=== PATIENT | male | born 1950 | race African-American/Black ===

== ENCOUNTER 2016-12-17 19:44 | Inpatient (IN) | payer OTHER ==
[2016-12-17 20:09] VITALS: BMI 47.0
--- NOTE | 2016-12-17 22:58 | PDOC ---
History of Present Illness - General History Source: Patient <Gordo Emerson - Last Filed: 12/18/16 01:12> - General History Source: Patient Exam Limitations: No Limitations - History of Present Illness Initial Comments: 12/17/16 23:10 The patient is a 65 year old male with significant past medical history of hypertension, hyperlipidemia, CKD, bladder CA with a urostomy s/p cystectomy () and cystostomy, CVA x2, and diabetes who presents to the ED for 4 days of chills. Patient reports he normally wears at sweatshirt at home because it gets cold. However, even with the sweatshirt on, he still has the chills. Denies any sick contacts. No urinary complaints as patient has a urostomy bag. Patient also has a complaints of generalized malaise. The patient denies fever, diaphoresis cough, SOB, chest pain, and palpitations. The patient denies abdominal pain, nausea, vomiting, and diarrhea. Allergies: NKDA Social History: No alcohol, tobacco, or drug use reported. Past Surgical History: s/p cystectomy (05/2014) and cystostomy PCP: Dr. Umang Howard Nephrology: Dr. Mariangel Kirkland <Olivia Yeh - Last Filed: 12/18/16 01:16> - General Chief Complaint: Weakness Stated Complaint: RESPIRATORY Time Seen by Provider: 12/17/16 22:56 Past History - Past Medical History Anemia: No Asthma: No Cancer: Yes (BLADDER CA W/REMOVAL AND UROSTOMY) Cardiac Disorders: ([facility]. DASH AT [facility]) CVA: Yes (2013) COPD: No CHF: No Dementia: No Diabetes: Yes Dialysis: No GI Disorders: No Disorders: Yes (UROSTOMY) HTN: Yes Hypercholesterolemia: Yes Liver Disease: No Seizures: No Thyroid Disease: No - Surgical History Abdominal Surgery: Yes (BLADDER REMOVED 05/2014 -UROSTOMY) Appendectomy: No Cardiac Surgery: No Cholecystectomy: No Lung Surgery: No Neurologic Surgery: No Orthopedic Surgery: Yes (left knee sx) - Immunization History Immunization Up to Date: Yes (FLU AND PNA UP TO DATE) - Psycho/Social/Smoking Cessation Hx Anxiety: No Suicidal Ideation: No Smoking Status: No Smoking History: Never smoked Have you smoked in the past 12 months: No If you are a former smoker, when did you quit?: 40 YRS AGO Information on smoking cessation initiated: No Hx Alcohol Use: No Drug/Substance Use Hx: No Substance Use Type: None Hx Substance Use Treatment: No <Gordo Emerson - Last Filed: 12/18/16 01:12> <ChapinLloyd sofiata - Last Filed: 12/18/16 01:16> - Past Medical History Allergies/Adverse Reactions: Allergies Allergy/AdvReac Type Severity Reaction Status Date / Time shrimp Allergy Intermediate Vomiting Verified 12/18/16 00:07 Home Medications: Ambulatory Orders Aspirin [Dianne Chewable Aspirin] 81 mg PO DAILY 07/30/15 Atorvastatin Ca [Lipitor] 10 mg PO HS 07/30/15 Doxazosin Mesylate 4 mg PO DAILY 07/30/15 Albuterol Sulfate [Proair Respiclick] 1 puff IH QID PRN 10/13/15 Ascorbate Calcium [Vitamin C] 500 mg PO DAILY 10/13/15 Beta-Carotene [Beta Carotene] 10,000 unit PO DAILY 10/13/15 Cholecalciferol (Vitamin D3) [Vitamin D3] 1,000 unit PO DAILY 10/13/15 Fluticasone/Salmeterol [Advair Hfa 115-21 Mcg Inhaler] 1 inh PO BID 10/13/15 Insulin Glargine,Hum.rec.anlog [Lantus (10mL VIAL) -] 0 units SQ ASDIR 10/13/15 Cyanocobalamin [Vitamin B12 -] 1,000 mcg PO DAILY 12/18/16 Furosemide [Lasix -] 40 mg PO BID 12/18/16 Gabapentin [Neurontin] 100 mg PO DAILY 12/18/16 Hydralazine HCl [Apresoline -] 50 mg PO DAILY 12/18/16 Multivitamins [Tab-A-Vit -] 1 tab PO DAILY 12/18/16 Sodium Bicarbonate - 650 mg PO BID 12/18/16 Review of Systems - Review of Systems Able to Perform ROS?: Yes Comments:: 12/17/16 23:11 CONSTITUTIONAL: +chills, generalized malaise Absent: fever, no fatigue EYES: Absent: visual changes ENT: Absent: ear pain, no sore throat CARDIOVASCULAR: Absent: chest pain, no palpitations RESPIRATORY: Absent: cough, no SOB GI: Absent: abdominal pain, no nausea, no vomiting, no constipation, no diarrhea GENITOURINARY: Absent: dysuria, no frequency, no hematuria MUSCULOSKELETAL: Absent: back pain, no arthralgia, no myalgia SKIN: Absent: rash NEURO: Absent: headache <Olivia Yeh - Last Filed: 12/18/16 01:16> *Physical Exam - Vital Signs Last Vital Signs Temp Pulse Resp BP Pulse Ox 100.5 F H 109 H 16 158/72 97 12/17/16 20:03 12/17/16 20:03 12/17/16 20:03 12/17/16 20:03 12/17/16 20:03 <Gordo Emerson - Last Filed: 12/18/16 01:12> - Vital Signs Last Vital Signs Temp Pulse Resp BP Pulse Ox 100.5 F H 109 H 16 158/72 97 12/17/16 20:03 12/17/16 20:03 12/17/16 20:03 12/17/16 20:03 12/17/16 20:03 - Physical Exam Comments: 12/17/16 23:11 GENERAL: Well-appearing, well-nourished. No apparent distress. HEENT: Normocephalic, atraumatic. PERRL, EOM intact. CARDIOVASCULAR: Normal S1, S2. Regular rate and rhythm. PULMONARY: Clear to auscultation bilaterally. ABDOMEN: Soft, non-distended, non-tender. : Urostomy bag site intact. Urine is yellow and clear. EXTREMITIES: Normal ROM in all four extremities. No gross deformities. SKIN: Warm, dry. No rash NEUROLOGICAL: No focal neurological deficits. <Olivia Yeh - Last Filed: 12/18/16 01:16> Heart Score/ECG Review - ECG Impressions Comment:: 12/17/16 23:16 Sinus tachycardia @106bpm Possible L atrial enlargement L anterior fascicular block L ventricular hypertrophy Abnormal ECG <Olivia Yeh - Last Filed: 12/18/16 01:16> ED Treatment Course - LABORATORY CBC & Chemistry Diagram: 12/17/16 23:30 12/17/16 23:30 <Gordo Emerson - Last Filed: 12/18/16 01:12> - LABORATORY CBC & Chemistry Diagram: 12/17/16 23:30 12/17/16 23:30 <Olivia Yeh - Last Filed: 12/18/16 01:16> Medical Decision Making - Medical Decision Making 12/18/16 01:12 Dr. Emerson: The scribe's documentation has been prepared under my direction and personally reviewed by me in its entirery. I confirm that the note above accurately reflects all work, treatment, procedures, and medical decision making performed by me. Pt to be admitted for IV Abx for UTI. Spoke to Dr. Anguiano. Will give ordrers to Med surg, <Gordo Emerson - Last Filed: 12/18/16 01:12> - Medical Decision Making 12/18/16 01:[address] Solomon Anguiano who is covering for Dr. Umang Howard (via answering service ) at 1:08 and patient's case was discussed. <Olivia Yeh - Last Filed: 12/18/16 01:16> *DC/Admit/Observation/Transfer - Discharge Dispostion Admit: Yes <Gordo Emerson - Last Filed: 12/18/16 01:12> - Attestations Scribe Attestion: 12/17/16 23:11 Documentation prepared by Olivia Yeh, acting as auditor medical claims for Gordo Emerson MD/DO. <Olivia Yeh - Last Filed: 12/18/16 01:16> Diagnosis at time of Disposition: Urinary tract infection, Fever - Referrals Referrals: Umang Howard MD [Primary Care Provider] -
[2016-12-17] MEDS ORDERED: SODIUM CHLORIDE 1,000 ML IV STA (22:59)
[2016-12-17] MEDS ORDERED: ACETAMINOPHEN 1000 MG/100 ML VIAL (NON FORMULARY) IVPB ONE (22:59)
[2016-12-17] MEDS ORDERED: ACETAMINOPHEN INJECTION 100 ML IVPB ONE (23:35)
[2016-12-17 23:42] LABS: MCH 27.5 pg (25.7-33.7); MCHC 32.6 g/dl (32.0-35.9); MEAN CELL VOLUME 84.2 fl (80-96); MEAN PLT VOLUME 8.4 fl (7.5-11.1); PLATELET COUNT 254 K/MM3 (134-434); RDW 15.2 % (11.9-15.9); WHITE BLOOD COUNT 23.2 K/mm3 (4.0-10.0)
[2016-12-17 23:51] LABS: INR 1.24 (0.82-1.09); PROTHROMBIN TIME (PATIENT) 13.7 SEC (9.98-11.88)
[2016-12-18 00:19] LABS: ALBUMIN 3.6 g/dl (3.4-5.0); ANION GAP 16 (8-16); CALCIUM 9.2 mg/dL (8.5-10.1); CO2 12 mmol/L (21-32); COCKROFT - GAULT 38.32; CREATININE 3.6 mg/dL (0.7-1.3); MAGNESIUM 2.4 mg/dL (1.8-2.4); SGOT/AST 10 U/L (15-37); SGPT/ALT 24 U/L (12-78)
[2016-12-18 00:23] LABS: ALK PHOS 79 U/L (45-117); BILIRUBIN,TOTAL 0.6 mg/dL (0.2-1.0); TOT PROT 8.4 g/dl (6.4-8.2); TROPONIN I < 0.02 ng/ml (0.00-0.05)
[2016-12-18 00:29] LABS: GLUCOSE,RANDOM 311 mg/dL (74-106)
[2016-12-18 01:13] LABS: URINE APPEARANCE CLOUDY; URINE BILIRUBIN NEGATIVE (NEGATIVE); URINE COLOR YELLOW; URINE GLUCOSE (UA) NEGATIVE (NEGATIVE); URINE KETONE NEGATIVE (NEGATIVE); URINE NITRITE NEGATIVE (NEGATIVE); URINE UROBILINOGEN NEGATIVE E.U./dl (0.2-1.0)
[2016-12-18 01:17] LABS: URINE BLOOD 1+ (NEGATIVE); URINE LEUK ESTERASE 2+ (NEGATIVE); URINE PROTEIN 2+ (NEGATIVE)
[2016-12-18] MEDS ORDERED: SODIUM CHLORIDE 1,000 ML IV SCH (01:30)
[2016-12-18] MEDS ORDERED: CEFTRIAXONE 50 ML ONE (01:30)
[2016-12-18 01:35] LABS: URINE BACTERIA RARE /hpf (NONE SEEN); URINE MUCUS RARE; URINE RBC 19 /hpf (0-3); URINE WBC 442 /hpf (3-5)
[2016-12-18] MEDS: INSULIN SLIDING SCALE (NOVOLOG) 1 VIAL SQ SCH ×4 (06:29→21:39)
[2016-12-18] MEDS ORDERED: PATIENT'S OWN MEDICATION (NON-FORMULARY) (Fluticasone/Salmeterol [Advair Hfa 115-21 Mcg In PO SCH (10:00)
[2016-12-18] MEDS: CHOLECALCIFEROL (VITAMIN D3) 1,000 UNIT TABLET (FP) PO SCH (11:22)
[2016-12-18] MEDS: ASPIRIN 81 MG CHEWABLE TABLETS PO SCH (11:22)
[2016-12-18] MEDS: hydrALAZINE HCL 50 MG TABLET (FP) PO SCH (11:22)
[2016-12-18] MEDS: GABAPENTIN 100 MG CAPSULE (FP) PO SCH (11:22)
[2016-12-18] MEDS: PANTOPRAZOLE 40 MG TABLET (FP) PO SCH (11:22)
[2016-12-18] MEDS: CYANOCOBALAMIN 1,000 MCG TABLET (FP) PO SCH (11:22)
[2016-12-18] MEDS: MULTIVITAMINS (DAILY MVI) TABLET (FP) PO SCH (11:23)
[2016-12-18] MEDS: SODIUM BICARBONATE 650 MG TABLET PO SCH ×2 (11:23→21:35)
[2016-12-18] MEDS ORDERED: INSULIN (NOVOLOG) ASPART 100 UNITS/ML 10ML VIAL ONE ×2 (11:29→20:52)
[2016-12-18] MEDS: ERTAPENEM SODIUM 1 GM in SODIUM CHLORIDE 50 ML IVPB SCH (11:33)
[2016-12-18 12:44] LABS: ARTERIAL BLD GAS O2 SATURATION 97.7 % (90-98.9); ARTERIAL BLOOD GAS BASE EXCESS -15.6 meq/l (-2-2); ARTERIAL BLOOD GAS HCO3 9.7 meq/L (22-26)
[2016-12-18 12:47] LABS: ALLENS TEST POSITIVE; ART PUNCT SITE RIGHT RADIAL; PT. ON O2? NO
[2016-12-18] MEDS: ACETAMINOPHEN 325 MG TABLET (FP) PO PRN ×2 (12:47→21:36)
[2016-12-18 12:48] LABS: ARTERIAL BLOOD GAS pH 7.26 (7.35-7.45)
--- NOTE | 2016-12-18 12:52 | CONSULT ---
Consult - text type - Consultation Consultation Note: Renal Consult for MEKA on CKD This is a 65 year old gentleman with PMhx of CKD stage 4 (baseline Cr ~2.3-2.8) , Bladder Ca s/p cystectomy with cystostomy, CVA, Hypertension, HLD, DM who presented with Chills and found to have UTI and MEKA on CKD. Pt reports feeling unwell for about 4-5 days. Denies seeing any blood in his urine or cloudy urine. No flank pain. No chest pain, sob, N/V/D. No NSAID use. No recent contrast exposure. PMhx: as above Allergies: NKDA Family Hx: NC Social Hx: No T/A/D ROS: as per HPI, all other pertinent ros negative Home Meds: Home Medications Medication Instructions Recorded Aspirin [Dianne Chewable Aspirin] 81 mg PO DAILY 07/30/15 Atorvastatin Ca [Lipitor] 10 mg PO HS 07/30/15 Doxazosin Mesylate 4 mg PO DAILY 07/30/15 Albuterol Sulfate [Proair 1 puff IH QID PRN 10/13/15 Respiclick] Ascorbate Calcium [Vitamin C] 500 mg PO DAILY 10/13/15 Beta-Carotene [Beta Carotene] 10,000 unit PO DAILY 10/13/15 Cholecalciferol (Vitamin D3) 1,000 unit PO DAILY 10/13/15 [Vitamin D3] Fluticasone/Salmeterol [Advair Hfa 1 inh PO BID 10/13/15 115-21 Mcg Inhaler] Insulin Glargine,Hum.rec.anlog 0 units SQ ASDIR 10/13/15 [Lantus (10mL VIAL) -] Cyanocobalamin [Vitamin B12 -] 1,000 mcg PO DAILY 12/18/16 Furosemide [Lasix -] 40 mg PO BID 12/18/16 Gabapentin [Neurontin] 100 mg PO DAILY 12/18/16 Hydralazine HCl [Apresoline -] 50 mg PO DAILY 12/18/16 Multivitamins [Tab-A-Vit -] 1 tab PO DAILY 12/18/16 Sodium Bicarbonate - 650 mg PO BID 12/18/16 Vital Signs Temperature 98.7 F 12/18/16 05:45 Pulse Rate 107 H 12/18/16 05:45 Respiratory Rate 20 12/18/16 05:45 Blood Pressure 114/72 12/18/16 05:45 O2 Sat by Pulse Oximetry (%) 99 12/18/16 05:45 Intake & Output 12/15/16 12/16/16 12/17/16 12/18/16 23:59 23:59 23:59 23:59 Intake Total 50 Balance 50 Weight 300 lb 291 lb 11.2 oz Gen: NAD, awake and alert CVS: RRR, No M/R Lungs: CTA, no rales Abd: soft NT/ND Ext: No edema, clubbing or cyanosis : Cystostomy on left LLQ Neuro: Awake and alert CBC, BMP 12/17/16 23:30 12/17/16 23:30 Laboratory Tests 12/17/16 12/17/16 12/17/16 23:30 23:30 23:30 MCV 84.2 Lactic Acid 1.7 Calcium 9.2 Albumin 3.6 Urine Protein Urine Blood Ur Leukocyte Esterase Urine RBC Urine WBC 12/18/16 00:57 MCV Lactic Acid Calcium Albumin Urine Protein 2+ H Urine Blood 1+ H Ur Leukocyte Esterase 2+ H Urine RBC 19 Urine WBC 442 Laboratory Tests 12/18/16 12:30 ABG pH 7.26 L D ABG pCO2 at Pt Temp 22.9 L ABG pO2 at Pt Temp 109.0 H ABG HCO3 9.7 L* Current Medications Acetaminophen (Tylenol -) 650 mg PO Q6H PRN PRN Reason: FEVER OR PAIN Last Admin: 12/18/16 12:47 Dose: 650 mg Aspirin (Asa -) 81 mg PO DAILY [facility] Last Admin: 12/18/16 11:22 Dose: 81 mg Atorvastatin Calcium (Lipitor -) 10 mg PO [facility] Cholecalciferol (Vitamin D3 -) 1,000 unit PO DAILY [facility] Last Admin: 12/18/16 11:22 Dose: 1,000 unit Cyanocobalamin (Vitamin B12 -) 1,000 mcg PO DAILY [facility] Last Admin: 12/18/16 11:22 Dose: 1,000 mcg Doxazosin Mesylate (Cardura -) 4 mg PO DAILY [facility] Gabapentin (Neurontin -) 100 mg PO DAILY [facility] Last Admin: 12/18/16 11:22 Dose: 100 mg Hydralazine HCl (Apresoline -) 50 mg PO DAILY [facility] Last Admin: 12/18/16 11:22 Dose: 50 mg Ertapenem 1 gm/ Sodium (Chloride) 50 mls @ 50 mls/hr IVPB DAILY [facility] PRN Reason: Protocol Last Admin: 12/18/16 11:33 Dose: 50 mls/hr Sodium Chloride (Normal Saline -) 1,000 mls @ 50 mls/hr IV ASDIR [facility] Stop: 12/19/16 01:30 Last Admin: 12/18/16 06:24 Dose: 50 mls/hr Insulin Aspart (Novolog Vial Sliding Scale -) 1 vial SQ ACHS [facility] PRN Reason: Protocol Last Admin: 12/18/16 11:40 Dose: 6 units Multivitamins/Minerals/Vitamin C (Tab-A-Vit -) 1 tab PO DAILY [facility] Last Admin: 12/18/16 11:23 Dose: 1 tab Non-Formulary Medication (Fluticasone/Salmeterol [Advair Hfa 115-21 Mcg Inhaler] ) 1 inh PO BID [facility] Ondansetron HCl (Zofran Injection) 4 mg IVPB Q6H PRN PRN Reason: NAUSEA Pantoprazole Sodium (Protonix -) 40 mg PO DAILY [facility] Last Admin: 12/18/16 11:22 Dose: 40 mg Sodium Bicarbonate (Sodium Bicarbonate -) 650 mg PO BID [facility] Last Admin: 12/18/16 11:23 Dose: 650 mg A/P 65 year old gentleman with PMhx of CKD stage 4 (baseline Cr ~2.3-2.8), Bladder Ca s/p cystectomy with cystostomy, CVA, Hypertension, HLD, DM who presented with Chills and found to have UTI and MEKA on CKD. #Acute Renal Failure likely etiology is volume depletion in setting of suspected UTI Check FeNa, UPCR continue isotonic IVF for now Trend BUN/Cr no indication for RECEPTIONIST Dose all meds for Cr Cl less then 15 #Non-anion gap metabolic acidosis with respiratory compensation secondary to Urinary Diversion causing chronic hypercloremic metabolic acidosis with worsening acidosis in setting of renal failure Start Bicarb gtt for now Pts outpatient bicab is usually 15-17. continue oral bicarb once Ph> 7.3 can d/c bicarb gtt and titrate oral bicab #UTI/Leukocytosis continue Abx as per primary/ID #Hx of Hypertension hold Cardura for now given marginal BP Thank you Will follow Freddie Forbes DO
[2016-12-18] MEDS ORDERED: ONDANSETRON 4 MG/2 ML VIAL IVPB PRN (12:53)
--- NOTE | 2016-12-18 12:56 | HP ---
Admitting History and Physical - Primary Care Physician PCP: Umang Howard - Admission Chief Complaint: I had chills History of Present Illness: Mr Isaacs is a pleasant 65 year old male who comes in with 4 days of chills. He says that he was very cold at home, particularly at night. He was wearing sweaters and was still feeling chills. He said he was shaking with this. He also had decreased appetite. He had pain on the right side of his back as well and he was concerned he had a kidney infection and for that came in. Aside from that he is without complaint. He denies fevers, lightheadedness, dizziness, passing out, chest pain, shortness of breath, nausea, vomiting, diarrhea, constipation, diarrhea, or swelling. He is still having chills and back pain. 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 History of Recent Travel: No Home Medications - Allergies Allergies/Adverse Reactions: Allergies Allergy/AdvReac Type Severity Reaction Status Date / Time shrimp Allergy Intermediate Vomiting Verified 12/18/16 00:07 - Home Medications Home Medications: Ambulatory Orders Aspirin [Dianne Chewable Aspirin] 81 mg PO DAILY 07/30/15 Atorvastatin Ca [Lipitor] 10 mg PO HS 07/30/15 Doxazosin Mesylate 4 mg PO DAILY 07/30/15 Albuterol Sulfate [Proair Respiclick] 1 puff IH QID PRN 10/13/15 Ascorbate Calcium [Vitamin C] 500 mg PO DAILY 10/13/15 Beta-Carotene [Beta Carotene] 10,000 unit PO DAILY 10/13/15 Cholecalciferol (Vitamin D3) [Vitamin D3] 1,000 unit PO DAILY 10/13/15 Fluticasone/Salmeterol [Advair Hfa 115-21 Mcg Inhaler] 1 inh PO BID 10/13/15 Insulin Glargine,Hum.rec.anlog [Lantus (10mL VIAL) -] 0 units SQ ASDIR 10/13/15 Cyanocobalamin [Vitamin B12 -] 1,000 mcg PO DAILY 12/18/16 Furosemide [Lasix -] 40 mg PO BID 12/18/16 Gabapentin [Neurontin] 100 mg PO DAILY 12/18/16 Hydralazine HCl [Apresoline -] 50 mg PO DAILY 12/18/16 Multivitamins [Tab-A-Vit -] 1 tab PO DAILY 12/18/16 Sodium Bicarbonate - 650 mg PO BID 12/18/16 Family Disease History - Family Disease History Family Disease History: Diabetes: Mother, CA: Father Review of Systems Findings/Remarks: Full review of systems obtained, as per HPI and otherwise negative Physical Examination Vital Signs: Vital Signs Temperature 98.7 F 12/18/16 05:45 Pulse Rate 107 H 12/18/16 05:45 Respiratory Rate 20 12/18/16 05:45 Blood Pressure 114/72 12/18/16 05:45 O2 Sat by Pulse Oximetry (%) 99 12/18/16 05:45 Constitutional: Yes: No Distress, Calm, Obese Eyes: Yes: Conjunctiva Clear, EOM Intact HENT: Yes: Atraumatic, Normocephalic Cardiovascular: Yes: Regular Rate and Rhythm. No: Gallop, Murmur, Rub Respiratory: Yes: Regular, CTA Bilaterally. No: Rales, Rhonchi, Wheezes Gastrointestinal: Yes: Normal Bowel Sounds, Soft. No: Distention, Tenderness Renal/: Yes: CVA Tenderness - Right Extremities: Yes: WNL Edema: No Labs: Laboratory Results - last 24 hr 12/17/16 12/17/16 12/17/16 23:30 23:30 23:30 WBC 23.2 H D RBC 4.47 Hgb 12.3 Hct 37.7 MCV 84.2 MCHC 32.6 RDW 15.2 Plt Count 254 MPV 8.4 Neutrophils % 93.0 H D Lymphocytes % 3.0 L D Monocytes % 3.0 L Eosinophils % 1.0 INR 1.24 H Puncture Site ABG pH ABG pCO2 at Pt Temp ABG pO2 at Pt Temp ABG HCO3 ABG O2 Sat (Measured) ABG O2 Content ABG Base Excess Ron Test Oxygen Flow Rate PEEP Sodium 136 Potassium 4.3 Chloride 108 H Carbon Dioxide 12 L Anion Gap 16 BUN 63 H Creatinine 3.6 H D Creat Clearance w eGFR 17.00 POC Glucometer Random Glucose 311 H* Lactic Acid Calcium 9.2 Magnesium Total Bilirubin 0.6 D AST 10 L D ALT 24 Alkaline Phosphatase 79 Creatine Kinase 127 Troponin I < 0.02 B-Natriuretic Peptide Total Protein 8.4 H Albumin 3.6 Lipase Urine Color Urine Appearance Urine pH Ur Specific [place] Urine Protein Urine Glucose (UA) Urine Ketones Urine Blood Urine Nitrite Urine Bilirubin Urine Urobilinogen Ur Leukocyte Esterase Urine RBC Urine WBC Ur Epithelial Cells Urine Bacteria Urine Mucus 12/17/16 12/17/16 12/18/16 23:30 23:30 00:57 WBC RBC Hgb Hct MCV MCHC RDW Plt Count MPV Neutrophils % Lymphocytes % Monocytes % Eosinophils % INR Puncture Site ABG pH ABG pCO2 at Pt Temp ABG pO2 at Pt Temp ABG HCO3 ABG O2 Sat (Measured) ABG O2 Content ABG Base Excess Ron Test Oxygen Flow Rate PEEP Sodium Potassium Chloride Carbon Dioxide Anion Gap BUN Creatinine Creat Clearance w eGFR POC Glucometer Random Glucose Lactic Acid 1.7 Calcium Magnesium 2.4 Total Bilirubin AST ALT Alkaline Phosphatase Creatine Kinase Troponin I B-Natriuretic Peptide 118.80 Total Protein Albumin Lipase 162 Urine Color Yellow Urine Appearance Cloudy Urine pH 8.0 D Ur Specific [place] 1.010 Urine Protein 2+ H Urine Glucose (UA) Negative Urine Ketones Negative Urine Blood 1+ H Urine Nitrite Negative Urine Bilirubin Negative Urine Urobilinogen Negative Ur Leukocyte Esterase 2+ H Urine RBC 19 Urine WBC 442 Ur Epithelial Cells Rare Urine Bacteria Rare Urine Mucus Rare 12/18/16 12/18/16 12/18/16 06:25 11:38 12:30 WBC RBC Hgb Hct MCV MCHC RDW Plt Count MPV Neutrophils % Lymphocytes % Monocytes % Eosinophils % INR Puncture Site Right radial ABG pH 7.26 L D ABG pCO2 at Pt Temp 22.9 L ABG pO2 at Pt Temp 109.0 H ABG HCO3 9.7 L* ABG O2 Sat (Measured) 97.7 ABG O2 Content 18.0 ABG Base Excess -15.6 L* Ron Test Positive Oxygen Flow Rate No PEEP 0.0 Sodium Potassium Chloride Carbon Dioxide Anion Gap BUN Creatinine Creat Clearance w eGFR POC Glucometer 307 288 Random Glucose Lactic Acid Calcium Magnesium Total Bilirubin AST ALT Alkaline Phosphatase Creatine Kinase Troponin I B-Natriuretic Peptide Total Protein Albumin Lipase Urine Color Urine Appearance Urine pH Ur Specific [place] Urine Protein Urine Glucose (UA) Urine Ketones Urine Blood Urine Nitrite Urine Bilirubin Urine Urobilinogen Ur Leukocyte Esterase Urine RBC Urine WBC Ur Epithelial Cells Urine Bacteria Urine Mucus Problem List - Problems (1) Sepsis Assessment/Plan: -as evidenced by leukocytosis with left shift, acidosis, and positive blood cultures -most likely source is UTI -admit to the hospital -antibiotics -hydration with IVF Code(s): A41.9 - SEPSIS, UNSPECIFIED ORGANISM Qualifiers: Qualified Code(s): A41.51 - Sepsis due to Escherichia coli [E. coli] (2) Metabolic acidosis Assessment/Plan: -secondary to infection -nephrology following -on bicarb gtt -treat underlying sepsis Code(s): E87.2 - ACIDOSIS (3) Urinary tract infection Assessment/Plan: -has history of ESBL e. coli -ID consulted -started on ertapenem -await culture results Code(s): N39.0 - URINARY TRACT INFECTION, SITE NOT SPECIFIED Qualifiers: Indwelling urinary catheter type: cystostomy catheter Encounter type: initial encounter (4) ARF (acute renal failure) Assessment/Plan: -with CKD -nephrology following -hydration with bicarb gtt Code(s): N17.9 - ACUTE KIDNEY FAILURE, UNSPECIFIED Qualifiers: Acute renal failure type: unspecified Qualified Code(s): N17.9 - Acute kidney failure, unspecified (5) Diabetes Assessment/Plan: -with hyperglycemia secondary to IVF -continue SSI Code(s): E11.9 - TYPE 2 DIABETES MELLITUS WITHOUT COMPLICATIONS Qualifiers: Diabetes mellitus type: type 2 Diabetes mellitus complication status: with kidney complications Diabetes mellitus complication detail: with chronic kidney disease Chronic kidney disease stage: stage 3 (moderate) Qualified Code(s): E11.22 - Type 2 diabetes mellitus with diabetic chronic kidney disease; N18.1 - Chronic kidney disease, stage 1; 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
--- NOTE | 2016-12-18 15:23 | CONSULT ---
Consult Consult Specialty:: ifectious diseases Referred by:: Reason for Consultation:: fever,uti - History of Present Illness Chief Complaint: fever,shaking and chills History of Present Illness: 65 year old male with significant past medical history of hypertension, hyperlipidemia, CKD, bladder CA with a urostomy s/p cystectomy (05/2014) and cystostomy, CVA x2, and diabetes who is admitted because 4 days of chills. Patient reports that he was wearing sweat shirt with hoods because he was feeling cold However, even with the sweatshirt on, he still has the chills. Denies any sick contacts. No urinary complaints as patient has a urostomy bag. Patient also has a complaints of generalized malaise. 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 Cardio/Vascular: Yes: HTN, Hyperlipdemia Renal/: Yes: Other (lucy durand) Endocrine: Yes: Diabetes Mellitus - Past Surgical History Past Surgical History: Yes: Cystectomy (05/2014) - Alcohol/Substance Use Hx Alcohol Use: No History of Substance Use: reports: None - Smoking History Smoking history: Never smoked Have you smoked in the past 12 months: No If you are a former smoker, when did you quit?: 40 YRS AGO - Social History Usual Living Arrangement: Alone ADL: Independent 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 History of Recent Travel: No Home Medications - Allergies Allergies/Adverse Reactions: Allergies Allergy/AdvReac Type Severity Reaction Status Date / Time shrimp Allergy Intermediate Vomiting Verified 12/18/16 00:07 - Home Medications Home Medications: Ambulatory Orders Aspirin [Dianne Chewable Aspirin] 81 mg PO DAILY 07/30/15 Atorvastatin Ca [Lipitor] 10 mg PO HS 07/30/15 Doxazosin Mesylate 4 mg PO DAILY 07/30/15 Albuterol Sulfate [Proair Respiclick] 1 puff IH QID PRN 10/13/15 Ascorbate Calcium [Vitamin C] 500 mg PO DAILY 10/13/15 Beta-Carotene [Beta Carotene] 10,000 unit PO DAILY 10/13/15 Cholecalciferol (Vitamin D3) [Vitamin D3] 1,000 unit PO DAILY 10/13/15 Fluticasone/Salmeterol [Advair Hfa 115-21 Mcg Inhaler] 1 inh PO BID 10/13/15 Insulin Glargine,Hum.rec.anlog [Lantus (10mL VIAL) -] 0 units SQ ASDIR 10/13/15 Cyanocobalamin [Vitamin B12 -] 1,000 mcg PO DAILY 12/18/16 Furosemide [Lasix -] 40 mg PO BID 12/18/16 Gabapentin [Neurontin] 100 mg PO DAILY 12/18/16 Hydralazine HCl [Apresoline -] 50 mg PO DAILY 12/18/16 Multivitamins [Tab-A-Vit -] 1 tab PO DAILY 12/18/16 Sodium Bicarbonate - 650 mg PO BID 12/18/16 Family Disease History - Family Disease History Family Disease History: Diabetes: Mother, CA: Father Review of Systems - Review of Systems Constitutional: reports: Chills, Fever, Other (sweats) Eyes: reports: No Symptoms Neck: reports: No Symptoms Cardiovascular: reports: No Symptoms Respiratory: reports: No Symptoms Gastrointestinal: reports: No Symptoms Genitourinary: reports: No Symptoms Musculoskeletal: reports: No Symptoms Integumentary: reports: No Symptoms Neurological: reports: No Symptoms Endocrine: reports: No Symptoms Hematology/Lymphatic: reports: No Symptoms Psychiatric: reports: No Symptoms Physical Exam Vital Signs: Vital Signs Temperature 98.7 F 12/18/16 05:45 Pulse Rate 107 H 12/18/16 05:45 Respiratory Rate 20 12/18/16 05:45 Blood Pressure 114/72 12/18/16 05:45 O2 Sat by Pulse Oximetry (%) 99 12/18/16 05:45 Constitutional: Yes: Calm, Mild Distress, Obese Eyes: Yes: Conjunctiva Clear Neck: Yes: Supple Cardiovascular: Yes: Regular Rate and Rhythm Respiratory: Yes: Regular, CTA Bilaterally Gastrointestinal: Yes: Normal Bowel Sounds, Soft, Other (urostomy bag in place) Renal/: Yes: Other (urostomy). No: CVA Tenderness - Left, CVA Tenderness - Right Musculoskeletal: Yes: WNL Extremities: Yes: WNL Neurological: Yes: Alert, Oriented Psychiatric: Yes: Alert, Oriented Imaging - Results Chest X-ray: Report Reviewed, Image Reviewed Assessment/Plan Problems (1) Sepsis Code(s): A41.9 - SEPSIS, UNSPECIFIED ORGANISM (2) Metabolic acidosis Code(s): E87.2 - ACIDOSIS (3) Urinary tract infection Code(s): N39.0 - URINARY TRACT INFECTION, SITE NOT SPECIFIED Qualifiers: Indwelling urinary catheter type: cystostomy catheter Encounter type: initial encounter (4) ARF (acute renal failure) Code(s): N17.9 - ACUTE KIDNEY FAILURE, UNSPECIFIED Qualifiers: Acute renal failure type: unspecified Qualified Code(s): N17.9 - Acute kidney failure, unspecified (5) Diabetes Code(s): E11.9 - TYPE 2 DIABETES MELLITUS WITHOUT COMPLICATIONS Qualifiers: Diabetes mellitus type: type 2 Diabetes mellitus complication status: with kidney complications Diabetes mellitus complication detail: with chronic kidney disease Chronic kidney disease stage: stage 3 (moderate) (6) Hypertension Code(s): I10 - ESSENTIAL (PRIMARY) HYPERTENSION Qualifiers: Hypertension type: essential hypertension Qualified Code(s): I10 - Essential (primary) hypertension gm negative bacteremia plan started on iv abx we will continue close watch on the patient if patient becomes septic monitor rest as per primary we will recx on thursday
--- NOTE | 2016-12-18 16:27 | EKG ---
Test Reason : Blood Pressure : / mmHG Vent. Rate : 106 BPM Atrial Rate : 106 BPM P-R Int : 190 ms QRS Dur : 104 ms QT Int : 352 ms P-R-T Axes : 033 -53 084 degrees QTc Int : 467 ms POOR DATA QUALITY, INTERPRETATION MAY BE ADVERSELY AFFECTED SINUS TACHYCARDIA POSSIBLE LEFT ATRIAL ENLARGEMENT LEFT ANTERIOR FASCICULAR BLOCK LEFT VENTRICULAR HYPERTROPHY ABNORMAL ECG WHEN COMPARED WITH ECG OF 13-OCT-2015 12:42, NO SIGNIFICANT CHANGE WAS FOUND Confirmed by GRACE CAMPBELL MD ([id number]) on 12/18/2016 4:27:00 PM Referred By: Confirmed By:GRACE CAMPBELL MD
[2016-12-18] MEDS: SODIUM BICARBONATE 8.4% - 150 MEQ in DEXTROSE 5%-WATER - 1,000 ML IV SCH (17:53)
[2016-12-18] MEDS: DOXAZOSIN MESYLATE 4 MG TABLET PO SCH (17:54)
[2016-12-18] MEDS: ATORVASTATIN CA 10 MG TABLET (FP) PO SCH (21:35)
[2016-12-19] MEDS: ACETAMINOPHEN 325 MG TABLET (FP) PO PRN (05:46)
[2016-12-19] MEDS: SODIUM BICARBONATE 8.4% - 150 MEQ in DEXTROSE 5%-WATER - 1,000 ML IV SCH ×3 (05:47→22:17)
[2016-12-19] MEDS: INSULIN SLIDING SCALE (NOVOLOG) 1 VIAL SQ SCH ×5 (06:23→22:16)
[2016-12-19 07:20] LABS: BASOPHIL 0.3 % (0-2.0); EOSINOPHIL 0.2 % (0-4.5); MCH 28.3 pg (25.7-33.7); MCHC 34.1 g/dl (32.0-35.9); MEAN CELL VOLUME 83.1 fl (80-96); NEUTROPHILS 89.7 % (42.8-82.8); PLATELET COUNT 213 K/MM3 (134-434); RDW 15.2 % (11.9-15.9); WHITE BLOOD COUNT 16.7 K/mm3 (4.0-10.0)
[2016-12-19 09:16] LABS: ALBUMIN 3.2 g/dl (3.4-5.0); BILIRUBIN,TOTAL 0.4 mg/dL (0.2-1.0); CALCIUM 8.4 mg/dL (8.5-10.1); COCKROFT - GAULT 40.65; CREATININE 3.3 mg/dL (0.7-1.3); TOT PROT 7.4 g/dl (6.4-8.2)
[2016-12-19] MEDS ORDERED: PT OWN MED DRAWER 7, Y5N ONE ×2 (09:21→09:23)
[2016-12-19] MEDS: PANTOPRAZOLE 40 MG TABLET (FP) PO SCH (09:34)
[2016-12-19] MEDS: GABAPENTIN 100 MG CAPSULE (FP) PO SCH (09:34)
[2016-12-19] MEDS: MULTIVITAMINS (DAILY MVI) TABLET (FP) PO SCH (09:34)
[2016-12-19] MEDS: CYANOCOBALAMIN 1,000 MCG TABLET (FP) PO SCH (09:34)
[2016-12-19] MEDS: ASPIRIN 81 MG CHEWABLE TABLETS PO SCH (09:34)
[2016-12-19] MEDS: hydrALAZINE HCL 50 MG TABLET (FP) PO SCH (09:34)
[2016-12-19] MEDS: CHOLECALCIFEROL (VITAMIN D3) 1,000 UNIT TABLET (FP) PO SCH (09:34)
[2016-12-19] MEDS: SODIUM BICARBONATE 650 MG TABLET PO SCH ×2 (09:34→22:16)
[2016-12-19] MEDS: DOXAZOSIN MESYLATE 4 MG TABLET PO SCH (09:35)
[2016-12-19] MEDS: ERTAPENEM SODIUM 1 GM in SODIUM CHLORIDE 50 ML IVPB SCH (09:42)
--- NOTE | 2016-12-19 10:40 | PN ---
Progress Note, Physician Chief Complaint: Mr Isaacs says he is feeling better today. Still with some chills but much improved. No cp, sob, n/v. - Current Medication List Current Medications: Active Medications Acetaminophen (Tylenol -) 650 mg PO Q6H PRN PRN Reason: FEVER OR PAIN Last Admin: 12/19/16 05:46 Dose: 650 mg Aspirin (Asa -) 81 mg PO DAILY [facility] Last Admin: 12/19/16 09:34 Dose: 81 mg Atorvastatin Calcium (Lipitor -) 10 mg PO HS [facility] Last Admin: 12/18/16 21:35 Dose: 10 mg Cholecalciferol (Vitamin D3 -) 1,000 unit PO DAILY [facility] Last Admin: 12/19/16 09:34 Dose: 1,000 unit Cyanocobalamin (Vitamin B12 -) 1,000 mcg PO DAILY [facility] Last Admin: 12/19/16 09:34 Dose: 1,000 mcg Doxazosin Mesylate (Cardura -) 4 mg PO DAILY [facility] Last Admin: 12/19/16 09:35 Dose: 4 mg Gabapentin (Neurontin -) 100 mg PO DAILY [facility] Last Admin: 12/19/16 09:34 Dose: 100 mg Hydralazine HCl (Apresoline -) 50 mg PO DAILY [facility] Last Admin: 12/19/16 09:34 Dose: 50 mg Ertapenem 1 gm/ Sodium (Chloride) 50 mls @ 50 mls/hr IVPB DAILY [facility] PRN Reason: Protocol Last Admin: 12/19/16 09:42 Dose: 50 mls/hr Sodium Bicarbonate 150 meq/ (Dextrose) 1,150 mls @ 100 mls/hr IV Q11H [facility] Insulin Aspart (Novolog Vial Sliding Scale -) 1 vial SQ ACHS [facility] PRN Reason: Protocol Last Admin: 12/19/16 06:24 Dose: 4 units Multivitamins/Minerals/Vitamin C (Tab-A-Vit -) 1 tab PO DAILY [facility] Last Admin: 12/19/16 09:34 Dose: 1 tab Non-Formulary Medication (Fluticasone/Salmeterol [Advair Hfa 115-21 Mcg Inhaler] ) 1 inh PO BID [facility] Ondansetron HCl (Zofran Injection) 4 mg IVPB Q6H PRN PRN Reason: NAUSEA Pantoprazole Sodium (Protonix -) 40 mg PO DAILY [facility] Last Admin: 12/19/16 09:34 Dose: 40 mg Sodium Bicarbonate (Sodium Bicarbonate -) 650 mg PO BID [facility] Last Admin: 12/19/16 09:34 Dose: 650 mg - Objective Vital Signs: Vital Signs Temperature 100.9 F H 12/19/16 06:00 Pulse Rate 106 H 12/19/16 06:00 Respiratory Rate 22 12/19/16 06:00 Blood Pressure 161/77 12/19/16 06:00 O2 Sat by Pulse Oximetry (%) 95 12/18/16 21:00 Constitutional: Yes: No Distress, Calm, Obese Cardiovascular: Yes: Regular Rate and Rhythm. No: Gallop, Murmur, Rub Respiratory: Yes: Regular, CTA Bilaterally. No: Rales, Rhonchi, Wheezes Gastrointestinal: Yes: Normal Bowel Sounds, Soft. No: Distention, Tenderness Extremities: Yes: WNL Edema: No Labs: CBC, BMP 12/19/16 06:00 12/19/16 06:00 INR, PTT INR 1.24 (0.82-1.09) H 12/17/16 23:30 Problem List - Problems (1) Sepsis Code(s): A41.9 - SEPSIS, UNSPECIFIED ORGANISM (2) Metabolic acidosis Code(s): E87.2 - ACIDOSIS (3) Urinary tract infection Code(s): N39.0 - URINARY TRACT INFECTION, SITE NOT SPECIFIED Qualifiers: Indwelling urinary catheter type: cystostomy catheter Encounter type: initial encounter (4) ARF (acute renal failure) Code(s): N17.9 - ACUTE KIDNEY FAILURE, UNSPECIFIED Qualifiers: Acute renal failure type: unspecified Qualified Code(s): N17.9 - Acute kidney failure, unspecified (5) Diabetes Code(s): E11.9 - TYPE 2 DIABETES MELLITUS WITHOUT COMPLICATIONS Qualifiers: Diabetes mellitus type: type 2 Diabetes mellitus complication status: with kidney complications Diabetes mellitus complication detail: with chronic kidney disease Chronic kidney disease stage: stage 3 (moderate) (6) Hypertension Code(s): I10 - ESSENTIAL (PRIMARY) HYPERTENSION Qualifiers: Hypertension type: essential hypertension Qualified Code(s): I10 - Essential (primary) hypertension Assessment/Plan (1) Sepsis Assessment/Plan -improving -both blood and urine culture are positive -continue IVF per nephrology -continue antibiotics per ID Code(s): A41.9 - SEPSIS, UNSPECIFIED ORGANISM Qualifiers: Qualified Code(s): A41.51 - Sepsis due to Escherichia coli [E. coli] (2) Metabolic acidosis Assessment/Plan: -has baseline non-anion gap metabolic acidosis -however worsened by sepsis -case d/w nephrology -increase rate of bicarb gtt Code(s): E87.2 - ACIDOSIS (3) Urinary tract infection Assessment/Plan: -urine culture with three different bacteria -continue ertapenem per ID -defer to Dr Baires if escalation is needed Code(s): N39.0 - URINARY TRACT INFECTION, SITE NOT SPECIFIED Qualifiers: Indwelling urinary catheter type: cystostomy catheter Encounter type: initial encounter (4) ARF (acute renal failure) Assessment/Plan: -with CKD -case d/w nephrology -increase rate of fluid -improving Code(s): N17.9 - ACUTE KIDNEY FAILURE, UNSPECIFIED Qualifiers: Acute renal failure type: unspecified Qualified Code(s): N17.9 - Acute kidney failure, unspecified (5) Diabetes Assessment/Plan: -with hyperglycemia secondary to IVF -continue SSI Code(s): E11.9 - TYPE 2 DIABETES MELLITUS WITHOUT COMPLICATIONS Qualifiers: Diabetes mellitus type: type 2 Diabetes mellitus complication status: with kidney complications Diabetes mellitus complication detail: with chronic kidney disease Chronic kidney disease stage: stage 3 (moderate) Qualified Code(s): E11.22 - Type 2 diabetes mellitus with diabetic chronic kidney disease; N18.1 - Chronic kidney disease, stage 1; Z79.4 - correction ( 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 of insulin (6) Hypertension Assessment/Plan: -continue cardura and hydralazine Code(s): I10 - ESSENTIAL (PRIMARY) HYPERTENSION Qualifiers: Hypertension type: essential hypertension Qualified Code(s): I10 - Essential (primary) hypertension
--- NOTE | 2016-12-19 11:04 | PN ---
Progress Note (short form) - Note Progress Note: Renal follow up for MEKA on CKD and Metabolic acidosis Pt seen and examined at the bedside no acute complaints reports that he feels much better good urine output from cystostomy Vital Signs Temperature 100.9 F H 12/19/16 06:00 Pulse Rate 106 H 12/19/16 06:00 Respiratory Rate 22 12/19/16 06:00 Blood Pressure 161/77 12/19/16 06:00 O2 Sat by Pulse Oximetry (%) 95 12/18/16 21:00 Intake & Output 12/16/16 12/17/16 12/18/16 12/19/16 23:59 23:59 23:59 23:59 Intake Total 860 913 Output Total 800 800 Balance 60 113 Weight 300 lb 291 lb 11.2 oz Gen: NAD, awake and alert CVS: RRR, No M/R Lungs: CTA, no rales Abd: soft NT/ND Ext: No edema, clubbing or cyanosis : Cystostomy on left LLQ Neuro: Awake and alert CBC, BMP 12/19/16 06:00 12/19/16 06:00 Laboratory Tests 12/19/16 06:00 Calcium 8.4 L Albumin 3.2 L Current Medications Acetaminophen (Tylenol -) 650 mg PO Q6H PRN PRN Reason: FEVER OR PAIN Last Admin: 12/19/16 05:46 Dose: 650 mg Aspirin (Asa -) 81 mg PO DAILY [facility] Last Admin: 12/19/16 09:34 Dose: 81 mg Atorvastatin Calcium (Lipitor -) 10 mg PO [facility] Last Admin: 12/18/16 21:35 Dose: 10 mg Cholecalciferol (Vitamin D3 -) 1,000 unit PO DAILY [facility] Last Admin: 12/19/16 09:34 Dose: 1,000 unit Cyanocobalamin (Vitamin B12 -) 1,000 mcg PO DAILY [facility] Last Admin: 12/19/16 09:34 Dose: 1,000 mcg Doxazosin Mesylate (Cardura -) 4 mg PO DAILY [facility] Last Admin: 12/19/16 09:35 Dose: 4 mg Gabapentin (Neurontin -) 100 mg PO DAILY [facility] Last Admin: 12/19/16 09:34 Dose: 100 mg Hydralazine HCl (Apresoline -) 50 mg PO DAILY [facility] Last Admin: 12/19/16 09:34 Dose: 50 mg Ertapenem 1 gm/ Sodium (Chloride) 50 mls @ 50 mls/hr IVPB DAILY [facility] PRN Reason: Protocol Last Admin: 12/19/16 09:42 Dose: 50 mls/hr Sodium Bicarbonate 150 meq/ (Dextrose) 1,150 mls @ 100 mls/hr IV Q11H [facility] Insulin Aspart (Novolog Vial Sliding Scale -) 1 vial SQ ACHS [facility] PRN Reason: Protocol Last Admin: 12/19/16 06:24 Dose: 4 units Multivitamins/Minerals/Vitamin C (Tab-A-Vit -) 1 tab PO DAILY [facility] Last Admin: 12/19/16 09:34 Dose: 1 tab Non-Formulary Medication (Fluticasone/Salmeterol [Advair Hfa 115-21 Mcg Inhaler] ) 1 inh PO BID [facility] Ondansetron HCl (Zofran Injection) 4 mg IVPB Q6H PRN PRN Reason: NAUSEA Pantoprazole Sodium (Protonix -) 40 mg PO DAILY [facility] Last Admin: 12/19/16 09:34 Dose: 40 mg Sodium Bicarbonate (Sodium Bicarbonate -) 650 mg PO BID [facility] Last Admin: 12/19/16 09:34 Dose: 650 mg A/P 65 year old gentleman with PMhx of CKD stage 4 (baseline Cr ~2.3-2.8), Bladder Ca s/p cystectomy with cystostomy, CVA, Hypertension, HLD, DM who presented with Chills and found to have UTI and MEKA on CKD. 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
[2016-12-19] MEDS ORDERED: INSULIN (NOVOLOG) ASPART 100 UNITS/ML 10ML VIAL ONE ×2 (11:53→22:08)
--- NOTE | 2016-12-19 13:21 | PN ---
Progress Note, Physician History of Present Illness: stable looks much better clinically feels much better - Current Medication List Current Medications: Active Medications Acetaminophen (Tylenol -) 650 mg PO Q6H PRN PRN Reason: FEVER OR PAIN Last Admin: 12/19/16 05:46 Dose: 650 mg Aspirin (Asa -) 81 mg PO DAILY [facility] Last Admin: 12/19/16 09:34 Dose: 81 mg Atorvastatin Calcium (Lipitor -) 10 mg PO HS [facility] Last Admin: 12/18/16 21:35 Dose: 10 mg Cholecalciferol (Vitamin D3 -) 1,000 unit PO DAILY [facility] Last Admin: 12/19/16 09:34 Dose: 1,000 unit Cyanocobalamin (Vitamin B12 -) 1,000 mcg PO DAILY [facility] Last Admin: 12/19/16 09:34 Dose: 1,000 mcg Doxazosin Mesylate (Cardura -) 4 mg PO DAILY [facility] Last Admin: 12/19/16 09:35 Dose: 4 mg Gabapentin (Neurontin -) 100 mg PO DAILY [facility] Last Admin: 12/19/16 09:34 Dose: 100 mg Hydralazine HCl (Apresoline -) 50 mg PO DAILY [facility] Last Admin: 12/19/16 09:34 Dose: 50 mg Ertapenem 1 gm/ Sodium (Chloride) 50 mls @ 50 mls/hr IVPB DAILY [facility] PRN Reason: Protocol Last Admin: 12/19/16 09:42 Dose: 50 mls/hr Sodium Bicarbonate 150 meq/ (Dextrose) 1,150 mls @ 100 mls/hr IV Q11H [facility] Last Admin: 12/19/16 12:24 Dose: 100 mls/hr Insulin Aspart (Novolog Vial Sliding Scale -) 1 vial SQ ACHS [facility] PRN Reason: Protocol Last Admin: 12/19/16 12:00 Dose: 6 units Multivitamins/Minerals/Vitamin C (Tab-A-Vit -) 1 tab PO DAILY [facility] Last Admin: 12/19/16 09:34 Dose: 1 tab Non-Formulary Medication (Fluticasone/Salmeterol [Advair Hfa 115-21 Mcg Inhaler] ) 1 inh PO BID [facility] Ondansetron HCl (Zofran Injection) 4 mg IVPB Q6H PRN PRN Reason: NAUSEA Pantoprazole Sodium (Protonix -) 40 mg PO DAILY [facility] Last Admin: 12/19/16 09:34 Dose: 40 mg Sodium Bicarbonate (Sodium Bicarbonate -) 650 mg PO BID [facility] Last Admin: 12/19/16 09:34 Dose: 650 mg - Objective Vital Signs: Vital Signs Temperature 100.9 F H 12/19/16 06:00 Pulse Rate 106 H 12/19/16 06:00 Respiratory Rate 22 12/19/16 06:00 Blood Pressure 161/77 12/19/16 06:00 O2 Sat by Pulse Oximetry (%) 95 12/18/16 21:00 Constitutional: Yes: No Distress, Calm, Obese Cardiovascular: Yes: Regular Rate and Rhythm Respiratory: Yes: Regular, CTA Bilaterally Gastrointestinal: Yes: Normal Bowel Sounds, Soft, Other (urostomy bag in place) Musculoskeletal: Yes: WNL Extremities: Yes: WNL Neurological: Yes: Alert, Oriented Psychiatric: Yes: Alert Labs: CBC, BMP 12/19/16 06:00 12/19/16 06:00 INR, PTT INR 1.24 (0.82-1.09) H 12/17/16 23:30 Assessment/Plan Problems (1) Sepsis Code(s): A41.9 - SEPSIS, UNSPECIFIED ORGANISM (2) Metabolic acidosis Code(s): E87.2 - ACIDOSIS (3) Urinary tract infection Code(s): N39.0 - URINARY TRACT INFECTION, SITE NOT SPECIFIED Qualifiers: Indwelling urinary catheter type: cystostomy catheter Encounter type: initial encounter (4) ARF (acute renal failure) Code(s): N17.9 - ACUTE KIDNEY FAILURE, UNSPECIFIED Qualifiers: Acute renal failure type: unspecified Qualified Code(s): N17.9 - Acute kidney failure, unspecified (5) Diabetes Code(s): E11.9 - TYPE 2 DIABETES MELLITUS WITHOUT COMPLICATIONS Qualifiers: Diabetes mellitus type: type 2 Diabetes mellitus complication status: with kidney complications Diabetes mellitus complication detail: with chronic kidney disease Chronic kidney disease stage: stage 3 (moderate) (6) Hypertension Code(s): I10 - ESSENTIAL (PRIMARY) HYPERTENSION Qualifiers: Hypertension type: essential hypertension Qualified Code(s): I10 - Essential (primary) hypertension gm negative bacteremia plan continue iv abx perkins end blood cx tomorrow await for identification of the bacteria and sensitivities rest as per primary team
[2016-12-19 15:23] LABS: SODIUM,RANDOM URINE 32 MMOL/L
[2016-12-19 15:24] LABS: CHLORIDE,RANDOM URINE < 10 MMOL/L
[2016-12-19] MEDS: ATORVASTATIN CA 10 MG TABLET (FP) PO SCH (22:16)
[2016-12-20] MEDS: INSULIN SLIDING SCALE (NOVOLOG) 1 VIAL SQ SCH ×4 (06:15→22:19)
[2016-12-20] MEDS: SODIUM BICARBONATE 8.4% - 150 MEQ in DEXTROSE 5%-WATER - 1,000 ML IV SCH ×3 (06:16→22:18)
[2016-12-20 07:21] LABS: BASOPHIL 0.3 % (0-2.0); EOSINOPHIL 0.8 % (0-4.5); MCH 28.9 pg (25.7-33.7); MCHC 35.6 g/dl (32.0-35.9); MEAN CELL VOLUME 81.1 fl (80-96); MEAN PLT VOLUME 7.9 fl (7.5-11.1); PLATELET COUNT 221 K/MM3 (134-434); RDW 15.2 % (11.9-15.9); WHITE BLOOD COUNT 10.5 K/mm3 (4.0-10.0)
--- NOTE | 2016-12-20 07:28 | PN ---
Progress Note (short form) - Note Progress Note: Renal follow up for MEKA on CKD and Metabolic acidosis Pt seen and examined at the bedside no complaints denies sob, chest pain, abd pain, fever Vital Signs Temperature 100.2 F H 12/19/16 22:00 Pulse Rate 92 H 12/19/16 22:00 Respiratory Rate 20 12/19/16 22:00 Blood Pressure 153/74 12/19/16 22:00 O2 Sat by Pulse Oximetry (%) 96 12/19/16 21:00 Intake & Output 12/17/16 12/18/16 12/19/16 12/20/16 23:59 23:59 23:59 23:59 Intake Total 860 1363 Output Total 800 1775 Balance 60 -412 Weight 300 lb 291 lb 11.2 oz Gen: NAD, awake and alert CVS: RRR, No M/R Lungs: CTA, no rales Abd: soft NT/ND Ext: No edema, clubbing or cyanosis : Cystostomy on left LLQ Todays labs pending Current Medications Acetaminophen (Tylenol -) 650 mg PO Q6H PRN PRN Reason: FEVER OR PAIN Last Admin: 12/19/16 05:46 Dose: 650 mg Aspirin (Asa -) 81 mg PO DAILY [facility] Last Admin: 12/19/16 09:34 Dose: 81 mg Atorvastatin Calcium (Lipitor -) 10 mg PO HS [facility] Last Admin: 12/19/16 22:16 Dose: 10 mg Cholecalciferol (Vitamin D3 -) 1,000 unit PO DAILY [facility] Last Admin: 12/19/16 09:34 Dose: 1,000 unit Cyanocobalamin (Vitamin B12 -) 1,000 mcg PO DAILY [facility] Last Admin: 12/19/16 09:34 Dose: 1,000 mcg Doxazosin Mesylate (Cardura -) 4 mg PO DAILY [facility] Last Admin: 12/19/16 09:35 Dose: 4 mg Gabapentin (Neurontin -) 100 mg PO DAILY [facility] Last Admin: 12/19/16 09:34 Dose: 100 mg Hydralazine HCl (Apresoline -) 50 mg PO DAILY [facility] Last Admin: 12/19/16 09:34 Dose: 50 mg Ertapenem 1 gm/ Sodium (Chloride) 50 mls @ 50 mls/hr IVPB DAILY [facility] PRN Reason: Protocol Last Admin: 06/02/17 09:42 Dose: 50 mls/hr Sodium Bicarbonate 150 meq/ (Dextrose) 1,150 mls @ 100 mls/hr IV Q11H [facility] Last Admin: 12/20/16 06:16 Dose: 100 mls/hr Insulin Aspart (Novolog Vial Sliding Scale -) 1 vial SQ ACHS [facility] PRN Reason: Protocol Last Admin: 12/20/16 06:15 Dose: 4 units Multivitamins/Minerals/Vitamin C (Tab-A-Vit -) 1 tab PO DAILY [facility] Last Admin: 12/19/16 09:34 Dose: 1 tab Non-Formulary Medication (Fluticasone/Salmeterol [Advair Hfa 115-21 Mcg Inhaler] ) 1 inh PO BID [facility] Ondansetron HCl (Zofran Injection) 4 mg IVPB Q6H PRN PRN Reason: NAUSEA Pantoprazole Sodium (Protonix -) 40 mg PO DAILY [facility] Last Admin: 12/19/16 09:34 Dose: 40 mg Sodium Bicarbonate (Sodium Bicarbonate -) 650 mg PO BID [facility] Last Admin: 12/19/16 22:16 Dose: 650 mg A/P 65 year old gentleman with PMhx of CKD stage 4 (baseline Cr ~2.3-2.8), Bladder Ca s/p cystectomy with cystostomy, CVA, Hypertension, HLD, DM who presented with Chills and found to have UTI and MEKA on CKD. #Acute Renal Failure likely etiology is volume depletion in setting of suspected UTI todays labs pending pt with good urine production #Non-anion gap metabolic acidosis with respiratory compensation secondary to Urinary Diversion causing chronic hypercloremic metabolic acidosis with worsening acidosis in setting of renal failure continue bicarb gtt and titrate based on todays labs urine anion gap is positive #UTI/Leukocytosis continue Abx as per primary/ID #Hx of Hypertension on Eb Forbes DO
[2016-12-20 08:21] LABS: CALCIUM 8.5 mg/dL (8.5-10.1); COCKROFT - GAULT 43.27; CREATININE 3.1 mg/dL (0.7-1.3); MAGNESIUM 2.5 mg/dL (1.8-2.4); PHOSPHOROUS 2.5 mg/dL (2.5-4.9)
[2016-12-20] MEDS ORDERED: PT OWN MED DRAWER 7, Y5N ONE (09:53)
--- NOTE | 2016-12-20 10:52 | PN ---
Progress Note, Physician History of Present Illness: stable improving wbc trending down still with some chills port removed - Current Medication List Current Medications: Active Medications Acetaminophen (Tylenol -) 650 mg PO Q6H PRN PRN Reason: FEVER OR PAIN Last Admin: 12/19/16 05:46 Dose: 650 mg Aspirin (Asa -) 81 mg PO DAILY [facility] Last Admin: 12/19/16 09:34 Dose: 81 mg Atorvastatin Calcium (Lipitor -) 10 mg PO HS [facility] Last Admin: 12/19/16 22:16 Dose: 10 mg Cholecalciferol (Vitamin D3 -) 1,000 unit PO DAILY [facility] Last Admin: 12/19/16 09:34 Dose: 1,000 unit Cyanocobalamin (Vitamin B12 -) 1,000 mcg PO DAILY [facility] Last Admin: 12/19/16 09:34 Dose: 1,000 mcg Doxazosin Mesylate (Cardura -) 4 mg PO DAILY [facility] Last Admin: 12/19/16 09:35 Dose: 4 mg Gabapentin (Neurontin -) 100 mg PO DAILY [facility] Last Admin: 12/19/16 09:34 Dose: 100 mg Hydralazine HCl (Apresoline -) 50 mg PO DAILY [facility] Last Admin: 12/19/16 09:34 Dose: 50 mg Ertapenem 1 gm/ Sodium (Chloride) 50 mls @ 50 mls/hr IVPB DAILY [facility] PRN Reason: Protocol Last Admin: 12/19/16 09:42 Dose: 50 mls/hr Sodium Bicarbonate 150 meq/ (Dextrose) 1,150 mls @ 100 mls/hr IV Q11H [facility] Last Admin: 12/20/16 06:16 Dose: 100 mls/hr Insulin Aspart (Novolog Vial Sliding Scale -) 1 vial SQ ACHS [facility] PRN Reason: Protocol Last Admin: 12/20/16 06:15 Dose: 4 units Multivitamins/Minerals/Vitamin C (Tab-A-Vit -) 1 tab PO DAILY [facility] Last Admin: 12/19/16 09:34 Dose: 1 tab Non-Formulary Medication (Fluticasone/Salmeterol [Advair Hfa 115-21 Mcg Inhaler] ) 1 inh PO BID [facility] Ondansetron HCl (Zofran Injection) 4 mg IVPB Q6H PRN PRN Reason: NAUSEA Pantoprazole Sodium (Protonix -) 40 mg PO DAILY [facility] Last Admin: 12/19/16 09:34 Dose: 40 mg Sodium Bicarbonate (Sodium Bicarbonate -) 650 mg PO BID [facility] Last Admin: 12/19/16 22:16 Dose: 650 mg - Objective Vital Signs: Vital Signs Temperature 100.8 F H 12/20/16 06:00 Pulse Rate 90 12/20/16 06:00 Respiratory Rate 20 12/20/16 06:00 Blood Pressure 150/77 12/20/16 06:00 O2 Sat by Pulse Oximetry (%) 96 12/19/16 21:00 Constitutional: Yes: No Distress, Calm, Obese Cardiovascular: Yes: Regular Rate and Rhythm Respiratory: Yes: Regular, CTA Bilaterally Gastrointestinal: Yes: Normal Bowel Sounds, Soft Musculoskeletal: Yes: WNL Extremities: Yes: WNL Neurological: Yes: Alert, Oriented Psychiatric: Yes: Alert Labs: CBC, BMP 12/20/16 06:30 12/20/16 06:30 INR, PTT INR 1.24 (0.82-1.09) H 12/17/16 23:30 Assessment/Plan Problems (1) Sepsis Code(s): A41.9 - SEPSIS, UNSPECIFIED ORGANISM (2) Metabolic acidosis Code(s): E87.2 - ACIDOSIS (3) Urinary tract infection Code(s): N39.0 - URINARY TRACT INFECTION, SITE NOT SPECIFIED Qualifiers: Indwelling urinary catheter type: cystostomy catheter Encounter type: initial encounter (4) ARF (acute renal failure) Code(s): N17.9 - ACUTE KIDNEY FAILURE, UNSPECIFIED Qualifiers: Acute renal failure type: unspecified Qualified Code(s): N17.9 - Acute kidney failure, unspecified (5) Diabetes Code(s): E11.9 - TYPE 2 DIABETES MELLITUS WITHOUT COMPLICATIONS Qualifiers: Diabetes mellitus type: type 2 Diabetes mellitus complication status: with kidney complications Diabetes mellitus complication detail: with chronic kidney disease Chronic kidney disease stage: stage 3 (moderate) (6) Hypertension Code(s): I10 - ESSENTIAL (PRIMARY) HYPERTENSION Qualifiers: Hypertension type: essential hypertension Qualified Code(s): I10 - Essential (primary) hypertension gm negative bacteremia plan continue iv abx blood cx ordered rest ct current mgmt await for identification of the bacteria and sensitivities
[2016-12-20] MEDS: MULTIVITAMINS (DAILY MVI) TABLET (FP) PO SCH (10:59)
[2016-12-20] MEDS: PANTOPRAZOLE 40 MG TABLET (FP) PO SCH (10:59)
[2016-12-20] MEDS: ASPIRIN 81 MG CHEWABLE TABLETS PO SCH (10:59)
[2016-12-20] MEDS: SODIUM BICARBONATE 650 MG TABLET PO SCH (10:59)
[2016-12-20] MEDS: DOXAZOSIN MESYLATE 4 MG TABLET PO SCH (10:59)
[2016-12-20] MEDS: CYANOCOBALAMIN 1,000 MCG TABLET (FP) PO SCH (10:59)
[2016-12-20] MEDS: CHOLECALCIFEROL (VITAMIN D3) 1,000 UNIT TABLET (FP) PO SCH (10:59)
[2016-12-20] MEDS: hydrALAZINE HCL 50 MG TABLET (FP) PO SCH (10:59)
[2016-12-20] MEDS: GABAPENTIN 100 MG CAPSULE (FP) PO SCH (10:59)
--- NOTE | 2016-12-20 11:09 | PN ---
Progress Note, Physician Chief Complaint: Mr Isaacs says he is doing much better. No cp, sob, n/v. States chills have resolved. - Current Medication List Current Medications: Active Medications Acetaminophen (Tylenol -) 650 mg PO Q6H PRN PRN Reason: FEVER OR PAIN Last Admin: 12/19/16 05:46 Dose: 650 mg Aspirin (Asa -) 81 mg PO DAILY [facility] Last Admin: 12/20/16 10:59 Dose: 81 mg Atorvastatin Calcium (Lipitor -) 10 mg PO HS [facility] Last Admin: 12/19/16 22:16 Dose: 10 mg Cholecalciferol (Vitamin D3 -) 1,000 unit PO DAILY [facility] Last Admin: 12/20/16 10:59 Dose: 1,000 unit Cyanocobalamin (Vitamin B12 -) 1,000 mcg PO DAILY [facility] Last Admin: 12/20/16 10:59 Dose: 1,000 mcg Doxazosin Mesylate (Cardura -) 4 mg PO DAILY [facility] Last Admin: 12/20/16 10:59 Dose: 4 mg Gabapentin (Neurontin -) 100 mg PO DAILY [facility] Last Admin: 12/20/16 10:59 Dose: 100 mg Hydralazine HCl (Apresoline -) 50 mg PO DAILY [facility] Last Admin: 12/20/16 10:59 Dose: 50 mg Ertapenem 1 gm/ Sodium (Chloride) 50 mls @ 50 mls/hr IVPB DAILY [facility] PRN Reason: Protocol Last Admin: 12/19/16 09:42 Dose: 50 mls/hr Sodium Bicarbonate 150 meq/ (Dextrose) 1,150 mls @ 100 mls/hr IV Q11H [facility] Last Admin: 12/20/16 06:16 Dose: 100 mls/hr Insulin Aspart (Novolog Vial Sliding Scale -) 1 vial SQ ACHS [facility] PRN Reason: Protocol Last Admin: 12/20/16 06:15 Dose: 4 units Multivitamins/Minerals/Vitamin C (Tab-A-Vit -) 1 tab PO DAILY [facility] Last Admin: 12/20/16 10:59 Dose: 1 tab Non-Formulary Medication (Fluticasone/Salmeterol [Advair Hfa 115-21 Mcg Inhaler] ) 1 inh PO BID [facility] Ondansetron HCl (Zofran Injection) 4 mg IVPB Q6H PRN PRN Reason: NAUSEA Pantoprazole Sodium (Protonix -) 40 mg PO DAILY [facility] Last Admin: 12/20/16 10:59 Dose: 40 mg Sodium Bicarbonate (Sodium Bicarbonate -) 650 mg PO BID [facility] Last Admin: 12/20/16 10:59 Dose: 650 mg - Objective Vital Signs: Vital Signs Temperature 100.8 F H 12/20/16 06:00 Pulse Rate 90 12/20/16 06:00 Respiratory Rate 20 12/20/16 06:00 Blood Pressure 150/77 12/20/16 06:00 O2 Sat by Pulse Oximetry (%) 96 12/19/16 21:00 Constitutional: Yes: No Distress, Calm, Obese Cardiovascular: Yes: Regular Rate and Rhythm. No: Gallop, Murmur, Rub Respiratory: Yes: Regular, CTA Bilaterally. No: Rales, Rhonchi, Wheezes Gastrointestinal: Yes: Normal Bowel Sounds, Soft. No: Distention, Tenderness Extremities: Yes: WNL Edema: No Labs: CBC, BMP 12/20/16 06:30 12/20/16 06:30 INR, PTT INR 1.24 (0.82-1.09) H 12/17/16 23:30 Problem List - Problems (1) Sepsis Code(s): A41.9 - SEPSIS, UNSPECIFIED ORGANISM (2) Metabolic acidosis Code(s): E87.2 - ACIDOSIS (3) Urinary tract infection Code(s): N39.0 - URINARY TRACT INFECTION, SITE NOT SPECIFIED Qualifiers: Indwelling urinary catheter type: cystostomy catheter Encounter type: initial encounter (4) ARF (acute renal failure) Code(s): N17.9 - ACUTE KIDNEY FAILURE, UNSPECIFIED Qualifiers: Acute renal failure type: unspecified Qualified Code(s): N17.9 - Acute kidney failure, unspecified (5) Diabetes Code(s): E11.9 - TYPE 2 DIABETES MELLITUS WITHOUT COMPLICATIONS Qualifiers: Diabetes mellitus type: type 2 Diabetes mellitus complication status: with kidney complications Diabetes mellitus complication detail: with chronic kidney disease Chronic kidney disease stage: stage 3 (moderate) (6) Hypertension Code(s): I10 - ESSENTIAL (PRIMARY) HYPERTENSION Qualifiers: Hypertension type: essential hypertension Qualified Code(s): I10 - Essential (primary) hypertension Assessment/Plan (1) Sepsis Assessment/Plan -continues to improve -await culture results -continue IVF and antibiotics Code(s): A41.9 - SEPSIS, UNSPECIFIED ORGANISM Qualifiers: Qualified Code(s): A41.51 - Sepsis due to Escherichia coli [E. coli] (2) Metabolic acidosis Assessment/Plan: -nephrology following -on bicarb gtt -improving Code(s): E87.2 - ACIDOSIS (3) Urinary tract infection Assessment/Plan: -follow up urine culture -continue ertapenem per ID -defer to Dr Baires if escalation is needed Code(s): N39.0 - URINARY TRACT INFECTION, SITE NOT SPECIFIED Qualifiers: Indwelling urinary catheter type: cystostomy catheter Encounter type: initial encounter (4) ARF (acute renal failure) Assessment/Plan: -with CKD -IVF per nephrology -slow improvement Code(s): N17.9 - ACUTE KIDNEY FAILURE, UNSPECIFIED Qualifiers: Acute renal failure type: unspecified Qualified Code(s): N17.9 - Acute kidney failure, unspecified (5) Diabetes Assessment/Plan: -with hyperglycemia secondary to IVF -continue SSI Code(s): E11.9 - TYPE 2 DIABETES MELLITUS WITHOUT COMPLICATIONS Qualifiers: Diabetes mellitus type: type 2 Diabetes mellitus complication status: with kidney complications Diabetes mellitus complication detail: with chronic kidney disease Chronic kidney disease stage: stage 3 (moderate) Qualified Code(s): E11.22 - Type 2 diabetes mellitus with diabetic chronic kidney disease; N18.1 - Chronic kidney disease, stage 1; Z79.4 - intermediate ( 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 of insulin (6) Hypertension Assessment/Plan: -continue cardura and hydralazine Code(s): I10 - ESSENTIAL (PRIMARY) HYPERTENSION Qualifiers: Hypertension type: essential hypertension Qualified Code(s): I10 - Essential (primary) hypertension
[2016-12-20] MEDS ORDERED: INSULIN (NOVOLOG) ASPART 100 UNITS/ML 10ML VIAL ONE (12:09)
[2016-12-20] MEDS: ERTAPENEM SODIUM 1 GM in SODIUM CHLORIDE 50 ML IVPB SCH (12:16)
[2016-12-20] MEDS: ATORVASTATIN CA 10 MG TABLET (FP) PO SCH (22:19)
[2016-12-21] MEDS: SODIUM BICARBONATE 650 MG TABLET PO SCH ×4 (01:36→21:48)
[2016-12-21] MEDS: SODIUM BICARBONATE 8.4% - 150 MEQ in DEXTROSE 5%-WATER - 1,000 ML IV SCH ×2 (06:10→10:51)
[2016-12-21] MEDS: INSULIN SLIDING SCALE (NOVOLOG) 1 VIAL SQ SCH ×4 (06:28→21:50)
--- NOTE | 2016-12-21 07:41 | PN ---
Progress Note (short form) - Note Progress Note: Renal follow up for MEKA on CKD and Metabolic acidosis Pt seen and examined at the bedside complains of mucus in his throat no sob, chest pain on bicarb gtt good urine output Vital Signs Temperature 99 F 12/21/16 06:00 Pulse Rate 81 12/21/16 06:00 Respiratory Rate 20 12/21/16 06:00 Blood Pressure 141/85 12/21/16 06:00 O2 Sat by Pulse Oximetry (%) 97 12/20/16 21:15 Intake & Output 12/18/16 12/19/16 12/20/16 12/21/16 23:59 23:59 23:59 23:59 Intake Total 860 1363 2450 1200 Output Total 800 1775 3050 450 Balance 60 -412 -600 750 Weight 291 lb 11.2 oz Gen: NAD, awake and alert CVS: RRR, No M/R Lungs: CTA, no rales Abd: soft NT/ND Ext: No edema, clubbing or cyanosis : Cystostomy on left LLQ CBC, BMP 12/20/16 06:30 12/20/16 06:30 Current M Laboratory Tests 12/20/16 06:30 Calcium 8.5 Phosphorus 2.5 D Magnesium 2.5 H edications Acetaminophen (Tylenol -) 650 mg PO Q6H PRN PRN Reason: FEVER OR PAIN Last Admin: 12/19/16 05:46 Dose: 650 mg Aspirin (Asa -) 81 mg PO DAILY [facility] Last Admin: 12/20/16 10:59 Dose: 81 mg Atorvastatin Calcium (Lipitor -) 10 mg PO HS [facility] Last Admin: 12/20/16 22:19 Dose: 10 mg Cholecalciferol (Vitamin D3 -) 1,000 unit PO DAILY [facility] Last Admin: 12/20/16 10:59 Dose: 1,000 unit Cyanocobalamin (Vitamin B12 -) 1,000 mcg PO DAILY [facility] Last Admin: 12/20/16 10:59 Dose: 1,000 mcg Doxazosin Mesylate (Cardura -) 4 mg PO DAILY [facility] Last Admin: 12/20/16 10:59 Dose: 4 mg Gabapentin (Neurontin -) 100 mg PO DAILY [facility] Last Admin: 12/20/16 10:59 Dose: 100 mg Hydralazine HCl (Apresoline -) 50 mg PO DAILY [facility] Last Admin: 12/20/16 10:59 Dose: 50 mg Ertapenem 1 gm/ Sodium (Chloride) 50 mls @ 50 mls/hr IVPB DAILY [facility] PRN Reason: Protocol Last Admin: 12/20/16 12:16 Dose: 50 mls/hr Sodium Bicarbonate 150 meq/ (Dextrose) 1,150 mls @ 100 mls/hr IV Q11H [facility] Last Admin: 12/21/16 06:10 Dose: Not Given Insulin Aspart (Novolog Vial Sliding Scale -) 1 vial SQ ACHS [facility] PRN Reason: Protocol Last Admin: 12/21/16 06:28 Dose: 8 units Multivitamins/Minerals/Vitamin C (Tab-A-Vit -) 1 tab PO DAILY [facility] Last Admin: 12/20/16 10:59 Dose: 1 tab Non-Formulary Medication (Fluticasone/Salmeterol [Advair Hfa 115-21 Mcg Inhaler] ) 1 inh PO BID [facility] Ondansetron HCl (Zofran Injection) 4 mg IVPB Q6H PRN PRN Reason: NAUSEA Pantoprazole Sodium (Protonix -) 40 mg PO DAILY [facility] Last Admin: 12/20/16 10:59 Dose: 40 mg Sodium Bicarbonate (Sodium Bicarbonate -) 650 mg PO BID [facility] Last Admin: 12/21/16 01:36 Dose: 650 mg A/P 65 year old gentleman with PMhx of CKD stage 4 (baseline Cr ~2.3-2.8), Bladder Ca s/p cystectomy with cystostomy, CVA, Hypertension, HLD, DM who presented with Chills and found to have UTI and MEKA on CKD. #Acute Renal Failure Renal function with gradual improvement can continue istonic IVF #Non-anion gap metabolic acidosis with respiratory compensation secondary to Urinary Diversion causing chronic hypercloremic metabolic acidosis with worsening acidosis in setting of renal failure continue bicarb gtt, if Bicarb > 15 on todays labs can if planed for D/C change bicarb gtt to oral bicarb at 650mg TID #UTI/Leukocytosis continue Abx as per primary/ID #Hx of Hypertension on Carura #Mucus/Throast Congestion start Mucomyst Jose Forbes DO
[2016-12-21 08:47] LABS: BASOPHIL 0.2 % (0-2.0); EOSINOPHIL 2.1 % (0-4.5); MCH 28.4 pg (25.7-33.7); MCHC 35.2 g/dl (32.0-35.9); MEAN CELL VOLUME 80.8 fl (80-96); NEUTROPHILS 77.9 % (42.8-82.8); PLATELET COUNT 205 K/MM3 (134-434); RDW 15.1 % (11.9-15.9)
[2016-12-21 08:55] LABS: CALCIUM 8.3 mg/dL (8.5-10.1); COCKROFT - GAULT 49.68; CREATININE 2.7 mg/dL (0.7-1.3); MAGNESIUM 2.5 mg/dL (1.8-2.4); PHOSPHOROUS 2.2 mg/dL (2.5-4.9)
[2016-12-21] MEDS ORDERED: PT OWN MED DRAWER 7, Y5N ONE (10:47)
[2016-12-21] MEDS: GABAPENTIN 100 MG CAPSULE (FP) PO SCH (11:09)
[2016-12-21] MEDS: PANTOPRAZOLE 40 MG TABLET (FP) PO SCH (11:09)
[2016-12-21] MEDS: ASPIRIN 81 MG CHEWABLE TABLETS PO SCH (11:10)
[2016-12-21] MEDS: CHOLECALCIFEROL (VITAMIN D3) 1,000 UNIT TABLET (FP) PO SCH (11:10)
[2016-12-21] MEDS: CYANOCOBALAMIN 1,000 MCG TABLET (FP) PO SCH (11:10)
[2016-12-21] MEDS: DOXAZOSIN MESYLATE 4 MG TABLET PO SCH (11:10)
[2016-12-21] MEDS: MULTIVITAMINS (DAILY MVI) TABLET (FP) PO SCH (11:10)
[2016-12-21] MEDS: hydrALAZINE HCL 50 MG TABLET (FP) PO SCH (11:10)
[2016-12-21] MEDS: ERTAPENEM SODIUM 1 GM in SODIUM CHLORIDE 50 ML IVPB SCH (11:13)
--- NOTE | 2016-12-21 12:06 | PN ---
Progress Note, Physician Chief Complaint: Mr Isaacs is without complaint and says he feels good. No cp, sob, n/v. - Current Medication List Current Medications: Active Medications Acetaminophen (Tylenol -) 650 mg PO Q6H PRN PRN Reason: FEVER OR PAIN Last Admin: 12/19/16 05:46 Dose: 650 mg Acetylcysteine (Mucomyst 20 Oral / Inh Use Only*) 5 mg NEB Q6H PRN PRN Reason: Congetion Aspirin (Asa -) 81 mg PO DAILY [facility] Last Admin: 12/21/16 11:10 Dose: 81 mg Atorvastatin Calcium (Lipitor -) 10 mg PO HS [facility] Last Admin: 12/20/16 22:19 Dose: 10 mg Cholecalciferol (Vitamin D3 -) 1,000 unit PO DAILY [facility] Last Admin: 12/21/16 11:10 Dose: 1,000 unit Cyanocobalamin (Vitamin B12 -) 1,000 mcg PO DAILY [facility] Last Admin: 12/21/16 11:10 Dose: 1,000 mcg Doxazosin Mesylate (Cardura -) 4 mg PO DAILY [facility] Last Admin: 12/21/16 11:10 Dose: 4 mg Gabapentin (Neurontin -) 100 mg PO DAILY [facility] Last Admin: 12/21/16 11:09 Dose: 100 mg Hydralazine HCl (Apresoline -) 50 mg PO DAILY [facility] Last Admin: 12/21/16 11:10 Dose: 50 mg Ertapenem 1 gm/ Sodium (Chloride) 50 mls @ 50 mls/hr IVPB DAILY [facility] PRN Reason: Protocol Last Admin: 12/21/16 11:13 Dose: 50 mls/hr Insulin Aspart (Novolog Vial Sliding Scale -) 1 vial SQ ACHS [facility] PRN Reason: Protocol Last Admin: 12/21/16 11:52 Dose: 8 units Insulin Detemir (Levemir Vial) 10 units SQ BID [facility] Multivitamins/Minerals/Vitamin C (Tab-A-Vit -) 1 tab PO DAILY [facility] Last Admin: 12/21/16 11:10 Dose: 1 tab Non-Formulary Medication (Fluticasone/Salmeterol [Advair Hfa 115-21 Mcg Inhaler] ) 1 inh PO BID [facility] Ondansetron HCl (Zofran Injection) 4 mg IVPB Q6H PRN PRN Reason: NAUSEA Pantoprazole Sodium (Protonix -) 40 mg PO DAILY [facility] Last Admin: 12/21/16 11:09 Dose: 40 mg Sodium Bicarbonate (Sodium Bicarbonate -) 650 mg PO TID [facility] - Objective Vital Signs: Vital Signs Temperature 99 F 12/21/16 06:00 Pulse Rate 80 12/21/16 10:00 Respiratory Rate 18 12/21/16 10:00 Blood Pressure 144/80 12/21/16 10:00 O2 Sat by Pulse Oximetry (%) 97 12/21/16 09:00 Constitutional: Yes: No Distress, Calm, Obese Cardiovascular: Yes: Regular Rate and Rhythm. No: Gallop, Murmur, Rub Respiratory: Yes: Regular, CTA Bilaterally. No: Rales, Rhonchi, Wheezes Gastrointestinal: Yes: Normal Bowel Sounds, Soft. No: Tenderness Extremities: Yes: WNL Edema: No Labs: CBC, BMP 12/21/16 06:30 12/21/16 06:30 INR, PTT INR 1.24 (0.82-1.09) H 12/17/16 23:30 Problem List - Problems (1) Sepsis Code(s): A41.9 - SEPSIS, UNSPECIFIED ORGANISM (2) Metabolic acidosis Code(s): E87.2 - ACIDOSIS (3) Urinary tract infection Code(s): N39.0 - URINARY TRACT INFECTION, SITE NOT SPECIFIED Qualifiers: Indwelling urinary catheter type: cystostomy catheter Encounter type: initial encounter (4) ARF (acute renal failure) Code(s): N17.9 - ACUTE KIDNEY FAILURE, UNSPECIFIED Qualifiers: Acute renal failure type: unspecified Qualified Code(s): N17.9 - Acute kidney failure, unspecified (5) Diabetes Code(s): E11.9 - TYPE 2 DIABETES MELLITUS WITHOUT COMPLICATIONS Qualifiers: Diabetes mellitus type: type 2 Diabetes mellitus complication status: with kidney complications Diabetes mellitus complication detail: with chronic kidney disease Chronic kidney disease stage: stage 3 (moderate) (6) Hypertension Code(s): I10 - ESSENTIAL (PRIMARY) HYPERTENSION Qualifiers: Hypertension type: essential hypertension Qualified Code(s): I10 - Essential (primary) hypertension Assessment/Plan (1) Sepsis Assessment/Plan -blood culture growing ESBL e. coli -continue ertapanem Code(s): A41.9 - SEPSIS, UNSPECIFIED ORGANISM Qualifiers: Qualified Code(s): A41.51 - Sepsis due to Escherichia coli [E. coli] (2) Metabolic acidosis Assessment/Plan: -at baseline -bicarb gtt discontinued -restarted oral bicarb Code(s): E87.2 - ACIDOSIS (3) Urinary tract infection Assessment/Plan: -urine culture growing esbl e.coli and providencii -continue ertapenem per ID Code(s): N39.0 - URINARY TRACT INFECTION, SITE NOT SPECIFIED Qualifiers: Indwelling urinary catheter type: cystostomy catheter Encounter type: initial encounter (4) ARF (acute renal failure) Assessment/Plan: -with CKD -IVF per nephrology -slow improvement Code(s): N17.9 - ACUTE KIDNEY FAILURE, UNSPECIFIED Qualifiers: Acute renal failure type: unspecified Qualified Code(s): N17.9 - Acute kidney failure, unspecified (5) Diabetes Assessment/Plan: -patient says runs high at home -on SSI at home per patient -start levemir 10 units bid Code(s): E11.9 - TYPE 2 DIABETES MELLITUS WITHOUT COMPLICATIONS Qualifiers: Diabetes mellitus type: type 2 Diabetes mellitus complication status: with kidney complications Diabetes mellitus complication detail: with chronic kidney disease Chronic kidney disease stage: stage 3 (moderate) Qualified Code(s): E11.22 - Type 2 diabetes mellitus with diabetic chronic kidney disease; N18.1 - Chronic kidney disease, stage 1; Z79.4 - director long term care ( 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 of insulin (6) Hypertension Assessment/Plan: -continue cardura and hydralazine Code(s): I10 - ESSENTIAL (PRIMARY) HYPERTENSION Qualifiers: Hypertension type: essential hypertension Qualified Code(s): I10 - Essential (primary) hypertension
[2016-12-21] MEDS ORDERED: ACETYLCYSTEINE 20% 200MG/ML 30 ML VIAL *FOR ORAL / INH USE ONLY NEB PRN (12:21)
--- NOTE | 2016-12-21 12:35 | PN ---
Progress Note, Physician History of Present Illness: stable still with some chills wbc normalized - Current Medication List Current Medications: Active Medications Acetaminophen (Tylenol -) 650 mg PO Q6H PRN PRN Reason: FEVER OR PAIN Last Admin: 12/19/16 05:46 Dose: 650 mg Acetylcysteine (Mucomyst 20 Oral / Inh Use Only*) 1,000 mg NEB Q6H PRN PRN Reason: Congestion Aspirin (Asa -) 81 mg PO DAILY [facility] Last Admin: 12/21/16 11:10 Dose: 81 mg Atorvastatin Calcium (Lipitor -) 10 mg PO HS [facility] Last Admin: 12/20/16 22:19 Dose: 10 mg Cholecalciferol (Vitamin D3 -) 1,000 unit PO DAILY [facility] Last Admin: 12/21/16 11:10 Dose: 1,000 unit Cyanocobalamin (Vitamin B12 -) 1,000 mcg PO DAILY [facility] Last Admin: 12/21/16 11:10 Dose: 1,000 mcg Doxazosin Mesylate (Cardura -) 4 mg PO DAILY [facility] Last Admin: 12/21/16 11:10 Dose: 4 mg Gabapentin (Neurontin -) 100 mg PO DAILY [facility] Last Admin: 12/21/16 11:09 Dose: 100 mg Hydralazine HCl (Apresoline -) 50 mg PO DAILY [facility] Last Admin: 12/21/16 11:10 Dose: 50 mg Ertapenem 1 gm/ Sodium (Chloride) 50 mls @ 50 mls/hr IVPB DAILY [facility] PRN Reason: Protocol Last Admin: 12/21/16 11:13 Dose: 50 mls/hr Insulin Aspart (Novolog Vial Sliding Scale -) 1 vial SQ ACHS [facility] PRN Reason: Protocol Last Admin: 12/21/16 11:52 Dose: 8 units Insulin Detemir (Levemir Vial) 10 units SQ BID [facility] Multivitamins/Minerals/Vitamin C (Tab-A-Vit -) 1 tab PO DAILY [facility] Last Admin: 12/21/16 11:10 Dose: 1 tab Non-Formulary Medication (Fluticasone/Salmeterol [Advair Hfa 115-21 Mcg Inhaler] ) 1 inh PO BID [facility] Ondansetron HCl (Zofran Injection) 4 mg IVPB Q6H PRN PRN Reason: NAUSEA Pantoprazole Sodium (Protonix -) 40 mg PO DAILY [facility] Last Admin: 12/21/16 11:09 Dose: 40 mg Sodium Bicarbonate (Sodium Bicarbonate -) 650 mg PO TID [facility] - Objective Vital Signs: Vital Signs Temperature 99 F 12/21/16 06:00 Pulse Rate 80 12/21/16 10:00 Respiratory Rate 18 12/21/16 10:00 Blood Pressure 144/80 12/21/16 10:00 O2 Sat by Pulse Oximetry (%) 97 12/21/16 09:00 Constitutional: Yes: No Distress, Calm, Obese, Other Cardiovascular: Yes: Regular Rate and Rhythm Respiratory: Yes: Regular, CTA Bilaterally Gastrointestinal: Yes: Normal Bowel Sounds, Soft, Other (urosotomy site is good) Musculoskeletal: Yes: WNL Extremities: Yes: WNL Neurological: Yes: Alert, Oriented Psychiatric: Yes: Alert, Oriented Labs: CBC, BMP 12/21/16 06:30 12/21/16 06:30 INR, PTT INR 1.24 (0.82-1.09) H 12/17/16 23:30 Assessment/Plan Problems (1) Sepsis Code(s): A41.9 - SEPSIS, UNSPECIFIED ORGANISM (2) Metabolic acidosis Code(s): E87.2 - ACIDOSIS (3) Urinary tract infection Code(s): N39.0 - URINARY TRACT INFECTION, SITE NOT SPECIFIED Qualifiers: Indwelling urinary catheter type: cystostomy catheter Encounter type: initial encounter (4) ARF (acute renal failure) Code(s): N17.9 - ACUTE KIDNEY FAILURE, UNSPECIFIED Qualifiers: Acute renal failure type: unspecified Qualified Code(s): N17.9 - Acute kidney failure, unspecified (5) Diabetes Code(s): E11.9 - TYPE 2 DIABETES MELLITUS WITHOUT COMPLICATIONS Qualifiers: Diabetes mellitus type: type 2 Diabetes mellitus complication status: with kidney complications Diabetes mellitus complication detail: with chronic kidney disease Chronic kidney disease stage: stage 3 (moderate) (6) Hypertension Code(s): I10 - ESSENTIAL (PRIMARY) HYPERTENSION Qualifiers: Hypertension type: essential hypertension Qualified Code(s): I10 - Essential (primary) hypertension gm negative bacteremia plan continue iv abx await repeat blood cx report rest ct current mgmt await for sensitivities
[2016-12-21] MEDS ORDERED: INSULIN (NOVOLOG) ASPART 100 UNITS/ML 10ML VIAL ONE (21:03)
[2016-12-21] MEDS: ATORVASTATIN CA 10 MG TABLET (FP) PO SCH (21:48)
[2016-12-21] MEDS: INSULIN DETEMIR 100 UNITS/ML MDV SQ SCH (21:48)
[2016-12-22] MEDS: INSULIN SLIDING SCALE (NOVOLOG) 1 VIAL SQ SCH ×4 (06:22→21:33)
[2016-12-22] MEDS: SODIUM BICARBONATE 650 MG TABLET PO SCH ×3 (06:22→21:32)
[2016-12-22 08:05] LABS: BASOPHIL 0.4 % (0-2.0); EOSINOPHIL 3.2 % (0-4.5); MCH 28.3 pg (25.7-33.7); MCHC 34.9 g/dl (32.0-35.9); MEAN CELL VOLUME 81.2 fl (80-96); MEAN PLT VOLUME 7.6 fl (7.5-11.1); NEUTROPHILS 71.5 % (42.8-82.8); PLATELET COUNT 219 K/MM3 (134-434); RDW 15.2 % (11.9-15.9); WHITE BLOOD COUNT 8.4 K/mm3 (4.0-10.0)
[2016-12-22 08:33] LABS: ALBUMIN 2.6 g/dl (3.4-5.0); BILIRUBIN,TOTAL 0.4 mg/dL (0.2-1.0); CALCIUM 8.4 mg/dL (8.5-10.1); COCKROFT - GAULT 50.88; CREATININE 2.6 mg/dL (0.7-1.3); MAGNESIUM 2.3 mg/dL (1.8-2.4); PHOSPHOROUS 2.8 mg/dL (2.5-4.9); TOT PROT 6.4 g/dl (6.4-8.2)
[2016-12-22] MEDS: PANTOPRAZOLE 40 MG TABLET (FP) PO SCH (09:36)
[2016-12-22] MEDS: CHOLECALCIFEROL (VITAMIN D3) 1,000 UNIT TABLET (FP) PO SCH (09:36)
[2016-12-22] MEDS: CYANOCOBALAMIN 1,000 MCG TABLET (FP) PO SCH (09:36)
[2016-12-22] MEDS: hydrALAZINE HCL 50 MG TABLET (FP) PO SCH (09:36)
[2016-12-22] MEDS: GABAPENTIN 100 MG CAPSULE (FP) PO SCH (09:36)
[2016-12-22] MEDS: MULTIVITAMINS (DAILY MVI) TABLET (FP) PO SCH (09:36)
[2016-12-22] MEDS: ASPIRIN 81 MG CHEWABLE TABLETS PO SCH (09:37)
[2016-12-22] MEDS: INSULIN DETEMIR 100 UNITS/ML MDV SQ SCH ×2 (09:42→21:31)
--- NOTE | 2016-12-22 10:51 | PN ---
Progress Note (short form) - Note Progress Note: Renal follow up for MEKA on CKD and Metabolic acidosis Pt seen and examined at the bedside has pain over his right shoulder where the old tunneled catheter was no fevers, + chills no sob, cough, N/V/D Vital Signs Temperature 98 F 12/22/16 09:45 Pulse Rate 78 12/22/16 09:45 Respiratory Rate 18 12/22/16 09:45 Blood Pressure 164/78 12/22/16 09:45 O2 Sat by Pulse Oximetry (%) 97 12/21/16 22:00 Intake & Output 12/19/16 12/20/16 12/21/16 12/22/16 23:59 23:59 23:59 23:59 Intake Total 1363 2450 2800 200 Output Total 1775 3050 1450 700 Balance -412 -600 1350 -500 Gen: NAD, awake and alert CVS: RRR, No M/R Lungs: CTA, no rales Abd: soft NT/ND Ext: No edema, clubbing or cyanosis : Cystostomy on left LLQ CBC, BMP 12/22/16 07:08 12/22/16 07:08 Laboratory Tests 12/22/16 07:08 Calcium 8.4 L Phosphorus 2.8 D Magnesium 2.3 Albumin 2.6 L Current Medications Acetaminophen (Tylenol -) 650 mg PO Q6H PRN PRN Reason: FEVER OR PAIN Last Admin: 12/19/16 05:46 Dose: 650 mg Acetylcysteine (Mucomyst 20 Oral / Inh Use Only*) 1,000 mg NEB Q6H PRN PRN Reason: Congestion Aspirin (Asa -) 81 mg PO DAILY [facility] Last Admin: 12/22/16 09:37 Dose: 81 mg Atorvastatin Calcium (Lipitor -) 10 mg PO HS [facility] Last Admin: 12/21/16 21:48 Dose: 10 mg Cholecalciferol (Vitamin D3 -) 1,000 unit PO DAILY [facility] Last Admin: 12/22/16 09:36 Dose: 1,000 unit Cyanocobalamin (Vitamin B12 -) 1,000 mcg PO DAILY [facility] Last Admin: 12/22/16 09:36 Dose: 1,000 mcg Doxazosin Mesylate (Cardura -) 4 mg PO DAILY [facility] Last Admin: 12/21/16 11:10 Dose: 4 mg Gabapentin (Neurontin -) 100 mg PO DAILY [facility] Last Admin: 12/22/16 09:36 Dose: 100 mg Hydralazine HCl (Apresoline -) 50 mg PO DAILY [facility] Last Admin: 12/22/16 09:36 Dose: 50 mg Ertapenem 1 gm/ Sodium (Chloride) 50 mls @ 50 mls/hr IVPB DAILY [facility] PRN Reason: Protocol Last Admin: 12/21/16 11:13 Dose: 50 mls/hr Insulin Aspart (Novolog Vial Sliding Scale -) 1 vial SQ ACHS [facility] PRN Reason: Protocol Last Admin: 12/22/16 06:22 Dose: 6 units Insulin Detemir (Levemir Vial) 10 units SQ BID [facility] Last Admin: 12/22/16 09:42 Dose: 10 units Multivitamins/Minerals/Vitamin C (Tab-A-Vit -) 1 tab PO DAILY [facility] Last Admin: 12/22/16 09:36 Dose: 1 tab Non-Formulary Medication (Fluticasone/Salmeterol [Advair Hfa 115-21 Mcg Inhaler] ) 1 inh PO BID [facility] Ondansetron HCl (Zofran Injection) 4 mg IVPB Q6H PRN PRN Reason: NAUSEA Pantoprazole Sodium (Protonix -) 40 mg PO DAILY [facility] Last Admin: 12/22/16 09:36 Dose: 40 mg Sodium Bicarbonate (Sodium Bicarbonate -) 650 mg PO TID [facility] Last Admin: 12/22/16 06:22 Dose: 650 mg A/P 65 year old gentleman with PMhx of CKD stage 4 (baseline Cr ~2.3-2.8), Bladder Ca s/p cystectomy with cystostomy, CVA, Hypertension, HLD, DM who presented with Chills and found to have UTI and MEKA on CKD. #Acute Renal Failure Renal function has now improved back to baseline #Non-anion gap metabolic acidosis serum bicarb levels improved continue oral sodium bicarb #UTI/Leukocytosis continue Abx as per primary/ID #Hx of Hypertension on Carura #Mucus/Throast Congestion start Mucomyst Neb #Right sided chest wall tenderness consider US imaging of chest if there is suspicion for hematoma/collection Freddie Forbes DO
[2016-12-22] MEDS ORDERED: INSULIN (NOVOLOG) ASPART 100 UNITS/ML 10ML VIAL ONE ×2 (11:18→16:50)
[2016-12-22] MEDS: ERTAPENEM SODIUM 1 GM in SODIUM CHLORIDE 50 ML IVPB SCH (11:47)
[2016-12-22] MEDS: DOXAZOSIN MESYLATE 4 MG TABLET PO SCH (12:36)
--- NOTE | 2016-12-22 15:24 | PN ---
Progress Note, Physician Chief Complaint: Mr Isaacs says he is doing well and is without complaint. No fevers, chills, cp , sob, n/v. - Current Medication List Current Medications: Active Medications Acetaminophen (Tylenol -) 650 mg PO Q6H PRN PRN Reason: FEVER OR PAIN Last Admin: 12/19/16 05:46 Dose: 650 mg Acetylcysteine (Mucomyst 20 Oral / Inh Use Only*) 1,000 mg NEB Q6H PRN PRN Reason: Congestion Aspirin (Asa -) 81 mg PO DAILY [facility] Last Admin: 12/22/16 09:37 Dose: 81 mg Atorvastatin Calcium (Lipitor -) 10 mg PO HS [facility] Last Admin: 12/21/16 21:48 Dose: 10 mg Cholecalciferol (Vitamin D3 -) 1,000 unit PO DAILY [facility] Last Admin: 12/22/16 09:36 Dose: 1,000 unit Cyanocobalamin (Vitamin B12 -) 1,000 mcg PO DAILY [facility] Last Admin: 12/22/16 09:36 Dose: 1,000 mcg Doxazosin Mesylate (Cardura -) 4 mg PO DAILY [facility] Last Admin: 12/22/16 12:36 Dose: 4 mg Gabapentin (Neurontin -) 100 mg PO DAILY [facility] Last Admin: 12/22/16 09:36 Dose: 100 mg Hydralazine HCl (Apresoline -) 50 mg PO DAILY [facility] Last Admin: 12/22/16 09:36 Dose: 50 mg Ertapenem 1 gm/ Sodium (Chloride) 50 mls @ 50 mls/hr IVPB DAILY [facility] PRN Reason: Protocol Last Admin: 12/22/16 11:47 Dose: 50 mls/hr Insulin Aspart (Novolog Vial Sliding Scale -) 1 vial SQ ACHS [facility] PRN Reason: Protocol Last Admin: 12/22/16 11:48 Dose: 8 units Multivitamins/Minerals/Vitamin C (Tab-A-Vit -) 1 tab PO DAILY [facility] Last Admin: 12/22/16 09:36 Dose: 1 tab Non-Formulary Medication (Fluticasone/Salmeterol [Advair Hfa 115-21 Mcg Inhaler] ) 1 inh PO BID [facility] Ondansetron HCl (Zofran Injection) 4 mg IVPB Q6H PRN PRN Reason: NAUSEA Pantoprazole Sodium (Protonix -) 40 mg PO DAILY [facility] Last Admin: 12/22/16 09:36 Dose: 40 mg Sodium Bicarbonate (Sodium Bicarbonate -) 650 mg PO TID [facility] Last Admin: 12/22/16 06:22 Dose: 650 mg - Objective Vital Signs: Vital Signs Temperature 98 F 12/22/16 09:45 Pulse Rate 78 12/22/16 09:45 Respiratory Rate 18 12/22/16 09:45 Blood Pressure 164/78 12/22/16 09:45 O2 Sat by Pulse Oximetry (%) 97 12/22/16 09:00 Constitutional: Yes: No Distress, Calm, Obese Cardiovascular: Yes: Regular Rate and Rhythm. No: Gallop, Murmur, Rub Respiratory: Yes: Regular, CTA Bilaterally. No: Rales, Rhonchi, Wheezes Gastrointestinal: Yes: Normal Bowel Sounds, Soft. No: Distention, Tenderness Extremities: Yes: WNL Edema: No Labs: CBC, BMP 12/22/16 07:08 12/22/16 07:08 INR, PTT INR 1.24 (0.82-1.09) H 12/17/16 23:30 Problem List - Problems (1) Sepsis Code(s): A41.9 - SEPSIS, UNSPECIFIED ORGANISM (2) Metabolic acidosis Code(s): E87.2 - ACIDOSIS (3) Urinary tract infection Code(s): N39.0 - URINARY TRACT INFECTION, SITE NOT SPECIFIED Qualifiers: Indwelling urinary catheter type: cystostomy catheter Encounter type: initial encounter (4) ARF (acute renal failure) Code(s): N17.9 - ACUTE KIDNEY FAILURE, UNSPECIFIED Qualifiers: Acute renal failure type: unspecified Qualified Code(s): N17.9 - Acute kidney failure, unspecified (5) Diabetes Code(s): E11.9 - TYPE 2 DIABETES MELLITUS WITHOUT COMPLICATIONS Qualifiers: Diabetes mellitus type: type 2 Diabetes mellitus complication status: with kidney complications Diabetes mellitus complication detail: with chronic kidney disease Chronic kidney disease stage: stage 3 (moderate) (6) Hypertension Code(s): I10 - ESSENTIAL (PRIMARY) HYPERTENSION Qualifiers: Hypertension type: essential hypertension Qualified Code(s): I10 - Essential (primary) hypertension Assessment/Plan (1) Sepsis Assessment/Plan -blood culture growing ESBL e. coli -continue ertapanem per ID Code(s): A41.9 - SEPSIS, UNSPECIFIED ORGANISM Qualifiers: Qualified Code(s): A41.51 - Sepsis due to Escherichia coli [E. coli] (2) Metabolic acidosis Assessment/Plan: -nephrology following -continue oral bicarb Code(s): E87.2 - ACIDOSIS (3) Urinary tract infection Assessment/Plan: -urine culture growing esbl e.coli and providencii -continue ertapenem per ID Code(s): N39.0 - URINARY TRACT INFECTION, SITE NOT SPECIFIED Qualifiers: Indwelling urinary catheter type: cystostomy catheter Encounter type: initial encounter (4) ARF (acute renal failure) Assessment/Plan: -with CKD -improved from admission -approaching baseline Code(s): N17.9 - ACUTE KIDNEY FAILURE, UNSPECIFIED Qualifiers: Acute renal failure type: unspecified Qualified Code(s): N17.9 - Acute kidney failure, unspecified (5) Diabetes Assessment/Plan: -patient says runs high at home -on SSI at home per patient -increase levemir to 15 units bid Code(s): E11.9 - TYPE 2 DIABETES MELLITUS WITHOUT COMPLICATIONS Qualifiers: Diabetes mellitus type: type 2 Diabetes mellitus complication status: with kidney complications Diabetes mellitus complication detail: with chronic kidney disease Chronic kidney disease stage: stage 3 (moderate) Qualified Code(s): E11.22 - Type 2 diabetes mellitus with diabetic chronic kidney disease; N18.1 - Chronic kidney disease, stage 1; Z79.4 - salvage determiner ( 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 of insulin (6) Hypertension Assessment/Plan: -continue cardura and hydralazine Code(s): I10 - ESSENTIAL (PRIMARY) HYPERTENSION Qualifiers: Hypertension type: essential hypertension Qualified Code(s): I10 - Essential (primary) hypertension
[2016-12-22] MEDS: ATORVASTATIN CA 10 MG TABLET (FP) PO SCH (21:32)
[2016-12-22] MEDS ORDERED: hydrALAZINE HCL 25 MG TABLET (FP) PO ONE (22:00)
[2016-12-23] MEDS: INSULIN DETEMIR 100 UNITS/ML MDV SQ SCH ×2 (06:24→22:16)
[2016-12-23] MEDS: SODIUM BICARBONATE 650 MG TABLET PO SCH ×3 (06:24→22:11)
[2016-12-23] MEDS: INSULIN SLIDING SCALE (NOVOLOG) 1 VIAL SQ SCH ×4 (06:25→22:13)
[2016-12-23 06:50] LABS: BASOPHIL 0.6 % (0-2.0); EOSINOPHIL 4.5 % (0-4.5); MCH 28.1 pg (25.7-33.7); MCHC 34.9 g/dl (32.0-35.9); MEAN CELL VOLUME 80.7 fl (80-96); MEAN PLT VOLUME 7.6 fl (7.5-11.1); PLATELET COUNT 233 K/MM3 (134-434); WHITE BLOOD COUNT 8.3 K/mm3 (4.0-10.0)
[2016-12-23 07:17] LABS: CALCIUM 8.7 mg/dL (8.5-10.1); COCKROFT - GAULT 57.52; CREATININE 2.3 mg/dL (0.7-1.3); MAGNESIUM 2.3 mg/dL (1.8-2.4); PHOSPHOROUS 3.3 mg/dL (2.5-4.9)
[2016-12-23] MEDS ORDERED: PT OWN MED DRAWER 7, Y5N ONE ×2 (10:06→13:35)
[2016-12-23] MEDS: ERTAPENEM SODIUM 1 GM in SODIUM CHLORIDE 50 ML IVPB SCH (10:20)
[2016-12-23] MEDS: CYANOCOBALAMIN 1,000 MCG TABLET (FP) PO SCH (10:21)
[2016-12-23] MEDS: MULTIVITAMINS (DAILY MVI) TABLET (FP) PO SCH (10:21)
[2016-12-23] MEDS: GABAPENTIN 100 MG CAPSULE (FP) PO SCH (10:21)
[2016-12-23] MEDS: DOXAZOSIN MESYLATE 4 MG TABLET PO SCH (10:21)
[2016-12-23] MEDS: CHOLECALCIFEROL (VITAMIN D3) 1,000 UNIT TABLET (FP) PO SCH (10:21)
[2016-12-23] MEDS: ASPIRIN 81 MG CHEWABLE TABLETS PO SCH (10:21)
[2016-12-23] MEDS: hydrALAZINE HCL 50 MG TABLET (FP) PO SCH (10:21)
[2016-12-23] MEDS: PANTOPRAZOLE 40 MG TABLET (FP) PO SCH (10:21)
--- NOTE | 2016-12-23 11:40 | PN ---
Progress Note, Physician History of Present Illness: doing well still has minor chills otherwise no new issues - Current Medication List Current Medications: Active Medications Acetaminophen (Tylenol -) 650 mg PO Q6H PRN PRN Reason: FEVER OR PAIN Last Admin: 12/19/16 05:46 Dose: 650 mg Acetylcysteine (Mucomyst 20 Oral / Inh Use Only*) 1,000 mg NEB Q6H PRN PRN Reason: Congestion Aspirin (Asa -) 81 mg PO DAILY [facility] Last Admin: 12/23/16 10:21 Dose: 81 mg Atorvastatin Calcium (Lipitor -) 10 mg PO HS [facility] Last Admin: 12/22/16 21:32 Dose: 10 mg Cholecalciferol (Vitamin D3 -) 1,000 unit PO DAILY [facility] Last Admin: 12/23/16 10:21 Dose: 1,000 unit Cyanocobalamin (Vitamin B12 -) 1,000 mcg PO DAILY [facility] Last Admin: 12/23/16 10:21 Dose: 1,000 mcg Doxazosin Mesylate (Cardura -) 4 mg PO DAILY [facility] Last Admin: 12/23/16 10:21 Dose: 4 mg Gabapentin (Neurontin -) 100 mg PO DAILY [facility] Last Admin: 12/23/16 10:21 Dose: 100 mg Hydralazine HCl (Apresoline -) 50 mg PO DAILY [facility] Last Admin: 12/23/16 10:21 Dose: 50 mg Ertapenem 1 gm/ Sodium (Chloride) 50 mls @ 50 mls/hr IVPB DAILY [facility] PRN Reason: Protocol Last Admin: 12/23/16 10:20 Dose: 50 mls/hr Insulin Aspart (Novolog Vial Sliding Scale -) 1 vial SQ ACHS [facility] PRN Reason: Protocol Last Admin: 12/23/16 06:25 Dose: 2 units Insulin Detemir (Levemir Vial) 15 units SQ BID@0700,2200 [facility] Last Admin: 12/23/16 06:24 Dose: 15 units Multivitamins/Minerals/Vitamin C (Tab-A-Vit -) 1 tab PO DAILY [facility] Last Admin: 12/23/16 10:21 Dose: 1 tab Non-Formulary Medication (Fluticasone/Salmeterol [Advair Hfa 115-21 Mcg Inhaler] ) 1 inh PO BID [facility] Ondansetron HCl (Zofran Injection) 4 mg IVPB Q6H PRN PRN Reason: NAUSEA Pantoprazole Sodium (Protonix -) 40 mg PO DAILY [facility] Last Admin: 12/23/16 10:21 Dose: 40 mg Sodium Bicarbonate (Sodium Bicarbonate -) 650 mg PO TID [facility] Last Admin: 12/23/16 06:24 Dose: 650 mg - Objective Vital Signs: Vital Signs Temperature 97.5 F L 12/23/16 11:12 Pulse Rate 80 12/23/16 10:19 Respiratory Rate 24 12/23/16 10:19 Blood Pressure 180/100 12/23/16 10:19 O2 Sat by Pulse Oximetry (%) 96 12/22/16 21:00 Constitutional: Yes: No Distress, Calm, Obese Cardiovascular: Yes: Regular Rate and Rhythm Respiratory: Yes: Regular, CTA Bilaterally Gastrointestinal: Yes: Normal Bowel Sounds, Soft, Other (urostomy) Musculoskeletal: Yes: WNL Extremities: Yes: WNL Neurological: Yes: Alert, Oriented Psychiatric: Yes: Alert, Oriented Labs: CBC, BMP 12/23/16 06:20 12/23/16 06:20 INR, PTT INR 1.24 (0.82-1.09) H 12/17/16 23:30 Assessment/Plan Problems (1) Sepsis Code(s): A41.9 - SEPSIS, UNSPECIFIED ORGANISM (2) Metabolic acidosis Code(s): E87.2 - ACIDOSIS (3) Urinary tract infection Code(s): N39.0 - URINARY TRACT INFECTION, SITE NOT SPECIFIED Qualifiers: Indwelling urinary catheter type: cystostomy catheter Encounter type: initial encounter (4) ARF (acute renal failure) Code(s): N17.9 - ACUTE KIDNEY FAILURE, UNSPECIFIED Qualifiers: Acute renal failure type: unspecified Qualified Code(s): N17.9 - Acute kidney failure, unspecified (5) Diabetes Code(s): E11.9 - TYPE 2 DIABETES MELLITUS WITHOUT COMPLICATIONS Qualifiers: Diabetes mellitus type: type 2 Diabetes mellitus complication status: with kidney complications Diabetes mellitus complication detail: with chronic kidney disease Chronic kidney disease stage: stage 3 (moderate) (6) Hypertension Code(s): I10 - ESSENTIAL (PRIMARY) HYPERTENSION Qualifiers: Hypertension type: essential hypertension Qualified Code(s): I10 - Essential (primary) hypertension gm negative bacteremia plan continue iv abx repeat blood cx negative abx will be needed for [address] current mgmt
--- NOTE | 2016-12-23 11:51 | PN ---
Progress Note (short form) - Note Progress Note: Renal follow up for MEKA on CKD and Metabolic acidosis Pt seen and examined at the bedside no acute complaints today continues to have some tenderness on his right shoulder under the dressing Vital Signs Temperature 97.5 F L 12/23/16 11:12 Pulse Rate 80 12/23/16 10:19 Respiratory Rate 24 12/23/16 10:19 Blood Pressure 180/100 12/23/16 10:19 O2 Sat by Pulse Oximetry (%) 96 12/22/16 21:00 Intake & Output 12/20/16 12/21/16 12/22/16 12/23/16 23:59 23:59 23:59 23:59 Intake Total 2450 2800 850 50 Output Total 3050 1450 2600 1000 Balance -600 1350 -1750 -950 Gen: NAD, awake and alert CVS: RRR, No M/R Lungs: CTA, no rales Abd: soft NT/ND Ext: No edema, clubbing or cyanosis : Cystostomy on left LLQ CBC, BMP 12/23/16 06:20 12/23/16 06:20 Current Medications Acetaminophen (Tylenol -) 650 mg PO Q6H PRN PRN Reason: FEVER OR PAIN Last Admin: 12/19/16 05:46 Dose: 650 mg Acetylcysteine (Mucomyst 20 Oral / Inh Use Only*) 1,000 mg NEB Q6H PRN PRN Reason: Congestion Aspirin (Asa -) 81 mg PO DAILY [facility] Last Admin: 12/23/16 10:21 Dose: 81 mg Atorvastatin Calcium (Lipitor -) 10 mg PO HS [facility] Last Admin: 12/22/16 21:32 Dose: 10 mg Cholecalciferol (Vitamin D3 -) 1,000 unit PO DAILY [facility] Last Admin: 12/23/16 10:21 Dose: 1,000 unit Cyanocobalamin (Vitamin B12 -) 1,000 mcg PO DAILY [facility] Last Admin: 12/23/16 10:21 Dose: 1,000 mcg Doxazosin Mesylate (Cardura -) 4 mg PO DAILY [facility] Last Admin: 12/23/16 10:21 Dose: 4 mg Gabapentin (Neurontin -) 100 mg PO DAILY [facility] Last Admin: 12/23/16 10:21 Dose: 100 mg Hydralazine HCl (Apresoline -) 50 mg PO DAILY [facility] Last Admin: 12/23/16 10:21 Dose: 50 mg Ertapenem 1 gm/ Sodium (Chloride) 50 mls @ 50 mls/hr IVPB DAILY [facility] PRN Reason: Protocol Last Admin: 12/23/16 10:20 Dose: 50 mls/hr Insulin Aspart (Novolog Vial Sliding Scale -) 1 vial SQ ACHS [facility] PRN Reason: Protocol Last Admin: 12/23/16 06:25 Dose: 2 units Insulin Detemir (Levemir Vial) 15 units SQ BID@0700,2200 [facility] Last Admin: 12/23/16 06:24 Dose: 15 units Multivitamins/Minerals/Vitamin C (Tab-A-Vit -) 1 tab PO DAILY [facility] Last Admin: 12/23/16 10:21 Dose: 1 tab Non-Formulary Medication (Fluticasone/Salmeterol [Advair Hfa 115-21 Mcg Inhaler] ) 1 inh PO BID [facility] Ondansetron HCl (Zofran Injection) 4 mg IVPB Q6H PRN PRN Reason: NAUSEA Pantoprazole Sodium (Protonix -) 40 mg PO DAILY [facility] Last Admin: 12/23/16 10:21 Dose: 40 mg Sodium Bicarbonate (Sodium Bicarbonate -) 650 mg PO TID [facility] Last Admin: 12/23/16 06:24 Dose: 650 mg A/P 65 year old gentleman with PMhx of CKD stage 4 (baseline Cr ~2.3-2.8), Bladder Ca s/p cystectomy with cystostomy, CVA, Hypertension, HLD, DM who presented with Chills and found to have UTI and MEKA on CKD. #Acute Renal Failure with Hx of CKD Renal function has now improved back to baseline #Non-anion gap metabolic acidosis serum bicarb levels at goal and stable on oral supplementation #UTI/Leukocytosis continue Abx as per primary/ID #Hx of Hypertension on Cardura #Right sided chest wall tenderness consider US imaging of chest if there is suspicion for hematoma/collection Freddie Forbes DO
--- NOTE | 2016-12-23 14:15 | PN ---
Progress Note, Physician Chief Complaint: Mr Isaacs says he is doing well and is without complaint. No fevers, chills, cp , sob, n/v. - Current Medication List Current Medications: Active Medications Acetaminophen (Tylenol -) 650 mg PO Q6H PRN PRN Reason: FEVER OR PAIN Last Admin: 12/19/16 05:46 Dose: 650 mg Acetylcysteine (Mucomyst 20 Oral / Inh Use Only*) 1,000 mg NEB Q6H PRN PRN Reason: Congestion Aspirin (Asa -) 81 mg PO DAILY [facility] Last Admin: 12/23/16 10:21 Dose: 81 mg Atorvastatin Calcium (Lipitor -) 10 mg PO HS [facility] Last Admin: 12/22/16 21:32 Dose: 10 mg Cholecalciferol (Vitamin D3 -) 1,000 unit PO DAILY [facility] Last Admin: 12/23/16 10:21 Dose: 1,000 unit Cyanocobalamin (Vitamin B12 -) 1,000 mcg PO DAILY [facility] Last Admin: 12/23/16 10:21 Dose: 1,000 mcg Doxazosin Mesylate (Cardura -) 4 mg PO DAILY [facility] Last Admin: 12/23/16 10:21 Dose: 4 mg Gabapentin (Neurontin -) 100 mg PO DAILY [facility] Last Admin: 12/23/16 10:21 Dose: 100 mg Hydralazine HCl (Apresoline -) 50 mg PO DAILY [facility] Last Admin: 12/23/16 10:21 Dose: 50 mg Ertapenem 1 gm/ Sodium (Chloride) 50 mls @ 50 mls/hr IVPB DAILY [facility] PRN Reason: Protocol Last Admin: 12/23/16 10:20 Dose: 50 mls/hr Insulin Aspart (Novolog Vial Sliding Scale -) 1 vial SQ ACHS [facility] PRN Reason: Protocol Last Admin: 12/23/16 12:20 Dose: 6 units Insulin Detemir (Levemir Vial) 15 units SQ BID@0700,2200 [facility] Last Admin: 12/23/16 06:24 Dose: 15 units Multivitamins/Minerals/Vitamin C (Tab-A-Vit -) 1 tab PO DAILY [facility] Last Admin: 12/23/16 10:21 Dose: 1 tab Non-Formulary Medication (Fluticasone/Salmeterol [Advair Hfa 115-21 Mcg Inhaler] ) 1 inh PO BID [facility] Ondansetron HCl (Zofran Injection) 4 mg IVPB Q6H PRN PRN Reason: NAUSEA Pantoprazole Sodium (Protonix -) 40 mg PO DAILY [facility] Last Admin: 12/23/16 10:21 Dose: 40 mg Sodium Bicarbonate (Sodium Bicarbonate -) 650 mg PO TID [facility] Last Admin: 12/23/16 06:24 Dose: 650 mg - Objective Vital Signs: Vital Signs Temperature 97.5 F L 12/23/16 11:12 Pulse Rate 79 12/23/16 12:50 Respiratory Rate 20 12/23/16 12:50 Blood Pressure 149/78 12/23/16 12:50 O2 Sat by Pulse Oximetry (%) 97 12/23/16 11:00 Constitutional: Yes: No Distress, Calm, Obese Cardiovascular: Yes: Regular Rate and Rhythm. No: Gallop, Murmur, Rub Respiratory: Yes: Regular, CTA Bilaterally. No: Rales, Rhonchi, Wheezes Gastrointestinal: Yes: Normal Bowel Sounds, Soft. No: Distention, Tenderness Extremities: Yes: WNL Edema: No Labs: CBC, BMP 12/23/16 06:20 12/23/16 06:20 INR, PTT INR 1.24 (0.82-1.09) H 12/17/16 23:30 Problem List - Problems (1) Sepsis Code(s): A41.9 - SEPSIS, UNSPECIFIED ORGANISM (2) Metabolic acidosis Code(s): E87.2 - ACIDOSIS (3) Urinary tract infection Code(s): N39.0 - URINARY TRACT INFECTION, SITE NOT SPECIFIED Qualifiers: Indwelling urinary catheter type: cystostomy catheter Encounter type: initial encounter (4) ARF (acute renal failure) Code(s): N17.9 - ACUTE KIDNEY FAILURE, UNSPECIFIED Qualifiers: Acute renal failure type: unspecified Qualified Code(s): N17.9 - Acute kidney failure, unspecified (5) Diabetes Code(s): E11.9 - TYPE 2 DIABETES MELLITUS WITHOUT COMPLICATIONS Qualifiers: Diabetes mellitus type: type 2 Diabetes mellitus complication status: with kidney complications Diabetes mellitus complication detail: with chronic kidney disease Chronic kidney disease stage: stage 3 (moderate) (6) Hypertension Code(s): I10 - ESSENTIAL (PRIMARY) HYPERTENSION Qualifiers: Hypertension type: essential hypertension Qualified Code(s): I10 - Essential (primary) hypertension Assessment/Plan (1) Sepsis Assessment/Plan -blood culture growing ESBL e. coli -continue ertapanem per ID Code(s): A41.9 - SEPSIS, UNSPECIFIED ORGANISM Qualifiers: Qualified Code(s): A41.51 - Sepsis due to Escherichia coli [E. coli] (2) Metabolic acidosis Assessment/Plan: -nephrology following -continue oral bicarb Code(s): E87.2 - ACIDOSIS (3) Urinary tract infection Assessment/Plan: -urine culture growing esbl e.coli and providencii -continue ertapenem per ID Code(s): N39.0 - URINARY TRACT INFECTION, SITE NOT SPECIFIED Qualifiers: Indwelling urinary catheter type: cystostomy catheter Encounter type: initial encounter (4) ARF (acute renal failure) Assessment/Plan: -with CKD -baseline Code(s): N17.9 - ACUTE KIDNEY FAILURE, UNSPECIFIED Qualifiers: Acute renal failure type: unspecified Qualified Code(s): N17.9 - Acute kidney failure, unspecified (5) Diabetes Assessment/Plan: -patient says runs high at home -on SSI at home per patient -increase levemir to 20 units bid Code(s): E11.9 - TYPE 2 DIABETES MELLITUS WITHOUT COMPLICATIONS Qualifiers: Diabetes mellitus type: type 2 Diabetes mellitus complication status: with kidney complications Diabetes mellitus complication detail: with chronic kidney disease Chronic kidney disease stage: stage 3 (moderate) Qualified Code(s): E11.22 - Type 2 diabetes mellitus with diabetic chronic kidney disease; N18.1 - Chronic kidney disease, stage 1; Z79.4 - USP ( 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 of insulin (6) Hypertension Assessment/Plan: -continue cardura and hydralazine Code(s): I10 - ESSENTIAL (PRIMARY) HYPERTENSION Qualifiers: Hypertension type: essential hypertension Qualified Code(s): I10 - Essential (primary) hypertension
--- NOTE | 2016-12-23 16:11 | PN ---
Progress Note, Physician History of Present Illness: doing well no new issues feeling well - Current Medication List Current Medications: Active Medications Acetaminophen (Tylenol -) 650 mg PO Q6H PRN PRN Reason: FEVER OR PAIN Last Admin: 12/19/16 05:46 Dose: 650 mg Acetylcysteine (Mucomyst 20 Oral / Inh Use Only*) 1,000 mg NEB Q6H PRN PRN Reason: Congestion Aspirin (Asa -) 81 mg PO DAILY [facility] Last Admin: 12/23/16 10:21 Dose: 81 mg Atorvastatin Calcium (Lipitor -) 10 mg PO HS [facility] Last Admin: 12/22/16 21:32 Dose: 10 mg Cholecalciferol (Vitamin D3 -) 1,000 unit PO DAILY [facility] Last Admin: 12/23/16 10:21 Dose: 1,000 unit Cyanocobalamin (Vitamin B12 -) 1,000 mcg PO DAILY [facility] Last Admin: 12/23/16 10:21 Dose: 1,000 mcg Doxazosin Mesylate (Cardura -) 4 mg PO DAILY [facility] Last Admin: 12/23/16 10:21 Dose: 4 mg Gabapentin (Neurontin -) 100 mg PO DAILY [facility] Last Admin: 12/23/16 10:21 Dose: 100 mg Hydralazine HCl (Apresoline -) 50 mg PO DAILY [facility] Last Admin: 12/23/16 10:21 Dose: 50 mg Ertapenem 1 gm/ Sodium (Chloride) 50 mls @ 50 mls/hr IVPB DAILY [facility] PRN Reason: Protocol Last Admin: 12/23/16 10:20 Dose: 50 mls/hr Insulin Aspart (Novolog Vial Sliding Scale -) 1 vial SQ ACHS [facility] PRN Reason: Protocol Last Admin: 12/23/16 12:20 Dose: 6 units Insulin Detemir (Levemir Vial) 20 units SQ BID@0700,2200 [facility] Multivitamins/Minerals/Vitamin C (Tab-A-Vit -) 1 tab PO DAILY [facility] Last Admin: 12/23/16 10:21 Dose: 1 tab Non-Formulary Medication (Fluticasone/Salmeterol [Advair Hfa 115-21 Mcg Inhaler] ) 1 inh PO BID [facility] Ondansetron HCl (Zofran Injection) 4 mg IVPB Q6H PRN PRN Reason: NAUSEA Pantoprazole Sodium (Protonix -) 40 mg PO DAILY [facility] Last Admin: 12/23/16 10:21 Dose: 40 mg Sodium Bicarbonate (Sodium Bicarbonate -) 650 mg PO TID [facility] Last Admin: 12/23/16 14:26 Dose: 650 mg - Objective Vital Signs: Vital Signs Temperature 97.5 F L 12/23/16 11:12 Pulse Rate 79 12/23/16 12:50 Respiratory Rate 20 12/23/16 12:50 Blood Pressure 149/78 12/23/16 12:50 O2 Sat by Pulse Oximetry (%) 97 12/23/16 11:00 Constitutional: Yes: No Distress, Calm Cardiovascular: Yes: Regular Rate and Rhythm Respiratory: Yes: Regular, CTA Bilaterally Gastrointestinal: Yes: Normal Bowel Sounds, Soft Genitourinary: Yes: Other Musculoskeletal: Yes: WNL Extremities: Yes: WNL Labs: CBC, BMP 12/23/16 06:20 12/23/16 06:20 INR, PTT INR 1.24 (0.82-1.09) H 12/17/16 23:30 Assessment/Plan Problems (1) Sepsis Code(s): A41.9 - SEPSIS, UNSPECIFIED ORGANISM (2) Metabolic acidosis Code(s): E87.2 - ACIDOSIS (3) Urinary tract infection Code(s): N39.0 - URINARY TRACT INFECTION, SITE NOT SPECIFIED Qualifiers: Indwelling urinary catheter type: cystostomy catheter Encounter type: initial encounter (4) ARF (acute renal failure) Code(s): N17.9 - ACUTE KIDNEY FAILURE, UNSPECIFIED Qualifiers: Acute renal failure type: unspecified Qualified Code(s): N17.9 - Acute kidney failure, unspecified (5) Diabetes Code(s): E11.9 - TYPE 2 DIABETES MELLITUS WITHOUT COMPLICATIONS Qualifiers: Diabetes mellitus type: type 2 Diabetes mellitus complication status: with kidney complications Diabetes mellitus complication detail: with chronic kidney disease Chronic kidney disease stage: stage 3 (moderate) (6) Hypertension Code(s): I10 - ESSENTIAL (PRIMARY) HYPERTENSION Qualifiers: Hypertension type: essential hypertension Qualified Code(s): I10 - Essential (primary) hypertension gm negative bacteremia plan continue iv abx continue current mgmt rest as per primary patient doing well
[2016-12-23] MEDS: ATORVASTATIN CA 10 MG TABLET (FP) PO SCH (22:11)
[2016-12-24] MEDS: INSULIN DETEMIR 100 UNITS/ML MDV SQ SCH ×2 (06:20→22:19)
[2016-12-24] MEDS: INSULIN SLIDING SCALE (NOVOLOG) 1 VIAL SQ SCH ×4 (06:20→22:19)
[2016-12-24] MEDS: SODIUM BICARBONATE 650 MG TABLET PO SCH ×3 (06:21→22:18)
[2016-12-24 08:10] LABS: BASOPHIL 0.5 % (0-2.0); MCH 28.1 pg (25.7-33.7); MCHC 34.4 g/dl (32.0-35.9); MEAN CELL VOLUME 81.9 fl (80-96); MEAN PLT VOLUME 7.9 fl (7.5-11.1); NEUTROPHILS 70.7 % (42.8-82.8); PLATELET COUNT 301 K/MM3 (134-434); RDW 15.3 % (11.9-15.9); WHITE BLOOD COUNT 8.1 K/mm3 (4.0-10.0)
[2016-12-24 08:48] LABS: COCKROFT - GAULT 57.52; CREATININE 2.3 mg/dL (0.7-1.3); MAGNESIUM 2.4 mg/dL (1.8-2.4); PHOSPHOROUS 3.3 mg/dL (2.5-4.9)
[2016-12-24] MEDS ORDERED: PT OWN MED DRAWER 7, Y5N ONE ×2 (09:55→11:32)
[2016-12-24] MEDS: MULTIVITAMINS (DAILY MVI) TABLET (FP) PO SCH (10:22)
[2016-12-24] MEDS: hydrALAZINE HCL 50 MG TABLET (FP) PO SCH (10:22)
[2016-12-24] MEDS: GABAPENTIN 100 MG CAPSULE (FP) PO SCH (10:22)
[2016-12-24] MEDS: ASPIRIN 81 MG CHEWABLE TABLETS PO SCH (10:22)
[2016-12-24] MEDS: PANTOPRAZOLE 40 MG TABLET (FP) PO SCH (10:23)
[2016-12-24] MEDS: ERTAPENEM SODIUM 1 GM in SODIUM CHLORIDE 50 ML IVPB SCH (10:23)
[2016-12-24] MEDS: CYANOCOBALAMIN 1,000 MCG TABLET (FP) PO SCH (10:23)
[2016-12-24] MEDS: CHOLECALCIFEROL (VITAMIN D3) 1,000 UNIT TABLET (FP) PO SCH (10:23)
[2016-12-24] MEDS ORDERED: ALBUTEROL SO4 0.083% IH SOL 2.5 MG/3 ML VIAL.NEB. NEB PRN (11:25)
--- NOTE | 2016-12-24 11:47 | PN ---
Progress Note, Physician Chief Complaint: Mr Isaacs is without complaint. Denies cp, sob, n/v. - Current Medication List Current Medications: Active Medications Acetaminophen (Tylenol -) 650 mg PO Q6H PRN PRN Reason: FEVER OR PAIN Last Admin: 12/19/16 05:46 Dose: 650 mg Acetylcysteine (Mucomyst 20 Oral / Inh Use Only*) 1,000 mg NEB Q6H PRN PRN Reason: Congestion Albuterol Sulfate (Ventolin 0.083% Nebulizer Soln -) 1 amp NEB Q6H PRN PRN Reason: SHORT OF BREATH/WHEEZING Aspirin (Asa -) 81 mg PO DAILY [facility] Last Admin: 12/24/16 10:22 Dose: 81 mg Atorvastatin Calcium (Lipitor -) 10 mg PO HS [facility] Last Admin: 12/23/16 22:11 Dose: 10 mg Cholecalciferol (Vitamin D3 -) 1,000 unit PO DAILY [facility] Last Admin: 12/24/16 10:23 Dose: 1,000 unit Cyanocobalamin (Vitamin B12 -) 1,000 mcg PO DAILY [facility] Last Admin: 12/24/16 10:23 Dose: 1,000 mcg Doxazosin Mesylate (Cardura -) 4 mg PO DAILY [facility] Last Admin: 12/23/16 10:21 Dose: 4 mg Gabapentin (Neurontin -) 100 mg PO DAILY [facility] Last Admin: 12/24/16 10:22 Dose: 100 mg Hydralazine HCl (Apresoline -) 50 mg PO DAILY [facility] Last Admin: 12/24/16 10:22 Dose: 50 mg Ertapenem 1 gm/ Sodium (Chloride) 50 mls @ 50 mls/hr IVPB DAILY [facility] PRN Reason: Protocol Last Admin: 12/24/16 10:23 Dose: 50 mls/hr Insulin Aspart (Novolog Vial Sliding Scale -) 1 vial SQ ACHS [facility] PRN Reason: Protocol Last Admin: 12/24/16 06:20 Dose: 6 units Insulin Detemir (Levemir Vial) 20 units SQ BID@0700,2200 [facility] Last Admin: 12/24/16 06:20 Dose: 20 units Multivitamins/Minerals/Vitamin C (Tab-A-Vit -) 1 tab PO DAILY [facility] Last Admin: 12/24/16 10:22 Dose: 1 tab Non-Formulary Medication (Fluticasone/Salmeterol [Advair Hfa 115-21 Mcg Inhaler] ) 1 inh PO BID [facility] Ondansetron HCl (Zofran Injection) 4 mg IVPB Q6H PRN PRN Reason: NAUSEA Pantoprazole Sodium (Protonix -) 40 mg PO DAILY [facility] Last Admin: 12/24/16 10:23 Dose: 40 mg Sodium Bicarbonate (Sodium Bicarbonate -) 650 mg PO TID [facility] Last Admin: 12/24/16 06:21 Dose: 650 mg - Objective Vital Signs: Vital Signs Temperature 99.0 F 12/24/16 06:00 Pulse Rate 77 12/24/16 06:00 Respiratory Rate 20 12/24/16 06:00 Blood Pressure 164/82 12/24/16 06:00 O2 Sat by Pulse Oximetry (%) 97 12/23/16 21:00 Constitutional: Yes: No Distress, Calm, Obese Cardiovascular: Yes: Regular Rate and Rhythm. No: Gallop, Murmur, Rub Respiratory: Yes: Regular, CTA Bilaterally. No: Rales, Rhonchi, Wheezes Gastrointestinal: Yes: Normal Bowel Sounds, Soft. No: Distention, Tenderness Extremities: Yes: WNL Edema: No Labs: CBC, BMP 12/24/16 07:00 12/24/16 07:00 INR, PTT INR 1.24 (0.82-1.09) H 12/17/16 23:30 Problem List - Problems (1) Sepsis Code(s): A41.9 - SEPSIS, UNSPECIFIED ORGANISM (2) Metabolic acidosis Code(s): E87.2 - ACIDOSIS (3) Urinary tract infection Code(s): N39.0 - URINARY TRACT INFECTION, SITE NOT SPECIFIED Qualifiers: Indwelling urinary catheter type: cystostomy catheter Encounter type: initial encounter (4) ARF (acute renal failure) Code(s): N17.9 - ACUTE KIDNEY FAILURE, UNSPECIFIED Qualifiers: Acute renal failure type: unspecified Qualified Code(s): N17.9 - Acute kidney failure, unspecified (5) Diabetes Code(s): E11.9 - TYPE 2 DIABETES MELLITUS WITHOUT COMPLICATIONS Qualifiers: Diabetes mellitus type: type 2 Diabetes mellitus complication status: with kidney complications Diabetes mellitus complication detail: with chronic kidney disease Chronic kidney disease stage: stage 3 (moderate) (6) Hypertension Code(s): I10 - ESSENTIAL (PRIMARY) HYPERTENSION Qualifiers: Hypertension type: essential hypertension Qualified Code(s): I10 - Essential (primary) hypertension Assessment/Plan (1) Sepsis Assessment/Plan -blood culture growing ESBL e. coli -continue ertapanem per ID Code(s): A41.9 - SEPSIS, UNSPECIFIED ORGANISM Qualifiers: Qualified Code(s): A41.51 - Sepsis due to Escherichia coli [E. coli] (2) Metabolic acidosis Assessment/Plan: -nephrology following -continue oral bicarb Code(s): E87.2 - ACIDOSIS (3) Urinary tract infection Assessment/Plan: -urine culture growing esbl e.coli and providencii -continue ertapenem per ID Code(s): N39.0 - URINARY TRACT INFECTION, SITE NOT SPECIFIED Qualifiers: Indwelling urinary catheter type: cystostomy catheter Encounter type: initial encounter (4) ARF (acute renal failure) Assessment/Plan: -with CKD -baseline Code(s): N17.9 - ACUTE KIDNEY FAILURE, UNSPECIFIED Qualifiers: Acute renal failure type: unspecified Qualified Code(s): N17.9 - Acute kidney failure, unspecified (5) Diabetes Assessment/Plan: -patient says runs high at home -on SSI at home per patient -continue levemir 20 units bid -if continues to be elevated, increase Code(s): E11.9 - TYPE 2 DIABETES MELLITUS WITHOUT COMPLICATIONS Qualifiers: Diabetes mellitus type: type 2 Diabetes mellitus complication status: with kidney complications Diabetes mellitus complication detail: with chronic kidney disease Chronic kidney disease stage: stage 3 (moderate) Qualified Code(s): E11.22 - Type 2 diabetes mellitus with diabetic chronic kidney disease; N18.1 - Chronic kidney disease, stage 1; Z79.4 - nursing home ( 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 of insulin (6) Hypertension Assessment/Plan: -continue cardura and hydralazine Code(s): I10 - ESSENTIAL (PRIMARY) HYPERTENSION Qualifiers: Hypertension type: essential hypertension Qualified Code(s): I10 - Essential (primary) hypertension Dispo -plan for discharge when safe to transition to oral antibiotics per ID
[2016-12-24] MEDS ORDERED: INSULIN (NOVOLOG) ASPART 100 UNITS/ML 10ML VIAL ONE ×2 (11:59→21:28)
--- NOTE | 2016-12-24 12:04 | PN ---
Progress Note (short form) - Note Progress Note: Renal follow up for MEKA on CKD and Metabolic acidosis Pt seen and examined at the bedside no acute complaints no fever, chills, CP, SOB, Abd pain Vital Signs Temperature 99.0 F 12/24/16 06:00 Pulse Rate 77 12/24/16 06:00 Respiratory Rate 20 12/24/16 06:00 Blood Pressure 164/82 12/24/16 06:00 O2 Sat by Pulse Oximetry (%) 97 12/23/16 21:00 Intake & Output 12/21/16 12/22/16 12/23/16 12/24/16 23:59 23:59 23:59 23:59 Intake Total 2800 850 50 400 Output Total 1450 2600 2800 1300 Balance 1350 -1750 -2750 -900 Gen: NAD, awake and alert CVS: RRR, No M/R Lungs: CTA, no rales Abd: soft NT/ND Ext: Trace to 1+ edema : Cystostomy on left LLQ CBC, BMP 12/24/16 07:00 12/24/16 07:00 Laboratory Tests 12/24/16 07:00 Calcium 9.0 Phosphorus 3.3 Magnesium 2.4 Current Medications Acetaminophen (Tylenol -) 650 mg PO Q6H PRN PRN Reason: FEVER OR PAIN Last Admin: 12/19/16 05:46 Dose: 650 mg Acetylcysteine (Mucomyst 20 Oral / Inh Use Only*) 1,000 mg NEB Q6H PRN PRN Reason: Congestion Albuterol Sulfate (Ventolin 0.083% Nebulizer Soln -) 1 amp NEB Q6H PRN PRN Reason: SHORT OF BREATH/WHEEZING Aspirin (Asa -) 81 mg PO DAILY [facility] Last Admin: 12/24/16 10:22 Dose: 81 mg Atorvastatin Calcium (Lipitor -) 10 mg PO HS [facility] Last Admin: 12/23/16 22:11 Dose: 10 mg Cholecalciferol (Vitamin D3 -) 1,000 unit PO DAILY [facility] Last Admin: 12/24/16 10:23 Dose: 1,000 unit Cyanocobalamin (Vitamin B12 -) 1,000 mcg PO DAILY [facility] Last Admin: 12/24/16 10:23 Dose: 1,000 mcg Doxazosin Mesylate (Cardura -) 4 mg PO DAILY [facility] Last Admin: 12/23/16 10:21 Dose: 4 mg Gabapentin (Neurontin -) 100 mg PO DAILY [facility] Last Admin: 12/24/16 10:22 Dose: 100 mg Hydralazine HCl (Apresoline -) 50 mg PO DAILY [facility] Last Admin: 12/24/16 10:22 Dose: 50 mg Ertapenem 1 gm/ Sodium (Chloride) 50 mls @ 50 mls/hr IVPB DAILY [facility] PRN Reason: Protocol Last Admin: 12/24/16 10:23 Dose: 50 mls/hr Insulin Aspart (Novolog Vial Sliding Scale -) 1 vial SQ ACHS [facility] PRN Reason: Protocol Last Admin: 12/24/16 06:20 Dose: 6 units Insulin Detemir (Levemir Vial) 20 units SQ BID@0700,2200 [facility] Last Admin: 12/24/16 06:20 Dose: 20 units Multivitamins/Minerals/Vitamin C (Tab-A-Vit -) 1 tab PO DAILY [facility] Last Admin: 12/24/16 10:22 Dose: 1 tab Non-Formulary Medication (Fluticasone/Salmeterol [Advair Hfa 115-21 Mcg Inhaler] ) 1 inh PO BID [facility] Ondansetron HCl (Zofran Injection) 4 mg IVPB Q6H PRN PRN Reason: NAUSEA Pantoprazole Sodium (Protonix -) 40 mg PO DAILY [facility] Last Admin: 12/24/16 10:23 Dose: 40 mg Sodium Bicarbonate (Sodium Bicarbonate -) 650 mg PO TID [facility] Last Admin: 12/24/16 06:21 Dose: 650 mg A/P 65 year old gentleman with PMhx of CKD stage 4 (baseline Cr ~2.3-2.8), Bladder Ca s/p cystectomy with cystostomy, CVA, Hypertension, HLD, DM who presented with Chills and found to have UTI and MEKA on CKD. #Acute Renal Failure with Hx of CKD Renal function stable pt now with development of LE edema, start Lasix 40mg BID (home dose) Trend BUN/Cr #Non-anion gap metabolic acidosis serum bicarb levels at goal and stable on oral supplementation #UTI/Leukocytosis continue Abx as per primary/ID #Hx of Hypertension on Christina Forbes DO
[2016-12-24] MEDS: DOXAZOSIN MESYLATE 4 MG TABLET PO SCH (12:18)
--- NOTE | 2016-12-24 15:30 | PN ---
Progress Note, Physician History of Present Illness: doing well no complaints no chills now - Current Medication List Current Medications: Active Medications Acetaminophen (Tylenol -) 650 mg PO Q6H PRN PRN Reason: FEVER OR PAIN Last Admin: 12/19/16 05:46 Dose: 650 mg Acetylcysteine (Mucomyst 20 Oral / Inh Use Only*) 1,000 mg NEB Q6H PRN PRN Reason: Congestion Albuterol Sulfate (Ventolin 0.083% Nebulizer Soln -) 1 amp NEB Q6H PRN PRN Reason: SHORT OF BREATH/WHEEZING Aspirin (Asa -) 81 mg PO DAILY [facility] Last Admin: 12/24/16 10:22 Dose: 81 mg Atorvastatin Calcium (Lipitor -) 10 mg PO HS [facility] Last Admin: 12/23/16 22:11 Dose: 10 mg Cholecalciferol (Vitamin D3 -) 1,000 unit PO DAILY [facility] Last Admin: 12/24/16 10:23 Dose: 1,000 unit Cyanocobalamin (Vitamin B12 -) 1,000 mcg PO DAILY [facility] Last Admin: 12/24/16 10:23 Dose: 1,000 mcg Doxazosin Mesylate (Cardura -) 4 mg PO DAILY [facility] Last Admin: 12/24/16 12:18 Dose: 4 mg Gabapentin (Neurontin -) 100 mg PO DAILY [facility] Last Admin: 12/24/16 10:22 Dose: 100 mg Hydralazine HCl (Apresoline -) 50 mg PO DAILY [facility] Last Admin: 12/24/16 10:22 Dose: 50 mg Ertapenem 1 gm/ Sodium (Chloride) 50 mls @ 50 mls/hr IVPB DAILY [facility] PRN Reason: Protocol Last Admin: 12/24/16 10:23 Dose: 50 mls/hr Insulin Aspart (Novolog Vial Sliding Scale -) 1 vial SQ ACHS [facility] PRN Reason: Protocol Last Admin: 12/24/16 12:13 Dose: 6 units Insulin Detemir (Levemir Vial) 20 units SQ BID@0700,2200 [facility] Last Admin: 12/24/16 06:20 Dose: 20 units Multivitamins/Minerals/Vitamin C (Tab-A-Vit -) 1 tab PO DAILY [facility] Last Admin: 12/24/16 10:22 Dose: 1 tab Non-Formulary Medication (Fluticasone/Salmeterol [Advair Hfa 115-21 Mcg Inhaler] ) 1 inh PO BID [facility] Ondansetron HCl (Zofran Injection) 4 mg IVPB Q6H PRN PRN Reason: NAUSEA Pantoprazole Sodium (Protonix -) 40 mg PO DAILY [facility] Last Admin: 12/24/16 10:23 Dose: 40 mg Sodium Bicarbonate (Sodium Bicarbonate -) 650 mg PO TID [facility] Last Admin: 12/24/16 14:36 Dose: 650 mg - Objective Vital Signs: Vital Signs Temperature 98.5 F 12/24/16 15:09 Pulse Rate 68 12/24/16 15:09 Respiratory Rate 18 12/24/16 15:09 Blood Pressure 153/91 12/24/16 15:09 O2 Sat by Pulse Oximetry (%) 98 12/24/16 09:00 Constitutional: Yes: No Distress, Calm, Obese Cardiovascular: Yes: Regular Rate and Rhythm Respiratory: Yes: Regular, CTA Bilaterally Gastrointestinal: Yes: Normal Bowel Sounds, Soft, Other (urostomy) Musculoskeletal: Yes: WNL Extremities: Yes: WNL Wound/Incision: Yes: Clean/Dry Neurological: Yes: Alert, Oriented Psychiatric: Yes: Alert, Oriented Labs: CBC, BMP 12/24/16 07:00 12/24/16 07:00 INR, PTT INR 1.24 (0.82-1.09) H 12/17/16 23:30 Assessment/Plan Problems (1) Sepsis Code(s): A41.9 - SEPSIS, UNSPECIFIED ORGANISM (2) Metabolic acidosis Code(s): E87.2 - ACIDOSIS (3) Urinary tract infection Code(s): N39.0 - URINARY TRACT INFECTION, SITE NOT SPECIFIED Qualifiers: Indwelling urinary catheter type: cystostomy catheter Encounter type: initial encounter (4) ARF (acute renal failure) Code(s): N17.9 - ACUTE KIDNEY FAILURE, UNSPECIFIED Qualifiers: Acute renal failure type: unspecified Qualified Code(s): N17.9 - Acute kidney failure, unspecified (5) Diabetes Code(s): E11.9 - TYPE 2 DIABETES MELLITUS WITHOUT COMPLICATIONS Qualifiers: Diabetes mellitus type: type 2 Diabetes mellitus complication status: with kidney complications Diabetes mellitus complication detail: with chronic kidney disease Chronic kidney disease stage: stage 3 (moderate) (6) Hypertension Code(s): I10 - ESSENTIAL (PRIMARY) HYPERTENSION Qualifiers: Hypertension type: essential hypertension Qualified Code(s): I10 - Essential (primary) hypertension gm negative bacteremia plan continue iv abx continue current mgmt rest as per primary patient doing well
[2016-12-24] MEDS: ATORVASTATIN CA 10 MG TABLET (FP) PO SCH (22:19)
[2016-12-25] MEDS ORDERED: INSULIN (NOVOLOG) ASPART 100 UNITS/ML 10ML VIAL ONE (05:37)
[2016-12-25] MEDS: SODIUM BICARBONATE 650 MG TABLET PO SCH ×3 (05:54→22:16)
[2016-12-25] MEDS: INSULIN DETEMIR 100 UNITS/ML MDV SQ SCH ×2 (06:15→22:16)
[2016-12-25] MEDS: INSULIN SLIDING SCALE (NOVOLOG) 1 VIAL SQ SCH ×4 (06:16→22:15)
[2016-12-25 07:30] LABS: MCHC 33.8 g/dl (32.0-35.9); MEAN CELL VOLUME 82.9 fl (80-96); MEAN PLT VOLUME 7.8 fl (7.5-11.1); PLATELET COUNT 327 K/MM3 (134-434); RDW 15.4 % (11.9-15.9); WHITE BLOOD COUNT 8.7 K/mm3 (4.0-10.0)
[2016-12-25 07:55] LABS: CALCIUM 9.2 mg/dL (8.5-10.1); COCKROFT - GAULT 55.13; CREATININE 2.4 mg/dL (0.7-1.3); MAGNESIUM 2.3 mg/dL (1.8-2.4); PHOSPHOROUS 3.7 mg/dL (2.5-4.9)
[2016-12-25 09:41] LABS: PLATELET ESTIMATE ADEQUATE (NORMAL)
[2016-12-25] MEDS: ERTAPENEM SODIUM 1 GM in SODIUM CHLORIDE 50 ML IVPB SCH (10:18)
[2016-12-25] MEDS: GABAPENTIN 100 MG CAPSULE (FP) PO SCH (10:19)
[2016-12-25] MEDS: MULTIVITAMINS (DAILY MVI) TABLET (FP) PO SCH (10:19)
[2016-12-25] MEDS: PANTOPRAZOLE 40 MG TABLET (FP) PO SCH (10:19)
[2016-12-25] MEDS: CYANOCOBALAMIN 1,000 MCG TABLET (FP) PO SCH (10:19)
[2016-12-25] MEDS: CHOLECALCIFEROL (VITAMIN D3) 1,000 UNIT TABLET (FP) PO SCH (10:19)
[2016-12-25] MEDS: ASPIRIN 81 MG CHEWABLE TABLETS PO SCH (10:20)
[2016-12-25] MEDS: hydrALAZINE HCL 50 MG TABLET (FP) PO SCH (10:20)
[2016-12-25] MEDS: DOXAZOSIN MESYLATE 4 MG TABLET PO SCH (10:21)
--- NOTE | 2016-12-25 10:26 | PN ---
Progress Note, Physician Chief Complaint: Mr Isaacs is without complaint. Denies cp, sob, n/v. - Current Medication List Current Medications: Active Medications Acetaminophen (Tylenol -) 650 mg PO Q6H PRN PRN Reason: FEVER OR PAIN Last Admin: 12/19/16 05:46 Dose: 650 mg Acetylcysteine (Mucomyst 20 Oral / Inh Use Only*) 1,000 mg NEB Q6H PRN PRN Reason: Congestion Albuterol Sulfate (Ventolin 0.083% Nebulizer Soln -) 1 amp NEB Q6H PRN PRN Reason: SHORT OF BREATH/WHEEZING Aspirin (Asa -) 81 mg PO DAILY [facility] Last Admin: 12/24/16 10:22 Dose: 81 mg Atorvastatin Calcium (Lipitor -) 10 mg PO HS [facility] Last Admin: 12/24/16 22:19 Dose: 10 mg Cholecalciferol (Vitamin D3 -) 1,000 unit PO DAILY [facility] Last Admin: 12/24/16 10:23 Dose: 1,000 unit Cyanocobalamin (Vitamin B12 -) 1,000 mcg PO DAILY [facility] Last Admin: 12/24/16 10:23 Dose: 1,000 mcg Doxazosin Mesylate (Cardura -) 4 mg PO DAILY [facility] Last Admin: 12/24/16 12:18 Dose: 4 mg Gabapentin (Neurontin -) 100 mg PO DAILY [facility] Last Admin: 12/24/16 10:22 Dose: 100 mg Hydralazine HCl (Apresoline -) 50 mg PO DAILY [facility] Last Admin: 12/24/16 10:22 Dose: 50 mg Insulin Aspart (Novolog Vial Sliding Scale -) 1 vial SQ ACHS [facility] PRN Reason: Protocol Last Admin: 12/25/16 06:16 Dose: Not Given Insulin Detemir (Levemir Vial) 20 units SQ BID@0700,2200 [facility] Last Admin: 12/25/16 06:15 Dose: 20 units Multivitamins/Minerals/Vitamin C (Tab-A-Vit -) 1 tab PO DAILY [facility] Last Admin: 12/24/16 10:22 Dose: 1 tab Non-Formulary Medication (Fluticasone/Salmeterol [Advair Hfa 115-21 Mcg Inhaler] ) 1 inh PO BID [facility] Ondansetron HCl (Zofran Injection) 4 mg IVPB Q6H PRN PRN Reason: NAUSEA Pantoprazole Sodium (Protonix -) 40 mg PO DAILY [facility] Last Admin: 12/24/16 10:23 Dose: 40 mg Sodium Bicarbonate (Sodium Bicarbonate -) 650 mg PO TID [facility] Last Admin: 12/25/16 05:54 Dose: 650 mg - Objective Vital Signs: Vital Signs Temperature 98.3 F 12/25/16 06:48 Pulse Rate 77 12/25/16 06:48 Respiratory Rate 20 12/25/16 06:48 Blood Pressure 132/62 12/25/16 06:48 O2 Sat by Pulse Oximetry (%) 100 12/24/16 21:00 Constitutional: Yes: No Distress, Calm, Obese Cardiovascular: Yes: Regular Rate and Rhythm. No: Gallop, Murmur, Rub Respiratory: Yes: Regular, CTA Bilaterally. No: Rales, Rhonchi, Wheezes Gastrointestinal: Yes: Normal Bowel Sounds, Soft. No: Distention, Tenderness Extremities: Yes: WNL Edema: No Labs: CBC, BMP 12/25/16 06:45 12/25/16 06:45 INR, PTT INR 1.24 (0.82-1.09) H 12/17/16 23:30 Problem List - Problems (1) Sepsis Code(s): A41.9 - SEPSIS, UNSPECIFIED ORGANISM (2) Metabolic acidosis Code(s): E87.2 - ACIDOSIS (3) Urinary tract infection Code(s): N39.0 - URINARY TRACT INFECTION, SITE NOT SPECIFIED Qualifiers: Indwelling urinary catheter type: cystostomy catheter Encounter type: initial encounter (4) ARF (acute renal failure) Code(s): N17.9 - ACUTE KIDNEY FAILURE, UNSPECIFIED Qualifiers: Acute renal failure type: unspecified Qualified Code(s): N17.9 - Acute kidney failure, unspecified (5) Diabetes Code(s): E11.9 - TYPE 2 DIABETES MELLITUS WITHOUT COMPLICATIONS Qualifiers: Diabetes mellitus type: type 2 Diabetes mellitus complication status: with kidney complications Diabetes mellitus complication detail: with chronic kidney disease Chronic kidney disease stage: stage 3 (moderate) (6) Hypertension Code(s): I10 - ESSENTIAL (PRIMARY) HYPERTENSION Qualifiers: Hypertension type: essential hypertension Qualified Code(s): I10 - Essential (primary) hypertension Assessment/Plan (1) Sepsis Assessment/Plan -repeat blood cultures negative -resolved Code(s): A41.9 - SEPSIS, UNSPECIFIED ORGANISM Qualifiers: Qualified Code(s): A41.51 - Sepsis due to Escherichia coli [E. coli] (2) Metabolic acidosis Assessment/Plan: -nephrology following -continue oral bicarb -at baseline Code(s): E87.2 - ACIDOSIS (3) Urinary tract infection Assessment/Plan: -urine culture growing esbl e.coli and providencii -continue ertapenem per ID -discharge when ID feels safe to transition to oral medications Code(s): N39.0 - URINARY TRACT INFECTION, SITE NOT SPECIFIED Qualifiers: Indwelling urinary catheter type: cystostomy catheter Encounter type: initial encounter (4) ARF (acute renal failure) Assessment/Plan: -with CKD -baseline Code(s): N17.9 - ACUTE KIDNEY FAILURE, UNSPECIFIED Qualifiers: Acute renal failure type: unspecified Qualified Code(s): N17.9 - Acute kidney failure, unspecified (5) Diabetes Assessment/Plan: -improved control on levemir 20 units bid -monitor Code(s): E11.9 - TYPE 2 DIABETES MELLITUS WITHOUT COMPLICATIONS Qualifiers: Diabetes mellitus type: type 2 Diabetes mellitus complication status: with kidney complications Diabetes mellitus complication detail: with chronic kidney disease Chronic kidney disease stage: stage 3 (moderate) Qualified Code(s): E11.22 - Type 2 diabetes mellitus with diabetic chronic kidney disease; N18.1 - Chronic kidney disease, stage 1; Z79.4 - [facility] ( 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 of insulin (6) Hypertension Assessment/Plan: -continue cardura and hydralazine Code(s): I10 - ESSENTIAL (PRIMARY) HYPERTENSION Qualifiers: Hypertension type: essential hypertension Qualified Code(s): I10 - Essential (primary) hypertension Dispo -plan for discharge when safe to transition to oral antibiotics per ID
--- NOTE | 2016-12-25 14:14 | PN ---
Progress Note (short form) - Note Progress Note: Renal follow up for MEKA on CKD and Metabolic acidosis Pt seen and examined at the bedside no acute complaints Vital Signs Temperature 98.4 F 12/25/16 10:00 Pulse Rate 77 12/25/16 10:00 Respiratory Rate 18 12/25/16 10:00 Blood Pressure 159/103 12/25/16 10:00 O2 Sat by Pulse Oximetry (%) 100 12/24/16 21:00 Intake & Output 12/22/16 12/23/16 12/24/16 12/25/16 23:59 23:59 23:59 23:59 Intake Total 294 56 3273 400 Output Total 2600 2800 3500 450 Balance -1750 -2750 -2300 -50 Gen: NAD, awake and alert CVS: RRR, No M/R Lungs: CTA, no rales Abd: soft NT/ND Ext: Trace to 1+ edema : Cystostomy on left LLQ CBC, BMP 12/25/16 06:45 12/25/16 06:45 Laboratory Tests 12/25/16 06:45 Calcium 9.2 Phosphorus 3.7 Magnesium 2.3 Current Medications Acetaminophen (Tylenol -) 650 mg PO Q6H PRN PRN Reason: FEVER OR PAIN Last Admin: 12/19/16 05:46 Dose: 650 mg Acetylcysteine (Mucomyst 20 Oral / Inh Use Only*) 1,000 mg NEB Q6H PRN PRN Reason: Congestion Albuterol Sulfate (Ventolin 0.083% Nebulizer Soln -) 1 amp NEB Q6H PRN PRN Reason: SHORT OF BREATH/WHEEZING Aspirin (Asa -) 81 mg PO DAILY [facility] Last Admin: 12/25/16 10:20 Dose: 81 mg Atorvastatin Calcium (Lipitor -) 10 mg PO HS [facility] Last Admin: 12/24/16 22:19 Dose: 10 mg Cholecalciferol (Vitamin D3 -) 1,000 unit PO DAILY [facility] Last Admin: 12/25/16 10:19 Dose: 1,000 unit Cyanocobalamin (Vitamin B12 -) 1,000 mcg PO DAILY [facility] Last Admin: 12/25/16 10:19 Dose: 1,000 mcg Doxazosin Mesylate (Cardura -) 4 mg PO DAILY [facility] Last Admin: 12/25/16 10:21 Dose: 4 mg Gabapentin (Neurontin -) 100 mg PO DAILY [facility] Last Admin: 12/25/16 10:19 Dose: 100 mg Hydralazine HCl (Apresoline -) 50 mg PO DAILY [facility] Last Admin: 12/25/16 10:20 Dose: 50 mg Ertapenem 1 gm/ Sodium (Chloride) 50 mls @ 50 mls/hr IVPB DAILY [facility] PRN Reason: Protocol Insulin Aspart (Novolog Vial Sliding Scale -) 1 vial SQ ACHS [facility] PRN Reason: Protocol Last Admin: 12/25/16 12:20 Dose: 4 units Insulin Detemir (Levemir Vial) 20 units SQ BID@0700,2200 [facility] Last Admin: 12/25/16 06:15 Dose: 20 units Multivitamins/Minerals/Vitamin C (Tab-A-Vit -) 1 tab PO DAILY [facility] Last Admin: 12/25/16 10:19 Dose: 1 tab Non-Formulary Medication (Fluticasone/Salmeterol [Advair Hfa 115-21 Mcg Inhaler] ) 1 inh PO BID [facility] Ondansetron HCl (Zofran Injection) 4 mg IVPB Q6H PRN PRN Reason: NAUSEA Pantoprazole Sodium (Protonix -) 40 mg PO DAILY [facility] Last Admin: 12/25/16 10:19 Dose: 40 mg Sodium Bicarbonate (Sodium Bicarbonate -) 650 mg PO TID [facility] Last Admin: 12/25/16 14:03 Dose: 650 mg A/P 65 year old gentleman with PMhx of CKD stage 4 (baseline Cr ~2.3-2.8), Bladder Ca s/p cystectomy with cystostomy, CVA, Hypertension, HLD, DM who presented with Chills and found to have UTI and MEKA on CKD. #Acute Renal Failure with Hx of CKD Renal function stable continue lasix PO 40mg BID trend BUN/Cr #Non-anion gap metabolic acidosis continue oral bicab trend serum bicarb daily #UTI/Leukocytosis continue Abx as per primary/ID #Hx of Hypertension on Christina Forbes DO
--- NOTE | 2016-12-25 14:30 | PN ---
Progress Note, Physician History of Present Illness: doing well no complaints - Current Medication List Current Medications: Active Medications Acetaminophen (Tylenol -) 650 mg PO Q6H PRN PRN Reason: FEVER OR PAIN Last Admin: 12/19/16 05:46 Dose: 650 mg Acetylcysteine (Mucomyst 20 Oral / Inh Use Only*) 1,000 mg NEB Q6H PRN PRN Reason: Congestion Albuterol Sulfate (Ventolin 0.083% Nebulizer Soln -) 1 amp NEB Q6H PRN PRN Reason: SHORT OF BREATH/WHEEZING Aspirin (Asa -) 81 mg PO DAILY [facility] Last Admin: 12/25/16 10:20 Dose: 81 mg Atorvastatin Calcium (Lipitor -) 10 mg PO HS [facility] Last Admin: 12/24/16 22:19 Dose: 10 mg Cholecalciferol (Vitamin D3 -) 1,000 unit PO DAILY [facility] Last Admin: 12/25/16 10:19 Dose: 1,000 unit Cyanocobalamin (Vitamin B12 -) 1,000 mcg PO DAILY [facility] Last Admin: 12/25/16 10:19 Dose: 1,000 mcg Doxazosin Mesylate (Cardura -) 4 mg PO DAILY [facility] Last Admin: 12/25/16 10:21 Dose: 4 mg Furosemide (Lasix -) 40 mg PO BID@0600,1400 [facility] Gabapentin (Neurontin -) 100 mg PO DAILY [facility] Last Admin: 12/25/16 10:19 Dose: 100 mg Hydralazine HCl (Apresoline -) 50 mg PO DAILY [facility] Last Admin: 12/25/16 10:20 Dose: 50 mg Ertapenem 1 gm/ Sodium (Chloride) 50 mls @ 50 mls/hr IVPB DAILY [facility] PRN Reason: Protocol Insulin Aspart (Novolog Vial Sliding Scale -) 1 vial SQ ACHS [facility] PRN Reason: Protocol Last Admin: 12/25/16 12:20 Dose: 4 units Insulin Detemir (Levemir Vial) 20 units SQ BID@0700,2200 [facility] Last Admin: 12/25/16 06:15 Dose: 20 units Multivitamins/Minerals/Vitamin C (Tab-A-Vit -) 1 tab PO DAILY [facility] Last Admin: 12/25/16 10:19 Dose: 1 tab Non-Formulary Medication (Fluticasone/Salmeterol [Advair Hfa 115-21 Mcg Inhaler] ) 1 inh PO BID [facility] Ondansetron HCl (Zofran Injection) 4 mg IVPB Q6H PRN PRN Reason: NAUSEA Pantoprazole Sodium (Protonix -) 40 mg PO DAILY [facility] Last Admin: 12/25/16 10:19 Dose: 40 mg Sodium Bicarbonate (Sodium Bicarbonate -) 650 mg PO TID [facility] Last Admin: 12/25/16 14:03 Dose: 650 mg - Objective Vital Signs: Vital Signs Temperature 98.4 F 12/25/16 10:00 Pulse Rate 77 12/25/16 10:00 Respiratory Rate 18 12/25/16 14:20 Blood Pressure 159/103 12/25/16 10:00 O2 Sat by Pulse Oximetry (%) 100 12/25/16 14:20 Constitutional: Yes: No Distress, Calm, Obese Cardiovascular: Yes: Regular Rate and Rhythm Respiratory: Yes: Regular, CTA Bilaterally Gastrointestinal: Yes: Normal Bowel Sounds, Soft Musculoskeletal: Yes: WNL Extremities: Yes: WNL Neurological: Yes: Alert, Oriented Psychiatric: Yes: Alert, Oriented Labs: CBC, BMP 12/25/16 06:45 12/25/16 06:45 INR, PTT INR 1.24 (0.82-1.09) H 12/17/16 23:30 Assessment/Plan Problems (1) Sepsis Code(s): A41.9 - SEPSIS, UNSPECIFIED ORGANISM (2) Metabolic acidosis Code(s): E87.2 - ACIDOSIS (3) Urinary tract infection Code(s): N39.0 - URINARY TRACT INFECTION, SITE NOT SPECIFIED Qualifiers: Indwelling urinary catheter type: cystostomy catheter Encounter type: initial encounter (4) ARF (acute renal failure) Code(s): N17.9 - ACUTE KIDNEY FAILURE, UNSPECIFIED Qualifiers: Acute renal failure type: unspecified Qualified Code(s): N17.9 - Acute kidney failure, unspecified (5) Diabetes Code(s): E11.9 - TYPE 2 DIABETES MELLITUS WITHOUT COMPLICATIONS Qualifiers: Diabetes mellitus type: type 2 Diabetes mellitus complication status: with kidney complications Diabetes mellitus complication detail: with chronic kidney disease Chronic kidney disease stage: stage 3 (moderate) (6) Hypertension Code(s): I10 - ESSENTIAL (PRIMARY) HYPERTENSION Qualifiers: Hypertension type: essential hypertension Qualified Code(s): I10 - Essential (primary) hypertension gm negative bacteremia plan continue iv abx continue current mgmt rest as per primary patient doing well finish the course
[2016-12-25] MEDS: ATORVASTATIN CA 10 MG TABLET (FP) PO SCH (22:16)
[2016-12-26] MEDS: INSULIN SLIDING SCALE (NOVOLOG) 1 VIAL SQ SCH ×4 (07:01→21:41)
[2016-12-26] MEDS: SODIUM BICARBONATE 650 MG TABLET PO SCH ×3 (07:01→21:42)
[2016-12-26] MEDS: FUROSEMIDE 40 MG TABLET (FP) PO SCH ×2 (07:01→13:54)
[2016-12-26] MEDS: INSULIN DETEMIR 100 UNITS/ML MDV SQ SCH ×2 (07:01→21:42)
[2016-12-26 07:46] LABS: MCH 28.1 pg (25.7-33.7); MCHC 34.1 g/dl (32.0-35.9); MEAN CELL VOLUME 82.4 fl (80-96); MEAN PLT VOLUME 7.7 fl (7.5-11.1); PLATELET COUNT 364 K/MM3 (134-434); RDW 15.6 % (11.9-15.9); WHITE BLOOD COUNT 9.3 K/mm3 (4.0-10.0)
[2016-12-26 08:06] LABS: CALCIUM 9.6 mg/dL (8.5-10.1); COCKROFT - GAULT 55.13; CREATININE 2.4 mg/dL (0.7-1.3)
[2016-12-26 09:16] LABS: PLATELET ESTIMATE INCREASED (NORMAL)
[2016-12-26] MEDS ORDERED: PT OWN MED DRAWER 7, Y5N ONE (10:00)
[2016-12-26] MEDS: CHOLECALCIFEROL (VITAMIN D3) 1,000 UNIT TABLET (FP) PO SCH (10:03)
[2016-12-26] MEDS: CYANOCOBALAMIN 1,000 MCG TABLET (FP) PO SCH (10:03)
[2016-12-26] MEDS: MULTIVITAMINS (DAILY MVI) TABLET (FP) PO SCH (10:03)
[2016-12-26] MEDS: PANTOPRAZOLE 40 MG TABLET (FP) PO SCH (10:03)
[2016-12-26] MEDS: DOXAZOSIN MESYLATE 4 MG TABLET PO SCH (10:03)
[2016-12-26] MEDS: GABAPENTIN 100 MG CAPSULE (FP) PO SCH (10:03)
[2016-12-26] MEDS: ASPIRIN 81 MG CHEWABLE TABLETS PO SCH (10:03)
[2016-12-26] MEDS: hydrALAZINE HCL 50 MG TABLET (FP) PO SCH (10:03)
[2016-12-26] MEDS: ERTAPENEM SODIUM 1 GM in SODIUM CHLORIDE 50 ML IVPB SCH (10:04)
--- NOTE | 2016-12-26 13:44 | PN ---
Progress Note (short form) - Note Progress Note: Renal follow up for MEKA on CKD and Metabolic acidosis Pt seen and examined at the bedside feels well no fever, abd pain, N/V/D on IV Abx good urine output Vital Signs Temperature 98.8 F 12/26/16 10:18 Pulse Rate 70 12/26/16 10:18 Respiratory Rate 22 12/26/16 10:18 Blood Pressure 148/92 12/26/16 10:18 O2 Sat by Pulse Oximetry (%) 96 12/26/16 09:00 Intake & Output 12/23/16 12/24/16 12/25/16 12/26/16 23:59 23:59 23:59 23:59 Intake Total 50 1200 700 400 Output Total 2800 3500 1950 2000 Balance -2750 -2300 -1250 -1600 Gen: NAD, awake and alert CVS: RRR, No M/R Lungs: CTA, no rales Abd: soft NT/ND Ext: Trace to 1+ edema : Cystostomy on left LLQ CBC, BMP 12/26/16 06:30 12/26/16 06:30 Current Medications Acetaminophen (Tylenol -) 650 mg PO Q6H PRN PRN Reason: FEVER OR PAIN Last Admin: 12/19/16 05:46 Dose: 650 mg Acetylcysteine (Mucomyst 20 Oral / Inh Use Only*) 1,000 mg NEB Q6H PRN PRN Reason: Congestion Albuterol Sulfate (Ventolin 0.083% Nebulizer Soln -) 1 amp NEB Q6H PRN PRN Reason: SHORT OF BREATH/WHEEZING Aspirin (Asa -) 81 mg PO DAILY [facility] Last Admin: 12/26/16 10:03 Dose: 81 mg Atorvastatin Calcium (Lipitor -) 10 mg PO HS [facility] Last Admin: 12/25/16 22:16 Dose: 10 mg Cholecalciferol (Vitamin D3 -) 1,000 unit PO DAILY [facility] Last Admin: 12/26/16 10:03 Dose: 1,000 unit Cyanocobalamin (Vitamin B12 -) 1,000 mcg PO DAILY [facility] Last Admin: 12/26/16 10:03 Dose: 1,000 mcg Doxazosin Mesylate (Cardura -) 4 mg PO DAILY [facility] Last Admin: 12/26/16 10:03 Dose: 4 mg Furosemide (Lasix -) 40 mg PO BID@0600,1400 [facility] Last Admin: 12/26/16 07:01 Dose: 40 mg Gabapentin (Neurontin -) 100 mg PO DAILY [facility] Last Admin: 12/26/16 10:03 Dose: 100 mg Hydralazine HCl (Apresoline -) 50 mg PO DAILY [facility] Last Admin: 12/26/16 10:03 Dose: 50 mg Ertapenem 1 gm/ Sodium (Chloride) 50 mls @ 100 mls/hr IVPB DAILY [facility] PRN Reason: Protocol Last Admin: 12/26/16 10:04 Dose: 100 mls/hr Insulin Aspart (Novolog Vial Sliding Scale -) 1 vial SQ ACHS [facility] PRN Reason: Protocol Last Admin: 12/26/16 11:40 Dose: 2 units Insulin Detemir (Levemir Vial) 20 units SQ BID@0700,2200 [facility] Last Admin: 12/26/16 07:01 Dose: 20 units Multivitamins/Minerals/Vitamin C (Tab-A-Vit -) 1 tab PO DAILY [facility] Last Admin: 12/26/16 10:03 Dose: 1 tab Non-Formulary Medication (Fluticasone/Salmeterol [Advair Hfa 115-21 Mcg Inhaler] ) 1 inh PO BID [facility] Ondansetron HCl (Zofran Injection) 4 mg IVPB Q6H PRN PRN Reason: NAUSEA Pantoprazole Sodium (Protonix -) 40 mg PO DAILY [facility] Last Admin: 12/26/16 10:03 Dose: 40 mg Sodium Bicarbonate (Sodium Bicarbonate -) 650 mg PO TID [facility] Last Admin: 12/26/16 07:01 Dose: 650 mg A/P 65 year old gentleman with PMhx of CKD stage 4 (baseline Cr ~2.3-2.8), Bladder Ca s/p cystectomy with cystostomy, CVA, Hypertension, HLD, DM who presented with Chills and found to have UTI and MEKA on CKD. #Acute Renal Failure with Hx of CKD renal function stable on Lasix BID continue to trend BUN/Cr and electrolytes #Non-anion gap metabolic acidosis continue oral bicab trend serum bicarb daily #UTI/Leukocytosis continue Abx as per primary/ID #Hx of Hypertension on Christina Forbes DO
--- NOTE | 2016-12-26 15:32 | PN ---
Progress Note, Physician Chief Complaint: Mr Isaacs is without complaint. Denies cp, sob, n/v. - Current Medication List Current Medications: Active Medications Acetaminophen (Tylenol -) 650 mg PO Q6H PRN PRN Reason: FEVER OR PAIN Last Admin: 12/19/16 05:46 Dose: 650 mg Acetylcysteine (Mucomyst 20 Oral / Inh Use Only*) 1,000 mg NEB Q6H PRN PRN Reason: Congestion Albuterol Sulfate (Ventolin 0.083% Nebulizer Soln -) 1 amp NEB Q6H PRN PRN Reason: SHORT OF BREATH/WHEEZING Aspirin (Asa -) 81 mg PO DAILY [facility] Last Admin: 12/26/16 10:03 Dose: 81 mg Atorvastatin Calcium (Lipitor -) 10 mg PO HS [facility] Last Admin: 12/25/16 22:16 Dose: 10 mg Cholecalciferol (Vitamin D3 -) 1,000 unit PO DAILY [facility] Last Admin: 12/26/16 10:03 Dose: 1,000 unit Cyanocobalamin (Vitamin B12 -) 1,000 mcg PO DAILY [facility] Last Admin: 12/26/16 10:03 Dose: 1,000 mcg Doxazosin Mesylate (Cardura -) 4 mg PO DAILY [facility] Last Admin: 12/26/16 10:03 Dose: 4 mg Furosemide (Lasix -) 40 mg PO BID@0600,1400 [facility] Last Admin: 12/26/16 13:54 Dose: 40 mg Gabapentin (Neurontin -) 100 mg PO DAILY [facility] Last Admin: 12/26/16 10:03 Dose: 100 mg Hydralazine HCl (Apresoline -) 50 mg PO DAILY [facility] Last Admin: 12/26/16 10:03 Dose: 50 mg Ertapenem 1 gm/ Sodium (Chloride) 50 mls @ 100 mls/hr IVPB DAILY [facility] PRN Reason: Protocol Last Admin: 12/26/16 10:04 Dose: 100 mls/hr Insulin Aspart (Novolog Vial Sliding Scale -) 1 vial SQ ACHS [facility] PRN Reason: Protocol Last Admin: 12/26/16 11:40 Dose: 2 units Insulin Detemir (Levemir Vial) 20 units SQ BID@0700,2200 [facility] Last Admin: 12/26/16 07:01 Dose: 20 units Multivitamins/Minerals/Vitamin C (Tab-A-Vit -) 1 tab PO DAILY [facility] Last Admin: 12/26/16 10:03 Dose: 1 tab Non-Formulary Medication (Fluticasone/Salmeterol [Advair Hfa 115-21 Mcg Inhaler] ) 1 inh PO BID [facility] Ondansetron HCl (Zofran Injection) 4 mg IVPB Q6H PRN PRN Reason: NAUSEA Pantoprazole Sodium (Protonix -) 40 mg PO DAILY [facility] Last Admin: 12/26/16 10:03 Dose: 40 mg Sodium Bicarbonate (Sodium Bicarbonate -) 650 mg PO TID [facility] Last Admin: 12/26/16 13:54 Dose: 650 mg - Objective Vital Signs: Vital Signs Temperature 98.8 F 12/26/16 10:18 Pulse Rate 70 12/26/16 10:18 Respiratory Rate 22 12/26/16 10:18 Blood Pressure 148/92 12/26/16 10:18 O2 Sat by Pulse Oximetry (%) 96 12/26/16 09:00 Constitutional: Yes: No Distress, Calm, Obese Cardiovascular: Yes: Regular Rate and Rhythm. No: Gallop, Murmur, Rub Respiratory: Yes: Regular, CTA Bilaterally. No: Rales, Rhonchi, Wheezes Gastrointestinal: Yes: Normal Bowel Sounds, Soft. No: Distention, Tenderness Extremities: Yes: WNL Edema: No Labs: CBC, BMP 12/26/16 06:30 12/26/16 06:30 INR, PTT INR 1.24 (0.82-1.09) H 12/17/16 23:30 Problem List - Problems (1) Sepsis Code(s): A41.9 - SEPSIS, UNSPECIFIED ORGANISM (2) Metabolic acidosis Code(s): E87.2 - ACIDOSIS (3) Urinary tract infection Code(s): N39.0 - URINARY TRACT INFECTION, SITE NOT SPECIFIED Qualifiers: Indwelling urinary catheter type: cystostomy catheter Encounter type: initial encounter (4) ARF (acute renal failure) Code(s): N17.9 - ACUTE KIDNEY FAILURE, UNSPECIFIED Qualifiers: Acute renal failure type: unspecified Qualified Code(s): N17.9 - Acute kidney failure, unspecified (5) Diabetes Code(s): E11.9 - TYPE 2 DIABETES MELLITUS WITHOUT COMPLICATIONS Qualifiers: Diabetes mellitus type: type 2 Diabetes mellitus complication status: with kidney complications Diabetes mellitus complication detail: with chronic kidney disease Chronic kidney disease stage: stage 3 (moderate) (6) Hypertension Code(s): I10 - ESSENTIAL (PRIMARY) HYPERTENSION Qualifiers: Hypertension type: essential hypertension Qualified Code(s): I10 - Essential (primary) hypertension Assessment/Plan (1) Sepsis Assessment/Plan -repeat blood cultures negative -resolved Code(s): A41.9 - SEPSIS, UNSPECIFIED ORGANISM Qualifiers: Qualified Code(s): A41.51 - Sepsis due to Escherichia coli [E. coli] (2) Metabolic acidosis Assessment/Plan: -nephrology following -continue oral bicarb -at baseline Code(s): E87.2 - ACIDOSIS (3) Urinary tract infection Assessment/Plan: -urine culture growing esbl e.coli and providencii -continue ertapenem per ID -discharge when ID feels safe to transition to oral medications or finishes course with IV Code(s): N39.0 - URINARY TRACT INFECTION, SITE NOT SPECIFIED Qualifiers: Indwelling urinary catheter type: cystostomy catheter Encounter type: initial encounter (4) ARF (acute renal failure) Assessment/Plan: -with CKD -baseline Code(s): N17.9 - ACUTE KIDNEY FAILURE, UNSPECIFIED Qualifiers: Acute renal failure type: unspecified Qualified Code(s): N17.9 - Acute kidney failure, unspecified (5) Diabetes Assessment/Plan: -improved control on levemir 20 units bid -monitor Code(s): E11.9 - TYPE 2 DIABETES MELLITUS WITHOUT COMPLICATIONS Qualifiers: Diabetes mellitus type: type 2 Diabetes mellitus complication status: with kidney complications Diabetes mellitus complication detail: with chronic kidney disease Chronic kidney disease stage: stage 3 (moderate) Qualified Code(s): E11.22 - Type 2 diabetes mellitus with diabetic chronic kidney disease; N18.1 - Chronic kidney disease, stage 1; Z79.4 - [employer] ( 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 of insulin (6) Hypertension Assessment/Plan: -continue cardura and hydralazine Code(s): I10 - ESSENTIAL (PRIMARY) HYPERTENSION Qualifiers: Hypertension type: essential hypertension Qualified Code(s): I10 - Essential (primary) hypertension
[2016-12-26] MEDS: ATORVASTATIN CA 10 MG TABLET (FP) PO SCH (21:43)
[2016-12-27] MEDS: SODIUM BICARBONATE 650 MG TABLET PO SCH ×3 (06:41→21:56)
[2016-12-27] MEDS: FUROSEMIDE 40 MG TABLET (FP) PO SCH ×2 (06:41→14:03)
[2016-12-27] MEDS: INSULIN DETEMIR 100 UNITS/ML MDV SQ SCH ×2 (06:41→21:56)
[2016-12-27] MEDS: INSULIN SLIDING SCALE (NOVOLOG) 1 VIAL SQ SCH ×4 (06:41→22:08)
[2016-12-27] MEDS ORDERED: INSULIN (NOVOLOG) ASPART 100 UNITS/ML 10ML VIAL ONE (06:54)
[2016-12-27] MEDS ORDERED: PT OWN MED DRAWER 7, Y5N ONE ×2 (06:55→10:29)
[2016-12-27 08:00] LABS: CALCIUM 9.2 mg/dL (8.5-10.1); COCKROFT - GAULT 52.92; CREATININE 2.5 mg/dL (0.7-1.3); MAGNESIUM 2.2 mg/dL (1.8-2.4)
--- NOTE | 2016-12-27 08:00 | PN ---
Progress Note (short form) - Note Progress Note: PATIENT FEELS WELL. DENIES ANY CP / SOB . IN NO DISTRESS Selected Entries 12/27/16 02:00 Temperature 98.6 F Pulse Rate 79 Respiratory 18 Rate Blood Pressure 141/76 Blood Pressure 97 Mean Laboratory Tests 12/26/16 12/26/16 06:30 06:30 WBC 9.3 RBC 4.06 Hgb 11.4 L Hct 33.5 L Plt Count 364 Sodium 138 Potassium 5.2 H Chloride 109 H Carbon Dioxide 20 L Anion Gap 9 BUN 45 H Creatinine 2.4 H Random Glucose 204 H D P/E HEENT <> NECK SUPPLE COR <> S 1 S 2 HS DISTANT CHEST <> FEW SCATTERED RHONCHI ABD <> SOFT / NONTENDER / OBESE / RLL ILEAL CONDUIT BAG DRAINING CLEAR URINE EXT <> 1 --2 + STASIS EDEMA IMP : SEPSIS UTI METABOLIC ACIDOSIS ARF DIABETES HTN IMP : CONTINUE INVANZ PER I.D. BP CONTROLLED <> CONTINUE APRESOLINE PER RENAL <> CONTINUE NA + HCO3 / LASIX.
[2016-12-27] MEDS: hydrALAZINE HCL 50 MG TABLET (FP) PO SCH (10:31)
[2016-12-27] MEDS: GABAPENTIN 100 MG CAPSULE (FP) PO SCH (10:32)
[2016-12-27] MEDS: DOXAZOSIN MESYLATE 4 MG TABLET PO SCH (10:32)
[2016-12-27] MEDS: CHOLECALCIFEROL (VITAMIN D3) 1,000 UNIT TABLET (FP) PO SCH (10:32)
[2016-12-27] MEDS: ERTAPENEM SODIUM 1 GM in SODIUM CHLORIDE 50 ML IVPB SCH (10:32)
[2016-12-27] MEDS: CYANOCOBALAMIN 1,000 MCG TABLET (FP) PO SCH (10:32)
[2016-12-27] MEDS: PANTOPRAZOLE 40 MG TABLET (FP) PO SCH (10:32)
[2016-12-27] MEDS: MULTIVITAMINS (DAILY MVI) TABLET (FP) PO SCH (10:32)
[2016-12-27] MEDS: ASPIRIN 81 MG CHEWABLE TABLETS PO SCH (10:32)
--- NOTE | 2016-12-27 13:14 | PN ---
Progress Note, Physician Chief Complaint: 66 y/o male with Chronic Kidney disease, admitted with fever and Urosepsis Has indwelling Wells catheter draining cloudy urine. On Sodium Bicarb for Metabolic acidosis. - Current Medication List Current Medications: Active Medications Acetaminophen (Tylenol -) 650 mg PO Q6H PRN PRN Reason: FEVER OR PAIN Last Admin: 12/19/16 05:46 Dose: 650 mg Acetylcysteine (Mucomyst 20 Oral / Inh Use Only*) 1,000 mg NEB Q6H PRN PRN Reason: Congestion Albuterol Sulfate (Ventolin 0.083% Nebulizer Soln -) 1 amp NEB Q6H PRN PRN Reason: SHORT OF BREATH/WHEEZING Aspirin (Asa -) 81 mg PO DAILY [facility] Last Admin: 12/27/16 10:32 Dose: 81 mg Atorvastatin Calcium (Lipitor -) 10 mg PO HS [facility] Last Admin: 12/26/16 21:43 Dose: 10 mg Cholecalciferol (Vitamin D3 -) 1,000 unit PO DAILY [facility] Last Admin: 12/27/16 10:32 Dose: 1,000 unit Cyanocobalamin (Vitamin B12 -) 1,000 mcg PO DAILY [facility] Last Admin: 12/27/16 10:32 Dose: 1,000 mcg Doxazosin Mesylate (Cardura -) 4 mg PO DAILY [facility] Last Admin: 12/27/16 10:32 Dose: 4 mg Furosemide (Lasix -) 40 mg PO BID@0600,1400 [facility] Last Admin: 12/27/16 06:41 Dose: 40 mg Gabapentin (Neurontin -) 100 mg PO DAILY [facility] Last Admin: 12/27/16 10:32 Dose: 100 mg Hydralazine HCl (Apresoline -) 50 mg PO DAILY [facility] Last Admin: 12/27/16 10:31 Dose: 50 mg Ertapenem 1 gm/ Sodium (Chloride) 50 mls @ 100 mls/hr IVPB DAILY [facility] PRN Reason: Protocol Last Admin: 12/27/16 10:32 Dose: 100 mls/hr Insulin Aspart (Novolog Vial Sliding Scale -) 1 vial SQ ACHS [facility] PRN Reason: Protocol Last Admin: 12/27/16 12:22 Dose: 6 unit Insulin Detemir (Levemir Vial) 20 units SQ BID@0700,2200 [facility] Last Admin: 06/10/17 06:41 Dose: 20 units Multivitamins/Minerals/Vitamin C (Tab-A-Vit -) 1 tab PO DAILY [facility] Last Admin: 12/27/16 10:32 Dose: 1 tab Non-Formulary Medication (Fluticasone/Salmeterol [Advair Hfa 115-21 Mcg Inhaler] ) 1 inh PO BID [facility] Ondansetron HCl (Zofran Injection) 4 mg IVPB Q6H PRN PRN Reason: NAUSEA Pantoprazole Sodium (Protonix -) 40 mg PO DAILY [facility] Last Admin: 12/27/16 10:32 Dose: 40 mg Sodium Bicarbonate (Sodium Bicarbonate -) 650 mg PO TID [facility] Last Admin: 12/27/16 06:41 Dose: 650 mg - Objective Vital Signs: Vital Signs Temperature 99 F 12/27/16 10:00 Pulse Rate 80 12/27/16 10:00 Respiratory Rate 20 12/27/16 10:00 Blood Pressure 142/83 12/27/16 10:00 O2 Sat by Pulse Oximetry (%) 95 12/26/16 21:00 Constitutional: Yes: No Distress Eyes: Yes: Conjunctiva Clear HENT: Yes: Normocephalic Neck: Yes: Trachea Midline Cardiovascular: Yes: Regular Rate and Rhythm, S1 Respiratory: Yes: CTA Bilaterally, Diminished, Poor Air Entry Gastrointestinal: Yes: Normal Bowel Sounds, Abdomen, Obese Edema: Yes Edema: RUE: 2+, LLE: 2+ Neurological: Yes: Alert, Oriented Labs: CBC, BMP 12/26/16 06:30 12/27/16 06:00 INR, PTT INR 1.24 (0.82-1.09) H 12/17/16 23:30 Problem List - Problems (1) Fever Code(s): R50.9 - FEVER, UNSPECIFIED (2) Metabolic acidosis Code(s): E87.2 - ACIDOSIS (3) ARF (acute renal failure) Code(s): N17.9 - ACUTE KIDNEY FAILURE, UNSPECIFIED Qualifiers: Acute renal failure type: unspecified Qualified Code(s): N17.9 - Acute kidney failure, unspecified (4) Anemia Code(s): D64.9 - ANEMIA, UNSPECIFIED (5) Diabetes Code(s): E11.9 - TYPE 2 DIABETES MELLITUS WITHOUT COMPLICATIONS Qualifiers: Diabetes mellitus type: type 2 Diabetes mellitus complication status: with kidney complications Diabetes mellitus complication detail: with chronic kidney disease Chronic kidney disease stage: stage 3 (moderate) (6) Chronic kidney disease Code(s): N18.9 - CHRONIC KIDNEY DISEASE, UNSPECIFIED Assessment/Plan 66 y/o male, known to our service, with CKD 3, admitted with Urosepsis. H/o Cystectomy, and urostomy fro CA. Bladder. Over all feeling better since admission. Renal functions improving towards his baseline. Antibiotics well tolerated. Will continue Sod. Bicarb as ordered. Mariangel Kirkland MD
--- NOTE | 2016-12-27 13:53 | PN ---
Progress Note, Physician History of Present Illness: doing well no complaints - Current Medication List Current Medications: Active Medications Acetaminophen (Tylenol -) 650 mg PO Q6H PRN PRN Reason: FEVER OR PAIN Last Admin: 12/19/16 05:46 Dose: 650 mg Acetylcysteine (Mucomyst 20 Oral / Inh Use Only*) 1,000 mg NEB Q6H PRN PRN Reason: Congestion Albuterol Sulfate (Ventolin 0.083% Nebulizer Soln -) 1 amp NEB Q6H PRN PRN Reason: SHORT OF BREATH/WHEEZING Aspirin (Asa -) 81 mg PO DAILY [facility] Last Admin: 12/27/16 10:32 Dose: 81 mg Atorvastatin Calcium (Lipitor -) 10 mg PO HS [facility] Last Admin: 12/26/16 21:43 Dose: 10 mg Cholecalciferol (Vitamin D3 -) 1,000 unit PO DAILY [facility] Last Admin: 12/27/16 10:32 Dose: 1,000 unit Cyanocobalamin (Vitamin B12 -) 1,000 mcg PO DAILY [facility] Last Admin: 12/27/16 10:32 Dose: 1,000 mcg Doxazosin Mesylate (Cardura -) 4 mg PO DAILY [facility] Last Admin: 12/27/16 10:32 Dose: 4 mg Furosemide (Lasix -) 40 mg PO BID@0600,1400 [facility] Last Admin: 12/27/16 06:41 Dose: 40 mg Gabapentin (Neurontin -) 100 mg PO DAILY [facility] Last Admin: 12/27/16 10:32 Dose: 100 mg Hydralazine HCl (Apresoline -) 50 mg PO DAILY [facility] Last Admin: 12/27/16 10:31 Dose: 50 mg Ertapenem 1 gm/ Sodium (Chloride) 50 mls @ 100 mls/hr IVPB DAILY [facility] PRN Reason: Protocol Last Admin: 12/27/16 10:32 Dose: 100 mls/hr Insulin Aspart (Novolog Vial Sliding Scale -) 1 vial SQ ACHS [facility] PRN Reason: Protocol Last Admin: 12/27/16 12:22 Dose: 6 unit Insulin Detemir (Levemir Vial) 20 units SQ BID@0700,2200 [facility] Last Admin: 12/27/16 06:41 Dose: 20 units Multivitamins/Minerals/Vitamin C (Tab-A-Vit -) 1 tab PO DAILY [facility] Last Admin: 12/27/16 10:32 Dose: 1 tab Non-Formulary Medication (Fluticasone/Salmeterol [Advair Hfa 115-21 Mcg Inhaler] ) 1 inh PO BID [facility] Ondansetron HCl (Zofran Injection) 4 mg IVPB Q6H PRN PRN Reason: NAUSEA Pantoprazole Sodium (Protonix -) 40 mg PO DAILY [facility] Last Admin: 12/27/16 10:32 Dose: 40 mg Sodium Bicarbonate (Sodium Bicarbonate -) 650 mg PO TID [facility] Last Admin: 12/27/16 06:41 Dose: 650 mg - Objective Vital Signs: Vital Signs Temperature 99 F 12/27/16 10:00 Pulse Rate 80 12/27/16 10:00 Respiratory Rate 20 12/27/16 10:00 Blood Pressure 142/83 12/27/16 10:00 O2 Sat by Pulse Oximetry (%) 97 12/27/16 09:00 Constitutional: Yes: No Distress, Calm, Obese Cardiovascular: Yes: Regular Rate and Rhythm Respiratory: Yes: Regular, CTA Bilaterally Gastrointestinal: Yes: Normal Bowel Sounds, Soft Musculoskeletal: Yes: WNL Extremities: Yes: WNL Wound/Incision: Yes: Other Neurological: Yes: Alert, Oriented Psychiatric: Yes: Alert Labs: CBC, BMP 12/26/16 06:30 12/27/16 06:00 INR, PTT INR 1.24 (0.82-1.09) H 12/17/16 23:30 Assessment/Plan Problems (1) Sepsis Code(s): A41.9 - SEPSIS, UNSPECIFIED ORGANISM (2) Metabolic acidosis Code(s): E87.2 - ACIDOSIS (3) Urinary tract infection Code(s): N39.0 - URINARY TRACT INFECTION, SITE NOT SPECIFIED Qualifiers: Indwelling urinary catheter type: cystostomy catheter Encounter type: initial encounter (4) ARF (acute renal failure) Code(s): N17.9 - ACUTE KIDNEY FAILURE, UNSPECIFIED Qualifiers: Acute renal failure type: unspecified Qualified Code(s): N17.9 - Acute kidney failure, unspecified (5) Diabetes Code(s): E11.9 - TYPE 2 DIABETES MELLITUS WITHOUT COMPLICATIONS Qualifiers: Diabetes mellitus type: type 2 Diabetes mellitus complication status: with kidney complications Diabetes mellitus complication detail: with chronic kidney disease Chronic kidney disease stage: stage 3 (moderate) (6) Hypertension Code(s): I10 - ESSENTIAL (PRIMARY) HYPERTENSION Qualifiers: Hypertension type: essential hypertension Qualified Code(s): I10 - Essential (primary) hypertension gm negative bacteremia plan continue iv abx continue current mgmt rest as per primary patient doing well finish the course
--- NOTE | 2016-12-27 13:54 | PN ---
Progress Note, Physician History of Present Illness: patient stable doing well - Current Medication List Current Medications: Active Medications Acetaminophen (Tylenol -) 650 mg PO Q6H PRN PRN Reason: FEVER OR PAIN Last Admin: 12/19/16 05:46 Dose: 650 mg Acetylcysteine (Mucomyst 20 Oral / Inh Use Only*) 1,000 mg NEB Q6H PRN PRN Reason: Congestion Albuterol Sulfate (Ventolin 0.083% Nebulizer Soln -) 1 amp NEB Q6H PRN PRN Reason: SHORT OF BREATH/WHEEZING Aspirin (Asa -) 81 mg PO DAILY [facility] [place] Last Admin: 12/27/16 10:32 Dose: 81 mg Atorvastatin Calcium (Lipitor -) 10 mg PO HS [facility] [place] Last Admin: 12/26/16 21:43 Dose: 10 mg Cholecalciferol (Vitamin D3 -) 1,000 unit PO DAILY [facility] [place] Last Admin: 12/27/16 10:32 Dose: 1,000 unit Cyanocobalamin (Vitamin B12 -) 1,000 mcg PO DAILY [facility] [place] Last Admin: 12/27/16 10:32 Dose: 1,000 mcg Doxazosin Mesylate (Cardura -) 4 mg PO DAILY [facility] [place] Last Admin: 12/27/16 10:32 Dose: 4 mg Furosemide (Lasix -) 40 mg PO BID@0600,1400 [facility] [place] Last Admin: 12/27/16 06:41 Dose: 40 mg Gabapentin (Neurontin -) 100 mg PO DAILY [facility] [place] Last Admin: 12/27/16 10:32 Dose: 100 mg Hydralazine HCl (Apresoline -) 50 mg PO DAILY [facility] [place] Last Admin: 12/27/16 10:31 Dose: 50 mg Ertapenem 1 gm/ Sodium (Chloride) 50 mls @ 100 mls/hr IVPB DAILY [facility] [place] PRN Reason: Protocol Last Admin: 12/27/16 10:32 Dose: 100 mls/hr Insulin Aspart (Novolog Vial Sliding Scale -) 1 vial SQ ACHS [facility] [place] PRN Reason: Protocol Last Admin: 12/27/16 12:22 Dose: 6 unit Insulin Detemir (Levemir Vial) 20 units SQ BID@0700,2200 [facility] [place] Last Admin: 12/27/16 06:41 Dose: 20 units Multivitamins/Minerals/Vitamin C (Tab-A-Vit -) 1 tab PO DAILY [facility] [place] Last Admin: 12/27/16 10:32 Dose: 1 tab Non-Formulary Medication (Fluticasone/Salmeterol [Advair Hfa 115-21 Mcg Inhaler] ) 1 inh PO BID [facility] [place] Ondansetron HCl (Zofran Injection) 4 mg IVPB Q6H PRN PRN Reason: NAUSEA Pantoprazole Sodium (Protonix -) 40 mg PO DAILY [facility] [place] Last Admin: 12/27/16 10:32 Dose: 40 mg Sodium Bicarbonate (Sodium Bicarbonate -) 650 mg PO TID [facility] [place] Last Admin: 12/27/16 06:41 Dose: 650 mg - Objective Vital Signs: Vital Signs Temperature 99 F 12/27/16 10:00 Pulse Rate 80 12/27/16 10:00 Respiratory Rate 20 12/27/16 10:00 Blood Pressure 142/83 12/27/16 10:00 O2 Sat by Pulse Oximetry (%) 97 12/27/16 09:00 Constitutional: Yes: No Distress, Calm, Obese Cardiovascular: Yes: Regular Rate and Rhythm Respiratory: Yes: Regular, CTA Bilaterally Gastrointestinal: Yes: Normal Bowel Sounds, Soft Musculoskeletal: Yes: WNL Extremities: Yes: WNL Neurological: Yes: Alert, Oriented Psychiatric: Yes: Alert Labs: CBC, BMP 12/26/16 06:30 12/27/16 06:00 INR, PTT INR 1.24 (0.82-1.09) H 12/17/16 23:30 Assessment/Plan Problems (1) Sepsis Code(s): A41.9 - SEPSIS, UNSPECIFIED ORGANISM (2) Metabolic acidosis Code(s): E87.2 - ACIDOSIS (3) Urinary tract infection Code(s): N39.0 - URINARY TRACT INFECTION, SITE NOT SPECIFIED Qualifiers: Indwelling urinary catheter type: cystostomy catheter Encounter type: initial encounter (4) ARF (acute renal failure) Code(s): N17.9 - ACUTE KIDNEY FAILURE, UNSPECIFIED Qualifiers: Acute renal failure type: unspecified Qualified Code(s): N17.9 - Acute kidney failure, unspecified (5) Diabetes Code(s): E11.9 - TYPE 2 DIABETES MELLITUS WITHOUT COMPLICATIONS Qualifiers: Diabetes mellitus type: type 2 Diabetes mellitus complication status: with kidney complications Diabetes mellitus complication detail: with chronic kidney disease Chronic kidney disease stage: stage 3 (moderate) (6) Hypertension Code(s): I10 - ESSENTIAL (PRIMARY) HYPERTENSION Qualifiers: Hypertension type: essential hypertension Qualified Code(s): I10 - Essential (primary) hypertension gm negative bacteremia plan complete the abx course rest ct current mgmt
[2016-12-27] MEDS: ATORVASTATIN CA 10 MG TABLET (FP) PO SCH (21:56)
[2016-12-28] MEDS: FUROSEMIDE 40 MG TABLET (FP) PO SCH ×3 (06:24→14:02)
[2016-12-28] MEDS: SODIUM BICARBONATE 650 MG TABLET PO SCH ×3 (06:24→21:41)
[2016-12-28] MEDS: INSULIN DETEMIR 100 UNITS/ML MDV SQ SCH ×2 (06:25→21:40)
[2016-12-28] MEDS: INSULIN SLIDING SCALE (NOVOLOG) 1 VIAL SQ SCH ×4 (06:35→21:57)
--- NOTE | 2016-12-28 07:40 | PN ---
Progress Note (short form) - Note Progress Note: PATIENT SAYS HE FEELS BETTER TODAY. NO ABDOMINAL PAIN / NO CP OR SOB . RECEIVING IV AB. Selected Entries 12/27/16 12/28/16 21:00 02:00 Temperature 98.1 F Pulse Rate 84 Respiratory 20 Rate Blood Pressure 120/77 O2 Sat by Pulse 98 Oximetry (%) Oxygen Delivery Room Air Method Laboratory Tests 12/26/16 12/27/16 12/28/16 06:30 06:00 06:31 WBC 9.3 RBC 4.06 Hgb 11.4 L Hct 33.5 L Plt Count 364 Sodium 137 Potassium 4.9 Chloride 105 Carbon Dioxide 19 L Anion Gap 13 BUN 43 H Creatinine 2.5 H POC Glucometer 197 Random Glucose 209 H Calcium 9.2 Magnesium 2.2 Selected Entries Laboratory Tests P/E <> ALERT / NO DISTRESS HEENT <> NECK SUPPLE COR <> S 1 S 2 HS DISTANT CHEST <> FEW SCATTERED RHONCHI AT BASES . ABD <> OBESE / NONTENDER / RLL ILEAL CONDUIT DRAINING CLEAR URINE EXT <> 2 + STASIS EDEMA IMP : SEPSIS UTI METABOLIC ACIDOSIS ARF DIABETES HTN IMP : CONTINUE INVANZ PER I.D. APRESOLINE FOE BP CONTROL FOLLOW BGM'S AND COVERAGE. CONTINUE NA + HCO3 & LASIX PER RENAL.
[2016-12-28 08:41] LABS: ALBUMIN 3.3 g/dl (3.4-5.0); BILIRUBIN,TOTAL 0.3 mg/dL (0.2-1.0); CALCIUM 9.3 mg/dL (8.5-10.1); CREATININE 2.7 mg/dL (0.7-1.3); TOT PROT 7.6 g/dl (6.4-8.2)
[2016-12-28] MEDS ORDERED: PT OWN MED DRAWER 7, Y5N ONE (10:35)
[2016-12-28] MEDS: hydrALAZINE HCL 50 MG TABLET (FP) PO SCH (10:37)
[2016-12-28] MEDS: ASPIRIN 81 MG CHEWABLE TABLETS PO SCH (10:37)
[2016-12-28] MEDS: PANTOPRAZOLE 40 MG TABLET (FP) PO SCH (10:38)
[2016-12-28] MEDS: CHOLECALCIFEROL (VITAMIN D3) 1,000 UNIT TABLET (FP) PO SCH (10:38)
[2016-12-28] MEDS: GABAPENTIN 100 MG CAPSULE (FP) PO SCH (10:38)
[2016-12-28] MEDS: MULTIVITAMINS (DAILY MVI) TABLET (FP) PO SCH (10:38)
[2016-12-28] MEDS: CYANOCOBALAMIN 1,000 MCG TABLET (FP) PO SCH (10:38)
[2016-12-28] MEDS: ERTAPENEM SODIUM 1 GM in SODIUM CHLORIDE 50 ML IVPB SCH (10:38)
[2016-12-28] MEDS: DOXAZOSIN MESYLATE 4 MG TABLET PO SCH (10:41)
--- NOTE | 2016-12-28 12:23 | PN ---
Progress Note, Physician Chief Complaint: Patient seen in his room. Wells catheter draining large amounts of urine. On Lasix 40 mg BID. Renal functions are marginall y worse. - Current Medication List Current Medications: Active Medications Acetaminophen (Tylenol -) 650 mg PO Q6H PRN PRN Reason: FEVER OR PAIN Last Admin: 12/19/16 05:46 Dose: 650 mg Acetylcysteine (Mucomyst 20 Oral / Inh Use Only*) 1,000 mg NEB Q6H PRN PRN Reason: Congestion Albuterol Sulfate (Ventolin 0.083% Nebulizer Soln -) 1 amp NEB Q6H PRN PRN Reason: SHORT OF BREATH/WHEEZING Aspirin (Asa -) 81 mg PO DAILY [facility] Last Admin: 12/28/16 10:37 Dose: 81 mg Atorvastatin Calcium (Lipitor -) 10 mg PO HS [facility] Last Admin: 12/27/16 21:56 Dose: 10 mg Cholecalciferol (Vitamin D3 -) 1,000 unit PO DAILY [facility] Last Admin: 12/28/16 10:38 Dose: 1,000 unit Cyanocobalamin (Vitamin B12 -) 1,000 mcg PO DAILY [facility] Last Admin: 12/28/16 10:38 Dose: 1,000 mcg Doxazosin Mesylate (Cardura -) 4 mg PO DAILY [facility] Last Admin: 12/28/16 10:41 Dose: 4 mg Furosemide (Lasix -) 40 mg PO DAILY [facility] Gabapentin (Neurontin -) 100 mg PO DAILY [facility] Last Admin: 12/28/16 10:38 Dose: 100 mg Hydralazine HCl (Apresoline -) 50 mg PO DAILY [facility] Last Admin: 12/28/16 10:37 Dose: 50 mg Ertapenem 1 gm/ Sodium (Chloride) 50 mls @ 100 mls/hr IVPB DAILY [facility] PRN Reason: Protocol Last Admin: 12/28/16 10:38 Dose: 100 mls/hr Insulin Aspart (Novolog Vial Sliding Scale -) 1 vial SQ ACHS [facility] PRN Reason: Protocol Last Admin: 12/28/16 12:03 Dose: 6 unit Insulin Detemir (Levemir Vial) 20 units SQ BID@0700,2200 [facility] Last Admin: 12/28/16 06:25 Dose: 20 units Multivitamins/Minerals/Vitamin C (Tab-A-Vit -) 1 tab PO DAILY [facility] Last Admin: 12/28/16 10:38 Dose: 1 tab Non-Formulary Medication (Fluticasone/Salmeterol [Advair Hfa 115-21 Mcg Inhaler] ) 1 inh PO BID [facility] Ondansetron HCl (Zofran Injection) 4 mg IVPB Q6H PRN PRN Reason: NAUSEA Pantoprazole Sodium (Protonix -) 40 mg PO DAILY [facility] Last Admin: 12/28/16 10:38 Dose: 40 mg Sodium Bicarbonate (Sodium Bicarbonate -) 650 mg PO TID [facility] Last Admin: 12/28/16 14:01 Dose: 650 mg - Objective Vital Signs: Vital Signs Temperature 98.6 F 12/28/16 10:00 Pulse Rate 87 12/28/16 13:53 Respiratory Rate 20 12/28/16 13:53 Blood Pressure 122/61 12/28/16 13:53 O2 Sat by Pulse Oximetry (%) 98 12/27/16 21:00 Constitutional: Yes: Well Nourished Neck: Yes: Trachea Midline Cardiovascular: Yes: Regular Rate and Rhythm, S1, S2 Respiratory: Yes: CTA Bilaterally, Poor Air Entry Gastrointestinal: Yes: Abdomen, Obese Labs: CBC, BMP 12/28/16 13:13 12/28/16 06:10 INR, PTT INR 1.24 (0.82-1.09) H 12/17/16 23:30 <Mariangel Kirkland - Last Filed: 12/28/16 14:09> History of Present Illness: patient stable doing well no complaints - Current Medication List Current Medications: Active Medications Acetaminophen (Tylenol -) 650 mg PO Q6H PRN PRN Reason: FEVER OR PAIN Last Admin: 12/19/16 05:46 Dose: 650 mg Acetylcysteine (Mucomyst 20 Oral / Inh Use Only*) 1,000 mg NEB Q6H PRN PRN Reason: Congestion Albuterol Sulfate (Ventolin 0.083% Nebulizer Soln -) 1 amp NEB Q6H PRN PRN Reason: SHORT OF BREATH/WHEEZING Aspirin (Asa -) 81 mg PO DAILY [facility] Last Admin: 12/28/16 10:37 Dose: 81 mg Atorvastatin Calcium (Lipitor -) 10 mg PO HS [facility] Last Admin: 12/27/16 21:56 Dose: 10 mg Cholecalciferol (Vitamin D3 -) 1,000 unit PO DAILY [facility] Last Admin: 12/28/16 10:38 Dose: 1,000 unit Cyanocobalamin (Vitamin B12 -) 1,000 mcg PO DAILY [facility] Last Admin: 12/28/16 10:38 Dose: 1,000 mcg Doxazosin Mesylate (Cardura -) 4 mg PO DAILY [facility] Last Admin: 12/28/16 10:41 Dose: 4 mg Furosemide (Lasix -) 40 mg PO BID@0600,1400 [facility] Last Admin: 12/28/16 06:24 Dose: 40 mg Gabapentin (Neurontin -) 100 mg PO DAILY [facility] Last Admin: 12/28/16 10:38 Dose: 100 mg Hydralazine HCl (Apresoline -) 50 mg PO DAILY [facility] Last Admin: 12/28/16 10:37 Dose: 50 mg Ertapenem 1 gm/ Sodium (Chloride) 50 mls @ 100 mls/hr IVPB DAILY [facility] PRN Reason: Protocol Last Admin: 12/28/16 10:38 Dose: 100 mls/hr Insulin Aspart (Novolog Vial Sliding Scale -) 1 vial SQ ACHS [facility] PRN Reason: Protocol Last Admin: 12/28/16 12:03 Dose: 6 unit Insulin Detemir (Levemir Vial) 20 units SQ BID@0700,2200 [facility] Last Admin: 12/28/16 06:25 Dose: 20 units Multivitamins/Minerals/Vitamin C (Tab-A-Vit -) 1 tab PO DAILY [facility] Last Admin: 12/28/16 10:38 Dose: 1 tab Non-Formulary Medication (Fluticasone/Salmeterol [Advair Hfa 115-21 Mcg Inhaler] ) 1 inh PO BID [facility] Ondansetron HCl (Zofran Injection) 4 mg IVPB Q6H PRN PRN Reason: NAUSEA Pantoprazole Sodium (Protonix -) 40 mg PO DAILY [facility] Last Admin: 12/28/16 10:38 Dose: 40 mg Sodium Bicarbonate (Sodium Bicarbonate -) 650 mg PO TID [facility] Last Admin: 12/28/16 06:24 Dose: 650 mg - Objective Vital Signs: Vital Signs Temperature 98.6 F 12/28/16 10:00 Pulse Rate 82 12/28/16 10:00 Respiratory Rate 20 12/28/16 10:00 Blood Pressure 129/73 12/28/16 10:00 O2 Sat by Pulse Oximetry (%) 98 12/27/16 21:00 Constitutional: Yes: No Distress, Calm Cardiovascular: Yes: Regular Rate and Rhythm Respiratory: Yes: Regular, CTA Bilaterally Gastrointestinal: Yes: Normal Bowel Sounds, Soft Musculoskeletal: Yes: WNL Extremities: Yes: WNL Neurological: Yes: Alert, Oriented Psychiatric: Yes: Alert, Oriented Labs: CBC, BMP 12/26/16 06:30 12/28/16 06:10 INR, PTT INR 1.24 (0.82-1.09) H 12/17/16 23:30 <Elizabeth Baires - Last Filed: 12/29/16 13:40> Problem List - Problems (1) Fever Code(s): R50.9 - FEVER, UNSPECIFIED (2) Metabolic acidosis Code(s): E87.2 - ACIDOSIS (3) ARF (acute renal failure) Code(s): N17.9 - ACUTE KIDNEY FAILURE, UNSPECIFIED Qualifiers: Acute renal failure type: unspecified Qualified Code(s): N17.9 - Acute kidney failure, unspecified (4) Anemia Code(s): D64.9 - ANEMIA, UNSPECIFIED (5) Diabetes Code(s): E11.9 - TYPE 2 DIABETES MELLITUS WITHOUT COMPLICATIONS Qualifiers: Diabetes mellitus type: type 2 Diabetes mellitus complication status: with kidney complications Diabetes mellitus complication detail: with chronic kidney disease Chronic kidney disease stage: stage 3 (moderate) (6) Chronic kidney disease Code(s): N18.9 - CHRONIC KIDNEY DISEASE, UNSPECIFIED <Mariangel Kirkland - Last Filed: 12/28/16 14:09> Assessment/Plan 66 y/o male with Acute worsening of the Renal functions, compared to the baseline. Possibly Hemodynamic, and Prerenal from the excessive diuretic response. On Lasix twice daily. Will reduce it to once daily. Serum Bicarb improving slowly. Labs as ordered for tomorrow. Mariangel Kirkland MD <Mariangel Kirkland - Last Filed: 12/28/16 14:09> Problems (1) Sepsis Code(s): A41.9 - SEPSIS, UNSPECIFIED ORGANISM (2) Metabolic acidosis Code(s): E87.2 - ACIDOSIS (3) Urinary tract infection Code(s): N39.0 - URINARY TRACT INFECTION, SITE NOT SPECIFIED Qualifiers: Indwelling urinary catheter type: cystostomy catheter Encounter type: initial encounter (4) ARF (acute renal failure) Code(s): N17.9 - ACUTE KIDNEY FAILURE, UNSPECIFIED Qualifiers: Acute renal failure type: unspecified Qualified Code(s): N17.9 - Acute kidney failure, unspecified (5) Diabetes Code(s): E11.9 - TYPE 2 DIABETES MELLITUS WITHOUT COMPLICATIONS Qualifiers: Diabetes mellitus type: type 2 Diabetes mellitus complication status: with kidney complications Diabetes mellitus complication detail: with chronic kidney disease Chronic kidney disease stage: stage 3 (moderate) (6) Hypertension Code(s): I10 - ESSENTIAL (PRIMARY) HYPERTENSION Qualifiers: Hypertension type: essential hypertension Qualified Code(s): I10 - Essential (primary) hypertension gm negative bacteremia plan complete the abx course rest ct current mgmt patient doing well <Elizabeth Baires - Last Filed: 12/29/16 13:40>
[2016-12-28 13:25] LABS: BASOPHIL 0.9 % (0-2.0); EOSINOPHIL 2.8 % (0-4.5); MCH 27.9 pg (25.7-33.7); MCHC 33.6 g/dl (32.0-35.9); MEAN CELL VOLUME 83.2 fl (80-96); MEAN PLT VOLUME 7.4 fl (7.5-11.1); NEUTROPHILS 76.1 % (42.8-82.8); PLATELET COUNT 376 K/MM3 (134-434); RDW 15.5 % (11.9-15.9); WHITE BLOOD COUNT 9.7 K/mm3 (4.0-10.0)
--- NOTE | 2016-12-28 14:09 | PN ---
Progress Note, Physician Chief Complaint: 66 y/o male with Chronic Kidney disease, admitted with fever and Urosepsis H/o Cystectomy for bladder CA, Indwelling Wells catheter. - Current Medication List Current Medications: Active Medications Acetaminophen (Tylenol -) 650 mg PO Q6H PRN PRN Reason: FEVER OR PAIN Last Admin: 12/19/16 05:46 Dose: 650 mg Acetylcysteine (Mucomyst 20 Oral / Inh Use Only*) 1,000 mg NEB Q6H PRN PRN Reason: Congestion Albuterol Sulfate (Ventolin 0.083% Nebulizer Soln -) 1 amp NEB Q6H PRN PRN Reason: SHORT OF BREATH/WHEEZING Aspirin (Asa -) 81 mg PO DAILY [facility] Last Admin: 12/28/16 10:37 Dose: 81 mg Atorvastatin Calcium (Lipitor -) 10 mg PO HS [facility] Last Admin: 12/27/16 21:56 Dose: 10 mg Cholecalciferol (Vitamin D3 -) 1,000 unit PO DAILY [facility] Last Admin: 12/28/16 10:38 Dose: 1,000 unit Cyanocobalamin (Vitamin B12 -) 1,000 mcg PO DAILY [facility] Last Admin: 12/28/16 10:38 Dose: 1,000 mcg Doxazosin Mesylate (Cardura -) 4 mg PO DAILY [facility] Last Admin: 12/28/16 10:41 Dose: 4 mg Furosemide (Lasix -) 40 mg PO DAILY [facility] Gabapentin (Neurontin -) 100 mg PO DAILY [facility] Last Admin: 12/28/16 10:38 Dose: 100 mg Hydralazine HCl (Apresoline -) 50 mg PO DAILY [facility] Last Admin: 12/28/16 10:37 Dose: 50 mg Ertapenem 1 gm/ Sodium (Chloride) 50 mls @ 100 mls/hr IVPB DAILY [facility] PRN Reason: Protocol Last Admin: 12/28/16 10:38 Dose: 100 mls/hr Insulin Aspart (Novolog Vial Sliding Scale -) 1 vial SQ ACHS [facility] PRN Reason: Protocol Last Admin: 12/28/16 12:03 Dose: 6 unit Insulin Detemir (Levemir Vial) 20 units SQ BID@0700,2200 [facility] Last Admin: 12/28/16 06:25 Dose: 20 units Multivitamins/Minerals/Vitamin C (Tab-A-Vit -) 1 tab PO DAILY [facility] Last Admin: 12/28/16 10:38 Dose: 1 tab Non-Formulary Medication (Fluticasone/Salmeterol [Advair Hfa 115-21 Mcg Inhaler] ) 1 inh PO BID [facility] Ondansetron HCl (Zofran Injection) 4 mg IVPB Q6H PRN PRN Reason: NAUSEA Pantoprazole Sodium (Protonix -) 40 mg PO DAILY [facility] Last Admin: 12/28/16 10:38 Dose: 40 mg Sodium Bicarbonate (Sodium Bicarbonate -) 650 mg PO TID [facility] Last Admin: 12/28/16 14:01 Dose: 650 mg - Objective Vital Signs: Vital Signs Temperature 98.6 F 12/28/16 10:00 Pulse Rate 87 12/28/16 13:53 Respiratory Rate 20 12/28/16 13:53 Blood Pressure 122/61 12/28/16 13:53 O2 Sat by Pulse Oximetry (%) 98 12/27/16 21:00 Constitutional: Yes: Well Nourished, Calm Eyes: Yes: EOM Intact HENT: Yes: Normocephalic Cardiovascular: Yes: Regular Rate and Rhythm, S1, S2 Respiratory: Yes: CTA Bilaterally, Poor Air Entry Gastrointestinal: Yes: Abdomen, Obese Labs: CBC, BMP 12/28/16 13:13 12/28/16 06:10 INR, PTT INR 1.24 (0.82-1.09) H 12/17/16 23:30 Problem List - Problems (1) Fever Code(s): R50.9 - FEVER, UNSPECIFIED (2) Metabolic acidosis Code(s): E87.2 - ACIDOSIS (3) ARF (acute renal failure) Code(s): N17.9 - ACUTE KIDNEY FAILURE, UNSPECIFIED Qualifiers: Acute renal failure type: unspecified Qualified Code(s): N17.9 - Acute kidney failure, unspecified (4) Anemia Code(s): D64.9 - ANEMIA, UNSPECIFIED (5) Diabetes Code(s): E11.9 - TYPE 2 DIABETES MELLITUS WITHOUT COMPLICATIONS Qualifiers: Diabetes mellitus type: type 2 Diabetes mellitus complication status: with kidney complications Diabetes mellitus complication detail: with chronic kidney disease Chronic kidney disease stage: stage 3 (moderate) (6) Chronic kidney disease Code(s): N18.9 - CHRONIC KIDNEY DISEASE, UNSPECIFIED Assessment/Plan 66 y/o male, known to our service, with CKD 3, admitted with Urosepsis. H/o Cystectomy, and urostomy fro CA. Bladder. Over all feeling better since admission. Renal functions improving towards his baseline. Antibiotics well tolerated. Will continue Sod. Bicarb as ordered. Mariangel Kirkland MD
[2016-12-28] MEDS ORDERED: INSULIN (NOVOLOG) ASPART 100 UNITS/ML 10ML VIAL ONE (21:01)
[2016-12-28] MEDS: ATORVASTATIN CA 10 MG TABLET (FP) PO SCH (21:41)
[2016-12-29] MEDS: SODIUM BICARBONATE 650 MG TABLET PO SCH ×2 (06:43→21:13)
[2016-12-29] MEDS: INSULIN DETEMIR 100 UNITS/ML MDV SQ SCH ×2 (06:44→21:13)
[2016-12-29] MEDS: INSULIN SLIDING SCALE (NOVOLOG) 1 VIAL SQ SCH ×4 (06:47→21:14)
[2016-12-29 07:54] LABS: CALCIUM 9.1 mg/dL (8.5-10.1); MAGNESIUM 2.2 mg/dL (1.8-2.4)
[2016-12-29 07:58] LABS: BILIRUBIN,TOTAL 0.5 mg/dL (0.2-1.0); CREATININE 2.7 mg/dL (0.7-1.3); TOT PROT 7.1 g/dl (6.4-8.2)
[2016-12-29 08:40] LABS: URIC ACID 7.8 mg/dL (2.6-7.2)
[2016-12-29] MEDS ORDERED: PT OWN MED DRAWER 7, Y5N ONE ×2 (09:06→09:21)
[2016-12-29 09:08] LABS: BASOPHIL 1.1 % (0-2.0); EOSINOPHIL 3.6 % (0-4.5); MCHC 33.8 g/dl (32.0-35.9); MEAN CELL VOLUME 82.9 fl (80-96); NEUTROPHILS 69.9 % (42.8-82.8); PLATELET COUNT 375 K/MM3 (134-434); RDW 15.4 % (11.9-15.9); WHITE BLOOD COUNT 7.9 K/mm3 (4.0-10.0)
[2016-12-29] MEDS: FUROSEMIDE 40 MG TABLET (FP) PO SCH (09:15)
[2016-12-29] MEDS: hydrALAZINE HCL 50 MG TABLET (FP) PO SCH (09:15)
[2016-12-29] MEDS: CHOLECALCIFEROL (VITAMIN D3) 1,000 UNIT TABLET (FP) PO SCH (09:15)
[2016-12-29] MEDS: ASPIRIN 81 MG CHEWABLE TABLETS PO SCH (09:15)
[2016-12-29] MEDS: MULTIVITAMINS (DAILY MVI) TABLET (FP) PO SCH (09:15)
[2016-12-29] MEDS: PANTOPRAZOLE 40 MG TABLET (FP) PO SCH (09:16)
[2016-12-29] MEDS: ERTAPENEM SODIUM 1 GM in SODIUM CHLORIDE 50 ML IVPB SCH (09:16)
[2016-12-29] MEDS: GABAPENTIN 100 MG CAPSULE (FP) PO SCH (09:16)
[2016-12-29] MEDS: CYANOCOBALAMIN 1,000 MCG TABLET (FP) PO SCH (09:16)
[2016-12-29] MEDS: DOXAZOSIN MESYLATE 4 MG TABLET PO SCH (09:24)
--- NOTE | 2016-12-29 11:19 | PN ---
Progress Note (short form) - Note Progress Note: Renal follow up for MEKA on CKD and Metabolic acidosis Pt seen and examined at the bedside no acute complaints Vital Signs Temperature 98.6 F 12/29/16 06:00 Pulse Rate 84 12/29/16 06:00 Respiratory Rate 20 12/29/16 06:00 Blood Pressure 142/86 12/29/16 06:00 O2 Sat by Pulse Oximetry (%) 97 12/28/16 09:00 Intake & Output 12/26/16 12/27/16 12/28/16 12/29/16 23:59 23:59 23:59 23:59 Intake Total 1040 1770 1050 Output Total 5100 3300 2700 1100 Balance -5471 -1536 -2564 -1100 Gen: NAD CVS: RRR, No M/R Lungs: CTA, no rales Abd: soft NT/ND Ext: Trace to 1+ edema : Cystostomy on left LLQ CBC, BMP 12/29/16 06:00 12/29/16 06:00 Current Medications Acetaminophen (Tylenol -) 650 mg PO Q6H PRN PRN Reason: FEVER OR PAIN Last Admin: 12/19/16 05:46 Dose: 650 mg Acetylcysteine (Mucomyst 20 Oral / Inh Use Only*) 1,000 mg NEB Q6H PRN PRN Reason: Congestion Albuterol Sulfate (Ventolin 0.083% Nebulizer Soln -) 1 amp NEB Q6H PRN PRN Reason: SHORT OF BREATH/WHEEZING Aspirin (Asa -) 81 mg PO DAILY [facility] Last Admin: 12/29/16 09:15 Dose: 81 mg Atorvastatin Calcium (Lipitor -) 10 mg PO HS [facility] Last Admin: 12/28/16 21:41 Dose: 10 mg Cholecalciferol (Vitamin D3 -) 1,000 unit PO DAILY [facility] Last Admin: 12/29/16 09:15 Dose: 1,000 unit Cyanocobalamin (Vitamin B12 -) 1,000 mcg PO DAILY [facility] Last Admin: 12/29/16 09:16 Dose: 1,000 mcg Doxazosin Mesylate (Cardura -) 4 mg PO DAILY [facility] Last Admin: 12/29/16 09:24 Dose: 4 mg Furosemide (Lasix -) 40 mg PO DAILY [facility] Last Admin: 12/29/16 09:15 Dose: 40 mg Gabapentin (Neurontin -) 100 mg PO DAILY [facility] Last Admin: 12/29/16 09:16 Dose: 100 mg Hydralazine HCl (Apresoline -) 50 mg PO DAILY [facility] Last Admin: 12/29/16 09:15 Dose: 50 mg Ertapenem 1 gm/ Sodium (Chloride) 50 mls @ 100 mls/hr IVPB DAILY [facility] PRN Reason: Protocol Last Admin: 12/29/16 09:16 Dose: 100 mls/hr Insulin Aspart (Novolog Vial Sliding Scale -) 1 vial SQ ACHS [facility] PRN Reason: Protocol Last Admin: 12/29/16 06:47 Dose: 4 unit Insulin Detemir (Levemir Vial) 20 units SQ BID@0700,2200 [facility] Last Admin: 12/29/16 06:44 Dose: 20 units Multivitamins/Minerals/Vitamin C (Tab-A-Vit -) 1 tab PO DAILY [facility] Last Admin: 12/29/16 09:15 Dose: 1 tab Non-Formulary Medication (Fluticasone/Salmeterol [Advair Hfa 115-21 Mcg Inhaler] ) 1 inh PO BID [facility] Ondansetron HCl (Zofran Injection) 4 mg IVPB Q6H PRN PRN Reason: NAUSEA Pantoprazole Sodium (Protonix -) 40 mg PO DAILY [facility] Last Admin: 12/29/16 09:16 Dose: 40 mg Sodium Bicarbonate (Sodium Bicarbonate -) 1,300 mg PO BID [facility] A/P 65 year old gentleman with PMhx of CKD stage 4 (baseline Cr ~2.3-2.8), Bladder Ca s/p cystectomy with cystostomy, CVA, Hypertension, HLD, DM who presented with Chills and found to have UTI and MEKA on CKD. #Acute Renal Failure with Hx of CKD Renal function stable continue lasix once daily #Non-anion gap metabolic acidosis increase sodium bicarbonate to 1300mg BID goal Bicarb ~22 #UTI/Leukocytosis continue Abx as per primary/ID #Hx of Hypertension on Christina Forbes DO
--- NOTE | 2016-12-29 11:37 | PN ---
Progress Note, Physician Chief Complaint: Mr Isaacs is without complaint. Denies cp, sob, n/v. - Current Medication List Current Medications: Active Medications Acetaminophen (Tylenol -) 650 mg PO Q6H PRN PRN Reason: FEVER OR PAIN Last Admin: 12/19/16 05:46 Dose: 650 mg Acetylcysteine (Mucomyst 20 Oral / Inh Use Only*) 1,000 mg NEB Q6H PRN PRN Reason: Congestion Aspirin (Asa -) 81 mg PO DAILY [facility] Last Admin: 12/29/16 09:15 Dose: 81 mg Atorvastatin Calcium (Lipitor -) 10 mg PO HS [facility] Last Admin: 12/28/16 21:41 Dose: 10 mg Cholecalciferol (Vitamin D3 -) 1,000 unit PO DAILY [facility] Last Admin: 12/29/16 09:15 Dose: 1,000 unit Cyanocobalamin (Vitamin B12 -) 1,000 mcg PO DAILY [facility] Last Admin: 12/29/16 09:16 Dose: 1,000 mcg Doxazosin Mesylate (Cardura -) 4 mg PO DAILY [facility] Last Admin: 12/29/16 09:24 Dose: 4 mg Furosemide (Lasix -) 40 mg PO DAILY [facility] Last Admin: 12/29/16 09:15 Dose: 40 mg Gabapentin (Neurontin -) 100 mg PO DAILY [facility] Last Admin: 12/29/16 09:16 Dose: 100 mg Hydralazine HCl (Apresoline -) 50 mg PO DAILY [facility] Last Admin: 12/29/16 09:15 Dose: 50 mg Ertapenem 1 gm/ Sodium (Chloride) 50 mls @ 100 mls/hr IVPB DAILY [facility] PRN Reason: Protocol Last Admin: 12/29/16 09:16 Dose: 100 mls/hr Insulin Aspart (Novolog Vial Sliding Scale -) 1 vial SQ ACHS [facility] PRN Reason: Protocol Last Admin: 12/29/16 06:47 Dose: 4 unit Insulin Detemir (Levemir Vial) 20 units SQ BID@0700,2200 [facility] Last Admin: 12/29/16 06:44 Dose: 20 units Multivitamins/Minerals/Vitamin C (Tab-A-Vit -) 1 tab PO DAILY [facility] Last Admin: 12/29/16 09:15 Dose: 1 tab Non-Formulary Medication (Fluticasone/Salmeterol [Advair Hfa 115-21 Mcg Inhaler] ) 1 inh PO BID [facility] Ondansetron HCl (Zofran Injection) 4 mg IVPB Q6H PRN PRN Reason: NAUSEA Pantoprazole Sodium (Protonix -) 40 mg PO DAILY [facility] Last Admin: 12/29/16 09:16 Dose: 40 mg Sodium Bicarbonate (Sodium Bicarbonate -) 1,300 mg PO BID [facility] - Objective Vital Signs: Vital Signs Temperature 98.6 F 12/29/16 06:00 Pulse Rate 84 12/29/16 06:00 Respiratory Rate 20 12/29/16 06:00 Blood Pressure 142/86 12/29/16 06:00 O2 Sat by Pulse Oximetry (%) 97 12/28/16 09:00 Constitutional: Yes: No Distress, Calm, Obese Cardiovascular: Yes: Regular Rate and Rhythm. No: Gallop, Murmur, Rub Respiratory: Yes: Regular, CTA Bilaterally. No: Rales, Rhonchi, Wheezes Gastrointestinal: Yes: Normal Bowel Sounds, Soft. No: Distention, Tenderness Extremities: Yes: WNL Edema: No Labs: CBC, BMP 12/29/16 06:00 12/29/16 06:00 INR, PTT INR 1.24 (0.82-1.09) H 12/17/16 23:30 Problem List - Problems (1) Sepsis Code(s): A41.9 - SEPSIS, UNSPECIFIED ORGANISM (2) Metabolic acidosis Code(s): E87.2 - ACIDOSIS (3) Urinary tract infection Code(s): N39.0 - URINARY TRACT INFECTION, SITE NOT SPECIFIED Qualifiers: Indwelling urinary catheter type: cystostomy catheter Encounter type: initial encounter (4) ARF (acute renal failure) Code(s): N17.9 - ACUTE KIDNEY FAILURE, UNSPECIFIED Qualifiers: Acute renal failure type: unspecified Qualified Code(s): N17.9 - Acute kidney failure, unspecified (5) Diabetes Code(s): E11.9 - TYPE 2 DIABETES MELLITUS WITHOUT COMPLICATIONS Qualifiers: Diabetes mellitus type: type 2 Diabetes mellitus complication status: with kidney complications Diabetes mellitus complication detail: with chronic kidney disease Chronic kidney disease stage: stage 3 (moderate) (6) Hypertension Code(s): I10 - ESSENTIAL (PRIMARY) HYPERTENSION Qualifiers: Hypertension type: essential hypertension Qualified Code(s): I10 - Essential (primary) hypertension Assessment/Plan (1) Sepsis Assessment/Plan -repeat blood cultures negative -resolved Code(s): A41.9 - SEPSIS, UNSPECIFIED ORGANISM Qualifiers: Qualified Code(s): A41.51 - Sepsis due to Escherichia coli [E. coli] (2) Metabolic acidosis Assessment/Plan: -nephrology following -bicarb increased -goal of 22 Code(s): E87.2 - ACIDOSIS (3) Urinary tract infection Assessment/Plan: -urine culture growing esbl e.coli and providencii -continue ertapenem per ID -day 07/02 Code(s): N39.0 - URINARY TRACT INFECTION, SITE NOT SPECIFIED Qualifiers: Indwelling urinary catheter type: cystostomy catheter Encounter type: initial encounter (4) ARF (acute renal failure) Assessment/Plan: -with CKD -baseline Code(s): N17.9 - ACUTE KIDNEY FAILURE, UNSPECIFIED Qualifiers: Acute renal failure type: unspecified Qualified Code(s): N17.9 - Acute kidney failure, unspecified (5) Diabetes Assessment/Plan: -improved control on levemir 20 units bid -monitor Code(s): E11.9 - TYPE 2 DIABETES MELLITUS WITHOUT COMPLICATIONS Qualifiers: Diabetes mellitus type: type 2 Diabetes mellitus complication status: with kidney complications Diabetes mellitus complication detail: with chronic kidney disease Chronic kidney disease stage: stage 3 (moderate) Qualified Code(s): E11.22 - Type 2 diabetes mellitus with diabetic chronic kidney disease; N18.1 - Chronic kidney disease, stage 1; Z79.4 - prison ( 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 of insulin (6) Hypertension Assessment/Plan: -continue cardura and hydralazine Code(s): I10 - ESSENTIAL (PRIMARY) HYPERTENSION Qualifiers: Hypertension type: essential hypertension Qualified Code(s): I10 - Essential (primary) hypertension
[2016-12-29] MEDS ORDERED: INSULIN (NOVOLOG) ASPART 100 UNITS/ML 10ML VIAL ONE ×2 (11:45→21:07)
--- NOTE | 2016-12-29 13:42 | PN ---
Progress Note, Physician History of Present Illness: no complaints patient feels well has been without fevers or shakes no complaints - Current Medication List Current Medications: Active Medications Acetaminophen (Tylenol -) 650 mg PO Q6H PRN PRN Reason: FEVER OR PAIN Last Admin: 12/19/16 05:46 Dose: 650 mg Acetylcysteine (Mucomyst 20 Oral / Inh Use Only*) 1,000 mg NEB Q6H PRN PRN Reason: Congestion Aspirin (Asa -) 81 mg PO DAILY [facility] Last Admin: 12/29/16 09:15 Dose: 81 mg Atorvastatin Calcium (Lipitor -) 10 mg PO HS [facility] Last Admin: 12/28/16 21:41 Dose: 10 mg Cholecalciferol (Vitamin D3 -) 1,000 unit PO DAILY [facility] Last Admin: 12/29/16 09:15 Dose: 1,000 unit Cyanocobalamin (Vitamin B12 -) 1,000 mcg PO DAILY [facility] Last Admin: 12/29/16 09:16 Dose: 1,000 mcg Doxazosin Mesylate (Cardura -) 4 mg PO DAILY [facility] Last Admin: 12/29/16 09:24 Dose: 4 mg Furosemide (Lasix -) 40 mg PO DAILY [facility] Last Admin: 12/29/16 09:15 Dose: 40 mg Gabapentin (Neurontin -) 100 mg PO DAILY [facility] Last Admin: 12/29/16 09:16 Dose: 100 mg Hydralazine HCl (Apresoline -) 50 mg PO DAILY [facility] Last Admin: 12/29/16 09:15 Dose: 50 mg Ertapenem 1 gm/ Sodium (Chloride) 50 mls @ 100 mls/hr IVPB DAILY [facility] PRN Reason: Protocol Last Admin: 12/29/16 09:16 Dose: 100 mls/hr Insulin Aspart (Novolog Vial Sliding Scale -) 1 vial SQ ACHS [facility] PRN Reason: Protocol Last Admin: 12/29/16 11:41 Dose: 4 unit Insulin Detemir (Levemir Vial) 20 units SQ BID@0700,2200 [facility] Last Admin: 12/29/16 06:44 Dose: 20 units Multivitamins/Minerals/Vitamin C (Tab-A-Vit -) 1 tab PO DAILY [facility] Last Admin: 12/29/16 09:15 Dose: 1 tab Non-Formulary Medication (Fluticasone/Salmeterol [Advair Hfa 115-21 Mcg Inhaler] ) 1 inh PO BID [facility] Ondansetron HCl (Zofran Injection) 4 mg IVPB Q6H PRN PRN Reason: NAUSEA Pantoprazole Sodium (Protonix -) 40 mg PO DAILY [facility] Last Admin: 12/29/16 09:16 Dose: 40 mg Sodium Bicarbonate (Sodium Bicarbonate -) 1,300 mg PO BID [facility] - Objective Vital Signs: Vital Signs Temperature 99.5 F 12/29/16 09:00 Pulse Rate 84 12/29/16 09:00 Respiratory Rate 20 12/29/16 09:00 Blood Pressure 149/79 12/29/16 09:00 O2 Sat by Pulse Oximetry (%) 97 12/29/16 09:00 Constitutional: Yes: No Distress, Calm Cardiovascular: Yes: Regular Rate and Rhythm Respiratory: Yes: Regular, CTA Bilaterally Gastrointestinal: Yes: Normal Bowel Sounds, Soft Musculoskeletal: Yes: WNL Extremities: Yes: WNL Neurological: Yes: Alert, Oriented Labs: CBC, BMP 12/29/16 06:00 12/29/16 06:00 INR, PTT INR 1.24 (0.82-1.09) H 12/17/16 23:30 Assessment/Plan Problems (1) Sepsis Code(s): A41.9 - SEPSIS, UNSPECIFIED ORGANISM (2) Metabolic acidosis Code(s): E87.2 - ACIDOSIS (3) Urinary tract infection Code(s): N39.0 - URINARY TRACT INFECTION, SITE NOT SPECIFIED Qualifiers: Indwelling urinary catheter type: cystostomy catheter Encounter type: initial encounter (4) ARF (acute renal failure) Code(s): N17.9 - ACUTE KIDNEY FAILURE, UNSPECIFIED Qualifiers: Acute renal failure type: unspecified Qualified Code(s): N17.9 - Acute kidney failure, unspecified (5) Diabetes Code(s): E11.9 - TYPE 2 DIABETES MELLITUS WITHOUT COMPLICATIONS Qualifiers: Diabetes mellitus type: type 2 Diabetes mellitus complication status: with kidney complications Diabetes mellitus complication detail: with chronic kidney disease Chronic kidney disease stage: stage 3 (moderate) (6) Hypertension Code(s): I10 - ESSENTIAL (PRIMARY) HYPERTENSION Qualifiers: Hypertension type: essential hypertension Qualified Code(s): I10 - Essential (primary) hypertension gm negative bacteremia plan complete the abx course rest ct current mgmt patient doing well rest as per primary team
[2016-12-29] MEDS: ATORVASTATIN CA 10 MG TABLET (FP) PO SCH (21:13)
[2016-12-30] MEDS: INSULIN DETEMIR 100 UNITS/ML MDV SQ SCH ×2 (06:54→22:44)
[2016-12-30] MEDS: INSULIN SLIDING SCALE (NOVOLOG) 1 VIAL SQ SCH ×4 (06:54→22:43)
[2016-12-30 08:40] LABS: CALCIUM 9.4 mg/dL (8.5-10.1); COCKROFT - GAULT 52.92; CREATININE 2.5 mg/dL (0.7-1.3); MAGNESIUM 2.2 mg/dL (1.8-2.4)
[2016-12-30 08:41] LABS: PHOSPHOROUS 3.4 mg/dL (2.5-4.9)
[2016-12-30] MEDS ORDERED: PT OWN MED DRAWER 7, Y5N ONE (09:09)
[2016-12-30] MEDS: CYANOCOBALAMIN 1,000 MCG TABLET (FP) PO SCH (09:15)
[2016-12-30] MEDS: DOXAZOSIN MESYLATE 4 MG TABLET PO SCH (09:15)
[2016-12-30] MEDS: FUROSEMIDE 40 MG TABLET (FP) PO SCH (09:15)
[2016-12-30] MEDS: MULTIVITAMINS (DAILY MVI) TABLET (FP) PO SCH (09:16)
[2016-12-30] MEDS: hydrALAZINE HCL 50 MG TABLET (FP) PO SCH (09:16)
[2016-12-30] MEDS: PANTOPRAZOLE 40 MG TABLET (FP) PO SCH (09:16)
[2016-12-30] MEDS: CHOLECALCIFEROL (VITAMIN D3) 1,000 UNIT TABLET (FP) PO SCH (09:16)
[2016-12-30] MEDS: ASPIRIN 81 MG CHEWABLE TABLETS PO SCH (09:17)
[2016-12-30] MEDS: SODIUM BICARBONATE 650 MG TABLET PO SCH ×2 (09:17→22:43)
[2016-12-30] MEDS: ERTAPENEM SODIUM 1 GM in SODIUM CHLORIDE 50 ML IVPB SCH (09:17)
[2016-12-30] MEDS: GABAPENTIN 100 MG CAPSULE (FP) PO SCH (09:18)
--- NOTE | 2016-12-30 14:07 | PN ---
Progress Note, Physician History of Present Illness: no complaints patient feels well has been without fevers or shakes no complaints - Current Medication List Current Medications: Active Medications Acetaminophen (Tylenol -) 650 mg PO Q6H PRN PRN Reason: FEVER OR PAIN Last Admin: 12/19/16 05:46 Dose: 650 mg Acetylcysteine (Mucomyst 20 Oral / Inh Use Only*) 1,000 mg NEB Q6H PRN PRN Reason: Congestion Aspirin (Asa -) 81 mg PO DAILY [facility] Last Admin: 12/30/16 09:17 Dose: 81 mg Atorvastatin Calcium (Lipitor -) 10 mg PO HS [facility] Last Admin: 12/29/16 21:13 Dose: 10 mg Cholecalciferol (Vitamin D3 -) 1,000 unit PO DAILY [facility] Last Admin: 12/30/16 09:16 Dose: 1,000 unit Cyanocobalamin (Vitamin B12 -) 1,000 mcg PO DAILY [facility] Last Admin: 12/30/16 09:15 Dose: 1,000 mcg Doxazosin Mesylate (Cardura -) 4 mg PO DAILY [facility] Last Admin: 12/30/16 09:15 Dose: 4 mg Furosemide (Lasix -) 40 mg PO DAILY [facility] Last Admin: 12/30/16 09:15 Dose: 40 mg Gabapentin (Neurontin -) 100 mg PO DAILY [facility] Last Admin: 12/30/16 09:18 Dose: 100 mg Hydralazine HCl (Apresoline -) 50 mg PO DAILY [facility] Last Admin: 12/30/16 09:16 Dose: 50 mg Ertapenem 1 gm/ Sodium (Chloride) 50 mls @ 100 mls/hr IVPB DAILY [facility] PRN Reason: Protocol Last Admin: 12/30/16 09:17 Dose: 100 mls/hr Insulin Aspart (Novolog Vial Sliding Scale -) 1 vial SQ ACHS [facility] PRN Reason: Protocol Last Admin: 12/30/16 12:34 Dose: 4 unit Insulin Detemir (Levemir Vial) 20 units SQ BID@0700,2200 [facility] Last Admin: 12/30/16 06:54 Dose: 20 units Multivitamins/Minerals/Vitamin C (Tab-A-Vit -) 1 tab PO DAILY [facility] Last Admin: 12/30/16 09:16 Dose: 1 tab Non-Formulary Medication (Fluticasone/Salmeterol [Advair Hfa 115-21 Mcg Inhaler] ) 1 inh PO BID [facility] Ondansetron HCl (Zofran Injection) 4 mg IVPB Q6H PRN PRN Reason: NAUSEA Pantoprazole Sodium (Protonix -) 40 mg PO DAILY [facility] Last Admin: 12/30/16 09:16 Dose: 40 mg Sodium Bicarbonate (Sodium Bicarbonate -) 1,300 mg PO BID [facility] Last Admin: 12/30/16 09:17 Dose: 1,300 mg - Objective Vital Signs: Vital Signs Temperature 99 F 12/30/16 09:00 Pulse Rate 75 12/30/16 09:00 Respiratory Rate 20 12/30/16 09:00 Blood Pressure 145/75 12/30/16 09:00 O2 Sat by Pulse Oximetry (%) 97 12/30/16 09:00 Constitutional: Yes: No Distress, Calm Cardiovascular: Yes: Regular Rate and Rhythm Respiratory: Yes: Regular, CTA Bilaterally Gastrointestinal: Yes: Normal Bowel Sounds, Soft Musculoskeletal: Yes: WNL Extremities: Yes: WNL Neurological: Yes: Alert, Oriented Psychiatric: Yes: Alert, Oriented Labs: CBC, BMP 12/29/16 06:00 12/30/16 07:15 INR, PTT INR 1.24 (0.82-1.09) H 12/17/16 23:30 Assessment/Plan Problems (1) Sepsis Code(s): A41.9 - SEPSIS, UNSPECIFIED ORGANISM (2) Metabolic acidosis Code(s): E87.2 - ACIDOSIS (3) Urinary tract infection Code(s): N39.0 - URINARY TRACT INFECTION, SITE NOT SPECIFIED Qualifiers: Indwelling urinary catheter type: cystostomy catheter Encounter type: initial encounter (4) ARF (acute renal failure) Code(s): N17.9 - ACUTE KIDNEY FAILURE, UNSPECIFIED Qualifiers: Acute renal failure type: unspecified Qualified Code(s): N17.9 - Acute kidney failure, unspecified (5) Diabetes Code(s): E11.9 - TYPE 2 DIABETES MELLITUS WITHOUT COMPLICATIONS Qualifiers: Diabetes mellitus type: type 2 Diabetes mellitus complication status: with kidney complications Diabetes mellitus complication detail: with chronic kidney disease Chronic kidney disease stage: stage 3 (moderate) (6) Hypertension Code(s): I10 - ESSENTIAL (PRIMARY) HYPERTENSION Qualifiers: Hypertension type: essential hypertension Qualified Code(s): I10 - Essential (primary) hypertension gm negative bacteremia plan complete the abx course rest ct current mgmt patient doing well rest as per primary team tomorrow will be the last dose
--- NOTE | 2016-12-30 15:38 | PN ---
Progress Note, Physician Chief Complaint: Mr Isaacs is without complaint. Denies cp, sob, n/v. - Current Medication List Current Medications: Active Medications Acetaminophen (Tylenol -) 650 mg PO Q6H PRN PRN Reason: FEVER OR PAIN Last Admin: 12/19/16 05:46 Dose: 650 mg Acetylcysteine (Mucomyst 20 Oral / Inh Use Only*) 1,000 mg NEB Q6H PRN PRN Reason: Congestion Aspirin (Asa -) 81 mg PO DAILY [facility] Last Admin: 12/30/16 09:17 Dose: 81 mg Atorvastatin Calcium (Lipitor -) 10 mg PO HS [facility] Last Admin: 12/29/16 21:13 Dose: 10 mg Cholecalciferol (Vitamin D3 -) 1,000 unit PO DAILY [facility] Last Admin: 12/30/16 09:16 Dose: 1,000 unit Cyanocobalamin (Vitamin B12 -) 1,000 mcg PO DAILY [facility] Last Admin: 12/30/16 09:15 Dose: 1,000 mcg Doxazosin Mesylate (Cardura -) 4 mg PO DAILY [facility] Last Admin: 12/30/16 09:15 Dose: 4 mg Furosemide (Lasix -) 40 mg PO DAILY [facility] Last Admin: 12/30/16 09:15 Dose: 40 mg Gabapentin (Neurontin -) 100 mg PO DAILY [facility] Last Admin: 12/30/16 09:18 Dose: 100 mg Hydralazine HCl (Apresoline -) 50 mg PO DAILY [facility] Last Admin: 12/30/16 09:16 Dose: 50 mg Ertapenem 1 gm/ Sodium (Chloride) 50 mls @ 100 mls/hr IVPB DAILY [facility] PRN Reason: Protocol Last Admin: 12/30/16 09:17 Dose: 100 mls/hr Insulin Aspart (Novolog Vial Sliding Scale -) 1 vial SQ ACHS [facility] PRN Reason: Protocol Last Admin: 12/30/16 12:34 Dose: 4 unit Insulin Detemir (Levemir Vial) 20 units SQ BID@0700,2200 [facility] Last Admin: 12/30/16 06:54 Dose: 20 units Multivitamins/Minerals/Vitamin C (Tab-A-Vit -) 1 tab PO DAILY [facility] Last Admin: 12/30/16 09:16 Dose: 1 tab Non-Formulary Medication (Fluticasone/Salmeterol [Advair Hfa 115-21 Mcg Inhaler] ) 1 inh PO BID [facility] Ondansetron HCl (Zofran Injection) 4 mg IVPB Q6H PRN PRN Reason: NAUSEA Pantoprazole Sodium (Protonix -) 40 mg PO DAILY [facility] Last Admin: 12/30/16 09:16 Dose: 40 mg Sodium Bicarbonate (Sodium Bicarbonate -) 1,300 mg PO BID [facility] Last Admin: 12/30/16 09:17 Dose: 1,300 mg - Objective Vital Signs: Vital Signs Temperature 98.4 F 12/30/16 14:06 Pulse Rate 62 12/30/16 14:06 Respiratory Rate 16 12/30/16 14:06 Blood Pressure 134/76 12/30/16 14:06 O2 Sat by Pulse Oximetry (%) 97 12/30/16 09:00 Constitutional: Yes: No Distress, Calm, Obese Cardiovascular: Yes: Regular Rate and Rhythm. No: Gallop, Murmur, Rub Respiratory: Yes: Regular, CTA Bilaterally. No: Rales, Rhonchi, Wheezes Gastrointestinal: Yes: Normal Bowel Sounds, Soft. No: Distention, Tenderness Extremities: Yes: WNL Edema: No Labs: CBC, BMP 12/29/16 06:00 12/30/16 07:15 INR, PTT INR 1.24 (0.82-1.09) H 12/17/16 23:30 Problem List - Problems (1) Sepsis Code(s): A41.9 - SEPSIS, UNSPECIFIED ORGANISM (2) Metabolic acidosis Code(s): E87.2 - ACIDOSIS (3) Urinary tract infection Code(s): N39.0 - URINARY TRACT INFECTION, SITE NOT SPECIFIED Qualifiers: Indwelling urinary catheter type: cystostomy catheter Encounter type: initial encounter (4) ARF (acute renal failure) Code(s): N17.9 - ACUTE KIDNEY FAILURE, UNSPECIFIED Qualifiers: Acute renal failure type: unspecified Qualified Code(s): N17.9 - Acute kidney failure, unspecified (5) Diabetes Code(s): E11.9 - TYPE 2 DIABETES MELLITUS WITHOUT COMPLICATIONS Qualifiers: Diabetes mellitus type: type 2 Diabetes mellitus complication status: with kidney complications Diabetes mellitus complication detail: with chronic kidney disease Chronic kidney disease stage: stage 3 (moderate) (6) Hypertension Code(s): I10 - ESSENTIAL (PRIMARY) HYPERTENSION Qualifiers: Hypertension type: essential hypertension Qualified Code(s): I10 - Essential (primary) hypertension Assessment/Plan (1) Sepsis Assessment/Plan -repeat blood cultures negative -resolved Code(s): A41.9 - SEPSIS, UNSPECIFIED ORGANISM Qualifiers: Qualified Code(s): A41.51 - Sepsis due to Escherichia coli [E. coli] (2) Metabolic acidosis Assessment/Plan: -nephrology following -bicarb increased -continue per nephrology recommendations Code(s): E87.2 - ACIDOSIS (3) Urinary tract infection Assessment/Plan: -urine culture growing esbl e.coli and providencii -continue ertapenem per ID -day Code(s): N39.0 - URINARY TRACT INFECTION, SITE NOT SPECIFIED Qualifiers: Indwelling urinary catheter type: cystostomy catheter Encounter type: initial encounter (4) ARF (acute renal failure) Assessment/Plan: -with CKD -baseline Code(s): N17.9 - ACUTE KIDNEY FAILURE, UNSPECIFIED Qualifiers: Acute renal failure type: unspecified Qualified Code(s): N17.9 - Acute kidney failure, unspecified (5) Diabetes Assessment/Plan: -improved control on levemir 20 units bid -monitor Code(s): E11.9 - TYPE 2 DIABETES MELLITUS WITHOUT COMPLICATIONS Qualifiers: Diabetes mellitus type: type 2 Diabetes mellitus complication status: with kidney complications Diabetes mellitus complication detail: with chronic kidney disease Chronic kidney disease stage: stage 3 (moderate) Qualified Code(s): E11.22 - Type 2 diabetes mellitus with diabetic chronic kidney disease; N18.1 - Chronic kidney disease, stage 1; Z79.4 - [employer] ( 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 of insulin (6) Hypertension Assessment/Plan: -continue cardura and hydralazine Code(s): I10 - ESSENTIAL (PRIMARY) HYPERTENSION Qualifiers: Hypertension type: essential hypertension Qualified Code(s): I10 - Essential (primary) hypertension Dispo -plan for discharge tomorrow
--- NOTE | 2016-12-30 16:00 | PN ---
Progress Note (short form) - Note Progress Note: Renal follow up for MEKA on CKD and Metabolic acidosis Pt seen and examined at the bedside no acute complaints Vital Signs Temperature 98.4 F 12/30/16 14:06 Pulse Rate 62 12/30/16 14:06 Respiratory Rate 16 12/30/16 14:06 Blood Pressure 134/76 12/30/16 14:06 O2 Sat by Pulse Oximetry (%) 97 12/30/16 09:00 Intake & Output 12/27/16 12/28/16 12/29/16 12/30/16 23:59 23:59 23:59 23:59 Intake Total 1770 0286 288 7423 Output Total 3300 2700 3400 3700 Balance -1530 -1650 -2600 -1300 Gen: NAD CVS: RRR, No M/R Lungs: CTA, no rales Abd: soft NT/ND Ext: Trace to 1+ edema : Cystostomy on left LLQ CBC, BMP 12/29/16 06:00 12/30/16 07:15 Current Medications Acetaminophen (Tylenol -) 650 mg PO Q6H PRN PRN Reason: FEVER OR PAIN Last Admin: 12/19/16 05:46 Dose: 650 mg Acetylcysteine (Mucomyst 20 Oral / Inh Use Only*) 1,000 mg NEB Q6H PRN PRN Reason: Congestion Aspirin (Asa -) 81 mg PO DAILY [facility] Last Admin: 12/30/16 09:17 Dose: 81 mg Atorvastatin Calcium (Lipitor -) 10 mg PO HS [facility] Last Admin: 12/29/16 21:13 Dose: 10 mg Cholecalciferol (Vitamin D3 -) 1,000 unit PO DAILY [facility] Last Admin: 12/30/16 09:16 Dose: 1,000 unit Cyanocobalamin (Vitamin B12 -) 1,000 mcg PO DAILY [facility] Last Admin: 12/30/16 09:15 Dose: 1,000 mcg Doxazosin Mesylate (Cardura -) 4 mg PO DAILY [facility] Last Admin: 12/30/16 09:15 Dose: 4 mg Furosemide (Lasix -) 40 mg PO DAILY [facility] Last Admin: 12/30/16 09:15 Dose: 40 mg Gabapentin (Neurontin -) 100 mg PO DAILY [facility] Last Admin: 12/30/16 09:18 Dose: 100 mg Hydralazine HCl (Apresoline -) 50 mg PO DAILY [facility] Last Admin: 12/30/16 09:16 Dose: 50 mg Ertapenem 1 gm/ Sodium (Chloride) 50 mls @ 100 mls/hr IVPB DAILY [facility] PRN Reason: Protocol Last Admin: 12/30/16 09:17 Dose: 100 mls/hr Insulin Aspart (Novolog Vial Sliding Scale -) 1 vial SQ ACHS [facility] PRN Reason: Protocol Last Admin: 12/30/16 12:34 Dose: 4 unit Insulin Detemir (Levemir Vial) 20 units SQ BID@0700,2200 [facility] Last Admin: 12/30/16 06:54 Dose: 20 units Multivitamins/Minerals/Vitamin C (Tab-A-Vit -) 1 tab PO DAILY [facility] Last Admin: 12/30/16 09:16 Dose: 1 tab Non-Formulary Medication (Fluticasone/Salmeterol [Advair Hfa 115-21 Mcg Inhaler] ) 1 inh PO BID [facility] Ondansetron HCl (Zofran Injection) 4 mg IVPB Q6H PRN PRN Reason: NAUSEA Pantoprazole Sodium (Protonix -) 40 mg PO DAILY [facility] Last Admin: 12/30/16 09:16 Dose: 40 mg Sodium Bicarbonate (Sodium Bicarbonate -) 1,300 mg PO BID [facility] Last Admin: 12/30/16 09:17 Dose: 1,300 mg A/P 65 year old gentleman with PMhx of CKD stage 4 (baseline Cr ~2.3-2.8), Bladder Ca s/p cystectomy with cystostomy, CVA, Hypertension, HLD, DM who presented with Chills and found to have UTI and MEKA on CKD. #Acute Renal Failure with Hx of CKD Renal function now at baseline continue lasix and titrate as needed to achieve evolemia #Non-anion gap metabolic acidosis continue sodium bicarbonate to 1300mg BID titrate to goal bicarb level of 22 #UTI/Leukocytosis continue Abx as per primary/ID #Hx of Hypertension on Christina Forbes DO
[2016-12-30] MEDS: ATORVASTATIN CA 10 MG TABLET (FP) PO SCH (22:43)
[2016-12-31] MEDS: INSULIN SLIDING SCALE (NOVOLOG) 1 VIAL SQ SCH ×2 (06:52→11:39)
[2016-12-31] MEDS: INSULIN DETEMIR 100 UNITS/ML MDV SQ SCH (06:52)
[2016-12-31 08:46] LABS: BASOPHIL 0.6 % (0-2.0); EOSINOPHIL 4.1 % (0-4.5); MCH 28.3 pg (25.7-33.7); MCHC 34.4 g/dl (32.0-35.9); MEAN CELL VOLUME 82.3 fl (80-96); MEAN PLT VOLUME 7.5 fl (7.5-11.1); PLATELET COUNT 365 K/MM3 (134-434); RDW 15.4 % (11.9-15.9); WHITE BLOOD COUNT 6.9 K/mm3 (4.0-10.0)
[2016-12-31 09:17] LABS: CALCIUM 9.3 mg/dL (8.5-10.1); COCKROFT - GAULT 52.92; CREATININE 2.5 mg/dL (0.7-1.3); MAGNESIUM 2.1 mg/dL (1.8-2.4); PHOSPHOROUS 3.4 mg/dL (2.5-4.9)
[2016-12-31] MEDS ORDERED: PT OWN MED DRAWER 7, Y5N ONE ×2 (10:44→10:49)
[2016-12-31] MEDS: SODIUM BICARBONATE 650 MG TABLET PO SCH (10:46)
[2016-12-31] MEDS: CYANOCOBALAMIN 1,000 MCG TABLET (FP) PO SCH (10:46)
[2016-12-31] MEDS: MULTIVITAMINS (DAILY MVI) TABLET (FP) PO SCH (10:46)
[2016-12-31] MEDS: ERTAPENEM SODIUM 1 GM in SODIUM CHLORIDE 50 ML IVPB SCH (10:46)
[2016-12-31] MEDS: FUROSEMIDE 40 MG TABLET (FP) PO SCH (10:47)
[2016-12-31] MEDS: CHOLECALCIFEROL (VITAMIN D3) 1,000 UNIT TABLET (FP) PO SCH (10:47)
[2016-12-31] MEDS: hydrALAZINE HCL 50 MG TABLET (FP) PO SCH (10:47)
[2016-12-31] MEDS: ASPIRIN 81 MG CHEWABLE TABLETS PO SCH (10:47)
[2016-12-31] MEDS: PANTOPRAZOLE 40 MG TABLET (FP) PO SCH (10:47)
[2016-12-31] MEDS: GABAPENTIN 100 MG CAPSULE (FP) PO SCH (10:47)
[2016-12-31] MEDS: DOXAZOSIN MESYLATE 4 MG TABLET PO SCH (10:50)
[2016-12-31] MEDS ORDERED: INSULIN (NOVOLOG) ASPART 100 UNITS/ML 10ML VIAL ONE (11:31)
[2016-12-31 12:47] VITALS: BP 151/86; PULSE 74; TEMP 98
--- NOTE | 2016-12-31 12:55 | DS ---
Physical Examination Vital Signs: Vital Signs Temperature 98.0 F 12/31/16 09:00 Pulse Rate 74 12/31/16 09:00 Respiratory Rate 18 12/31/16 09:00 Blood Pressure 151/86 12/31/16 09:00 O2 Sat by Pulse Oximetry (%) 98 12/31/16 09:00 Constitutional: Yes: No Distress, Calm, Obese Cardiovascular: Yes: Regular Rate and Rhythm. No: Gallop, Murmur, Rub Respiratory: Yes: Regular, CTA Bilaterally. No: Rales, Rhonchi, Wheezes Gastrointestinal: Yes: Normal Bowel Sounds, Soft. No: Distention, Tenderness Extremities: Yes: WNL Edema: No Labs: CBC, BMP 12/31/16 07:30 12/31/16 07:30 Discharge Summary Reason For Visit: UTI FEVER Current Active Problems Chronic kidney disease (Acute) Fever (Acute) Metabolic acidosis (Acute) Urinary tract infection (Acute) Hospital Course: (1) Sepsis Code(s): A41.9 - SEPSIS, UNSPECIFIED ORGANISM (2) Metabolic acidosis Code(s): E87.2 - ACIDOSIS (3) Urinary tract infection Code(s): N39.0 - URINARY TRACT INFECTION, SITE NOT SPECIFIED Qualifiers: Indwelling urinary catheter type: cystostomy catheter Encounter type: initial encounter (4) ARF (acute renal failure) Code(s): N17.9 - ACUTE KIDNEY FAILURE, UNSPECIFIED Qualifiers: Acute renal failure type: unspecified Qualified Code(s): N17.9 - Acute kidney failure, unspecified (5) Diabetes Code(s): E11.9 - TYPE 2 DIABETES MELLITUS WITHOUT COMPLICATIONS Qualifiers: Diabetes mellitus type: type 2 Diabetes mellitus complication status: with kidney complications Diabetes mellitus complication detail: with chronic kidney disease Chronic kidney disease stage: stage 3 (moderate) (6) Hypertension Code(s): I10 - ESSENTIAL (PRIMARY) HYPERTENSION Qualifiers: Hypertension type: essential hypertension Qualified Code(s): I10 - Essential (primary) hypertension Mr Isaacs is a very pleasant 66 year old male who came in with sepsis secondary to UTI causing bacteremia. He was also found to have ARF on CKD. He was admitted to the hospital and started on antibiotics. He was seen by both ID and nephrology. He finished a full course of ertapenem while here. He has a history of metabolic acidosis that was exacerbated by sepsis. He originally was maintained on bicarb gtt but was successfully transitioned to oral bicarb. Oral bicarb was increased this admission. Currently he is doing well and is without complaint. He is safe for discharge home. 31 minutes spent in preparation of this discharge Condition: Good - Instructions Diet, Activity, Other Instructions: diabetic diet. resume previous activity Referrals: Umang Howard MD [Primary Care Provider] - Freddie Forbes MD [Staff Physician] - Disposition: HOME - Home Medications Comprehensive Discharge Medication List: Ambulatory Orders Aspirin [Dianne Chewable Aspirin] 81 mg PO DAILY 07/30/15 Atorvastatin Ca [Lipitor] 10 mg PO HS 07/30/15 Doxazosin Mesylate 4 mg PO DAILY 07/30/15 Albuterol Sulfate [Proair Respiclick] 1 puff IH QID PRN 10/13/15 Ascorbate Calcium [Vitamin C] 500 mg PO DAILY 10/13/15 Beta-Carotene [Beta Carotene] 10,000 unit PO DAILY 10/13/15 Cholecalciferol (Vitamin D3) [Vitamin D3] 1,000 unit PO DAILY 10/13/15 Fluticasone/Salmeterol [Advair Hfa 115-21 Mcg Inhaler] 1 inh PO BID 10/13/15 Insulin Glargine,Hum.rec.anlog [Lantus (10mL VIAL) -] 0 units SQ ASDIR 10/13/15 Cyanocobalamin [Vitamin B12 -] 1,000 mcg PO DAILY 12/18/16 Gabapentin [Neurontin] 100 mg PO DAILY 12/18/16 Hydralazine HCl [Apresoline -] 50 mg PO DAILY 12/18/16 Multivitamins [Multivit ([facility] Formulary)] 1 tab PO DAILY 12/18/16 Furosemide [Lasix -] 40 mg PO DAILY #30 tablet 12/31/16 Sodium Bicarbonate - 1,300 mg PO BID #120 tablet 12/31/16
--- NOTE | 2016-12-31 13:22 | PN ---
Progress Note (short form) - Note Progress Note: Renal follow up for MEKA on CKD and Metabolic acidosis Pt seen and examined at the bedside no acute complaints for discharge home today Vital Signs Temperature 98.0 F 12/31/16 09:00 Pulse Rate 74 12/31/16 09:00 Respiratory Rate 18 12/31/16 09:00 Blood Pressure 151/86 12/31/16 09:00 O2 Sat by Pulse Oximetry (%) 98 12/31/16 09:00 Intake & Output 12/28/16 12/29/16 12/30/16 12/31/16 23:59 23:59 23:59 23:59 Intake Total 1677 045 5511 300 Output Total 2700 3400 6800 700 Balance -1650 -2600 -2450 -400 Gen: NAD CVS: RRR, No M/R Lungs: CTA, no rales Abd: soft NT/ND Ext: Trace to 1+ edema : Cystostomy on left LLQ CBC, BMP 12/31/16 07:30 12/31/16 07:30 Laboratory Tests 12/30/16 12/31/16 07:15 07:30 Calcium 9.4 9.3 Phosphorus 3.4 3.4 Magnesium 2.2 2.1 Current Medications Acetaminophen (Tylenol -) 650 mg PO Q6H PRN PRN Reason: FEVER OR PAIN Last Admin: 12/19/16 05:46 Dose: 650 mg Acetylcysteine (Mucomyst 20 Oral / Inh Use Only*) 1,000 mg NEB Q6H PRN PRN Reason: Congestion Aspirin (Asa -) 81 mg PO DAILY [facility] Last Admin: 12/31/16 10:47 Dose: 81 mg Atorvastatin Calcium (Lipitor -) 10 mg PO HS [facility] Last Admin: 12/30/16 22:43 Dose: 10 mg Cholecalciferol (Vitamin D3 -) 1,000 unit PO DAILY [facility] Last Admin: 12/31/16 10:47 Dose: 1,000 unit Cyanocobalamin (Vitamin B12 -) 1,000 mcg PO DAILY [facility] Last Admin: 12/31/16 10:46 Dose: 1,000 mcg Doxazosin Mesylate (Cardura -) 4 mg PO DAILY [facility] Last Admin: 12/31/16 10:50 Dose: 4 mg Furosemide (Lasix -) 40 mg PO DAILY [facility] Last Admin: 12/31/16 10:47 Dose: 40 mg Gabapentin (Neurontin -) 100 mg PO DAILY [facility] Last Admin: 12/31/16 10:47 Dose: 100 mg Hydralazine HCl (Apresoline -) 50 mg PO DAILY [facility] Last Admin: 12/31/16 10:47 Dose: 50 mg Ertapenem 1 gm/ Sodium (Chloride) 50 mls @ 100 mls/hr IVPB DAILY [facility] PRN Reason: Protocol Last Admin: 12/31/16 10:46 Dose: 100 mls/hr Insulin Aspart (Novolog Vial Sliding Scale -) 1 vial SQ ACHS [facility] PRN Reason: Protocol Last Admin: 12/31/16 11:39 Dose: 6 unit Insulin Detemir (Levemir Vial) 20 units SQ BID@0700,2200 [facility] Last Admin: 12/31/16 06:52 Dose: 20 units Multivitamins/Minerals/Vitamin C (Tab-A-Vit -) 1 tab PO DAILY [facility] Last Admin: 12/31/16 10:46 Dose: 1 tab Non-Formulary Medication (Fluticasone/Salmeterol [Advair Hfa 115-21 Mcg Inhaler] ) 1 inh PO BID [facility] Ondansetron HCl (Zofran Injection) 4 mg IVPB Q6H PRN PRN Reason: NAUSEA Pantoprazole Sodium (Protonix -) 40 mg PO DAILY [facility] Last Admin: 12/31/16 10:47 Dose: 40 mg Sodium Bicarbonate (Sodium Bicarbonate -) 1,300 mg PO BID [facility] Last Admin: 12/31/16 10:46 Dose: 1,300 mg A/P 65 year old gentleman with PMhx of CKD stage 4 (baseline Cr ~2.3-2.8), Bladder Ca s/p cystectomy with cystostomy, CVA, Hypertension, HLD, DM who presented with Chills and found to have UTI and MEKA on CKD. #Acute Renal Failure with Hx of CKD Renal function now at baseline to follow up with Dr. Kirkland as an outpatient in 2-4 weeks #Non-anion gap metabolic acidosis secondary to urethral diversion continue sodium bicarbonate 1300mg BID #UTI/Leukocytosis continue Abx as per primary/ID #Hx of Hypertension on Christina Forbes DO
--- NOTE | 2016-12-31 13:41 | PN ---
Progress Note, Physician History of Present Illness: stable doing well no new issues - Current Medication List Current Medications: Active Medications Acetaminophen (Tylenol -) 650 mg PO Q6H PRN PRN Reason: FEVER OR PAIN Last Admin: 12/19/16 05:46 Dose: 650 mg Acetylcysteine (Mucomyst 20 Oral / Inh Use Only*) 1,000 mg NEB Q6H PRN PRN Reason: Congestion Aspirin (Asa -) 81 mg PO DAILY [facility] Last Admin: 12/31/16 10:47 Dose: 81 mg Atorvastatin Calcium (Lipitor -) 10 mg PO HS [facility] Last Admin: 12/30/16 22:43 Dose: 10 mg Cholecalciferol (Vitamin D3 -) 1,000 unit PO DAILY [facility] Last Admin: 12/31/16 10:47 Dose: 1,000 unit Cyanocobalamin (Vitamin B12 -) 1,000 mcg PO DAILY [facility] Last Admin: 12/31/16 10:46 Dose: 1,000 mcg Doxazosin Mesylate (Cardura -) 4 mg PO DAILY [facility] Last Admin: 12/31/16 10:50 Dose: 4 mg Furosemide (Lasix -) 40 mg PO DAILY [facility] Last Admin: 12/31/16 10:47 Dose: 40 mg Gabapentin (Neurontin -) 100 mg PO DAILY [facility] Last Admin: 12/31/16 10:47 Dose: 100 mg Hydralazine HCl (Apresoline -) 50 mg PO DAILY [facility] Last Admin: 12/31/16 10:47 Dose: 50 mg Ertapenem 1 gm/ Sodium (Chloride) 50 mls @ 100 mls/hr IVPB DAILY [facility] PRN Reason: Protocol Last Admin: 12/31/16 10:46 Dose: 100 mls/hr Insulin Aspart (Novolog Vial Sliding Scale -) 1 vial SQ ACHS [facility] PRN Reason: Protocol Last Admin: 12/31/16 11:39 Dose: 6 unit Insulin Detemir (Levemir Vial) 20 units SQ BID@0700,2200 [facility] Last Admin: 12/31/16 06:52 Dose: 20 units Multivitamins/Minerals/Vitamin C (Tab-A-Vit -) 1 tab PO DAILY [facility] Last Admin: 12/31/16 10:46 Dose: 1 tab Non-Formulary Medication (Fluticasone/Salmeterol [Advair Hfa 115-21 Mcg Inhaler] ) 1 inh PO BID [facility] Ondansetron HCl (Zofran Injection) 4 mg IVPB Q6H PRN PRN Reason: NAUSEA Pantoprazole Sodium (Protonix -) 40 mg PO DAILY [facility] Last Admin: 12/31/16 10:47 Dose: 40 mg Sodium Bicarbonate (Sodium Bicarbonate -) 1,300 mg PO BID [facility] Last Admin: 12/31/16 10:46 Dose: 1,300 mg - Objective Vital Signs: Vital Signs Temperature 98.0 F 12/31/16 09:00 Pulse Rate 74 12/31/16 09:00 Respiratory Rate 18 12/31/16 09:00 Blood Pressure 151/86 12/31/16 09:00 O2 Sat by Pulse Oximetry (%) 98 12/31/16 09:00 Constitutional: Yes: No Distress, Calm, Obese Cardiovascular: Yes: Regular Rate and Rhythm Respiratory: Yes: Regular, CTA Bilaterally Gastrointestinal: Yes: Normal Bowel Sounds, Soft Musculoskeletal: Yes: WNL Extremities: Yes: WNL Neurological: Yes: Alert, Oriented Psychiatric: Yes: Alert, Oriented Labs: CBC, BMP 12/31/16 07:30 12/31/16 07:30 INR, PTT INR 1.24 (0.82-1.09) H 12/17/16 23:30 Assessment/Plan Problems (1) Sepsis Code(s): A41.9 - SEPSIS, UNSPECIFIED ORGANISM (2) Metabolic acidosis Code(s): E87.2 - ACIDOSIS (3) Urinary tract infection Code(s): N39.0 - URINARY TRACT INFECTION, SITE NOT SPECIFIED Qualifiers: Indwelling urinary catheter type: cystostomy catheter Encounter type: initial encounter (4) ARF (acute renal failure) Code(s): N17.9 - ACUTE KIDNEY FAILURE, UNSPECIFIED Qualifiers: Acute renal failure type: unspecified Qualified Code(s): N17.9 - Acute kidney failure, unspecified (5) Diabetes Code(s): E11.9 - TYPE 2 DIABETES MELLITUS WITHOUT COMPLICATIONS Qualifiers: Diabetes mellitus type: type 2 Diabetes mellitus complication status: with kidney complications Diabetes mellitus complication detail: with chronic kidney disease Chronic kidney disease stage: stage 3 (moderate) (6) Hypertension Code(s): I10 - ESSENTIAL (PRIMARY) HYPERTENSION Qualifiers: Hypertension type: essential hypertension Qualified Code(s): I10 - Essential (primary) hypertension gm negative bacteremia plan last dose today completed patient doing well no new issues rest as per primary
== END 2016-12-31 13:44 | disposition home or self-care (01) | DRG 872 ==
LOC: JER 19:44 → JERBED 12-18 01:16 → J5S 12-18 06:04 → J8W 12-23 16:59
PROVIDERS: ADMIT Specialist; ATTEND Specialist
PROC: 0JPT0XZ Removal of Tunneled Vascular Access Device from Trunk Subcutaneous Tissue and Fascia, Open Approach (ICD-10-PCS; principal; 2016-12-19)
DX: A41.51 Sepsis due to Escherichia coli [E. coli] (principal); N17.9 Acute kidney failure, unspecified; N39.0 Urinary tract infection, site not specified; N18.4 Chronic kidney disease, stage 4 (severe); E87.2 Acidosis; Z68.42 Body mass index [BMI] 45.0-49.9, adult; E11.22 Type 2 diabetes mellitus with diabetic chronic kidney disease; I12.9 Hypertensive chronic kidney disease with stage 1 through stage 4 chronic kidney disease, or unspecified chronic kidney disease; Z79.4 Long term (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 of insulin; Z85.51 Personal history of malignant neoplasm of bladder; E78.00 Pure hypercholesterolemia, unspecified; E66.9 Obesity, unspecified; Z71.3 Dietary counseling and surveillance
CPT/HCPCS: 36415; 36590; 36600; 71020-TC; 77001-TC; 80048; 80053; 81003; 81015; 82436; 82550; 82570; 82803; 83605; 83690; 83735; 83880; 84100; 84133; 84156; 84300; 84484; 84550; 85025; 85610; 87040; 87070; 87086; 87186; 87205; 93005; 93010; 99282-25; 99285-25

== ENCOUNTER 2017-06-07 16:32 | Inpatient (IN) | payer OTHER ==
--- NOTE | 2017-06-07 16:51 | PDOC ---
History of Present Illness - General History Source: Patient Exam Limitations: No Limitations - History of Present Illness Initial Comments: 06/07/17 17:36 The patient is a 66 year old male with significant past medical history of insulin dependent diabetes, HTN, HLD, bladder CA with a urostomy s/p cystectomy (06/02), CVA x 2, and CKD who presents to the ED with complaints of dyspnea for several months. The patient reports shortness of breath and rapid breathing. He states he sa his PMD last month and was provided with inhalers with slight relief. Patient reports for the past few days his symptoms have progressively worsened the last few days. The patient also reports multiple episodes of loose stools and increased gas. Denies fever or chills. Denies abdominal pain or vomiting. Denies dysuria or change in urinary output. Denies any other symptoms. Surgical hx: Uroscopy 2014, knee surgery <Nuvia Delacruz - Last Filed: 06/07/17 22:05> <Itzel June - Last Filed: 06/08/17 02:16> - General Chief Complaint: Respiratory Stated Complaint: COUGHING Time Seen by Provider: 06/07/17 16:51 Past History <Nuvia Delacruz - Last Filed: 06/07/17 22:05> - Past Medical History Anemia: No Asthma: No Cancer: Yes (BLADDER CA W/REMOVAL AND UROSTOMY) Cardiac Disorders: ([facility] AT [facility]) CVA: Yes (2013) COPD: No CHF: No Dementia: No Diabetes: Yes Dialysis: No GI Disorders: No Disorders: Yes HTN: Yes Hypercholesterolemia: Yes Liver Disease: No Seizures: No Thyroid Disease: No - Surgical History Abdominal Surgery: Yes (BLADDER REMOVED 05/2014 -UROSTOMY) Appendectomy: No Cardiac Surgery: No Cholecystectomy: No Lung Surgery: No Neurologic Surgery: No Orthopedic Surgery: Yes (left knee sx) - Immunization History Immunization Up to Date: Yes (FLU AND PNA UP TO DATE) - Suicide/Smoking/Psychosocial Hx Smoking Status: No Smoking History: Never smoked Have you smoked in the past 12 months: No If you are a former smoker, when did you quit?: 40 YRS AGO Hx Alcohol Use: No Drug/Substance Use Hx: No Substance Use Type: None Hx Substance Use Treatment: No <Itzel Juen - Last Filed: 06/08/17 02:16> - Past Medical History Allergies/Adverse Reactions: Allergies Allergy/AdvReac Type Severity Reaction Status Date / Time shrimp Allergy Intermediate Vomiting Verified 06/07/17 16:48 Home Medications: Ambulatory Orders Aspirin [Dianne Chewable] 81 mg PO DAILY 06/07/17 Atorvastatin Ca [Lipitor] 10 mg PO HS 06/07/17 Cholecalciferol (Vitamin D3) [Vitamin D3] 2,000 unit PO DAILY 06/07/17 Cyanocobalamin [Vitamin B12 -] 1,000 mcg PO DAILY 06/07/17 Doxazosin Mesylate [Cardura -] 4 mg PO DAILY 06/07/17 Furosemide [Lasix -] 40 mg PO DAILY 06/07/17 Hydralazine HCl [Apresoline -] 50 mg PO BID 06/07/17 Multivitamin [One Daily] 1 each PO DAILY 06/07/17 Pantoprazole Sodium [Protonix] 40 mg PO BID 06/07/17 Salmeterol/Fluticasone [Advair 100Mcg/50Mcg -] 1 inh IH DAILY 06/07/17 Sodium Bicarbonate 10 gm PO BID 06/07/17 Review of Systems - Review of Systems Able to Perform ROS?: Yes Comments:: 06/07/17 17:37 CONSTITUTIONAL: No reported: Fever, Chills, Diaphoresis, Generalized Weakness, Malaise, Loss of Appetite HEENT: No reported: Rhinorrhea, Nasal Congestion, Throat Pain, Throat Swelling, Difficulty Swallowing, Mouth Swelling, Ear Pain, Eye Pain, Visual Changes CARDIOVASCULAR: No reported: Chest Pain, Syncope, Palpitations, Irregular Heart Rate, Lightheadedness, Peripheral Edema RESPIRATORY: + shortness of breath, dyspnea No reported: Cough, Shortness of Breath, SOB with Exertion, Orthopnea, Wheezing , Stridor, Hemoptysis GASTROINTESTINAL: + loose stool, increased gas No reported: Abdominal pain, Abdominal Distension, Nausea, Vomiting, Constipation, Melena, Hematochezia GENITOURINARY: No reported: Dysuria, Frequency, Urgency, Hesitancy, Flank Pain, Genital Pain MUSCULOSKELETAL: No reported: Myalgia, Arthralgia, Joint Swelling, Back pain, Neck Pain SKIN: No reported: Rash, Itching, Pallor HEMEATOLOGIC/IMMUNOLOGIC: No reported: Easy Bleeding, Easy Bruising, Lymphadenopathy, Frequent infections ENDOCRINE: No reported: Unexplained Weight Gain, Unexplained Weight Loss, Heat Intolerance , Cold Intolerance NEUROLOGIC: No reported: Headache, Focal Weakness, Paresthesias, Vertigo, Lightheadedness, Unsteady Gait, Seizure, Mental Status Changes, Incontinence PSYCHIATRIC: No reported: Anxiety, Depression All Other Systems: Reviewed and Negative <Nuvia Delacruz - Last Filed: 06/07/17 22:05> *Physical Exam - Vital Signs Last Vital Signs Temp Pulse Resp BP Pulse Ox 98.0 F 92 H 26 H 150/87 98 06/07/17 16:44 06/07/17 16:44 06/07/17 16:44 06/07/17 16:44 06/07/17 16:44 - Physical Exam Comments: 06/07/17 17:37 GENERAL: + obese. The patient is awake, alert, and fully oriented, Nontoxic - in no acute distress. HEAD: Normocephalic, atraumatic. EYES: extraocular movements intact, sclera anicteric, conjunctiva clear. ENT: Normal voice, Moist mucous membranes. NECK: Normal range of motion, supple LUNGS: + scattered expiratory wheeze in lower bases, rapid breathing. no rhonchi , no rales. HEART: Regular rate and rhythm, without murmur, rub or gallop. ABDOMEN: + Purulent belly. Soft, nontender, normoactive bowel sounds. No guarding, no rebound.No CVA tenderness EXTREMITIES: + 2+ pitting edema chronic venous stasis with discoloration in the lower extremities bilaterally. Normal range of motion, no edema. No clubbing or cyanosis. No cords, erythema, or tenderness. NEUROLOGICAL: No facial assymetry, Normal speech, PSYCH: Normal mood, normal affect. SKIN: Warm, Dry, normal turgor, <Nuvia Delacruz - Last Filed: 06/07/17 22:05> - Vital Signs Last Vital Signs Temp Pulse Resp BP Pulse Ox 98.0 F 92 H 26 H 150/87 98 06/07/17 16:44 06/07/17 16:44 06/07/17 16:44 06/07/17 16:44 06/07/17 16:44 <Itzel June - Last Filed: 06/08/17 02:16> ED Treatment Course - LABORATORY CBC & Chemistry Diagram: 06/07/17 18:00 06/07/17 18:00 <Nuvia Delacruz - Last Filed: 06/07/17 22:05> - LABORATORY CBC & Chemistry Diagram: 06/07/17 18:00 06/07/17 18:00 <Itzel June - Last Filed: 06/08/17 02:16> Medical Decision Making - Medical Decision Making 06/07/17 22:[address] Aden, covering for Dr. Howard, at 22:05 <Nuvia Delacruz - Last Filed: 06/07/17 22:05> - Medical Decision Making 06/07/17 22:26 This is a 66-year-old male who presents with increased respiratory rate, feeling like he has difficulty breathing over the past few weeks. Patient does not have fever and he is not hypoxic. Morbidly obese 66-year-old gentleman with some scant expiratory wheezing upon arrival was treated with bronchodilators and steroids. Chest x-ray did not show any infiltrates or areas of consolidation. CBC was essentially within normal limits. EKG did not show any changes from prior EKG was normal sinus rhythm with LVH and some PVCs. Cardiac enzyme is negative with troponin 0.02 BNP is close to 71 Patient is on Lasix. However, he has no rales on his lung exam and does not appear to be in CHF. ABG is significant for a non-anion gap metabolic acidosis. Anion gap is 11. ABG 7.22, PCO2 equal to 28, PO2 equal to 98, bicarbonate equal to 11, O2 sat is 96%. Patient does take sodium bicarbonate every day and states that he took his sodium bicarbonate today creatinine of 3.8. CASE DISCUSSED W general contractor Dr Forbes and will pit 150 devin sodium bicarb in 1 L D5W and run it at 84cc/hour pt has non anion gap metabolic acidosis/will be started on bicarb drip and admitted to telemetry 06/08/17 02:13 <Itzel June - Last Filed: 06/08/17 02:16> *DC/Admit/Observation/Transfer - Attestations Scribe Attestion: 06/07/17 17:37 Documentation prepared by Nuvia Delacruz, acting as mobile paramedical examiner for Itzel June MD <Nuvia Delacruz - Last Filed: 06/07/17 22:05> - Discharge Dispostion Admit: Yes <Itzel June - Last Filed: 06/08/17 02:16> Diagnosis at time of Disposition: Metabolic acidosis, Hypoglycemia Diabetes Qualifiers: Diabetes mellitus type: type 2 Diabetes mellitus complication status: with kidney complications Diabetes mellitus complication detail: with chronic kidney disease 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
[2017-06-07] MEDS ORDERED: predniSONE 20 MG TABLET (UD) PO ONE (17:33)
[2017-06-07 18:14] LABS: BASOPHIL 0.6 % (0-2.0); EOSINOPHIL 6.8 % (0-4.5); MCH 27.1 pg (25.7-33.7); MCHC 33.4 g/dl (32.0-35.9); MEAN CELL VOLUME 81.4 fl (80-96); MEAN PLT VOLUME 7.4 fl (7.5-11.1); NEUTROPHILS 65.6 % (42.8-82.8); PLATELET COUNT 276 K/MM3 (134-434); RDW 15.2 % (11.9-15.9); WHITE BLOOD COUNT 10.3 K/mm3 (4.0-10.0)
[2017-06-07] MEDS: ALBUTEROL SO4 0.083% IH SOL 2.5 MG/3 ML VIAL.NEB. NEB PRN (18:15)
[2017-06-07] MEDS ORDERED: predniSONE 20 MG TABLET (UD) ONE (18:18)
[2017-06-07] MEDS ORDERED: ALBUTEROL SO4 0.083% IH SOL 2.5 MG/3 ML VIAL.NEB. NEB ONE ×2 (18:18→18:19)
[2017-06-07 18:33] LABS: INR 1.07 (0.82-1.09); PROTHROMBIN TIME (PATIENT) 12.1 SEC (9.98-11.88)
[2017-06-07 18:43] LABS: ALBUMIN 3.6 g/dl (3.4-5.0); ALK PHOS 86 U/L (45-117); ANION GAP 11 (8-16); BILIRUBIN,TOTAL 0.3 mg/dL (0.2-1.0); CALCIUM 8.7 mg/dL (8.5-10.1); CO2 13 mmol/L (21-32); CPK 573 IU/L (39-308); CREATININE 3.8 mg/dL (0.7-1.3); GLUCOSE,RANDOM 52 mg/dL (74-106); SGOT/AST 29 U/L (15-37); SGPT/ALT 37 U/L (12-78); TOT PROT 8.3 g/dl (6.4-8.2); TROPONIN I < 0.02 ng/ml (0.00-0.05)
[2017-06-07 20:17] LABS: ARTERIAL BLD GAS O2 SATURATION 96.3 % (90-98.9); ARTERIAL BLOOD GAS PO2 97.9 mmHg (80-100)
[2017-06-07 20:21] LABS: ARTERIAL BLOOD GAS pH 7.22 (7.35-7.45)
[2017-06-07 20:22] LABS: ARTERIAL BLOOD GAS BASE EXCESS -15.5 meq/l (-2-2); ARTERIAL BLOOD GAS HCO3 10.9 meq/L (22-26)
[2017-06-07 20:23] LABS: ALLENS TEST POSITIVE; ART PUNCT SITE RIGHT RADIAL; PT. ON O2? NO
[2017-06-07 22:35] LABS: URINE APPEARANCE SLCLOUDY; URINE BILIRUBIN NEGATIVE (NEGATIVE); URINE BLOOD NEGATIVE (NEGATIVE); URINE COLOR LTYELLOW; URINE GLUCOSE (UA) NEGATIVE (NEGATIVE); URINE KETONE NEGATIVE (NEGATIVE); URINE NITRITE NEGATIVE (NEGATIVE); URINE PROTEIN NEGATIVE (NEGATIVE); URINE UROBILINOGEN NEGATIVE mg/dL (0.2-1.0)
[2017-06-07] MEDS ORDERED: *DONT ORDER IVPB STA (23:05)
[2017-06-07] MEDS ORDERED: SODIUM BICARBONATE 8.4% 50 MEQ/50 ML VIAL IV ONE (23:20)
[2017-06-07] MEDS ORDERED: DEXTROSE 5%-WATER - 1,000 ML with SODIUM BICARBONATE 8.4% - 150 MEQ IV SCH (23:30)
[2017-06-08 03:58] VITALS: BMI 44.3
[2017-06-08] MEDS ORDERED: INSULIN (NOVOLOG) ASPART 100 UNITS/ML 10ML VIAL ONE ×3 (06:26→14:54)
[2017-06-08 06:35] LABS: BASOPHIL 0.2 % (0-2.0); MCH 27.6 pg (25.7-33.7); MCHC 33.6 g/dl (32.0-35.9); MEAN CELL VOLUME 81.9 fl (80-96); MEAN PLT VOLUME 8.2 fl (7.5-11.1); NEUTROPHILS 93.2 % (42.8-82.8); PLATELET COUNT 292 K/MM3 (134-434); RDW 15.5 % (11.9-15.9); WHITE BLOOD COUNT 8.5 K/mm3 (4.0-10.0)
[2017-06-08] MEDS ORDERED: INSULIN (NOVOLOG) ASPART 100 UNITS/ML 10ML VIAL SQ ONE ×2 (06:45→09:30)
[2017-06-08] MEDS: hydrALAZINE HCL 50 MG TABLET (FP) PO SCH ×2 (06:49→21:23)
[2017-06-08] MEDS ORDERED: INSULIN SLIDING SCALE (NOVOLOG) 1 VIAL SQ SCH (07:00)
[2017-06-08 07:26] LABS: ANION GAP 11 (8-16); CALCIUM 8.6 mg/dL (8.5-10.1); CO2 15 mmol/L (21-32)
[2017-06-08 07:40] LABS: GLUCOSE,RANDOM 420 mg/dL (74-106)
[2017-06-08] MEDS ORDERED: HEMOQUE TEST 1 EACH EACH ONE (07:49)
[2017-06-08] MEDS ORDERED: PT OWN MED DRAWER 7, Y5N ONE ×3 (09:09→15:03)
[2017-06-08] MEDS: MULTIVITAMINS (DAILY MVI) TABLET (FP) PO SCH (09:27)
[2017-06-08] MEDS: ASPIRIN 81 MG CHEWABLE TABLETS PO SCH (09:27)
[2017-06-08] MEDS: HEPARIN NA (PORCINE) 5,000 UNITS/ML 1ML VIAL SQ SCH ×2 (09:27→21:23)
[2017-06-08] MEDS: PANTOPRAZOLE 40 MG TABLET (FP) PO SCH ×2 (09:27→21:23)
[2017-06-08] MEDS: CHOLECALCIFEROL (VITAMIN D3) 1,000 UNIT TABLET (FP) PO SCH (09:27)
--- NOTE | 2017-06-08 09:39 | CON.NEP ---
Consult Consult Specialty:: Nephrology Referred by:: Dr. Howard Reason for Consultation:: Acute Kidney Injury/Metabolic Acidosis - History of Present Illness Chief Complaint: SOB History of Present Illness: This is a 66 year old gentleman with PMhx of CKD Stage 5 (Baseline Cr ~2.8), Bladder Ca s/p Cystectomy with cystostomy, CVA, Hypertension, HLD, DM who presented with compalints of SOB and found to have MEKA and Metabolic acidosis. Pt reports having a cough for several weeks. No fevers. Pt has yellow and clear urine coming from th the cystostomy. No N/V. Reports soft stools but diarrhea. No flank pain. Has very mild perumbilical pain. No rash. Reports taking bicarbonate at home. No recent Abx use. 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: CVA Cardio/Vascular: Yes: HTN, Hyperlipdemia Renal/: Yes: Renal Inusuff, Other (lucy durand) Endocrine: Yes: Diabetes Mellitus - Past Surgical History Past Surgical History: Yes: Cystectomy (05/2014) - Alcohol/Substance Use Hx Alcohol Use: No History of Substance Use: reports: None - Smoking History Smoking history: Former smoker Have you smoked in the past 12 months: No If you are a former smoker, when did you quit?: 40 YRS AGO - Social History Usual Living Arrangement: Alone ADL: Independent 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 History of Recent Travel: No Home Medications - Allergies Allergies/Adverse Reactions: Allergies Allergy/AdvReac Type Severity Reaction Status Date / Time shrimp Allergy Intermediate Vomiting Verified 06/07/17 16:48 - Home Medications Home Medications: Ambulatory Orders Aspirin [Dianne Chewable] 81 mg PO DAILY 06/07/17 Atorvastatin Ca [Lipitor] 10 mg PO HS 06/07/17 Cholecalciferol (Vitamin D3) [Vitamin D3] 2,000 unit PO DAILY 06/07/17 Cyanocobalamin [Vitamin B12 -] 1,000 mcg PO DAILY 06/07/17 Doxazosin Mesylate [Cardura -] 4 mg PO DAILY 06/07/17 Furosemide [Lasix -] 40 mg PO DAILY 06/07/17 Hydralazine HCl [Apresoline -] 50 mg PO BID 06/07/17 Multivitamin [One Daily] 1 each PO DAILY 06/07/17 Pantoprazole Sodium [Protonix] 40 mg PO BID 06/07/17 Salmeterol/Fluticasone [Advair 100Mcg/50Mcg -] 1 inh IH DAILY 06/07/17 Sodium Bicarbonate 10 gm PO BID 06/07/17 Family Disease History - Family Disease History Family Disease History: Diabetes: Mother, CA: Father Review of Systems - Review of Systems Constitutional: reports: No Symptoms Eyes: reports: No Symptoms HENT: reports: No Symptoms Neck: reports: No Symptoms Cardiovascular: reports: Shortness of Breath. denies: Chest Pain, Edema, Palpitations Respiratory: reports: Cough, SOB, SOB on Exertion. denies: Orthopnea, PND, Wheezing Gastrointestinal: reports: Abdominal Pain. denies: Diarrhea, Melena, Nausea, Rectal Bleeding, Vomiting Genitourinary: denies: Burning, Discharge, Dysuria, Flank Pain Musculoskeletal: reports: No Symptoms Integumentary: reports: No Symptoms Neurological: reports: No Symptoms Nephrology Consult - Height Height: 5 ft 7 in - Weight Weight: 128.367 kg - BMI Body Mass Index (BMI): 44.3 - Lab Results CBC,BMP: CBC, BMP 06/08/17 05:25 06/08/17 05:25 Anion Gap: Anion Gap Anion Gap 11 (8-16) 06/08/17 05:25 - Imaging Chest X-ray: Report Reviewed - Physical Examination Vital Signs: Vital Signs Temperature 97.7 F 06/08/17 06:00 Pulse Rate 86 06/08/17 06:00 Respiratory Rate 22 06/08/17 06:00 Blood Pressure 177/91 06/08/17 06:00 O2 Sat by Pulse Oximetry (%) 97 06/08/17 03:40 Constitutional: Yes: Well Nourished, No Distress, Calm Eyes: Yes: Conjunctiva Clear, EOM Intact HENT: Yes: Atraumatic Neck: Yes: Supple Cardiovascular: Yes: Regular Rate and Rhythm Respiratory: Yes: Regular, CTA Bilaterally Gastrointestinal: Yes: Normal Bowel Sounds, Soft, Abdomen, Obese. No: Distention, Tenderness Renal/: Yes: Wells Present. No: Anuria, Bladder Distention, CVA Tenderness - Left, CVA Tenderness - Right Edema: Yes Edema: LLE: Trace, RLE: Trace Neurological: Yes: Alert, Oriented Assessment/Plan 66 year old gentleman with PMhx of CKD Stage 5 (Baseline Cr ~2.8), Bladder Ca s/ p Cystectomy with cystostomy, CVA, Hypertension, HLD, DM who presented with compalints of SOB and found to have MEKA and Metabolic acidosis. #Acute on Chronic Renal Insufficiency Etiology unclear, differential includes volume depletion vs. obstruction vs. 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 Continue sodium bicarb gtt, increase rate to 100cc pt with appropriate respiratory compensation Trend serum bicarb level will need to clarify oral bicarbonate dose, 10g seems too high #SOB/Cough CXR w/o any pathology #Hypertension BP is above goal Continue Hydralazine add Amlodipne 5mg titrate meds to goal BP < 140/90 Thank you Will follow Freddie Forbes DO Current Medications Albuterol Sulfate (Ventolin 0.083% Nebulizer Soln -) 1 amp NEB Q15M PRN PRN Reason: Dyspnea Last Admin: 06/07/17 18:15 Dose: 1 amp Aspirin (Asa -) 81 mg PO DAILY [facility] Last Admin: 06/08/17 09:27 Dose: 81 mg Atorvastatin Calcium (Lipitor -) 10 mg PO HS [facility] Cholecalciferol (Vitamin D3 -) 2,000 unit PO DAILY [facility] Last Admin: 06/08/17 09:27 Dose: 2,000 unit Cyanocobalamin (Vitamin B12 -) 1,000 mcg PO DAILY [facility] Doxazosin Mesylate (Cardura -) 4 mg PO DAILY [facility] Heparin Sodium (Porcine) (Heparin -) 5,000 unit SQ BID [facility] Last Admin: 06/08/17 09:27 Dose: 5,000 unit Hydralazine HCl (Apresoline -) 50 mg PO BID [facility] Last Admin: 06/08/17 06:49 Dose: 50 mg Sodium Bicarbonate 150 meq/ (Dextrose) 1,150 mls @ 84 mls/hr IV ASDIR [facility] Last Admin: 06/08/17 01:00 Dose: 84 mls/hr Insulin Aspart (Novolog Vial Sliding Scale -) 1 vial SQ TIDAC [facility] PRN Reason: Protocol Last Admin: 06/08/17 06:51 Dose: Not Given Multivitamins/Minerals/Vitamin C (Tab-A-Vit -) 1 tab PO DAILY [facility] Last Admin: 06/08/17 09:27 Dose: 1 tab Pantoprazole Sodium (Protonix -) 40 mg PO BID [facility] Last Admin: 06/08/17 09:27 Dose: 40 mg Fluticasone/Salmeterol (Advair 100mcg/50mcg -) 1 puff IH DAILY [facility] Sodium Bicarbonate (Sodium Bicarbonate -) 10,000 mg PO BID [facility]
[2017-06-08] MEDS ORDERED: SODIUM BICARBONATE 325 MG TABLET PO SCH (10:00)
[2017-06-08] MEDS: amLODIPine BESYLATE 5 MG TABLET (FP) PO SCH (10:14)
[2017-06-08] MEDS: DOXAZOSIN MESYLATE 4 MG TABLET PO SCH (10:14)
[2017-06-08] MEDS: FLUTICASONE/SALMETEROL 100 MCG/50 MCG DISKUS IH SCH (10:14)
[2017-06-08] MEDS: SODIUM BICARBONATE 8.4% - 150 MEQ in DEXTROSE 5%-WATER - 1,000 ML IV SCH ×2 (10:15→21:13)
--- NOTE | 2017-06-08 10:46 | HP ---
Admitting History and Physical - Primary Care Physician PCP: Umang Howard - Admission Chief Complaint: I was having trouble breathing History of Present Illness: Mr Isaacs is a very pleasant 66 year old male who comes in with shortness of breath and productive cough. He says this began a couple of months ago, he saw Dr Howard and was started on Advair. He said he improved, however in the last two weeks he noticed that he was getting worse. He says he began to cough again and it was productive. He was short of breath both on exertion and at rest, however it was made worse with coughing. He heard wheezing with his breathing as well. It steadily worsened until he was so short of breath he needed to come here for further treatment. He denies fevers, chills, lightheadedness, dizziness, passing out, chest pressure, nausea, vomiting, diarrhea, constipation, or swelling. He says he is still coughing and short of breath but feels improved. 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: CVA Cardiovascular: Yes: HTN, Hyperlipdemia Renal/: Yes: Renal Inusuff, Other (lucy durand) Endocrine: Yes: Diabetes Mellitus - Past Surgical History Past Surgical History: Yes: Cystectomy (05/2014) - Smoking History Smoking history: Former smoker Have you smoked in the past 12 months: No If you are a former smoker, when did you quit?: 40 YRS AGO - Alcohol/Substance Use Hx Alcohol Use: No History of Substance Use: reports: None - Social History Usual Living Arrangement: Yes: Alone ADL: Independent 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 History of Recent Travel: No Home Medications - Allergies Allergies/Adverse Reactions: Allergies Allergy/AdvReac Type Severity Reaction Status Date / Time shrimp Allergy Intermediate Vomiting Verified 06/07/17 16:48 - Home Medications Home Medications: Ambulatory Orders Aspirin [Dianne Chewable] 81 mg PO DAILY 06/07/17 Atorvastatin Ca [Lipitor] 10 mg PO HS 06/07/17 Cholecalciferol (Vitamin D3) [Vitamin D3] 2,000 unit PO DAILY 06/07/17 Cyanocobalamin [Vitamin B12 -] 1,000 mcg PO DAILY 06/07/17 Doxazosin Mesylate [Cardura -] 4 mg PO DAILY 06/07/17 Furosemide [Lasix -] 40 mg PO DAILY 06/07/17 Hydralazine HCl [Apresoline -] 50 mg PO BID 06/07/17 Multivitamin [One Daily] 1 each PO DAILY 06/07/17 Pantoprazole Sodium [Protonix] 40 mg PO BID 06/07/17 Salmeterol/Fluticasone [Advair 100Mcg/50Mcg -] 1 inh IH DAILY 06/07/17 Sodium Bicarbonate 10 gm PO BID 06/07/17 Family Disease History - Family Disease History Family Disease History: Diabetes: Mother, CA: Father Review of Systems Findings/Remarks: Full review of systems obtained, as per HPI and otherwise negative Physical Examination Vital Signs: Vital Signs Temperature 36.5 C 06/08/17 06:00 Pulse Rate 86 06/08/17 06:00 Respiratory Rate 22 06/08/17 09:00 Blood Pressure 177/91 06/08/17 06:00 O2 Sat by Pulse Oximetry (%) 97 06/08/17 09:00 Constitutional: Yes: No Distress, Calm, Obese Eyes: Yes: Conjunctiva Clear, EOM Intact, PERRL HENT: Yes: Atraumatic, Normocephalic Cardiovascular: Yes: Regular Rate and Rhythm. No: Gallop, Murmur, Rub Respiratory: Yes: Regular, Cough (non-productive), On Nasal O2, Wheezes. No: Rales, Rhonchi Gastrointestinal: Yes: Normal Bowel Sounds, Soft. No: Distention, Tenderness Extremities: Yes: WNL Edema: No Labs: CBC, BMP 06/08/17 05:25 06/08/17 05:25 Imaging - Results Chest X-ray: Report Reviewed, Image Reviewed Problem List - Problems (1) COPD exacerbation Assessment/Plan: -patient presents with symptoms consistent with COPD exacerbation -admitted to telemetry -continue advair -add scheduled duonebs -may need steroids but will monitor since feeling improved Code(s): J44.1 - CHRONIC OBSTRUCTIVE PULMONARY DISEASE W (ACUTE) EXACERBATION (2) Metabolic acidosis Assessment/Plan: -patient with chronic metabolic acidosis but worsened -nephrology following and note reviewed -continue bicarb gtt but will see if can stop soon secondary to hyperglycemia Code(s): E87.2 - ACIDOSIS (3) Diabetes Assessment/Plan: -with hyperglycemia secondary to bicarb gtt -patient normally on lantus 10 units daily -will start levemir 10 units bid -continue SSI -diabetic diet Code(s): E11.9 - TYPE 2 DIABETES MELLITUS WITHOUT COMPLICATIONS Qualifiers: Diabetes mellitus type: type 2 Diabetes mellitus complication status: with kidney complications Diabetes mellitus complication detail: with chronic kidney disease Diabetes mellitus custodial insulin use: with custodial use Chronic kidney disease stage: stage 4 (severe) Qualified Code(s): E11.22 - Type 2 diabetes mellitus with diabetic chronic kidney disease; N18.4 - Chronic kidney disease, stage 4 (severe); N18.4 - Chronic kidney disease, stage 4 ( severe); N18.4 - Chronic kidney disease, stage 4 (severe); N18.4 - Chronic kidney disease, stage 4 (severe); Z79.4 - intermediate teacher (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 of insulin; Z79.4 - assisted (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 of insulin; Z79.4 - intermediate teacher (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 of insulin; Z79.4 - intermediate teacher (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 of insulin (4) Chronic kidney disease Assessment/Plan: -MEKA on CKD -continue hydration per nephrology -improving Code(s): N18.9 - CHRONIC KIDNEY DISEASE, UNSPECIFIED Qualifiers: Chronic kidney disease stage: stage 4 (severe) Qualified Code(s): N18.4 - Chronic kidney disease, stage 4 (severe) (5) Hypertension Assessment/Plan: -continue cardura, norvasc, and hydralazine -d/w nephrology, suspect elevated secondary to bicarb gtt Code(s): I10 - ESSENTIAL (PRIMARY) HYPERTENSION Qualifiers: Hypertension type: essential hypertension Qualified Code(s): I10 - Essential (primary) hypertension (6) HLD (hyperlipidemia) Assessment/Plan: -continue lipitor Code(s): E78.5 - HYPERLIPIDEMIA, UNSPECIFIED
--- NOTE | 2017-06-08 11:44 | EKG ---
Test Reason : Blood Pressure : / mmHG Vent. Rate : 084 BPM Atrial Rate : 084 BPM P-R Int : 194 ms QRS Dur : 108 ms QT Int : 388 ms P-R-T Axes : 042 -55 048 degrees QTc Int : 458 ms SINUS RHYTHM WITH OCCASIONAL PREMATURE VENTRICULAR COMPLEXES LEFT ANTERIOR FASCICULAR BLOCK MINIMAL VOLTAGE CRITERIA FOR LVH, MAY BE NORMAL VARIANT ABNORMAL ECG WHEN COMPARED WITH ECG OF 17-DEC-2016 22:50, PREMATURE VENTRICULAR COMPLEXES ARE NOW PRESENT T WAVE AMPLITUDE HAS DECREASED IN INFERIOR LEADS Confirmed by SHYLA LANE, KERRY ([id number]) on 06/08/2017 11:44:13 AM Referred By: Confirmed By:KERRY MANSFIELD MD
--- NOTE | 2017-06-08 13:55 | EKG ---
Test Reason : Blood Pressure : / mmHG Vent. Rate : 093 BPM Atrial Rate : 093 BPM P-R Int : 206 ms QRS Dur : 112 ms QT Int : 368 ms P-R-T Axes : 034 -51 047 degrees QTc Int : 457 ms NORMAL SINUS RHYTHM POSSIBLE LEFT ATRIAL ENLARGEMENT LEFT ANTERIOR FASCICULAR BLOCK LEFT VENTRICULAR HYPERTROPHY CANNOT RULE OUT INFERIOR INFARCT , AGE UNDETERMINED POOR R WAVE PROGRESSION ABNORMAL ECG WHEN COMPARED WITH ECG OF 07-JUN-2017 18:13, PREMATURE VENTRICULAR COMPLEXES ARE NO LONGER PRESENT Confirmed by GIGI MORALES MD ([id number]) on 06/08/2017 1:55:05 PM Referred By: Confirmed By:GIGI MORALES MD
[2017-06-08 14:13] LABS: URINE LEUK ESTERASE TRACE (NEGATIVE)
[2017-06-08 14:36] LABS: ANION GAP 13 (8-16); CALCIUM 8.7 mg/dL (8.5-10.1); CO2 15 mmol/L (21-32); CREATININE 3.5 mg/dL (0.7-1.3)
[2017-06-08 14:38] LABS: GLUCOSE,RANDOM 409 mg/dL (74-106)
[2017-06-08] MEDS: INSULIN SLIDING SCALE (NOVOLOG) 1 VIAL SQ SCH ×2 (14:59→17:27)
[2017-06-08 15:58] LABS: URINE BACTERIA 3+ /hpf (NEGATIVE); URINE RBC 0-3 /hpf (0-3)
[2017-06-08] MEDS: ALBUTEROL SO4 2.5/IPRATROPIUM 0.5 INH SOL 3 ML VIAL.NEB. NEB SCH ×2 (17:24→22:20)
[2017-06-08] MEDS: CYANOCOBALAMIN 1,000 MCG TABLET (FP) PO SCH (17:26)
[2017-06-08] MEDS: ALBUTEROL SO4 0.083% IH SOL 2.5 MG/3 ML VIAL.NEB. NEB PRN (19:53)
[2017-06-08] MEDS: ATORVASTATIN CA 10 MG TABLET (FP) PO SCH (21:23)
[2017-06-08] MEDS: INSULIN DETEMIR 100 UNITS/ML MDV SQ SCH (21:24)
[2017-06-09] MEDS ORDERED: INSULIN (NOVOLOG) ASPART 100 UNITS/ML 10ML VIAL ONE ×3 (06:03→11:47)
[2017-06-09] MEDS: INSULIN DETEMIR 100 UNITS/ML MDV SQ SCH ×2 (06:09→22:47)
[2017-06-09] MEDS ORDERED: INSULIN (NOVOLOG) ASPART 100 UNITS/ML 10ML VIAL SQ ONE ×2 (06:17→06:45)
[2017-06-09] MEDS ORDERED: INSULIN DETEMIR 100 UNITS/ML MDV SQ ONE (06:26)
[2017-06-09] MEDS: INSULIN SLIDING SCALE (NOVOLOG) 1 VIAL SQ SCH ×3 (06:31→17:28)
[2017-06-09] MEDS: SODIUM BICARBONATE 8.4% - 150 MEQ in DEXTROSE 5%-WATER - 1,000 ML IV SCH ×2 (06:32→09:42)
[2017-06-09] MEDS: ALBUTEROL SO4 2.5/IPRATROPIUM 0.5 INH SOL 3 ML VIAL.NEB. NEB SCH ×3 (06:58→22:32)
[2017-06-09 07:02] LABS: BASOPHIL 0.5 % (0-2.0); EOSINOPHIL 3.3 % (0-4.5); MCH 26.4 pg (25.7-33.7); MCHC 32.8 g/dl (32.0-35.9); MEAN CELL VOLUME 80.6 fl (80-96); MEAN PLT VOLUME 7.8 fl (7.5-11.1); PLATELET COUNT 316 K/MM3 (134-434); RDW 15.2 % (11.9-15.9); WHITE BLOOD COUNT 8.9 K/mm3 (4.0-10.0)
[2017-06-09 07:23] LABS: ANION GAP 11 (8-16); CALCIUM 8.9 mg/dL (8.5-10.1); CO2 19 mmol/L (21-32); CREATININE 3.2 mg/dL (0.7-1.3); MAGNESIUM 2.5 mg/dL (1.8-2.4); PHOSPHOROUS 3.5 mg/dL (2.5-4.9)
[2017-06-09 07:36] LABS: GLUCOSE,RANDOM 373 mg/dL (74-106)
[2017-06-09] MEDS: FLUTICASONE/SALMETEROL 100 MCG/50 MCG DISKUS IH SCH (09:43)
[2017-06-09] MEDS: hydrALAZINE HCL 50 MG TABLET (FP) PO SCH ×2 (09:44→22:45)
[2017-06-09] MEDS: DOXAZOSIN MESYLATE 4 MG TABLET PO SCH (09:44)
[2017-06-09] MEDS: CHOLECALCIFEROL (VITAMIN D3) 1,000 UNIT TABLET (FP) PO SCH (09:44)
[2017-06-09] MEDS: MULTIVITAMINS (DAILY MVI) TABLET (FP) PO SCH (09:44)
[2017-06-09] MEDS: PANTOPRAZOLE 40 MG TABLET (FP) PO SCH ×2 (09:44→22:46)
[2017-06-09] MEDS: amLODIPine BESYLATE 5 MG TABLET (FP) PO SCH (09:44)
[2017-06-09] MEDS: ASPIRIN 81 MG CHEWABLE TABLETS PO SCH (09:44)
[2017-06-09] MEDS: CYANOCOBALAMIN 1,000 MCG TABLET (FP) PO SCH (09:44)
[2017-06-09] MEDS: HEPARIN NA (PORCINE) 5,000 UNITS/ML 1ML VIAL SQ SCH ×2 (09:45→22:48)
--- NOTE | 2017-06-09 11:32 | PN ---
Progress Note, Physician Chief Complaint: Mr Isaacs says he is feeling better. Still with coughing at night but overall much improved. No cp or n/v. Sob much improved. - Current Medication List Current Medications: Active Medications Albuterol Sulfate (Ventolin 0.083% Nebulizer Soln -) 1 amp NEB Q15M PRN PRN Reason: Dyspnea Last Admin: 06/08/17 19:53 Dose: 1 amp Albuterol/Ipratropium (Duoneb -) 1 amp NEB TIDR [facility] Last Admin: 06/09/17 06:58 Dose: Not Given Amlodipine Besylate (Norvasc -) 5 mg PO DAILY [facility] Last Admin: 06/09/17 09:44 Dose: 5 mg Aspirin (Asa -) 81 mg PO DAILY [facility] Last Admin: 06/09/17 09:44 Dose: 81 mg Atorvastatin Calcium (Lipitor -) 10 mg PO HS [facility] Last Admin: 06/08/17 21:23 Dose: 10 mg Cholecalciferol (Vitamin D3 -) 2,000 unit PO DAILY [facility] Last Admin: 06/09/17 09:44 Dose: 2,000 unit Cyanocobalamin (Vitamin B12 -) 1,000 mcg PO DAILY [facility] Last Admin: 06/09/17 09:44 Dose: 1,000 mcg Doxazosin Mesylate (Cardura -) 4 mg PO DAILY [facility] Last Admin: 06/09/17 09:44 Dose: 4 mg Heparin Sodium (Porcine) (Heparin -) 5,000 unit SQ BID [facility] Last Admin: 06/09/17 09:45 Dose: 5,000 unit Hydralazine HCl (Apresoline -) 50 mg PO BID [facility] Last Admin: 06/09/17 09:44 Dose: 50 mg Sodium Bicarbonate 150 meq/ (Dextrose) 1,150 mls @ 100 mls/hr IV Q11H [facility] Last Admin: 06/09/17 09:42 Dose: 100 mls/hr Insulin Aspart (Novolog Vial Sliding Scale -) 1 vial SQ TIDAC [facility] PRN Reason: Protocol Last Admin: 06/09/17 06:31 Dose: 10 unit Insulin Detemir (Levemir Vial) 20 units SQ BID@0700,2200 [facility] Multivitamins/Minerals/Vitamin C (Tab-A-Vit -) 1 tab PO DAILY [facility] Last Admin: 06/09/17 09:44 Dose: 1 tab Pantoprazole Sodium (Protonix -) 40 mg PO BID [facility] Last Admin: 06/09/17 09:44 Dose: 40 mg Fluticasone/Salmeterol (Advair 100mcg/50mcg -) 1 puff IH DAILY [facility] Last Admin: 06/09/17 09:43 Dose: 1 inhaler - Objective Vital Signs: Vital Signs Temperature 36.7 C 06/09/17 10:00 Pulse Rate 89 06/09/17 10:00 Respiratory Rate 20 06/09/17 10:00 Blood Pressure 111/62 06/09/17 10:00 O2 Sat by Pulse Oximetry (%) 97 06/09/17 09:00 Constitutional: Yes: No Distress, Calm, Obese Cardiovascular: Yes: Regular Rate and Rhythm. No: Gallop, Murmur, Rub Respiratory: Yes: Regular, Wheezes. No: CTA Bilaterally, On Nasal O2, Rales, Rhonchi Gastrointestinal: Yes: Normal Bowel Sounds, Soft. 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 Chronic kidney disease stage: stage 4 (severe) Qualified Code(s): E11.22 - Type 2 diabetes mellitus with diabetic chronic kidney disease; N18.4 - Chronic kidney disease, stage 4 (severe); N18.4 - Chronic kidney disease, stage 4 ( severe); N18.4 - Chronic kidney disease, stage 4 (severe); N18.4 - Chronic kidney disease, stage 4 (severe); Z79.4 - intermediate teacher (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 of insulin; Z79.4 - intermediate teacher (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 of insulin; Z79.4 - intermediate teacher (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 of insulin; Z79.4 - intermediate teacher (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 of insulin (4) Chronic kidney disease Code(s): N18.9 - CHRONIC KIDNEY DISEASE, UNSPECIFIED Qualifiers: Chronic kidney disease stage: stage 4 (severe) Qualified Code(s): N18.4 - Chronic kidney disease, stage 4 (severe) (5) Hypertension Code(s): I10 - ESSENTIAL (PRIMARY) HYPERTENSION Qualifiers: Hypertension type: essential hypertension Qualified Code(s): I10 - Essential (primary) hypertension (6) HLD (hyperlipidemia) Code(s): E78.5 - HYPERLIPIDEMIA, UNSPECIFIED Assessment/Plan (1) COPD exacerbation Assessment/Plan: -patient presents with symptoms consistent with COPD exacerbation -continue advair and scheduled duonebs -much improved -holding on steroids secondary to improvement and hyperglycemia Code(s): J44.1 - CHRONIC OBSTRUCTIVE PULMONARY DISEASE W (ACUTE) EXACERBATION (2) Metabolic acidosis Assessment/Plan: -nephrology managing -currently on bicarb gtt -improving, defer to nephrology change to oral supplementation Code(s): E87.2 - ACIDOSIS (3) Diabetes Assessment/Plan: -hyperglycemia improved but still significant -secondary to bicarb gtt -increase levemir to 20 units bid while on bicarb gtt -once stopped, change back to 10 units bid -diabetic diet and SSI Code(s): E11.9 - TYPE 2 DIABETES MELLITUS WITHOUT COMPLICATIONS Qualifiers: Diabetes mellitus type: type 2 Diabetes mellitus complication status: with kidney complications Diabetes mellitus complication detail: with chronic kidney disease Diabetes mellitus care home insulin use: with care home use Chronic kidney disease stage: stage 4 (severe) Qualified Code(s): E11.22 - Type 2 diabetes mellitus with diabetic chronic kidney disease; N18.4 - Chronic kidney disease, stage 4 (severe); N18.4 - Chronic kidney disease, stage 4 ( severe); N18.4 - Chronic kidney disease, stage 4 (severe); N18.4 - Chronic kidney disease, stage 4 (severe); Z79.4 - alf (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 of insulin; Z79.4 - alf (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 of insulin; Z79.4 - alf (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 of insulin; Z79.4 - alf (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 of insulin (4) Chronic kidney disease Assessment/Plan: -MEKA on CKD -continue hydration per nephrology -improving Code(s): N18.9 - CHRONIC KIDNEY DISEASE, UNSPECIFIED Qualifiers: Chronic kidney disease stage: stage 4 (severe) Qualified Code(s): N18.4 - Chronic kidney disease, stage 4 (severe) (5) Hypertension Assessment/Plan: -continue cardura, norvasc, and hydralazine -improved today Code(s): I10 - ESSENTIAL (PRIMARY) HYPERTENSION Qualifiers: Hypertension type: essential hypertension Qualified Code(s): I10 - Essential (primary) hypertension (6) HLD (hyperlipidemia) Assessment/Plan: -continue lipitor Code(s): E78.5 - HYPERLIPIDEMIA, UNSPECIFIED
--- NOTE | 2017-06-09 15:01 | PN ---
Progress Note (short form) - Note Progress Note: Renal Follow up for MEKA and Metabolic acidosis Pt seen and examined at the bedside + cough no sob, chest pain, abd pain no N/V/D Vital Signs Temperature 98.1 F 06/09/17 10:00 Pulse Rate 89 06/09/17 10:00 Respiratory Rate 20 06/09/17 10:00 Blood Pressure 111/62 06/09/17 10:00 O2 Sat by Pulse Oximetry (%) 97 06/09/17 09:00 Intake & Output 06/06/17 06/07/17 06/08/17 06/09/17 23:59 23:59 23:59 23:59 Intake Total 472 1200 Output Total 2500 4000 Balance -2027 -2799 Weight 136.078 kg 128.367 kg NAD awake and alert CTA soft, Obese, NT/ND Trace to 1+ Le edema CBC, BMP 06/09/17 06:49 06/09/17 06:49 Current Medications Albuterol Sulfate (Ventolin 0.083% Nebulizer Soln -) 1 amp NEB Q15M PRN PRN Reason: Dyspnea Last Admin: 06/08/17 19:53 Dose: 1 amp Albuterol/Ipratropium (Duoneb -) 1 amp NEB TIDR [facility] Last Admin: 06/09/17 14:00 Dose: 1 amp Amlodipine Besylate (Norvasc -) 5 mg PO DAILY [facility] Last Admin: 06/09/17 09:44 Dose: 5 mg Aspirin (Asa -) 81 mg PO DAILY [facility] Last Admin: 06/09/17 09:44 Dose: 81 mg Atorvastatin Calcium (Lipitor -) 10 mg PO HS [facility] Last Admin: 06/08/17 21:23 Dose: 10 mg Cholecalciferol (Vitamin D3 -) 2,000 unit PO DAILY [facility] Last Admin: 06/09/17 09:44 Dose: 2,000 unit Cyanocobalamin (Vitamin B12 -) 1,000 mcg PO DAILY [facility] Last Admin: 06/09/17 09:44 Dose: 1,000 mcg Doxazosin Mesylate (Cardura -) 4 mg PO DAILY [facility] Last Admin: 06/09/17 09:44 Dose: 4 mg Heparin Sodium (Porcine) (Heparin -) 5,000 unit SQ BID [facility] Last Admin: 06/09/17 09:45 Dose: 5,000 unit Hydralazine HCl (Apresoline -) 50 mg PO BID [facility] Last Admin: 06/09/17 09:44 Dose: 50 mg Insulin Aspart (Novolog Vial Sliding Scale -) 1 vial SQ TIDAC [facility] PRN Reason: Protocol Last Admin: 06/09/17 12:52 Dose: 10 unit Insulin Detemir (Levemir Vial) 20 units SQ BID@0700,2200 [facility] Multivitamins/Minerals/Vitamin C (Tab-A-Vit -) 1 tab PO DAILY [facility] Last Admin: 06/09/17 09:44 Dose: 1 tab Pantoprazole Sodium (Protonix -) 40 mg PO BID [facility] Last Admin: 06/09/17 09:44 Dose: 40 mg Fluticasone/Salmeterol (Advair 100mcg/50mcg -) 1 puff IH DAILY [facility] Last Admin: 06/09/17 09:43 Dose: 1 inhaler Sodium Bicarbonate (Sodium Bicarbonate -) 1,300 mg PO BID [facility] 66 year old gentleman with PMhx of CKD Stage 5 (Baseline Cr ~2.8), Bladder Ca s/ p Cystectomy with cystostomy, CVA, Hypertension, HLD, DM who presented with compalints of SOB and found to have MEKA and Metabolic acidosis. 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
[2017-06-09] MEDS: SODIUM BICARBONATE 650 MG TABLET PO SCH ×2 (15:08→22:45)
[2017-06-09] MEDS: ATORVASTATIN CA 10 MG TABLET (FP) PO SCH (22:45)
[2017-06-10] MEDS ORDERED: INSULIN (NOVOLOG) ASPART 100 UNITS/ML 10ML VIAL ONE (06:41)
[2017-06-10] MEDS: INSULIN SLIDING SCALE (NOVOLOG) 1 VIAL SQ SCH ×3 (06:45→18:05)
[2017-06-10] MEDS: INSULIN DETEMIR 100 UNITS/ML MDV SQ SCH ×2 (06:45→21:18)
[2017-06-10] MEDS ORDERED: INSULIN DETEMIR 100 UNITS/ML MDV SQ ONE (06:51)
[2017-06-10] MEDS: ALBUTEROL SO4 2.5/IPRATROPIUM 0.5 INH SOL 3 ML VIAL.NEB. NEB SCH ×2 (07:00→21:53)
[2017-06-10 07:40] LABS: BASOPHIL 0.7 % (0-2.0); EOSINOPHIL 6.9 % (0-4.5); MCH 27.7 pg (25.7-33.7); MCHC 33.9 g/dl (32.0-35.9); MEAN CELL VOLUME 81.6 fl (80-96); MEAN PLT VOLUME 7.9 fl (7.5-11.1); NEUTROPHILS 67.9 % (42.8-82.8); PLATELET COUNT 303 K/MM3 (134-434); RDW 15.5 % (11.9-15.9); WHITE BLOOD COUNT 8.2 K/mm3 (4.0-10.0)
[2017-06-10 07:48] LABS: ANION GAP 7 (8-16); CALCIUM 8.5 mg/dL (8.5-10.1); CO2 23 mmol/L (21-32); CREATININE 2.9 mg/dL (0.7-1.3); GLUCOSE,RANDOM 234 mg/dL (74-106); PHOSPHOROUS 2.7 mg/dL (2.5-4.9)
[2017-06-10 07:54] LABS: MAGNESIUM 2.6 mg/dL (1.8-2.4)
[2017-06-10] MEDS: FLUTICASONE/SALMETEROL 100 MCG/50 MCG DISKUS IH SCH (09:02)
[2017-06-10] MEDS: SODIUM BICARBONATE 650 MG TABLET PO SCH ×2 (09:03→21:18)
[2017-06-10] MEDS: HEPARIN NA (PORCINE) 5,000 UNITS/ML 1ML VIAL SQ SCH ×2 (09:03→21:18)
[2017-06-10] MEDS: ASPIRIN 81 MG CHEWABLE TABLETS PO SCH (09:03)
[2017-06-10] MEDS: hydrALAZINE HCL 50 MG TABLET (FP) PO SCH ×2 (09:03→21:18)
[2017-06-10] MEDS: PANTOPRAZOLE 40 MG TABLET (FP) PO SCH ×2 (09:03→21:18)
[2017-06-10] MEDS: amLODIPine BESYLATE 5 MG TABLET (FP) PO SCH (09:03)
[2017-06-10] MEDS: MULTIVITAMINS (DAILY MVI) TABLET (FP) PO SCH (09:03)
[2017-06-10] MEDS: CYANOCOBALAMIN 1,000 MCG TABLET (FP) PO SCH (09:03)
[2017-06-10] MEDS: CHOLECALCIFEROL (VITAMIN D3) 1,000 UNIT TABLET (FP) PO SCH (09:03)
[2017-06-10] MEDS: DOXAZOSIN MESYLATE 4 MG TABLET PO SCH (09:04)
[2017-06-10 10:03] LABS: ALBUMIN 3.2 g/dl (3.4-5.0); ANION GAP 10 (8-16); BILIRUBIN,TOTAL 0.3 mg/dL (0.2-1.0); CALCIUM 8.5 mg/dL (8.5-10.1); CO2 21 mmol/L (21-32); CREATININE 2.9 mg/dL (0.7-1.3); GLUCOSE,RANDOM 288 mg/dL (74-106); MAGNESIUM 2.6 mg/dL (1.8-2.4); SGOT/AST 15 U/L (15-37); SGPT/ALT 27 U/L (12-78)
[2017-06-10 10:04] LABS: ALK PHOS 80 U/L (45-117)
[2017-06-10 10:06] LABS: CPK 253 IU/L (39-308); TROPONIN I < 0.02 ng/ml (0.00-0.05)
--- NOTE | 2017-06-10 10:37 | EKG ---
Test Reason : Blood Pressure : / mmHG Vent. Rate : 081 BPM Atrial Rate : 081 BPM P-R Int : 202 ms QRS Dur : 098 ms QT Int : 386 ms P-R-T Axes : 028 -43 026 degrees QTc Int : 448 ms NORMAL SINUS RHYTHM LEFT AXIS DEVIATION VOLTAGE CRITERIA FOR LEFT VENTRICULAR HYPERTROPHY ABNORMAL ECG WHEN COMPARED WITH ECG OF 08-JUN-2017 09:11, NO SIGNIFICANT CHANGE WAS FOUND Confirmed by SHYLA LANE, KERRY ([id number]) on 06/10/2017 10:37:03 AM Referred By: NEHA GONZALEZ DR Confirmed By:KERRY MANSFIELD MD
--- NOTE | 2017-06-10 11:28 | PN ---
Progress Note, Physician Chief Complaint: Mr Isaacs says he had an episode of chest pain last night associated with coughing and again today when he was walking. He says the pain was sharp, left sided, and lasted less than a minute. Currently resolved. Still with shortness of breath and coughing. No n/v. - Current Medication List Current Medications: Active Medications Albuterol Sulfate (Ventolin 0.083% Nebulizer Soln -) 1 amp NEB Q15M PRN PRN Reason: Dyspnea Last Admin: 06/08/17 19:53 Dose: 1 amp Albuterol/Ipratropium (Duoneb -) 1 amp NEB TIDR [facility] Last Admin: 06/10/17 07:00 Dose: 1 amp Amlodipine Besylate (Norvasc -) 5 mg PO DAILY [facility] Last Admin: 06/10/17 09:03 Dose: 5 mg Aspirin (Asa -) 81 mg PO DAILY [facility] Last Admin: 06/10/17 09:03 Dose: 81 mg Atorvastatin Calcium (Lipitor -) 10 mg PO HS [facility] Last Admin: 06/09/17 22:45 Dose: 10 mg Cholecalciferol (Vitamin D3 -) 2,000 unit PO DAILY [facility] Last Admin: 06/10/17 09:03 Dose: 2,000 unit Cyanocobalamin (Vitamin B12 -) 1,000 mcg PO DAILY [facility] Last Admin: 06/10/17 09:03 Dose: 1,000 mcg Doxazosin Mesylate (Cardura -) 4 mg PO DAILY [facility] Last Admin: 06/10/17 09:04 Dose: 4 mg Heparin Sodium (Porcine) (Heparin -) 5,000 unit SQ BID [facility] Last Admin: 06/10/17 09:03 Dose: 5,000 unit Hydralazine HCl (Apresoline -) 50 mg PO BID [facility] Last Admin: 06/10/17 09:03 Dose: 50 mg Insulin Aspart (Novolog Vial Sliding Scale -) 1 vial SQ TIDAC [facility] PRN Reason: Protocol Last Admin: 06/10/17 06:45 Dose: 4 units Insulin Detemir (Levemir Vial) 20 units SQ BID@0700,2200 [facility] Last Admin: 06/10/17 06:45 Dose: 20 units Multivitamins/Minerals/Vitamin C (Tab-A-Vit -) 1 tab PO DAILY [facility] Last Admin: 06/10/17 09:03 Dose: 1 tab Pantoprazole Sodium (Protonix -) 40 mg PO BID [facility] Last Admin: 06/10/17 09:03 Dose: 40 mg Fluticasone/Salmeterol (Advair 100mcg/50mcg -) 1 puff IH DAILY [facility] Last Admin: 06/10/17 09:02 Dose: 1 inhaler Sodium Bicarbonate (Sodium Bicarbonate -) 1,300 mg PO BID [facility] Last Admin: 06/10/17 09:03 Dose: 1,300 mg - Objective Vital Signs: Vital Signs Temperature 36.4 C L 06/10/17 09:00 Pulse Rate 92 H 06/10/17 09:00 Respiratory Rate 20 06/10/17 09:00 Blood Pressure 158/82 06/10/17 09:00 O2 Sat by Pulse Oximetry (%) 97 06/09/17 21:00 Constitutional: Yes: No Distress, Calm, Obese Cardiovascular: Yes: Regular Rate and Rhythm. No: Gallop, Murmur, Rub Respiratory: Yes: Regular, On Nasal O2, Rhonchi. No: CTA Bilaterally, Rales, Wheezes Gastrointestinal: Yes: Normal Bowel Sounds, Soft. No: Distention, Tenderness Extremities: Yes: WNL Edema: Yes Edema: LLE: 1+, RLE: 1+ Labs: CBC, BMP 06/10/17 06:30 06/10/17 09:10 INR, PTT INR 1.07 (0.82-1.09) 06/07/17 18:00 Problem List - Problems (1) COPD exacerbation Code(s): J44.1 - CHRONIC OBSTRUCTIVE PULMONARY DISEASE W (ACUTE) EXACERBATION (2) Metabolic acidosis Code(s): E87.2 - ACIDOSIS (3) Diabetes Code(s): E11.9 - TYPE 2 DIABETES MELLITUS WITHOUT COMPLICATIONS Qualifiers: Diabetes mellitus type: type 2 Diabetes mellitus complication status: with kidney complications Diabetes mellitus complication detail: with chronic kidney disease Diabetes mellitus care home insulin use: with termite control technician use Chronic kidney disease stage: stage 4 (severe) Qualified Code(s): E11.22 - Type 2 diabetes mellitus with diabetic chronic kidney disease; N18.4 - Chronic kidney disease, stage 4 (severe); N18.4 - Chronic kidney disease, stage 4 ( severe); N18.4 - Chronic kidney disease, stage 4 (severe); N18.4 - Chronic kidney disease, stage 4 (severe); Z79.4 - exterminator termite (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 of insulin; Z79.4 - exterminator termite (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 of insulin; Z79.4 - [facility] (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 of insulin; Z79.4 - [facility] (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 of insulin (4) Chronic kidney disease Code(s): N18.9 - CHRONIC KIDNEY DISEASE, UNSPECIFIED Qualifiers: Chronic kidney disease stage: stage 4 (severe) Qualified Code(s): N18.4 - Chronic kidney disease, stage 4 (severe) (5) Hypertension Code(s): I10 - ESSENTIAL (PRIMARY) HYPERTENSION Qualifiers: Hypertension type: essential hypertension Qualified Code(s): I10 - Essential (primary) hypertension (6) HLD (hyperlipidemia) Code(s): E78.5 - HYPERLIPIDEMIA, UNSPECIFIED (7) Chest pain Code(s): R07.9 - CHEST PAIN, UNSPECIFIED Assessment/Plan (1) COPD exacerbation Assessment/Plan: -patient presents with symptoms consistent with COPD exacerbation -continue advair and scheduled duonebs -will add prednisone today for inflammation as now off of bicarb gtt -robitussin dm for coughing Code(s): J44.1 - CHRONIC OBSTRUCTIVE PULMONARY DISEASE W (ACUTE) EXACERBATION (2) Metabolic acidosis Assessment/Plan: -nephrology managing -resolved -on bicarb by mouth Code(s): E87.2 - ACIDOSIS (3) Diabetes Assessment/Plan: -levemir increased to 20 units bid -still with hyperglycemia but much improved -however adding prednisone so may exacerbate -patient in on lantus 10 units as an outpatient Code(s): E11.9 - TYPE 2 DIABETES MELLITUS WITHOUT COMPLICATIONS Qualifiers: Diabetes mellitus type: type 2 Diabetes mellitus complication status: with kidney complications Diabetes mellitus complication detail: with chronic kidney disease Diabetes mellitus termite control technician insulin use: with termite control technician use Chronic kidney disease stage: stage 4 (severe) Qualified Code(s): E11.22 - Type 2 diabetes mellitus with diabetic chronic kidney disease; N18.4 - Chronic kidney disease, stage 4 (severe); N18.4 - Chronic kidney disease, stage 4 ( severe); N18.4 - Chronic kidney disease, stage 4 (severe); N18.4 - Chronic kidney disease, stage 4 (severe); Z79.4 - exterminator termite (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 of insulin; Z79.4 - exterminator termite (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 of insulin; Z79.4 - exterminator termite (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 of insulin; Z79.4 - [facility] (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 of insulin (4) Chronic kidney disease Assessment/Plan: -MEKA on CKD -improving -nephrology following Code(s): N18.9 - CHRONIC KIDNEY DISEASE, UNSPECIFIED Qualifiers: Chronic kidney disease stage: stage 4 (severe) Qualified Code(s): N18.4 - Chronic kidney disease, stage 4 (severe) (5) Hypertension Assessment/Plan: -continue cardura, norvasc, and hydralazine Code(s): I10 - ESSENTIAL (PRIMARY) HYPERTENSION Qualifiers: Hypertension type: essential hypertension Qualified Code(s): I10 - Essential (primary) hypertension (6) HLD (hyperlipidemia) Assessment/Plan: -continue lipitor Code(s): E78.5 - HYPERLIPIDEMIA, UNSPECIFIED (7) Chest pain -sounds atypical -EKG reviewed, unchanged from admission and no signs of ACS -cardiac enzymes negative -will consult cardiology but may be secondary to coughing/pleurisy
[2017-06-10] MEDS: guaiFENesin/D-METHORPHAN HB 1 EACH TAB.ER.12H PO SCH ×2 (12:18→21:18)
[2017-06-10] MEDS: predniSONE 20 MG TABLET (UD) PO SCH (12:20)
--- NOTE | 2017-06-10 12:26 | PN ---
Progress Note (short form) - Note Progress Note: Renal Follow up for MEKA and Metabolic acidosis Pt seen and examined at the bedside awake and alert had CP last night and this am no SOB, palpitations, N/V Vital Signs Temperature 97.5 F L 06/10/17 09:00 Pulse Rate 92 H 06/10/17 09:00 Respiratory Rate 20 06/10/17 09:00 Blood Pressure 158/82 06/10/17 09:00 O2 Sat by Pulse Oximetry (%) 97 06/09/17 21:00 Intake & Output 06/07/17 06/08/17 06/09/17 06/10/17 23:59 23:59 23:59 23:59 Intake Total 472 1200 Output Total 2500 6300 650 Balance -2027 -650 Weight 136.078 kg 128.367 kg NAD awake and alert CTA soft, Obese, NT/ND Trace to 1+ Le edema CBC, BMP 06/10/17 06:30 06/10/17 09:10 Current Medications Albuterol Sulfate (Ventolin 0.083% Nebulizer Soln -) 1 amp NEB Q15M PRN PRN Reason: Dyspnea Last Admin: 06/08/17 19:53 Dose: 1 amp Albuterol/Ipratropium (Duoneb -) 1 amp NEB TIDR [facility] Last Admin: 06/10/17 07:00 Dose: 1 amp Amlodipine Besylate (Norvasc -) 5 mg PO DAILY [facility] Last Admin: 06/10/17 09:03 Dose: 5 mg Aspirin (Asa -) 81 mg PO DAILY [facility] Last Admin: 06/10/17 09:03 Dose: 81 mg Atorvastatin Calcium (Lipitor -) 10 mg PO HS [facility] Last Admin: 06/09/17 22:45 Dose: 10 mg Cholecalciferol (Vitamin D3 -) 2,000 unit PO DAILY [facility] Last Admin: 06/10/17 09:03 Dose: 2,000 unit Cyanocobalamin (Vitamin B12 -) 1,000 mcg PO DAILY [facility] Last Admin: 06/10/17 09:03 Dose: 1,000 mcg Doxazosin Mesylate (Cardura -) 4 mg PO DAILY [facility] Last Admin: 06/10/17 09:04 Dose: 4 mg Guaifenesin (Mucinex Dm -) 2 tablet PO BID [facility] Last Admin: 11/22/17 12:18 Dose: 2 tablet Heparin Sodium (Porcine) (Heparin -) 5,000 unit SQ BID [facility] Last Admin: 06/10/17 09:03 Dose: 5,000 unit Hydralazine HCl (Apresoline -) 50 mg PO BID [facility] Last Admin: 06/10/17 09:03 Dose: 50 mg Insulin Aspart (Novolog Vial Sliding Scale -) 1 vial SQ TIDAC [facility] PRN Reason: Protocol Last Admin: 06/10/17 12:06 Dose: 6 units Insulin Detemir (Levemir Vial) 20 units SQ BID@0700,2200 [facility] Last Admin: 06/10/17 06:45 Dose: 20 units Multivitamins/Minerals/Vitamin C (Tab-A-Vit -) 1 tab PO DAILY [facility] Last Admin: 06/10/17 09:03 Dose: 1 tab Pantoprazole Sodium (Protonix -) 40 mg PO BID [facility] Last Admin: 06/10/17 09:03 Dose: 40 mg Prednisone (Deltasone -) 40 mg PO DAILY [facility] Last Admin: 06/10/17 12:20 Dose: 40 mg Fluticasone/Salmeterol (Advair 100mcg/50mcg -) 1 puff IH DAILY [facility] Last Admin: 06/10/17 09:02 Dose: 1 inhaler Sodium Bicarbonate (Sodium Bicarbonate -) 1,300 mg PO BID [facility] Last Admin: 06/10/17 09:03 Dose: 1,300 mg 66 year old gentleman with PMhx of CKD Stage 5 (Baseline Cr ~2.8), Bladder Ca s/ p Cystectomy with cystostomy, CVA, Hypertension, HLD, DM who presented with complaints of SOB and found to have MEKA and Metabolic acidosis. #Acute on Chronic Renal Insufficiency Renal function improved toward baseline off IVF oral intake as tolerated #Metabolic acidosis Continue oral sodium bicarbonate goal Bicarb > 22 #SOB/Cough CXR w/o any pathology #Hypertension BP is above goal Continue Hydralazine add Amlodipne 5mg titrate meds to goal BP < 140/90 #Chest Pain Cardiology following Thank you Will follow Freddie Forbes DO
--- NOTE | 2017-06-10 12:26 | CON.CARD ---
Cardiology Consult (text) - Consultation Consultation Note: Consult - History of Present Illness Chief Complaint: sob, cough History of Present Illness: 66y M hx of presents with sob and cough for months that has been gradually worsening. Also some pleuritic cp during this time. No palps, dizzy, loc, pnd , orthopnea. Chronic mild le edema unchanged. Admitted for copd tx. Still with productive cough and occasional sharp cp with cough/deep breaths. 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: Yes: CVA Cardio/Vascular: Yes: HTN, Hyperlipdemia Renal/: Yes: Other (lucy durand) Endocrine: Yes: Diabetes Mellitus - Past Surgical History Past Surgical History: Yes: Cystectomy (05/2014) - Alcohol/Substance Use Hx Alcohol Use: No - Smoking History Smoking history: Never smoked Have you smoked in the past 12 months: No If you are a former smoker, when did you quit?: 1994 - Social History Usual Living Arrangement: Alone ADL: Independent 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 History of Recent Travel: No Home Medications Allergies Allergy/AdvReac Type Severity Reaction Status Date / Time shrimp Allergy Intermediate Vomiting Verified 06/07/17 16:48 Home Medications Medication Instructions Recorded Aspirin [Dianne Chewable] 81 mg PO DAILY 06/07/17 Atorvastatin Ca [Lipitor] 10 mg PO HS 06/07/17 Cholecalciferol (Vitamin D3) 2,000 unit PO DAILY 06/07/17 [Vitamin D3] Cyanocobalamin [Vitamin B12 -] 1,000 mcg PO DAILY 06/07/17 Doxazosin Mesylate [Cardura -] 4 mg PO DAILY 06/07/17 Furosemide [Lasix -] 40 mg PO DAILY 06/07/17 Hydralazine HCl [Apresoline -] 50 mg PO BID 06/07/17 Multivitamin [One Daily] 1 each PO DAILY 06/07/17 Pantoprazole Sodium [Protonix] 40 mg PO BID 06/07/17 Salmeterol/Fluticasone [Advair 1 inh IH DAILY 06/07/17 100Mcg/50Mcg -] Sodium Bicarbonate 10 gm PO BID 06/07/17 Family Disease History - Family Disease History Family History: Denies (no cmp) Review of Systems - Review of Systems Constitutional: no fever Eyes: denies: Eye Pain HENT: denies: no Nasal Congestion Neck: denies: Stiffness Cardiovascular: denies: Palpitations Respiratory: reports: Wheezing. denies: Orthopnea, PND Gastrointestinal: denies: Diarrhea, Rectal Bleeding Genitourinary: denies: Burning, Hematuria Musculoskeletal: denies: Muscle Pain Integumentary: denies: Rash Neurological: denies: Numbness, Seizure, Syncope Endocrine: denies: Excessive Sweating Hematology/Lymphatic: denies: Excessive Bleeding Vital Signs: Vital Signs Period Temp Pulse Resp BP Sys/Argueta Pulse Ox Last 24 Hr 97.5 F-98.8 F 84-95 20-20 119-158/73-92 97 Constitutional: Yes: Well Nourished, No Distress Eyes: No: Sclera Icterus HENT: No: Nasal Congestion Neck: No: Decreased ROM Respiratory: Yes: diffuse exp wheeze bl; nl effort No: Accessory Muscle Use, Rales, Wheezes Gastrointestinal: Yes: Normal Bowel Sounds. No: Distention, Hepatomegaly, Palpable Mass, Tenderness Cardiovascular: Yes: Regular Rate and Rhythm (soft sounds). No: Rub JVD: No Carotid Bruit: No Heart Sounds: Yes: S1, S2. No: Gallop Murmur: No: Systolic Murmur, Diastolic Murmur Extremities: No: Cool, Cyanosis Edema: trace le edema bl Peripheral Pulses: 2+ Left Carotid, 2+ Right Carotid, 2+ Left Doralis Pedis, 2+ Right Dorsalis Pedis Integumentary: No: Jaundice Neurological: Yes: Alert, Oriented (x3) Psychiatric: No: Agitated - Other Data Labs, Other Data: Laboratory Last Values WBC 8.2 K/mm3 (4.0-10.0) 06/10/17 06:30 RBC 4.25 M/mm3 (4.00-5.60) 06/10/17 06:30 Hgb 11.8 GM/dL (11.7-16.9) 06/10/17 06:30 Hct 34.7 % (35.4-49) L 06/10/17 06:30 MCV 81.6 fl (80-96) 06/10/17 06:30 MCH 27.7 pg (25.7-33.7) 06/10/17 06:30 MCHC 33.9 g/dl (32.0-35.9) 06/10/17 06:30 RDW 15.5 % (11.9-15.9) 06/10/17 06:30 Plt Count 303 K/MM3 (134-434) 06/10/17 06:30 MPV 7.9 fl (7.5-11.1) 06/10/17 06:30 Neutrophils % 67.9 % (42.8-82.8) 06/10/17 06:30 Lymphocytes % 15.8 % (8-40) 06/10/17 06:30 Monocytes % 8.7 % (3.8-10.2) 06/10/17 06:30 Eosinophils % 6.9 % (0-4.5) H D 06/10/17 06:30 Basophils % 0.7 % (0-2.0) 06/10/17 06:30 PT with INR 12.10 SEC (9.98-11.88) H 06/07/17 18:00 INR 1.07 (0.82-1.09) 06/07/17 18:00 Puncture Site Right radial 06/07/17 20:00 ABG pH 7.22 (7.35-7.45) L* 06/07/17 20:00 ABG pCO2 at Pt Temp 27.9 mmHg (35-45) L D 06/07/17 20:00 ABG pO2 at Pt Temp 97.9 mmHg (80-100) 06/07/17 20:00 ABG HCO3 10.9 meq/L (22-26) L* 06/07/17 20:00 ABG O2 Sat (Measured) 96.3 % (90-98.9) 06/07/17 20:00 ABG O2 Content 16.8 % vol (15-22) 06/07/17 20:00 ABG Base Excess -15.5 meq/l (-2-2) L* 06/07/17 20:00 Ron Test Positive 06/07/17 20:00 Oxygen Flow Rate No 06/07/17 20:00 Sodium 137 mmol/L (136-145) 06/10/17 09:10 Potassium 3.8 mmol/L (3.5-5.1) 06/10/17 09:10 Chloride 106 mmol/L (98-107) 06/10/17 09:10 Carbon Dioxide 21 mmol/L (21-32) 06/10/17 09:10 Anion Gap 10 (8-16) 06/10/17 09:10 BUN 58 mg/dL (7-18) H 06/10/17 09:10 Creatinine 2.9 mg/dL (0.7-1.3) H 06/10/17 09:10 Creat Clearance w eGFR 21.75 (>60) 06/10/17 09:10 POC Glucometer 294 UNITS (80-120) 06/10/17 12:04 Random Glucose 288 mg/dL (74-106) H D 06/10/17 09:10 Hemoglobin A1c % 9.6 % (4.8-6.0) H 06/08/17 05:25 Calcium 8.5 mg/dL (8.5-10.1) 06/10/17 09:10 Phosphorus 2.7 mg/dL (2.5-4.9) D 06/10/17 06:30 Magnesium 2.6 mg/dL (1.8-2.4) H 06/10/17 09:10 Total Bilirubin 0.3 mg/dL (0.2-1.0) 06/10/17 09:10 AST 15 U/L (15-37) D 06/10/17 09:10 ALT 27 U/L (12-78) D 06/10/17 09:10 Alkaline Phosphatase 80 U/L (45-117) 06/10/17 09:10 Creatine Kinase 253 IU/L (39-308) 06/10/17 09:10 Creatine Kinase Index 0.9 % (0.0-5.0) 06/10/17 09:10 CK-MB (CK-2) 2.336 ng/mL (0.5-3.6) 06/10/17 09:10 Troponin I < 0.02 ng/ml (0.00-0.05) 06/10/17 09:10 B-Natriuretic Peptide 71.81 pg/ml (5-125) 06/07/17 18:00 Total Protein 7.0 g/dl (6.4-8.2) 06/10/17 09:10 Albumin 3.2 g/dl (3.4-5.0) L 06/10/17 09:10 Urine Color Ltyellow 06/07/17 22:20 Urine Appearance Slcloudy 06/07/17 22:20 Urine pH 7.0 (5.0-8.0) 06/07/17 22:20 Ur Specific [place] 1.008 (1.001-1.035) 06/07/17 22:20 Urine Protein Negative (NEGATIVE) 06/07/17 22:20 Urine Glucose (UA) Negative (NEGATIVE) 06/07/17 22:20 Urine Ketones Negative (NEGATIVE) 06/07/17 22:20 Urine Blood Negative (NEGATIVE) 06/07/17 22:20 Urine Nitrite Negative (NEGATIVE) 06/07/17 22:20 Urine Bilirubin Negative (NEGATIVE) 06/07/17 22:20 Urine Urobilinogen Negative mg/dL (0.2-1.0) 06/07/17 22:20 Ur Leukocyte Esterase Trace (NEGATIVE) H 06/07/17 22:20 Urine RBC 0-3 /hpf (0-3) 06/07/17 22:20 Urine WBC 2-5 (0-2) 06/07/17 22:20 Ur Epithelial Cells 1+ /HPF 06/07/17 22:20 Urine Bacteria 3+ /hpf (NEGATIVE) 06/07/17 22:20 Echo here (08/04): nl LV/EF, no RWMA; mild LVH; nl RV; mild-mod MR, mild TR; RVSP 30-40; mild dil aortic root; small peric effusion, + pleural effusion tele: sr, occ pvcs ecg 06/10/17: sr, nl intervals, no ischemic changes, lvh cxr: clear lungs Assessment/Plan cp: -atypical, pleuritic, seems related to coughing -ecg, tele, ce's benign -has hx of pleuropericarditis 2016, no suggestion of this now presently-->check echo -cont tx of copd, monitor cp sxs sob, copd: -no signs chf. cxr clear, bnp low -cont tx copd lana on ckd: -improved after ivfs, renal following, near baseline cr of 2.5 now HTN: -cont current meds HPL: -cont statin prior CVA x 2: -once in 2013 (clincal dx then, no MRI done), again 10/01 when held ASA for procedure -no etiology found incl with outpt 30d monitor showing no afib/flutter -likely due to uncontrolled RFs and atherosclerotic dz -cont prior sec prevention tx plan bladder Ca: -[facility] [place] [facility] with prostatectomy aorta root aneurysm: -4.3cm (moderate dilation) on VÍCTOR 11/01; -cont bp control, statin
[2017-06-10] MEDS ORDERED: PT OWN MED DRAWER 7, Y5N ONE (21:11)
[2017-06-10] MEDS: ATORVASTATIN CA 10 MG TABLET (FP) PO SCH (21:18)
[2017-06-11] MEDS ORDERED: INSULIN (NOVOLOG) ASPART 100 UNITS/ML 10ML VIAL ONE ×3 (06:26→22:05)
[2017-06-11] MEDS: INSULIN DETEMIR 100 UNITS/ML MDV SQ SCH ×2 (06:34→22:15)
[2017-06-11] MEDS: INSULIN SLIDING SCALE (NOVOLOG) 1 VIAL SQ SCH ×4 (06:34→22:15)
[2017-06-11] MEDS: ALBUTEROL SO4 2.5/IPRATROPIUM 0.5 INH SOL 3 ML VIAL.NEB. NEB SCH ×3 (06:48→21:45)
[2017-06-11 08:05] LABS: BASOPHIL 0.2 % (0-2.0); MCH 27.6 pg (25.7-33.7); MCHC 33.7 g/dl (32.0-35.9); MEAN CELL VOLUME 82.1 fl (80-96); MEAN PLT VOLUME 7.8 fl (7.5-11.1); NEUTROPHILS 90.7 % (42.8-82.8); PLATELET COUNT 320 K/MM3 (134-434); RDW 15.4 % (11.9-15.9); WHITE BLOOD COUNT 11.5 K/mm3 (4.0-10.0)
[2017-06-11 08:16] LABS: ANION GAP 10 (8-16); CALCIUM 8.8 mg/dL (8.5-10.1); CO2 19 mmol/L (21-32); CREATININE 2.8 mg/dL (0.7-1.3); MAGNESIUM 2.6 mg/dL (1.8-2.4); PHOSPHOROUS 3.1 mg/dL (2.5-4.9)
[2017-06-11 08:38] LABS: GLUCOSE,RANDOM 358 mg/dL (74-106)
--- NOTE | 2017-06-11 09:39 | PN ---
Physical Exam: SUBJECTIVE: Patient seen and examined. He is sitting in the chair, in no acute distress. OBJECTIVE: Wheezing on posterior upper right lobe +scattered rhonchi Vital Signs Period Temp Pulse Resp BP Sys/Argueta Pulse Ox Last 24 Hr 97.4 F-98.2 F 89-100 18-20 139-157/75-87 99 GENERAL: The patient is awake, alert, and fully oriented, in no acute distress. HEAD: Normal with no signs of trauma. EYES: PERRL, extraocular movements intact, sclera anicteric, conjunctiva clear. No ptosis. ENT: Ears normal, nares patent, oropharynx clear without exudates, moist mucous membranes. NECK: Trachea midline, full range of motion, supple. LUNGS: scattered rhonchi, mild wheezing on right upper lobe HEART: Regular rate and rhythm, S1, S2 without murmur, rub or gallop. ABDOMEN: Soft, nontender, obese abdomen EXTREMITIES: +2 lower ext edema NEUROLOGICAL: Normal speech, gait not observed. PSYCH: Normal mood, normal affect. SKIN: Warm, dry, normal turgor, no rashes or lesions noted Laboratory Results - last 24 hr 06/08/17 06/08/17 06/10/17 07:53 11:23 09:10 WBC RBC Hgb Hct MCV MCH MCHC RDW Plt Count MPV Neutrophils % Lymphocytes % Monocytes % Eosinophils % Basophils % Sodium Potassium Chloride Carbon Dioxide Anion Gap BUN Creatinine Creat Clearance w eGFR POC Glucometer > 400 > 400 Random Glucose Calcium Phosphorus Magnesium Total Bilirubin AST ALT Alkaline Phosphatase Creatine Kinase 253 Creatine Kinase Index 0.9 CK-MB (CK-2) 2.336 Troponin I < 0.02 Total Protein Albumin 06/10/17 06/10/17 06/10/17 09:10 12:04 17:28 WBC RBC Hgb Hct MCV MCH MCHC RDW Plt Count MPV Neutrophils % Lymphocytes % Monocytes % Eosinophils % Basophils % Sodium 137 Potassium 3.8 Chloride 106 Carbon Dioxide 21 Anion Gap 10 BUN 58 H Creatinine 2.9 H Creat Clearance w eGFR 21.75 POC Glucometer 294 283 Random Glucose 288 H D Calcium 8.5 Phosphorus Magnesium 2.6 H Total Bilirubin 0.3 AST 15 D ALT 27 D Alkaline Phosphatase 80 Creatine Kinase Creatine Kinase Index CK-MB (CK-2) Troponin I Total Protein 7.0 Albumin 3.2 L 06/10/17 06/11/1706/11/17 21:17 06:31 07:30 WBC 11.5 H D RBC 4.14 Hgb 11.4 L Hct 34.0 L MCV 82.1 MCH 27.6 MCHC 33.7 RDW 15.4 Plt Count 320 MPV 7.8 Neutrophils % 90.7 H D Lymphocytes % 5.7 L D Monocytes % 3.4 L Eosinophils % 0.0 D Basophils % 0.2 Sodium Potassium Chloride Carbon Dioxide Anion Gap BUN Creatinine Creat Clearance w eGFR POC Glucometer 373 336 Random Glucose Calcium Phosphorus Magnesium Total Bilirubin AST ALT Alkaline Phosphatase Creatine Kinase Creatine Kinase Index CK-MB (CK-2) Troponin I Total Protein Albumin 06/11/17 07:30 WBC RBC Hgb Hct MCV MCH MCHC RDW Plt Count MPV Neutrophils % Lymphocytes % Monocytes % Eosinophils % Basophils % Sodium 136 Potassium 4.6 D Chloride 107 Carbon Dioxide 19 L Anion Gap 10 BUN 54 H Creatinine 2.8 H Creat Clearance w eGFR POC Glucometer Random Glucose 358 H* D Calcium 8.8 Phosphorus 3.1 Magnesium 2.6 H Total Bilirubin AST ALT Alkaline Phosphatase Creatine Kinase Creatine Kinase Index CK-MB (CK-2) Troponin I Total Protein Albumin Active Medications Generic Name Dose Route Start Last Admin Trade Name Freq PRN Reason Stop Dose Admin Albuterol Sulfate 1 amp 06/07/17 17:33 06/08/17 19:53 Ventolin 0.083% Nebulizer Soln - NEB 1 amp Q15M PRN Administration Dyspnea Albuterol/Ipratropium 1 amp 06/08/17 15:15 06/11/17 06:48 Duoneb - NEB 1 amp TIDR SHANEL Administration Amlodipine Besylate 5 mg 06/08/17 10:00 06/10/17 09:03 Norvasc - PO 5 mg DAILY [facility]ANEL Administration Aspirin 81 mg 06/08/17 10:00 06/10/17 09:03 Asa - PO 81 mg DAILY [facility]ANEL Administration Atorvastatin Calcium 10 mg 06/08/17 22:00 06/10/17 21:18 Lipitor - PO 10 mg HS SHANEL Administration Cholecalciferol 2,000 unit 06/08/17 10:00 06/10/17 09:03 Vitamin D3 - PO 2,000 unit DAILY [facility]ANEL Administration Cyanocobalamin 1,000 mcg 06/08/17 10:00 06/10/17 09:03 Vitamin B12 - PO 1,000 mcg DAILY [facility]AN[facility] Administration Doxazosin Mesylate 4 mg 06/08/17 10:00 06/10/17 09:04 Cardura - PO 4 mg DAILY [facility] Administration Guaifenesin 2 tablet 06/10/17 11:30 06/10/17 21:18 Mucinex Dm - PO 2 tablet BID [facility]ANEL Administration Heparin Sodium (Porcine) 5,000 unit 06/08/17 10:00 06/10/17 21:18 Heparin - SQ 5,000 unit BID [facility]ANEL Administration Hydralazine HCl 50 mg 06/08/17 06:45 06/10/17 21:18 Apresoline - PO 50 mg BID SHANEL Administration Insulin Aspart 1 vial 06/11/17 11:00 Novolog Vial Sliding Scale - SQ ACHS [facility] Protocol Insulin Detemir 20 units 06/09/17 09:24 06/11/17 06:34 Levemir Vial SQ 20 units BID@0700,2200 [facility] Administration Multivitamins/Minerals/Vitamin C 1 tab 06/08/17 10:00 06/10/17 09:03 Tab-A-Vit - PO 1 tab DAILY [facility] Administration Pantoprazole Sodium 40 mg 06/08/17 10:00 06/10/17 21:18 Protonix - PO 40 mg BID SHANEL Administration Prednisone 40 mg 06/10/17 11:30 06/10/17 12:20 Deltasone - PO 40 mg DAILY [facility] Administration Fluticasone/Salmeterol 1 puff 06/08/17 10:00 06/10/17 09:02 Advair 100mcg/50mcg - IH 1 inhaler DAILY [facility]ANEL Administration Sodium Bicarbonate 1,300 mg 06/09/17 15:00 06/10/17 21:18 Sodium Bicarbonate - PO 1,300 mg BID SHANEL Administration ASSESSMENT/PLAN: Patient is a 66 year old male with a significant past medical history of bladder CA s/p prostatectomy and urostomy, CVA x 2, diabetes mellitus, hypertension and hyperlipidemia. He presented to the ED on 06/08/17 with shortness of breath and productive cough. On admission patient reported that the productive cough started a few months ago and was put on Advair by his PCP with improvement. However, the cough returned and he became short of breath with exertion and at rest. He presented to the ER when his shortness of breath worsened. On exam, patient reports feeling better at rest and tolerating room air with supplemental oxygen as needed. Pulmonary COPD exacerbation, acute Patient on Advair, and scheduled duonebs Clinically improving, some wheezing on right upper lobe On Prednisone 40mg daily Albuterol nebs as needed Nephrology Metabolic Acidosis, acute On sodium bicarbonarte 1300mg PO BID Renal following CKD MEKA on CKD, monitor labs Renal following Endocrine Diabetes Levermir incresaed to 25 units BID Novolog adjusted for tighter blood sugar control Patient is on Humulin and Lantus at home Cardiology Hypertension, chronic, not at goal On Cardura, Norvasc, Hydralazine, Toprol added Monitor BP Chest pain, resolved Negative trops No chest pain or shortness of breath on exam Cardiology following F.E.N. Fluids: tolerating PO Electrolytes: monitor Nutrition: diabetic diet Prophylaxis DVT: Heparin GI: Protonix Disposition. full code. Visit type - Emergency Visit Emergency Visit: Yes ED Registration Date: 06/08/17 Care time: The patient presented to the Emergency Department on the above date and was hospitalized for further evaluation of their emergent condition. - New Patient This patient is new to me today: Yes Date on this admission: 06/11/17 - Critical Care Critical Care patient: No - Discharge Referral Referred to [facility] Med [facility] No
[2017-06-11] MEDS ORDERED: PT OWN MED DRAWER 7, Y5N ONE ×2 (09:56→22:05)
[2017-06-11] MEDS: MULTIVITAMINS (DAILY MVI) TABLET (FP) PO SCH (10:00)
[2017-06-11] MEDS: SODIUM BICARBONATE 650 MG TABLET PO SCH ×2 (10:00→22:14)
[2017-06-11] MEDS: CHOLECALCIFEROL (VITAMIN D3) 1,000 UNIT TABLET (FP) PO SCH (10:00)
[2017-06-11] MEDS: PANTOPRAZOLE 40 MG TABLET (FP) PO SCH ×2 (10:00→22:14)
[2017-06-11] MEDS: amLODIPine BESYLATE 5 MG TABLET (FP) PO SCH (10:01)
[2017-06-11] MEDS: HEPARIN NA (PORCINE) 5,000 UNITS/ML 1ML VIAL SQ SCH ×2 (10:01→22:15)
[2017-06-11] MEDS: DOXAZOSIN MESYLATE 4 MG TABLET PO SCH (10:01)
[2017-06-11] MEDS: predniSONE 20 MG TABLET (UD) PO SCH (10:02)
[2017-06-11] MEDS: FLUTICASONE/SALMETEROL 100 MCG/50 MCG DISKUS IH SCH (10:02)
[2017-06-11] MEDS: hydrALAZINE HCL 50 MG TABLET (FP) PO SCH ×2 (10:02→22:15)
[2017-06-11] MEDS: CYANOCOBALAMIN 1,000 MCG TABLET (FP) PO SCH (10:02)
[2017-06-11] MEDS: ASPIRIN 81 MG CHEWABLE TABLETS PO SCH (10:03)
[2017-06-11] MEDS: guaiFENesin/D-METHORPHAN HB 1 EACH TAB.ER.12H PO SCH ×2 (10:03→22:14)
--- NOTE | 2017-06-11 11:10 | PN ---
Progress Note (short form) - Note Progress Note: Renal Follow up for MEKA and Metabolic acidosis Pt seen and examined at the bedside no acute complaints no CP today has mild cough and wheeze no sob Vital Signs Temperature 98.2 F 06/11/17 06:00 Pulse Rate 100 H 06/11/17 06:00 Respiratory Rate 20 06/11/17 06:00 Blood Pressure 154/75 06/11/17 06:00 O2 Sat by Pulse Oximetry (%) 99 06/10/17 20:36 Intake & Output 06/08/17 06/09/17 06/10/17 06/11/17 23:59 23:59 23:59 23:59 Intake Total 472 1200 700 Output Total 2500 6300 2850 Balance -2027 -5099 -2149 Weight 128.367 kg NAD awake and alert CTA, no rales soft, Obese, NT/ND Trace to 1+ Le edema CBC, BMP 06/11/17 07:30 06/11/17 07:30 Current Medications Albuterol Sulfate (Ventolin 0.083% Nebulizer Soln -) 1 amp NEB Q15M PRN PRN Reason: Dyspnea Last Admin: 06/08/17 19:53 Dose: 1 amp Albuterol/Ipratropium (Duoneb -) 1 amp NEB TIDR [facility] Last Admin: 06/11/17 06:48 Dose: 1 amp Amlodipine Besylate (Norvasc -) 5 mg PO DAILY [facility] Last Admin: 06/11/17 10:01 Dose: 5 mg Aspirin (Asa -) 81 mg PO DAILY [facility] Last Admin: 06/11/17 10:03 Dose: 81 mg Atorvastatin Calcium (Lipitor -) 10 mg PO HS [facility] Last Admin: 06/10/17 21:18 Dose: 10 mg Cholecalciferol (Vitamin D3 -) 2,000 unit PO DAILY [facility] Last Admin: 06/11/17 10:00 Dose: 2,000 unit Cyanocobalamin (Vitamin B12 -) 1,000 mcg PO DAILY [facility] Last Admin: 06/11/17 10:02 Dose: 1,000 mcg Doxazosin Mesylate (Cardura -) 4 mg PO DAILY [facility] Last Admin: 06/11/17 10:01 Dose: 4 mg Guaifenesin (Mucinex Dm -) 2 tablet PO BID [facility] Last Admin: 06/11/17 10:03 Dose: 2 tablet Heparin Sodium (Porcine) (Heparin -) 5,000 unit SQ BID [facility] Last Admin: 06/11/17 10:01 Dose: 5,000 unit Hydralazine HCl (Apresoline -) 50 mg PO BID [facility] Last Admin: 06/11/17 10:02 Dose: 50 mg Insulin Aspart (Novolog Vial Sliding Scale -) 1 vial SQ ACHS [facility] PRN Reason: Protocol Insulin Detemir (Levemir Vial) 20 units SQ BID@0700,2200 [facility] Last Admin: 06/11/17 06:34 Dose: 20 units Multivitamins/Minerals/Vitamin C (Tab-A-Vit -) 1 tab PO DAILY [facility] Last Admin: 06/11/17 10:00 Dose: 1 tab Pantoprazole Sodium (Protonix -) 40 mg PO BID [facility] Last Admin: 06/11/17 10:00 Dose: 40 mg Prednisone (Deltasone -) 40 mg PO DAILY [facility] Last Admin: 06/11/17 10:02 Dose: 40 mg Fluticasone/Salmeterol (Advair 100mcg/50mcg -) 1 puff IH DAILY [facility] Last Admin: 06/11/17 10:02 Dose: 1 inhaler Sodium Bicarbonate (Sodium Bicarbonate -) 1,300 mg PO BID [facility] Last Admin: 06/11/17 10:00 Dose: 1,300 mg 66 year old gentleman with PMhx of CKD Stage 5 (Baseline Cr ~2.8), Bladder Ca s/ p Cystectomy with cystostomy, CVA, Hypertension, HLD, DM who presented with complaints of SOB and found to have MEKA and Metabolic acidosis. 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
[2017-06-11] MEDS ORDERED: amLODIPine BESYLATE 5 MG TABLET (FP) PO ONE (11:35)
[2017-06-11] MEDS: FUROSEMIDE 40 MG TABLET (FP) PO SCH (12:09)
--- NOTE | 2017-06-11 16:14 | PN ---
Progress Note (short form) - Note Progress Note: Chief Complaint: sob, cough S: No palps, dizzy, cp, sob. + LE edema. Outpatient PO Lasix started this morning. Norvasc increased from 5 to 10 mg this morning. Current Medications Albuterol Sulfate (Ventolin 0.083% Nebulizer Soln -) 1 amp NEB Q15M PRN PRN Reason: Dyspnea Last Admin: 06/08/17 19:53 Dose: 1 amp Albuterol/Ipratropium (Duoneb -) 1 amp NEB TIDR [facility] Last Admin: 06/11/17 14:07 Dose: 1 amp Amlodipine Besylate (Norvasc -) 10 mg PO DAILY [facility] Aspirin (Asa -) 81 mg PO DAILY [facility] Last Admin: 06/11/17 10:03 Dose: 81 mg Atorvastatin Calcium (Lipitor -) 10 mg PO HS [facility] Last Admin: 06/10/17 21:18 Dose: 10 mg Cholecalciferol (Vitamin D3 -) 2,000 unit PO DAILY [facility] Last Admin: 06/11/17 10:00 Dose: 2,000 unit Cyanocobalamin (Vitamin B12 -) 1,000 mcg PO DAILY [facility] Last Admin: 06/11/17 10:02 Dose: 1,000 mcg Doxazosin Mesylate (Cardura -) 4 mg PO DAILY [facility] Last Admin: 06/11/17 10:01 Dose: 4 mg Furosemide (Lasix -) 40 mg PO DAILY [facility] Last Admin: 06/11/17 12:09 Dose: 40 mg Guaifenesin (Mucinex Dm -) 2 tablet PO BID [facility] Last Admin: 06/11/17 10:03 Dose: 2 tablet Heparin Sodium (Porcine) (Heparin -) 5,000 unit SQ BID [facility] Last Admin: 06/11/17 10:01 Dose: 5,000 unit Hydralazine HCl (Apresoline -) 50 mg PO BID [facility] Last Admin: 06/11/17 10:02 Dose: 50 mg Insulin Aspart (Novolog Vial Sliding Scale -) 1 vial SQ ACHS [facility] PRN Reason: Protocol Last Admin: 06/11/17 12:08 Dose: 12 unit Insulin Detemir (Levemir Vial) 20 units SQ BID@0700,2200 [facility] Last Admin: 06/11/17 06:34 Dose: 20 units Multivitamins/Minerals/Vitamin C (Tab-A-Vit -) 1 tab PO DAILY [facility] Last Admin: 06/11/17 10:00 Dose: 1 tab Pantoprazole Sodium (Protonix -) 40 mg PO BID [facility] Last Admin: 06/11/17 10:00 Dose: 40 mg Prednisone (Deltasone -) 40 mg PO DAILY [facility] Last Admin: 06/11/17 10:02 Dose: 40 mg Fluticasone/Salmeterol (Advair 100mcg/50mcg -) 1 puff IH DAILY [facility] Last Admin: 06/11/17 10:02 Dose: 1 inhaler Sodium Bicarbonate (Sodium Bicarbonate -) 1,300 mg PO BID [facility] Last Admin: 06/11/17 10:00 Dose: 1,300 mg Vital Signs - 24 hr 06/10/17 06/10/17 06/10/17 18:40 20:36 21:00 Temperature 97.4 F L 98.2 F Pulse Rate 89 90 Respiratory 18 20 20 Rate Blood Pressure 149/78 157/87 O2 Sat by Pulse 99 Oximetry (%) 06/11/17 06/11/17 06/11/17 02:00 06:00 09:00 Temperature 98.2 F 98.2 F Pulse Rate 92 H 100 H Respiratory 20 20 20 Rate Blood Pressure 139/77 154/75 O2 Sat by Pulse 96 Oximetry (%) 06/11/17 06/11/17 10:00 15:07 Temperature 98 F 98.3 F Pulse Rate 89 90 Respiratory 20 20 Rate Blood Pressure 148/76 160/81 O2 Sat by Pulse Oximetry (%) Intake & Output 06/09/17 06/10/17 06/11/17 06/12/17 07:59 07:59 07:59 07:59 Intake Total 1300 700 Output Total 5900 4150 1000 1000 Balance -4600 -4150 -300 -1000 Weight 283 lb Constitutional: Yes: Well Nourished, No Distress Eyes: No: Sclera Icterus HENT: No: Nasal Congestion Neck: No: Decreased ROM Respiratory: Yes: diffuse exp wheeze bl; nl effort No: Accessory Muscle Use, Rales, Wheezes Gastrointestinal: Yes: Normal Bowel Sounds. No: Distention, Hepatomegaly, Palpable Mass, Tenderness Cardiovascular: Yes: Regular Rate and Rhythm (soft sounds). No: Rub JVD: No Carotid Bruit: No Heart Sounds: Yes: S1, S2. No: Gallop Murmur: No: Systolic Murmur, Diastolic Murmur Extremities: No: Cool, Cyanosis Edema: 1-2+ Peripheral Pulses: 2+ Left Carotid, 2+ Right Carotid, 2+ Left Doralis Pedis, 2+ Right Dorsalis Pedis Integumentary: No: Jaundice Neurological: Yes: Alert, Oriented (x3) Psychiatric: No: Agitated - Other Data Labs, Other Data: CBC, BMP 06/11/17 07:30 06/11/17 07:30 Laboratory Tests 06/11/17 07:30 Magnesium 2.6 H Echo 05/2017: mod conc lvh. nl lv fn. tds for rwma. nl rv size/fn. 1+ mr, nl rvsp. mod ao dilation (4.5 cm). no pericardial effusion Echo (08/04): nl LV/EF, no RWMA; mild LVH; nl RV; mild-mod MR, mild TR; RVSP 30- 40; mild dil aortic root; small peric effusion, + pleural effusion tele: sr, occ pvcs ecg 06/10/17: sr, nl intervals, no ischemic changes, lvh cxr: clear lungs Assessment/Plan 66y M with h/o htn, hl, ao dilation, CVA x2 (no definite etiology found--likely atherosclerotic), iddm, bladder CA who p/w sob, pleuritic cp and cough thought to be 2/2 copd exacerbation cp: -atypical, pleuritic, seems related to coughing --> improved -ecg, tele, ce's benign -has hx of pleuropericarditis 2016, no suggestion of this now presently. echo without signs of pericarditis. -cont tx of copd, sob, copd: -no signs chf and with MEKA on admit requiring IVF. cxr clear, bnp low -cont tx copd -06/11: worsening of LE edema s/p IVF on initial admit and then holding diuretics. Home po lasix resumed today. monitor for improvement. meka on ckd: baseline cr of 2.5 -s/p bicarb drip, renal following, - 06/11. Cr continues to improve. PO lasix resumed today. HTN: - 06/11 norvasc increased to 10 mg this morning. Still suboptimal control. In light of ao dilation, will add beta sharon. monitor for bronchospasm. HPL: -cont statin prior CVA x 2: -once in 2013 (clincal dx then, no MRI done), again 10/01 when held ASA for procedure -no etiology found incl with outpt 30d monitor showing no afib/flutter -likely due to uncontrolled RFs and atherosclerotic dz -cont prior sec prevention tx plan bladder Ca: -treated at [facility] [place] with prostatectomy aorta root aneurysm: -4.3cm (moderate dilation) on VÍCTOR 11/01, 4.5 cm on echo here -cont bp control, statin. will start lopressor 25 mg bid as mentioned above.
[2017-06-11] MEDS: METOPROLOL TARTRATE 25 MG TABLET (FP) PO SCH ×2 (16:39→22:15)
[2017-06-11] MEDS: ATORVASTATIN CA 10 MG TABLET (FP) PO SCH (22:14)
[2017-06-12] MEDS: INSULIN DETEMIR 100 UNITS/ML MDV SQ SCH ×2 (06:14→21:32)
[2017-06-12] MEDS: INSULIN SLIDING SCALE (NOVOLOG) 1 VIAL SQ SCH ×4 (06:16→23:16)
[2017-06-12] MEDS: ALBUTEROL SO4 2.5/IPRATROPIUM 0.5 INH SOL 3 ML VIAL.NEB. NEB SCH ×3 (06:54→22:50)
[2017-06-12 08:39] LABS: ANION GAP 11 (8-16); CALCIUM 9.4 mg/dL (8.5-10.1); CO2 20 mmol/L (21-32); CREATININE 2.8 mg/dL (0.7-1.3)
[2017-06-12 09:04] LABS: GLUCOSE,RANDOM 324 mg/dL (74-106)
[2017-06-12] MEDS ORDERED: PT OWN MED DRAWER 7, Y5N ONE ×2 (09:43→21:16)
[2017-06-12] MEDS: PANTOPRAZOLE 40 MG TABLET (FP) PO SCH ×2 (09:46→21:31)
[2017-06-12] MEDS: predniSONE 20 MG TABLET (UD) PO SCH (09:46)
[2017-06-12] MEDS: amLODIPine BESYLATE 10 MG TABLET (FP) PO SCH (09:46)
[2017-06-12] MEDS: CHOLECALCIFEROL (VITAMIN D3) 1,000 UNIT TABLET (FP) PO SCH (09:46)
[2017-06-12] MEDS: HEPARIN NA (PORCINE) 5,000 UNITS/ML 1ML VIAL SQ SCH ×2 (09:46→21:31)
[2017-06-12] MEDS: SODIUM BICARBONATE 650 MG TABLET PO SCH ×2 (09:46→21:31)
[2017-06-12] MEDS: ASPIRIN 81 MG CHEWABLE TABLETS PO SCH (09:46)
[2017-06-12] MEDS: hydrALAZINE HCL 50 MG TABLET (FP) PO SCH ×2 (09:47→21:31)
[2017-06-12] MEDS: CYANOCOBALAMIN 1,000 MCG TABLET (FP) PO SCH (09:47)
[2017-06-12] MEDS: FUROSEMIDE 40 MG TABLET (FP) PO SCH (09:47)
[2017-06-12] MEDS: METOPROLOL TARTRATE 25 MG TABLET (FP) PO SCH ×2 (09:47→21:31)
[2017-06-12] MEDS: FLUTICASONE/SALMETEROL 100 MCG/50 MCG DISKUS IH SCH (09:47)
[2017-06-12] MEDS: MULTIVITAMINS (DAILY MVI) TABLET (FP) PO SCH (09:47)
[2017-06-12] MEDS: guaiFENesin/D-METHORPHAN HB 1 EACH TAB.ER.12H PO SCH ×2 (09:48→21:33)
[2017-06-12] MEDS: DOXAZOSIN MESYLATE 4 MG TABLET PO SCH (09:48)
--- NOTE | 2017-06-12 10:20 | PN ---
Progress Note (short form) - Note Progress Note: S: No palps, dizzy. sob present but better. minimal cp with coughing. Current Medications Generic Name Dose Route Start Last Admin Trade Name Freq PRN Reason Stop Dose Admin Albuterol Sulfate 1 amp 06/07/17 17:33 06/08/17 19:53 Ventolin 0.083% Nebulizer Soln - NEB 1 amp Q15M PRN Administration Dyspnea Albuterol/Ipratropium 1 amp 06/08/17 15:15 06/12/17 06:54 Duoneb - NEB 1 amp TIDR SHANEL Administration Amlodipine Besylate 10 mg 06/12/17 10:00 06/12/17 09:46 Norvasc - PO 10 mg DAILY [facility] Administration Aspirin 81 mg 06/08/17 10:00 06/12/17 09:46 Asa - PO 81 mg DAILY [facility] Administration Atorvastatin Calcium 10 mg 06/08/17 22:00 06/11/17 22:14 Lipitor - PO 10 mg HS [facility]ANEL Administration Cholecalciferol 2,000 unit 06/08/17 10:00 06/12/17 09:46 Vitamin D3 - PO 2,000 unit DAILY [facility] Administration Cyanocobalamin 1,000 mcg 06/08/17 10:00 06/12/17 09:47 Vitamin B12 - PO 1,000 mcg DAILY [facility] Administration Doxazosin Mesylate 4 mg 06/08/17 10:00 06/12/17 09:48 Cardura - PO 4 mg DAILY [facility] Administration Furosemide 40 mg 06/11/17 11:15 06/12/17 09:47 Lasix - PO 40 mg DAILY [facility] Administration Guaifenesin 2 tablet 06/10/17 11:30 06/12/17 09:48 Mucinex Dm - PO 2 tablet BID [facility] Administration Heparin Sodium (Porcine) 5,000 unit 06/08/17 10:00 06/12/17 09:46 Heparin - SQ 5,000 unit BID [facility] Administration Hydralazine HCl 50 mg 06/08/17 06:45 06/12/17 09:47 Apresoline - PO 50 mg BID [facility] Administration Insulin Aspart 1 vial 06/12/17 11:00 Novolog Vial Sliding Scale - SQ ACHS [facility] Protocol Insulin Detemir 30 units 06/12/17 22:00 Levemir Vial SQ BID@0700,2200 [facility] Metoprolol Tartrate 25 mg 06/11/17 16:30 06/12/17 09:47 Lopressor - PO 25 mg BID [facility] Administration Multivitamins/Minerals/Vitamin C 1 tab 06/08/17 10:00 06/12/17 09:47 Tab-A-Vit - PO 1 tab DAILY [facility] Administration Pantoprazole Sodium 40 mg 06/08/17 10:00 06/12/17 09:46 Protonix - PO 40 mg BID [facility] Administration Prednisone 40 mg 06/10/17 11:30 06/12/17 09:46 Deltasone - PO 40 mg DAILY [facility] Administration Fluticasone/Salmeterol 1 puff 06/08/17 10:00 06/12/17 09:47 Advair 100mcg/50mcg - IH 1 inhaler DAILY [facility] Administration Sodium Bicarbonate 1,300 mg 06/09/17 15:00 06/12/17 09:46 Sodium Bicarbonate - PO 1,300 mg BID [facility] Administration Vital Signs Period Temp Pulse Resp BP Sys/Argueta Pulse Ox Last 24 Hr 97.8 F-98.8 F 79-100 20-20 132-174/78-95 98 Constitutional: Yes: Well Nourished, No Distress Eyes: No: Sclera Icterus HENT: No: Nasal Congestion Neck: No: Decreased ROM Respiratory: Yes: diffuse exp wheeze bl; nl effort No: Accessory Muscle Use, Rales, Wheezes Gastrointestinal: Yes: Normal Bowel Sounds. No: Distention, Hepatomegaly, Palpable Mass, Tenderness Cardiovascular: Yes: Regular Rate and Rhythm (soft sounds). No: Rub JVD: No Carotid Bruit: No Heart Sounds: Yes: S1, S2. No: Gallop Murmur: No: Systolic Murmur, Diastolic Murmur Extremities: No: Cool, Cyanosis Edema: 1+ Peripheral Pulses: 2+ Left Carotid, 2+ Right Carotid, 2+ Left Doralis Pedis, 2+ Right Dorsalis Pedis Integumentary: No: Jaundice Neurological: Yes: Alert, Oriented (x3) Psychiatric: No: Agitated - Other Data Labs, Other Data: CBC, BMP 06/11/17 07:30 06/12/17 07:35 Echo 05/2017: mod conc lvh. nl lv fn. tds for rwma. nl rv size/fn. 1+ mr, nl rvsp. mod ao dilation (4.5 cm). no pericardial effusion Echo (08/04): nl LV/EF, no RWMA; mild LVH; nl RV; mild-mod MR, mild TR; RVSP 30- 40; mild dil aortic root; small peric effusion, + pleural effusion tele: sr, occ pvcs ecg 06/10/17: sr, nl intervals, no ischemic changes, lvh cxr: clear lungs Assessment/Plan 66y M with h/o htn, hl, ao dilation, CVA x2 (no definite etiology found--likely atherosclerotic), iddm, bladder CA who p/w sob, pleuritic cp and cough thought to be 2/2 copd exacerbation cp: -atypical, pleuritic, seems related to coughing --> improved -ecg, tele, ce's benign -has hx of pleuropericarditis 2015, no suggestion of this now presently. echo without signs of pericarditis. -cont tx of copd sob, copd: -no signs chf and with MEKA on admit requiring IVF. cxr clear, bnp low -cont tx copd -06/11: worsening of LE edema s/p IVF on initial admit and then holding diuretics. Home po lasix resumed today. monitor for improvement. meka on ckd: baseline cr of 2.5 -cr improved HTN: - cont current meds. HPL: -cont statin prior CVA x 2: -once in 2013 (clincal dx then, no MRI done), again 10/01 when held ASA for procedure -no etiology found incl with outpt 30d monitor showing no afib/flutter -likely due to uncontrolled RFs and atherosclerotic dz -cont prior sec prevention tx plan bladder Ca: -treated at [facility] [place] with prostatectomy aorta root aneurysm: -4.3cm (moderate dilation) on VÍCTOR 11/01, 4.5 cm on echo here -cont bp control, bb, statin.
[2017-06-12 10:48] LABS: MCHC 32.8 g/dl (32.0-35.9); MEAN CELL VOLUME 82.2 fl (80-96); MEAN PLT VOLUME 7.7 fl (7.5-11.1); PLATELET COUNT 324 K/MM3 (134-434); WHITE BLOOD COUNT 16.4 K/mm3 (4.0-10.0)
[2017-06-12 11:04] LABS: ALBUMIN 3.5 g/dl (3.4-5.0); SGOT/AST 23 U/L (15-37); SGPT/ALT 37 U/L (12-78)
[2017-06-12 11:06] LABS: ALK PHOS 83 U/L (45-117); BILIRUBIN,TOTAL 0.4 mg/dL (0.2-1.0); TOT PROT 7.5 g/dl (6.4-8.2)
[2017-06-12] MEDS ORDERED: INSULIN (NOVOLOG) ASPART 100 UNITS/ML 10ML VIAL ONE ×2 (11:59→21:15)
--- NOTE | 2017-06-12 15:02 | PN ---
Physical Exam: SUBJECTIVE: Patient seen and examined at the bedside. He states his breathing is better, but at times can hear himself wheezing. OBJECTIVE: Patient is still having course lung sounds, some wheezing of RUL Will give an additional Solumedrol 20mg x 1 Consider increasing prednisone to 60mg daily Vital Signs Period Temp Pulse Resp BP Sys/Argueta Pulse Ox Last 24 Hr 97.8 F-98.8 F 75-100 19-20 132-174/78-95 98-98 GENERAL: The patient is awake, alert, and fully oriented, in no acute distress. HEAD: Normal with no signs of trauma. EYES: PERRL, extraocular movements intact, sclera anicteric, conjunctiva clear. No ptosis. ENT: Ears normal, nares patent, oropharynx clear without exudates, moist mucous membranes. NECK: Trachea midline, full range of motion, supple. LUNGS: scattered rhonchi, mild wheezing on right upper lobe HEART: Regular rate and rhythm, S1, S2 without murmur, rub or gallop. ABDOMEN: Soft, nontender, obese abdomen EXTREMITIES: +2 lower ext edema NEUROLOGICAL: Normal speech, gait not observed. PSYCH: Normal mood, normal affect. SKIN: Warm, dry, normal turgor, no rashes or lesions noted Laboratory Results - last 24 hr 06/11/17 06/11/17 06/11/17 12:00 16:27 22:11 WBC RBC Hgb Hct MCV MCH MCHC RDW Plt Count MPV Neutrophils % Lymphocytes % Sodium Potassium Chloride Carbon Dioxide Anion Gap BUN Creatinine Creat Clearance w eGFR POC Glucometer 355 360 430 Random Glucose Hemoglobin A1c % Calcium Total Bilirubin AST ALT Alkaline Phosphatase Total Protein Albumin 06/12/17 06/12/17 06/12/17 05:55 07:35 07:35 WBC RBC Hgb Hct MCV MCH MCHC RDW Plt Count MPV Neutrophils % Lymphocytes % Sodium 132 L Potassium 4.6 Chloride 101 Carbon Dioxide 20 L Anion Gap 11 BUN 54 H Creatinine 2.8 H Creat Clearance w eGFR Y POC Glucometer 360 Random Glucose 324 H* Hemoglobin A1c % 9.9 H D Calcium 9.4 Total Bilirubin 0.4 D AST 23 D ALT 37 D Alkaline Phosphatase 83 Total Protein 7.5 Albumin 3.5 06/12/17 06/12/17 10:20 11:23 WBC 16.4 H D RBC 4.08 Hgb 11.0 L Hct 33.5 L MCV 82.2 MCH 27.0 MCHC 32.8 RDW 15.0 Plt Count 324 MPV 7.7 Neutrophils % No Result Required. Lymphocytes % No Result Required. Sodium Potassium Chloride Carbon Dioxide Anion Gap BUN Creatinine Creat Clearance w eGFR POC Glucometer 308 Random Glucose Hemoglobin A1c % Calcium Total Bilirubin AST ALT Alkaline Phosphatase Total Protein Albumin Active Medications Generic Name Dose Route Start Last Admin Trade Name Freq PRN Reason Stop Dose Admin Albuterol Sulfate 1 amp 06/07/17 17:33 06/08/17 19:53 Ventolin 0.083% Nebulizer Soln - NEB 1 amp Q15M PRN Administration Dyspnea Albuterol/Ipratropium 1 amp 06/08/17 15:15 06/12/17 14:15 Duoneb - NEB 1 amp TIDR SHANEL Administration Amlodipine Besylate 10 mg 06/12/17 10:00 06/12/17 09:46 Norvasc - PO 10 mg DAILY SHANEL Administration Aspirin 81 mg 06/08/17 10:00 06/12/17 09:46 Asa - PO 81 mg DAILY SHANEL Administration Atorvastatin Calcium 10 mg 06/08/17 22:00 06/11/17 22:14 Lipitor - PO 10 mg HS SHANEL Administration Cholecalciferol 2,000 unit 06/08/17 10:00 06/12/17 09:46 Vitamin D3 - PO 2,000 unit DAILY SHANEL Administration Cyanocobalamin 1,000 mcg 06/08/17 10:00 06/12/17 09:47 Vitamin B12 - PO 1,000 mcg DAILY SHANEL Administration Doxazosin Mesylate 4 mg 06/08/17 10:00 06/12/17 09:48 Cardura - PO 4 mg DAILY SHANEL Administration Furosemide 40 mg 06/11/17 11:15 06/12/17 09:47 Lasix - PO 40 mg DAILY SHANEL Administration Guaifenesin 2 tablet 06/10/17 11:30 06/12/17 09:48 Mucinex Dm - PO 2 tablet BID SHANEL Administration Heparin Sodium (Porcine) 5,000 unit 06/08/17 10:00 06/12/17 09:46 Heparin - SQ 5,000 unit BID SHANEL Administration Hydralazine HCl 50 mg 06/08/17 06:45 06/12/17 09:47 Apresoline - PO 50 mg BID SHANEL Administration Insulin Aspart 1 vial 06/12/17 11:00 06/12/17 11:30 Novolog Vial Sliding Scale - SQ 12 unit ACHS SHANEL Administration Protocol Insulin Detemir 30 units 06/12/17 22:00 Levemir Vial SQ BID@0700,2200 SHANEL Metoprolol Tartrate 25 mg 06/11/17 16:30 06/12/17 09:47 Lopressor - PO 25 mg BID SHANEL Administration Multivitamins/Minerals/Vitamin C 1 tab 06/08/17 10:00 06/12/17 09:47 Tab-A-Vit - PO 1 tab DAILY SHANEL Administration Pantoprazole Sodium 40 mg 06/08/17 10:00 06/12/17 09:46 Protonix - PO 40 mg BID SHANEL Administration Prednisone 40 mg 06/10/17 11:30 06/12/17 09:46 Deltasone - PO 40 mg DAILY SHANEL Administration Fluticasone/Salmeterol 1 puff 06/08/17 10:00 06/12/17 09:47 Advair 100mcg/50mcg - IH 1 inhaler DAILY SHANEL Administration Sodium Bicarbonate 1,300 mg 06/09/17 15:00 06/12/17 09:46 Sodium Bicarbonate - PO 1,300 mg BID SHANEL Administration ASSESSMENT/PLAN: Patient is a 66 year old male with a significant past medical history of bladder CA s/p prostatectomy and urostomy, CVA x 2, diabetes mellitus, hypertension and hyperlipidemia. He presented to the ED on 06/08/17 with shortness of breath and productive cough. On admission patient reported that the productive cough started a few months ago and was put on Advair by his PCP with improvement. However, the cough returned and he became short of breath with exertion and at rest. He presented to the ER when his shortness of breath worsened. On exam, patient reports feeling better at rest and tolerating room air with supplemental oxygen as needed. Pulmonary COPD exacerbation, acute Patient on Advair, and scheduled duonebs Clinically improving, but still having some wheezing on right upper lobe Dyspnea on exertion, comfortable at rest Patient is still having course lung sounds, some wheezing of RUL Will give an additional Solumedrol 20mg x 1 Consider increasing prednisone to 60mg daily Will order Chest xray now Albuterol nebs as needed Supplemental oxygen as needed Respiratory pre and post prior to discharge Hematology Leukocytosis, acute Likely secondary to steriod use No signs of infection Monitor for now Nephrology Metabolic Acidosis, acute On sodium bicarbonarte 1300mg PO BID Renal following Hyponatremia @ 132 Renal following CKD MEKA on CKD, monitor labs Renal following Endocrine Diabetes, chronic Levermir increased to 30 units BID for elevated blood sugars and to achieve glycemic control Novolog adjusted for tighter blood sugar control Patient is on Humulin and Lantus at home On discharge may need to reinforce need for tighter glucose control Cardiology Hypertension, chronic, not at goal On Cardura, Norvasc, Hydralazine, Toprol added Monitor BP Chest pain, resolved Negative trops No chest pain or shortness of breath on exam Cardiology following F.E.N. Fluids: tolerating PO Electrolytes: monitor Nutrition: diabetic diet Prophylaxis DVT: Heparin GI: Protonix Disposition. full code. Visit type - Emergency Visit Emergency Visit: Yes ED Registration Date: 06/08/17 Care time: The patient presented to the Emergency Department on the above date and was hospitalized for further evaluation of their emergent condition. - New Patient This patient is new to me today: No - Critical Care Critical Care patient: No - Discharge Referral Referred to [facility] Med [facility].C.: No
[2017-06-12] MEDS ORDERED: methylPREDNISolone NA SUCC 40 MG/1 ML VIAL IVPUSH ONE (15:19)
--- NOTE | 2017-06-12 15:51 | PN ---
Progress Note (short form) - Note Progress Note: Renal Follow up for MEKA and Metabolic acidosis Pt seen and examined at the bedside continues to have midl cough and wheeze no cp, abd pain, N/V/D good urine output Vital Signs Temperature 98.1 F 06/12/17 08:00 Pulse Rate 75 06/12/17 08:00 Respiratory Rate 19 06/12/17 09:00 Blood Pressure 151/88 06/12/17 08:00 O2 Sat by Pulse Oximetry (%) 98 06/12/17 09:00 Intake & Output 06/09/17 06/10/17 06/11/17 06/12/17 23:59 23:59 23:59 23:59 Intake Total 6935 036 9442 Output Total 6300 2850 2800 1625 Balance -5100 -2150 -1240 -1625 NAD awake and alert CTA, no rales soft, Obese, NT/ND Trace to 1+ Le edema CBC, BMP 06/12/17 10:20 06/12/17 07:35 Current Medications Albuterol Sulfate (Ventolin 0.083% Nebulizer Soln -) 1 amp NEB Q15M PRN PRN Reason: Dyspnea Last Admin: 06/08/17 19:53 Dose: 1 amp Albuterol/Ipratropium (Duoneb -) 1 amp NEB TIDR [facility] Last Admin: 06/12/17 14:15 Dose: 1 amp Amlodipine Besylate (Norvasc -) 10 mg PO DAILY [facility] Last Admin: 06/12/17 09:46 Dose: 10 mg Aspirin (Asa -) 81 mg PO DAILY [facility] Last Admin: 06/12/17 09:46 Dose: 81 mg Atorvastatin Calcium (Lipitor -) 10 mg PO HS [facility] Last Admin: 06/11/17 22:14 Dose: 10 mg Cholecalciferol (Vitamin D3 -) 2,000 unit PO DAILY SHANEL Last Admin: 06/12/17 09:46 Dose: 2,000 unit Cyanocobalamin (Vitamin B12 -) 1,000 mcg PO DAILY [facility] Last Admin: 06/12/17 09:47 Dose: 1,000 mcg Doxazosin Mesylate (Cardura -) 4 mg PO DAILY [facility] Last Admin: 06/12/17 09:48 Dose: 4 mg Furosemide (Lasix -) 40 mg PO DAILY [facility] Last Admin: 06/12/17 09:47 Dose: 40 mg Guaifenesin (Mucinex Dm -) 2 tablet PO BID [facility] Last Admin: 06/12/17 09:48 Dose: 2 tablet Heparin Sodium (Porcine) (Heparin -) 5,000 unit SQ BID [facility] Last Admin: 06/12/17 09:46 Dose: 5,000 unit Hydralazine HCl (Apresoline -) 50 mg PO BID [facility] Last Admin: 06/12/17 09:47 Dose: 50 mg Insulin Aspart (Novolog Vial Sliding Scale -) 1 vial SQ ACHS [facility] PRN Reason: Protocol Last Admin: 06/12/17 11:30 Dose: 12 unit Insulin Detemir (Levemir Vial) 30 units SQ BID@0700,2200 [facility] Metoprolol Tartrate (Lopressor -) 25 mg PO BID [facility] Last Admin: 06/12/17 09:47 Dose: 25 mg Multivitamins/Minerals/Vitamin C (Tab-A-Vit -) 1 tab PO DAILY [facility] Last Admin: 06/12/17 09:47 Dose: 1 tab Pantoprazole Sodium (Protonix -) 40 mg PO BID [facility] Last Admin: 06/12/17 09:46 Dose: 40 mg Prednisone (Deltasone -) 40 mg PO DAILY [facility] Last Admin: 06/12/17 09:46 Dose: 40 mg Fluticasone/Salmeterol (Advair 100mcg/50mcg -) 1 puff IH DAILY [facility] Last Admin: 06/12/17 09:47 Dose: 1 inhaler Sodium Bicarbonate (Sodium Bicarbonate -) 1,300 mg PO BID [facility] Last Admin: 06/12/17 09:46 Dose: 1,300 mg 66 year old gentleman with PMhx of CKD Stage 5 (Baseline Cr ~2.8), Bladder Ca s/ p Cystectomy with cystostomy, CVA, Hypertension, HLD, DM who presented with complaints of SOB and found to have MEKA and Metabolic acidosis. 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
[2017-06-12 16:02] LABS: MYELOCYTE 1 % (0-2); PLATELET ESTIMATE ADEQUATE; TOTAL CELLS COUNTED 100
[2017-06-12] MEDS: ATORVASTATIN CA 10 MG TABLET (FP) PO SCH (21:31)
[2017-06-13] MEDS: INSULIN SLIDING SCALE (NOVOLOG) 1 VIAL SQ SCH ×4 (06:28→21:46)
[2017-06-13] MEDS: INSULIN DETEMIR 100 UNITS/ML MDV SQ SCH ×2 (06:29→21:47)
[2017-06-13] MEDS: ALBUTEROL SO4 2.5/IPRATROPIUM 0.5 INH SOL 3 ML VIAL.NEB. NEB SCH ×2 (06:54→14:20)
[2017-06-13 07:36] LABS: BASOPHIL 0.3 % (0-2.0); MCH 27.2 pg (25.7-33.7); MEAN CELL VOLUME 82.3 fl (80-96); NEUTROPHILS 89.5 % (42.8-82.8); PLATELET COUNT 336 K/MM3 (134-434); RDW 15.2 % (11.9-15.9); WHITE BLOOD COUNT 15.9 K/mm3 (4.0-10.0)
--- NOTE | 2017-06-13 08:13 | PN ---
Progress Note, Physician Chief Complaint: cp, sob History of Present Illness: L lateral pectoral pleuritic CP much improved vs prior sob improving cough improving leg swelling stable at longstanding baseline - Current Medication List Current Medications: Active Medications Albuterol/Ipratropium (Duoneb -) 1 amp NEB TIDR [facility] Last Admin: 06/13/17 06:54 Dose: 1 amp Amlodipine Besylate (Norvasc -) 10 mg PO DAILY [facility] Last Admin: 06/12/17 09:46 Dose: 10 mg Aspirin (Asa -) 81 mg PO DAILY [facility] Last Admin: 06/12/17 09:46 Dose: 81 mg Atorvastatin Calcium (Lipitor -) 10 mg PO HS [facility] Last Admin: 06/12/17 21:31 Dose: 10 mg Cholecalciferol (Vitamin D3 -) 2,000 unit PO DAILY [facility] Last Admin: 06/12/17 09:46 Dose: 2,000 unit Cyanocobalamin (Vitamin B12 -) 1,000 mcg PO DAILY [facility] Last Admin: 06/12/17 09:47 Dose: 1,000 mcg Doxazosin Mesylate (Cardura -) 4 mg PO DAILY [facility] Last Admin: 06/12/17 09:48 Dose: 4 mg Furosemide (Lasix -) 40 mg PO DAILY [facility] Last Admin: 06/12/17 09:47 Dose: 40 mg Guaifenesin (Mucinex Dm -) 2 tablet PO BID [facility] Last Admin: 06/12/17 21:33 Dose: 2 tablet Heparin Sodium (Porcine) (Heparin -) 5,000 unit SQ BID [facility] Last Admin: 06/12/17 21:31 Dose: 5,000 unit Hydralazine HCl (Apresoline -) 50 mg PO BID [facility] Last Admin: 06/12/17 21:31 Dose: 50 mg Insulin Aspart (Novolog Vial Sliding Scale -) 1 vial SQ ACHS [facility] PRN Reason: Protocol Last Admin: 06/13/17 06:28 Dose: 12 unit Insulin Detemir (Levemir Vial) 30 units SQ BID@0700,2200 [facility] Last Admin: 06/13/17 06:29 Dose: 30 units Metoprolol Tartrate (Lopressor -) 25 mg PO BID [facility] Last Admin: 06/12/17 21:31 Dose: 25 mg Multivitamins/Minerals/Vitamin C (Tab-A-Vit -) 1 tab PO DAILY [facility] Last Admin: 06/12/17 09:47 Dose: 1 tab Pantoprazole Sodium (Protonix -) 40 mg PO BID [facility] Last Admin: 06/12/17 21:31 Dose: 40 mg Prednisone (Deltasone -) 40 mg PO DAILY [facility] Last Admin: 06/12/17 09:46 Dose: 40 mg Fluticasone/Salmeterol (Advair 100mcg/50mcg -) 1 puff IH DAILY [facility] Last Admin: 06/12/17 09:47 Dose: 1 inhaler Sodium Bicarbonate (Sodium Bicarbonate -) 1,300 mg PO BID [facility] Last Admin: 06/12/17 21:31 Dose: 1,300 mg - Objective Vital Signs: Vital Signs Temperature 98.4 F 06/13/17 01:55 Pulse Rate 77 06/13/17 01:55 Respiratory Rate 18 06/13/17 01:55 Blood Pressure 147/78 06/13/17 01:55 O2 Sat by Pulse Oximetry (%) 98 06/12/17 21:00 Constitutional: Yes: No Distress, Calm, Obese Cardiovascular: Yes: Regular Rate and Rhythm (soft sounds (habitus/copd)), S1, S2. No: Gallop, Murmur Respiratory: Yes: Regular, Rhonchi, Wheezes. No: Accessory Muscle Use Extremities: No: Cold Edema: Yes (2+ pretib) Neurological: Yes: Alert, Oriented Psychiatric: No: Agitated Labs: CBC, BMP 06/13/17 06:00 INR, PTT INR 1.07 (0.82-1.09) 06/07/17 18:00 - ....Imaging EKG: Other (tele: NSR, NSVT x 5 beats) Assessment/Plan Echo 05/2017: mod conc lvh. nl lv fn. tds for rwma. nl rv size/fn. 1+ mr, nl rvsp. mod ao dilation (4.5 cm). 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 copd --> improved -ecg, tele, ce's benign -has hx of pleuropericarditis 2015, no clinical suspicion of this entity at present a.e. copd: -no signs chf and with MEKA on admit requiring IVF. cxr clear, bnp low -cont tx of copd per hospitalist -06/11: worsening of LE edema s/p IVF on initial admit and then holding diuretics. Home po lasix resumed. monitor lab trend - has chronic venous ins'y/ edema, pt feels currently stable at baseline VTach: -run of NSVT on tele -K good, Mag consistently > 2.0 here -normal LVEF -no suspicion of acute myocardial ischemia -cont bb as doing -monitor tele meka on ckd: baseline cr of 2.5 -cr improved, close to baseline -observe lab trend (s/p IVF initially, po lasix resumed now) HTN: - previously with longstanding uncontrolled HTN - bp's running mild to moderately elevated here - deferring RAAS blockers due to advanced CKD - observe bp trend, consider change metoprolol to bystolic or carvedilol for more potent vasodilatory effects if bp remains elevated HPL: -cont statin prior CVA x 2: -once in 2013 (clincal dx then, no MRI done), again 10/01 when held ASA for an invasive procedure -no etiology found incl with outpt 30d monitor showing no afib/flutter -likely due to uncontrolled RFs and atherosclerotic dz -cont prior sec prevention tx plan bladder Ca: -treated at [facility] [place] with prostatectomy aorta root aneurysm: -4.3cm (moderate dilation) on VÍCTOR 11/01, 4.5 cm on echo here -cont bp control, bb, statin.
[2017-06-13] MEDS ORDERED: INSULIN (NOVOLOG) ASPART 100 UNITS/ML 10ML VIAL ONE ×3 (08:16→21:40)
[2017-06-13] MEDS ORDERED: INSULIN DETEMIR 100 UNITS/ML MDV SQ ONE (08:17)
[2017-06-13 08:39] LABS: ALBUMIN 3.4 g/dl (3.4-5.0); ALK PHOS 84 U/L (45-117); ANION GAP 13 (8-16); BILIRUBIN,TOTAL 0.6 mg/dL (0.2-1.0); CALCIUM 9.2 mg/dL (8.5-10.1); CO2 15 mmol/L (21-32); SGOT/AST 20 U/L (15-37); SGPT/ALT 49 U/L (12-78); TOT PROT 7.7 g/dl (6.4-8.2)
[2017-06-13 09:17] LABS: GLUCOSE,RANDOM 347 mg/dL (74-106)
[2017-06-13] MEDS ORDERED: PT OWN MED DRAWER 7, Y5N ONE ×2 (10:25→21:40)
[2017-06-13] MEDS: METOPROLOL TARTRATE 25 MG TABLET (FP) PO SCH ×2 (10:32→21:46)
[2017-06-13] MEDS: hydrALAZINE HCL 50 MG TABLET (FP) PO SCH ×2 (10:32→21:46)
[2017-06-13] MEDS: FUROSEMIDE 40 MG TABLET (FP) PO SCH (10:32)
[2017-06-13] MEDS: PANTOPRAZOLE 40 MG TABLET (FP) PO SCH ×2 (10:32→21:46)
[2017-06-13] MEDS: SODIUM BICARBONATE 650 MG TABLET PO SCH ×2 (10:32→21:46)
[2017-06-13] MEDS: CHOLECALCIFEROL (VITAMIN D3) 1,000 UNIT TABLET (FP) PO SCH (10:32)
[2017-06-13] MEDS: CYANOCOBALAMIN 1,000 MCG TABLET (FP) PO SCH (10:32)
[2017-06-13] MEDS: MULTIVITAMINS (DAILY MVI) TABLET (FP) PO SCH (10:32)
[2017-06-13] MEDS: predniSONE 20 MG TABLET (UD) PO SCH (10:32)
[2017-06-13] MEDS: amLODIPine BESYLATE 10 MG TABLET (FP) PO SCH (10:32)
[2017-06-13] MEDS: ASPIRIN 81 MG CHEWABLE TABLETS PO SCH (10:32)
[2017-06-13] MEDS: DOXAZOSIN MESYLATE 4 MG TABLET PO SCH (10:33)
[2017-06-13] MEDS: guaiFENesin/D-METHORPHAN HB 1 EACH TAB.ER.12H PO SCH ×2 (10:33→21:47)
[2017-06-13] MEDS: HEPARIN NA (PORCINE) 5,000 UNITS/ML 1ML VIAL SQ SCH ×2 (10:33→21:46)
[2017-06-13] MEDS: FLUTICASONE/SALMETEROL 100 MCG/50 MCG DISKUS IH SCH (10:38)
--- NOTE | 2017-06-13 10:57 | PN ---
Progress Note, Physician History of Present Illness: Feeling a little better today. Not coughing as much, still has chest congestion - Current Medication List Current Medications: Active Medications Albuterol/Ipratropium (Duoneb -) 1 amp NEB TIDR [facility] Last Admin: 06/13/17 06:54 Dose: 1 amp Amlodipine Besylate (Norvasc -) 10 mg PO DAILY [facility] Last Admin: 06/13/17 10:32 Dose: 10 mg Aspirin (Asa -) 81 mg PO DAILY [facility] Last Admin: 06/13/17 10:32 Dose: 81 mg Atorvastatin Calcium (Lipitor -) 10 mg PO HS [facility] Last Admin: 06/12/17 21:31 Dose: 10 mg Cholecalciferol (Vitamin D3 -) 2,000 unit PO DAILY [facility] Last Admin: 06/13/17 10:32 Dose: 2,000 unit Cyanocobalamin (Vitamin B12 -) 1,000 mcg PO DAILY [facility] Last Admin: 06/13/17 10:32 Dose: 1,000 mcg Doxazosin Mesylate (Cardura -) 4 mg PO DAILY [facility] Last Admin: 06/13/17 10:33 Dose: 4 mg Furosemide (Lasix -) 40 mg PO DAILY [facility] Last Admin: 06/13/17 10:32 Dose: 40 mg Guaifenesin (Mucinex Dm -) 2 tablet PO BID [facility] Last Admin: 06/13/17 10:33 Dose: 2 tablet Heparin Sodium (Porcine) (Heparin -) 5,000 unit SQ BID [facility] Last Admin: 06/13/17 10:33 Dose: 5,000 unit Hydralazine HCl (Apresoline -) 50 mg PO BID [facility] Last Admin: 06/13/17 10:32 Dose: 50 mg Insulin Aspart (Novolog Vial Sliding Scale -) 1 vial SQ [facility] PRN Reason: Protocol Last Admin: 06/13/17 06:28 Dose: 12 unit Insulin Detemir (Levemir Vial) 30 units SQ BID@0700,2200 [facility] Last Admin: 06/13/17 06:29 Dose: 30 units Metoprolol Tartrate (Lopressor -) 25 mg PO BID [facility] Last Admin: 06/13/17 10:32 Dose: 25 mg Multivitamins/Minerals/Vitamin C (Tab-A-Vit -) 1 tab PO DAILY [facility] Last Admin: 06/13/17 10:32 Dose: 1 tab Pantoprazole Sodium (Protonix -) 40 mg PO BID [facility] Last Admin: 06/13/17 10:32 Dose: 40 mg Prednisone (Deltasone -) 40 mg PO DAILY [facility] Last Admin: 06/13/17 10:32 Dose: 40 mg Fluticasone/Salmeterol (Advair 100mcg/50mcg -) 1 puff IH DAILY [facility] Last Admin: 06/13/17 10:38 Dose: 1 inhaler Sodium Bicarbonate (Sodium Bicarbonate -) 1,300 mg PO BID [facility] Last Admin: 06/13/17 10:32 Dose: 1,300 mg - Objective Vital Signs: Vital Signs Temperature 98 F 06/13/17 10:42 Pulse Rate 77 06/13/17 10:42 Respiratory Rate 22 06/13/17 10:42 Blood Pressure 154/72 06/13/17 10:42 O2 Sat by Pulse Oximetry (%) 98 06/12/17 21:00 Constitutional: Yes: No Distress, Calm Neck: Yes: Supple, Trachea Midline Cardiovascular: Yes: Regular Rate and Rhythm, S1, S2. No: Murmur Respiratory: Yes: Regular, Rhonchi (bilaterally) Gastrointestinal: Yes: Normal Bowel Sounds, Soft, Abdomen, Obese. No: Distention, Tenderness Edema: Yes Edema: LLE: 2+, RLE: 2+ Neurological: Yes: Alert, Oriented Labs: CBC, BMP 06/13/17 06:00 06/13/17 06:00 INR, PTT INR 1.07 (0.82-1.09) 06/07/17 18:00 Assessment/Plan Current Active Problems COPD exacerbation (Acute) Chest pain (Acute) Chronic kidney disease (Acute) Diabetes (Acute) HLD (hyperlipidemia) (Acute) Hypoglycemia (Acute) Metabolic acidosis (Acute) Obesity (Acute) Bladder cancer, s/p Cystectomy with urostomy -cont steroid taper, nebs -if cont to improve, consider d/c in next day or 2
--- NOTE | 2017-06-13 13:50 | PN ---
Progress Note, Physician Chief Complaint: The patient seen in his room. Comfortable. Reports feeling better. The blood Glucose tends to run high History of Present Illness: 66 year old gentleman with PMhx of CKD Stage 5 (Baseline Cr ~2.8), Bladder Ca s/ p Cystectomy with cystectomy with ileal conduit, CVA, Hypertension, HLD, DM who presented with complaints of SOB and found to have MEKA and Metabolic acidosis. - Current Medication List Current Medications: Active Medications Albuterol/Ipratropium (Duoneb -) 1 amp NEB TIDR [facility] Last Admin: 06/13/17 06:54 Dose: 1 amp Amlodipine Besylate (Norvasc -) 10 mg PO DAILY [facility] Last Admin: 06/13/17 10:32 Dose: 10 mg Aspirin (Asa -) 81 mg PO DAILY [facility] Last Admin: 06/13/17 10:32 Dose: 81 mg Atorvastatin Calcium (Lipitor -) 10 mg PO HS [facility] Last Admin: 06/12/17 21:31 Dose: 10 mg Cholecalciferol (Vitamin D3 -) 2,000 unit PO DAILY [facility] Last Admin: 06/13/17 10:32 Dose: 2,000 unit Cyanocobalamin (Vitamin B12 -) 1,000 mcg PO DAILY [facility] Last Admin: 06/13/17 10:32 Dose: 1,000 mcg Doxazosin Mesylate (Cardura -) 4 mg PO DAILY [facility] Last Admin: 06/13/17 10:33 Dose: 4 mg Furosemide (Lasix -) 40 mg PO DAILY [facility] Last Admin: 06/13/17 10:32 Dose: 40 mg Guaifenesin (Mucinex Dm -) 2 tablet PO BID [facility] Last Admin: 06/13/17 10:33 Dose: 2 tablet Heparin Sodium (Porcine) (Heparin -) 5,000 unit SQ BID [facility] Last Admin: 06/13/17 10:33 Dose: 5,000 unit Hydralazine HCl (Apresoline -) 50 mg PO BID [facility] Last Admin: 06/13/17 10:32 Dose: 50 mg Insulin Aspart (Novolog Vial Sliding Scale -) 1 vial SQ [facility] PRN Reason: Protocol Last Admin: 06/13/17 11:44 Dose: 14 unit Insulin Detemir (Levemir Vial) 30 units SQ BID@0700,2200 [facility] Last Admin: 06/13/17 06:29 Dose: 30 units Metoprolol Tartrate (Lopressor -) 25 mg PO BID [facility] Last Admin: 06/13/17 10:32 Dose: 25 mg Multivitamins/Minerals/Vitamin C (Tab-A-Vit -) 1 tab PO DAILY [facility] Last Admin: 06/13/17 10:32 Dose: 1 tab Pantoprazole Sodium (Protonix -) 40 mg PO BID [facility] Last Admin: 06/13/17 10:32 Dose: 40 mg Prednisone (Deltasone -) 40 mg PO DAILY [facility] Last Admin: 06/13/17 10:32 Dose: 40 mg Fluticasone/Salmeterol (Advair 100mcg/50mcg -) 1 puff IH DAILY [facility] Last Admin: 06/13/17 10:38 Dose: 1 inhaler Sodium Bicarbonate (Sodium Bicarbonate -) 1,300 mg PO BID [facility] Last Admin: 06/13/17 10:32 Dose: 1,300 mg - Objective Vital Signs: Vital Signs Temperature 98 F 06/13/17 10:42 Pulse Rate 77 06/13/17 10:42 Respiratory Rate 22 06/13/17 10:42 Blood Pressure 154/72 06/13/17 10:42 O2 Sat by Pulse Oximetry (%) 98 06/12/17 21:00 Constitutional: Yes: No Distress, Calm Eyes: Yes: Conjunctiva Clear HENT: Yes: Normocephalic Neck: Yes: Trachea Midline Cardiovascular: Yes: S1, S2 Respiratory: Yes: CTA Bilaterally Gastrointestinal: Yes: Normal Bowel Sounds, Abdomen, Obese Genitourinary: Yes: Other (The patient has a normally functioning ileal conduit. ). No: CVA Tenderness - Left, CVA Tenderness - Right Musculoskeletal: Yes: Back Pain Labs: CBC, BMP 06/13/17 06:00 06/13/17 06:00 INR, PTT INR 1.07 (0.82-1.09) 06/07/17 18:00 Problem List - Problems (1) COPD exacerbation Code(s): J44.1 - CHRONIC OBSTRUCTIVE PULMONARY DISEASE W (ACUTE) EXACERBATION (2) Chest pain Code(s): R07.9 - CHEST PAIN, UNSPECIFIED (3) Chronic kidney disease Code(s): N18.9 - CHRONIC KIDNEY DISEASE, UNSPECIFIED Qualifiers: Chronic kidney disease stage: stage 4 (severe) Qualified Code(s): N18.4 - Chronic kidney disease, stage 4 (severe) (4) Diabetes Code(s): E11.9 - TYPE 2 DIABETES MELLITUS WITHOUT COMPLICATIONS Qualifiers: Diabetes mellitus type: type 2 Diabetes mellitus complication status: with kidney complications Diabetes mellitus complication detail: with chronic kidney disease Diabetes mellitus termite control technician insulin use: with termite control technician use Chronic kidney disease stage: stage 4 (severe) Qualified Code(s): E11.22 - Type 2 diabetes mellitus with diabetic chronic kidney disease; N18.4 - Chronic kidney disease, stage 4 (severe); N18.4 - Chronic kidney disease, stage 4 ( severe); N18.4 - Chronic kidney disease, stage 4 (severe); N18.4 - Chronic kidney disease, stage 4 (severe); Z79.4 - exterminator termite (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 of insulin; Z79.4 - nursing home (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 of insulin; Z79.4 - nursing home (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 of insulin; Z79.4 - exterminator termite (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 of insulin (5) Metabolic acidosis Code(s): E87.2 - ACIDOSIS (6) Obesity Code(s): E66.9 - OBESITY, UNSPECIFIED Qualifiers: Obesity type: due to excess calories Obesity classification: unspecified obesity classification Serious obesity comorbidity presence: unspecified whether serious comorbidity present Qualified Code(s): E66.09 - Other obesity due to excess calories (7) ARF (acute renal failure) Code(s): N17.9 - ACUTE KIDNEY FAILURE, UNSPECIFIED Qualifiers: Acute renal failure type: unspecified Qualified Code(s): N17.9 - Acute kidney failure, unspecified (8) Anemia Code(s): D64.9 - ANEMIA, UNSPECIFIED (9) Chest pain Code(s): R07.9 - CHEST PAIN, UNSPECIFIED Qualifiers: Chest pain type: chest pain on breathing Qualified Code(s): R07.1 - Chest pain on breathing (10) Hyperglycemia Code(s): R73.9 - HYPERGLYCEMIA, UNSPECIFIED Assessment/Plan 66 year old gentleman with PMhx of CKD Stage 5 (Baseline Cr ~2.8), Bladder Ca S/ p Cystectomy and ileal conduit. CVA, Hypertension, HLD, DM who presented with complaints of SOB and found to have MEKA and Metabolic acidosis. Acute on Chronic Renal Insufficiency The Renal functions marginally worsened since yesterday. ? Hemodynamic. Will watch. 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 Suboptimal Glycemic control. Will watch. Hypertension BP in acceptable range. Continue Hydralazine and Amlodipine. Titrate meds to goal BP < 140/90 Will monitor the Renal functions with you. Thank you. Mariangel Kirkland MD
[2017-06-13] MEDS: ATORVASTATIN CA 10 MG TABLET (FP) PO SCH (21:46)
[2017-06-13] MEDS ORDERED: INSULIN (NOVOLOG) ASPART 100 UNITS/ML 10ML VIAL SQ ONE (22:45)
[2017-06-14] MEDS: INSULIN DETEMIR 100 UNITS/ML MDV SQ SCH ×2 (07:02→21:38)
[2017-06-14] MEDS: INSULIN SLIDING SCALE (NOVOLOG) 1 VIAL SQ SCH ×4 (07:03→21:39)
[2017-06-14] MEDS ORDERED: INSULIN (NOVOLOG) ASPART 100 UNITS/ML 10ML VIAL ONE ×3 (07:10→21:28)
[2017-06-14 07:37] LABS: MCH 27.4 pg (25.7-33.7); MCHC 32.7 g/dl (32.0-35.9); MEAN CELL VOLUME 83.8 fl (80-96); MEAN PLT VOLUME 7.8 fl (7.5-11.1); PLATELET COUNT 350 K/MM3 (134-434); RDW 15.7 % (11.9-15.9); WHITE BLOOD COUNT 17.2 K/mm3 (4.0-10.0)
[2017-06-14] MEDS ORDERED: PT OWN MED DRAWER 7, Y5N ONE ×3 (08:39→21:29)
[2017-06-14 08:40] LABS: TOTAL CELLS COUNTED 100
[2017-06-14 08:41] LABS: METAMYELOCYTE 3 % (0-2); MYELOCYTE 4 % (0-2)
[2017-06-14 08:42] LABS: PLATELET ESTIMATE ADEQUATE
[2017-06-14 09:03] LABS: ALBUMIN 3.6 g/dl (3.4-5.0); ALK PHOS 88 U/L (45-117); ANION GAP 13 (8-16); BILIRUBIN,TOTAL 0.4 mg/dL (0.2-1.0); CALCIUM 9.4 mg/dL (8.5-10.1); CO2 15 mmol/L (21-32); CREATININE 3.3 mg/dL (0.7-1.3); SGOT/AST 15 U/L (15-37); SGPT/ALT 53 U/L (12-78); TOT PROT 8.1 g/dl (6.4-8.2)
--- NOTE | 2017-06-14 09:14 | PN ---
Progress Note, Physician Chief Complaint: sob History of Present Illness: sob much improved. coughing a bit still. wheezed last night, not today no cp leg swelling stable - Current Medication List Current Medications: Active Medications Amlodipine Besylate (Norvasc -) 10 mg PO DAILY [facility] Last Admin: 06/13/17 10:32 Dose: 10 mg Aspirin (Asa -) 81 mg PO DAILY [facility] Last Admin: 06/13/17 10:32 Dose: 81 mg Atorvastatin Calcium (Lipitor -) 10 mg PO HS [facility] Last Admin: 06/13/17 21:46 Dose: 10 mg Cholecalciferol (Vitamin D3 -) 2,000 unit PO DAILY [facility] Last Admin: 06/13/17 10:32 Dose: 2,000 unit Cyanocobalamin (Vitamin B12 -) 1,000 mcg PO DAILY [facility] Last Admin: 06/13/17 10:32 Dose: 1,000 mcg Doxazosin Mesylate (Cardura -) 4 mg PO DAILY [facility] Last Admin: 06/13/17 10:33 Dose: 4 mg Furosemide (Lasix -) 40 mg PO DAILY [facility] Last Admin: 06/13/17 10:32 Dose: 40 mg Guaifenesin (Mucinex Dm -) 2 tablet PO BID [facility] Last Admin: 06/13/17 21:47 Dose: 2 tablet Heparin Sodium (Porcine) (Heparin -) 5,000 unit SQ BID [facility] Last Admin: 06/13/17 21:46 Dose: 5,000 unit Hydralazine HCl (Apresoline -) 50 mg PO BID [facility] Last Admin: 06/13/17 21:46 Dose: 50 mg Insulin Aspart (Novolog Vial Sliding Scale -) 1 vial SQ [facility] PRN Reason: Protocol Last Admin: 06/14/17 07:03 Dose: 16 unit Insulin Detemir (Levemir Vial) 30 units SQ BID@0700,2200 [facility] Last Admin: 06/14/17 07:02 Dose: 30 units Metoprolol Tartrate (Lopressor -) 25 mg PO BID [facility] Last Admin: 06/13/17 21:46 Dose: 25 mg Multivitamins/Minerals/Vitamin C (Tab-A-Vit -) 1 tab PO DAILY [facility] Last Admin: 06/13/17 10:32 Dose: 1 tab Pantoprazole Sodium (Protonix -) 40 mg PO BID [facility] Last Admin: 06/13/17 21:46 Dose: 40 mg Prednisone (Deltasone -) 40 mg PO DAILY [facility] Last Admin: 06/13/17 10:32 Dose: 40 mg Fluticasone/Salmeterol (Advair 100mcg/50mcg -) 1 puff IH DAILY [facility] Last Admin: 06/13/17 10:38 Dose: 1 inhaler Sodium Bicarbonate (Sodium Bicarbonate -) 1,300 mg PO BID [facility] Last Admin: 06/13/17 21:46 Dose: 1,300 mg - Objective Vital Signs: Vital Signs Temperature 98.1 F 06/14/17 05:47 Pulse Rate 75 06/14/17 05:47 Respiratory Rate 18 06/14/17 05:47 Blood Pressure 159/89 06/14/17 05:47 O2 Sat by Pulse Oximetry (%) 98 06/13/17 21:00 Constitutional: Yes: No Distress, Calm, Obese Cardiovascular: Yes: Regular Rate and Rhythm, S1, S2. No: Gallop, Murmur Respiratory: Yes: Regular, Rhonchi. No: Accessory Muscle Use, Rales, Wheezes Extremities: No: Cold Edema: Yes (2+ pretib) Neurological: Yes: Alert, Oriented Psychiatric: No: Agitated Labs: CBC, BMP 06/14/17 06:10 INR, PTT INR 1.07 (0.82-1.09) 06/07/17 18:00 - ....Imaging EKG: Other (tele: NSR, no VT) Assessment/Plan Echo 05/2017: mod conc lvh. nl lv fn. tds for rwma. nl rv size/fn. 1+ mr, nl rvsp. mod ao dilation (4.5 cm). 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 copd --> improved -ecg, tele, ce's benign -has hx of pleuropericarditis 2015, no clinical suspicion of this entity at present a.e. copd: -no signs chf and with MEKA on admit requiring IVF. cxr clear, bnp low -sob and cough much improved--tx of copd per hospitalist VTach: -run of NSVT on tele -K good, Mag consistently > 2.0 here -normal LVEF -no suspicion of acute myocardial ischemia -cont bb as doing -no further episodes--d/c tele meka on ckd: baseline cr of 2.5 -cr improved, close to baseline -observe lab trend (s/p IVF initially, po lasix resumed now) HTN with hypertensive heart dz, venous ins'y/chronic leg swelling: - signif LVH on echo, ? diast chf in past (vs obese with sob from copd/ deconditioning and chronic venous ins'y edema) - doubt chf at present - creat slightly worse today - dosing of lasix is primarily for edema here--ok to hold it if needed, defer to renal - previously with longstanding uncontrolled HTN, poor office f/u with me - bp's running mild to moderately elevated here - deferring RAAS blockers due to advanced CKD - observe bp trend, try change metoprolol to bystolic for more potent vasodilatory effects if bp remains elevated HPL: -cont statin prior CVA x 2: -once in 2013 (clincal dx then, no MRI done), again 10/01 when held ASA for an invasive procedure -no etiology found incl with outpt 30d monitor showing no afib/flutter -likely due to uncontrolled RFs and atherosclerotic dz -cont prior sec prevention tx plan bladder Ca: -treated at [facility] [place] with prostatectomy aorta root aneurysm: -4.3 cm (moderate dilation) on VÍCTOR 11/01, 4.5 cm on echo here -cont bp control as doing, bb, statin. NO INDICATION FOR CONTINUED TELE MONITORING--D/C'D
[2017-06-14] MEDS ORDERED: INSULIN DETEMIR 100 UNITS/ML MDV SQ ONE (09:17)
--- NOTE | 2017-06-14 09:53 | PN ---
Progress Note, Physician - Current Medication List Current Medications: Active Medications Amlodipine Besylate (Norvasc -) 10 mg PO DAILY [facility] Last Admin: 06/13/17 10:32 Dose: 10 mg Aspirin (Asa -) 81 mg PO DAILY [facility] Last Admin: 06/13/17 10:32 Dose: 81 mg Atorvastatin Calcium (Lipitor -) 10 mg PO HS [facility] Last Admin: 06/13/17 21:46 Dose: 10 mg Cholecalciferol (Vitamin D3 -) 2,000 unit PO DAILY [facility] Last Admin: 06/13/17 10:32 Dose: 2,000 unit Cyanocobalamin (Vitamin B12 -) 1,000 mcg PO DAILY [facility] Last Admin: 06/13/17 10:32 Dose: 1,000 mcg Doxazosin Mesylate (Cardura -) 4 mg PO DAILY [facility] Last Admin: 06/13/17 10:33 Dose: 4 mg Furosemide (Lasix -) 40 mg PO DAILY [facility] Last Admin: 06/13/17 10:32 Dose: 40 mg Guaifenesin (Mucinex Dm -) 2 tablet PO BID [facility] Last Admin: 06/13/17 21:47 Dose: 2 tablet Heparin Sodium (Porcine) (Heparin -) 5,000 unit SQ BID [facility] Last Admin: 06/13/17 21:46 Dose: 5,000 unit Hydralazine HCl (Apresoline -) 50 mg PO BID [facility] Last Admin: 06/13/17 21:46 Dose: 50 mg Insulin Aspart (Novolog Vial Sliding Scale -) 1 vial SQ ACHS [facility] PRN Reason: Protocol Insulin Detemir (Levemir Vial) 45 units SQ BID@0700,2200 [facility] Multivitamins/Minerals/Vitamin C (Tab-A-Vit -) 1 tab PO DAILY [facility] Last Admin: 06/13/17 10:32 Dose: 1 tab Nebivolol (Bystolic -) 10 mg PO DAILY [facility] Pantoprazole Sodium (Protonix -) 40 mg PO BID [facility] Last Admin: 06/13/17 21:46 Dose: 40 mg Prednisone (Deltasone -) 40 mg PO DAILY [facility] Last Admin: 06/13/17 10:32 Dose: 40 mg Fluticasone/Salmeterol (Advair 100mcg/50mcg -) 1 puff IH DAILY [facility] Last Admin: 06/13/17 10:38 Dose: 1 inhaler Sodium Bicarbonate (Sodium Bicarbonate -) 1,300 mg PO BID [facility] Last Admin: 06/13/17 21:46 Dose: 1,300 mg - Objective Vital Signs: Vital Signs Temperature 98.1 F 06/14/17 05:47 Pulse Rate 75 06/14/17 05:47 Respiratory Rate 18 06/14/17 05:47 Blood Pressure 159/89 06/14/17 05:47 O2 Sat by Pulse Oximetry (%) 98 06/13/17 21:00 Constitutional: Yes: No Distress, Calm Eyes: Yes: Conjunctiva Clear, EOM Intact, PERRL HENT: Yes: Atraumatic, Normocephalic Neck: Yes: Supple, Trachea Midline Cardiovascular: Yes: Regular Rate and Rhythm, S1, S2. No: Murmur Respiratory: Yes: Regular, Rhonchi. No: Rales, Wheezes Gastrointestinal: Yes: Normal Bowel Sounds, Soft, Abdomen, Obese. No: Distention, Tenderness Edema: Yes Edema: LLE: 2+, RLE: 2+ Neurological: Yes: Alert, Oriented Labs: CBC, BMP 06/14/17 06:10 06/14/17 06:10 INR, PTT INR 1.07 (0.82-1.09) 06/07/17 18:00 Assessment/Plan Current Active Problems COPD exacerbation (Acute) Chest pain (Acute) Chronic kidney disease (Acute) Diabetes (Acute) HLD (hyperlipidemia) (Acute) Hypoglycemia (Acute) Metabolic acidosis (Acute) Obesity (Acute) Bladder cancer, s/p Cystectomy with urostomy -cont steroid taper, nebs -creatinine increasing again, along with BUN -will hold lasix -renal following -sliding scale and levemir insulin adjusted for continually high blood sugars -consider d/c home tomorrow if improved
[2017-06-14] MEDS: CHOLECALCIFEROL (VITAMIN D3) 1,000 UNIT TABLET (FP) PO SCH (10:18)
[2017-06-14] MEDS: MULTIVITAMINS (DAILY MVI) TABLET (FP) PO SCH (10:18)
[2017-06-14] MEDS: CYANOCOBALAMIN 1,000 MCG TABLET (FP) PO SCH (10:18)
[2017-06-14] MEDS: amLODIPine BESYLATE 10 MG TABLET (FP) PO SCH (10:18)
[2017-06-14] MEDS: SODIUM BICARBONATE 650 MG TABLET PO SCH ×2 (10:18→21:38)
[2017-06-14] MEDS: NEBIVOLOL 10 MG TABLET (FP) PO SCH ×2 (10:18)
[2017-06-14] MEDS: DOXAZOSIN MESYLATE 4 MG TABLET PO SCH (10:18)
[2017-06-14] MEDS: hydrALAZINE HCL 50 MG TABLET (FP) PO SCH ×2 (10:19→21:38)
[2017-06-14] MEDS: ASPIRIN 81 MG CHEWABLE TABLETS PO SCH (10:19)
[2017-06-14] MEDS: PANTOPRAZOLE 40 MG TABLET (FP) PO SCH ×2 (10:19→21:37)
[2017-06-14] MEDS: FLUTICASONE/SALMETEROL 100 MCG/50 MCG DISKUS IH SCH (10:19)
[2017-06-14] MEDS: predniSONE 20 MG TABLET (UD) PO SCH (10:19)
[2017-06-14] MEDS: guaiFENesin/D-METHORPHAN HB 1 EACH TAB.ER.12H PO SCH ×2 (10:20→21:38)
[2017-06-14] MEDS: HEPARIN NA (PORCINE) 5,000 UNITS/ML 1ML VIAL SQ SCH ×2 (10:20→21:38)
[2017-06-14] MEDS: FUROSEMIDE 40 MG TABLET (FP) PO SCH (10:34)
[2017-06-14 11:02] LABS: GLUCOSE,RANDOM 414 mg/dL (74-106)
--- NOTE | 2017-06-14 15:40 | PN ---
Progress Note, Physician Chief Complaint: The patient seen in his room. Comfortable. Reports feeling much better. Reports feeling better. The blood Glucose tends to run high ? possibly related to the Steroids. History of Present Illness: 66 year old gentleman with PMhx of CKD Stage 5 (Baseline Cr ~2.8), Bladder Ca s/ p Cystectomy with cystectomy with ileal conduit, CVA, Hypertension, HLD, DM who presented with complaints of SOB and found to have MEKA and Metabolic acidosis. - Current Medication List Current Medications: Active Medications Amlodipine Besylate (Norvasc -) 10 mg PO DAILY [facility] Last Admin: 06/14/17 10:18 Dose: 10 mg Aspirin (Asa -) 81 mg PO DAILY [facility] Last Admin: 06/14/17 10:19 Dose: 81 mg Atorvastatin Calcium (Lipitor -) 10 mg PO HS [facility] Last Admin: 06/13/17 21:46 Dose: 10 mg Cholecalciferol (Vitamin D3 -) 2,000 unit PO DAILY [facility] Last Admin: 06/14/17 10:18 Dose: 2,000 unit Cyanocobalamin (Vitamin B12 -) 1,000 mcg PO DAILY [facility] Last Admin: 06/14/17 10:18 Dose: 1,000 mcg Doxazosin Mesylate (Cardura -) 4 mg PO DAILY [facility] Last Admin: 06/14/17 10:18 Dose: 4 mg Furosemide (Lasix -) 40 mg PO DAILY [facility] Last Admin: 06/14/17 10:34 Dose: 40 mg Guaifenesin (Mucinex Dm -) 2 tablet PO BID [facility] Last Admin: 06/14/17 10:20 Dose: 2 tablet Heparin Sodium (Porcine) (Heparin -) 5,000 unit SQ BID [facility] Last Admin: 06/14/17 10:20 Dose: 5,000 unit Hydralazine HCl (Apresoline -) 50 mg PO BID [facility] Last Admin: 06/14/17 10:19 Dose: 50 mg Insulin Aspart (Novolog Vial Sliding Scale -) 1 vial SQ ACHS [facility] PRN Reason: Protocol Last Admin: 06/14/17 11:48 Dose: 16 units Insulin Detemir (Levemir Vial) 45 units SQ BID@0700,2200 [facility] Multivitamins/Minerals/Vitamin C (Tab-A-Vit -) 1 tab PO DAILY [facility] Last Admin: 06/14/17 10:18 Dose: 1 tab Nebivolol (Bystolic -) 10 mg PO DAILY [facility] Last Admin: 06/14/17 10:18 Dose: 10 mg Pantoprazole Sodium (Protonix -) 40 mg PO BID [facility] Last Admin: 06/14/17 10:19 Dose: 40 mg Prednisone (Deltasone -) 40 mg PO DAILY [facility] Last Admin: 06/14/17 10:19 Dose: 40 mg Fluticasone/Salmeterol (Advair 100mcg/50mcg -) 1 puff IH DAILY [facility] Last Admin: 06/14/17 10:19 Dose: 1 inhaler Sodium Bicarbonate (Sodium Bicarbonate -) 1,300 mg PO BID [facility] Last Admin: 06/14/17 10:18 Dose: 1,300 mg - Objective Vital Signs: Vital Signs Temperature 97.9 F 06/14/17 14:01 Pulse Rate 69 06/14/17 14:01 Respiratory Rate 22 06/14/17 14:01 Blood Pressure 132/67 06/14/17 14:01 O2 Sat by Pulse Oximetry (%) 98 06/13/17 21:00 Constitutional: Yes: No Distress Eyes: Yes: Conjunctiva Clear HENT: Yes: Normocephalic Cardiovascular: Yes: S1, S2 Respiratory: Yes: CTA Bilaterally Gastrointestinal: Yes: Normal Bowel Sounds, Soft, Abdomen, Obese Musculoskeletal: Yes: Joint Stiffness Neurological: Yes: Oriented Labs: CBC, BMP 06/14/17 06:10 06/14/17 06:10 INR, PTT INR 1.07 (0.82-1.09) 06/07/17 18:00 Problem List - Problems (1) COPD exacerbation Code(s): J44.1 - CHRONIC OBSTRUCTIVE PULMONARY DISEASE W (ACUTE) EXACERBATION (2) Chest pain Code(s): R07.9 - CHEST PAIN, UNSPECIFIED (3) Chronic kidney disease Code(s): N18.9 - CHRONIC KIDNEY DISEASE, UNSPECIFIED Qualifiers: Chronic kidney disease stage: stage 4 (severe) Qualified Code(s): N18.4 - Chronic kidney disease, stage 4 (severe) (4) Diabetes Code(s): E11.9 - TYPE 2 DIABETES MELLITUS WITHOUT COMPLICATIONS Qualifiers: Diabetes mellitus type: type 2 Diabetes mellitus complication status: with kidney complications Diabetes mellitus complication detail: with chronic kidney disease Diabetes mellitus superintendent terminal insulin use: with alf use Chronic kidney disease stage: stage 4 (severe) Qualified Code(s): E11.22 - Type 2 diabetes mellitus with diabetic chronic kidney disease; N18.4 - Chronic kidney disease, stage 4 (severe); N18.4 - Chronic kidney disease, stage 4 ( severe); N18.4 - Chronic kidney disease, stage 4 (severe); N18.4 - Chronic kidney disease, stage 4 (severe); Z79.4 - superintendent terminal (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 of insulin; Z79.4 - FPC (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 of insulin; Z79.4 - superintendent terminal (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 of insulin; Z79.4 - superintendent terminal (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 of insulin (5) Metabolic acidosis Code(s): E87.2 - ACIDOSIS (6) Obesity Code(s): E66.9 - OBESITY, UNSPECIFIED Qualifiers: Obesity type: due to excess calories Obesity classification: unspecified obesity classification Serious obesity comorbidity presence: unspecified whether serious comorbidity present Qualified Code(s): E66.09 - Other obesity due to excess calories (7) ARF (acute renal failure) Code(s): N17.9 - ACUTE KIDNEY FAILURE, UNSPECIFIED Qualifiers: Acute renal failure type: unspecified Qualified Code(s): N17.9 - Acute kidney failure, unspecified (8) Anemia Code(s): D64.9 - ANEMIA, UNSPECIFIED (9) Chest pain Code(s): R07.9 - CHEST PAIN, UNSPECIFIED Qualifiers: Chest pain type: chest pain on breathing Qualified Code(s): R07.1 - Chest pain on breathing (10) Hyperglycemia Code(s): R73.9 - HYPERGLYCEMIA, UNSPECIFIED Assessment/Plan 66 year old gentleman with PMhx of CKD Stage 5 (Baseline Cr ~2.8), Bladder Ca S/ p Cystectomy and ileal conduit. CVA, Hypertension, HLD, DM who presented with complaints of SOB and found to have MEKA and Metabolic acidosis. Acute on Chronic Renal Insufficiency The Renal functions marginally worsened since yesterday. ? Hemodynamic. Noted discontinuation of Lasix. Will watch. 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 Continue oral Sodium Bicarbonate Goal Bicarb > 22 COPD..continue Steroids as per primary Diabetes mellitus... Suboptimal Glycemic control. Will watch. Hypertension BP in acceptable range. Continue Hydralazine and Amlodipine. Will monitor the Renal functions with you. Thank you. Mariangel Kirkland MD
[2017-06-14] MEDS: ATORVASTATIN CA 10 MG TABLET (FP) PO SCH (21:38)
[2017-06-15] MEDS: INSULIN DETEMIR 100 UNITS/ML MDV SQ SCH ×2 (06:38→23:00)
[2017-06-15] MEDS: INSULIN SLIDING SCALE (NOVOLOG) 1 VIAL SQ SCH ×4 (06:38→23:04)
[2017-06-15] MEDS ORDERED: INSULIN (NOVOLOG) ASPART 100 UNITS/ML 10ML VIAL ONE ×3 (06:46→17:13)
[2017-06-15 07:50] LABS: MCH 27.2 pg (25.7-33.7); MCHC 32.9 g/dl (32.0-35.9); MEAN CELL VOLUME 82.9 fl (80-96); PLATELET COUNT 330 K/MM3 (134-434); RDW 15.4 % (11.9-15.9); WHITE BLOOD COUNT 18.3 K/mm3 (4.0-10.0)
[2017-06-15 08:23] LABS: ALBUMIN 3.6 g/dl (3.4-5.0); ALK PHOS 83 U/L (45-117); ANION GAP 14 (8-16); BILIRUBIN,TOTAL 0.4 mg/dL (0.2-1.0); CALCIUM 9.7 mg/dL (8.5-10.1); CO2 17 mmol/L (21-32); CREATININE 3.3 mg/dL (0.7-1.3); SGOT/AST 12 U/L (15-37); SGPT/ALT 43 U/L (12-78); TOT PROT 7.5 g/dl (6.4-8.2)
[2017-06-15 08:46] LABS: GLUCOSE,RANDOM 355 mg/dL (74-106)
--- NOTE | 2017-06-15 09:29 | PN ---
Physical Exam: SUBJECTIVE: Patient seen and examined NO newcomplaints wants to go home denies SOB Or chest pain OBJECTIVE: Vital Signs Period Temp Pulse Resp BP Sys/Argueta Pulse Ox Last 24 Hr 97.5 F-98.4 F 65-73 22-23 132-150/67-85 98 GENERAL: The patient is awake, alert, and fully oriented, in no acute distress. HEAD: Normal with no signs of trauma. EYES: PERRL, extraocular movements intact, sclera anicteric, conjunctiva clear. No ptosis. ENT: Ears normal, nares patent, oropharynx clear without exudates, moist mucous membranes. NECK: Trachea midline, full range of motion, supple. LUNGS: Breath sounds equal, clear to auscultation bilaterally, no wheezes, no crackles, no accessory muscle use. HEART: Regular rate and rhythm, S1, S2 without murmur, rub or gallop. ABDOMEN: Soft, nontender, nondistended, normoactive bowel sounds, no guarding, no rebound, no hepatosplenomegaly, no masses. EXTREMITIES: 2 plus edema NEUROLOGICAL: Cranial nerves II through XII grossly intact. Normal speech, gait not observed. PSYCH: Normal mood, normal affect. SKIN: Warm, dry, normal turgor, no rashes or lesions noted Laboratory Results - last 24 hr 06/12/17 06/13/17 06/13/17 21:23 16:49 20:49 WBC RBC Hgb Hct MCV MCH MCHC RDW Plt Count MPV Neutrophils % Lymphocytes % Sodium Potassium Chloride Carbon Dioxide Anion Gap BUN Creatinine Creat Clearance w eGFR POC Glucometer 440 422 484 Random Glucose Calcium Total Bilirubin AST ALT Alkaline Phosphatase Total Protein Albumin 06/14/17 06/14/17 06/14/17 05:34 06:10 11:40 WBC RBC Hgb Hct MCV MCH MCHC RDW Plt Count MPV Neutrophils % Lymphocytes % Sodium 129 L Potassium 5.0 Chloride 101 Carbon Dioxide 15 L Anion Gap 13 BUN 72 H Creatinine 3.3 H Creat Clearance w eGFR 18.74 POC Glucometer 421 392 Random Glucose 414 H* Calcium 9.4 Total Bilirubin 0.4 D AST 15 D ALT 53 Alkaline Phosphatase 88 Total Protein 8.1 Albumin 3.6 06/14/17 06/14/17 06/15/17 16:52 21:36 05:35 WBC 18.3 H RBC 4.32 Hgb 11.8 Hct 35.8 MCV 82.9 MCH 27.2 MCHC 32.9 RDW 15.4 Plt Count 330 MPV 8.0 Neutrophils % No Result Required. Lymphocytes % No Result Required. Sodium Potassium Chloride Carbon Dioxide Anion Gap BUN Creatinine Creat Clearance w eGFR POC Glucometer 431 438 Random Glucose Calcium Total Bilirubin AST ALT Alkaline Phosphatase Total Protein Albumin 06/15/17 06/15/17 05:35 06:36 WBC RBC Hgb Hct MCV MCH MCHC RDW Plt Count MPV Neutrophils % Lymphocytes % Sodium 128 L Potassium 5.0 Chloride 97 L Carbon Dioxide 17 L Anion Gap 14 BUN 79 H Creatinine 3.3 H Creat Clearance w eGFR 18.74 POC Glucometer 357 Random Glucose 355 H* Calcium 9.7 Total Bilirubin 0.4 AST 12 L ALT 43 Alkaline Phosphatase 83 Total Protein 7.5 Albumin 3.6 Active Medications Generic Name Dose Route Start Last Admin Trade Name Freq PRN Reason Stop Dose Admin Amlodipine Besylate 10 mg 06/12/17 10:00 06/14/17 10:18 Norvasc - PO 10 mg DAILY SHANEL Administration Aspirin 81 mg 06/08/17 10:00 06/14/17 10:19 Asa - PO 81 mg DAILY SHANEL Administration Atorvastatin Calcium 10 mg 06/08/17 22:00 06/14/17 21:38 Lipitor - PO 10 mg HS SHANEL Administration Cholecalciferol 2,000 unit 06/08/17 10:00 06/14/17 10:18 Vitamin D3 - PO 2,000 unit DAILY SHANEL Administration Cyanocobalamin 1,000 mcg 06/08/17 10:00 06/14/17 10:18 Vitamin B12 - PO 1,000 mcg DAILY SHANEL Administration Doxazosin Mesylate 4 mg 06/08/17 10:00 06/14/17 10:18 Cardura - PO 4 mg DAILY SHANEL Administration Furosemide 40 mg 06/11/17 11:15 06/14/17 10:34 Lasix - PO 40 mg DAILY SHANEL Administration Guaifenesin 2 tablet 06/10/17 11:30 06/14/17 21:38 Mucinex Dm - PO 2 tablet BID SHANEL Administration Heparin Sodium (Porcine) 5,000 unit 06/08/17 10:00 06/14/17 21:38 Heparin - SQ 5,000 unit BID SHANEL Administration Hydralazine HCl 50 mg 06/08/17 06:45 06/14/17 21:38 Apresoline - PO 50 mg BID SHANEL Administration Insulin Aspart 1 vial 06/14/17 09:19 06/15/17 06:38 Novolog Vial Sliding Scale - SQ 16 units ACHS SHANEL Administration Protocol Insulin Detemir 45 units 06/14/17 09:19 06/15/17 06:38 Levemir Vial SQ 45 units BID@0700,2200 SHANEL Administration Multivitamins/Minerals/Vitamin C 1 tab 06/08/17 10:00 06/14/17 10:18 Tab-A-Vit - PO 1 tab DAILY SHANEL Administration Nebivolol 10 mg 06/14/17 09:15 06/14/17 10:18 Bystolic - PO 10 mg DAILY SHANEL Administration Pantoprazole Sodium 40 mg 06/08/17 10:00 06/14/17 21:37 Protonix - PO 40 mg BID SHANEL Administration Prednisone 30 mg 06/15/17 09:30 Deltasone - PO DAILY SHANEL Fluticasone/Salmeterol 1 puff 06/08/17 10:00 06/14/17 10:19 Advair 100mcg/50mcg - IH 1 inhaler DAILY SHANEL Administration Sodium Bicarbonate 1,300 mg 06/09/17 15:00 06/14/17 21:38 Sodium Bicarbonate - PO 1,300 mg BID SHANEL Administration ASSESSMENT/PLAN: 1. Acute on chronic renal insufficiency - no significant improvement in renal function despite discontinuation of diuretics. Now worsening hyponatremia. 2. Metabolic acidosis - multifactorial, secondary to ARF and bladder conduit 3. Hyponatremia - likely secondary to diuretics , worsening . 4. Acute exacerbation of COPD - resolved. OK to taper steroids . 5. History of bladder CA - s/p conduit 6. Uncontrolled DM - secondary to oral steroids PLAN : 1. Hold lasix , monitor BMP 2. C/w bicarb 3. Taper steroids slowly 4. Increase basal insulin, monitor BG closely due to potentially worsening clearance Visit type - Emergency Visit Emergency Visit: Yes ED Registration Date: 06/08/17 Care time: The patient presented to the Emergency Department on the above date and was hospitalized for further evaluation of their emergent condition. - New Patient This patient is new to me today: Yes Date on this admission: 06/15/17 - Critical Care Critical Care patient: No - Discharge Referral Referred to [facility] Med P.C.: No
[2017-06-15] MEDS ORDERED: PT OWN MED DRAWER 7, Y5N ONE ×3 (10:07→17:11)
[2017-06-15] MEDS: SODIUM BICARBONATE 650 MG TABLET PO SCH ×2 (10:14→23:00)
[2017-06-15] MEDS: CYANOCOBALAMIN 1,000 MCG TABLET (FP) PO SCH (10:14)
[2017-06-15] MEDS: ASPIRIN 81 MG CHEWABLE TABLETS PO SCH (10:14)
[2017-06-15] MEDS: MULTIVITAMINS (DAILY MVI) TABLET (FP) PO SCH (10:15)
[2017-06-15] MEDS: PANTOPRAZOLE 40 MG TABLET (FP) PO SCH ×2 (10:16→23:00)
[2017-06-15] MEDS: guaiFENesin/D-METHORPHAN HB 1 EACH TAB.ER.12H PO SCH ×2 (10:16→23:04)
[2017-06-15] MEDS: hydrALAZINE HCL 50 MG TABLET (FP) PO SCH ×2 (10:16→23:00)
[2017-06-15] MEDS: CHOLECALCIFEROL (VITAMIN D3) 1,000 UNIT TABLET (FP) PO SCH (10:16)
[2017-06-15] MEDS: amLODIPine BESYLATE 10 MG TABLET (FP) PO SCH (10:16)
[2017-06-15] MEDS: HEPARIN NA (PORCINE) 5,000 UNITS/ML 1ML VIAL SQ SCH ×2 (10:17→23:00)
[2017-06-15] MEDS: DOXAZOSIN MESYLATE 4 MG TABLET PO SCH (10:17)
[2017-06-15] MEDS: NEBIVOLOL 10 MG TABLET (FP) PO SCH (10:25)
[2017-06-15] MEDS: predniSONE 10 MG TABLET (UD) PO SCH (11:44)
[2017-06-15] MEDS: FLUTICASONE/SALMETEROL 100 MCG/50 MCG DISKUS IH SCH (11:45)
--- NOTE | 2017-06-15 11:51 | PN ---
Progress Note, Physician Chief Complaint: sob History of Present Illness: sob much better, cough as well legs swelling stable no cp - Current Medication List Current Medications: Active Medications Amlodipine Besylate (Norvasc -) 10 mg PO DAILY [facility] Last Admin: 06/15/17 10:16 Dose: 10 mg Aspirin (Asa -) 81 mg PO DAILY [facility] Last Admin: 06/15/17 10:14 Dose: 81 mg Atorvastatin Calcium (Lipitor -) 10 mg PO HS [facility] Last Admin: 06/14/17 21:38 Dose: 10 mg Cholecalciferol (Vitamin D3 -) 2,000 unit PO DAILY [facility] Last Admin: 06/15/17 10:16 Dose: 2,000 unit Cyanocobalamin (Vitamin B12 -) 1,000 mcg PO DAILY [facility] Last Admin: 06/15/17 10:14 Dose: 1,000 mcg Doxazosin Mesylate (Cardura -) 4 mg PO DAILY [facility] Last Admin: 06/15/17 10:17 Dose: 4 mg Furosemide (Lasix -) 40 mg PO DAILY [facility] Last Admin: 06/14/17 10:34 Dose: 40 mg Guaifenesin (Mucinex Dm -) 2 tablet PO BID [facility] Last Admin: 06/15/17 10:16 Dose: 2 tablet Heparin Sodium (Porcine) (Heparin -) 5,000 unit SQ BID [facility] Last Admin: 06/15/17 10:17 Dose: 5,000 unit Hydralazine HCl (Apresoline -) 50 mg PO BID [facility] Last Admin: 06/15/17 10:16 Dose: 50 mg Insulin Aspart (Novolog Vial Sliding Scale -) 1 vial SQ [facility] PRN Reason: Protocol Last Admin: 06/15/17 11:39 Dose: 20 units Insulin Detemir (Levemir Vial) 45 units SQ BID@0700,2200 [facility] Last Admin: 06/15/17 06:38 Dose: 45 units Multivitamins/Minerals/Vitamin C (Tab-A-Vit -) 1 tab PO DAILY [facility] Last Admin: 06/15/17 10:15 Dose: 1 tab Nebivolol (Bystolic -) 10 mg PO DAILY [facility] Last Admin: 06/15/17 10:25 Dose: 10 mg Pantoprazole Sodium (Protonix -) 40 mg PO BID [facility] Last Admin: 06/15/17 10:16 Dose: 40 mg Prednisone (Deltasone -) 30 mg PO DAILY [facility] Last Admin: 06/15/17 11:44 Dose: 30 mg Fluticasone/Salmeterol (Advair 100mcg/50mcg -) 1 puff IH DAILY [facility] Last Admin: 06/15/17 11:45 Dose: 1 inhaler Sodium Bicarbonate (Sodium Bicarbonate -) 1,300 mg PO BID [facility] Last Admin: 06/15/17 10:14 Dose: 1,300 mg - Objective Vital Signs: Vital Signs Temperature 98.4 F 06/15/17 05:28 Pulse Rate 71 06/15/17 05:28 Respiratory Rate 22 06/15/17 05:28 Blood Pressure 146/85 06/15/17 05:28 O2 Sat by Pulse Oximetry (%) 98 06/14/17 20:56 Constitutional: Yes: Well Nourished, No Distress, Calm, Obese Cardiovascular: Yes: Regular Rate and Rhythm, S1, S2. No: Gallop, Murmur Respiratory: Yes: Regular, Diminished (L base). No: Rales, Rhonchi, Wheezes Extremities: No: Cold Edema: Yes (1+ pretib) Neurological: Yes: Alert, Oriented Psychiatric: No: Agitated Labs: CBC, BMP 06/15/17 05:35 06/15/17 05:35 INR, PTT INR 1.07 (0.82-1.09) 06/07/17 18:00 Assessment/Plan Echo 05/2017: mod conc lvh. nl lv fn. tds for rwma. nl rv size/fn. 1+ mr, nl rvsp. mod ao dilation (4.5 cm). 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 copd --> improved -ecg, tele, ce's benign -has hx of pleuropericarditis 2016, no clinical suspicion of this entity at present a.e. copd: -no signs chf and with MEKA on admit requiring IVF. cxr clear, bnp low -sob and cough much improved--tx of copd per hospitalist VTach: -run of NSVT on tele -K good, Mag consistently > 2.0 here -normal LVEF -no suspicion of acute myocardial ischemia -cont bb as doing -no further episodes--d/c tele meka on ckd: baseline cr of 2.5 -cr improved, close to baseline -observe lab trend (s/p IVF initially, po lasix resumed now) HTN with hypertensive heart dz, venous ins'y/chronic leg swelling: - signif LVH on echo, ? diast chf in past (vs obese with sob from copd/ deconditioning and chronic venous ins'y edema) - doubt chf at present - creat slightly worse today - dosing of lasix is primarily for LE edema here--ok to hold it if needed, defer to renal - previously with longstanding uncontrolled HTN, poor office f/u with me - bp's running mild to moderately elevated here - deferring RAAS blockers due to advanced CKD - changed metoprolol to bystolic for more potent vasodilatory effects if bp remains elevated - bp reasonable--same meds, observe trend HPL: -cont statin prior CVA x 2: -once in 2013 (clincal dx then, no MRI done), again 10/01 when held ASA for an invasive procedure -no etiology found incl with outpt 30d monitor showing no afib/flutter -likely due to uncontrolled RFs and atherosclerotic dz -cont prior sec prevention tx plan bladder Ca: -treated at [facility] with prostatectomy aorta root aneurysm: -4.3 cm (moderate dilation) on VÍCTOR 11/01, 4.5 cm on echo here -cont bp control as doing, bb, statin.
--- NOTE | 2017-06-15 17:31 | PN ---
Progress Note (short form) - Note Progress Note: Renal Follow up for MEKA and Metabolic acidosis Pt seen and examined at the bedside awake and alert no overnight events pt feels well, SOB/Cough improved making urine no diarrhea Vital Signs Temperature 98.1 F 06/15/17 14:33 Pulse Rate 61 06/15/17 14:33 Respiratory Rate 16 06/15/17 14:33 Blood Pressure 145/75 06/15/17 14:33 O2 Sat by Pulse Oximetry (%) 98 06/14/17 20:56 Intake & Output 06/12/17 06/13/17 06/14/17 06/15/17 23:59 23:59 23:59 23:59 Intake Total 1300 9852 688 0081 Output Total 2650 3800 4400 900 Balance -1350 -2450 -3890 100 NAD awake and alert CTA, no rales soft, Obese, NT/ND 1+ LE edema CBC, BMP 06/15/17 05:35 06/15/17 05:35 Current Medications Amlodipine Besylate (Norvasc -) 10 mg PO DAILY [facility] Last Admin: 06/15/17 10:16 Dose: 10 mg Aspirin (Asa -) 81 mg PO DAILY [facility] Last Admin: 06/15/17 10:14 Dose: 81 mg Atorvastatin Calcium (Lipitor -) 10 mg PO HS [facility] Last Admin: 06/14/17 21:38 Dose: 10 mg Cholecalciferol (Vitamin D3 -) 2,000 unit PO DAILY [facility] Last Admin: 06/15/17 10:16 Dose: 2,000 unit Cyanocobalamin (Vitamin B12 -) 1,000 mcg PO DAILY [facility] Last Admin: 06/15/17 10:14 Dose: 1,000 mcg Doxazosin Mesylate (Cardura -) 4 mg PO DAILY [facility] Last Admin: 06/15/17 10:17 Dose: 4 mg Furosemide (Lasix -) 40 mg PO DAILY [facility] Last Admin: 06/14/17 10:34 Dose: 40 mg Guaifenesin (Mucinex Dm -) 2 tablet PO BID [facility] Last Admin: 06/15/17 10:16 Dose: 2 tablet Heparin Sodium (Porcine) (Heparin -) 5,000 unit SQ BID [facility] Last Admin: 06/15/17 10:17 Dose: 5,000 unit Hydralazine HCl (Apresoline -) 50 mg PO BID [facility] Last Admin: 06/15/17 10:16 Dose: 50 mg Insulin Aspart (Novolog Vial Sliding Scale -) 1 vial SQ ACHS [facility] PRN Reason: Protocol Last Admin: 06/15/17 11:39 Dose: 20 units Insulin Detemir (Levemir Vial) 50 units SQ BID@0700,2200 [facility] Multivitamins/Minerals/Vitamin C (Tab-A-Vit -) 1 tab PO DAILY [facility] Last Admin: 06/15/17 10:15 Dose: 1 tab Nebivolol (Bystolic -) 10 mg PO DAILY [facility] Last Admin: 06/15/17 10:25 Dose: 10 mg Pantoprazole Sodium (Protonix -) 40 mg PO BID [facility] Last Admin: 06/15/17 10:16 Dose: 40 mg Prednisone (Deltasone -) 30 mg PO DAILY [facility] Last Admin: 06/15/17 11:44 Dose: 30 mg Fluticasone/Salmeterol (Advair 100mcg/50mcg -) 1 puff IH DAILY [facility] Last Admin: 06/15/17 11:45 Dose: 1 inhaler Sodium Bicarbonate (Sodium Bicarbonate -) 1,300 mg PO BID [facility] Last Admin: 06/15/17 10:14 Dose: 1,300 mg 66 year old gentleman with PMhx of CKD Stage 5 (Baseline Cr ~2.8), Bladder Ca s/ p Cystectomy with cystostomy, CVA, Hypertension, HLD, DM who presented with complaints of SOB and found to have MEKA and Metabolic acidosis. #Acute on Chronic Renal Insufficiency Cr with up trend over the past few days pt on Lasix, no МАРИНА/ARB or nephrotoxin exposure pt appears slighly hypervolemic at the present time and would require continued diuresis despite higher Cr, so would continue Lasix 40mg daily BUN levels high likely due to steroids and thus high BUN/Cr ratio not reflective of true pre-renal picture #Metabolic acidosis secondary to urinary intestinal diversion Continue oral sodium bicarbonate goal Bicarb > 22 Pt is stable for discharge from renal perspective will have repeat BMP done on Thursday and to follow up in the office with Dr. Kirkland next week Freddie Forbes DO
[2017-06-15 20:20] LABS: METAMYELOCYTE 2 % (0-2); TOTAL CELLS COUNTED 100
[2017-06-15 20:21] LABS: PLATELET ESTIMATE ADEQUATE
[2017-06-15] MEDS: ATORVASTATIN CA 10 MG TABLET (FP) PO SCH (22:59)
[2017-06-16 05:41] VITALS: PULSE 65
[2017-06-16] MEDS: INSULIN DETEMIR 100 UNITS/ML MDV SQ SCH (06:05)
[2017-06-16] MEDS: INSULIN SLIDING SCALE (NOVOLOG) 1 VIAL SQ SCH ×3 (06:05→17:27)
[2017-06-16] MEDS: hydrALAZINE HCL 50 MG TABLET (FP) PO SCH (11:31)
[2017-06-16] MEDS: MULTIVITAMINS (DAILY MVI) TABLET (FP) PO SCH (11:31)
[2017-06-16] MEDS: FUROSEMIDE 40 MG TABLET (FP) PO SCH (11:31)
[2017-06-16] MEDS: CYANOCOBALAMIN 1,000 MCG TABLET (FP) PO SCH (11:31)
[2017-06-16] MEDS: PANTOPRAZOLE 40 MG TABLET (FP) PO SCH (11:31)
[2017-06-16] MEDS: ASPIRIN 81 MG CHEWABLE TABLETS PO SCH (11:32)
[2017-06-16] MEDS: CHOLECALCIFEROL (VITAMIN D3) 1,000 UNIT TABLET (FP) PO SCH (11:32)
[2017-06-16] MEDS: predniSONE 10 MG TABLET (UD) PO SCH (11:32)
[2017-06-16] MEDS: HEPARIN NA (PORCINE) 5,000 UNITS/ML 1ML VIAL SQ SCH (11:32)
[2017-06-16] MEDS: NEBIVOLOL 10 MG TABLET (FP) PO SCH (11:33)
[2017-06-16] MEDS: DOXAZOSIN MESYLATE 4 MG TABLET PO SCH (11:33)
[2017-06-16] MEDS ORDERED: INSULIN (NOVOLOG) ASPART 100 UNITS/ML 10ML VIAL ONE (11:35)
[2017-06-16] MEDS ORDERED: PT OWN MED DRAWER 7, Y5N ONE (11:36)
[2017-06-16] MEDS: SODIUM BICARBONATE 650 MG TABLET PO SCH (11:37)
[2017-06-16] MEDS: amLODIPine BESYLATE 10 MG TABLET (FP) PO SCH (11:38)
[2017-06-16] MEDS: FLUTICASONE/SALMETEROL 100 MCG/50 MCG DISKUS IH SCH (11:46)
[2017-06-16] MEDS: guaiFENesin/D-METHORPHAN HB 1 EACH TAB.ER.12H PO SCH (12:51)
--- NOTE | 2017-06-16 13:44 | DS ---
Physical Examination Vital Signs: Vital Signs Temperature 36.7 C 06/16/17 05:40 Pulse Rate 65 06/16/17 05:40 Respiratory Rate 18 06/16/17 05:40 Blood Pressure 137/69 06/16/17 05:40 O2 Sat by Pulse Oximetry (%) 98 06/14/17 20:56 Constitutional: Yes: No Distress, Calm, Obese Cardiovascular: Yes: Regular Rate and Rhythm. No: Gallop, Murmur, Rub Respiratory: Yes: Regular, CTA Bilaterally. No: Rales, Rhonchi, Wheezes Gastrointestinal: Yes: Normal Bowel Sounds, Soft. No: Distention, Tenderness Extremities: Yes: WNL Edema: No Labs: CBC, BMP 06/15/17 05:35 06/15/17 05:35 Discharge Summary Reason For Visit: DIABETES MELLITUS/CHRONIC KIDNEY DISEASE Current Active Problems COPD exacerbation (Acute) Chest pain (Acute) Chronic kidney disease (Acute) Diabetes (Acute) HLD (hyperlipidemia) (Acute) Hypoglycemia (Acute) Metabolic acidosis (Acute) Obesity (Acute) Hospital Course: (1) COPD exacerbation Code(s): J44.1 - CHRONIC OBSTRUCTIVE PULMONARY DISEASE W (ACUTE) EXACERBATION (2) Metabolic acidosis Code(s): E87.2 - ACIDOSIS (3) Diabetes Code(s): E11.9 - TYPE 2 DIABETES MELLITUS WITHOUT COMPLICATIONS Qualifiers: Diabetes mellitus type: type 2 Diabetes mellitus complication status: with kidney complications Diabetes mellitus complication detail: with chronic kidney disease Diabetes mellitus fci insulin use: with certified massage therapist use Chronic kidney disease stage: stage 4 (severe) Qualified Code(s): E11.22 - Type 2 diabetes mellitus with diabetic chronic kidney disease; N18.4 - Chronic kidney disease, stage 4 (severe); N18.4 - Chronic kidney disease, stage 4 ( severe); N18.4 - Chronic kidney disease, stage 4 (severe); N18.4 - Chronic kidney disease, stage 4 (severe); Z79.4 - balance bridge inspector (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 of insulin; Z79.4 - balance bridge inspector (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 of insulin; Z79.4 - MCC (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 of insulin; Z79.4 - MCC (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 of insulin (4) Chronic kidney disease Code(s): N18.9 - CHRONIC KIDNEY DISEASE, UNSPECIFIED Qualifiers: Chronic kidney disease stage: stage 4 (severe) Qualified Code(s): N18.4 - Chronic kidney disease, stage 4 (severe) (5) Hypertension Code(s): I10 - ESSENTIAL (PRIMARY) HYPERTENSION Qualifiers: Hypertension type: essential hypertension Qualified Code(s): I10 - Essential (primary) hypertension (6) HLD (hyperlipidemia) Code(s): E78.5 - HYPERLIPIDEMIA, UNSPECIFIED (7) Chest pain Code(s): R07.9 - CHEST PAIN, UNSPECIFIED Mr Isaacs is a pleasant 66 year old male who comes in with COPD exacerbation. He was admitted to the hospital and started on duonebs and solumedrol. His shortness of breath improved. However he has a history of metabolic acidosis and his bicarbonate was very low. Nephrology was consulted and he was placed on a bicarbonate gtt. Because of both the bicarbonate gtt and steroids, his glucose was elevated. He is normal on lantus at home and he says he takes 10 units. This was replaced with levemir and he was requiring much higher doses. He became fluid overloaded and was started on lasix. He had non-cardiac chest pain that resolved. He is currently safe for discharge home. He is discharged on lantus 20 units qhs, this may need to be increased. 32 minutes spent in preparation of this discharge Condition: Good - Instructions Diet, Activity, Other Instructions: diabetic diet. Resume previous activity Referrals: Umang Howard MD [Primary Care Provider] - Freddie Forbes MD [Staff Physician] - Ghanshyam Gipson MD [Staff Physician] - Disposition: HOME - Home Medications Comprehensive Discharge Medication List: Ambulatory Orders Aspirin [Dianne Chewable Aspirin] 81 mg PO DAILY 06/07/17 Atorvastatin Ca [Lipitor] 10 mg PO HS 06/07/17 Cholecalciferol (Vitamin D3) [Vitamin D3] 2,000 unit PO DAILY 06/07/17 Cyanocobalamin [Vitamin B12 -] 1,000 mcg PO DAILY 06/07/17 Doxazosin Mesylate [Cardura -] 4 mg PO DAILY 06/07/17 Furosemide [Lasix -] 40 mg PO DAILY 06/07/17 Hydralazine HCl [Apresoline -] 50 mg PO BID 06/07/17 Multivitamin [One Daily] 1 each PO DAILY 06/07/17 Pantoprazole Sodium [Protonix] 40 mg PO BID 06/07/17 Salmeterol/Fluticasone [Advair 100Mcg/50Mcg -] 1 inh IH DAILY 06/07/17 Amlodipine Besylate [Norvasc -] 10 mg PO DAILY #30 tablet 06/16/17 Insulin Glargine,Hum.rec.anlog [Lantus Solostar PEN (NF)] 20 units SQ HS #1 pen 06/16/17 Ipratropium/Albuterol Sulfate [Combivent Respimat Inhal [place]] 4 gm IH TID #1 aer.w.adap 06/16/17 Nebivolol [Bystolic -] 10 mg PO DAILY #30 tab 06/16/17 Prednisone [Deltasone -] 10 mg PO ASDIR #7 tab 06/16/17 Sodium Bicarbonate - 1,300 mg PO BID #120 tablet 06/16/17
[2017-06-16 14:43] VITALS: BP 135/74; TEMP 97.7
== END 2017-06-16 17:43 | disposition home or self-care (01) | DRG 191 ==
LOC: JER 16:32 → JERBED 23:23 → UNDOADMIN 23:23 → JERBED 06-08 01:21 → J2W 06-08 03:50 → J4S 06-08 15:21 → J6S 06-15 22:33
PROVIDERS: ADMIT Specialist; ATTEND Internal Medicine
PROC: 3E0F7GC Introduction of Other Therapeutic Substance into Respiratory Tract, Via Natural or Artificial Opening (ICD-10-PCS; principal; 2017-06-07)
DX: J44.1 Chronic obstructive pulmonary disease with (acute) exacerbation (principal); N18.4 Chronic kidney disease, stage 4 (severe); Z68.41 Body mass index [BMI] 40.0-44.9, adult; E87.2 Acidosis; Q25.43 Congenital aneurysm of aorta; E87.1 Hypo-osmolality and hyponatremia; I47.2 Ventricular tachycardia; N17.9 Acute kidney failure, unspecified; J90 Pleural effusion, not elsewhere classified; E78.5 Hyperlipidemia, unspecified; E66.01 Morbid (severe) obesity due to excess calories; R07.89 Other chest pain; D72.828 Other elevated white blood cell count; D64.9 Anemia, unspecified; E87.79 Other fluid overload; E11.65 Type 2 diabetes mellitus with hyperglycemia; I13.10 Hypertensive heart and chronic kidney disease without heart failure, with stage 1 through stage 4 chronic kidney disease, or unspecified chronic kidney disease; E11.22 Type 2 diabetes mellitus with diabetic chronic kidney disease; Z85.51 Personal history of malignant neoplasm of bladder; Z87.891 Personal history of nicotine dependence; Z86.73 Personal history of transient ischemic attack (TIA), and cerebral infarction without residual deficits; Z79.4 Long term (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 of insulin
CPT/HCPCS: 36415; 36600; 71010-TC; 71020-TC; 76775-TC; 76856-TC; 80048; 80053; 81003; 81015; 82550; 82553; 82803; 82947; 83036; 83735; 83880; 84100; 84484; 85025; 85610; 93005; 93010; 93306-TC; 94640; 99283-25; J1644

== ENCOUNTER 2017-11-06 07:28 | Day surgery (SDC) | payer OTHER ==
[2017-11-05 11:01] VITALS: BMI 43.0
[2017-11-06 12:41] VITALS: TEMP 97.5
[2017-11-06 16:55] VITALS: BP 136/76; PULSE 84
== END 2017-11-06 15:40 | disposition home or self-care (01) ==
LOC: JASU-SURG 07:28
PROVIDERS: ATTEND Orthopaedic Surgery
PROC: 0RBK4ZZ Excision of Left Shoulder Joint, Percutaneous Endoscopic Approach (ICD-10-PCS; principal; 2017-11-06)
PROC: 0PBB4ZZ Excision of Left Clavicle, Percutaneous Endoscopic Approach (ICD-10-PCS; 2017-11-06)
DX: M24.812 Other specific joint derangements of left shoulder, not elsewhere classified (principal); E11.9 Type 2 diabetes mellitus without complications; I10 Essential (primary) hypertension; E66.01 Morbid (severe) obesity due to excess calories
CPT/HCPCS: 82962; 88304-TC; 94760

== ENCOUNTER 2017-11-26 07:54 | Inpatient (IN) | payer OTHER ==
--- NOTE | 2017-11-26 08:04 | PDOC ---
History of Present Illness - General Stated Complaint: CHILLS/HEART PAIN Time Seen by Provider: 11/26/17 08:03 - History of Present Illness Initial Comments: 11/26/17 08:13 Mr. Isaacs is a 66 yo male w/ pmh of COPD, DMII, CKD, HTN, HLD who presents complaining of 2 days of malaise, subjective fevers and chills, and intermittent left sided chest pain. He reports this feels similar to a prior admission where he was found to have a significant infection. The patient denies shortness of breath, headache and dizziness. Denies nausea, vomit, diarrhea and constipation. Denies dysuria, frequency, urgency and hematuria. Allergies: NKDA Past History - Past Medical History Allergies/Adverse Reactions: Allergies Allergy/AdvReac Type Severity Reaction Status Date / Time shrimp Allergy Intermediate Vomiting Verified 11/26/17 08:27 Home Medications: Ambulatory Orders Atorvastatin Ca [Lipitor] 10 mg PO DAILY 06/07/17 Cholecalciferol (Vitamin D3) [Vitamin D3] 1,000 unit PO DAILY 06/07/17 Cyanocobalamin [Vitamin B12 -] 1,000 mcg PO DAILY 06/07/17 Doxazosin Mesylate [Cardura -] 4 mg PO DAILY 06/07/17 Furosemide [Lasix -] 40 mg PO DAILY 06/07/17 Multivitamin [One Daily] 1 each PO DAILY 06/07/17 hydrALAZINE HCL [Apresoline -] 50 mg PO DAILY 06/07/17 Sodium Bicarbonate - 1,300 mg PO BID #120 tablet 06/16/17 Insulin Detemir [Levemir Flextouch] 15 unit SQ HS 11/05/17 Insulin Regular, Human [Humulin R U-500 Kwikpen] 0 unit SQ ACBK 11/05/17 Multivitamin [One Daily] 1 each PO DAILY 11/05/17 Anemia: No Asthma: No Cancer: Yes (BLADDER CA W/REMOVAL AND UROSTOMY) Cardiac Disorders: No ([facility]. DASH AT [facility]) CVA: Yes (2013) COPD: Yes CHF: No Dementia: No Diabetes: Yes (IDDM) Dialysis: No GI Disorders: No Disorders: Yes HTN: Yes Hypercholesterolemia: Yes Liver Disease: No Seizures: No Thyroid Disease: No - Surgical History Abdominal Surgery: Yes (BLADDER REMOVED 05/2014 -UROSTOMY) Appendectomy: No Cardiac Surgery: No Cholecystectomy: No Lung Surgery: No Neurologic Surgery: No Orthopedic Surgery: Yes (left knee sx) - Immunization History Immunization Up to Date: Yes (FLU AND PNA UP TO DATE) - Suicide/Smoking/Psychosocial Hx Smoking Status: No Smoking History: Former smoker Have you smoked in the past 12 months: No If you are a former smoker, when did you quit?: 40 YRS AGO Hx Alcohol Use: No Drug/Substance Use Hx: No Substance Use Type: None Hx Substance Use Treatment: No Review of Systems - Review of Systems Comments:: 11/26/17 08:14 GENERAL/CONSTITUTIONAL: +Fever/chills as described. No weakness. HEAD, EYES, EARS, NOSE AND THROAT: No change in vision. No ear pain or discharge. No sore throat. CARDIOVASCULAR: +Intermittent left chest pain. No shortness of breath RESPIRATORY: No cough, wheezing, or hemoptysis. GASTROINTESTINAL: No nausea, vomiting, diarrhea or constipation. GENITOURINARY: No dysuria, frequency, or change in urination. MUSCULOSKELETAL: No joint or muscle swelling or pain. No neck or back pain. SKIN: No rash NEUROLOGIC: No headache, vertigo, loss of consciousness, or change in strength/ sensation. ENDOCRINE: No increased thirst. No abnormal weight change HEMATOLOGIC/LYMPHATIC: No anemia, easy bleeding, or history of blood clots. ALLERGIC/IMMUNOLOGIC: No hives or skin allergy. *Physical Exam - Physical Exam Comments: 11/26/17 08:14 GENERAL: +Patient noted to be shaking significantly shaking upon presentation while under multiple blankets. Otherwise awake, alert, and fully oriented. HEAD: No signs of trauma, normocephalic, atraumatic EYES: PERRLA, EOMI, sclera anicteric, conjunctiva clear ENT: Auricles normal inspection, hearing grossly normal, nares patent, oropharynx clear without exudates. Moist mucosa NECK: Normal ROM, supple, no lymphadenopathy, JVD, or masses LUNGS: No distress, speaks full sentences, clear to auscultation bilaterally HEART: Regular rate and rhythm, normal S1 and S2, no murmurs, rubs or gallops, peripheral pulses normal and equal bilaterally. ABDOMEN: Soft, nontender, normoactive bowel sounds. No guarding, no rebound. No masses EXTREMITIES: Normal inspection, Normal range of motion, no edema. No clubbing or cyanosis. NEUROLOGICAL: Cranial nerves II through XII grossly intact. Normal speech, normal gait, no focal sensorimotor deficits SKIN: Warm, Dry, normal turgor, no rashes or lesions noted. ED Treatment Course - LABORATORY CBC & Chemistry Diagram: 11/26/17 09:00 11/26/17 09:00 Medical Decision Making - Medical Decision Making 11/26/17 08:46 Mr. Isaacs is a 66 yo male w/ pmh as described who presents for evaluation of subjective fevers and chills as described. 11/26/17 11:31 Labs significant for WBC of 12.9 and Luekocyte Esterase of 3+. Patient given 1g rocephin for treatment of UTI. Inpatient team contacted for possible admission for further treatment. 11/26/17 11:40 Patient admitted to medicine for further evaluation. Laboratory Results - last 24 hr 11/26/17 11/26/17 11/26/17 09:00 09:00 09:00 WBC 12.9 H D RBC 4.44 Hgb 12.3 Hct 36.4 MCV 82.0 MCH 27.7 MCHC 33.8 RDW 14.9 Plt Count 268 MPV 8.3 Neutrophils % 87.3 H Lymphocytes % 5.4 L D Monocytes % 6.0 Eosinophils % 1.1 Basophils % 0.2 PT with INR 12.60 INR 1.12 PTT (Actin FS) 30.3 VBG pH 7.32 POC VBG pCO2 25.4 L POC VBG pO2 33.0 D Mixed VBG HCO3 12.6 L* Sodium Potassium Chloride Carbon Dioxide Anion Gap BUN Creatinine Creat Clearance w eGFR Random Glucose Lactic Acid Calcium Total Bilirubin AST ALT Alkaline Phosphatase Total Protein Albumin Urine Color Urine Appearance Urine pH Ur Specific Wortham Urine Protein Urine Glucose (UA) Urine Ketones Urine Blood Urine Nitrite Urine Bilirubin Urine Urobilinogen Ur Leukocyte Esterase Urine WBC (Auto) Urine RBC (Auto) Ur Epithelial Cells Urine Bacteria Urine Mucus 11/26/17 11/26/17 11/26/17 09:00 09:20 09:20 WBC RBC Hgb Hct MCV MCH MCHC RDW Plt Count MPV Neutrophils % Lymphocytes % Monocytes % Eosinophils % Basophils % PT with INR INR PTT (Actin FS) VBG pH POC VBG pCO2 POC VBG pO2 Mixed VBG HCO3 Sodium 138 Potassium 4.2 Chloride 114 H Carbon Dioxide 13 L D Anion Gap 11 BUN 51 H D Creatinine 2.9 H Creat Clearance w eGFR 21.75 Random Glucose 236 H Lactic Acid 1.8 Calcium 8.8 Total Bilirubin 0.6 D AST 17 D ALT 26 Alkaline Phosphatase 74 Total Protein 7.4 Albumin 3.4 Urine Color Yellow Urine Appearance Cloudy Urine pH 8.0 Ur Specific Wortham 1.008 Urine Protein 1+ H Urine Glucose (UA) Negative Urine Ketones Negative Urine Blood 1+ H Urine Nitrite Negative Urine Bilirubin Negative Urine Urobilinogen Negative Ur Leukocyte Esterase 3+ H Urine WBC (Auto) 32 Urine RBC (Auto) 10 Ur Epithelial Cells Rare Urine Bacteria Rare Urine Mucus Rare *DC/Admit/Observation/Transfer Diagnosis at time of Disposition: UTI (urinary tract infection) Qualifiers: Urinary tract infection type: site unspecified Hematuria presence: with hematuria Qualified Code(s): N39.0 - Urinary tract infection, site not specified ; R31.9 - Hematuria, unspecified; R31.9 - Hematuria, unspecified - Discharge Dispostion Decision to Admit order: Yes - Referrals Referrals: Umang Howard MD [Primary Care Provider] - - Patient Instructions - Post Discharge Activity
--- NOTE | 2017-11-26 08:25 | PDOC ---
Attending Attestation - Resident Resident Name: Garo Leach - ED Attending Attestation I have performed the following: I have examined & evaluated the patient, The case was reviewed & discussed with the resident, I agree w/resident's findings & plan, Exceptions are as noted - HPI HPI: 11/26/17 09:40 66y M hx of htn, hl, ckd, bladder ca s/p urostomy cva x 2, d, presents with 2 days of chills. pt denies any other symptoms including chills, cough, cp, sob, hurley, abd pain, foul smeling urine from his ostomy, back pain. pt notes that he felt like this last year when he had a UTI and was admitted to [facility]. pt does endorse approx 2 episodes of loose stool / day for the past 2 days w/o any n/v, abd pain. GENERAL: The patient is awake, alert, and fully oriented, Nontoxic - in no acute distress, obese HEAD: Normocephalic, atraumatic. EYES: extraocular movements intact, sclera anicteric, conjunctiva clear. ENT: Normal voice, Moist mucous membranes. NECK: Normal range of motion, supple LUNGS: Breath sounds equal, clear to auscultation bilaterally. No wheezes, no rhonchi, no rales. HEART: Regular rate and rhythm, normal S1 and S2 without murmur, rub or gallop. ABDOMEN: + abdominal scar, urostomy present, no focal tenderness, nondistneded, no cva tenderness EXTREMITIES: Normal range of motion, no edema. No clubbing or cyanosis. No cords, erythema, or tenderness. NEUROLOGICAL: No facial assymetry, Normal speech, PSYCH: Normal mood, normal affect. SKIN: Warm, Dry, normal turgor, PCP: Dr. Umang Howard Nephrology: Dr. Mariangel Kirkland 11/26/17 09:46 vitals noted for slight tachy ddx, uti, colitis sepsis orderset initiated will roxana pmd - Physicial Exam PE: 11/26/17 17:00 see above - Medical Decision Making labs noted for wbc of 12 UA c/w UTI caleb admit for further management Heart Score/ECG Review - ECG Impressions Comment:: 11/26/17 11:29 Twelve-lead EKG was performed and reviewed by me. There is normal sinus rhythm with a normal rate. Rate of 99 Left axis deviation
[2017-11-26 08:27] VITALS: BMI 50.1
[2017-11-26 09:10] LABS: BASO % 0.2 % (0-2.0); EOS % 1.1 % (0-4.5); HEMATOCRIT 36.4 % (35.4-49); HEMOGLOBIN 12.3 GM/dL (11.7-16.9); LYMPH % 5.4 % (8-40); MCH 27.7 pg (25.7-33.7); MCHC 33.8 g/dl (32.0-35.9); MEAN PLT VOLUME 8.3 fl (7.5-11.1); NEUT % 87.3 % (42.8-82.8); PLATELET COUNT 268 K/MM3 (134-434); RBC 4.44 M/mm3 (4.00-5.60); RDW 14.9 % (11.9-15.9); WHITE BLOOD COUNT 12.9 K/mm3 (4.0-10.0)
[2017-11-26 09:12] LABS: VENOUS PH 7.32 (7.32-7.42)
[2017-11-26 09:13] LABS: VENOUS PC02 25.4 mmHg (38-52)
[2017-11-26 09:32] LABS: ALBUMIN 3.4 g/dl (3.4-5.0); ALK PHOS 74 U/L (45-117); ANION GAP 11 (8-16); BILIRUBIN,TOTAL 0.6 mg/dL (0.2-1.0); BLOOD UREA NITROGEN 51 mg/dL (7-18); CALCIUM 8.8 mg/dL (8.5-10.1); CHLORIDE 114 mmol/L (98-107); CO2 13 mmol/L (21-32); CREATININE 2.9 mg/dL (0.7-1.3); GLUCOSE,RANDOM 236 mg/dL (74-106); POTASSIUM 4.2 mmol/L (3.5-5.1); SGOT/AST 17 U/L (15-37); SGPT/ALT 26 U/L (12-78); SODIUM 138 mmol/L (136-145); TOT PROT 7.4 g/dl (6.4-8.2)
[2017-11-26 09:32] LABS: URINE APPEARANCE CLOUDY; URINE BILIRUBIN NEGATIVE (<2.0 mg/dL); URINE COLOR YELLOW; URINE GLUCOSE (UA) NEGATIVE (NEGATIVE); URINE KETONE NEGATIVE (NEGATIVE); URINE NITRITE NEGATIVE (NEGATIVE); URINE UROBILINOGEN NEGATIVE mg/dL (0.2-1.0)
[2017-11-26 09:33] LABS: INR 1.12 (0.82-1.09); PROTHROMBIN TIME (PATIENT) 12.6 SEC (9.7-13.0)
[2017-11-26 09:35] LABS: URINE LEUK ESTERASE 3+ (NEGATIVE); URINE PROTEIN 1+ (NEGATIVE)
[2017-11-26 09:36] LABS: ACTIVATED PTT 30.3 SECONDS (26.9-34.4)
[2017-11-26] MEDS ORDERED: CEFTRIAXONE 1 GM in DEXTROSE 5%-WATER - 100 ML IVPB ONE (09:46)
[2017-11-26] MEDS ORDERED: CEFTRIAXONE 1 GM/50 ML BAG ONE (09:54)
[2017-11-26 10:56] LABS: EPI CELLS RARE /HPF (FEW); URINE BACTERIA RARE /hpf (NONE SEEN); URINE MUCUS RARE
--- NOTE | 2017-11-26 11:42 | EKG ---
Test Reason : Blood Pressure : / mmHG Vent. Rate : 099 BPM Atrial Rate : 099 BPM P-R Int : 206 ms QRS Dur : 094 ms QT Int : 362 ms P-R-T Axes : 056 -44 050 degrees QTc Int : 464 ms POOR DATA QUALITY, INTERPRETATION MAY BE ADVERSELY AFFECTED NORMAL SINUS RHYTHM LEFT AXIS DEVIATION MINIMAL VOLTAGE CRITERIA FOR LVH, MAY BE NORMAL VARIANT JUNCTIONAL ST DEPRESSION, PROBABLY NORMAL ABNORMAL ECG WHEN COMPARED WITH ECG OF 10-JUN-2017 09:21, NO SIGNIFICANT CHANGE WAS FOUND Confirmed by GRACE CAMPBELL MD ([id number]) on 11/26/2017 11:41:50 AM Referred By: Confirmed By:GRACE CAMPBELL MD
[2017-11-26] MEDS ORDERED: ACETAMINOPHEN 325 MG TABLET (FP) PO PRN (12:19)
[2017-11-26] MEDS ORDERED: ONDANSETRON 4 MG/2 ML VIAL IVPUSH PRN (12:19)
[2017-11-26] MEDS ORDERED: oxyCODONE HCL 5 MG TABLET PO PRN (12:19)
--- NOTE | 2017-11-26 12:27 | HP ---
Admitting History and Physical - Primary Care Physician PCP: Umang Howard - Admission Chief Complaint: I was shaking History of Present Illness: Mr Isaacs is a very pleasant 66 year old male who comes in with 2 days of continuous shaking. He said it came on suddenly and it was minor but the shaking progressed. It was constant and nothing made it go away. He was walking today and the shaking became so severe he was concerned he would fall. He had previous episodes where he had a UTI and that is what brought him into the hospital today. He says he still feels cold and is shaking. Aside from this he says he is doing well. He denies fevers, lightheadedness, passing out, chest pain or pressure, shortness of breath, nausea, vomiting, constipation, or worsening leg swelling. He said he had one episode of diarrhea yesterday but this is currently resolved. 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 History of Recent Travel: No Home Medications - Allergies Allergies/Adverse Reactions: Allergies Allergy/AdvReac Type Severity Reaction Status Date / Time shrimp Allergy Intermediate Vomiting Verified 11/26/17 08:27 - Home Medications Home Medications: Ambulatory Orders Atorvastatin Ca [Lipitor] 10 mg PO DAILY 06/07/17 Cholecalciferol (Vitamin D3) [Vitamin D3] 1,000 unit PO DAILY 06/07/17 Cyanocobalamin [Vitamin B12 -] 1,000 mcg PO DAILY 06/07/17 Doxazosin Mesylate [Cardura -] 4 mg PO DAILY 06/07/17 Furosemide [Lasix -] 40 mg PO DAILY 06/07/17 Multivitamin [One Daily] 1 each PO DAILY 06/07/17 hydrALAZINE HCL [Apresoline -] 50 mg PO DAILY 11/19/17 Sodium Bicarbonate - 1,300 mg PO BID #120 tablet 06/16/17 Insulin Detemir [Levemir Flextouch] 15 unit SQ HS 11/05/17 Insulin Regular, Human [Humulin R U-500 Kwikpen] 0 unit SQ ACBK 11/05/17 Multivitamin [One Daily] 1 each PO DAILY 11/05/17 Family Disease History - Family Disease History Family Disease History: Diabetes: Mother, CA: Father Review of Systems Findings/Remarks: Full review of systems obtained, as per HPI and otherwise negative Physical Examination Vital Signs: Vital Signs Temperature 36.3 C L 11/26/17 08:00 Pulse Rate 102 H 11/26/17 08:00 Respiratory Rate 18 11/26/17 08:00 Blood Pressure 166/101 11/26/17 08:00 O2 Sat by Pulse Oximetry (%) 100 11/26/17 08:00 Constitutional: Yes: No Distress, Calm, Obese, Other (rigors) Eyes: Yes: Conjunctiva Clear, EOM Intact, PERRL HENT: Yes: Atraumatic, Normocephalic Cardiovascular: Yes: Regular Rate and Rhythm. No: Gallop, Murmur, Rub Respiratory: Yes: Regular, CTA Bilaterally. No: Rales, Rhonchi, Wheezes Gastrointestinal: Yes: Normal Bowel Sounds, Soft. No: Distention, Tenderness Extremities: Yes: WNL Edema: Yes Edema: LLE: 1+, RLE: 1+ Labs: CBC, BMP 11/26/17 09:00 11/26/17 09:00 Imaging - Results Chest X-ray: Report Reviewed, Image Reviewed Problem List - Problems (1) Urinary tract infection Assessment/Plan: -U/A positive for UTI -urine cultures and blood cultures sent -admit to the hospital -given rocephin in the ED -however will consult ID as has history of ESBL E coli Code(s): N39.0 - URINARY TRACT INFECTION, SITE NOT SPECIFIED Qualifiers: Urinary tract infection type: site unspecified Hematuria presence: with hematuria Qualified Code(s): N39.0 - Urinary tract infection, site not specified; R31.9 - Hematuria, unspecified; R31.9 - Hematuria, unspecified (2) Sepsis Assessment/Plan: -secondary to UTI -with rigors and leukocytosis -low dose IVF and hold lasix currently -ID consulted as above Code(s): A41.9 - SEPSIS, UNSPECIFIED ORGANISM (3) Metabolic acidosis Assessment/Plan: -acute on chronic -continue oral replacement -nephrology consult Code(s): E87.2 - ACIDOSIS (4) Chronic kidney disease Assessment/Plan: -stable -hold lasix and gentle hydration for short period Code(s): N18.9 - CHRONIC KIDNEY DISEASE, UNSPECIFIED Qualifiers: Chronic kidney disease stage: stage 4 (severe) Qualified Code(s): N18.4 - Chronic kidney disease, stage 4 (severe) (5) Diabetes Assessment/Plan: -diabetic diet -continue home regimen -FSBS and SSI Code(s): E11.9 - TYPE 2 DIABETES MELLITUS WITHOUT COMPLICATIONS Qualifiers: Diabetes mellitus type: type 2 Diabetes mellitus detention insulin use: with 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 use Diabetes mellitus complication status: with kidney complications Diabetes mellitus complication detail: with chronic kidney disease Chronic kidney disease stage: stage 4 (severe) Qualified Code(s): E11.22 - Type 2 diabetes mellitus with diabetic chronic kidney disease; N18.4 - Chronic kidney disease, stage 4 (severe); N18.4 - Chronic kidney disease, stage 4 (severe); N18.4 - Chronic kidney disease, stage 4 (severe); N18.4 - Chronic kidney disease, stage 4 (severe); Z79.4 - MCC (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 of insulin; Z79.4 - MCC (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 of insulin; Z79.4 - keno terminal operator (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 of insulin; Z79.4 - MCC (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 of insulin (6) HLD (hyperlipidemia) Assessment/Plan: -continue lipitor Code(s): E78.5 - HYPERLIPIDEMIA, UNSPECIFIED (7) Hypertension Assessment/Plan: -slightly elevated -continue home regimen but lasix as above -monitor Code(s): I10 - ESSENTIAL (PRIMARY) HYPERTENSION Qualifiers: Hypertension type: essential hypertension Qualified Code(s): I10 - Essential (primary) hypertension
[2017-11-26] MEDS ORDERED: SODIUM CHLORIDE 1,000 ML IV SCH (12:30)
[2017-11-26] MEDS: INSULIN SLIDING SCALE (NOVOLOG) 1 VIAL SQ SCH ×2 (15:58→23:15)
[2017-11-26] MEDS ORDERED: INSULIN (NOVOLOG) ASPART 100 UNITS/ML 10ML VIAL ONE ×2 (16:06→23:20)
--- NOTE | 2017-11-26 17:46 | CON.ID ---
Consult Consult Specialty:: infectious diseases Referred by:: Reason for Consultation:: sepsis - History of Present Illness Chief Complaint: fever,chills,weakness History of Present Illness: 66 year old male who comes in with 2 days of continuous shaking. He said it came on suddenly and it was minor but the shaking progressed. It was constant and nothing made it go away. He was walking today and the shaking became so severe he was concerned he would fall. He had previous episodes where he had a UTI and that is what brought him into the hospital today. He says he still feels cold and is shaking. patient has had leg swelling before and cellulitis and his left leg is bothering him a little bit but not much. He denies fevers, lightheadedness, passing out, chest pain or pressure, shortness of breath, nausea, vomiting, constipation, or worsening leg swelling. He said he had one episode of diarrhea yesterday but this is currently resolved. 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 Cardio/Vascular: Yes: HTN, Hyperlipdemia Renal/: Yes: Renal Inusuff, Other (lucy durand) Endocrine: Yes: Diabetes Mellitus - Past Surgical History Past Surgical History: Yes: Cystectomy (05/2014) - Alcohol/Substance Use Hx Alcohol Use: No History of Substance Use: reports: None - Smoking History Smoking history: Former smoker Have you smoked in the past 12 months: No If you are a former smoker, when did you quit?: 40 YRS AGO - Social History Usual Living Arrangement: Alone ADL: Independent 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 History of Recent Travel: No Home Medications - Allergies Allergies/Adverse Reactions: Allergies Allergy/AdvReac Type Severity Reaction Status Date / Time shrimp Allergy Intermediate Vomiting Verified 11/26/17 08:27 - Home Medications Home Medications: Ambulatory Orders Atorvastatin Ca [Lipitor] 10 mg PO DAILY 06/07/17 Cholecalciferol (Vitamin D3) [Vitamin D3] 1,000 unit PO DAILY 06/07/17 Cyanocobalamin [Vitamin B12 -] 1,000 mcg PO DAILY 06/07/17 Doxazosin Mesylate [Cardura -] 4 mg PO DAILY 06/07/17 Furosemide [Lasix -] 40 mg PO DAILY 06/07/17 Multivitamin [One Daily] 1 each PO DAILY 06/07/17 hydrALAZINE HCL [Apresoline -] 50 mg PO DAILY 06/07/17 Sodium Bicarbonate - 1,300 mg PO BID #120 tablet 06/16/17 Insulin Detemir [Levemir Flextouch] 15 unit SQ HS 11/05/17 Insulin Regular, Human [Humulin R U-500 Kwikpen] 0 unit SQ ACBK 11/05/17 Multivitamin [One Daily] 1 each PO DAILY 11/05/17 Family Disease History - Family Disease History Family Disease History: Diabetes: Mother, CA: Father Review of Systems - Review of Systems Constitutional: reports: Chills, Fever Eyes: reports: No Symptoms HENT: reports: No Symptoms Neck: reports: No Symptoms Cardiovascular: reports: No Symptoms Respiratory: reports: No Symptoms Gastrointestinal: reports: No Symptoms Genitourinary: reports: No Symptoms Musculoskeletal: reports: Other (left leg pain) Integumentary: reports: No Symptoms Neurological: reports: No Symptoms Endocrine: reports: No Symptoms Hematology/Lymphatic: reports: No Symptoms Psychiatric: reports: No Symptoms Physical Exam Vital Signs: Vital Signs Temperature 97.4 F L 11/26/17 08:00 Pulse Rate 91 H 11/26/17 17:29 Respiratory Rate 16 11/26/17 17:29 Blood Pressure 146/87 11/26/17 17:29 O2 Sat by Pulse Oximetry (%) 99 11/26/17 17:29 Constitutional: Yes: Well Nourished, Calm, Mild Distress Eyes: Yes: Conjunctiva Clear HENT: Yes: Atraumatic, Normocephalic Neck: Yes: Supple, Trachea Midline Cardiovascular: Yes: Regular Rate and Rhythm Respiratory: Yes: Regular, CTA Bilaterally Gastrointestinal: Yes: Normal Bowel Sounds, Soft Musculoskeletal: Yes: Other Edema: LLE: 1+, RLE: 1+ Neurological: Yes: Alert, Oriented Psychiatric: Yes: Alert, Oriented Labs: CBC, BMP 11/26/17 09:00 11/26/17 09:00 Assessment/Plan Problem List - Problems (1) Urinary tract infection Code(s): N39.0 - URINARY TRACT INFECTION, SITE NOT SPECIFIED Qualifiers: Urinary tract infection type: site unspecified Hematuria presence: with hematuria Qualified Code(s): N39.0 - Urinary tract infection, site not specified; R31.9 - Hematuria, unspecified; R31.9 - Hematuria, unspecified (2) Sepsis Code(s): A41.9 - SEPSIS, UNSPECIFIED ORGANISM (3) Metabolic acidosis Code(s): E87.2 - ACIDOSIS (4) Chronic kidney disease Code(s): N18.9 - CHRONIC KIDNEY DISEASE, UNSPECIFIED Qualifiers: Chronic kidney disease stage: stage 4 (severe) Qualified Code(s): N18.4 - Chronic kidney disease, stage 4 (severe) (5) Diabetes Code(s): E11.9 - TYPE 2 DIABETES MELLITUS WITHOUT COMPLICATIONS Qualifiers: Diabetes mellitus type: type 2 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 exterminator insulin use: with shelter use Diabetes mellitus complication status: with kidney complications Diabetes mellitus complication detail: with chronic kidney disease Chronic kidney disease stage: stage 4 (severe) Qualified Code(s): E11.22 - Type 2 diabetes mellitus with diabetic chronic kidney disease; N18.4 - Chronic kidney disease, stage 4 (severe); N18.4 - Chronic kidney disease, stage 4 (severe); N18.4 - Chronic kidney disease, stage 4 (severe); N18.4 - Chronic kidney disease, stage 4 (severe); Z79.4 - FDC (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 of insulin; Z79.4 - FDC (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 of insulin; Z79.4 - FDC (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 of insulin; Z79.4 - FDC (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 of insulin (6) HLD (hyperlipidemia) Code(s): E78.5 - HYPERLIPIDEMIA, UNSPECIFIED (7) Hypertension Code(s): I10 - ESSENTIAL (PRIMARY) HYPERTENSION Qualifiers: Hypertension type: essential hypertension Qualified Code(s): I10 - Essential (primary) hypertension patient has a history of esbl,but at thsi time i am going to start him on zosyn till the cx comes back will stop ceftriaxone will switch to zosyn hydration rest as per the team await for cx to come back
--- NOTE | 2017-11-26 17:54 | CONSULT ---
Consult - text type - Consultation Consultation Note: Renal Consult for CKD/Metabolic Acidosis This is a 66 year old gentleman with PMhx of Urethral Diversion, CKD Stage 4, COPD, Hypertension, DM, Hyperlipidemia presented to the ED with complaints of tremors and shaking and found to have Cr of 2.9 and Bicarb of 13. Pt reports shaking x 2 day, no fevers at home. No N/V/D. Has poor oral intake. good urine output via ostomy. No flank pain. No HALL, chest pain. PMhx: as above Allergies: NKDA Family Hx: NC Social hx: No T/A/D ROS: as per HPI Home Medications Medication Instructions Recorded Atorvastatin Ca [Lipitor] 10 mg PO DAILY 06/07/17 Cholecalciferol (Vitamin D3) 1,000 unit PO DAILY 06/07/17 [Vitamin D3] Cyanocobalamin [Vitamin B12 -] 1,000 mcg PO DAILY 06/07/17 Doxazosin Mesylate [Cardura -] 4 mg PO DAILY 06/07/17 Furosemide [Lasix -] 40 mg PO DAILY 06/07/17 Multivitamin [One Daily] 1 each PO DAILY 06/07/17 hydrALAZINE HCL [Apresoline -] 50 mg PO DAILY 06/07/17 Sodium Bicarbonate - 1,300 mg PO BID #120 tablet 06/16/17 Insulin Detemir [Levemir Flextouch] 15 unit SQ HS 11/05/17 Insulin Regular, Human [Humulin R 0 unit SQ ACBK 11/05/17 U-500 Kwikpen] Multivitamin [One Daily] 1 each PO DAILY 11/05/17 Vital Signs Temperature 97.4 F L 11/26/17 08:00 Pulse Rate 91 H 11/26/17 17:29 Respiratory Rate 16 11/26/17 17:29 Blood Pressure 146/87 11/26/17 17:29 O2 Sat by Pulse Oximetry (%) 99 11/26/17 17:29 Intake & Output 11/23/17 11/24/17 11/25/17 11/26/17 23:59 23:59 23:59 23:59 Weight 145.15 kg NAD awake and alert RRR, No M/R CTA, soft NT/ND Obese, NT/ND NO LE edema CBC, BMP 11/26/17 09:00 05/10/18 09:00 Current Medications Acetaminophen (Tylenol -) 650 mg PO Q4H PRN PRN Reason: PAIN LEVEL 1-5 Atorvastatin Calcium (Lipitor -) 10 mg PO DAILY [facility] Cholecalciferol (Vitamin D3 -) 1,000 unit PO DAILY [facility] Cyanocobalamin (Vitamin B12 -) 1,000 mcg PO DAILY [facility] Doxazosin Mesylate (Cardura -) 4 mg PO DAILY [facility] Heparin Sodium (Porcine) (Heparin -) 5,000 unit SQ Q8H-IV [facility] Last Admin: 11/26/17 17:06 Dose: 5,000 unit Hydralazine HCl (Apresoline -) 50 mg PO DAILY [facility] Sodium Chloride (Normal Saline -) 1,000 mls @ 50 mls/hr IV ASDIR [facility] Stop: 11/27/17 12:23 Last Admin: 11/26/17 13:01 Dose: 50 mls/hr Piperacillin Sod/Tazobactam (Sod 2.25 gm/ Dextrose) 50 mls @ 100 mls/hr IVPB Q8H-IV [facility] PRN Reason: Protocol Insulin Aspart (Novolog Vial Sliding Scale -) 0 vial SQ ACHS [facility] PRN Reason: Protocol Last Admin: 11/26/17 15:58 Dose: 6 unit Insulin Detemir (Levemir Vial) 15 units SQ HS [facility] Multivitamins/Minerals/Vitamin C (Tab-A-Vit -) 1 tab PO DAILY [facility] Ondansetron HCl (Zofran Injection) 4 mg IVPUSH Q6H PRN PRN Reason: NAUSEA Oxycodone HCl (Roxicodone -) 5 mg PO Q6H PRN PRN Reason: PAIN LEVEL 6-10 Sodium Bicarbonate (Sodium Bicarbonate -) 1,300 mg PO BID [facility] 66 year old gentleman with PMhx of Urethral Diversion, CKD Stage 4, COPD, Hypertension, DM, Hyperlipidemia presented to the ED with complaints of tremors and shaking and found to have Cr of 2.9 and Bicarb of 13. #CKD Stage 4 #Non-anion gap metabolic acidosis with respiratory compensation #Tremors #Leukocytosis r/o infection Renal function around valvues from last discharge Check urine studies for Urine anion gap check Lactic acid in AM Start IVF with bicarb continue Abx as per ID Thank you will follow Freddie Forbes DO
[2017-11-26] MEDS ORDERED: HEPARIN NA (PORCINE) 5,000 UNITS/ML 1ML VIAL SQ SCH (18:00)
[2017-11-26] MEDS ORDERED: PIPERACILLIN/TAZOBACTAM 2.25 GM VIAL IVPB ONE ×3 (19:01→23:53)
[2017-11-26] MEDS: PIPERACILLIN/TAZOB 2.25 GM 2.25 GM in DEXTROSE 5%-WATER - 50 ML IVPB SCH (19:08)
[2017-11-26] MEDS: INSULIN (LEVEMIR) 100 UNITS/ML UNITS SQ SCH (23:00)
[2017-11-26] MEDS ORDERED: INSULIN (LEVEMIR) 100 UNITS/ML UNITS SQ ONE (23:20)
[2017-11-26] MEDS: SODIUM BICARBONATE 650 MG TABLET PO SCH (23:30)
[2017-11-26] MEDS ORDERED: oxyCODONE HCL 5 MG TABLET ONE (23:51)
[2017-11-26] MEDS ORDERED: HEPARIN NA (PORCINE) 5,000 UNITS/ML 1ML VIAL ONE (23:53)
[2017-11-27] MEDS: PIPERACILLIN/TAZOB 2.25 GM 2.25 GM in DEXTROSE 5%-WATER - 50 ML IVPB SCH ×3 (01:55→18:07)
[2017-11-27] MEDS: HEPARIN NA (PORCINE) 5,000 UNITS/ML 1ML VIAL SQ SCH ×3 (06:00→21:15)
[2017-11-27 07:19] LABS: BASO % 0.4 % (0-2.0); EOS % 3.7 % (0-4.5); HEMATOCRIT 34.7 % (35.4-49); HEMOGLOBIN 11.8 GM/dL (11.7-16.9); LYMPH % 10.4 % (8-40); MCH 27.8 pg (25.7-33.7); MCHC 34.1 g/dl (32.0-35.9); MEAN CELL VOLUME 81.7 fl (80-96); MEAN PLT VOLUME 8.1 fl (7.5-11.1); NEUT % 73.5 % (42.8-82.8); PLATELET COUNT 249 K/MM3 (134-434); RBC 4.25 M/mm3 (4.00-5.60); RDW 14.9 % (11.9-15.9); WHITE BLOOD COUNT 9.3 K/mm3 (4.0-10.0)
[2017-11-27] MEDS: INSULIN SLIDING SCALE (NOVOLOG) 1 VIAL SQ SCH ×4 (07:22→21:15)
[2017-11-27 07:59] LABS: CHLORIDE 115 mmol/L (98-107); POTASSIUM 4.1 mmol/L (3.5-5.1); SODIUM 141 mmol/L (136-145)
[2017-11-27 08:21] LABS: ANION GAP 11 (8-16); BLOOD UREA NITROGEN 47 mg/dL (7-18); CALCIUM 8.7 mg/dL (8.5-10.1); CO2 15 mmol/L (21-32); CREATININE 2.7 mg/dL (0.7-1.3); GLUCOSE,RANDOM 182 mg/dL (74-106); MAGNESIUM 2.3 mg/dL (1.8-2.4); PHOSPHOROUS 2.8 mg/dL (2.5-4.9)
--- NOTE | 2017-11-27 09:34 | EKG ---
Test Reason : Blood Pressure : / mmHG Vent. Rate : 090 BPM Atrial Rate : 090 BPM P-R Int : 204 ms QRS Dur : 104 ms QT Int : 376 ms P-R-T Axes : 035 -48 042 degrees QTc Int : 459 ms SINUS RHYTHM WITH FREQUENT PREMATURE VENTRICULAR COMPLEXES LEFT AXIS DEVIATION MINIMAL VOLTAGE CRITERIA FOR LVH, MAY BE NORMAL VARIANT ABNORMAL ECG WHEN COMPARED WITH ECG OF 26-NOV-2017 08:27, PREMATURE VENTRICULAR COMPLEXES ARE NOW PRESENT Confirmed by PADMINI BRITO MD ([id number]) on 11/27/2017 9:34:17 AM Referred By: Confirmed By:PADMINI BRITO MD
[2017-11-27] MEDS ORDERED: ATORVASTATIN CA 10 MG TABLET (FP) PO SCH (10:00)
[2017-11-27] MEDS ORDERED: PIPERACILLIN/TAZOBACTAM 2.25 GM VIAL IVPB ONE (10:21)
[2017-11-27] MEDS: SODIUM BICARBONATE 650 MG TABLET PO SCH ×2 (10:44→21:14)
[2017-11-27] MEDS: hydrALAZINE HCL 50 MG TABLET (FP) PO SCH (10:44)
[2017-11-27] MEDS: MULTIVITAMINS (DAILY MVI) TABLET (FP) PO SCH (10:44)
[2017-11-27] MEDS: DOXAZOSIN MESYLATE 4 MG TABLET PO SCH (10:44)
[2017-11-27] MEDS: CHOLECALCIFEROL (VITAMIN D3) 1,000 UNIT TABLET (FP) PO SCH (10:44)
[2017-11-27] MEDS: CYANOCOBALAMIN 1,000 MCG TABLET (FP) PO SCH (10:44)
[2017-11-27] MEDS ORDERED: DEXTROSE 5%-WATER - 1,000 ML with SODIUM BICARBONATE 8.4% - 150 MEQ IV SCH ×2 (11:15→11:30)
[2017-11-27] MEDS ORDERED: INSULIN (NOVOLOG) ASPART 100 UNITS/ML 10ML VIAL ONE ×2 (12:33→20:51)
--- NOTE | 2017-11-27 12:36 | PN ---
Progress Note, Physician Chief Complaint: Mr Isaacs complains that he is still shivering. No fevers, cp, sob, n/v. Says the shivering is improved from yesterday - Current Medication List Current Medications: Active Medications Acetaminophen (Tylenol -) 650 mg PO Q4H PRN PRN Reason: PAIN LEVEL 1-5 Atorvastatin Calcium (Lipitor -) 10 mg PO HS [facility] Cholecalciferol (Vitamin D3 -) 1,000 unit PO DAILY [facility] Last Admin: 11/27/17 10:44 Dose: 1,000 unit Cyanocobalamin (Vitamin B12 -) 1,000 mcg PO DAILY [facility] Last Admin: 11/27/17 10:44 Dose: 1,000 mcg Diphenhydramine HCl (Benadryl Injection -) 12.5 mg IVPUSH Q4H PRN PRN Reason: SHIVERING Doxazosin Mesylate (Cardura -) 4 mg PO DAILY [facility] Last Admin: 11/27/17 10:44 Dose: 4 mg Heparin Sodium (Porcine) (Heparin -) 5,000 unit SQ TID [facility] Last Admin: 11/27/17 06:00 Dose: 5,000 unit Hydralazine HCl (Apresoline -) 50 mg PO DAILY [facility] Last Admin: 11/27/17 10:44 Dose: 50 mg Piperacillin Sod/Tazobactam (Sod 2.25 gm/ Dextrose) 50 mls @ 100 mls/hr IVPB Q8H-IV [facility] PRN Reason: Protocol Last Admin: 11/27/17 10:31 Dose: 100 mls/hr Sodium Bicarbonate 75 meq/ (Sodium Chloride) 1,075 mls @ 83 mls/hr IV Q13H [facility] Insulin Aspart (Novolog Vial Sliding Scale -) 0 vial SQ ACHS [facility] PRN Reason: Protocol Last Admin: 11/27/17 07:22 Dose: 4 unit Insulin Detemir (Levemir Vial) 15 units SQ HS [facility] Last Admin: 11/26/17 23:00 Dose: 15 units Multivitamins/Minerals/Vitamin C (Tab-A-Vit -) 1 tab PO DAILY [facility] Last Admin: 11/27/17 10:44 Dose: 1 tab Ondansetron HCl (Zofran Injection) 4 mg IVPUSH Q6H PRN PRN Reason: NAUSEA Oxycodone HCl (Roxicodone -) 5 mg PO Q6H PRN PRN Reason: PAIN LEVEL 6-10 Sodium Bicarbonate (Sodium Bicarbonate -) 1,300 mg PO BID [facility] - Objective Vital Signs: Vital Signs Temperature 36.4 C 11/27/17 10:40 Pulse Rate 76 11/27/17 10:40 Respiratory Rate 22 11/27/17 10:40 Blood Pressure 162/80 11/27/17 10:40 O2 Sat by Pulse Oximetry (%) 100 11/27/17 10:40 Constitutional: Yes: Obese, Other (shivering) Cardiovascular: Yes: Regular Rate and Rhythm. No: Gallop, Murmur, Rub Respiratory: Yes: Regular, CTA Bilaterally. No: Rales, Rhonchi, Wheezes Gastrointestinal: Yes: Normal Bowel Sounds, Soft. No: Distention, Tenderness Extremities: Yes: WNL Edema: No Labs: CBC, BMP 11/27/17 06:12 11/27/17 07:40 INR, PTT INR 1.12 (0.82-1.09) 11/26/17 09:00 Problem List - Problems (1) Urinary tract infection Code(s): N39.0 - URINARY TRACT INFECTION, SITE NOT SPECIFIED Qualifiers: Urinary tract infection type: site unspecified Hematuria presence: with hematuria Qualified Code(s): N39.0 - Urinary tract infection, site not specified; R31.9 - Hematuria, unspecified; R31.9 - Hematuria, unspecified (2) Sepsis Code(s): A41.9 - SEPSIS, UNSPECIFIED ORGANISM (3) Metabolic acidosis Code(s): E87.2 - ACIDOSIS (4) Chronic kidney disease Code(s): N18.9 - CHRONIC KIDNEY DISEASE, UNSPECIFIED Qualifiers: Chronic kidney disease stage: stage 4 (severe) Qualified Code(s): N18.4 - Chronic kidney disease, stage 4 (severe) (5) Diabetes Code(s): E11.9 - TYPE 2 DIABETES MELLITUS WITHOUT COMPLICATIONS Qualifiers: Diabetes mellitus type: type 2 Diabetes mellitus senior living insulin use: with senior living use Diabetes mellitus complication status: with kidney complications Diabetes mellitus complication detail: with chronic kidney disease Chronic kidney disease stage: stage 4 (severe) Qualified Code(s): E11.22 - Type 2 diabetes mellitus with diabetic chronic kidney disease; N18.4 - Chronic kidney disease, stage 4 (severe); N18.4 - Chronic kidney disease, stage 4 (severe); N18.4 - Chronic kidney disease, stage 4 (severe); N18.4 - Chronic kidney disease, stage 4 (severe); Z79.4 - USP (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 of insulin; Z79.4 - USP (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 of insulin; Z79.4 - intermission coordinator (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 of insulin; Z79.4 - intermission coordinator (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 of insulin (6) HLD (hyperlipidemia) Code(s): E78.5 - HYPERLIPIDEMIA, UNSPECIFIED (7) Hypertension Code(s): I10 - ESSENTIAL (PRIMARY) HYPERTENSION Qualifiers: Hypertension type: essential hypertension Qualified Code(s): I10 - Essential (primary) hypertension Assessment/Plan (1) Urinary tract infection Assessment/Plan: -urine cultures positive for 4 different organisms -appreciate ID assistance -currently on zosyn -follow up cultures Code(s): N39.0 - URINARY TRACT INFECTION, SITE NOT SPECIFIED Qualifiers: Urinary tract infection type: site unspecified Hematuria presence: with hematuria Qualified Code(s): N39.0 - Urinary tract infection, site not specified; R31.9 - Hematuria, unspecified; R31.9 - Hematuria, unspecified (2) Sepsis Assessment/Plan: -secondary to UTI -still with rigors but says improving -continue antibiotics and IVF -continue prn tylenol -add prn benadryl for rigors Code(s): A41.9 - SEPSIS, UNSPECIFIED ORGANISM (3) Metabolic acidosis Assessment/Plan: -acute on chronic -appreciate nephrology assistance -bicarbonate added to IVF Code(s): E87.2 - ACIDOSIS (4) Chronic kidney disease Assessment/Plan: -stable -hold lasix and gentle hydration for short period Code(s): N18.9 - CHRONIC KIDNEY DISEASE, UNSPECIFIED Qualifiers: Chronic kidney disease stage: stage 4 (severe) Qualified Code(s): N18.4 - Chronic kidney disease, stage 4 (severe) (5) Diabetes Assessment/Plan: -diabetic diet -continue home regimen -FSBS and SSI Code(s): E11.9 - TYPE 2 DIABETES MELLITUS WITHOUT COMPLICATIONS Qualifiers: Diabetes mellitus type: type 2 Diabetes mellitus intermediate card tender insulin use: with intermediate card tender use Diabetes mellitus complication status: with kidney complications Diabetes mellitus complication detail: with chronic kidney disease Chronic kidney disease stage: stage 4 (severe) Qualified Code(s): E11.22 - Type 2 diabetes mellitus with diabetic chronic kidney disease; N18.4 - Chronic kidney disease, stage 4 (severe); N18.4 - Chronic kidney disease, stage 4 (severe); N18.4 - Chronic kidney disease, stage 4 (severe); N18.4 - Chronic kidney disease, stage 4 (severe); Z79.4 - intermission coordinator (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 of insulin; Z79.4 - USP (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 of insulin; Z79.4 - intermission coordinator (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 of insulin; Z79.4 - USP (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 of insulin (6) HLD (hyperlipidemia) Assessment/Plan: -continue lipitor Code(s): E78.5 - HYPERLIPIDEMIA, UNSPECIFIED (7) Hypertension Assessment/Plan: -controlled with hydralazine -morning hypertension noted, however before given hydralazine -follow up after dose given Code(s): I10 - ESSENTIAL (PRIMARY) HYPERTENSION Qualifiers: Hypertension type: essential hypertension Qualified Code(s): I10 - Essential (primary) hypertension
[2017-11-27] MEDS: SODIUM CHLORIDE 0.45% 1,000 ML with SODIUM BICARBONATE 8.4% - 75 MEQ IV SCH (13:37)
--- NOTE | 2017-11-27 15:40 | PN ---
Progress Note, Physician History of Present Illness: starting to feel better says doing well than yesterday - Current Medication List Current Medications: Active Medications Acetaminophen (Tylenol -) 650 mg PO Q4H PRN PRN Reason: PAIN LEVEL 1-5 Atorvastatin Calcium (Lipitor -) 10 mg PO HS [facility] Cholecalciferol (Vitamin D3 -) 1,000 unit PO DAILY [facility] Last Admin: 11/27/17 10:44 Dose: 1,000 unit Cyanocobalamin (Vitamin B12 -) 1,000 mcg PO DAILY [facility] Last Admin: 11/27/17 10:44 Dose: 1,000 mcg Diphenhydramine HCl (Benadryl Injection -) 12.5 mg IVPUSH Q4H PRN PRN Reason: SHIVERING Doxazosin Mesylate (Cardura -) 4 mg PO DAILY [facility] [place] Last Admin: 11/27/17 10:44 Dose: 4 mg Heparin Sodium (Porcine) (Heparin -) 5,000 unit SQ TID [facility] [place] Last Admin: 11/27/17 14:05 Dose: 5,000 unit Hydralazine HCl (Apresoline -) 50 mg PO DAILY [facility] [place] Last Admin: 11/27/17 10:44 Dose: 50 mg Piperacillin Sod/Tazobactam (Sod 2.25 gm/ Dextrose) 50 mls @ 100 mls/hr IVPB Q8H-IV [facility] [place] PRN Reason: Protocol Last Admin: 11/27/17 10:31 Dose: 100 mls/hr Sodium Bicarbonate 75 meq/ (Sodium Chloride) 1,075 mls @ 83 mls/hr IV Q13H [facility] [place] Last Admin: 11/27/17 13:37 Dose: 83 mls/hr Insulin Aspart (Novolog Vial Sliding Scale -) 0 vial SQ ACHS [facility] PRN Reason: Protocol Last Admin: 11/27/17 12:31 Dose: 4 unit Insulin Detemir (Levemir Vial) 15 units SQ HS [facility] [place] Last Admin: 11/26/17 23:00 Dose: 15 units Multivitamins/Minerals/Vitamin C (Tab-A-Vit -) 1 tab PO DAILY [facility] [place] Last Admin: 11/27/17 10:44 Dose: 1 tab Ondansetron HCl (Zofran Injection) 4 mg IVPUSH Q6H PRN PRN Reason: NAUSEA Oxycodone HCl (Roxicodone -) 5 mg PO Q6H PRN PRN Reason: PAIN LEVEL 6-10 Sodium Bicarbonate (Sodium Bicarbonate -) 1,300 mg PO BID [facility] - Objective Vital Signs: Vital Signs Temperature 98.4 F 11/27/17 15:31 Pulse Rate 87 11/27/17 15:31 Respiratory Rate 22 11/27/17 15:31 Blood Pressure 158/78 11/27/17 15:31 O2 Sat by Pulse Oximetry (%) 100 11/27/17 15:31 Constitutional: Yes: No Distress, Calm Neck: Yes: Supple Cardiovascular: Yes: Regular Rate and Rhythm Respiratory: Yes: Regular, CTA Bilaterally Gastrointestinal: Yes: Normal Bowel Sounds, Soft Extremities: Yes: WNL Integumentary: Yes: WNL Wound/Incision: Yes: Clean/Dry Neurological: Yes: Alert, Oriented Psychiatric: Yes: Alert, Oriented Labs: CBC, BMP 11/27/17 06:12 11/27/17 07:40 INR, PTT INR 1.12 (0.82-1.09) 11/26/17 09:00 Assessment/Plan Problem List - Problems (1) Urinary tract infection Code(s): N39.0 - URINARY TRACT INFECTION, SITE NOT SPECIFIED Qualifiers: Urinary tract infection type: site unspecified Hematuria presence: with hematuria Qualified Code(s): N39.0 - Urinary tract infection, site not specified; R31.9 - Hematuria, unspecified; R31.9 - Hematuria, unspecified (2) Sepsis Code(s): A41.9 - SEPSIS, UNSPECIFIED ORGANISM (3) Metabolic acidosis Code(s): E87.2 - ACIDOSIS (4) Chronic kidney disease Code(s): N18.9 - CHRONIC KIDNEY DISEASE, UNSPECIFIED Qualifiers: Chronic kidney disease stage: stage 4 (severe) Qualified Code(s): N18.4 - Chronic kidney disease, stage 4 (severe) (5) Diabetes Code(s): E11.9 - TYPE 2 DIABETES MELLITUS WITHOUT COMPLICATIONS Qualifiers: Diabetes mellitus type: type 2 Diabetes mellitus decorating kiln operator insulin use: with decorating kiln operator use Diabetes mellitus complication status: with kidney complications Diabetes mellitus complication detail: with chronic kidney disease Chronic kidney disease stage: stage 4 (severe) Qualified Code(s): E11.22 - Type 2 diabetes mellitus with diabetic chronic kidney disease; N18.4 - Chronic kidney disease, stage 4 (severe); N18.4 - Chronic kidney disease, stage 4 (severe); N18.4 - Chronic kidney disease, stage 4 (severe); N18.4 - Chronic kidney disease, stage 4 (severe); Z79.4 - silica mixer operator (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 of insulin; Z79.4 - silica mixer operator (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 of insulin; Z79.4 - silica mixer operator (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 of insulin; Z79.4 - intermediate (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 of insulin (6) HLD (hyperlipidemia) Code(s): E78.5 - HYPERLIPIDEMIA, UNSPECIFIED (7) Hypertension Code(s): I10 - ESSENTIAL (PRIMARY) HYPERTENSION Qualifiers: Hypertension type: essential hypertension Qualified Code(s): I10 - Essential (primary) hypertension patient has a history of esbl,but at thsi time i am going to start him on zosyn till the cx comes back continue abx await for sensitivities of the organisms rest continue current mgmt
--- NOTE | 2017-11-27 16:47 | PN ---
Progress Note (short form) - Note Progress Note: Renal Follow up for CKD and Metabolic acidosis Pt seen and examined at the bedside in the ED continues to have chills/shakes no sob, chest pain, abd pian making urine no fever tolerating oral diet Vital Signs Temperature 98.4 F 11/27/17 15:31 Pulse Rate 87 11/27/17 15:31 Respiratory Rate 22 11/27/17 15:31 Blood Pressure 158/78 11/27/17 15:31 O2 Sat by Pulse Oximetry (%) 100 11/27/17 15:31 Intake & Output 11/24/17 11/25/17 11/26/17 11/27/17 23:59 23:59 23:59 23:59 Intake Total 500 300 Output Total 300 1300 Balance 200 -1000 Weight 145.15 kg 145.15 kg NAD awake and alert RRR, No M/R CTA no rales or wheeze soft NT/ND No LE edema CBC, BMP 11/27/17 06:12 11/27/17 07:40 Current Medications Acetaminophen (Tylenol -) 650 mg PO Q4H PRN PRN Reason: PAIN LEVEL 1-5 Atorvastatin Calcium (Lipitor -) 10 mg PO [facility] Cholecalciferol (Vitamin D3 -) 1,000 unit PO DAILY [facility] Last Admin: 11/27/17 10:44 Dose: 1,000 unit Cyanocobalamin (Vitamin B12 -) 1,000 mcg PO DAILY [facility] Last Admin: 11/27/17 10:44 Dose: 1,000 mcg Diphenhydramine HCl (Benadryl Injection -) 12.5 mg IVPUSH Q4H PRN PRN Reason: SHIVERING Doxazosin Mesylate (Cardura -) 4 mg PO DAILY [facility] Last Admin: 11/27/17 10:44 Dose: 4 mg Heparin Sodium (Porcine) (Heparin -) 5,000 unit SQ TID [facility] Last Admin: 11/27/17 14:05 Dose: 5,000 unit Hydralazine HCl (Apresoline -) 50 mg PO DAILY [facility] Last Admin: 11/27/17 10:44 Dose: 50 mg Piperacillin Sod/Tazobactam (Sod 2.25 gm/ Dextrose) 50 mls @ 100 mls/hr IVPB Q8H-IV [facility] PRN Reason: Protocol Last Admin: 05/11/18 10:31 Dose: 100 mls/hr Sodium Bicarbonate 75 meq/ (Sodium Chloride) 1,075 mls @ 83 mls/hr IV Q13H [facility] Last Admin: 11/27/17 13:37 Dose: 83 mls/hr Insulin Aspart (Novolog Vial Sliding Scale -) 0 vial SQ ACHS [facility] PRN Reason: Protocol Last Admin: 11/27/17 12:31 Dose: 4 unit Insulin Detemir (Levemir Vial) 15 units SQ HS [facility] Last Admin: 11/26/17 23:00 Dose: 15 units Multivitamins/Minerals/Vitamin C (Tab-A-Vit -) 1 tab PO DAILY [facility] Last Admin: 11/27/17 10:44 Dose: 1 tab Ondansetron HCl (Zofran Injection) 4 mg IVPUSH Q6H PRN PRN Reason: NAUSEA Oxycodone HCl (Roxicodone -) 5 mg PO Q6H PRN PRN Reason: PAIN LEVEL 6-10 Sodium Bicarbonate (Sodium Bicarbonate -) 1,300 mg PO BID [facility] 66 year old gentleman with PMhx of Urethral Diversion, CKD Stage 4, COPD, Hypertension, DM, Hyperlipidemia presented to the ED with complaints of tremors and shaking and found to have Cr of 2.9 and Bicarb of 13. #CKD Stage 4 #Non-anion gap metabolic acidosis with respiratory compensation #Tremors #Leukocytosis r/o infection Renal function stable continue IVF with bicarb and oral bicarb as well continue Abx as per ID on Hydralazine for BP control, if uncontrolled can consider addition of CCB Freddie Forbes DO
[2017-11-27] MEDS ORDERED: PT OWN MED DRAWER 7, Y5N ONE ×2 (17:35→17:59)
[2017-11-27] MEDS: INSULIN (LEVEMIR) 100 UNITS/ML UNITS SQ SCH (21:15)
[2017-11-27] MEDS: ATORVASTATIN CA 10 MG TABLET (FP) PO SCH (21:15)
[2017-11-28] MEDS ORDERED: PIPERACILLIN/TAZOBACTAM 2.25 GM VIAL IVPB ONE ×2 (02:03→10:42)
[2017-11-28] MEDS ORDERED: DEXTROSE 5%-WATER - 50 ML IVPB ONE ×2 (02:03→10:43)
[2017-11-28] MEDS: SODIUM CHLORIDE 0.45% 1,000 ML with SODIUM BICARBONATE 8.4% - 75 MEQ IV SCH ×2 (02:15→14:44)
[2017-11-28] MEDS: PIPERACILLIN/TAZOB 2.25 GM 2.25 GM in DEXTROSE 5%-WATER - 50 ML IVPB SCH ×3 (02:15→17:44)
[2017-11-28] MEDS: INSULIN SLIDING SCALE (NOVOLOG) 1 VIAL SQ SCH ×4 (06:00→21:42)
[2017-11-28] MEDS: HEPARIN NA (PORCINE) 5,000 UNITS/ML 1ML VIAL SQ SCH ×3 (06:00→21:45)
[2017-11-28] MEDS ORDERED: INSULIN (NOVOLOG) ASPART 100 UNITS/ML 10ML VIAL ONE ×2 (06:12→17:38)
[2017-11-28] MEDS ORDERED: INSULIN (LEVEMIR) 100 UNITS/ML UNITS SQ ONE (06:13)
[2017-11-28 08:02] LABS: BASO % 0.5 % (0-2.0); EOS % 9.2 % (0-4.5); HEMOGLOBIN 11.5 GM/dL (11.7-16.9); LYMPH % 12.1 % (8-40); MEAN CELL VOLUME 82.4 fl (80-96); MEAN PLT VOLUME 8.1 fl (7.5-11.1); MONO % 11.9 % (3.8-10.2); NEUT % 66.3 % (42.8-82.8); PLATELET COUNT 257 K/MM3 (134-434); RBC 4.12 M/mm3 (4.00-5.60); RDW 14.4 % (11.9-15.9); WHITE BLOOD COUNT 8.2 K/mm3 (4.0-10.0)
[2017-11-28 08:40] LABS: CHLORIDE 112 mmol/L (98-107); POTASSIUM 4.1 mmol/L (3.5-5.1); SODIUM 139 mmol/L (136-145)
[2017-11-28 09:04] LABS: ANION GAP 11 (8-16); BLOOD UREA NITROGEN 46 mg/dL (7-18); CALCIUM 8.6 mg/dL (8.5-10.1); CO2 16 mmol/L (21-32); CREATININE 2.6 mg/dL (0.7-1.3); GLUCOSE,RANDOM 176 mg/dL (74-106); MAGNESIUM 2.4 mg/dL (1.8-2.4); PHOSPHOROUS 2.9 mg/dL (2.5-4.9)
--- NOTE | 2017-11-28 10:40 | PN ---
Progress Note, Physician Chief Complaint: Fever shaking chills History of Present Illness: 66 year old gentleman with PMhx of Urethral Diversion, CKD Stage 4, COPD, Hypertension, DM, Hyperlipidemia Presented to the ED with complaints of shaking chills and found to have Cr of 2.9 - Current Medication List Current Medications: Active Medications Acetaminophen (Tylenol -) 650 mg PO Q4H PRN PRN Reason: PAIN LEVEL 1-5 Atorvastatin Calcium (Lipitor -) 10 mg PO HS [facility] Last Admin: 11/27/17 21:15 Dose: 10 mg Cholecalciferol (Vitamin D3 -) 1,000 unit PO DAILY [facility] Last Admin: 11/27/17 10:44 Dose: 1,000 unit Cyanocobalamin (Vitamin B12 -) 1,000 mcg PO DAILY [facility] Last Admin: 11/27/17 10:44 Dose: 1,000 mcg Diphenhydramine HCl (Benadryl Injection -) 12.5 mg IVPUSH Q4H PRN PRN Reason: SHIVERING Doxazosin Mesylate (Cardura -) 4 mg PO DAILY [facility] Last Admin: 11/27/17 10:44 Dose: 4 mg Heparin Sodium (Porcine) (Heparin -) 5,000 unit SQ TID [facility] Last Admin: 11/28/17 06:00 Dose: 5,000 unit Hydralazine HCl (Apresoline -) 50 mg PO DAILY [facility] Last Admin: 11/27/17 10:44 Dose: 50 mg Piperacillin Sod/Tazobactam (Sod 2.25 gm/ Dextrose) 50 mls @ 100 mls/hr IVPB Q8H-IV [facility] PRN Reason: Protocol Last Admin: 11/28/17 02:15 Dose: 100 mls/hr Sodium Bicarbonate 75 meq/ (Sodium Chloride) 1,075 mls @ 83 mls/hr IV Q13H [facility] Last Admin: 11/28/17 02:15 Dose: Not Given Insulin Aspart (Novolog Vial Sliding Scale -) 0 vial SQ ACHS [facility] PRN Reason: Protocol Last Admin: 11/28/17 06:00 Dose: 2 unit Insulin Detemir (Levemir Vial) 15 units SQ HS [facility] Last Admin: 11/27/17 21:15 Dose: 15 units Multivitamins/Minerals/Vitamin C (Tab-A-Vit -) 1 tab PO DAILY [facility] Last Admin: 11/27/17 10:44 Dose: 1 tab Ondansetron HCl (Zofran Injection) 4 mg IVPUSH Q6H PRN PRN Reason: NAUSEA Oxycodone HCl (Roxicodone -) 5 mg PO Q6H PRN PRN Reason: PAIN LEVEL 6-10 Sodium Bicarbonate (Sodium Bicarbonate -) 1,300 mg PO BID [facility] Last Admin: 11/27/17 21:14 Dose: 1,300 mg - Objective Vital Signs: Vital Signs Temperature 98.3 F 11/28/17 06:00 Pulse Rate 93 H 11/28/17 06:00 Respiratory Rate 20 11/28/17 06:00 Blood Pressure 117/89 11/28/17 06:00 O2 Sat by Pulse Oximetry (%) 100 11/27/17 21:00 Constitutional: Yes: Anxious, Diaphoresis HENT: Yes: Normocephalic Cardiovascular: Yes: S1, S2 Respiratory: Yes: Regular, CTA Bilaterally Gastrointestinal: Yes: Normal Bowel Sounds, Abdomen, Obese Genitourinary: Yes: Other (The patient has an ileal conduit, and is draining cloudy urine.) Edema: Yes Edema: LLE: 2+, RLE: 2+ Labs: CBC, BMP 11/28/17 06:15 11/28/17 06:15 INR, PTT INR 1.12 (0.82-1.09) 11/26/17 09:00 Problem List - Problems (1) Urinary tract infection Code(s): N39.0 - URINARY TRACT INFECTION, SITE NOT SPECIFIED Qualifiers: Urinary tract infection type: site unspecified Hematuria presence: with hematuria Qualified Code(s): N39.0 - Urinary tract infection, site not specified; R31.9 - Hematuria, unspecified; R31.9 - Hematuria, unspecified (2) ARF (acute renal failure) Code(s): N17.9 - ACUTE KIDNEY FAILURE, UNSPECIFIED Qualifiers: Acute renal failure type: unspecified Qualified Code(s): N17.9 - Acute kidney failure, unspecified (3) Anemia Code(s): D64.9 - ANEMIA, UNSPECIFIED (4) Bladder cancer Code(s): C67.9 - MALIGNANT NEOPLASM OF BLADDER, UNSPECIFIED (5) CVA (cerebral vascular accident) Code(s): I63.9 - CEREBRAL INFARCTION, UNSPECIFIED (6) Chronic kidney disease Code(s): N18.9 - CHRONIC KIDNEY DISEASE, UNSPECIFIED Qualifiers: Chronic kidney disease stage: stage 4 (severe) Qualified Code(s): N18.4 - Chronic kidney disease, stage 4 (severe) (7) Hypertension Code(s): I10 - ESSENTIAL (PRIMARY) HYPERTENSION Qualifiers: Hypertension type: essential hypertension Qualified Code(s): I10 - Essential (primary) hypertension (8) Metabolic acidosis Code(s): E87.2 - ACIDOSIS (9) Obesity Code(s): E66.9 - OBESITY, UNSPECIFIED Qualifiers: Obesity type: due to excess calories Obesity classification: unspecified obesity classification Serious obesity comorbidity presence: unspecified whether serious comorbidity present Qualified Code(s): E66.09 - Other obesity due to excess calories (10) Sepsis Code(s): A41.9 - SEPSIS, UNSPECIFIED ORGANISM Assessment/Plan 66 year old gentleman with PMhx of Urethral Diversion, CKD Stage 4, COPD, Hypertension, DM, Hyperlipidemia Presented with complaints of tremors and shaking and found to have Cr of 2.9 and Bicarb of 13. CKD Stage 4.. Azotemia slowly improving to his baseline. Non-anion gap metabolic acidosis with Respiratory compensation. Improving with IV Bicarbonate supplements. Shaking chills. Leukocytosis . Possible urinary infection Plan: Continue IVF with bicarb and oral bicarb as well Continue Abx as per ID Will monitor the Renal/ Electrolyte profile with you. Thank you. Mariangel Kirkland MD
[2017-11-28] MEDS: CYANOCOBALAMIN 1,000 MCG TABLET (FP) PO SCH (10:50)
[2017-11-28] MEDS: SODIUM BICARBONATE 650 MG TABLET PO SCH ×2 (10:50→21:42)
[2017-11-28] MEDS: hydrALAZINE HCL 50 MG TABLET (FP) PO SCH (10:50)
[2017-11-28] MEDS: MULTIVITAMINS (DAILY MVI) TABLET (FP) PO SCH (10:50)
[2017-11-28] MEDS: DOXAZOSIN MESYLATE 4 MG TABLET PO SCH (10:51)
[2017-11-28] MEDS: CHOLECALCIFEROL (VITAMIN D3) 1,000 UNIT TABLET (FP) PO SCH (10:51)
--- NOTE | 2017-11-28 12:09 | PN ---
Progress Note (short form) - Note Progress Note: asymptomatic. states his chills have resolved. denies Cp, SOB, fever, chills, N/ V/C/D Current Medications Generic Name Dose Route Start Last Admin Trade Name Freq PRN Reason Stop Dose Admin Acetaminophen 650 mg 11/26/17 12:19 Tylenol - PO Q4H PRN PAIN LEVEL 1-5 Atorvastatin Calcium 10 mg 11/27/17 10:00 11/27/17 21:15 Lipitor - PO 10 mg HS SHANEL Administration Cholecalciferol 1,000 unit 11/27/17 10:00 11/28/17 10:51 Vitamin D3 - PO 1,000 unit DAILY SHANEL Administration Cyanocobalamin 1,000 mcg 11/27/17 10:00 11/28/17 10:50 Vitamin B12 - PO 1,000 mcg DAILY SHANEL Administration Diphenhydramine HCl 12.5 mg 11/27/17 12:31 Benadryl Injection - IVPUSH Q4H PRN SHIVERING Doxazosin Mesylate 4 mg 11/27/17 10:00 11/28/17 10:51 Cardura - PO 4 mg DAILY SHANEL Administration Heparin Sodium (Porcine) 5,000 unit 11/27/17 06:00 11/28/17 06:00 Heparin - SQ 5,000 unit TID SHANEL Administration Hydralazine HCl 50 mg 11/27/17 10:00 11/28/17 10:50 Apresoline - PO 50 mg DAILY SHANEL Administration Piperacillin Sod/Tazobactam 50 mls @ 100 mls/hr 11/26/17 18:00 11/28/17 10:51 Sod 2.25 gm/ Dextrose IVPB 100 mls/hr Q8H-IV SHANEL Administration Protocol Sodium Bicarbonate 75 meq/ 1,075 mls @ 83 mls/hr 11/27/17 12:30 11/28/17 02: 15 Sodium Chloride IV Not Given Q13H SHANEL Insulin Aspart 0 vial 11/26/17 16:30 11/28/17 06:00 Novolog Vial Sliding Scale - SQ 2 unit ACHS SHANEL Administration Protocol Insulin Detemir 15 units 11/26/17 22:00 11/27/17 21:15 Levemir Vial SQ 15 units HS SHANEL Administration Multivitamins/Minerals/Vitamin C 1 tab 11/27/17 10:00 11/28/17 10:50 Tab-A-Vit - PO 1 tab DAILY SHANEL Administration Ondansetron HCl 4 mg 11/26/17 12:19 Zofran Injection IVPUSH Q6H PRN NAUSEA Oxycodone HCl 5 mg 11/26/17 12:19 Roxicodone - PO Q6H PRN PAIN LEVEL 6-10 Sodium Bicarbonate 1,300 mg 11/27/17 22:00 11/28/17 10:50 Sodium Bicarbonate - PO 1,300 mg BID SHANEL Administration Last Vital Signs Temp Pulse Resp BP Pulse Ox 98.3 F 93 H 20 117/89 100 11/28/17 06:00 11/28/17 06:00 11/28/17 06:00 11/28/17 06:00 11/27/17 21:00 General NAD CV S1 S2 + Lungs CTA B/L no wheezing/rales/rhonchi Abdomen soft NT/ND, old healing surgical scars. +urostomy bag with pink stoma Extremities no pedal edema CBCD WBC 8.2 K/mm3 (4.0-10.0) 11/28/17 06:15 RBC 4.12 M/mm3 (4.00-5.60) 11/28/17 06:15 Hgb 11.5 GM/dL (11.7-16.9) L 11/28/17 06:15 Hct 34.0 % (35.4-49) L 11/28/17 06:15 MCV 82.4 fl (80-96) 11/28/17 06:15 MCHC 34.0 g/dl (32.0-35.9) 11/28/17 06:15 RDW 14.4 % (11.9-15.9) 11/28/17 06:15 Plt Count 257 K/MM3 (134-434) 11/28/17 06:15 MPV 8.1 fl (7.5-11.1) 11/28/17 06:15 CMP Sodium 139 mmol/L (136-145) 11/28/17 06:15 Potassium 4.1 mmol/L (3.5-5.1) 11/28/17 06:15 Chloride 112 mmol/L (98-107) H 11/28/17 06:15 Carbon Dioxide 16 mmol/L (21-32) L 05/12/18 06:15 Anion Gap 11 (8-16) 11/28/17 06:15 BUN 46 mg/dL (7-18) H 11/28/17 06:15 Creatinine 2.6 mg/dL (0.7-1.3) H 11/28/17 06:15 Creat Clearance w eGFR 21.75 (>60) 11/26/17 09:00 Calcium 8.6 mg/dL (8.5-10.1) 11/28/17 06:15 Total Bilirubin 0.6 mg/dL (0.2-1.0) D 11/26/17 09:00 AST 17 U/L (15-37) D 11/26/17 09:00 ALT 26 U/L (12-78) 11/26/17 09:00 Alkaline Phosphatase 74 U/L (45-117) 11/26/17 09:00 Total Protein 7.4 g/dl (6.4-8.2) 11/26/17 09:00 Albumin 3.4 g/dl (3.4-5.0) 11/26/17 09:00 Microbiology 11/26/17 09:20 Urine Culture - Preliminary Urine - Urostomy Bag Lactose Fermenting Neg Bacilli Lactose Fermenting Neg Bacilli#2 Non Lactose Fermenting Gnb Group D Strep Or Entero Coccus 11/26/17 09:00 Blood Culture - Preliminary Blood - Peripheral Venous NO GROWTH OBTAINED AFTER 48 HOURS, INCUBATION TO CONTINUE FOR 3 DAYS. 11/26/17 09:00 Blood Culture - Preliminary Blood - Peripheral Venous NO GROWTH OBTAINED AFTER 48 HOURS, INCUBATION TO CONTINUE FOR 3 DAYS. A/P 66yo M with PMH bladder ca s/p cystectomy with urostomy, CKD, COPD, CVA, HTN , Dyslipidemia and DM presented with chills and found to be septic due to UTI 1. Sepsis due to UTI- clinically improved. sepsis resolved. hx of ESBL last year. states this is his 2nd time with UTI. changes urostomy bag [id number]. was changed on this admission. on Zosyn day 3. will await final Ucx results to determine abx course. ID on board. contact precautions. 2. NAGMA- improving. on bicarb supplements (po and IV). plan to d/c IV tomorrow if bicarb continues to trend up. nephrology on board 3. CKD- at baseline 4. Dyslipidemia-statin 5. CVA- 6. DM- controlled. cont levemir and iss 7. DVT ppx- Hep sq Visit type - Emergency Visit Emergency Visit: Yes ED Registration Date: 11/26/17 Care time: The patient presented to the Emergency Department on the above date and was hospitalized for further evaluation of their emergent condition. - New Patient This patient is new to me today: Yes Date on this admission: 11/28/17 - Critical Care Critical Care patient: No - Discharge Referral Referred to [facility] Med P.C.: No
[2017-11-28] MEDS ORDERED: PT OWN MED DRAWER 7, Y5N ONE ×2 (14:41→18:07)
--- NOTE | 2017-11-28 15:13 | PN ---
Progress Note, Physician History of Present Illness: Pt states he is feeling better. No fever but sometimes feels cold. No diarrhea or vomiting. No other specific complaints. - Current Medication List Current Medications: Active Medications Acetaminophen (Tylenol -) 650 mg PO Q4H PRN PRN Reason: PAIN LEVEL 1-5 Atorvastatin Calcium (Lipitor -) 10 mg PO HS [facility] Last Admin: 11/27/17 21:15 Dose: 10 mg Cholecalciferol (Vitamin D3 -) 1,000 unit PO DAILY [facility] Last Admin: 11/28/17 10:51 Dose: 1,000 unit Cyanocobalamin (Vitamin B12 -) 1,000 mcg PO DAILY [facility] Last Admin: 11/28/17 10:50 Dose: 1,000 mcg Diphenhydramine HCl (Benadryl Injection -) 12.5 mg IVPUSH Q4H PRN PRN Reason: SHIVERING Doxazosin Mesylate (Cardura -) 4 mg PO DAILY [facility] Last Admin: 11/28/17 10:51 Dose: 4 mg Heparin Sodium (Porcine) (Heparin -) 5,000 unit SQ TID [facility] Last Admin: 11/28/17 14:44 Dose: 5,000 unit Hydralazine HCl (Apresoline -) 50 mg PO DAILY [facility] Last Admin: 11/28/17 10:50 Dose: 50 mg Piperacillin Sod/Tazobactam (Sod 2.25 gm/ Dextrose) 50 mls @ 100 mls/hr IVPB Q8H-IV SHANEL PRN Reason: Protocol Last Admin: 11/28/17 10:51 Dose: 100 mls/hr Sodium Bicarbonate 75 meq/ (Sodium Chloride) 1,075 mls @ 83 mls/hr IV Q13H [facility] Last Admin: 11/28/17 14:44 Dose: 83 mls/hr Insulin Aspart (Novolog Vial Sliding Scale -) 0 vial SQ ACHS SHANEL PRN Reason: Protocol Last Admin: 11/28/17 12:26 Dose: 4 unit Insulin Detemir (Levemir Vial) 15 units SQ HS [facility] Last Admin: 11/27/17 21:15 Dose: 15 units Multivitamins/Minerals/Vitamin C (Tab-A-Vit -) 1 tab PO DAILY [facility] Last Admin: 11/28/17 10:50 Dose: 1 tab Ondansetron HCl (Zofran Injection) 4 mg IVPUSH Q6H PRN PRN Reason: NAUSEA Oxycodone HCl (Roxicodone -) 5 mg PO Q6H PRN PRN Reason: PAIN LEVEL 6-10 Sodium Bicarbonate (Sodium Bicarbonate -) 1,300 mg PO BID SHANEL Last Admin: 11/28/17 10:50 Dose: 1,300 mg - Objective Vital Signs: Vital Signs Temperature 98.4 F 11/28/17 14:44 Pulse Rate 81 11/28/17 14:44 Respiratory Rate 18 11/28/17 14:44 Blood Pressure 127/70 11/28/17 14:44 O2 Sat by Pulse Oximetry (%) 100 11/28/17 09:00 Constitutional: Yes: No Distress, Calm Cardiovascular: Yes: Regular Rate and Rhythm Respiratory: Yes: Regular Gastrointestinal: Yes: Normal Bowel Sounds, Soft Genitourinary: Yes: Other (urostomy) Integumentary: Yes: WNL Neurological: Yes: Alert, Oriented Labs: CBC, BMP 11/28/17 06:15 11/28/17 06:15 INR, PTT INR 1.12 (0.82-1.09) 11/26/17 09:00 Microbiology 11/26/17 09:20 Urine - Urostomy Bag Urine Culture - Preliminary Lactose Fermenting Neg Bacilli Lactose Fermenting Neg Bacilli#2 Non Lactose Fermenting Gnb Group D Strep Or Entero Coccus 11/26/17 09:00 Blood - Peripheral Venous Blood Culture - Preliminary NO GROWTH OBTAINED AFTER 48 HOURS, INCUBATION TO CONTINUE FOR 3 DAYS. 11/26/17 09:00 Blood - Peripheral Venous Blood Culture - Preliminary NO GROWTH OBTAINED AFTER 48 HOURS, INCUBATION TO CONTINUE FOR 3 DAYS. Problem List - Problems (1) Urinary tract infection Code(s): N39.0 - URINARY TRACT INFECTION, SITE NOT SPECIFIED Qualifiers: Urinary tract infection type: site unspecified Hematuria presence: with hematuria Qualified Code(s): N39.0 - Urinary tract infection, site not specified; R31.9 - Hematuria, unspecified; R31.9 - Hematuria, unspecified (2) ARF (acute renal failure) Code(s): N17.9 - ACUTE KIDNEY FAILURE, UNSPECIFIED Qualifiers: Acute renal failure type: unspecified Qualified Code(s): N17.9 - Acute kidney failure, unspecified (3) Anemia Code(s): D64.9 - ANEMIA, UNSPECIFIED (4) Bladder cancer Code(s): C67.9 - MALIGNANT NEOPLASM OF BLADDER, UNSPECIFIED (5) CVA (cerebral vascular accident) Code(s): I63.9 - CEREBRAL INFARCTION, UNSPECIFIED (6) Chronic kidney disease Code(s): N18.9 - CHRONIC KIDNEY DISEASE, UNSPECIFIED Qualifiers: Chronic kidney disease stage: stage 4 (severe) Qualified Code(s): N18.4 - Chronic kidney disease, stage 4 (severe) (7) Diabetes Code(s): E11.9 - TYPE 2 DIABETES MELLITUS WITHOUT COMPLICATIONS Qualifiers: Diabetes mellitus type: type 2 Diabetes mellitus process mechanic insulin use: with care home use Diabetes mellitus complication status: with kidney complications Diabetes mellitus complication detail: with chronic kidney disease Chronic kidney disease stage: stage 4 (severe) Qualified Code(s): E11.22 - Type 2 diabetes mellitus with diabetic chronic kidney disease; N18.4 - Chronic kidney disease, stage 4 (severe); N18.4 - Chronic kidney disease, stage 4 (severe); N18.4 - Chronic kidney disease, stage 4 (severe); N18.4 - Chronic kidney disease, stage 4 (severe); Z79.4 - supervisor finishing department (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 of insulin; Z79.4 - jail (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 of insulin; Z79.4 - jail (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 of insulin; Z79.4 - supervisor finishing department (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 of insulin (8) H/O total cystectomy Code(s): Z98.89 - OTHER SPECIFIED POSTPROCEDURAL STATES * DO NOT USE * (9) Hypertension Code(s): I10 - ESSENTIAL (PRIMARY) HYPERTENSION Qualifiers: Hypertension type: essential hypertension Qualified Code(s): I10 - Essential (primary) hypertension (10) Leukocytosis Code(s): D72.829 - ELEVATED WHITE BLOOD CELL COUNT, UNSPECIFIED Qualifiers: Leukocytosis type: bandemia Qualified Code(s): D72.825 - Bandemia Assessment/Plan Polymicrobial UTI Bladder CA s/p cystectomy DM HTN -- wbc normal, afebrile -- f/u final urine culture isolates -- continue Zosyn for now will f/u
[2017-11-28] MEDS: ATORVASTATIN CA 10 MG TABLET (FP) PO SCH (21:42)
[2017-11-28] MEDS: INSULIN (LEVEMIR) 100 UNITS/ML UNITS SQ SCH (21:43)
[2017-11-29] MEDS: PIPERACILLIN/TAZOB 2.25 GM 2.25 GM in DEXTROSE 5%-WATER - 50 ML IVPB SCH ×3 (01:16→17:37)
[2017-11-29] MEDS: HEPARIN NA (PORCINE) 5,000 UNITS/ML 1ML VIAL SQ SCH ×3 (06:10→21:20)
[2017-11-29] MEDS: INSULIN SLIDING SCALE (NOVOLOG) 1 VIAL SQ SCH ×4 (06:13→21:23)
[2017-11-29] MEDS: SODIUM CHLORIDE 0.45% 1,000 ML with SODIUM BICARBONATE 8.4% - 75 MEQ IV SCH (06:13)
[2017-11-29 07:57] LABS: HEMATOCRIT 32.6 % (35.4-49); HEMOGLOBIN 11.3 GM/dL (11.7-16.9); MCHC 34.6 g/dl (32.0-35.9); MEAN CELL VOLUME 80.9 fl (80-96); MEAN PLT VOLUME 8.1 fl (7.5-11.1); PLATELET COUNT 255 K/MM3 (134-434); RBC 4.03 M/mm3 (4.00-5.60); RDW 14.8 % (11.9-15.9); WHITE BLOOD COUNT 7.7 K/mm3 (4.0-10.0)
[2017-11-29 08:42] LABS: ANION GAP 10 (8-16); BLOOD UREA NITROGEN 45 mg/dL (7-18); CALCIUM 8.6 mg/dL (8.5-10.1); CHLORIDE 112 mmol/L (98-107); CO2 18 mmol/L (21-32); CREATININE 2.7 mg/dL (0.7-1.3); GLUCOSE,RANDOM 178 mg/dL (74-106); POTASSIUM 4.3 mmol/L (3.5-5.1); SODIUM 140 mmol/L (136-145)
--- NOTE | 2017-11-29 09:48 | PN ---
Physical Exam: SUBJECTIVE: Patient seen and examined. He reports having chills. He denies CP, SOB, abdominal pain. OBJECTIVE: Vital Signs Period Temp Pulse Resp BP Sys/Argueta Pulse Ox Last 24 Hr 98.2 F-98.4 F 81-89 18-20 120-127/70-91 100 GENERAL: The patient is awake, alert, and fully oriented, in no acute distress. LUNGS: Breath sounds equal, clear to auscultation bilaterally, no wheezes, no crackles, no accessory muscle use. HEART: Regular rate and rhythm, S1, S2 without murmur, rub or gallop. ABDOMEN: Obese, soft, nontender, nondistended, normoactive bowel sounds, (+) urostomy. EXTREMITIES: 2+ pulses, warm, well-perfused, 1+ edema. Laboratory Results - last 24 hr 11/28/17 11/28/17 11/28/17 12:12 17:13 21:40 WBC RBC Hgb Hct MCV MCH MCHC RDW Plt Count MPV Sodium Potassium Chloride Carbon Dioxide Anion Gap BUN Creatinine POC Glucometer 235 194 260 Random Glucose Calcium 11/29/17 11/29/17 11/29/17 06:12 07:00 07:00 WBC 7.7 RBC 4.03 Hgb 11.3 L Hct 32.6 L MCV 80.9 MCH 28.0 MCHC 34.6 RDW 14.8 Plt Count 255 MPV 8.1 Sodium 140 Potassium 4.3 Chloride 112 H Carbon Dioxide 18 L Anion Gap 10 BUN 45 H Creatinine 2.7 H POC Glucometer 206 Random Glucose 178 H Calcium 8.6 Active Medications Generic Name Dose Route Start Last Admin Trade Name Osvaldo PRN Reason Stop Dose Admin Acetaminophen 650 mg 11/26/17 12:19 Tylenol - PO Q4H PRN PAIN LEVEL 1-5 Atorvastatin Calcium 10 mg 11/27/17 10:00 11/28/17 21:42 Lipitor - PO 10 mg HS SHANEL Administration Cholecalciferol 1,000 unit 11/27/17 10:00 11/28/17 10:51 Vitamin D3 - PO 1,000 unit DAILY SHANEL Administration Cyanocobalamin 1,000 mcg 11/27/17 10:00 11/28/17 10:50 Vitamin B12 - PO 1,000 mcg DAILY SHANEL Administration Diphenhydramine HCl 12.5 mg 11/27/17 12:31 Benadryl Injection - IVPUSH Q4H PRN SHIVERING Doxazosin Mesylate 4 mg 11/27/17 10:00 11/28/17 10:51 Cardura - PO 4 mg DAILY HSANEL Administration Heparin Sodium (Porcine) 5,000 unit 11/27/17 06:00 11/29/17 06:10 Heparin - SQ 5,000 unit TID SHANEL Administration Hydralazine HCl 50 mg 11/27/17 10:00 11/28/17 10:50 Apresoline - PO 50 mg DAILY SHANEL Administration Piperacillin Sod/Tazobactam 50 mls @ 100 mls/hr 11/26/17 18:00 11/29/17 01:16 Sod 2.25 gm/ Dextrose IVPB Not Given Q8H-IV SHANEL Protocol Sodium Bicarbonate 75 meq/ 1,075 mls @ 83 mls/hr 11/27/17 12:30 11/29/17 06: 13 Sodium Chloride IV Not Given Q13H SHANEL Insulin Aspart 0 vial 11/26/17 16:30 11/29/17 06:13 Novolog Vial Sliding Scale - SQ 4 unit ACHS [facility] Administration Protocol Insulin Detemir 15 units 11/26/17 22:00 11/28/17 21:43 Levemir Vial SQ 15 units HS SHANEL Administration Multivitamins/Minerals/Vitamin C 1 tab 11/27/17 10:00 11/28/17 10:50 Tab-A-Vit - PO 1 tab DAILY SHANEL Administration Ondansetron HCl 4 mg 11/26/17 12:19 Zofran Injection IVPUSH Q6H PRN NAUSEA Oxycodone HCl 5 mg 11/26/17 12:19 Roxicodone - PO Q6H PRN PAIN LEVEL 6-10 Sodium Bicarbonate 1,300 mg 11/27/17 22:00 11/28/17 21:42 Sodium Bicarbonate - PO 1,300 mg BID SHANEL Administration ASSESSMENT/PLAN: This is a 66 year old man with a history of bladder cancer, cystectomy, ileal conduit, stage 4 CKD, COPD, CVA, HTN, hyperlipidemia, type 2 DM who presented to the ED with chills. 1. Sepsis secondary to UTI - Has history of ESBL (+) E. coli\ - Urine culture growing lactose fermenting and non-lactose fermenting gram negative bacilli, group D Strep - Continue Zosyn (day 3) - Awaiting identification and sensitivities 2. Non anion gap metabolic acidosis secondary to ileal conduit - Improving with sodium bicarb 3. Stage 4 CKD - Stable 4. Hyperlipidemia - Continue Liptor 5. HTN - Continue Hydralazine, Cardura 6. COPD - Stable 7. History of CVA - Continue Lipitor 8. Type 2 DM - Continue Levemir, Novolog sliding scale 9. History of bladder cancer, cystectomy, ileal conduit Visit type - Emergency Visit Emergency Visit: Yes ED Registration Date: 11/26/17 Care time: The patient presented to the Emergency Department on the above date and was hospitalized for further evaluation of their emergent condition. - New Patient This patient is new to me today: Yes Date on this admission: 11/29/17 - Critical Care Critical Care patient: No - Discharge Referral Referred to [facility] Med P.C.: No
[2017-11-29] MEDS ORDERED: PT OWN MED DRAWER 7, Y5N ONE (09:53)
[2017-11-29] MEDS: SODIUM BICARBONATE 650 MG TABLET PO SCH ×2 (09:55→21:19)
[2017-11-29] MEDS: CYANOCOBALAMIN 1,000 MCG TABLET (FP) PO SCH (09:55)
[2017-11-29] MEDS: MULTIVITAMINS (DAILY MVI) TABLET (FP) PO SCH (09:55)
[2017-11-29] MEDS: hydrALAZINE HCL 50 MG TABLET (FP) PO SCH (09:55)
[2017-11-29] MEDS: CHOLECALCIFEROL (VITAMIN D3) 1,000 UNIT TABLET (FP) PO SCH (09:55)
[2017-11-29] MEDS: DOXAZOSIN MESYLATE 4 MG TABLET PO SCH (09:55)
--- NOTE | 2017-11-29 13:38 | PN ---
Progress Note, Physician History of Present Illness: Pt states he feels well. Has been having 1 loose stool in the past couple of days but without significant abd pain/cramping. Remains afebrile without other complaints. - Current Medication List Current Medications: Active Medications Acetaminophen (Tylenol -) 650 mg PO Q4H PRN PRN Reason: PAIN LEVEL 1-5 Atorvastatin Calcium (Lipitor -) 10 mg PO HS [facility] Last Admin: 11/28/17 21:42 Dose: 10 mg Cholecalciferol (Vitamin D3 -) 1,000 unit PO DAILY [facility] Last Admin: 11/29/17 09:55 Dose: 1,000 unit Cyanocobalamin (Vitamin B12 -) 1,000 mcg PO DAILY [facility] Last Admin: 11/29/17 09:55 Dose: 1,000 mcg Diphenhydramine HCl (Benadryl Injection -) 12.5 mg IVPUSH Q4H PRN PRN Reason: SHIVERING Doxazosin Mesylate (Cardura -) 4 mg PO DAILY [facility] Last Admin: 11/29/17 09:55 Dose: 4 mg Heparin Sodium (Porcine) (Heparin -) 5,000 unit SQ TID [facility] Last Admin: 11/29/17 06:10 Dose: 5,000 unit Hydralazine HCl (Apresoline -) 50 mg PO DAILY [facility] Last Admin: 11/29/17 09:55 Dose: 50 mg Piperacillin Sod/Tazobactam (Sod 2.25 gm/ Dextrose) 50 mls @ 100 mls/hr IVPB Q8H-IV SHANEL PRN Reason: Protocol Last Admin: 11/29/17 09:54 Dose: Not Given Sodium Bicarbonate 75 meq/ (Sodium Chloride) 1,075 mls @ 83 mls/hr IV Q13H [facility] Last Admin: 11/29/17 06:13 Dose: Not Given Insulin Aspart (Novolog Vial Sliding Scale -) 0 vial SQ ACHS SHANEL PRN Reason: Protocol Last Admin: 11/29/17 11:47 Dose: 4 unit Insulin Detemir (Levemir Vial) 15 units SQ HS [facility] Last Admin: 11/28/17 21:43 Dose: 15 units Multivitamins/Minerals/Vitamin C (Tab-A-Vit -) 1 tab PO DAILY [facility] Last Admin: 11/29/17 09:55 Dose: 1 tab Ondansetron HCl (Zofran Injection) 4 mg IVPUSH Q6H PRN PRN Reason: NAUSEA Oxycodone HCl (Roxicodone -) 5 mg PO Q6H PRN PRN Reason: PAIN LEVEL 6-10 Sodium Bicarbonate (Sodium Bicarbonate -) 1,300 mg PO BID SHANEL Last Admin: 11/29/17 09:55 Dose: 1,300 mg - Objective Vital Signs: Vital Signs Temperature 98.2 F 11/28/17 17:20 Pulse Rate 89 11/28/17 17:20 Respiratory Rate 20 11/28/17 17:20 Blood Pressure 120/91 11/28/17 17:20 O2 Sat by Pulse Oximetry (%) 100 11/28/17 21:00 Constitutional: Yes: No Distress, Calm Cardiovascular: Yes: Regular Rate and Rhythm Respiratory: Yes: Regular Gastrointestinal: Yes: Normal Bowel Sounds, Soft Genitourinary: Yes: Other (urostomy) Neurological: Yes: Alert, Oriented Labs: CBC, BMP 11/29/17 07:00 11/29/17 07:00 INR, PTT INR 1.12 (0.82-1.09) 11/26/17 09:00 Microbiology 11/26/17 09:20 Urine - Urostomy Bag Urine Culture - Final Escherichia Coli Escherichia Coli#2 Providencia Rettgeri Enterococcus Faecalis Enterococcus Avium 11/26/17 09:00 Blood - Peripheral Venous Blood Culture - Preliminary NO GROWTH OBTAINED AFTER 72 HOURS, INCUBATION TO CONTINUE FOR 2 DAYS. 11/26/17 09:00 Blood - Peripheral Venous Blood Culture - Preliminary NO GROWTH OBTAINED AFTER 72 HOURS, INCUBATION TO CONTINUE FOR 2 DAYS. Problem List - Problems (1) Urinary tract infection Code(s): N39.0 - URINARY TRACT INFECTION, SITE NOT SPECIFIED Qualifiers: Urinary tract infection type: site unspecified Hematuria presence: with hematuria Qualified Code(s): N39.0 - Urinary tract infection, site not specified; R31.9 - Hematuria, unspecified; R31.9 - Hematuria, unspecified (2) ARF (acute renal failure) Code(s): N17.9 - ACUTE KIDNEY FAILURE, UNSPECIFIED Qualifiers: Acute renal failure type: unspecified Qualified Code(s): N17.9 - Acute kidney failure, unspecified (3) Anemia Code(s): D64.9 - ANEMIA, UNSPECIFIED (4) Bladder cancer Code(s): C67.9 - MALIGNANT NEOPLASM OF BLADDER, UNSPECIFIED (5) CVA (cerebral vascular accident) Code(s): I63.9 - CEREBRAL INFARCTION, UNSPECIFIED (6) Chronic kidney disease Code(s): N18.9 - CHRONIC KIDNEY DISEASE, UNSPECIFIED Qualifiers: Chronic kidney disease stage: stage 4 (severe) Qualified Code(s): N18.4 - Chronic kidney disease, stage 4 (severe) (7) Diabetes Code(s): E11.9 - TYPE 2 DIABETES MELLITUS WITHOUT COMPLICATIONS Qualifiers: Diabetes mellitus type: type 2 Diabetes mellitus marble carver insulin use: with marble carver use Diabetes mellitus complication status: with kidney complications Diabetes mellitus complication detail: with chronic kidney disease Chronic kidney disease stage: stage 4 (severe) Qualified Code(s): E11.22 - Type 2 diabetes mellitus with diabetic chronic kidney disease; N18.4 - Chronic kidney disease, stage 4 (severe); N18.4 - Chronic kidney disease, stage 4 (severe); N18.4 - Chronic kidney disease, stage 4 (severe); N18.4 - Chronic kidney disease, stage 4 (severe); Z79.4 - management developer (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 of insulin; Z79.4 - senior care (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 of insulin; Z79.4 - management developer (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 of insulin; Z79.4 - management developer (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 of insulin (8) H/O total cystectomy Code(s): Z98.89 - OTHER SPECIFIED POSTPROCEDURAL STATES * DO NOT USE * (9) Hypertension Code(s): I10 - ESSENTIAL (PRIMARY) HYPERTENSION Qualifiers: Hypertension type: essential hypertension Qualified Code(s): I10 - Essential (primary) hypertension (10) Leukocytosis Code(s): D72.829 - ELEVATED WHITE BLOOD CELL COUNT, UNSPECIFIED Qualifiers: Leukocytosis type: bandemia Qualified Code(s): D72.825 - Bandemia Assessment/Plan Polymicrobial UTI Bladder CA s/p cystectomy DM HTN Loose stools - r/o c. diff -- repeat urine culture, stool c.diff ordered -- urine culture results noted -- continue Zosyn for now
--- NOTE | 2017-11-29 14:37 | PN ---
Progress Note, Physician Chief Complaint: 66 y/ male well known to me admitted with fever shaking chills. The patient seen in his room. Reports feeling much better. History of Present Illness: 66 year old gentleman with PMhx of Urethral Diversion, CKD Stage 4, COPD, Hypertension, DM, Hyperlipidemia Presented to the ED with complaints of shaking chills and found to have Cr of 2.9. - Current Medication List Current Medications: Active Medications Acetaminophen (Tylenol -) 650 mg PO Q4H PRN PRN Reason: PAIN LEVEL 1-5 Atorvastatin Calcium (Lipitor -) 10 mg PO HS [facility] Last Admin: 11/28/17 21:42 Dose: 10 mg Cholecalciferol (Vitamin D3 -) 1,000 unit PO DAILY [facility] Last Admin: 11/29/17 09:55 Dose: 1,000 unit Cyanocobalamin (Vitamin B12 -) 1,000 mcg PO DAILY [facility] Last Admin: 11/29/17 09:55 Dose: 1,000 mcg Diphenhydramine HCl (Benadryl Injection -) 12.5 mg IVPUSH Q4H PRN PRN Reason: SHIVERING Doxazosin Mesylate (Cardura -) 4 mg PO DAILY [facility] Last Admin: 11/29/17 09:55 Dose: 4 mg Heparin Sodium (Porcine) (Heparin -) 5,000 unit SQ TID [facility] Last Admin: 11/29/17 14:00 Dose: 5,000 unit Hydralazine HCl (Apresoline -) 50 mg PO DAILY [facility] Last Admin: 11/29/17 09:55 Dose: 50 mg Piperacillin Sod/Tazobactam (Sod 2.25 gm/ Dextrose) 50 mls @ 100 mls/hr IVPB Q8H-IV [facility] PRN Reason: Protocol Last Admin: 11/29/17 09:54 Dose: Not Given Sodium Bicarbonate 75 meq/ (Sodium Chloride) 1,075 mls @ 83 mls/hr IV Q13H [facility] Last Admin: 11/29/17 06:13 Dose: Not Given Insulin Aspart (Novolog Vial Sliding Scale -) 0 vial SQ ACHS [facility] PRN Reason: Protocol Last Admin: 11/29/17 11:47 Dose: 4 unit Insulin Detemir (Levemir Vial) 15 units SQ HS [facility] Last Admin: 11/28/17 21:43 Dose: 15 units Multivitamins/Minerals/Vitamin C (Tab-A-Vit -) 1 tab PO DAILY [facility] Last Admin: 11/29/17 09:55 Dose: 1 tab Ondansetron HCl (Zofran Injection) 4 mg IVPUSH Q6H PRN PRN Reason: NAUSEA Oxycodone HCl (Roxicodone -) 5 mg PO Q6H PRN PRN Reason: PAIN LEVEL 6-10 Sodium Bicarbonate (Sodium Bicarbonate -) 1,300 mg PO BID [facility] Last Admin: 11/29/17 09:55 Dose: 1,300 mg - Objective Vital Signs: Vital Signs Temperature 98.2 F 11/28/17 17:20 Pulse Rate 89 11/28/17 17:20 Respiratory Rate 20 11/28/17 17:20 Blood Pressure 120/91 11/28/17 17:20 O2 Sat by Pulse Oximetry (%) 100 11/28/17 21:00 Constitutional: Yes: Well Nourished, Calm Eyes: Yes: Conjunctiva Clear Cardiovascular: Yes: S1, S2 Respiratory: Yes: CTA Bilaterally, Diminished Gastrointestinal: Yes: Normal Bowel Sounds, Other (urinary diversion bag in place.) Genitourinary: No: CVA Tenderness - Left, CVA Tenderness - Right Edema: Yes Edema: LLE: 2+ (chronic), RLE: 2+ (chronic) Labs: CBC, BMP 11/29/17 07:00 11/29/17 07:00 INR, PTT INR 1.12 (0.82-1.09) 11/26/17 09:00 Problem List - Problems (1) Urinary tract infection Code(s): N39.0 - URINARY TRACT INFECTION, SITE NOT SPECIFIED Qualifiers: Urinary tract infection type: site unspecified Hematuria presence: with hematuria Qualified Code(s): N39.0 - Urinary tract infection, site not specified; R31.9 - Hematuria, unspecified; R31.9 - Hematuria, unspecified (2) ARF (acute renal failure) Code(s): N17.9 - ACUTE KIDNEY FAILURE, UNSPECIFIED Qualifiers: Acute renal failure type: unspecified Qualified Code(s): N17.9 - Acute kidney failure, unspecified (3) Anemia Code(s): D64.9 - ANEMIA, UNSPECIFIED (4) Bladder cancer Code(s): C67.9 - MALIGNANT NEOPLASM OF BLADDER, UNSPECIFIED (5) CVA (cerebral vascular accident) Code(s): I63.9 - CEREBRAL INFARCTION, UNSPECIFIED (6) Chronic kidney disease Code(s): N18.9 - CHRONIC KIDNEY DISEASE, UNSPECIFIED Qualifiers: Chronic kidney disease stage: stage 4 (severe) Qualified Code(s): N18.4 - Chronic kidney disease, stage 4 (severe) (7) Hypertension Code(s): I10 - ESSENTIAL (PRIMARY) HYPERTENSION Qualifiers: Hypertension type: essential hypertension Qualified Code(s): I10 - Essential (primary) hypertension (8) Metabolic acidosis Code(s): E87.2 - ACIDOSIS (9) Obesity Code(s): E66.9 - OBESITY, UNSPECIFIED Qualifiers: Obesity type: due to excess calories Obesity classification: unspecified obesity classification Serious obesity comorbidity presence: unspecified whether serious comorbidity present Qualified Code(s): E66.09 - Other obesity due to excess calories (10) Sepsis Code(s): A41.9 - SEPSIS, UNSPECIFIED ORGANISM Assessment/Plan 66 year old gentleman with PMhx of Urethral Diversion, CKD Stage 4, COPD, Hypertension, DM, Hyperlipidemia Presented with complaints of tremors and shaking and found to have Cr of 2.9 and Bicarb of 13. CKD Stage 4.. Azotemia stable. Non-anion gap metabolic acidosis with Respiratory compensation. Improving with IV Bicarbonate supplements. Shaking chills. Leukocytosis . Possible urinary infection Plan: Continue IVF for now. D/C IV Bicarb. Continue oral bicarb. Continue Abx as per ID Will monitor the Renal/ Electrolyte profile with you. Thank you. Mariangel Kirkland MD
[2017-11-29] MEDS ORDERED: INSULIN (NOVOLOG) ASPART 100 UNITS/ML 10ML VIAL ONE ×2 (17:23→20:40)
[2017-11-29] MEDS: SODIUM CHLORIDE 0.45% 1,000 ML IV SCH (17:26)
[2017-11-29] MEDS: ATORVASTATIN CA 10 MG TABLET (FP) PO SCH (21:20)
[2017-11-29] MEDS: INSULIN (LEVEMIR) 100 UNITS/ML UNITS SQ SCH (21:36)
[2017-11-30] MEDS: PIPERACILLIN/TAZOB 2.25 GM 2.25 GM in DEXTROSE 5%-WATER - 50 ML IVPB SCH ×4 (02:00→17:06)
[2017-11-30] MEDS: HEPARIN NA (PORCINE) 5,000 UNITS/ML 1ML VIAL SQ SCH ×3 (06:22→21:33)
[2017-11-30] MEDS: INSULIN SLIDING SCALE (NOVOLOG) 1 VIAL SQ SCH ×4 (06:25→21:30)
[2017-11-30 07:55] LABS: CHLORIDE 117 mmol/L (98-107); POTASSIUM 4.9 mmol/L (3.5-5.1); SODIUM 143 mmol/L (136-145)
[2017-11-30 08:03] LABS: ALBUMIN 2.8 g/dl (3.4-5.0); ALK PHOS 59 U/L (45-117); ANION GAP 7 (8-16); BILIRUBIN,TOTAL 0.5 mg/dL (0.2-1.0); BLOOD UREA NITROGEN 44 mg/dL (7-18); CALCIUM 8.8 mg/dL (8.5-10.1); CO2 19 mmol/L (21-32); CREATININE 2.6 mg/dL (0.7-1.3); GLUCOSE,RANDOM 193 mg/dL (74-106); SGOT/AST 36 U/L (15-37); SGPT/ALT 51 U/L (12-78); TOT PROT 6.4 g/dl (6.4-8.2)
[2017-11-30] MEDS ORDERED: PT OWN MED DRAWER 7, Y5N ONE (09:47)
[2017-11-30] MEDS: DOXAZOSIN MESYLATE 4 MG TABLET PO SCH (09:51)
[2017-11-30] MEDS: SODIUM BICARBONATE 650 MG TABLET PO SCH ×2 (09:51→21:26)
[2017-11-30] MEDS: MULTIVITAMINS (DAILY MVI) TABLET (FP) PO SCH (09:51)
[2017-11-30] MEDS: CHOLECALCIFEROL (VITAMIN D3) 1,000 UNIT TABLET (FP) PO SCH (09:51)
[2017-11-30] MEDS: hydrALAZINE HCL 50 MG TABLET (FP) PO SCH (09:51)
[2017-11-30] MEDS: CYANOCOBALAMIN 1,000 MCG TABLET (FP) PO SCH (09:51)
[2017-11-30] MEDS ORDERED: TRIPLE LUMEN FLUSH 4 ML ML IVPUSH PRN (10:49)
--- NOTE | 2017-11-30 11:33 | PN ---
Progress Note, Physician Chief Complaint: Mr Isaacs is developing shivers again, not as severe as last week. Denies cp, sob, n/v. - Current Medication List Current Medications: Active Medications Acetaminophen (Tylenol -) 650 mg PO Q4H PRN PRN Reason: PAIN LEVEL 1-5 Atorvastatin Calcium (Lipitor -) 10 mg PO HS [facility] Last Admin: 11/29/17 21:20 Dose: 10 mg Cholecalciferol (Vitamin D3 -) 1,000 unit PO DAILY [facility] Last Admin: 11/30/17 09:51 Dose: 1,000 unit Cyanocobalamin (Vitamin B12 -) 1,000 mcg PO DAILY [facility] Last Admin: 11/30/17 09:51 Dose: 1,000 mcg Diphenhydramine HCl (Benadryl Injection -) 12.5 mg IVPUSH Q4H PRN PRN Reason: SHIVERING Doxazosin Mesylate (Cardura -) 4 mg PO DAILY [facility] Last Admin: 11/30/17 09:51 Dose: 4 mg Heparin Sodium (Porcine) (Heparin -) 5,000 unit SQ TID [facility] Last Admin: 11/30/17 06:22 Dose: 5,000 unit Hydralazine HCl (Apresoline -) 50 mg PO DAILY [facility] Last Admin: 11/30/17 09:51 Dose: 50 mg IV Flush (Triple Lumen Flush) 4 ml IVPUSH PRN PRN PRN Reason: Protocol Piperacillin Sod/Tazobactam (Sod 2.25 gm/ Dextrose) 50 mls @ 100 mls/hr IVPB Q8H-IV [facility] PRN Reason: Protocol Last Admin: 11/30/17 09:51 Dose: Not Given Sodium Chloride (1/2 Normal Saline) 1,000 mls @ 75 mls/hr IV ASDIR [facility] Last Admin: 11/29/17 17:26 Dose: Not Given Insulin Aspart (Novolog Vial Sliding Scale -) 0 vial SQ ACHS [facility] PRN Reason: Protocol Last Admin: 11/30/17 06:25 Dose: 4 unit Insulin Detemir (Levemir Vial) 15 units SQ Q12H [facility] Multivitamins/Minerals/Vitamin C (Tab-A-Vit -) 1 tab PO DAILY [facility] Last Admin: 11/30/17 09:51 Dose: 1 tab Ondansetron HCl (Zofran Injection) 4 mg IVPUSH Q6H PRN PRN Reason: NAUSEA Oxycodone HCl (Roxicodone -) 5 mg PO Q6H PRN PRN Reason: PAIN LEVEL 6-10 Sodium Bicarbonate (Sodium Bicarbonate -) 1,300 mg PO BID [facility] Last Admin: 11/30/17 09:51 Dose: 1,300 mg - Objective Vital Signs: Vital Signs Temperature 36.8 C 11/30/17 06:00 Pulse Rate 76 11/30/17 06:00 Respiratory Rate 20 11/30/17 06:00 Blood Pressure 162/98 11/30/17 06:00 O2 Sat by Pulse Oximetry (%) 97 11/29/17 21:00 Constitutional: Yes: No Distress, Calm, Obese Cardiovascular: Yes: Regular Rate and Rhythm. No: Gallop, Murmur, Rub Respiratory: Yes: Regular, CTA Bilaterally. No: Rales, Rhonchi, Wheezes Gastrointestinal: Yes: Normal Bowel Sounds, Soft. No: Distention, Tenderness Extremities: Yes: WNL Edema: No Labs: CBC, BMP 11/29/17 07:00 11/30/17 05:35 INR, PTT INR 1.12 (0.82-1.09) 11/26/17 09:00 Problem List - Problems (1) Urinary tract infection Code(s): N39.0 - URINARY TRACT INFECTION, SITE NOT SPECIFIED Qualifiers: Urinary tract infection type: site unspecified Hematuria presence: with hematuria Qualified Code(s): N39.0 - Urinary tract infection, site not specified; R31.9 - Hematuria, unspecified; R31.9 - Hematuria, unspecified (2) Sepsis Code(s): A41.9 - SEPSIS, UNSPECIFIED ORGANISM (3) Metabolic acidosis Code(s): E87.2 - ACIDOSIS (4) Chronic kidney disease Code(s): N18.9 - CHRONIC KIDNEY DISEASE, UNSPECIFIED Qualifiers: Chronic kidney disease stage: stage 4 (severe) Qualified Code(s): N18.4 - Chronic kidney disease, stage 4 (severe) (5) Diabetes Code(s): E11.9 - TYPE 2 DIABETES MELLITUS WITHOUT COMPLICATIONS Qualifiers: Diabetes mellitus type: type 2 Diabetes mellitus correction insulin use: with manager long term care use Diabetes mellitus complication status: with kidney complications Diabetes mellitus complication detail: with chronic kidney disease Chronic kidney disease stage: stage 4 (severe) Qualified Code(s): E11.22 - Type 2 diabetes mellitus with diabetic chronic kidney disease; N18.4 - Chronic kidney disease, stage 4 (severe); N18.4 - Chronic kidney disease, stage 4 (severe); N18.4 - Chronic kidney disease, stage 4 (severe); N18.4 - Chronic kidney disease, stage 4 (severe); Z79.4 - FPC (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 of insulin; Z79.4 - manager long term care (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 of insulin; Z79.4 - FPC (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 of insulin; Z79.4 - manager long term care (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 of insulin (6) HLD (hyperlipidemia) Code(s): E78.5 - HYPERLIPIDEMIA, UNSPECIFIED (7) Hypertension Code(s): I10 - ESSENTIAL (PRIMARY) HYPERTENSION Qualifiers: Hypertension type: essential hypertension Qualified Code(s): I10 - Essential (primary) hypertension Assessment/Plan (1) Urinary tract infection Assessment/Plan: -urine cultures resulted, with 5 different organisms -repeat urine culture ordered -case d/w ID, will need at least 7 days of IV antibiotics -patient has not received zosyn since Thursday morning secondary to no access -placed order for central line so patient can receive antibiotics and continue treatment Code(s): N39.0 - URINARY TRACT INFECTION, SITE NOT SPECIFIED Qualifiers: Urinary tract infection type: site unspecified Hematuria presence: with hematuria Qualified Code(s): N39.0 - Urinary tract infection, site not specified; R31.9 - Hematuria, unspecified; R31.9 - Hematuria, unspecified (2) Sepsis Assessment/Plan: -secondary to UTI -recurring since off of zosyn since Thursday -as above -continue IVF per nephrology recommendations Code(s): A41.9 - SEPSIS, UNSPECIFIED ORGANISM (3) Metabolic acidosis Assessment/Plan: -acute on chronic -at baseline -continue oral bicarb Code(s): E87.2 - ACIDOSIS (4) Chronic kidney disease Assessment/Plan: -stable -hold lasix and gentle hydration Code(s): N18.9 - CHRONIC KIDNEY DISEASE, UNSPECIFIED Qualifiers: Chronic kidney disease stage: stage 4 (severe) Qualified Code(s): N18.4 - Chronic kidney disease, stage 4 (severe) (5) Diabetes Assessment/Plan: -diabetic diet -change levemir to bid since elevated -FSBS and SSI Code(s): E11.9 - TYPE 2 DIABETES MELLITUS WITHOUT COMPLICATIONS Qualifiers: Diabetes mellitus type: type 2 Diabetes mellitus manager long term care insulin use: with manager long term care use Diabetes mellitus complication status: with kidney complications Diabetes mellitus complication detail: with chronic kidney disease Chronic kidney disease stage: stage 4 (severe) Qualified Code(s): E11.22 - Type 2 diabetes mellitus with diabetic chronic kidney disease; N18.4 - Chronic kidney disease, stage 4 (severe); N18.4 - Chronic kidney disease, stage 4 (severe); N18.4 - Chronic kidney disease, stage 4 (severe); N18.4 - Chronic kidney disease, stage 4 (severe); Z79.4 - manager long term care (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 of insulin; Z79.4 - FPC (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 of insulin; Z79.4 - FPC (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 of insulin; Z79.4 - FPC (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 of insulin (6) HLD (hyperlipidemia) Assessment/Plan: -continue lipitor Code(s): E78.5 - HYPERLIPIDEMIA, UNSPECIFIED (7) Hypertension Assessment/Plan: -continue cardura and hydralazine -elevated this am, but has not received above medications -monitor Code(s): I10 - ESSENTIAL (PRIMARY) HYPERTENSION Qualifiers: Hypertension type: essential hypertension Qualified Code(s): I10 - Essential (primary) hypertension
[2017-11-30] MEDS: INSULIN (LEVEMIR) 100 UNITS/ML UNITS SQ SCH ×2 (12:12→21:29)
--- NOTE | 2017-11-30 12:46 | PN ---
Progress Note, Physician History of Present Illness: patient with shivers this morning now feels better patient has missed abx for 2 days - Current Medication List Current Medications: Active Medications Acetaminophen (Tylenol -) 650 mg PO Q4H PRN PRN Reason: PAIN LEVEL 1-5 Atorvastatin Calcium (Lipitor -) 10 mg PO HS [facility] Last Admin: 11/29/17 21:20 Dose: 10 mg Cholecalciferol (Vitamin D3 -) 1,000 unit PO DAILY [facility] Last Admin: 11/30/17 09:51 Dose: 1,000 unit Cyanocobalamin (Vitamin B12 -) 1,000 mcg PO DAILY [facility] Last Admin: 11/30/17 09:51 Dose: 1,000 mcg Diphenhydramine HCl (Benadryl Injection -) 12.5 mg IVPUSH Q4H PRN PRN Reason: SHIVERING Doxazosin Mesylate (Cardura -) 4 mg PO DAILY [facility] Last Admin: 11/30/17 09:51 Dose: 4 mg Heparin Sodium (Porcine) (Heparin -) 5,000 unit SQ TID [facility] Last Admin: 11/30/17 06:22 Dose: 5,000 unit Hydralazine HCl (Apresoline -) 50 mg PO DAILY [facility] Last Admin: 11/30/17 09:51 Dose: 50 mg IV Flush (Triple Lumen Flush) 4 ml IVPUSH PRN PRN PRN Reason: Protocol Piperacillin Sod/Tazobactam (Sod 2.25 gm/ Dextrose) 50 mls @ 100 mls/hr IVPB Q8H-IV [facility] PRN Reason: Protocol Last Admin: 11/30/17 09:51 Dose: Not Given Sodium Chloride (1/2 Normal Saline) 1,000 mls @ 75 mls/hr IV ASDIR [facility] Last Admin: 11/29/17 17:26 Dose: Not Given Insulin Aspart (Novolog Vial Sliding Scale -) 0 vial SQ ACHS [facility] PRN Reason: Protocol Last Admin: 11/30/17 12:12 Dose: 4 unit Insulin Detemir (Levemir Vial) 15 units SQ BID@0700,2200 [facility] Last Admin: 11/30/17 12:12 Dose: 15 units Multivitamins/Minerals/Vitamin C (Tab-A-Vit -) 1 tab PO DAILY [facility] Last Admin: 11/30/17 09:51 Dose: 1 tab Ondansetron HCl (Zofran Injection) 4 mg IVPUSH Q6H PRN PRN Reason: NAUSEA Oxycodone HCl (Roxicodone -) 5 mg PO Q6H PRN PRN Reason: PAIN LEVEL 6-10 Sodium Bicarbonate (Sodium Bicarbonate -) 1,300 mg PO BID [facility] Last Admin: 11/30/17 09:51 Dose: 1,300 mg - Objective Vital Signs: Vital Signs Temperature 98.3 F 11/30/17 06:00 Pulse Rate 76 11/30/17 06:00 Respiratory Rate 20 11/30/17 06:00 Blood Pressure 162/98 11/30/17 06:00 O2 Sat by Pulse Oximetry (%) 97 11/29/17 21:00 Constitutional: Yes: No Distress, Calm, Obese Cardiovascular: Yes: Regular Rate and Rhythm Respiratory: Yes: Regular, CTA Bilaterally Gastrointestinal: Yes: Normal Bowel Sounds, Soft, Other (urostomy in place) Musculoskeletal: Yes: WNL Extremities: Yes: WNL Neurological: Yes: Alert, Oriented Psychiatric: Yes: Alert, Oriented Labs: CBC, BMP 11/29/17 07:00 11/30/17 05:35 INR, PTT INR 1.12 (0.82-1.09) 11/26/17 09:00 Assessment/Plan Problem List - Problems (1) Urinary tract infection Code(s): N39.0 - URINARY TRACT INFECTION, SITE NOT SPECIFIED Qualifiers: Urinary tract infection type: site unspecified Hematuria presence: with hematuria Qualified Code(s): N39.0 - Urinary tract infection, site not specified; R31.9 - Hematuria, unspecified; R31.9 - Hematuria, unspecified (2) ARF (acute renal failure) Code(s): N17.9 - ACUTE KIDNEY FAILURE, UNSPECIFIED Qualifiers: Acute renal failure type: unspecified Qualified Code(s): N17.9 - Acute kidney failure, unspecified (3) Anemia Code(s): D64.9 - ANEMIA, UNSPECIFIED (4) Bladder cancer Code(s): C67.9 - MALIGNANT NEOPLASM OF BLADDER, UNSPECIFIED (5) CVA (cerebral vascular accident) Code(s): I63.9 - CEREBRAL INFARCTION, UNSPECIFIED (6) Chronic kidney disease Code(s): N18.9 - CHRONIC KIDNEY DISEASE, UNSPECIFIED Qualifiers: Chronic kidney disease stage: stage 4 (severe) Qualified Code(s): N18.4 - Chronic kidney disease, stage 4 (severe) (7) Diabetes Code(s): E11.9 - TYPE 2 DIABETES MELLITUS WITHOUT COMPLICATIONS Qualifiers: Diabetes mellitus type: type 2 Diabetes mellitus terminal supervisor insulin use: with snf use Diabetes mellitus complication status: with kidney complications Diabetes mellitus complication detail: with chronic kidney disease Chronic kidney disease stage: stage 4 (severe) Qualified Code(s): E11.22 - Type 2 diabetes mellitus with diabetic chronic kidney disease; N18.4 - Chronic kidney disease, stage 4 (severe); N18.4 - Chronic kidney disease, stage 4 (severe); N18.4 - Chronic kidney disease, stage 4 (severe); N18.4 - Chronic kidney disease, stage 4 (severe); Z79.4 - termination clerk (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 of insulin; Z79.4 - USP (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 of insulin; Z79.4 - termination clerk (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 of insulin; Z79.4 - USP (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 of insulin (8) H/O total cystectomy Code(s): Z98.89 - OTHER SPECIFIED POSTPROCEDURAL STATES * DO NOT USE * (9) Hypertension Code(s): I10 - ESSENTIAL (PRIMARY) HYPERTENSION Qualifiers: Hypertension type: essential hypertension Qualified Code(s): I10 - Essential (primary) hypertension (10) Leukocytosis Code(s): D72.829 - ELEVATED WHITE BLOOD CELL COUNT, UNSPECIFIED Qualifiers: Leukocytosis type: bandemia Qualified Code(s): D72.825 - Bandemia patient has missed 2 days of iv abx patient can ill afford to miss abx as he has a urostomy bag and his urine is grossly infected plan continue iv abx continue current mgmt watch for fevers rest as per the team
[2017-11-30] MEDS ORDERED: PIPERACILLIN/TAZOBACTAM 2.25 GM VIAL IVPB ONE ×3 (12:49→23:49)
[2017-11-30] MEDS ORDERED: DEXTROSE 5%-WATER - 50 ML IVPB ONE ×3 (12:50→23:49)
[2017-11-30] MEDS: SODIUM CHLORIDE 0.45% 1,000 ML IV SCH ×2 (13:03→16:54)
--- NOTE | 2017-11-30 13:12 | PN ---
Progress Note (short form) - Note Progress Note: Right hand 22 gauge IV inserted, using the vein finder. Blood aspirated and flushed ok with 15cc NS. The line was secured with tegaderm.
[2017-11-30 16:22] LABS: HEMATOCRIT 32.6 % (35.4-49); HEMOGLOBIN 10.9 GM/dL (11.7-16.9); MCH 27.3 pg (25.7-33.7); MCHC 33.4 g/dl (32.0-35.9); MEAN CELL VOLUME 81.8 fl (80-96); MEAN PLT VOLUME 8.3 fl (7.5-11.1); PLATELET COUNT 280 K/MM3 (134-434); RBC 3.98 M/mm3 (4.00-5.60); RDW 14.6 % (11.9-15.9); WHITE BLOOD COUNT 7.3 K/mm3 (4.0-10.0)
[2017-11-30] MEDS ORDERED: INSULIN (NOVOLOG) ASPART 100 UNITS/ML 10ML VIAL ONE (16:39)
[2017-11-30 20:59] LABS: PLATELET ESTIMATE ADEQUATE
[2017-11-30] MEDS: ATORVASTATIN CA 10 MG TABLET (FP) PO SCH (21:26)
[2017-12-01] MEDS: PIPERACILLIN/TAZOB 2.25 GM 2.25 GM in DEXTROSE 5%-WATER - 50 ML IVPB SCH ×3 (02:28→18:17)
[2017-12-01] MEDS: SODIUM CHLORIDE 0.45% 1,000 ML IV SCH ×3 (03:11→22:10)
[2017-12-01] MEDS: HEPARIN NA (PORCINE) 5,000 UNITS/ML 1ML VIAL SQ SCH ×3 (06:00→22:12)
[2017-12-01] MEDS: INSULIN SLIDING SCALE (NOVOLOG) 1 VIAL SQ SCH ×4 (06:03→22:10)
[2017-12-01] MEDS: INSULIN (LEVEMIR) 100 UNITS/ML UNITS SQ SCH ×2 (06:03→22:11)
[2017-12-01 08:10] LABS: HEMATOCRIT 34.5 % (35.4-49); HEMOGLOBIN 11.6 GM/dL (11.7-16.9); MCH 27.7 pg (25.7-33.7); MCHC 33.7 g/dl (32.0-35.9); MEAN CELL VOLUME 82.3 fl (80-96); MEAN PLT VOLUME 8.1 fl (7.5-11.1); PLATELET COUNT 266 K/MM3 (134-434); WHITE BLOOD COUNT 8.6 K/mm3 (4.0-10.0)
[2017-12-01 08:57] LABS: ANION GAP 14 (8-16); BLOOD UREA NITROGEN 36 mg/dL (7-18); CALCIUM 9.1 mg/dL (8.5-10.1); CHLORIDE 110 mmol/L (98-107); CO2 16 mmol/L (21-32); GLUCOSE,RANDOM 159 mg/dL (74-106); MAGNESIUM 2.3 mg/dL (1.8-2.4); POTASSIUM 4.9 mmol/L (3.5-5.1); SODIUM 140 mmol/L (136-145)
[2017-12-01 09:00] LABS: CREATININE 2.4 mg/dL (0.7-1.3); PHOSPHOROUS 3.7 mg/dL (2.5-4.9)
[2017-12-01] MEDS ORDERED: PT OWN MED DRAWER 7, Y5N ONE (10:40)
[2017-12-01] MEDS ORDERED: DEXTROSE 5%-WATER - 50 ML IVPB ONE ×2 (10:40→17:03)
[2017-12-01] MEDS ORDERED: PIPERACILLIN/TAZOBACTAM 2.25 GM VIAL IVPB ONE ×2 (10:40→17:03)
[2017-12-01] MEDS: SODIUM BICARBONATE 650 MG TABLET PO SCH ×3 (10:50→22:13)
[2017-12-01] MEDS: MULTIVITAMINS (DAILY MVI) TABLET (FP) PO SCH (10:50)
[2017-12-01] MEDS: DOXAZOSIN MESYLATE 4 MG TABLET PO SCH (10:50)
[2017-12-01] MEDS: CYANOCOBALAMIN 1,000 MCG TABLET (FP) PO SCH (10:50)
[2017-12-01] MEDS: CHOLECALCIFEROL (VITAMIN D3) 1,000 UNIT TABLET (FP) PO SCH (10:50)
[2017-12-01] MEDS: hydrALAZINE HCL 50 MG TABLET (FP) PO SCH (10:50)
[2017-12-01 11:24] LABS: PLATELET ESTIMATE NORMAL
[2017-12-01] MEDS ORDERED: INSULIN (NOVOLOG) ASPART 100 UNITS/ML 10ML VIAL ONE ×2 (12:15→17:03)
--- NOTE | 2017-12-01 12:24 | PN ---
Progress Note, Physician History of Present Illness: stable was shaking but less - Current Medication List Current Medications: Active Medications Acetaminophen (Tylenol -) 650 mg PO Q4H PRN PRN Reason: PAIN LEVEL 1-5 Atorvastatin Calcium (Lipitor -) 10 mg PO HS [facility] Last Admin: 11/30/17 21:26 Dose: 10 mg Cholecalciferol (Vitamin D3 -) 1,000 unit PO DAILY [facility] Last Admin: 12/01/17 10:50 Dose: 1,000 unit Cyanocobalamin (Vitamin B12 -) 1,000 mcg PO DAILY [facility] Last Admin: 12/01/17 10:50 Dose: 1,000 mcg Diphenhydramine HCl (Benadryl Injection -) 12.5 mg IVPUSH Q4H PRN PRN Reason: SHIVERING Doxazosin Mesylate (Cardura -) 4 mg PO DAILY [facility] Last Admin: 12/01/17 10:50 Dose: 4 mg Heparin Sodium (Porcine) (Heparin -) 5,000 unit SQ TID [facility] Last Admin: 12/01/17 06:00 Dose: 5,000 unit Hydralazine HCl (Apresoline -) 50 mg PO DAILY [facility] Last Admin: 12/01/17 10:50 Dose: 50 mg IV Flush (Triple Lumen Flush) 4 ml IVPUSH PRN PRN PRN Reason: Protocol Piperacillin Sod/Tazobactam (Sod 2.25 gm/ Dextrose) 50 mls @ 100 mls/hr IVPB Q8H-IV [facility] PRN Reason: Protocol Last Admin: 12/01/17 10:49 Dose: 100 mls/hr Sodium Chloride (1/2 Normal Saline) 1,000 mls @ 75 mls/hr IV ASDIR [facility] Last Admin: 12/01/17 03:11 Dose: 75 mls/hr Insulin Aspart (Novolog Vial Sliding Scale -) 0 vial SQ ACHS [facility] PRN Reason: Protocol Last Admin: 12/01/17 06:03 Dose: 4 unit Insulin Detemir (Levemir Vial) 15 units SQ BID@0700,2200 [facility] Last Admin: 12/01/17 06:03 Dose: 15 units Multivitamins/Minerals/Vitamin C (Tab-A-Vit -) 1 tab PO DAILY [facility] Last Admin: 12/01/17 10:50 Dose: 1 tab Ondansetron HCl (Zofran Injection) 4 mg IVPUSH Q6H PRN PRN Reason: NAUSEA Oxycodone HCl (Roxicodone -) 5 mg PO Q6H PRN PRN Reason: PAIN LEVEL 6-10 Sodium Bicarbonate (Sodium Bicarbonate -) 1,300 mg PO TID [facility] - Objective Vital Signs: Vital Signs Temperature 98.5 F 12/01/17 05:00 Pulse Rate 71 12/01/17 05:00 Respiratory Rate 20 12/01/17 05:00 Blood Pressure 136/87 12/01/17 05:00 O2 Sat by Pulse Oximetry (%) 99 11/30/17 21:00 Constitutional: Yes: No Distress, Calm, Obese Cardiovascular: Yes: Regular Rate and Rhythm Respiratory: Yes: Regular, CTA Bilaterally Musculoskeletal: Yes: WNL Neurological: Yes: Alert, Oriented Psychiatric: Yes: Alert, Oriented Labs: CBC, BMP 12/01/17 07:41 12/01/17 07:41 INR, PTT INR 1.12 (0.82-1.09) 11/26/17 09:00 Assessment/Plan Problem List - Problems (1) Urinary tract infection Code(s): N39.0 - URINARY TRACT INFECTION, SITE NOT SPECIFIED Qualifiers: Urinary tract infection type: site unspecified Hematuria presence: with hematuria Qualified Code(s): N39.0 - Urinary tract infection, site not specified; R31.9 - Hematuria, unspecified; R31.9 - Hematuria, unspecified (2) ARF (acute renal failure) Code(s): N17.9 - ACUTE KIDNEY FAILURE, UNSPECIFIED Qualifiers: Acute renal failure type: unspecified Qualified Code(s): N17.9 - Acute kidney failure, unspecified (3) Anemia Code(s): D64.9 - ANEMIA, UNSPECIFIED (4) Bladder cancer Code(s): C67.9 - MALIGNANT NEOPLASM OF BLADDER, UNSPECIFIED (5) CVA (cerebral vascular accident) Code(s): I63.9 - CEREBRAL INFARCTION, UNSPECIFIED (6) Chronic kidney disease Code(s): N18.9 - CHRONIC KIDNEY DISEASE, UNSPECIFIED Qualifiers: Chronic kidney disease stage: stage 4 (severe) Qualified Code(s): N18.4 - Chronic kidney disease, stage 4 (severe) (7) Diabetes Code(s): E11.9 - TYPE 2 DIABETES MELLITUS WITHOUT COMPLICATIONS Qualifiers: Diabetes mellitus type: type 2 Diabetes mellitus construction operations manager insulin use: with construction operations manager use Diabetes mellitus complication status: with kidney complications Diabetes mellitus complication detail: with chronic kidney disease Chronic kidney disease stage: stage 4 (severe) Qualified Code(s): E11.22 - Type 2 diabetes mellitus with diabetic chronic kidney disease; N18.4 - Chronic kidney disease, stage 4 (severe); N18.4 - Chronic kidney disease, stage 4 (severe); N18.4 - Chronic kidney disease, stage 4 (severe); N18.4 - Chronic kidney disease, stage 4 (severe); Z79.4 - cutter gas (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 of insulin; Z79.4 - assisted (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 of insulin; Z79.4 - assisted (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 of insulin; Z79.4 - assisted (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 of insulin (8) H/O total cystectomy Code(s): Z98.89 - OTHER SPECIFIED POSTPROCEDURAL STATES * DO NOT USE * (9) Hypertension Code(s): I10 - ESSENTIAL (PRIMARY) HYPERTENSION Qualifiers: Hypertension type: essential hypertension Qualified Code(s): I10 - Essential (primary) hypertension (10) Leukocytosis Code(s): D72.829 - ELEVATED WHITE BLOOD CELL COUNT, UNSPECIFIED Qualifiers: Leukocytosis type: bandemia Qualified Code(s): D72.825 - Bandemia plan continue iv abx continue current mgmt watch for fevers rest as per the team
--- NOTE | 2017-12-01 12:49 | PN ---
Progress Note, Physician Chief Complaint: Mr Isaacs says his shivering is worse today, also complains of diarrhea. no cp , sob, n/v. - Current Medication List Current Medications: Active Medications Acetaminophen (Tylenol -) 650 mg PO Q4H PRN PRN Reason: PAIN LEVEL 1-5 Atorvastatin Calcium (Lipitor -) 10 mg PO HS [facility] Last Admin: 11/30/17 21:26 Dose: 10 mg Cholecalciferol (Vitamin D3 -) 1,000 unit PO DAILY [facility] Last Admin: 12/01/17 10:50 Dose: 1,000 unit Cyanocobalamin (Vitamin B12 -) 1,000 mcg PO DAILY [facility] Last Admin: 12/01/17 10:50 Dose: 1,000 mcg Diphenhydramine HCl (Benadryl Injection -) 12.5 mg IVPUSH Q4H PRN PRN Reason: SHIVERING Doxazosin Mesylate (Cardura -) 4 mg PO DAILY [facility] Last Admin: 12/01/17 10:50 Dose: 4 mg Heparin Sodium (Porcine) (Heparin -) 5,000 unit SQ TID [facility] Last Admin: 12/01/17 06:00 Dose: 5,000 unit Hydralazine HCl (Apresoline -) 50 mg PO DAILY [facility] Last Admin: 12/01/17 10:50 Dose: 50 mg IV Flush (Triple Lumen Flush) 4 ml IVPUSH PRN PRN PRN Reason: Protocol Piperacillin Sod/Tazobactam (Sod 2.25 gm/ Dextrose) 50 mls @ 100 mls/hr IVPB Q8H-IV SHANEL PRN Reason: Protocol Last Admin: 12/01/17 10:49 Dose: 100 mls/hr Sodium Chloride (1/2 Normal Saline) 1,000 mls @ 75 mls/hr IV ASDIR [facility] Last Admin: 12/01/17 03:11 Dose: 75 mls/hr Insulin Aspart (Novolog Vial Sliding Scale -) 0 vial SQ ACHS SHANEL PRN Reason: Protocol Last Admin: 12/01/17 12:33 Dose: 2 unit Insulin Detemir (Levemir Vial) 15 units SQ BID@0700,2200 [facility] Last Admin: 12/01/17 06:03 Dose: 15 units Multivitamins/Minerals/Vitamin C (Tab-A-Vit -) 1 tab PO DAILY [facility] Last Admin: 12/01/17 10:50 Dose: 1 tab Ondansetron HCl (Zofran Injection) 4 mg IVPUSH Q6H PRN PRN Reason: NAUSEA Oxycodone HCl (Roxicodone -) 5 mg PO Q6H PRN PRN Reason: PAIN LEVEL 6-10 Sodium Bicarbonate (Sodium Bicarbonate -) 1,300 mg PO TID [facility] - Objective Vital Signs: Vital Signs Temperature 36.9 C 12/01/17 05:00 Pulse Rate 71 12/01/17 05:00 Respiratory Rate 20 12/01/17 05:00 Blood Pressure 136/87 12/01/17 05:00 O2 Sat by Pulse Oximetry (%) 99 11/30/17 21:00 Constitutional: Yes: No Distress, Obese, Other (rigors) Cardiovascular: Yes: Regular Rate and Rhythm. No: Gallop, Murmur, Rub Respiratory: Yes: Regular, CTA Bilaterally. No: Rales, Rhonchi, Wheezes Gastrointestinal: Yes: Normal Bowel Sounds, Soft. No: Distention, Tenderness Extremities: Yes: WNL Edema: No Labs: CBC, BMP 12/01/17 07:41 12/01/17 07:41 INR, PTT INR 1.12 (0.82-1.09) 11/26/17 09:00 Problem List - Problems (1) Urinary tract infection Code(s): N39.0 - URINARY TRACT INFECTION, SITE NOT SPECIFIED Qualifiers: Urinary tract infection type: site unspecified Hematuria presence: with hematuria Qualified Code(s): N39.0 - Urinary tract infection, site not specified; R31.9 - Hematuria, unspecified; R31.9 - Hematuria, unspecified (2) Sepsis Code(s): A41.9 - SEPSIS, UNSPECIFIED ORGANISM (3) Metabolic acidosis Code(s): E87.2 - ACIDOSIS (4) Chronic kidney disease Code(s): N18.9 - CHRONIC KIDNEY DISEASE, UNSPECIFIED Qualifiers: Chronic kidney disease stage: stage 4 (severe) Qualified Code(s): N18.4 - Chronic kidney disease, stage 4 (severe) (5) Diabetes Code(s): E11.9 - TYPE 2 DIABETES MELLITUS WITHOUT COMPLICATIONS Qualifiers: Diabetes mellitus type: type 2 Diabetes mellitus ferry terminal agent insulin use: with ferry terminal agent use Diabetes mellitus complication status: with kidney complications Diabetes mellitus complication detail: with chronic kidney disease Chronic kidney disease stage: stage 4 (severe) Qualified Code(s): E11.22 - Type 2 diabetes mellitus with diabetic chronic kidney disease; N18.4 - Chronic kidney disease, stage 4 (severe); N18.4 - Chronic kidney disease, stage 4 (severe); N18.4 - Chronic kidney disease, stage 4 (severe); N18.4 - Chronic kidney disease, stage 4 (severe); Z79.4 - long-term (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 of insulin; 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; 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; Z79.4 - long-term (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 of insulin (6) HLD (hyperlipidemia) Code(s): E78.5 - HYPERLIPIDEMIA, UNSPECIFIED (7) Hypertension Code(s): I10 - ESSENTIAL (PRIMARY) HYPERTENSION Qualifiers: Hypertension type: essential hypertension Qualified Code(s): I10 - Essential (primary) hypertension (8) Diarrhea Code(s): R19.7 - DIARRHEA, UNSPECIFIED Qualifiers: Diarrhea type: unspecified type Qualified Code(s): R19.7 - Diarrhea, unspecified Assessment/Plan (1) Urinary tract infection Assessment/Plan: -restarted on zosyn -had to restart, so today is day 2 of antibiotics -appreciate ID assistance Code(s): N39.0 - URINARY TRACT INFECTION, SITE NOT SPECIFIED Qualifiers: Urinary tract infection type: site unspecified Hematuria presence: with hematuria Qualified Code(s): N39.0 - Urinary tract infection, site not specified; R31.9 - Hematuria, unspecified; R31.9 - Hematuria, unspecified (2) Sepsis Assessment/Plan: -secondary to UTI -continue zosyn and IVF -still with rigors Code(s): A41.9 - SEPSIS, UNSPECIFIED ORGANISM (3) Metabolic acidosis Assessment/Plan: -acute on chronic -at baseline -continue oral bicarb Code(s): E87.2 - ACIDOSIS (4) Chronic kidney disease Assessment/Plan: -stable -hold lasix and gentle hydration Code(s): N18.9 - CHRONIC KIDNEY DISEASE, UNSPECIFIED Qualifiers: Chronic kidney disease stage: stage 4 (severe) Qualified Code(s): N18.4 - Chronic kidney disease, stage 4 (severe) (5) Diabetes Assessment/Plan: -diabetic diet -levemir bid, appears improved -FSBS and SSI -monitor, may need to adjust levemir further Code(s): E11.9 - TYPE 2 DIABETES MELLITUS WITHOUT COMPLICATIONS Qualifiers: Diabetes mellitus type: type 2 Diabetes mellitus usp insulin use: with usp use Diabetes mellitus complication status: with kidney complications Diabetes mellitus complication detail: with chronic kidney disease Chronic kidney disease stage: stage 4 (severe) Qualified Code(s): E11.22 - Type 2 diabetes mellitus with diabetic chronic kidney disease; N18.4 - Chronic kidney disease, stage 4 (severe); N18.4 - Chronic kidney disease, stage 4 (severe); N18.4 - Chronic kidney disease, stage 4 (severe); N18.4 - Chronic kidney disease, stage 4 (severe); 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; 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; 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; Z79.4 - long-term (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 of insulin (6) HLD (hyperlipidemia) Assessment/Plan: -continue lipitor Code(s): E78.5 - HYPERLIPIDEMIA, UNSPECIFIED (7) Hypertension Assessment/Plan: -continue cardura and hydralazine -controlled Code(s): I10 - ESSENTIAL (PRIMARY) HYPERTENSION Qualifiers: Hypertension type: essential hypertension Qualified Code(s): I10 - Essential (primary) hypertension (8) Diarrhea -suspect secondary to antibiotics -however since on broad spectrum antibiotics, will check c diff -monitor
--- NOTE | 2017-12-01 19:06 | PN ---
Progress Note (short form) - Note Progress Note: Renal Follow up for CKD and Metabolic acidosis Pt seen and examined at the bedside awake and alert no acute complaints no fever, chills, shaking today making urine Vital Signs Temperature 98.1 F 12/01/17 14:25 Pulse Rate 79 12/01/17 14:25 Respiratory Rate 20 12/01/17 14:25 Blood Pressure 141/80 12/01/17 14:25 O2 Sat by Pulse Oximetry (%) 99 12/01/17 09:00 Intake & Output 11/28/17 11/29/17 11/30/17 12/01/17 23:59 23:59 23:59 23:59 Intake Total 2409 310 0289 Output Total 2600 2600 4400 2600 Balance -1469 -2600 -3425 170 Weight 145.15 kg NAD awake and alert RRR, No M/R CTA no rales or wheeze soft NT/ND No LE edema CBC, BMP 12/01/17 07:41 12/01/17 07:41 Current Medications Acetaminophen (Tylenol -) 650 mg PO Q4H PRN PRN Reason: PAIN LEVEL 1-5 Atorvastatin Calcium (Lipitor -) 10 mg PO HS [facility] Last Admin: 11/30/17 21:26 Dose: 10 mg Cholecalciferol (Vitamin D3 -) 1,000 unit PO DAILY [facility] Last Admin: 12/01/17 10:50 Dose: 1,000 unit Cyanocobalamin (Vitamin B12 -) 1,000 mcg PO DAILY [facility] Last Admin: 12/01/17 10:50 Dose: 1,000 mcg Diphenhydramine HCl (Benadryl Injection -) 12.5 mg IVPUSH Q4H PRN PRN Reason: SHIVERING Doxazosin Mesylate (Cardura -) 4 mg PO DAILY [facility] Last Admin: 12/01/17 10:50 Dose: 4 mg Heparin Sodium (Porcine) (Heparin -) 5,000 unit SQ TID [facility] Last Admin: 12/01/17 14:49 Dose: 5,000 unit Hydralazine HCl (Apresoline -) 50 mg PO DAILY [facility] Last Admin: 12/01/17 10:50 Dose: 50 mg IV Flush (Triple Lumen Flush) 4 ml IVPUSH PRN PRN PRN Reason: Protocol Piperacillin Sod/Tazobactam (Sod 2.25 gm/ Dextrose) 50 mls @ 100 mls/hr IVPB Q8H-IV SHANEL PRN Reason: Protocol Last Admin: 12/01/17 18:17 Dose: 100 mls/hr Sodium Chloride (1/2 Normal Saline) 1,000 mls @ 75 mls/hr IV ASDIR [facility] Last Admin: 12/01/17 14:49 Dose: Not Given Insulin Aspart (Novolog Vial Sliding Scale -) 0 vial SQ ACHS SHANEL PRN Reason: Protocol Last Admin: 12/01/17 17:56 Dose: 4 unit Insulin Detemir (Levemir Vial) 15 units SQ BID@0700,2200 [facility] Last Admin: 12/01/17 06:03 Dose: 15 units Multivitamins/Minerals/Vitamin C (Tab-A-Vit -) 1 tab PO DAILY [facility] Last Admin: 12/01/17 10:50 Dose: 1 tab Ondansetron HCl (Zofran Injection) 4 mg IVPUSH Q6H PRN PRN Reason: NAUSEA Oxycodone HCl (Roxicodone -) 5 mg PO Q6H PRN PRN Reason: PAIN LEVEL 6-10 Sodium Bicarbonate (Sodium Bicarbonate -) 1,300 mg PO TID [facility] Last Admin: 12/01/17 14:49 Dose: 1,300 mg 66 year old gentleman with PMhx of Urethral Diversion, CKD Stage 4, COPD, Hypertension, DM, Hyperlipidemia presented to the ED with complaints of tremors and shaking and found to have Cr of 2.9 and Bicarb of 13. #CKD Stage 4 #Non-anion gap metabolic acidosis with respiratory compensation #Complicated UTI Renal function at baseline at this time Will increase sodium bicarb to 650mg TID with goal serum bicarb of 22 Continue Abx as per ROSIE Forbes DO
[2017-12-01] MEDS: ATORVASTATIN CA 10 MG TABLET (FP) PO SCH (22:13)
[2017-12-02] MEDS ORDERED: DEXTROSE 5%-WATER - 50 ML IVPB ONE ×3 (01:11→18:13)
[2017-12-02] MEDS ORDERED: PIPERACILLIN/TAZOBACTAM 2.25 GM VIAL IVPB ONE ×3 (01:11→18:13)
[2017-12-02] MEDS: PIPERACILLIN/TAZOB 2.25 GM 2.25 GM in DEXTROSE 5%-WATER - 50 ML IVPB SCH ×3 (01:47→18:16)
[2017-12-02] MEDS: HEPARIN NA (PORCINE) 5,000 UNITS/ML 1ML VIAL SQ SCH ×3 (05:52→21:47)
[2017-12-02] MEDS: SODIUM BICARBONATE 650 MG TABLET PO SCH ×3 (05:52→21:47)
[2017-12-02] MEDS: INSULIN SLIDING SCALE (NOVOLOG) 1 VIAL SQ SCH ×4 (06:01→23:25)
[2017-12-02] MEDS: INSULIN (LEVEMIR) 100 UNITS/ML UNITS SQ SCH ×2 (06:01→21:48)
[2017-12-02 08:05] LABS: HEMATOCRIT 33.9 % (35.4-49); HEMOGLOBIN 11.5 GM/dL (11.7-16.9); MCHC 34.1 g/dl (32.0-35.9); MEAN CELL VOLUME 82.1 fl (80-96); MEAN PLT VOLUME 8.2 fl (7.5-11.1); PLATELET COUNT 300 K/MM3 (134-434); RBC 4.12 M/mm3 (4.00-5.60); WHITE BLOOD COUNT 8.4 K/mm3 (4.0-10.0)
[2017-12-02 08:29] LABS: ANION GAP 10 (8-16); BLOOD UREA NITROGEN 34 mg/dL (7-18); CALCIUM 8.9 mg/dL (8.5-10.1); CHLORIDE 111 mmol/L (98-107); CO2 18 mmol/L (21-32); CREATININE 2.3 mg/dL (0.7-1.3); GLUCOSE,RANDOM 178 mg/dL (74-106); MAGNESIUM 2.2 mg/dL (1.8-2.4); PHOSPHOROUS 3.8 mg/dL (2.5-4.9); POTASSIUM 4.5 mmol/L (3.5-5.1); SODIUM 139 mmol/L (136-145)
[2017-12-02] MEDS ORDERED: PT OWN MED DRAWER 7, Y5N ONE ×2 (09:37→09:40)
[2017-12-02 10:52] LABS: PLATELET ESTIMATE ADEQUATE
[2017-12-02] MEDS: MULTIVITAMINS (DAILY MVI) TABLET (FP) PO SCH (10:58)
[2017-12-02] MEDS: DOXAZOSIN MESYLATE 4 MG TABLET PO SCH (10:58)
[2017-12-02] MEDS: CYANOCOBALAMIN 1,000 MCG TABLET (FP) PO SCH (10:58)
[2017-12-02] MEDS: hydrALAZINE HCL 50 MG TABLET (FP) PO SCH (10:59)
[2017-12-02] MEDS: CHOLECALCIFEROL (VITAMIN D3) 1,000 UNIT TABLET (FP) PO SCH (10:59)
--- NOTE | 2017-12-02 12:26 | PN ---
Progress Note, Physician History of Present Illness: patient stable feels much better no complaints says today he did not have any shivers - Current Medication List Current Medications: Active Medications Acetaminophen (Tylenol -) 650 mg PO Q4H PRN PRN Reason: PAIN LEVEL 1-5 Atorvastatin Calcium (Lipitor -) 10 mg PO HS [facility] Last Admin: 12/01/17 22:13 Dose: 10 mg Cholecalciferol (Vitamin D3 -) 1,000 unit PO DAILY [facility] Last Admin: 12/02/17 10:59 Dose: 1,000 unit Cyanocobalamin (Vitamin B12 -) 1,000 mcg PO DAILY [facility] Last Admin: 12/02/17 10:58 Dose: 1,000 mcg Diphenhydramine HCl (Benadryl Injection -) 12.5 mg IVPUSH Q4H PRN PRN Reason: SHIVERING Doxazosin Mesylate (Cardura -) 4 mg PO DAILY [facility] Last Admin: 12/02/17 10:58 Dose: 4 mg Heparin Sodium (Porcine) (Heparin -) 5,000 unit SQ TID [facility] Last Admin: 12/02/17 05:52 Dose: 5,000 unit Hydralazine HCl (Apresoline -) 50 mg PO DAILY [facility] Last Admin: 12/02/17 10:59 Dose: 50 mg IV Flush (Triple Lumen Flush) 4 ml IVPUSH PRN PRN PRN Reason: Protocol Piperacillin Sod/Tazobactam (Sod 2.25 gm/ Dextrose) 50 mls @ 100 mls/hr IVPB Q8H-IV SHANEL PRN Reason: Protocol Last Admin: 12/02/17 10:57 Dose: 100 mls/hr Sodium Chloride (1/2 Normal Saline) 1,000 mls @ 75 mls/hr IV ASDIR [facility] Last Admin: 12/01/17 22:10 Dose: 75 mls/hr Insulin Aspart (Novolog Vial Sliding Scale -) 0 vial SQ ACHS SHANEL PRN Reason: Protocol Last Admin: 12/02/17 06:01 Dose: 2 unit Insulin Detemir (Levemir Vial) 15 units SQ BID@0700,2200 [facility] Last Admin: 12/02/17 06:01 Dose: 15 units Multivitamins/Minerals/Vitamin C (Tab-A-Vit -) 1 tab PO DAILY [facility] Last Admin: 12/02/17 10:58 Dose: 1 tab Ondansetron HCl (Zofran Injection) 4 mg IVPUSH Q6H PRN PRN Reason: NAUSEA Oxycodone HCl (Roxicodone -) 5 mg PO Q6H PRN PRN Reason: PAIN LEVEL 6-10 Sodium Bicarbonate (Sodium Bicarbonate -) 1,300 mg PO TID [facility] Last Admin: 12/02/17 05:52 Dose: 1,300 mg - Objective Vital Signs: Vital Signs Temperature 98.1 F 12/02/17 06:00 Pulse Rate 93 H 12/02/17 06:00 Respiratory Rate 20 12/02/17 06:00 Blood Pressure 120/54 12/02/17 06:00 O2 Sat by Pulse Oximetry (%) 99 12/01/17 21:00 Constitutional: Yes: No Distress, Calm Cardiovascular: Yes: Regular Rate and Rhythm Respiratory: Yes: Regular, CTA Bilaterally Gastrointestinal: Yes: Normal Bowel Sounds, Soft, Other (urostomy tube in place) Musculoskeletal: Yes: WNL Extremities: Yes: WNL Neurological: Yes: Alert, Oriented Psychiatric: Yes: Alert, Oriented Labs: CBC, BMP 12/02/17 06:15 12/02/17 06:15 INR, PTT INR 1.12 (0.82-1.09) 11/26/17 09:00 Assessment/Plan Problem List - Problems (1) Urinary tract infection Code(s): N39.0 - URINARY TRACT INFECTION, SITE NOT SPECIFIED Qualifiers: Urinary tract infection type: site unspecified Hematuria presence: with hematuria Qualified Code(s): N39.0 - Urinary tract infection, site not specified; R31.9 - Hematuria, unspecified; R31.9 - Hematuria, unspecified (2) ARF (acute renal failure) Code(s): N17.9 - ACUTE KIDNEY FAILURE, UNSPECIFIED Qualifiers: Acute renal failure type: unspecified Qualified Code(s): N17.9 - Acute kidney failure, unspecified (3) Anemia Code(s): D64.9 - ANEMIA, UNSPECIFIED (4) Bladder cancer Code(s): C67.9 - MALIGNANT NEOPLASM OF BLADDER, UNSPECIFIED (5) CVA (cerebral vascular accident) Code(s): I63.9 - CEREBRAL INFARCTION, UNSPECIFIED (6) Chronic kidney disease Code(s): N18.9 - CHRONIC KIDNEY DISEASE, UNSPECIFIED Qualifiers: Chronic kidney disease stage: stage 4 (severe) Qualified Code(s): N18.4 - Chronic kidney disease, stage 4 (severe) (7) Diabetes Code(s): E11.9 - TYPE 2 DIABETES MELLITUS WITHOUT COMPLICATIONS Qualifiers: Diabetes mellitus type: type 2 Diabetes mellitus detention insulin use: with terminal superintendent use Diabetes mellitus complication status: with kidney complications Diabetes mellitus complication detail: with chronic kidney disease Chronic kidney disease stage: stage 4 (severe) Qualified Code(s): E11.22 - Type 2 diabetes mellitus with diabetic chronic kidney disease; N18.4 - Chronic kidney disease, stage 4 (severe); N18.4 - Chronic kidney disease, stage 4 (severe); N18.4 - Chronic kidney disease, stage 4 (severe); N18.4 - Chronic kidney disease, stage 4 (severe); Z79.4 - USP (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 of insulin; Z79.4 - joint terminal attack controller (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 of insulin; Z79.4 - joint terminal attack controller (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 of insulin; Z79.4 - USP (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 of insulin (8) H/O total cystectomy Code(s): Z98.89 - OTHER SPECIFIED POSTPROCEDURAL STATES * DO NOT USE * (9) Hypertension Code(s): I10 - ESSENTIAL (PRIMARY) HYPERTENSION Qualifiers: Hypertension type: essential hypertension Qualified Code(s): I10 - Essential (primary) hypertension (10) Leukocytosis Code(s): D72.829 - ELEVATED WHITE BLOOD CELL COUNT, UNSPECIFIED Qualifiers: Leukocytosis type: bandemia Qualified Code(s): D72.825 - Bandemia plan continue iv abx continue current mgmt watch for fevers rest as per the team
--- NOTE | 2017-12-02 16:40 | PN ---
Progress Note, Physician Chief Complaint: Mr Isaacs says he is feeling good today, shivering has resolved. No cp, sob, n/ v. - Current Medication List Current Medications: Active Medications Acetaminophen (Tylenol -) 650 mg PO Q4H PRN PRN Reason: PAIN LEVEL 1-5 Atorvastatin Calcium (Lipitor -) 10 mg PO HS [facility] Last Admin: 12/01/17 22:13 Dose: 10 mg Cholecalciferol (Vitamin D3 -) 1,000 unit PO DAILY [facility] Last Admin: 12/02/17 10:59 Dose: 1,000 unit Cyanocobalamin (Vitamin B12 -) 1,000 mcg PO DAILY [facility] Last Admin: 12/02/17 10:58 Dose: 1,000 mcg Diphenhydramine HCl (Benadryl Injection -) 12.5 mg IVPUSH Q4H PRN PRN Reason: SHIVERING Doxazosin Mesylate (Cardura -) 4 mg PO DAILY [facility] Last Admin: 12/02/17 10:58 Dose: 4 mg Heparin Sodium (Porcine) (Heparin -) 5,000 unit SQ TID [facility] Last Admin: 12/02/17 14:21 Dose: 5,000 unit Hydralazine HCl (Apresoline -) 50 mg PO DAILY [facility] Last Admin: 12/02/17 10:59 Dose: 50 mg IV Flush (Triple Lumen Flush) 4 ml IVPUSH PRN PRN PRN Reason: Protocol Piperacillin Sod/Tazobactam (Sod 2.25 gm/ Dextrose) 50 mls @ 100 mls/hr IVPB Q8H-IV SHANEL PRN Reason: Protocol Last Admin: 12/02/17 10:57 Dose: 100 mls/hr Sodium Chloride (1/2 Normal Saline) 1,000 mls @ 75 mls/hr IV ASDIR [facility] Last Admin: 12/01/17 22:10 Dose: 75 mls/hr Insulin Aspart (Novolog Vial Sliding Scale -) 0 vial SQ ACHS SHANEL PRN Reason: Protocol Last Admin: 12/02/17 12:28 Dose: 2 unit Insulin Detemir (Levemir Vial) 15 units SQ BID@0700,2200 [facility] Last Admin: 12/02/17 06:01 Dose: 15 units Multivitamins/Minerals/Vitamin C (Tab-A-Vit -) 1 tab PO DAILY [facility] Last Admin: 12/02/17 10:58 Dose: 1 tab Ondansetron HCl (Zofran Injection) 4 mg IVPUSH Q6H PRN PRN Reason: NAUSEA Oxycodone HCl (Roxicodone -) 5 mg PO Q6H PRN PRN Reason: PAIN LEVEL 6-10 Sodium Bicarbonate (Sodium Bicarbonate -) 1,300 mg PO TID [facility] Last Admin: 12/02/17 14:21 Dose: 1,300 mg - Objective Vital Signs: Vital Signs Temperature 36.8 C 12/02/17 13:35 Pulse Rate 83 12/02/17 13:35 Respiratory Rate 20 12/02/17 13:35 Blood Pressure 132/70 12/02/17 13:35 O2 Sat by Pulse Oximetry (%) 99 12/01/17 21:00 Constitutional: Yes: No Distress, Calm, Obese Cardiovascular: Yes: Regular Rate and Rhythm. No: Gallop, Murmur, Rub Respiratory: Yes: Regular, CTA Bilaterally. No: Rales, Rhonchi, Wheezes Gastrointestinal: Yes: Normal Bowel Sounds, Soft. No: Distention, Tenderness Extremities: Yes: WNL Edema: No Labs: CBC, BMP 12/02/17 06:15 12/02/17 06:15 INR, PTT INR 1.12 (0.82-1.09) 11/26/17 09:00 Problem List - Problems (1) Urinary tract infection Code(s): N39.0 - URINARY TRACT INFECTION, SITE NOT SPECIFIED Qualifiers: Urinary tract infection type: site unspecified Hematuria presence: with hematuria Qualified Code(s): N39.0 - Urinary tract infection, site not specified; R31.9 - Hematuria, unspecified; R31.9 - Hematuria, unspecified (2) Sepsis Code(s): A41.9 - SEPSIS, UNSPECIFIED ORGANISM (3) Metabolic acidosis Code(s): E87.2 - ACIDOSIS (4) Chronic kidney disease Code(s): N18.9 - CHRONIC KIDNEY DISEASE, UNSPECIFIED Qualifiers: Chronic kidney disease stage: stage 4 (severe) Qualified Code(s): N18.4 - Chronic kidney disease, stage 4 (severe) (5) Diabetes Code(s): E11.9 - TYPE 2 DIABETES MELLITUS WITHOUT COMPLICATIONS Qualifiers: Diabetes mellitus type: type 2 Diabetes mellitus prison insulin use: with termite control technician use Diabetes mellitus complication status: with kidney complications Diabetes mellitus complication detail: with chronic kidney disease Chronic kidney disease stage: stage 4 (severe) Qualified Code(s): E11.22 - Type 2 diabetes mellitus with diabetic chronic kidney disease; N18.4 - Chronic kidney disease, stage 4 (severe); N18.4 - Chronic kidney disease, stage 4 (severe); N18.4 - Chronic kidney disease, stage 4 (severe); N18.4 - Chronic kidney disease, stage 4 (severe); Z79.4 - assisted (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 of insulin; Z79.4 - vermin exterminator (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 of insulin; Z79.4 - vermin exterminator (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 of insulin; Z79.4 - vermin exterminator (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 of insulin (6) HLD (hyperlipidemia) Code(s): E78.5 - HYPERLIPIDEMIA, UNSPECIFIED (7) Hypertension Code(s): I10 - ESSENTIAL (PRIMARY) HYPERTENSION Qualifiers: Hypertension type: essential hypertension Qualified Code(s): I10 - Essential (primary) hypertension (8) Diarrhea Code(s): R19.7 - DIARRHEA, UNSPECIFIED Qualifiers: Diarrhea type: unspecified type Qualified Code(s): R19.7 - Diarrhea, unspecified Assessment/Plan (1) Urinary tract infection Assessment/Plan: -continue zosyn -day 3 -appreciate ID assistance Code(s): N39.0 - URINARY TRACT INFECTION, SITE NOT SPECIFIED Qualifiers: Urinary tract infection type: site unspecified Hematuria presence: with hematuria Qualified Code(s): N39.0 - Urinary tract infection, site not specified; R31.9 - Hematuria, unspecified; R31.9 - Hematuria, unspecified (2) Sepsis Assessment/Plan: -secondary to UTI -continue zosyn and IVF -resolved Code(s): A41.9 - SEPSIS, UNSPECIFIED ORGANISM (3) Metabolic acidosis Assessment/Plan: -acute on chronic -at baseline -continue oral bicarb Code(s): E87.2 - ACIDOSIS (4) Chronic kidney disease Assessment/Plan: -stable -hold lasix and gentle hydration -defer IVF cessation and restarting lasix to nephrolog Code(s): N18.9 - CHRONIC KIDNEY DISEASE, UNSPECIFIED Qualifiers: Chronic kidney disease stage: stage 4 (severe) Qualified Code(s): N18.4 - Chronic kidney disease, stage 4 (severe) (5) Diabetes Assessment/Plan: -diabetic diet -continue levemir bid -FSBS and SSI -suspect elevated secondary to zosyn being in D5W Code(s): E11.9 - TYPE 2 DIABETES MELLITUS WITHOUT COMPLICATIONS Qualifiers: Diabetes mellitus type: type 2 Diabetes mellitus termite control technician insulin use: with termite control technician use Diabetes mellitus complication status: with kidney complications Diabetes mellitus complication detail: with chronic kidney disease Chronic kidney disease stage: stage 4 (severe) Qualified Code(s): E11.22 - Type 2 diabetes mellitus with diabetic chronic kidney disease; N18.4 - Chronic kidney disease, stage 4 (severe); N18.4 - Chronic kidney disease, stage 4 (severe); N18.4 - Chronic kidney disease, stage 4 (severe); N18.4 - Chronic kidney disease, stage 4 (severe); Z79.4 - assisted (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 of insulin; Z79.4 - vermin exterminator (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 of insulin; Z79.4 - assisted (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 of insulin; Z79.4 - assisted (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 of insulin (6) HLD (hyperlipidemia) Assessment/Plan: -continue lipitor Code(s): E78.5 - HYPERLIPIDEMIA, UNSPECIFIED (7) Hypertension Assessment/Plan: -continue cardura and hydralazine -controlled Code(s): I10 - ESSENTIAL (PRIMARY) HYPERTENSION Qualifiers: Hypertension type: essential hypertension Qualified Code(s): I10 - Essential (primary) hypertension (8) Diarrhea -currently resolved
[2017-12-02] MEDS: SODIUM CHLORIDE 0.45% 1,000 ML IV SCH (18:17)
[2017-12-02] MEDS: ATORVASTATIN CA 10 MG TABLET (FP) PO SCH (21:50)
--- NOTE | 2017-12-02 23:16 | PN ---
Progress Note (short form) - Note Progress Note: Renal Follow up for CKD and Metabolic acidosis Pt seen and examined at the bedside feels better has mild sob no fevers, chills making urine Vital Signs Temperature 98.9 F 12/02/17 16:45 Pulse Rate 61 12/02/17 16:45 Respiratory Rate 20 12/02/17 16:45 Blood Pressure 137/63 12/02/17 16:45 O2 Sat by Pulse Oximetry (%) 99 12/01/17 21:00 Intake & Output 11/30/17 12/01/17 12/02/17 12/03/17 23:59 23:59 23:59 23:59 Intake Total 975 2770 800 Output Total 4400 4300 3300 Balance -3425 -1530 -2500 Weight 145.15 kg NAD awake and alert RRR, No M/R CTA no rales or wheeze soft NT/ND + edema CBC, BMP 12/02/17 06:15 12/02/17 06:15 Current Medications Acetaminophen (Tylenol -) 650 mg PO Q4H PRN PRN Reason: PAIN LEVEL 1-5 Atorvastatin Calcium (Lipitor -) 10 mg PO HS [facility] Last Admin: 12/02/17 21:50 Dose: 10 mg Cholecalciferol (Vitamin D3 -) 1,000 unit PO DAILY [facility] Last Admin: 12/02/17 10:59 Dose: 1,000 unit Cyanocobalamin (Vitamin B12 -) 1,000 mcg PO DAILY [facility] Last Admin: 12/02/17 10:58 Dose: 1,000 mcg Diphenhydramine HCl (Benadryl Injection -) 12.5 mg IVPUSH Q4H PRN PRN Reason: SHIVERING Doxazosin Mesylate (Cardura -) 4 mg PO DAILY [facility] Last Admin: 12/02/17 10:58 Dose: 4 mg Heparin Sodium (Porcine) (Heparin -) 5,000 unit SQ TID [facility] Last Admin: 12/02/17 21:47 Dose: 5,000 unit Hydralazine HCl (Apresoline -) 50 mg PO DAILY [facility] Last Admin: 12/02/17 10:59 Dose: 50 mg IV Flush (Triple Lumen Flush) 4 ml IVPUSH PRN PRN PRN Reason: Protocol Piperacillin Sod/Tazobactam (Sod 2.25 gm/ Dextrose) 50 mls @ 100 mls/hr IVPB Q8H-IV [facility] PRN Reason: Protocol Last Admin: 12/02/17 18:16 Dose: 100 mls/hr Sodium Chloride (1/2 Normal Saline) 1,000 mls @ 75 mls/hr IV ASDIR [facility] Last Admin: 12/02/17 18:17 Dose: 75 mls/hr Insulin Aspart (Novolog Vial Sliding Scale -) 0 vial SQ ACHS [facility] PRN Reason: Protocol Last Admin: 12/02/17 23:25 Dose: 4 unit Insulin Detemir (Levemir Vial) 15 units SQ BID@0700,2200 [facility] Last Admin: 12/02/17 21:48 Dose: 15 units Multivitamins/Minerals/Vitamin C (Tab-A-Vit -) 1 tab PO DAILY [facility] Last Admin: 12/02/17 10:58 Dose: 1 tab Ondansetron HCl (Zofran Injection) 4 mg IVPUSH Q6H PRN PRN Reason: NAUSEA Oxycodone HCl (Roxicodone -) 5 mg PO Q6H PRN PRN Reason: PAIN LEVEL 6-10 Sodium Bicarbonate (Sodium Bicarbonate -) 1,300 mg PO TID [facility] Last Admin: 12/02/17 21:47 Dose: 1,300 mg 66 year old gentleman with PMhx of Urethral Diversion, CKD Stage 4, COPD, Hypertension, DM, Hyperlipidemia presented to the ED with complaints of tremors and shaking and found to have Cr of 2.9 and Bicarb of 13. #CKD Stage 4 #Non-anion gap metabolic acidosis with respiratory compensation #Complicated UTI Renal function at baseline at this time Continue TID sodium bicarb D/C IVF restart Oral Laix daily for management of LE edema Freddie Forbes DO
[2017-12-03] MEDS ORDERED: DEXTROSE 5%-WATER - 50 ML IVPB ONE ×3 (01:43→16:57)
[2017-12-03] MEDS ORDERED: PIPERACILLIN/TAZOBACTAM 2.25 GM VIAL IVPB ONE ×3 (01:43→16:57)
[2017-12-03] MEDS: PIPERACILLIN/TAZOB 2.25 GM 2.25 GM in DEXTROSE 5%-WATER - 50 ML IVPB SCH ×3 (02:00→18:11)
[2017-12-03] MEDS: HEPARIN NA (PORCINE) 5,000 UNITS/ML 1ML VIAL SQ SCH ×3 (06:22→22:56)
[2017-12-03] MEDS: SODIUM BICARBONATE 650 MG TABLET PO SCH ×3 (06:22→22:56)
[2017-12-03] MEDS: INSULIN SLIDING SCALE (NOVOLOG) 1 VIAL SQ SCH ×4 (06:24→22:57)
[2017-12-03] MEDS: INSULIN (LEVEMIR) 100 UNITS/ML UNITS SQ SCH ×2 (06:25→22:58)
[2017-12-03 07:42] LABS: HEMATOCRIT 34.5 % (35.4-49); HEMOGLOBIN 11.9 GM/dL (11.7-16.9); MCH 28.4 pg (25.7-33.7); MCHC 34.5 g/dl (32.0-35.9); MEAN CELL VOLUME 82.1 fl (80-96); MEAN PLT VOLUME 8.5 fl (7.5-11.1); PLATELET COUNT 324 K/MM3 (134-434); RDW 15.4 % (11.9-15.9)
[2017-12-03 08:01] LABS: CHLORIDE 110 mmol/L (98-107); POTASSIUM 4.9 mmol/L (3.5-5.1); SODIUM 138 mmol/L (136-145)
[2017-12-03 08:18] LABS: ANION GAP 9 (8-16); BLOOD UREA NITROGEN 34 mg/dL (7-18); CALCIUM 9.3 mg/dL (8.5-10.1); CO2 19 mmol/L (21-32); CREATININE 2.4 mg/dL (0.7-1.3); GLUCOSE,RANDOM 183 mg/dL (74-106); MAGNESIUM 2.2 mg/dL (1.8-2.4); PHOSPHOROUS 3.6 mg/dL (2.5-4.9)
[2017-12-03] MEDS: MULTIVITAMINS (DAILY MVI) TABLET (FP) PO SCH (09:43)
[2017-12-03] MEDS: CHOLECALCIFEROL (VITAMIN D3) 1,000 UNIT TABLET (FP) PO SCH (09:43)
[2017-12-03] MEDS: CYANOCOBALAMIN 1,000 MCG TABLET (FP) PO SCH (09:43)
[2017-12-03] MEDS: FUROSEMIDE 40 MG TABLET (FP) PO SCH (09:43)
[2017-12-03] MEDS: DOXAZOSIN MESYLATE 4 MG TABLET PO SCH (09:44)
[2017-12-03] MEDS: hydrALAZINE HCL 50 MG TABLET (FP) PO SCH (09:44)
[2017-12-03 12:52] LABS: ACANTHOCYTES 0; ANISOCYTOSIS 0; HELMET CELLS 0; HOWELL-JOLLY BODIES 0; MACROCYTOSIS 0; OVALOCYTE 0; PLATELET ESTIMATE NORMAL; ROULEAU 0; SICKELED CELLS 0; TARGET CELLS 0; TEAR DROP CELLS 0; TOXIC GRANULATION 0
--- NOTE | 2017-12-03 13:23 | PN ---
Progress Note (short form) - Note Progress Note: Renal Follow up for CKD and Metabolic acidosis Pt seen and examined at the bedside awake and alert no acute complaints making urine has sob with some exertion + leg swelling Vital Signs Temperature 98.4 F 12/03/17 10:00 Pulse Rate 63 12/03/17 10:00 Respiratory Rate 18 12/03/17 10:00 Blood Pressure 148/80 12/03/17 10:00 O2 Sat by Pulse Oximetry (%) 99 12/01/17 21:00 Intake & Output 11/30/17 12/01/17 12/02/17 12/03/17 23:59 23:59 23:59 23:59 Intake Total 975 2770 1200 240 Output Total 4400 4300 3300 1800 Balance -3425 -1530 -2100 -1560 Weight 145.15 kg NAD awake and alert RRR, No M/R CTA no rales or wheeze soft NT/ND + edema CBC, BMP 12/03/17 06:15 12/03/17 06:15 Current Medications Acetaminophen (Tylenol -) 650 mg PO Q4H PRN PRN Reason: PAIN LEVEL 1-5 Atorvastatin Calcium (Lipitor -) 10 mg PO HS [facility] Last Admin: 12/02/17 21:50 Dose: 10 mg Cholecalciferol (Vitamin D3 -) 1,000 unit PO DAILY [facility] Last Admin: 12/03/17 09:43 Dose: 1,000 unit Cyanocobalamin (Vitamin B12 -) 1,000 mcg PO DAILY [facility] Last Admin: 12/03/17 09:43 Dose: 1,000 mcg Diphenhydramine HCl (Benadryl Injection -) 12.5 mg IVPUSH Q4H PRN PRN Reason: SHIVERING Doxazosin Mesylate (Cardura -) 4 mg PO DAILY [facility] Last Admin: 12/03/17 09:44 Dose: 4 mg Furosemide (Lasix -) 40 mg PO DAILY [facility] Last Admin: 12/03/17 09:43 Dose: 40 mg Heparin Sodium (Porcine) (Heparin -) 5,000 unit SQ TID [facility] Last Admin: 12/03/17 06:22 Dose: 5,000 unit Hydralazine HCl (Apresoline -) 50 mg PO DAILY [facility] Last Admin: 12/03/17 09:44 Dose: 50 mg IV Flush (Triple Lumen Flush) 4 ml IVPUSH PRN PRN PRN Reason: Protocol Piperacillin Sod/Tazobactam (Sod 2.25 gm/ Dextrose) 50 mls @ 100 mls/hr IVPB Q8H-IV [facility] PRN Reason: Protocol Last Admin: 12/03/17 09:43 Dose: 100 mls/hr Insulin Aspart (Novolog Vial Sliding Scale -) 0 vial SQ ACHS [facility] PRN Reason: Protocol Last Admin: 12/03/17 12:51 Dose: 2 unit Insulin Detemir (Levemir Vial) 15 units SQ BID@0700,2200 [facility] Last Admin: 12/03/17 06:25 Dose: 15 units Multivitamins/Minerals/Vitamin C (Tab-A-Vit -) 1 tab PO DAILY [facility] Last Admin: 12/03/17 09:43 Dose: 1 tab Ondansetron HCl (Zofran Injection) 4 mg IVPUSH Q6H PRN PRN Reason: NAUSEA Oxycodone HCl (Roxicodone -) 5 mg PO Q6H PRN PRN Reason: PAIN LEVEL 6-10 Sodium Bicarbonate (Sodium Bicarbonate -) 1,300 mg PO TID [facility] Last Admin: 12/03/17 06:22 Dose: 1,300 mg 66 year old gentleman with PMhx of Urethral Diversion, CKD Stage 4, COPD, Hypertension, DM, Hyperlipidemia presented to the ED with complaints of tremors and shaking and found to have Cr of 2.9 and Bicarb of 13. #CKD Stage 4 #Non-anion gap metabolic acidosis with respiratory compensation #Complicated UTI Renal function stable restarted on Oral Lasix, may need to titrate to acheive evolemia off IVF low salt diet continue Abx continue sodium bicarb Freddie Forbes DO
--- NOTE | 2017-12-03 14:04 | PN ---
Progress Note, Physician History of Present Illness: patient stable no new issues - Current Medication List Current Medications: Active Medications Acetaminophen (Tylenol -) 650 mg PO Q4H PRN PRN Reason: PAIN LEVEL 1-5 Atorvastatin Calcium (Lipitor -) 10 mg PO HS [facility] Last Admin: 12/02/17 21:50 Dose: 10 mg Cholecalciferol (Vitamin D3 -) 1,000 unit PO DAILY [facility] Last Admin: 12/03/17 09:43 Dose: 1,000 unit Cyanocobalamin (Vitamin B12 -) 1,000 mcg PO DAILY [facility] Last Admin: 12/03/17 09:43 Dose: 1,000 mcg Diphenhydramine HCl (Benadryl Injection -) 12.5 mg IVPUSH Q4H PRN PRN Reason: SHIVERING Doxazosin Mesylate (Cardura -) 4 mg PO DAILY [facility] Last Admin: 12/03/17 09:44 Dose: 4 mg Furosemide (Lasix -) 40 mg PO DAILY [facility] Last Admin: 12/03/17 09:43 Dose: 40 mg Heparin Sodium (Porcine) (Heparin -) 5,000 unit SQ TID [facility] Last Admin: 12/03/17 06:22 Dose: 5,000 unit Hydralazine HCl (Apresoline -) 50 mg PO DAILY [facility] Last Admin: 12/03/17 09:44 Dose: 50 mg IV Flush (Triple Lumen Flush) 4 ml IVPUSH PRN PRN PRN Reason: Protocol Piperacillin Sod/Tazobactam (Sod 2.25 gm/ Dextrose) 50 mls @ 100 mls/hr IVPB Q8H-IV [facility] PRN Reason: Protocol Last Admin: 12/03/17 09:43 Dose: 100 mls/hr Insulin Aspart (Novolog Vial Sliding Scale -) 0 vial SQ ACHS [facility] PRN Reason: Protocol Last Admin: 12/03/17 12:51 Dose: 2 unit Insulin Detemir (Levemir Vial) 15 units SQ BID@0700,2200 [facility] Last Admin: 12/03/17 06:25 Dose: 15 units Multivitamins/Minerals/Vitamin C (Tab-A-Vit -) 1 tab PO DAILY [facility] Last Admin: 12/03/17 09:43 Dose: 1 tab Ondansetron HCl (Zofran Injection) 4 mg IVPUSH Q6H PRN PRN Reason: NAUSEA Oxycodone HCl (Roxicodone -) 5 mg PO Q6H PRN PRN Reason: PAIN LEVEL 6-10 Sodium Bicarbonate (Sodium Bicarbonate -) 1,300 mg PO TID [facility] Last Admin: 12/03/17 06:22 Dose: 1,300 mg - Objective Vital Signs: Vital Signs Temperature 98.4 F 12/03/17 10:00 Pulse Rate 63 12/03/17 10:00 Respiratory Rate 18 12/03/17 10:00 Blood Pressure 148/80 12/03/17 10:00 O2 Sat by Pulse Oximetry (%) 99 12/01/17 21:00 Constitutional: Yes: No Distress, Calm Cardiovascular: Yes: Regular Rate and Rhythm Respiratory: Yes: Regular, CTA Bilaterally Gastrointestinal: Yes: Normal Bowel Sounds, Soft Genitourinary: Yes: Other (urostomy bag in place) Musculoskeletal: Yes: WNL Extremities: Yes: WNL Neurological: Yes: Alert, Oriented Psychiatric: Yes: Alert, Oriented Labs: CBC, BMP 12/03/17 06:15 12/03/17 06:15 INR, PTT INR 1.12 (0.82-1.09) 11/26/17 09:00 Assessment/Plan Problem List - Problems (1) Urinary tract infection Code(s): N39.0 - URINARY TRACT INFECTION, SITE NOT SPECIFIED Qualifiers: Urinary tract infection type: site unspecified Hematuria presence: with hematuria Qualified Code(s): N39.0 - Urinary tract infection, site not specified; R31.9 - Hematuria, unspecified; R31.9 - Hematuria, unspecified (2) ARF (acute renal failure) Code(s): N17.9 - ACUTE KIDNEY FAILURE, UNSPECIFIED Qualifiers: Acute renal failure type: unspecified Qualified Code(s): N17.9 - Acute kidney failure, unspecified (3) Anemia Code(s): D64.9 - ANEMIA, UNSPECIFIED (4) Bladder cancer Code(s): C67.9 - MALIGNANT NEOPLASM OF BLADDER, UNSPECIFIED (5) CVA (cerebral vascular accident) Code(s): I63.9 - CEREBRAL INFARCTION, UNSPECIFIED (6) Chronic kidney disease Code(s): N18.9 - CHRONIC KIDNEY DISEASE, UNSPECIFIED Qualifiers: Chronic kidney disease stage: stage 4 (severe) Qualified Code(s): N18.4 - Chronic kidney disease, stage 4 (severe) (7) Diabetes Code(s): E11.9 - TYPE 2 DIABETES MELLITUS WITHOUT COMPLICATIONS Qualifiers: Diabetes mellitus type: type 2 Diabetes mellitus prison insulin use: with long term care pharmacist use Diabetes mellitus complication status: with kidney complications Diabetes mellitus complication detail: with chronic kidney disease Chronic kidney disease stage: stage 4 (severe) Qualified Code(s): E11.22 - Type 2 diabetes mellitus with diabetic chronic kidney disease; N18.4 - Chronic kidney disease, stage 4 (severe); N18.4 - Chronic kidney disease, stage 4 (severe); N18.4 - Chronic kidney disease, stage 4 (severe); N18.4 - Chronic kidney disease, stage 4 (severe); Z79.4 - long term care pharmacist (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 of insulin; Z79.4 - prison (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 of insulin; Z79.4 - long term care pharmacist (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 of insulin; Z79.4 - long term care pharmacist (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 of insulin (8) H/O total cystectomy Code(s): Z98.89 - OTHER SPECIFIED POSTPROCEDURAL STATES * DO NOT USE * (9) Hypertension Code(s): I10 - ESSENTIAL (PRIMARY) HYPERTENSION Qualifiers: Hypertension type: essential hypertension Qualified Code(s): I10 - Essential (primary) hypertension (10) Leukocytosis Code(s): D72.829 - ELEVATED WHITE BLOOD CELL COUNT, UNSPECIFIED Qualifiers: Leukocytosis type: bandemia Qualified Code(s): D72.825 - Bandemia plan continue iv abx continue current mgmt watch for fevers rest as per the team patient improving will need to complete total of 7 days
--- NOTE | 2017-12-03 15:16 | PN ---
Progress Note, Physician Chief Complaint: Mr Isaacs is feeling well and without complaint. No cp, sob, n/v. - Current Medication List Current Medications: Active Medications Acetaminophen (Tylenol -) 650 mg PO Q4H PRN PRN Reason: PAIN LEVEL 1-5 Atorvastatin Calcium (Lipitor -) 10 mg PO HS [facility] Last Admin: 12/02/17 21:50 Dose: 10 mg Cholecalciferol (Vitamin D3 -) 1,000 unit PO DAILY [facility] Last Admin: 12/03/17 09:43 Dose: 1,000 unit Cyanocobalamin (Vitamin B12 -) 1,000 mcg PO DAILY [facility] Last Admin: 12/03/17 09:43 Dose: 1,000 mcg Diphenhydramine HCl (Benadryl Injection -) 12.5 mg IVPUSH Q4H PRN PRN Reason: SHIVERING Doxazosin Mesylate (Cardura -) 4 mg PO DAILY [facility] Last Admin: 12/03/17 09:44 Dose: 4 mg Furosemide (Lasix -) 40 mg PO DAILY [facility] Last Admin: 12/03/17 09:43 Dose: 40 mg Heparin Sodium (Porcine) (Heparin -) 5,000 unit SQ TID [facility] Last Admin: 12/03/17 06:22 Dose: 5,000 unit Hydralazine HCl (Apresoline -) 50 mg PO DAILY [facility] Last Admin: 12/03/17 09:44 Dose: 50 mg IV Flush (Triple Lumen Flush) 4 ml IVPUSH PRN PRN PRN Reason: Protocol Piperacillin Sod/Tazobactam (Sod 2.25 gm/ Dextrose) 50 mls @ 100 mls/hr IVPB Q8H-IV [facility] PRN Reason: Protocol Last Admin: 12/03/17 09:43 Dose: 100 mls/hr Insulin Aspart (Novolog Vial Sliding Scale -) 0 vial SQ ACHS [facility] PRN Reason: Protocol Last Admin: 12/03/17 12:51 Dose: 2 unit Insulin Detemir (Levemir Vial) 15 units SQ BID@0700,2200 [facility] Last Admin: 12/03/17 06:25 Dose: 15 units Multivitamins/Minerals/Vitamin C (Tab-A-Vit -) 1 tab PO DAILY [facility] Last Admin: 12/03/17 09:43 Dose: 1 tab Ondansetron HCl (Zofran Injection) 4 mg IVPUSH Q6H PRN PRN Reason: NAUSEA Oxycodone HCl (Roxicodone -) 5 mg PO Q6H PRN PRN Reason: PAIN LEVEL 6-10 Sodium Bicarbonate (Sodium Bicarbonate -) 1,300 mg PO TID [facility] Last Admin: 12/03/17 06:22 Dose: 1,300 mg - Objective Vital Signs: Vital Signs Temperature 36.2 C L 12/03/17 14:44 Pulse Rate 68 12/03/17 14:44 Respiratory Rate 18 12/03/17 14:44 Blood Pressure 152/71 12/03/17 14:44 O2 Sat by Pulse Oximetry (%) 99 12/01/17 21:00 Constitutional: Yes: No Distress, Calm, Obese Cardiovascular: Yes: Regular Rate and Rhythm. No: Gallop, Murmur, Rub Respiratory: Yes: Regular, CTA Bilaterally. No: Rales, Rhonchi, Wheezes Gastrointestinal: Yes: Normal Bowel Sounds, Soft. No: Distention, Tenderness Extremities: Yes: WNL Edema: No Labs: CBC, BMP 12/03/17 06:15 12/03/17 06:15 INR, PTT INR 1.12 (0.82-1.09) 11/26/17 09:00 Problem List - Problems (1) Urinary tract infection Code(s): N39.0 - URINARY TRACT INFECTION, SITE NOT SPECIFIED Qualifiers: Urinary tract infection type: site unspecified Hematuria presence: with hematuria Qualified Code(s): N39.0 - Urinary tract infection, site not specified; R31.9 - Hematuria, unspecified; R31.9 - Hematuria, unspecified (2) Sepsis Code(s): A41.9 - SEPSIS, UNSPECIFIED ORGANISM (3) Metabolic acidosis Code(s): E87.2 - ACIDOSIS (4) Chronic kidney disease Code(s): N18.9 - CHRONIC KIDNEY DISEASE, UNSPECIFIED Qualifiers: Chronic kidney disease stage: stage 4 (severe) Qualified Code(s): N18.4 - Chronic kidney disease, stage 4 (severe) (5) Diabetes Code(s): E11.9 - TYPE 2 DIABETES MELLITUS WITHOUT COMPLICATIONS Qualifiers: Diabetes mellitus type: type 2 Diabetes mellitus termite control representative insulin use: with termite control representative use Diabetes mellitus complication status: with kidney complications Diabetes mellitus complication detail: with chronic kidney disease Chronic kidney disease stage: stage 4 (severe) Qualified Code(s): E11.22 - Type 2 diabetes mellitus with diabetic chronic kidney disease; N18.4 - Chronic kidney disease, stage 4 (severe); N18.4 - Chronic kidney disease, stage 4 (severe); N18.4 - Chronic kidney disease, stage 4 (severe); N18.4 - Chronic kidney disease, stage 4 (severe); Z79.4 - residential (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 of insulin; Z79.4 - residential (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 of insulin; Z79.4 - residential (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 of insulin; Z79.4 - residential (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 of insulin (6) HLD (hyperlipidemia) Code(s): E78.5 - HYPERLIPIDEMIA, UNSPECIFIED (7) Hypertension Code(s): I10 - ESSENTIAL (PRIMARY) HYPERTENSION Qualifiers: Hypertension type: essential hypertension Qualified Code(s): I10 - Essential (primary) hypertension (8) Diarrhea Code(s): R19.7 - DIARRHEA, UNSPECIFIED Qualifiers: Diarrhea type: unspecified type Qualified Code(s): R19.7 - Diarrhea, unspecified Assessment/Plan (1) Urinary tract infection Assessment/Plan: -continue zosyn -day 10/24 -appreciate ID assistance Code(s): N39.0 - URINARY TRACT INFECTION, SITE NOT SPECIFIED Qualifiers: Urinary tract infection type: site unspecified Hematuria presence: with hematuria Qualified Code(s): N39.0 - Urinary tract infection, site not specified; R31.9 - Hematuria, unspecified; R31.9 - Hematuria, unspecified (2) Sepsis Assessment/Plan: -resolved Code(s): A41.9 - SEPSIS, UNSPECIFIED ORGANISM (3) Metabolic acidosis Assessment/Plan: -acute on chronic -at baseline -continue oral bicarb Code(s): E87.2 - ACIDOSIS (4) Chronic kidney disease Assessment/Plan: -stable -IVF stopped -lasix restarted -appreciate ID assistance Code(s): N18.9 - CHRONIC KIDNEY DISEASE, UNSPECIFIED Qualifiers: Chronic kidney disease stage: stage 4 (severe) Qualified Code(s): N18.4 - Chronic kidney disease, stage 4 (severe) (5) Diabetes Assessment/Plan: -diabetic diet -increase levemir to 20 units bid -FSBS and SSI -suspect elevated secondary to zosyn being in D5W Code(s): E11.9 - TYPE 2 DIABETES MELLITUS WITHOUT COMPLICATIONS Qualifiers: Diabetes mellitus type: type 2 Diabetes mellitus termite control representative insulin use: with intermediate use Diabetes mellitus complication status: with kidney complications Diabetes mellitus complication detail: with chronic kidney disease Chronic kidney disease stage: stage 4 (severe) Qualified Code(s): E11.22 - Type 2 diabetes mellitus with diabetic chronic kidney disease; N18.4 - Chronic kidney disease, stage 4 (severe); N18.4 - Chronic kidney disease, stage 4 (severe); N18.4 - Chronic kidney disease, stage 4 (severe); N18.4 - Chronic kidney disease, stage 4 (severe); Z79.4 - terminal gauger supervisor (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 of insulin; Z79.4 - residential (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 of insulin; Z79.4 - residential (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 of insulin; Z79.4 - terminal gauger supervisor (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 of insulin (6) HLD (hyperlipidemia) Assessment/Plan: -continue lipitor Code(s): E78.5 - HYPERLIPIDEMIA, UNSPECIFIED (7) Hypertension Assessment/Plan: -continue cardura and hydralazine -controlled Code(s): I10 - ESSENTIAL (PRIMARY) HYPERTENSION Qualifiers: Hypertension type: essential hypertension Qualified Code(s): I10 - Essential (primary) hypertension (8) Diarrhea -currently resolved
[2017-12-03] MEDS ORDERED: PT OWN MED DRAWER 7, Y5N ONE (17:13)
[2017-12-03] MEDS: ATORVASTATIN CA 10 MG TABLET (FP) PO SCH (22:56)
[2017-12-04] MEDS ORDERED: PIPERACILLIN/TAZOBACTAM 2.25 GM VIAL IVPB ONE ×3 (00:33→17:27)
[2017-12-04] MEDS ORDERED: DEXTROSE 5%-WATER - 50 ML IVPB ONE ×3 (00:34→17:28)
[2017-12-04] MEDS: PIPERACILLIN/TAZOB 2.25 GM 2.25 GM in DEXTROSE 5%-WATER - 50 ML IVPB SCH ×3 (01:24→17:41)
[2017-12-04] MEDS: SODIUM BICARBONATE 650 MG TABLET PO SCH ×3 (05:50→21:46)
[2017-12-04] MEDS: HEPARIN NA (PORCINE) 5,000 UNITS/ML 1ML VIAL SQ SCH ×3 (05:51→21:44)
[2017-12-04] MEDS: INSULIN (LEVEMIR) 100 UNITS/ML UNITS SQ SCH ×2 (06:00→21:45)
[2017-12-04] MEDS ORDERED: INSULIN (NOVOLOG) ASPART 100 UNITS/ML 10ML VIAL ONE ×2 (06:49→21:08)
[2017-12-04] MEDS ORDERED: INSULIN (LEVEMIR) 100 UNITS/ML UNITS SQ ONE (06:50)
[2017-12-04 08:01] LABS: HEMATOCRIT 34.9 % (35.4-49); HEMOGLOBIN 11.9 GM/dL (11.7-16.9); MCHC 34.2 g/dl (32.0-35.9); MEAN CELL VOLUME 81.9 fl (80-96); MEAN PLT VOLUME 8.3 fl (7.5-11.1); PLATELET COUNT 325 K/MM3 (134-434); RBC 4.26 M/mm3 (4.00-5.60); RDW 15.3 % (11.9-15.9); WHITE BLOOD COUNT 9.8 K/mm3 (4.0-10.0)
[2017-12-04] MEDS: INSULIN SLIDING SCALE (NOVOLOG) 1 VIAL SQ SCH ×4 (08:25→21:45)
[2017-12-04 08:46] LABS: CHLORIDE 108 mmol/L (98-107); POTASSIUM 4.6 mmol/L (3.5-5.1); SODIUM 137 mmol/L (136-145)
[2017-12-04 08:54] LABS: ANION GAP 10 (8-16); BLOOD UREA NITROGEN 33 mg/dL (7-18); CALCIUM 9.1 mg/dL (8.5-10.1); CO2 19 mmol/L (21-32); CREATININE 2.6 mg/dL (0.7-1.3); GLUCOSE,RANDOM 138 mg/dL (74-106); MAGNESIUM 2.1 mg/dL (1.8-2.4); PHOSPHOROUS 3.8 mg/dL (2.5-4.9)
[2017-12-04] MEDS: FUROSEMIDE 40 MG TABLET (FP) PO SCH (10:07)
[2017-12-04] MEDS: CYANOCOBALAMIN 1,000 MCG TABLET (FP) PO SCH (10:07)
[2017-12-04] MEDS: CHOLECALCIFEROL (VITAMIN D3) 1,000 UNIT TABLET (FP) PO SCH (10:08)
[2017-12-04] MEDS: MULTIVITAMINS (DAILY MVI) TABLET (FP) PO SCH (10:08)
[2017-12-04] MEDS: hydrALAZINE HCL 50 MG TABLET (FP) PO SCH (10:08)
[2017-12-04] MEDS ORDERED: PT OWN MED DRAWER 7, Y5N ONE (10:10)
[2017-12-04] MEDS: DOXAZOSIN MESYLATE 4 MG TABLET PO SCH (10:11)
[2017-12-04 11:21] LABS: ANISOCYTOSIS 1+; MACROCYTOSIS 1+; PLATELET ESTIMATE NORMAL
[2017-12-04 11:25] LABS: TARGET CELLS 1+
--- NOTE | 2017-12-04 12:08 | PN ---
Progress Note, Physician History of Present Illness: patient stable doing well no issues patient though c/o of swelling on his arms and legs - Current Medication List Current Medications: Active Medications Acetaminophen (Tylenol -) 650 mg PO Q4H PRN PRN Reason: PAIN LEVEL 1-5 Atorvastatin Calcium (Lipitor -) 10 mg PO HS [facility] Last Admin: 12/03/17 22:56 Dose: 10 mg Cholecalciferol (Vitamin D3 -) 1,000 unit PO DAILY [facility] Last Admin: 12/04/17 10:08 Dose: 1,000 unit Cyanocobalamin (Vitamin B12 -) 1,000 mcg PO DAILY [facility] Last Admin: 12/04/17 10:07 Dose: 1,000 mcg Diphenhydramine HCl (Benadryl Injection -) 12.5 mg IVPUSH Q4H PRN PRN Reason: SHIVERING Doxazosin Mesylate (Cardura -) 4 mg PO DAILY [facility] Last Admin: 12/04/17 10:11 Dose: 4 mg Furosemide (Lasix -) 40 mg PO DAILY [facility] Last Admin: 12/04/17 10:07 Dose: 40 mg Heparin Sodium (Porcine) (Heparin -) 5,000 unit SQ TID [facility] Last Admin: 12/04/17 05:51 Dose: 5,000 unit Hydralazine HCl (Apresoline -) 50 mg PO DAILY [facility] Last Admin: 12/04/17 10:08 Dose: 50 mg IV Flush (Triple Lumen Flush) 4 ml IVPUSH PRN PRN PRN Reason: Protocol Piperacillin Sod/Tazobactam (Sod 2.25 gm/ Dextrose) 50 mls @ 100 mls/hr IVPB Q8H-IV [facility] PRN Reason: Protocol Last Admin: 12/04/17 10:08 Dose: 100 mls/hr Insulin Aspart (Novolog Vial Sliding Scale -) 0 vial SQ ACHS [facility] PRN Reason: Protocol Last Admin: 12/04/17 08:25 Dose: Not Given Insulin Detemir (Levemir Vial) 20 units SQ BID@0700,2200 [facility] Last Admin: 12/04/17 06:00 Dose: 20 unit Multivitamins/Minerals/Vitamin C (Tab-A-Vit -) 1 tab PO DAILY [facility] Last Admin: 12/04/17 10:08 Dose: 1 tab Ondansetron HCl (Zofran Injection) 4 mg IVPUSH Q6H PRN PRN Reason: NAUSEA Oxycodone HCl (Roxicodone -) 5 mg PO Q6H PRN PRN Reason: PAIN LEVEL 6-10 Sodium Bicarbonate (Sodium Bicarbonate -) 1,300 mg PO TID [facility] Last Admin: 12/04/17 05:50 Dose: 1,300 mg - Objective Vital Signs: Vital Signs Temperature 98 F 12/04/17 06:00 Pulse Rate 98 H 12/04/17 06:00 Respiratory Rate 20 12/04/17 06:00 Blood Pressure 118/78 12/04/17 06:00 O2 Sat by Pulse Oximetry (%) 97 12/03/17 21:00 Constitutional: Yes: No Distress, Calm, Obese Cardiovascular: Yes: Regular Rate and Rhythm Respiratory: Yes: Regular, CTA Bilaterally Gastrointestinal: Yes: Normal Bowel Sounds, Soft, Other (urostomy bag in place) Musculoskeletal: Yes: WNL Edema: LUE: Trace, RUE: Trace, LLE: Trace, RLE: Trace Neurological: Yes: Alert, Oriented Psychiatric: Yes: Alert, Oriented Labs: CBC, BMP 12/04/17 06:00 12/04/17 06:00 INR, PTT INR 1.12 (0.82-1.09) 11/26/17 09:00 Assessment/Plan Problem List - Problems (1) Urinary tract infection Code(s): N39.0 - URINARY TRACT INFECTION, SITE NOT SPECIFIED Qualifiers: Urinary tract infection type: site unspecified Hematuria presence: with hematuria Qualified Code(s): N39.0 - Urinary tract infection, site not specified; R31.9 - Hematuria, unspecified; R31.9 - Hematuria, unspecified (2) ARF (acute renal failure) Code(s): N17.9 - ACUTE KIDNEY FAILURE, UNSPECIFIED Qualifiers: Acute renal failure type: unspecified Qualified Code(s): N17.9 - Acute kidney failure, unspecified (3) Anemia Code(s): D64.9 - ANEMIA, UNSPECIFIED (4) Bladder cancer Code(s): C67.9 - MALIGNANT NEOPLASM OF BLADDER, UNSPECIFIED (5) CVA (cerebral vascular accident) Code(s): I63.9 - CEREBRAL INFARCTION, UNSPECIFIED (6) Chronic kidney disease Code(s): N18.9 - CHRONIC KIDNEY DISEASE, UNSPECIFIED Qualifiers: Chronic kidney disease stage: stage 4 (severe) Qualified Code(s): N18.4 - Chronic kidney disease, stage 4 (severe) (7) Diabetes Code(s): E11.9 - TYPE 2 DIABETES MELLITUS WITHOUT COMPLICATIONS Qualifiers: Diabetes mellitus type: type 2 Diabetes mellitus fpc insulin use: with fpc use Diabetes mellitus complication status: with kidney complications Diabetes mellitus complication detail: with chronic kidney disease Chronic kidney disease stage: stage 4 (severe) Qualified Code(s): E11.22 - Type 2 diabetes mellitus with diabetic chronic kidney disease; N18.4 - Chronic kidney disease, stage 4 (severe); N18.4 - Chronic kidney disease, stage 4 (severe); N18.4 - Chronic kidney disease, stage 4 (severe); N18.4 - Chronic kidney disease, stage 4 (severe); Z79.4 - feed research aide (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 of insulin; Z79.4 - feed research aide (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 of insulin; Z79.4 - senior care (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 of insulin; Z79.4 - feed research aide (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 of insulin (8) H/O total cystectomy Code(s): Z98.89 - OTHER SPECIFIED POSTPROCEDURAL STATES * DO NOT USE * (9) Hypertension Code(s): I10 - ESSENTIAL (PRIMARY) HYPERTENSION Qualifiers: Hypertension type: essential hypertension Qualified Code(s): I10 - Essential (primary) hypertension (10) Leukocytosis Code(s): D72.829 - ELEVATED WHITE BLOOD CELL COUNT, UNSPECIFIED Qualifiers: Leukocytosis type: bandemia Qualified Code(s): D72.825 - Bandemia plan continue iv abx continue current mgmt watch for fevers rest as per the team patient improving complete the course
[2017-12-04] MEDS ORDERED: CYCLOBENZAPRINE HCL 5 MG TABLET PO PRN (15:24)
--- NOTE | 2017-12-04 15:24 | PN ---
Progress Note, Physician Chief Complaint: Mr Isaacs complains of muscle contractions at night. State have been present for a month and are off and on. Occurred last night and was very painful. Denies cp, sob, n/v. - Current Medication List Current Medications: Active Medications Acetaminophen (Tylenol -) 650 mg PO Q4H PRN PRN Reason: PAIN LEVEL 1-5 Atorvastatin Calcium (Lipitor -) 10 mg PO HS [facility] Last Admin: 12/03/17 22:56 Dose: 10 mg Cholecalciferol (Vitamin D3 -) 1,000 unit PO DAILY [facility] Last Admin: 12/04/17 10:08 Dose: 1,000 unit Cyanocobalamin (Vitamin B12 -) 1,000 mcg PO DAILY [facility] Last Admin: 12/04/17 10:07 Dose: 1,000 mcg Diphenhydramine HCl (Benadryl Injection -) 12.5 mg IVPUSH Q4H PRN PRN Reason: SHIVERING Doxazosin Mesylate (Cardura -) 4 mg PO DAILY [facility] Last Admin: 12/04/17 10:11 Dose: 4 mg Furosemide (Lasix -) 40 mg PO DAILY [facility] Last Admin: 12/04/17 10:07 Dose: 40 mg Heparin Sodium (Porcine) (Heparin -) 5,000 unit SQ TID [facility] Last Admin: 12/04/17 14:53 Dose: 5,000 unit Hydralazine HCl (Apresoline -) 50 mg PO DAILY [facility] Last Admin: 12/04/17 10:08 Dose: 50 mg IV Flush (Triple Lumen Flush) 4 ml IVPUSH PRN PRN PRN Reason: Protocol Piperacillin Sod/Tazobactam (Sod 2.25 gm/ Dextrose) 50 mls @ 100 mls/hr IVPB Q8H-IV [facility] PRN Reason: Protocol Last Admin: 12/04/17 10:08 Dose: 100 mls/hr Insulin Aspart (Novolog Vial Sliding Scale -) 0 vial SQ ACHS [facility] PRN Reason: Protocol Last Admin: 12/04/17 12:17 Dose: 8 unit Insulin Detemir (Levemir Vial) 20 units SQ BID@0700,2200 [facility] Last Admin: 12/04/17 06:00 Dose: 20 unit Multivitamins/Minerals/Vitamin C (Tab-A-Vit -) 1 tab PO DAILY [facility] Last Admin: 12/04/17 10:08 Dose: 1 tab Ondansetron HCl (Zofran Injection) 4 mg IVPUSH Q6H PRN PRN Reason: NAUSEA Oxycodone HCl (Roxicodone -) 5 mg PO Q6H PRN PRN Reason: PAIN LEVEL 6-10 Sodium Bicarbonate (Sodium Bicarbonate -) 1,300 mg PO TID [facility] Last Admin: 12/04/17 14:53 Dose: 1,300 mg - Objective Vital Signs: Vital Signs Temperature 36.6 C 12/04/17 14:45 Pulse Rate 84 12/04/17 14:45 Respiratory Rate 20 12/04/17 14:45 Blood Pressure 142/76 12/04/17 14:45 O2 Sat by Pulse Oximetry (%) 97 12/03/17 21:00 Constitutional: Yes: No Distress, Calm, Obese Cardiovascular: Yes: Regular Rate and Rhythm. No: Gallop, Murmur, Rub Respiratory: Yes: Regular, CTA Bilaterally. No: Rales, Rhonchi, Wheezes Gastrointestinal: Yes: Normal Bowel Sounds, Soft. No: Distention, Tenderness Extremities: Yes: WNL Edema: No Labs: CBC, BMP 12/04/17 06:00 12/04/17 06:00 INR, PTT INR 1.12 (0.82-1.09) 11/26/17 09:00 Problem List - Problems (1) Urinary tract infection Code(s): N39.0 - URINARY TRACT INFECTION, SITE NOT SPECIFIED Qualifiers: Urinary tract infection type: site unspecified Hematuria presence: with hematuria Qualified Code(s): N39.0 - Urinary tract infection, site not specified; R31.9 - Hematuria, unspecified; R31.9 - Hematuria, unspecified (2) Sepsis Code(s): A41.9 - SEPSIS, UNSPECIFIED ORGANISM (3) Metabolic acidosis Code(s): E87.2 - ACIDOSIS (4) Chronic kidney disease Code(s): N18.9 - CHRONIC KIDNEY DISEASE, UNSPECIFIED Qualifiers: Chronic kidney disease stage: stage 4 (severe) Qualified Code(s): N18.4 - Chronic kidney disease, stage 4 (severe) (5) Diabetes Code(s): E11.9 - TYPE 2 DIABETES MELLITUS WITHOUT COMPLICATIONS Qualifiers: Diabetes mellitus type: type 2 Diabetes mellitus watermelon inspector insulin use: with penitentiary use Diabetes mellitus complication status: with kidney complications Diabetes mellitus complication detail: with chronic kidney disease Chronic kidney disease stage: stage 4 (severe) Qualified Code(s): E11.22 - Type 2 diabetes mellitus with diabetic chronic kidney disease; N18.4 - Chronic kidney disease, stage 4 (severe); N18.4 - Chronic kidney disease, stage 4 (severe); N18.4 - Chronic kidney disease, stage 4 (severe); N18.4 - Chronic kidney disease, stage 4 (severe); Z79.4 - USP (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 of insulin; Z79.4 - USP (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 of insulin; Z79.4 - assistant terminal manager (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 of insulin; Z79.4 - assistant terminal manager (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 of insulin (6) HLD (hyperlipidemia) Code(s): E78.5 - HYPERLIPIDEMIA, UNSPECIFIED (7) Hypertension Code(s): I10 - ESSENTIAL (PRIMARY) HYPERTENSION Qualifiers: Hypertension type: essential hypertension Qualified Code(s): I10 - Essential (primary) hypertension (8) Diarrhea Code(s): R19.7 - DIARRHEA, UNSPECIFIED Qualifiers: Diarrhea type: unspecified type Qualified Code(s): R19.7 - Diarrhea, unspecified (9) Spasms of the hands or feet Code(s): R25.2 - CRAMP AND SPASM Assessment/Plan (1) Urinary tract infection Assessment/Plan: -continue zosyn -day 11/23 -appreciate ID assistance -plan for discharge Thursday Code(s): N39.0 - URINARY TRACT INFECTION, SITE NOT SPECIFIED Qualifiers: Urinary tract infection type: site unspecified Hematuria presence: with hematuria Qualified Code(s): N39.0 - Urinary tract infection, site not specified; R31.9 - Hematuria, unspecified; R31.9 - Hematuria, unspecified (2) Sepsis Assessment/Plan: -resolved Code(s): A41.9 - SEPSIS, UNSPECIFIED ORGANISM (3) Metabolic acidosis Assessment/Plan: -acute on chronic -at baseline -continue oral bicarb Code(s): E87.2 - ACIDOSIS (4) Chronic kidney disease Assessment/Plan: -stable -continue lasix -nephrology following Code(s): N18.9 - CHRONIC KIDNEY DISEASE, UNSPECIFIED Qualifiers: Chronic kidney disease stage: stage 4 (severe) Qualified Code(s): N18.4 - Chronic kidney disease, stage 4 (severe) (5) Diabetes Assessment/Plan: -diabetic diet -increase levemir to 20 units bid -FSBS and SSI -suspect elevated secondary to zosyn being in D5W Code(s): E11.9 - TYPE 2 DIABETES MELLITUS WITHOUT COMPLICATIONS Qualifiers: Diabetes mellitus type: type 2 Diabetes mellitus watermelon inspector insulin use: with watermelon inspector use Diabetes mellitus complication status: with kidney complications Diabetes mellitus complication detail: with chronic kidney disease Chronic kidney disease stage: stage 4 (severe) Qualified Code(s): E11.22 - Type 2 diabetes mellitus with diabetic chronic kidney disease; N18.4 - Chronic kidney disease, stage 4 (severe); N18.4 - Chronic kidney disease, stage 4 (severe); N18.4 - Chronic kidney disease, stage 4 (severe); N18.4 - Chronic kidney disease, stage 4 (severe); Z79.4 - USP (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 of insulin; Z79.4 - USP (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 of insulin; Z79.4 - assistant terminal manager (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 of insulin; Z79.4 - assistant terminal manager (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 of insulin (6) HLD (hyperlipidemia) Assessment/Plan: -continue lipitor Code(s): E78.5 - HYPERLIPIDEMIA, UNSPECIFIED (7) Hypertension Assessment/Plan: -continue cardura and hydralazine -controlled Code(s): I10 - ESSENTIAL (PRIMARY) HYPERTENSION Qualifiers: Hypertension type: essential hypertension Qualified Code(s): I10 - Essential (primary) hypertension (8) Spasms -will give low dose magnesium -trial of prn flexeril at night
[2017-12-04] MEDS ORDERED: MAGNESIUM OXIDE 400 MG TABLET (FP) PO ONE ×2 (15:25→17:45)
[2017-12-04] MEDS ORDERED: CYCLOBENZAPRINE HCL 10 MG TABLET (FP) PO PRN (15:27)
[2017-12-04] MEDS: ATORVASTATIN CA 10 MG TABLET (FP) PO SCH (21:44)
[2017-12-05] MEDS ORDERED: PIPERACILLIN/TAZOBACTAM 2.25 GM VIAL IVPB ONE ×3 (01:00→17:01)
[2017-12-05] MEDS ORDERED: DEXTROSE 5%-WATER - 50 ML IVPB ONE ×3 (01:00→17:01)
[2017-12-05] MEDS: PIPERACILLIN/TAZOB 2.25 GM 2.25 GM in DEXTROSE 5%-WATER - 50 ML IVPB SCH ×3 (01:20→17:07)
[2017-12-05] MEDS: HEPARIN NA (PORCINE) 5,000 UNITS/ML 1ML VIAL SQ SCH ×3 (06:10→21:19)
[2017-12-05] MEDS: SODIUM BICARBONATE 650 MG TABLET PO SCH ×3 (06:10→21:19)
[2017-12-05] MEDS: INSULIN SLIDING SCALE (NOVOLOG) 1 VIAL SQ SCH ×4 (06:12→21:22)
[2017-12-05] MEDS: INSULIN (LEVEMIR) 100 UNITS/ML UNITS SQ SCH ×2 (06:13→21:23)
[2017-12-05 07:37] LABS: HEMATOCRIT 33.7 % (35.4-49); HEMOGLOBIN 11.7 GM/dL (11.7-16.9); MCH 28.4 pg (25.7-33.7); MCHC 34.7 g/dl (32.0-35.9); MEAN CELL VOLUME 81.8 fl (80-96); MEAN PLT VOLUME 8.1 fl (7.5-11.1); PLATELET COUNT 312 K/MM3 (134-434); RBC 4.12 M/mm3 (4.00-5.60); RDW 14.9 % (11.9-15.9); WHITE BLOOD COUNT 8.5 K/mm3 (4.0-10.0)
[2017-12-05 08:24] LABS: ANION GAP 10 (8-16); BLOOD UREA NITROGEN 40 mg/dL (7-18); CHLORIDE 110 mmol/L (98-107); CO2 18 mmol/L (21-32); POTASSIUM 4.8 mmol/L (3.5-5.1); SODIUM 138 mmol/L (136-145)
[2017-12-05 08:27] LABS: CALCIUM 9.1 mg/dL (8.5-10.1); CREATININE 2.8 mg/dL (0.7-1.3); GLUCOSE,RANDOM 209 mg/dL (74-106); MAGNESIUM 2.3 mg/dL (1.8-2.4); PHOSPHOROUS 4.2 mg/dL (2.5-4.9)
[2017-12-05] MEDS ORDERED: PT OWN MED DRAWER 7, Y5N ONE (09:26)
[2017-12-05] MEDS: hydrALAZINE HCL 50 MG TABLET (FP) PO SCH (09:44)
[2017-12-05] MEDS: FUROSEMIDE 40 MG TABLET (FP) PO SCH (09:44)
[2017-12-05] MEDS: DOXAZOSIN MESYLATE 4 MG TABLET PO SCH (09:44)
[2017-12-05] MEDS: CHOLECALCIFEROL (VITAMIN D3) 1,000 UNIT TABLET (FP) PO SCH (09:45)
[2017-12-05] MEDS: MULTIVITAMINS (DAILY MVI) TABLET (FP) PO SCH (09:45)
[2017-12-05] MEDS: CYANOCOBALAMIN 1,000 MCG TABLET (FP) PO SCH (09:45)
--- NOTE | 2017-12-05 10:10 | PN ---
Progress Note, Physician Chief Complaint: Patient notes cramps in legs and hands, otherwise still gets coughing, but feeling better now than when he had come in to hospital. - Current Medication List Current Medications: Active Medications Acetaminophen (Tylenol -) 650 mg PO Q4H PRN PRN Reason: PAIN LEVEL 1-5 Atorvastatin Calcium (Lipitor -) 10 mg PO HS [facility] Last Admin: 12/04/17 21:44 Dose: 10 mg Cholecalciferol (Vitamin D3 -) 1,000 unit PO DAILY [facility] Last Admin: 12/05/17 09:45 Dose: 1,000 unit Cyanocobalamin (Vitamin B12 -) 1,000 mcg PO DAILY [facility] Last Admin: 12/05/17 09:45 Dose: 1,000 mcg Cyclobenzaprine HCl (Flexeril -) 5 mg PO HS PRN PRN Reason: MUSCLE SPASMS Diphenhydramine HCl (Benadryl Injection -) 12.5 mg IVPUSH Q4H PRN PRN Reason: SHIVERING Doxazosin Mesylate (Cardura -) 4 mg PO DAILY [facility] Last Admin: 12/05/17 09:44 Dose: 4 mg Furosemide (Lasix -) 40 mg PO DAILY [facility] Last Admin: 12/05/17 09:44 Dose: 40 mg Heparin Sodium (Porcine) (Heparin -) 5,000 unit SQ TID [facility] Last Admin: 12/05/17 06:10 Dose: 5,000 unit Hydralazine HCl (Apresoline -) 50 mg PO DAILY [facility] Last Admin: 12/05/17 09:44 Dose: 50 mg IV Flush (Triple Lumen Flush) 4 ml IVPUSH PRN PRN PRN Reason: Protocol Piperacillin Sod/Tazobactam (Sod 2.25 gm/ Dextrose) 50 mls @ 100 mls/hr IVPB Q8H-IV [facility] PRN Reason: Protocol Last Admin: 12/05/17 09:45 Dose: 100 mls/hr Insulin Aspart (Novolog Vial Sliding Scale -) 0 vial SQ ACHS [facility] PRN Reason: Protocol Last Admin: 12/05/17 06:12 Dose: 4 unit Insulin Detemir (Levemir Vial) 20 units SQ BID@0700,2200 [facility] Last Admin: 12/05/17 06:13 Dose: 20 unit Multivitamins/Minerals/Vitamin C (Tab-A-Vit -) 1 tab PO DAILY [facility] Last Admin: 12/05/17 09:45 Dose: 1 tab Ondansetron HCl (Zofran Injection) 4 mg IVPUSH Q6H PRN PRN Reason: NAUSEA Oxycodone HCl (Roxicodone -) 5 mg PO Q6H PRN PRN Reason: PAIN LEVEL 6-10 Sodium Bicarbonate (Sodium Bicarbonate -) 1,300 mg PO TID [facility] Last Admin: 12/05/17 06:10 Dose: 1,300 mg - Objective Vital Signs: Vital Signs Temperature 98.3 F 12/05/17 06:40 Pulse Rate 87 12/05/17 06:40 Respiratory Rate 20 12/05/17 06:40 Blood Pressure 126/87 12/05/17 06:40 O2 Sat by Pulse Oximetry (%) 97 12/03/17 21:00 Constitutional: Yes: No Distress, Calm Neck: Yes: Supple, Trachea Midline Cardiovascular: Yes: Regular Rate and Rhythm, S1, S2. No: Murmur Respiratory: Yes: Regular, CTA Bilaterally. No: Rales, Rhonchi, Wheezes Gastrointestinal: Yes: Normal Bowel Sounds, Soft, Abdomen, Obese, Other ( urostomy) Edema: Yes Edema: LLE: 2+, RLE: 2+ Neurological: Yes: Alert, Oriented Labs: CBC, BMP 12/05/17 06:00 12/05/17 06:00 INR, PTT INR 1.12 (0.82-1.09) 11/26/17 09:00 Assessment/Plan Current Active Problems Diarrhea (Acute) Spasms of the hands or feet (Acute) Urinary tract infection (Acute) Sepsis due to urinary source CRI/ diabetic nephropathy DM HTN HPL h/o Bladder cancer/ Urostomy placement PVD with bilateral LE edema COPD Osteoarthritis (spine, shoulder) -cont IV abx 2 more days -cont other meds, on increased insulin for elevated blood sugar -on muscle relaxants for spasms -will try warm compresses on neck as well
[2017-12-05 10:51] LABS: PLATELET ESTIMATE ADEQUATE
--- NOTE | 2017-12-05 11:28 | PN ---
Progress Note, Physician History of Present Illness: patient doing well no new issues says doing well - Current Medication List Current Medications: Active Medications Acetaminophen (Tylenol -) 650 mg PO Q4H PRN PRN Reason: PAIN LEVEL 1-5 Atorvastatin Calcium (Lipitor -) 10 mg PO HS [facility] Last Admin: 12/04/17 21:44 Dose: 10 mg Cholecalciferol (Vitamin D3 -) 1,000 unit PO DAILY [facility] Last Admin: 12/05/17 09:45 Dose: 1,000 unit Cyanocobalamin (Vitamin B12 -) 1,000 mcg PO DAILY [facility] Last Admin: 12/05/17 09:45 Dose: 1,000 mcg Cyclobenzaprine HCl (Flexeril -) 5 mg PO HS PRN PRN Reason: MUSCLE SPASMS Diphenhydramine HCl (Benadryl Injection -) 12.5 mg IVPUSH Q4H PRN PRN Reason: SHIVERING Doxazosin Mesylate (Cardura -) 4 mg PO DAILY [facility] Last Admin: 12/05/17 09:44 Dose: 4 mg Furosemide (Lasix -) 40 mg PO DAILY [facility] Last Admin: 12/05/17 09:44 Dose: 40 mg Heparin Sodium (Porcine) (Heparin -) 5,000 unit SQ TID [facility] Last Admin: 12/05/17 06:10 Dose: 5,000 unit Hydralazine HCl (Apresoline -) 50 mg PO DAILY [facility] Last Admin: 12/05/17 09:44 Dose: 50 mg IV Flush (Triple Lumen Flush) 4 ml IVPUSH PRN PRN PRN Reason: Protocol Piperacillin Sod/Tazobactam (Sod 2.25 gm/ Dextrose) 50 mls @ 100 mls/hr IVPB Q8H-IV [facility] PRN Reason: Protocol Last Admin: 12/05/17 09:45 Dose: 100 mls/hr Insulin Aspart (Novolog Vial Sliding Scale -) 0 vial SQ ACHS [facility] PRN Reason: Protocol Last Admin: 12/05/17 06:12 Dose: 4 unit Insulin Detemir (Levemir Vial) 20 units SQ BID@0700,2200 [facility] Last Admin: 12/05/17 06:13 Dose: 20 unit Multivitamins/Minerals/Vitamin C (Tab-A-Vit -) 1 tab PO DAILY [facility] Last Admin: 12/05/17 09:45 Dose: 1 tab Ondansetron HCl (Zofran Injection) 4 mg IVPUSH Q6H PRN PRN Reason: NAUSEA Oxycodone HCl (Roxicodone -) 5 mg PO Q6H PRN PRN Reason: PAIN LEVEL 6-10 Sodium Bicarbonate (Sodium Bicarbonate -) 1,300 mg PO TID [facility] Last Admin: 12/05/17 06:10 Dose: 1,300 mg - Objective Vital Signs: Vital Signs Temperature 98.1 F 12/05/17 08:55 Pulse Rate 69 12/05/17 08:55 Respiratory Rate 20 12/05/17 08:55 Blood Pressure 147/77 12/05/17 08:55 O2 Sat by Pulse Oximetry (%) 97 12/03/17 21:00 Constitutional: Yes: No Distress, Calm Cardiovascular: Yes: Regular Rate and Rhythm Respiratory: Yes: Regular, CTA Bilaterally Gastrointestinal: Yes: Normal Bowel Sounds, Soft, Other (urostomy bag in place) Musculoskeletal: Yes: WNL Extremities: Yes: WNL Wound/Incision: Yes: Clean/Dry Neurological: Yes: Alert, Oriented Psychiatric: Yes: Alert, Oriented Labs: CBC, BMP 12/05/17 06:00 12/05/17 06:00 INR, PTT INR 1.12 (0.82-1.09) 11/26/17 09:00 Assessment/Plan Problem List - Problems (1) Urinary tract infection Code(s): N39.0 - URINARY TRACT INFECTION, SITE NOT SPECIFIED Qualifiers: Urinary tract infection type: site unspecified Hematuria presence: with hematuria Qualified Code(s): N39.0 - Urinary tract infection, site not specified; R31.9 - Hematuria, unspecified; R31.9 - Hematuria, unspecified (2) ARF (acute renal failure) Code(s): N17.9 - ACUTE KIDNEY FAILURE, UNSPECIFIED Qualifiers: Acute renal failure type: unspecified Qualified Code(s): N17.9 - Acute kidney failure, unspecified (3) Anemia Code(s): D64.9 - ANEMIA, UNSPECIFIED (4) Bladder cancer Code(s): C67.9 - MALIGNANT NEOPLASM OF BLADDER, UNSPECIFIED (5) CVA (cerebral vascular accident) Code(s): I63.9 - CEREBRAL INFARCTION, UNSPECIFIED (6) Chronic kidney disease Code(s): N18.9 - CHRONIC KIDNEY DISEASE, UNSPECIFIED Qualifiers: Chronic kidney disease stage: stage 4 (severe) Qualified Code(s): N18.4 - Chronic kidney disease, stage 4 (severe) (7) Diabetes Code(s): E11.9 - TYPE 2 DIABETES MELLITUS WITHOUT COMPLICATIONS Qualifiers: Diabetes mellitus type: type 2 Diabetes mellitus termite inspector insulin use: with termite inspector use Diabetes mellitus complication status: with kidney complications Diabetes mellitus complication detail: with chronic kidney disease Chronic kidney disease stage: stage 4 (severe) Qualified Code(s): E11.22 - Type 2 diabetes mellitus with diabetic chronic kidney disease; N18.4 - Chronic kidney disease, stage 4 (severe); N18.4 - Chronic kidney disease, stage 4 (severe); N18.4 - Chronic kidney disease, stage 4 (severe); N18.4 - Chronic kidney disease, stage 4 (severe); Z79.4 - snf (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 of insulin; Z79.4 - snf (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 of insulin; Z79.4 - snf (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 of insulin; Z79.4 - snf (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 of insulin (8) H/O total cystectomy Code(s): Z98.89 - OTHER SPECIFIED POSTPROCEDURAL STATES * DO NOT USE * (9) Hypertension Code(s): I10 - ESSENTIAL (PRIMARY) HYPERTENSION Qualifiers: Hypertension type: essential hypertension Qualified Code(s): I10 - Essential (primary) hypertension (10) Leukocytosis Code(s): D72.829 - ELEVATED WHITE BLOOD CELL COUNT, UNSPECIFIED Qualifiers: Leukocytosis type: bandemia Qualified Code(s): D72.825 - Bandemia plan continue iv abx continue current mgmt watch for fevers rest as per the team patient improving complete the course patient doing well
[2017-12-05] MEDS ORDERED: INSULIN (NOVOLOG) ASPART 100 UNITS/ML 10ML VIAL ONE (11:57)
--- NOTE | 2017-12-05 12:34 | PN ---
Progress Note (short form) - Note Progress Note: Renal Follow up for CKD and Metabolic acidosis Pt seen and examined at the bedside no acute complaints leg cramping and pain improved no sob, chest pain leg swelling persists making urine tolerating diet Vital Signs Temperature 98.1 F 12/05/17 08:55 Pulse Rate 69 12/05/17 08:55 Respiratory Rate 20 12/05/17 08:55 Blood Pressure 147/77 12/05/17 08:55 O2 Sat by Pulse Oximetry (%) 97 12/03/17 21:00 Intake & Output 12/02/17 12/03/17 12/04/17 12/05/17 23:59 23:59 23:59 23:59 Intake Total 1200 1140 750 400 Output Total 3300 4100 4100 600 Balance -2100 -2960 -3350 -200 NAD awake and alert RRR, No M/R CTA no rales or wheeze soft NT/ND + edema CBC, BMP 12/05/17 06:00 12/05/17 06:00 Current Medications Acetaminophen (Tylenol -) 650 mg PO Q4H PRN PRN Reason: PAIN LEVEL 1-5 Atorvastatin Calcium (Lipitor -) 10 mg PO HS [facility] Last Admin: 12/04/17 21:44 Dose: 10 mg Cholecalciferol (Vitamin D3 -) 1,000 unit PO DAILY [facility] Last Admin: 12/05/17 09:45 Dose: 1,000 unit Cyanocobalamin (Vitamin B12 -) 1,000 mcg PO DAILY [facility] Last Admin: 12/05/17 09:45 Dose: 1,000 mcg Cyclobenzaprine HCl (Flexeril -) 5 mg PO HS PRN PRN Reason: MUSCLE SPASMS Diphenhydramine HCl (Benadryl Injection -) 12.5 mg IVPUSH Q4H PRN PRN Reason: SHIVERING Doxazosin Mesylate (Cardura -) 4 mg PO DAILY [facility] Last Admin: 12/05/17 09:44 Dose: 4 mg Furosemide (Lasix -) 40 mg PO DAILY [facility] Last Admin: 12/05/17 09:44 Dose: 40 mg Heparin Sodium (Porcine) (Heparin -) 5,000 unit SQ TID [facility] Last Admin: 12/05/17 06:10 Dose: 5,000 unit Hydralazine HCl (Apresoline -) 50 mg PO DAILY [facility] Last Admin: 12/05/17 09:44 Dose: 50 mg IV Flush (Triple Lumen Flush) 4 ml IVPUSH PRN PRN PRN Reason: Protocol Piperacillin Sod/Tazobactam (Sod 2.25 gm/ Dextrose) 50 mls @ 100 mls/hr IVPB Q8H-IV [facility] PRN Reason: Protocol Last Admin: 12/05/17 09:45 Dose: 100 mls/hr Insulin Aspart (Novolog Vial Sliding Scale -) 0 vial SQ ACHS [facility] PRN Reason: Protocol Last Admin: 12/05/17 12:03 Dose: 4 unit Insulin Detemir (Levemir Vial) 20 units SQ BID@0700,2200 [facility] Last Admin: 12/05/17 06:13 Dose: 20 unit Multivitamins/Minerals/Vitamin C (Tab-A-Vit -) 1 tab PO DAILY [facility] Last Admin: 12/05/17 09:45 Dose: 1 tab Ondansetron HCl (Zofran Injection) 4 mg IVPUSH Q6H PRN PRN Reason: NAUSEA Oxycodone HCl (Roxicodone -) 5 mg PO Q6H PRN PRN Reason: PAIN LEVEL 6-10 Sodium Bicarbonate (Sodium Bicarbonate -) 1,300 mg PO TID [facility] Last Admin: 12/05/17 06:10 Dose: 1,300 mg 66 year old gentleman with PMhx of Urethral Diversion, CKD Stage 4, COPD, Hypertension, DM, Hyperlipidemia presented to the ED with complaints of tremors and shaking and found to have Cr of 2.9 and Bicarb of 13. #CKD Stage 4 #Non-anion gap metabolic acidosis with respiratory compensation #Complicated UTI Cr slowly trending up however pt with LE edema will continue Lasix for now no diarrhea as per pt as another source of volume loss continue soidum bicarb Trend BUN/Cr continue Abx as per Primary/ID Freddie Forbes DO
[2017-12-05] MEDS: ATORVASTATIN CA 10 MG TABLET (FP) PO SCH (21:19)
[2017-12-06] MEDS ORDERED: PIPERACILLIN/TAZOBACTAM 2.25 GM VIAL IVPB ONE ×3 (00:03→17:01)
[2017-12-06] MEDS ORDERED: DEXTROSE 5%-WATER - 50 ML IVPB ONE ×3 (00:04→17:01)
[2017-12-06] MEDS: PIPERACILLIN/TAZOB 2.25 GM 2.25 GM in DEXTROSE 5%-WATER - 50 ML IVPB SCH ×3 (01:30→17:12)
[2017-12-06] MEDS: SODIUM BICARBONATE 650 MG TABLET PO SCH ×3 (05:46→21:49)
[2017-12-06] MEDS: HEPARIN NA (PORCINE) 5,000 UNITS/ML 1ML VIAL SQ SCH ×3 (05:46→21:51)
[2017-12-06] MEDS: INSULIN (LEVEMIR) 100 UNITS/ML UNITS SQ SCH ×2 (06:15→21:53)
[2017-12-06] MEDS: INSULIN SLIDING SCALE (NOVOLOG) 1 VIAL SQ SCH ×4 (06:17→21:50)
[2017-12-06 08:47] LABS: ALBUMIN 3.4 g/dl (3.4-5.0); ALK PHOS 55 U/L (45-117); ANION GAP 8 (8-16); BILIRUBIN,TOTAL 0.4 mg/dL (0.2-1.0); BLOOD UREA NITROGEN 41 mg/dL (7-18); CALCIUM 9.4 mg/dL (8.5-10.1); CHLORIDE 109 mmol/L (98-107); CO2 21 mmol/L (21-32); CREATININE 2.9 mg/dL (0.7-1.3); GLUCOSE,RANDOM 200 mg/dL (74-106); POTASSIUM 4.8 mmol/L (3.5-5.1); SGOT/AST 33 U/L (15-37); SGPT/ALT 78 U/L (12-78); SODIUM 138 mmol/L (136-145); TOT PROT 7.2 g/dl (6.4-8.2)
[2017-12-06 08:49] LABS: HEMATOCRIT 36.5 % (35.4-49); HEMOGLOBIN 12.1 GM/dL (11.7-16.9); MCH 27.2 pg (25.7-33.7); MCHC 33.2 g/dl (32.0-35.9); MEAN CELL VOLUME 81.9 fl (80-96); MEAN PLT VOLUME 8.1 fl (7.5-11.1); PLATELET COUNT 320 K/MM3 (134-434); RBC 4.45 M/mm3 (4.00-5.60); RDW 15.3 % (11.9-15.9); WHITE BLOOD COUNT 7.1 K/mm3 (4.0-10.0)
[2017-12-06] MEDS ORDERED: PT OWN MED DRAWER 7, Y5N ONE (09:23)
[2017-12-06] MEDS: FUROSEMIDE 40 MG TABLET (FP) PO SCH (09:26)
[2017-12-06] MEDS: MULTIVITAMINS (DAILY MVI) TABLET (FP) PO SCH (09:26)
[2017-12-06] MEDS: DOXAZOSIN MESYLATE 4 MG TABLET PO SCH (09:26)
[2017-12-06] MEDS: hydrALAZINE HCL 50 MG TABLET (FP) PO SCH (09:26)
[2017-12-06] MEDS: CYANOCOBALAMIN 1,000 MCG TABLET (FP) PO SCH (09:27)
[2017-12-06] MEDS: CHOLECALCIFEROL (VITAMIN D3) 1,000 UNIT TABLET (FP) PO SCH (09:27)
--- NOTE | 2017-12-06 10:10 | PN ---
Progress Note, Physician History of Present Illness: Patient still getting chills at times (like this morning) with no fevers noted. Otherwise cramps improved overnight that he was getting in hands and legs. - Current Medication List Current Medications: Active Medications Acetaminophen (Tylenol -) 650 mg PO Q4H PRN PRN Reason: PAIN LEVEL 1-5 Atorvastatin Calcium (Lipitor -) 10 mg PO HS [facility] Last Admin: 12/05/17 21:19 Dose: 10 mg Cholecalciferol (Vitamin D3 -) 1,000 unit PO DAILY [facility] Last Admin: 12/06/17 09:27 Dose: 1,000 unit Cyanocobalamin (Vitamin B12 -) 1,000 mcg PO DAILY [facility] Last Admin: 12/06/17 09:27 Dose: 1,000 mcg Cyclobenzaprine HCl (Flexeril -) 5 mg PO HS PRN PRN Reason: MUSCLE SPASMS Diphenhydramine HCl (Benadryl Injection -) 12.5 mg IVPUSH Q4H PRN PRN Reason: SHIVERING Doxazosin Mesylate (Cardura -) 4 mg PO DAILY [facility] Last Admin: 12/06/17 09:26 Dose: 4 mg Furosemide (Lasix -) 40 mg PO DAILY [facility] Last Admin: 12/06/17 09:26 Dose: 40 mg Heparin Sodium (Porcine) (Heparin -) 5,000 unit SQ TID [facility] Last Admin: 12/06/17 05:46 Dose: 5,000 unit Hydralazine HCl (Apresoline -) 50 mg PO DAILY [facility] Last Admin: 12/06/17 09:26 Dose: 50 mg IV Flush (Triple Lumen Flush) 4 ml IVPUSH PRN PRN PRN Reason: Protocol Piperacillin Sod/Tazobactam (Sod 2.25 gm/ Dextrose) 50 mls @ 100 mls/hr IVPB Q8H-IV [facility] PRN Reason: Protocol Last Admin: 12/06/17 09:27 Dose: 100 mls/hr Insulin Aspart (Novolog Vial Sliding Scale -) 0 vial SQ ACHS [facility] PRN Reason: Protocol Last Admin: 12/06/17 06:17 Dose: 4 unit Insulin Detemir (Levemir Vial) 20 units SQ BID@0700,2200 [facility] Last Admin: 12/06/17 06:15 Dose: 20 unit Multivitamins/Minerals/Vitamin C (Tab-A-Vit -) 1 tab PO DAILY [facility] Last Admin: 12/06/17 09:26 Dose: 1 tab Ondansetron HCl (Zofran Injection) 4 mg IVPUSH Q6H PRN PRN Reason: NAUSEA Oxycodone HCl (Roxicodone -) 5 mg PO Q6H PRN PRN Reason: PAIN LEVEL 6-10 Sodium Bicarbonate (Sodium Bicarbonate -) 1,300 mg PO TID [facility] Last Admin: 12/06/17 05:46 Dose: 1,300 mg - Objective Vital Signs: Vital Signs Temperature 97.8 F 12/06/17 06:45 Pulse Rate 82 12/06/17 06:45 Respiratory Rate 20 12/06/17 06:45 Blood Pressure 142/79 12/06/17 06:45 O2 Sat by Pulse Oximetry (%) 98 12/05/17 21:00 Constitutional: Yes: No Distress, Calm Eyes: Yes: Conjunctiva Clear, EOM Intact HENT: Yes: Atraumatic, Normocephalic Neck: Yes: Supple, Trachea Midline Cardiovascular: Yes: Regular Rate and Rhythm, S1, S2. No: Murmur, Rub Respiratory: Yes: Regular, CTA Bilaterally. No: Rales, Rhonchi, Wheezes Gastrointestinal: Yes: Normal Bowel Sounds, Soft, Other (urostomy). No: Distention, Tenderness Edema: Yes Edema: LLE: 2+, RLE: 2+ Neurological: Yes: Alert, Oriented Labs: CBC, BMP 12/06/17 07:30 12/06/17 07:30 INR, PTT INR 1.12 (0.82-1.09) 11/26/17 09:00 Assessment/Plan Current Active Problems Diarrhea (Acute) Spasms of the hands or feet (Acute) Urinary tract infection (Acute) Sepsis due to urinary source CRI/ diabetic nephropathy DM HTN HPL h/o Bladder cancer/ Urostomy placement PVD with bilateral LE edema COPD Osteoarthritis (spine, shoulder) -cont current treatment -reviewed with patient that "chills" may be related to his kidney (azotemia), as appears to be clearing his infection
[2017-12-06 10:42] LABS: ANISOCYTOSIS 1+; PLATELET ESTIMATE NORMAL
--- NOTE | 2017-12-06 10:48 | PN ---
Progress Note, Physician History of Present Illness: patient stable doing well no issues - Current Medication List Current Medications: Active Medications Acetaminophen (Tylenol -) 650 mg PO Q4H PRN PRN Reason: PAIN LEVEL 1-5 Atorvastatin Calcium (Lipitor -) 10 mg PO HS [facility] Last Admin: 12/05/17 21:19 Dose: 10 mg Cholecalciferol (Vitamin D3 -) 1,000 unit PO DAILY [facility] Last Admin: 12/06/17 09:27 Dose: 1,000 unit Cyanocobalamin (Vitamin B12 -) 1,000 mcg PO DAILY [facility] Last Admin: 12/06/17 09:27 Dose: 1,000 mcg Cyclobenzaprine HCl (Flexeril -) 5 mg PO HS PRN PRN Reason: MUSCLE SPASMS Diphenhydramine HCl (Benadryl Injection -) 12.5 mg IVPUSH Q4H PRN PRN Reason: SHIVERING Doxazosin Mesylate (Cardura -) 4 mg PO DAILY [facility] Last Admin: 12/06/17 09:26 Dose: 4 mg Furosemide (Lasix -) 40 mg PO DAILY [facility] Last Admin: 12/06/17 09:26 Dose: 40 mg Heparin Sodium (Porcine) (Heparin -) 5,000 unit SQ TID [facility] Last Admin: 12/06/17 05:46 Dose: 5,000 unit Hydralazine HCl (Apresoline -) 50 mg PO DAILY [facility] Last Admin: 12/06/17 09:26 Dose: 50 mg IV Flush (Triple Lumen Flush) 4 ml IVPUSH PRN PRN PRN Reason: Protocol Piperacillin Sod/Tazobactam (Sod 2.25 gm/ Dextrose) 50 mls @ 100 mls/hr IVPB Q8H-IV [facility] PRN Reason: Protocol Last Admin: 12/06/17 09:27 Dose: 100 mls/hr Insulin Aspart (Novolog Vial Sliding Scale -) 0 vial SQ ACHS [facility] PRN Reason: Protocol Last Admin: 12/06/17 06:17 Dose: 4 unit Insulin Detemir (Levemir Vial) 20 units SQ BID@0700,2200 [facility] Last Admin: 12/06/17 06:15 Dose: 20 unit Multivitamins/Minerals/Vitamin C (Tab-A-Vit -) 1 tab PO DAILY [facility] Last Admin: 12/06/17 09:26 Dose: 1 tab Ondansetron HCl (Zofran Injection) 4 mg IVPUSH Q6H PRN PRN Reason: NAUSEA Oxycodone HCl (Roxicodone -) 5 mg PO Q6H PRN PRN Reason: PAIN LEVEL 6-10 Sodium Bicarbonate (Sodium Bicarbonate -) 1,300 mg PO TID [facility] Last Admin: 12/06/17 05:46 Dose: 1,300 mg - Objective Vital Signs: Vital Signs Temperature 97.8 F 12/06/17 06:45 Pulse Rate 82 12/06/17 06:45 Respiratory Rate 20 12/06/17 06:45 Blood Pressure 142/79 12/06/17 06:45 O2 Sat by Pulse Oximetry (%) 98 12/05/17 21:00 Constitutional: Yes: No Distress, Calm Cardiovascular: Yes: Regular Rate and Rhythm Respiratory: Yes: Regular, CTA Bilaterally Gastrointestinal: Yes: Normal Bowel Sounds, Soft, Other (urostomy working well) Musculoskeletal: Yes: WNL Extremities: Yes: WNL Neurological: Yes: Alert, Oriented Psychiatric: Yes: Alert, Oriented Labs: CBC, BMP 12/06/17 07:30 12/06/17 07:30 INR, PTT INR 1.12 (0.82-1.09) 11/26/17 09:00 Assessment/Plan Problem List - Problems (1) Urinary tract infection Code(s): N39.0 - URINARY TRACT INFECTION, SITE NOT SPECIFIED Qualifiers: Urinary tract infection type: site unspecified Hematuria presence: with hematuria Qualified Code(s): N39.0 - Urinary tract infection, site not specified; R31.9 - Hematuria, unspecified; R31.9 - Hematuria, unspecified (2) ARF (acute renal failure) Code(s): N17.9 - ACUTE KIDNEY FAILURE, UNSPECIFIED Qualifiers: Acute renal failure type: unspecified Qualified Code(s): N17.9 - Acute kidney failure, unspecified (3) Anemia Code(s): D64.9 - ANEMIA, UNSPECIFIED (4) Bladder cancer Code(s): C67.9 - MALIGNANT NEOPLASM OF BLADDER, UNSPECIFIED (5) CVA (cerebral vascular accident) Code(s): I63.9 - CEREBRAL INFARCTION, UNSPECIFIED (6) Chronic kidney disease Code(s): N18.9 - CHRONIC KIDNEY DISEASE, UNSPECIFIED Qualifiers: Chronic kidney disease stage: stage 4 (severe) Qualified Code(s): N18.4 - Chronic kidney disease, stage 4 (severe) (7) Diabetes Code(s): E11.9 - TYPE 2 DIABETES MELLITUS WITHOUT COMPLICATIONS Qualifiers: Diabetes mellitus type: type 2 Diabetes mellitus penitentiary insulin use: with penitentiary use Diabetes mellitus complication status: with kidney complications Diabetes mellitus complication detail: with chronic kidney disease Chronic kidney disease stage: stage 4 (severe) Qualified Code(s): E11.22 - Type 2 diabetes mellitus with diabetic chronic kidney disease; N18.4 - Chronic kidney disease, stage 4 (severe); N18.4 - Chronic kidney disease, stage 4 (severe); N18.4 - Chronic kidney disease, stage 4 (severe); N18.4 - Chronic kidney disease, stage 4 (severe); Z79.4 - halfway (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 of insulin; Z79.4 - halfway (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 of insulin; Z79.4 - halfway (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 of insulin; Z79.4 - keno terminal operator (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 of insulin (8) H/O total cystectomy Code(s): Z98.89 - OTHER SPECIFIED POSTPROCEDURAL STATES * DO NOT USE * (9) Hypertension Code(s): I10 - ESSENTIAL (PRIMARY) HYPERTENSION Qualifiers: Hypertension type: essential hypertension Qualified Code(s): I10 - Essential (primary) hypertension (10) Leukocytosis Code(s): D72.829 - ELEVATED WHITE BLOOD CELL COUNT, UNSPECIFIED Qualifiers: Leukocytosis type: bandemia Qualified Code(s): D72.825 - Bandemia plan continue iv abx complete the course
[2017-12-06] MEDS ORDERED: INSULIN (NOVOLOG) ASPART 100 UNITS/ML 10ML VIAL ONE (12:00)
[2017-12-06] MEDS: ATORVASTATIN CA 10 MG TABLET (FP) PO SCH (21:49)
[2017-12-07] MEDS ORDERED: PIPERACILLIN/TAZOBACTAM 2.25 GM VIAL IVPB ONE ×2 (00:22→10:21)
[2017-12-07] MEDS ORDERED: DEXTROSE 5%-WATER - 50 ML IVPB ONE ×2 (00:22→10:21)
[2017-12-07] MEDS: PIPERACILLIN/TAZOB 2.25 GM 2.25 GM in DEXTROSE 5%-WATER - 50 ML IVPB SCH ×2 (01:44→10:27)
[2017-12-07] MEDS: SODIUM BICARBONATE 650 MG TABLET PO SCH ×2 (05:52→14:39)
[2017-12-07] MEDS: HEPARIN NA (PORCINE) 5,000 UNITS/ML 1ML VIAL SQ SCH ×2 (05:52→14:37)
[2017-12-07] MEDS: INSULIN SLIDING SCALE (NOVOLOG) 1 VIAL SQ SCH ×2 (06:01→12:43)
[2017-12-07] MEDS: INSULIN (LEVEMIR) 100 UNITS/ML UNITS SQ SCH (06:01)
[2017-12-07 07:43] LABS: BASO % 0.6 % (0-2.0); EOS % 8.4 % (0-4.5); HEMATOCRIT 35.2 % (35.4-49); HEMOGLOBIN 11.8 GM/dL (11.7-16.9); LYMPH % 18.7 % (8-40); MCH 27.6 pg (25.7-33.7); MCHC 33.6 g/dl (32.0-35.9); MEAN CELL VOLUME 82.3 fl (80-96); MEAN PLT VOLUME 8.1 fl (7.5-11.1); MONO % 7.7 % (3.8-10.2); NEUT % 64.6 % (42.8-82.8); PLATELET COUNT 332 K/MM3 (134-434); RBC 4.27 M/mm3 (4.00-5.60); RDW 15.5 % (11.9-15.9); WHITE BLOOD COUNT 7.3 K/mm3 (4.0-10.0)
[2017-12-07 08:11] LABS: ALBUMIN 3.4 g/dl (3.4-5.0); ANION GAP 8 (8-16); BLOOD UREA NITROGEN 45 mg/dL (7-18); CALCIUM 9.3 mg/dL (8.5-10.1); CHLORIDE 108 mmol/L (98-107); CO2 20 mmol/L (21-32); CREATININE 2.9 mg/dL (0.7-1.3); GLUCOSE,RANDOM 196 mg/dL (74-106); POTASSIUM 4.9 mmol/L (3.5-5.1); SGOT/AST 26 U/L (15-37); SGPT/ALT 71 U/L (12-78); SODIUM 136 mmol/L (136-145)
[2017-12-07 08:13] LABS: ALK PHOS 56 U/L (45-117); BILIRUBIN,TOTAL 0.4 mg/dL (0.2-1.0); TOT PROT 7.4 g/dl (6.4-8.2)
[2017-12-07] MEDS ORDERED: PT OWN MED DRAWER 7, Y5N ONE (10:21)
[2017-12-07] MEDS: hydrALAZINE HCL 50 MG TABLET (FP) PO SCH (10:27)
[2017-12-07] MEDS: MULTIVITAMINS (DAILY MVI) TABLET (FP) PO SCH (10:27)
[2017-12-07] MEDS: CYANOCOBALAMIN 1,000 MCG TABLET (FP) PO SCH (10:27)
[2017-12-07] MEDS: FUROSEMIDE 40 MG TABLET (FP) PO SCH (10:27)
[2017-12-07] MEDS: CHOLECALCIFEROL (VITAMIN D3) 1,000 UNIT TABLET (FP) PO SCH (10:27)
[2017-12-07] MEDS ORDERED: DOXAZOSIN MESYLATE 4 MG TABLET PO SCH (10:49)
[2017-12-07] MEDS: DOXAZOSIN MESYLATE 4 MG TABLET PO SCH (11:09)
--- NOTE | 2017-12-07 13:58 | PN ---
Progress Note, Physician History of Present Illness: doing well no complaints no issues - Current Medication List Current Medications: Active Medications Acetaminophen (Tylenol -) 650 mg PO Q4H PRN PRN Reason: PAIN LEVEL 1-5 Atorvastatin Calcium (Lipitor -) 10 mg PO HS [facility] Last Admin: 12/06/17 21:49 Dose: 10 mg Cholecalciferol (Vitamin D3 -) 1,000 unit PO DAILY [facility] Last Admin: 12/07/17 10:27 Dose: 1,000 unit Cyanocobalamin (Vitamin B12 -) 1,000 mcg PO DAILY [facility] Last Admin: 12/07/17 10:27 Dose: 1,000 mcg Cyclobenzaprine HCl (Flexeril -) 5 mg PO HS PRN PRN Reason: MUSCLE SPASMS Diphenhydramine HCl (Benadryl Injection -) 12.5 mg IVPUSH Q4H PRN PRN Reason: SHIVERING Doxazosin Mesylate (Cardura -) 4 mg PO HS [facility] Furosemide (Lasix -) 40 mg PO DAILY [facility] Last Admin: 12/07/17 10:27 Dose: 40 mg Heparin Sodium (Porcine) (Heparin -) 5,000 unit SQ TID [facility] Last Admin: 12/07/17 05:52 Dose: 5,000 unit Hydralazine HCl (Apresoline -) 50 mg PO DAILY [facility] Last Admin: 12/07/17 10:27 Dose: 50 mg IV Flush (Triple Lumen Flush) 4 ml IVPUSH PRN PRN PRN Reason: Protocol Piperacillin Sod/Tazobactam (Sod 2.25 gm/ Dextrose) 50 mls @ 100 mls/hr IVPB Q8H-IV [facility] PRN Reason: Protocol Last Admin: 12/07/17 10:27 Dose: 100 mls/hr Insulin Aspart (Novolog Vial Sliding Scale -) 0 vial SQ ACHS [facility] PRN Reason: Protocol Last Admin: 12/07/17 12:43 Dose: 4 unit Insulin Detemir (Levemir Vial) 20 units SQ BID@0700,2200 [facility] Last Admin: 12/07/17 06:01 Dose: 20 unit Multivitamins/Minerals/Vitamin C (Tab-A-Vit -) 1 tab PO DAILY [facility] Last Admin: 12/07/17 10:27 Dose: 1 tab Ondansetron HCl (Zofran Injection) 4 mg IVPUSH Q6H PRN PRN Reason: NAUSEA Oxycodone HCl (Roxicodone -) 5 mg PO Q6H PRN PRN Reason: PAIN LEVEL 6-10 Sodium Bicarbonate (Sodium Bicarbonate -) 1,300 mg PO TID [facility] Last Admin: 12/07/17 05:52 Dose: 1,300 mg - Objective Vital Signs: Vital Signs Temperature 98.2 F 12/07/17 06:33 Pulse Rate 82 12/07/17 06:33 Respiratory Rate 20 12/07/17 06:33 Blood Pressure 140/94 12/07/17 06:33 O2 Sat by Pulse Oximetry (%) 98 12/06/17 21:00 Constitutional: Yes: No Distress, Calm, Obese Cardiovascular: Yes: Regular Rate and Rhythm Respiratory: Yes: Regular, CTA Bilaterally Gastrointestinal: Yes: Normal Bowel Sounds, Soft, Other (urostomy bag in place) Musculoskeletal: Yes: WNL Extremities: Yes: WNL Neurological: Yes: Alert, Oriented Psychiatric: Yes: Alert, Oriented Labs: CBC, BMP 12/07/17 06:15 12/07/17 06:15 INR, PTT INR 1.12 (0.82-1.09) 11/26/17 09:00 Assessment/Plan Problem List - Problems (1) Urinary tract infection Code(s): N39.0 - URINARY TRACT INFECTION, SITE NOT SPECIFIED Qualifiers: Urinary tract infection type: site unspecified Hematuria presence: with hematuria Qualified Code(s): N39.0 - Urinary tract infection, site not specified; R31.9 - Hematuria, unspecified; R31.9 - Hematuria, unspecified (2) ARF (acute renal failure) Code(s): N17.9 - ACUTE KIDNEY FAILURE, UNSPECIFIED Qualifiers: Acute renal failure type: unspecified Qualified Code(s): N17.9 - Acute kidney failure, unspecified (3) Anemia Code(s): D64.9 - ANEMIA, UNSPECIFIED (4) Bladder cancer Code(s): C67.9 - MALIGNANT NEOPLASM OF BLADDER, UNSPECIFIED (5) CVA (cerebral vascular accident) Code(s): I63.9 - CEREBRAL INFARCTION, UNSPECIFIED (6) Chronic kidney disease Code(s): N18.9 - CHRONIC KIDNEY DISEASE, UNSPECIFIED Qualifiers: Chronic kidney disease stage: stage 4 (severe) Qualified Code(s): N18.4 - Chronic kidney disease, stage 4 (severe) (7) Diabetes Code(s): E11.9 - TYPE 2 DIABETES MELLITUS WITHOUT COMPLICATIONS Qualifiers: Diabetes mellitus type: type 2 Diabetes mellitus fci insulin use: with fci use Diabetes mellitus complication status: with kidney complications Diabetes mellitus complication detail: with chronic kidney disease Chronic kidney disease stage: stage 4 (severe) Qualified Code(s): E11.22 - Type 2 diabetes mellitus with diabetic chronic kidney disease; N18.4 - Chronic kidney disease, stage 4 (severe); N18.4 - Chronic kidney disease, stage 4 (severe); N18.4 - Chronic kidney disease, stage 4 (severe); N18.4 - Chronic kidney disease, stage 4 (severe); 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; Z79.4 - USP (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 of insulin; 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; Z79.4 - USP (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 of insulin (8) H/O total cystectomy Code(s): Z98.89 - OTHER SPECIFIED POSTPROCEDURAL STATES * DO NOT USE * (9) Hypertension Code(s): I10 - ESSENTIAL (PRIMARY) HYPERTENSION Qualifiers: Hypertension type: essential hypertension Qualified Code(s): I10 - Essential (primary) hypertension (10) Leukocytosis Code(s): D72.829 - ELEVATED WHITE BLOOD CELL COUNT, UNSPECIFIED Qualifiers: Leukocytosis type: bandemia Qualified Code(s): D72.825 - Bandemia plan patient doing well completed the course rest continue current mgmt follow up rest as per the team
--- NOTE | 2017-12-07 14:31 | DS ---
Physical Examination Vital Signs: Vital Signs Temperature 36.8 C 12/07/17 06:33 Pulse Rate 82 12/07/17 06:33 Respiratory Rate 20 12/07/17 06:33 Blood Pressure 140/94 12/07/17 06:33 O2 Sat by Pulse Oximetry (%) 98 12/06/17 21:00 Constitutional: Yes: No Distress, Calm, Obese Cardiovascular: Yes: Regular Rate and Rhythm. No: Gallop, Murmur, Rub Respiratory: Yes: Regular, CTA Bilaterally. No: Rales, Rhonchi, Wheezes Gastrointestinal: Yes: Normal Bowel Sounds, Soft. No: Distention, Tenderness Extremities: Yes: WNL Edema: No Labs: CBC, BMP 12/07/17 06:15 12/07/17 06:15 Discharge Summary Reason For Visit: UTI Current Active Problems Diarrhea (Acute) Spasms of the hands or feet (Acute) Urinary tract infection (Acute) Hospital Course: (1) Urinary tract infection Code(s): N39.0 - URINARY TRACT INFECTION, SITE NOT SPECIFIED Qualifiers: Urinary tract infection type: site unspecified Hematuria presence: with hematuria Qualified Code(s): N39.0 - Urinary tract infection, site not specified; R31.9 - Hematuria, unspecified; R31.9 - Hematuria, unspecified (2) Sepsis Code(s): A41.9 - SEPSIS, UNSPECIFIED ORGANISM (3) Metabolic acidosis Code(s): E87.2 - ACIDOSIS (4) Chronic kidney disease Code(s): N18.9 - CHRONIC KIDNEY DISEASE, UNSPECIFIED Qualifiers: Chronic kidney disease stage: stage 4 (severe) Qualified Code(s): N18.4 - Chronic kidney disease, stage 4 (severe) (5) Diabetes Code(s): E11.9 - TYPE 2 DIABETES MELLITUS WITHOUT COMPLICATIONS Qualifiers: Diabetes mellitus type: type 2 Diabetes mellitus sales merchandise associate insulin use: with sales merchandise associate use Diabetes mellitus complication status: with kidney complications Diabetes mellitus complication detail: with chronic kidney disease Chronic kidney disease stage: stage 4 (severe) Qualified Code(s): E11.22 - Type 2 diabetes mellitus with diabetic chronic kidney disease; N18.4 - Chronic kidney disease, stage 4 (severe); N18.4 - Chronic kidney disease, stage 4 (severe); N18.4 - Chronic kidney disease, stage 4 (severe); N18.4 - Chronic kidney disease, stage 4 (severe); 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.4 - indirect 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 infantryman (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 of insulin; Z79.4 - retirement (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 of insulin; Z79.4 - retirement (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 of insulin; Z79.4 - retirement (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 of insulin (6) HLD (hyperlipidemia) Code(s): E78.5 - HYPERLIPIDEMIA, UNSPECIFIED (7) Hypertension Code(s): I10 - ESSENTIAL (PRIMARY) HYPERTENSION Qualifiers: Hypertension type: essential hypertension Qualified Code(s): I10 - Essential (primary) hypertension (8) Diarrhea Code(s): R19.7 - DIARRHEA, UNSPECIFIED Qualifiers: Diarrhea type: unspecified type Qualified Code(s): R19.7 - Diarrhea, unspecified Mr Isaacs is a very pleasant 66 year old male who came in with sepsis secondary to UTI. He was admitted to the hospital and seen by ID. He was placed on zosyn and finished a full course. He was seen by nephrology considering his acute worsening of chronic metabolic acidosis. He was originally started on a bicarb gtt that was changed to oral bicarbonate. This was increased to tid. He had complaints of muscle spasms in the evening, will trial prn flexeril at night. He is currently much improved and is safe for discharge home. 32 minutes spent in preparation of this discharge Condition: Good - Instructions Diet, Activity, Other Instructions: resume previous diet and activity Referrals: Umang Howard MD [Primary Care Provider] - Freddie Forbes MD [Staff Physician] - Disposition: HOME - Home Medications Comprehensive Discharge Medication List: Ambulatory Orders Atorvastatin Ca [Lipitor] 10 mg PO DAILY 06/07/17 Cholecalciferol (Vitamin D3) [Vitamin D3] 1,000 unit PO DAILY 06/07/17 Cyanocobalamin [Vitamin B12 -] 1,000 mcg PO DAILY 06/07/17 Doxazosin Mesylate [Cardura -] 4 mg PO HS 06/07/17 Furosemide [Lasix -] 40 mg PO DAILY 06/07/17 Multivitamin [One Daily] 1 each PO DAILY 06/07/17 hydrALAZINE HCL [Apresoline -] 50 mg PO DAILY 06/07/17 Insulin Detemir [Levemir Flextouch] 15 unit SQ HS 04/19/18 Insulin Regular, Human [Humulin R U-500 Kwikpen] 0 unit SQ ACBK 11/05/17 Multivitamin [One Daily] 1 each PO DAILY 11/05/17 Cyclobenzaprine HCl [Flexeril -] 5 mg PO HS PRN #30 tablet 12/07/17 Sodium Bicarbonate - 1,300 mg PO TID #90 tablet 12/07/17
[2017-12-07 15:35] VITALS: BP 131/75; PULSE 75; TEMP 98.8
--- NOTE | 2017-12-07 17:54 | PN ---
Progress Note (short form) - Note Progress Note: Renal Follow up for CKD and Metabolic acidosis Pt seen and examined at the bedside no acute complaints for discharge home today making urine no fevers or chills Vital Signs Temperature 98.8 F 12/07/17 10:00 Pulse Rate 75 12/07/17 10:00 Respiratory Rate 20 12/07/17 10:00 Blood Pressure 131/75 12/07/17 10:00 O2 Sat by Pulse Oximetry (%) 96 12/07/17 09:00 Intake & Output 12/04/17 12/05/17 12/06/17 12/07/17 23:59 23:59 23:59 23:59 Intake Total 750 900 150 300 Output Total 4100 3950 3400 Balance -3350 -3050 -3250 300 NAD awake and alert RRR, No M/R CTA no rales or wheeze soft NT/ND + edema 66 year old gentleman with PMhx of Urethral Diversion, CKD Stage 4, COPD, Hypertension, DM, Hyperlipidemia presented to the ED with complaints of tremors and shaking and found to have Cr of 2.9 and Bicarb of 13. #CKD Stage 4 #Non-anion gap metabolic acidosis with respiratory compensation #Complicated UTI stable for discharge renal function stable to continue sodium bicarb 1300mg TID at home to follow up with Dr. Kirkland in 1-2 weeks Freddie Forbes DO
== END 2017-12-07 14:54 | disposition home or self-care (01) | DRG 872 ==
LOC: JER 07:54 → JERBED 11:42 → J8W 11-27 16:18
PROVIDERS: ADMIT Internal Medicine; ATTEND Internal Medicine
DX: A41.9 Sepsis, unspecified organism (principal); N39.0 Urinary tract infection, site not specified; E87.2 Acidosis; N18.4 Chronic kidney disease, stage 4 (severe); Z68.43 Body mass index [BMI] 50.0-59.9, adult; N17.9 Acute kidney failure, unspecified; E78.5 Hyperlipidemia, unspecified; E11.9 Type 2 diabetes mellitus without complications; I12.9 Hypertensive chronic kidney disease with stage 1 through stage 4 chronic kidney disease, or unspecified chronic kidney disease; E11.22 Type 2 diabetes mellitus with diabetic chronic kidney disease; R19.7 Diarrhea, unspecified; J44.9 Chronic obstructive pulmonary disease, unspecified; E11.21 Type 2 diabetes mellitus with diabetic nephropathy; M19.90 Unspecified osteoarthritis, unspecified site; E66.01 Morbid (severe) obesity due to excess calories; Z86.73 Personal history of transient ischemic attack (TIA), and cerebral infarction without residual deficits; D72.829 Elevated white blood cell count, unspecified
CPT/HCPCS: 36415; 71045-TC-FY; 80048; 80053; 81003; 81015; 82550; 82553; 82803; 82962; 83605; 83735; 84100; 84484; 85025; 85027; 85610; 85730; 87040; 87086; 87186; 93005; 93010; 97116-GP; 97161-GP; 99285-25; J1644; J7030

== ENCOUNTER 2018-06-18 13:27 | Inpatient (IN) | payer OTHER ==
--- NOTE | 2018-06-18 13:49 | PDOC ---
History of Present Illness - General Chief Complaint: Chest Pain Stated Complaint: CHEST PAIN Time Seen by Provider: 06/18/18 13:49 History Source: Patient Exam Limitations: No Limitations - History of Present Illness Initial Comments: 06/18/18 14:19 67 year old male with PMH HTN, DM, CHF, TIA (1-2years ago), COPD, bladder CA (s/ p total cystectomy w/ urostomy formation 2014), CKD sent to ED by PCP Dr. Howard for chest pain/SOB x3 days. Per pt his chest pain is substernal, pleuritic, tight/squeeze, aggravated by breathing/moving/exertion, no alleviating factors, non radiating. He admitted to increased LLE swelling over the last week. He denied travel>5 hours, bed rest>3 days, hx DVT/PE, hemoptysis, active CA <6 months, surgery<4 weeks. He denied fever, chills, cough, nausea, vomiting, diarrhea, abdominal pain. Past History - Past Medical History Allergies/Adverse Reactions: Allergies Allergy/AdvReac Type Severity Reaction Status Date / Time shrimp Allergy Intermediate Vomiting Verified 06/18/18 13:30 Home Medications: Ambulatory Orders Atorvastatin Ca [Lipitor] 10 mg PO DAILY 06/07/17 Cholecalciferol (Vitamin D3) [Vitamin D3] 1,000 unit PO DAILY 06/07/17 Cyanocobalamin [Vitamin B12 -] 1,000 mcg PO DAILY 06/07/17 Doxazosin Mesylate [Cardura -] 4 mg PO DAILY 06/07/17 Furosemide [Lasix -] 40 mg PO DAILY 06/07/17 Multivitamin [One Daily] 1 each PO DAILY 06/07/17 hydrALAZINE HCL [Apresoline -] 50 mg PO BID 06/07/17 Insulin Detemir [Levemir Flextouch] 60 unit SQ HS 11/05/17 Insulin Regular, Human [Humulin R U-500 Kwikpen] 0 unit SQ ACBK 11/05/17 Aspirin 81 mg PO DAILY 06/18/18 Gabapentin 300 mg PO DAILY 06/18/18 Anemia: No Asthma: No Cancer: Yes (BLADDER CA W/REMOVAL AND UROSTOMY) Cardiac Disorders: No ([facility]) CVA: Yes (TIA 2013) COPD: Yes CHF: No Dementia: No Diabetes: Yes (IDDM) Dialysis: No GI Disorders: No Disorders: Yes HTN: Yes Hypercholesterolemia: Yes Liver Disease: No Seizures: No Thyroid Disease: No - Surgical History Abdominal Surgery: Yes (BLADDER REMOVED 05/2014 -UROSTOMY) Appendectomy: No Cardiac Surgery: No Cholecystectomy: No Lung Surgery: No Neurologic Surgery: No Orthopedic Surgery: Yes (left knee sx) - Immunization History Immunization Up to Date: Yes (FLU AND PNA UP TO DATE) - Suicide/Smoking/Psychosocial Hx Smoking Status: No Smoking History: Former smoker Have you smoked in the past 12 months: No If you are a former smoker, when did you quit?: 40 YRS AGO Information on smoking cessation initiated: No Hx Alcohol Use: No Drug/Substance Use Hx: No Substance Use Type: None Hx Substance Use Treatment: No Review of Systems - Review of Systems Able to Perform ROS?: Yes Comments:: 06/18/18 14:22 General: denied fever, chills, night sweats, generalized weakness. HEENT: denied sore throat, rhinorrhea, ear pain. Heart: admitted to chest pain. denied palpitations, syncope, lower extremity swelling, diaphoresis. Respiratory: admitted to SOB. denied cough, sputum production, hemoptysis. Abdomen: denied abdominal pain, nausea, vomiting, diarrhea, constipation, blood in stool. : denied dysuria, increased urinary frequency, hematuria, urinary incontinence , flank pain. Back: denied back pain. Musculoskeletal: denied joint pain, muscle pain, joint swelling. Neurological: denied headache, dizziness, numbness, tingling, weakness. Skin: denied rash, laceration, abrasion. *Physical Exam - Vital Signs Last Vital Signs Temp Pulse Resp BP Pulse Ox 98.2 F 101 H 38 H 142/64 98 06/18/18 13:43 06/18/18 13:43 06/18/18 13:43 06/18/18 13:43 06/18/18 13:43 - Physical Exam Comments: 06/18/18 14:22 Constitutional: Well-nourished, Well-developed, appearing stated age. clutching chest. HEENT: head is normocephalic, atraumatic. EOMI. PERRLA. Neck: supple. Full ROM. Heart: regular rhythm. no murmurs, rubs or gallops. Lungs: tachypneic. labored breathing. speaking in short sentences. clear to auscultation bilaterally. no crackles, rhonchi or wheezing. no stridor. urostomy bag in place. Abdomen: soft, nontender. normal bowel sounds. no rebound, guarding, masses. Extremities: Peripheral pulses intact. 4+ pitting edema to bilateral LE, Left> Right. Neurological: CN 2-12 grossly intact. Moves all four extremities. Psych: awake, alert, oriented x3. Follows commands. Answers questions appropriately. Moderate Sedation - Procedure Monitoring Vital Signs: Procedure Monitoring Vital Signs Temperature 98.2 F 06/18/18 13:43 Pulse Rate 101 H 06/18/18 13:43 Respiratory Rate 38 H 06/18/18 13:43 Blood Pressure 142/64 06/18/18 13:43 O2 Sat by Pulse Oximetry (%) 98 06/18/18 13:43 Procedures - Bedside Ultrasound Bedside Ultrasound: Lung Other: DVT Remarks: 06/18/18 16:31 Bedside cardiac US performed - Parasternal long: small pericardial effusion, no aortic dilation, no RV dilation. - Parasternal short: good squeeze. No septal bowing. - Apical: no RV dilation. No septal bowing. Small pericardial effusion. - Subxiphoid: small percardial effusion. Good squeeze. Bedside LLE DVT study performed - No evidence of DVT Heart Score/ECG Review - History History: Slightly suspicious - Electrocardiogram EKG: Normal - Age Age: >/= 65 - Risk Factors Risk Factors Heart Score: Yes Hx Hypertension, Yes Hx Diabetes, Yes Hx Obesity Based on the list above the patient has:: >/=3 risk factors or Hx atherosclerotic disease - Troponin Troponin: </= normal limit - Score Heart Score - Total: 4 ED Treatment Course - LABORATORY CBC & Chemistry Diagram: 06/19/18 06:05 06/19/18 06:05 Medical Decision Making - Medical Decision Making 06/18/18 16:04 67 year old male with above PMH presented to ED for chest pain/shortness of breath/increased LLE swelling. Initial Vital Signs Temp Pulse Resp BP Pulse Ox 98.2 F 101 H 38 H 142/64 98 06/18/18 13:43 06/18/18 13:43 06/18/18 13:43 06/18/18 13:43 06/18/18 13:43 Afebrile. Tachycardic. Tachypneic. Mild hypertension. No hypoxia on room air. EKG performed at 1337: rate 103, regular rhythm, left axis, normal intervals, no acute ST changes. High concern for PE. - Pending CTA CMP Sodium 139 mmol/L (136-145) 06/18/18 15:03 Potassium 4.5 mmol/L (3.5-5.1) 06/18/18 15:03 Chloride 117 mmol/L (98-107) H 06/18/18 15:03 Carbon Dioxide 11 mmol/L (21-32) L 06/18/18 15:03 Anion Gap 11 MMOL/L (8-16) 06/18/18 15:03 BUN 69 mg/dL (7-18) H 06/18/18 15:03 Creatinine 3.4 mg/dL (0.55-1.3) H 06/18/18 15:03 Creat Clearance w eGFR 18.05 (>60) 06/18/18 15:03 Random Glucose 193 mg/dL (74-106) H 06/18/18 15:03 Calcium 8.2 mg/dL (8.5-10.1) L 06/18/18 15:03 Total Bilirubin 0.4 mg/dL (0.2-1) 06/18/18 15:03 AST 32 U/L (15-37) 06/18/18 15:03 ALT 31 U/L (13-61) 06/18/18 15:03 Alkaline Phosphatase 91 U/L (45-117) 06/18/18 15:03 Creatine Kinase 235 IU/L (26-308) 06/18/18 15:03 Troponin I < 0.02 ng/ml (0.00-0.05) 06/18/18 15:03 B-Natriuretic Peptide 77.0 pg/ml (5-125) 06/18/18 15:03 Total Protein 7.5 g/dl (6.4-8.2) 06/18/18 15:03 Albumin 3.5 g/dl (3.4-5.0) 06/18/18 15:03 CBC clotted. MEKA - IV fluids ordered Unable to CTA - Will discuss with medicine on V/Q scan, heparin Troponin normal CKMB 4.0 CK normal BNP normal COPD exacerbation unlikely, no cough, no sputum, no hypoxia. CHF exacerbation unlikely, normal BNP despite lower extremity swelling. ACS unlikely, normal troponin, normal EKG, pain ongoing x3 days, pain is pleuritic. Bedside LLE doppler US performed: no DVT - Pending official doppler of B/L LE Bedside echo performed: no pericardial effusion. no RV dilation. no septal bowing. High concern for PE, unable to CTA, will discuss with medicine. If patient has PE it is not large enough to cause right heart strain. 06/18/18 17:48 Official Doppler US of bilateral LE: negative for DVT. *DC/Admit/Observation/Transfer Diagnosis at time of Disposition: Chest pain - Discharge Dispostion Condition at time of disposition: Guarded Decision to Admit order: Yes - Referrals - Patient Instructions - Post Discharge Activity
--- NOTE | 2018-06-18 15:52 | PDOC ---
Attending Attestation - ED Attending Attestation I have performed the following: I have examined & evaluated the patient, The case was reviewed & discussed with the resident, I agree w/resident's findings & plan, Exceptions are as noted - Physicial Exam PE: 06/18/18 15:52 on exam pt awake alert with lungs clear bilaterally heart rrr no mrg. lower ext swelling pitting edema bilat, L > R. nuero alert oriented cx3 - Medical Decision Making 06/18/18 15:46 67 yo M h/o copd htn obesity, bladder ca here with plueritic chest pain. left leg swelling. no h/o pe or dvt. sent by pcp dr. howard on exam pt with lungs clear bilaterally heart rrr no mrg. lower ext swelling pitting edema bilat, L > R. nuero alert oriented cx3 differentia pe. pna, infection such as effusion, acs. plan cxr cta, ekg trop focused ED us TTE, left leg doppler. focused ED TTE, indication chest pain suspected PE four views obtained parasternal long and short, subxiphoid, and apical. good contractility. no pericardial effusion. no rv dilation or strain patter. impression: normal TTE focused ED ultrasound left lower extremity r/o dvt. indication pain and swelling left leg scanned with linear probe from comon femoral past bifurcation into superficial and deep femoral and popliteal region past trifurcation into anterior and posterior tibial and peroneal veins. full compression at all sites , normal color flow, normal augmentation. no visualized transfer. impression: no proximal DVT, recommend repeat in 5 - 7 days. plan cta, likely admit to tele pending cta, r/o acs. <Nidia Hernadez - Last Filed: 06/18/18 15:46> - HPI HPI: 06/18/18 15:57 The patient is a 67 year old male, with a significant past medical history of Diabetes, HTN, CHF, TIA, bladder CA (2014), who presents to the emergency department with 3 days of pleuritic chest pain and increased lower extremity swelling sent from Dr. Howard. He describes the pain as sharp which is exacerbated with light exertion and deep inspiration. He denies radiation of chest pain. The patient denies shortness of breath, headache and dizziness. The patient denies fever, chills, nausea, vomit, diarrhea and constipation. The patient denies dysuria, frequency, urgency and hematuria. Allergies: NKDA - Medical Decision Making 06/18/18 15:57 Documentation prepared by Nicole Mendoza, acting as biomedical specialist for Nidia Hernadez MD <Nicole Mendoza - Last Filed: 06/18/18 15:57>
[2018-06-18 15:58] LABS: ALBUMIN 3.5 g/dl (3.4-5.0); ALK PHOS 91 U/L (45-117); ANION GAP 11 MMOL/L (8-16); BILIRUBIN,TOTAL 0.4 mg/dL (0.2-1); BLOOD UREA NITROGEN 69 mg/dL (7-18); CALCIUM 8.2 mg/dL (8.5-10.1); CHLORIDE 117 mmol/L (98-107); CO2 11 mmol/L (21-32); CREATININE 3.4 mg/dL (0.55-1.3); GLUCOSE,RANDOM 193 mg/dL (74-106); POTASSIUM 4.5 mmol/L (3.5-5.1); SGOT/AST 32 U/L (15-37); SGPT/ALT 31 U/L (13-61); SODIUM 139 mmol/L (136-145); TOT PROT 7.5 g/dl (6.4-8.2)
[2018-06-18] MEDS ORDERED: SODIUM CHLORIDE 1,000 ML IV STA (16:07)
[2018-06-18] MEDS ORDERED: ASPIRIN 81 MG CHEWABLE TABLETS PO ONE (16:21)
[2018-06-18] MEDS ORDERED: ASPIRIN 81 MG CHEWABLE TABLETS ONE (16:27)
[2018-06-18 17:04] LABS: INR 1.12 (0.83-1.09); PROTHROMBIN TIME (PATIENT) 13.2 SEC (9.7-13.0)
[2018-06-18 17:06] LABS: ACTIVATED PTT 20.8 SECONDS (25.2-36.5)
--- NOTE | 2018-06-18 18:31 | PN ---
Teaching Attending Note Name of Resident: Shan Amaya ATTENDING PHYSICIAN STATEMENT I saw and evaluated the patient. I reviewed the resident's note and discussed the case with the resident. I agree with the resident's findings and plan as documented. SUBJECTIVE:67 year old male with PMH HTN, DM, CHF, TIA (1-2years ago), COPD, bladder CA (s/p resection 2014), CKD sent to ED by PCP Dr. Howard for chest pain/ SOB that was sudden on onset while watching tv 3 days ago. assoc with LLE swelling went to see PMD for regular check up who urged him to come to the ER. denies hemopysis, N/V/C/D. no recent changes to medication. no recent abx use OBJECTIVE: Last Vital Signs Temp Pulse Resp BP Pulse Ox 98.2 F 101 H 38 H 142/64 98 06/18/18 13:43 06/18/18 13:43 06/18/18 13:43 06/18/18 13:43 06/18/18 13:43 General NAD CV S1 S2 RRR no murmur/rub/gallop Lungs CTA B/L no wheezing/rales/rhonchi Abdomen soft NT/ND Extremities 1+ pitting edema LLE ASSESSMENT AND PLAN: 67 year old male with PMH HTN, DM, CHF, TIA (1-2years ago), COPD, bladder CA (s/ p resection 2014), CKD sent to ED by PCP Dr. Howard for chest pain/SOB x3 days. 1. Chest pain- pleuritic in nature. high concern for PE given risk factors. d- dimer not helpful in this situation due to PMH and high suspicion. doppler negative. unable to perform CTA due to Acute on CKD. will start heparin ggt for now. consult pulm for VQ scan. echo to look for heart strain although low suspicion given hemodynamic stability. will also trend troponins q8H, serial EKG. continuos cardiac monitoring 2. Acute on CKD-Baseline Cr 2.8. will hold lasix at this time. 1/2NS, renal and bladder u/s. avoid nephrotoxic agetns. 3. HTN- controlled. cont home medications 4. CHF- appears euvolemic. hold lasix at this time. 5. bladder ca- outpatient follow up 6. TIA
--- NOTE | 2018-06-18 18:53 | HP ---
CHIEF COMPLAINT: SOB X 3 Days PCP: Dr Howard HISTORY OF PRESENT ILLNESS: Pt is a pleasant 7 y/o gentleman with a significant past medical history of bladder cancer s/p total cystectomy w/ urostomy formation (2014), HTN, TIA, COPD , CKD presented to [facility] c/o chest pain and shortness of breath for 3 days duration. Pain began abruptly while patient was watching television. Pain is described as sharp and is exacerbated w/ inspiration. At its zenith, pain is can be a 10/10 in severity. Pain has been intermittent. Currently, pain is a 5/ 10 in severity. Pt also endorsing cough at this time productive of whitish sputum. Furthermore, pt also endorsing increased pain and swelling in his LLE. this is the first time pt has had this type of chest pain. Pt denies orthopnea, nausea, vomiting, numbness or tingling. ER course was notable for: (1) Duplex LLE Neg for DVT (2) Creatinine 3.4 (3) Recent Travel: PAST MEDICAL HISTORY: Per HPI PAST SURGICAL HISTORY: Per HPi Social History: Smoking: denies Alcohol: denies Drugs: Family History: Allergies shrimp Allergy (Intermediate, Verified 06/18/18 13:30) Vomiting HOME MEDICATIONS: Home Medications Medication Instructions Recorded Atorvastatin Ca [Lipitor] 10 mg PO DAILY 06/07/17 Cholecalciferol (Vitamin D3) 1,000 unit PO DAILY 06/07/17 [Vitamin D3] Cyanocobalamin [Vitamin B12 -] 1,000 mcg PO DAILY 06/07/17 Doxazosin Mesylate [Cardura -] 4 mg PO HS 06/07/17 Furosemide [Lasix -] 40 mg PO DAILY 06/07/17 Multivitamin [One Daily] 1 each PO DAILY 06/07/17 hydrALAZINE HCL [Apresoline -] 50 mg PO BID 06/07/17 Insulin Detemir [Levemir Flextouch] 60 unit SQ HS 11/05/17 Insulin Regular, Human [Humulin R 0 unit SQ ACBK 11/05/17 U-500 Kwikpen] Aspirin 81 mg PO DAILY 06/18/18 Gabapentin 100 mg PO ASDIR 06/18/18 REVIEW OF SYSTEMS CONSTITUTIONAL: Absent: fever, chills, diaphoresis, generalized weakness, malaise, loss of appetite, weight change HEENT: Absent: rhinorrhea, nasal congestion, throat pain, throat swelling, difficulty swallowing, mouth swelling, ear pain, eye pain, visual changes CARDIOVASCULAR: PRESENT: chest pain, , peripheral edema RESPIRATORY: PRESENT: cough, shortness of breath, dyspnea with exertion, orthopnea, GASTROINTESTINAL: Absent: abdominal pain, abdominal distension, nausea, vomiting, diarrhea, constipation, melena, hematochezia GENITOURINARY: Absent: dysuria, frequency, urgency, hesitancy, hematuria, flank pain, genital pain MUSCULOSKELETAL: Absent: myalgia, arthralgia, joint swelling, back pain, neck pain SKIN: Absent: rash, itching, pallor HEMATOLOGIC/IMMUNOLOGIC: Absent: easy bleeding, easy bruising, lymphadenopathy, frequent infections ENDOCRINE: Absent: unexplained weight gain, unexplained weight loss, heat intolerance, cold intolerance NEUROLOGIC: Absent: headache, focal weakness or paresthesias, dizziness, unsteady gait, seizure, mental status changes, bladder or bowel incontinence PSYCHIATRIC: Absent: anxiety, depression, suicidal or homicidal ideation, hallucinations. PHYSICAL EXAMINATION Vital Signs - 24 hr 06/18/18 13:43 Temperature 98.2 F Pulse Rate 101 H Respiratory 38 H Rate Blood Pressure 142/64 O2 Sat by Pulse 98 Oximetry (%) GENERAL: AAOx3 NAD HEAD: Normal with no signs of trauma. EYES: PERRL EOMI EARS, NOSE, THROAT: MMM NECK: Normal range of motion, supple without lymphadenopathy, JVD, or masses. LUNGS: Breath sounds equal, clear to auscultation bilaterally. No wheezes, and no crackles. No accessory muscle use. HEART: Regular rate and rhythm, normal S1 and S2 without murmur, rub or gallop. ABDOMEN: UROSTOMY, ABDOMINAL WALL HERNIA MUSCULOSKELETAL: FROM throughout . UPPER EXTREMITIES: 2+ pulses, warm, well-perfused. No cyanosis. No clubbing. No peripheral edema. LOWER EXTREMITIES: LLE more swolen than right. Onychomycosis b/l, stasis dermatitis. NEUROLOGICAL: no neuro def appreciated PSYCHIATRIC: Cooperative. Good eye contact. Appropriate mood and affect. SKIN: No rashes or lesions appreciated Laboratory Results - last 24 hr 06/18/18 06/18/18 06/18/18 15:03 15:03 15:03 WBC Cancelled Corrected WBC (auto) Cancelled RBC Cancelled Hgb Cancelled Hct Cancelled MCV Cancelled MCH Cancelled MCHC Cancelled RDW Cancelled Plt Count Cancelled MPV Cancelled Absolute Neuts (auto) Cancelled Neutrophils % Cancelled Lymphocytes % Cancelled Monocytes % Cancelled Eosinophils % Cancelled Basophils % Cancelled Nucleated RBC % Cancelled Platelet Estimate Cancelled Platelet Comment Cancelled PT with INR 13.20 H INR 1.12 H PTT (Actin FS) 20.8 L Sodium 139 Potassium 4.5 Chloride 117 H Carbon Dioxide 11 L Anion Gap 11 BUN 69 H Creatinine 3.4 H Creat Clearance w eGFR 18.05 Random Glucose 193 H Calcium 8.2 L Total Bilirubin 0.4 AST 32 ALT 31 Alkaline Phosphatase 91 Creatine Kinase 235 Creatine Kinase Index 1.7 CK-MB (CK-2) 4.0 H Troponin I < 0.02 B-Natriuretic Peptide 77.0 Total Protein 7.5 Albumin 3.5 Blood Type Antibody Screen 06/18/18 15:03 WBC Corrected WBC (auto) RBC Hgb Hct MCV MCH MCHC RDW Plt Count MPV Absolute Neuts (auto) Neutrophils % Lymphocytes % Monocytes % Eosinophils % Basophils % Nucleated RBC % Platelet Estimate Platelet Comment PT with INR INR PTT (Actin FS) Sodium Potassium Chloride Carbon Dioxide Anion Gap BUN Creatinine Creat Clearance w eGFR Random Glucose Calcium Total Bilirubin AST ALT Alkaline Phosphatase Creatine Kinase Creatine Kinase Index CK-MB (CK-2) Troponin I B-Natriuretic Peptide Total Protein Albumin Blood Type A POSITIVE Antibody Screen Negative ASSESSMENT/PLAN: Pt is a pleasant 7 y/o gentleman with a significant past medical history of bladder cancer s/p total cystectomy w/ urostomy formation (2014), HTN, TIA, COPD , CKD presented to [facility] c/o chest pain and shortness of breath for 3 days duration. #SOB 2/2 Pulmonary Embolism? - CT Chest W/ Contrast not done at this time 2/2 MEKA on CKD. Pt's Creatinine 3.4 currently. 2.7 in April. -V/Q Scan -Heparin gtt -trop Q6H -EKG -Tylenol PRN for pain -Pulmonary Consult -Tele # MEKA on CKD -Renal Ultrasound -Avoid nephrotoxic agents such as aminoglycosides, nsaids -Hold Lasix HTN Resume home meds COPD Resume home meds DVT ppx: Hep SQ Dispo: Tele Visit type - Emergency Visit Emergency Visit: Yes ED Registration Date: 06/18/18 Care time: The patient presented to the Emergency Department on the above date and was hospitalized for further evaluation of their emergent condition. - New Patient This patient is new to me today: Yes Date on this admission: 06/19/18 - Critical Care Critical Care patient: No
[2018-06-18] MEDS ORDERED: HEPARIN NA (PORCINE) 5,000 UNITS/ML 1ML VIAL IVPUSH PRN (19:03)
[2018-06-18] MEDS ORDERED: HEPARIN INFUSION - 25,000 UNITS/500 ML INFUS.BAG IVPB ONE (20:08)
[2018-06-18] MEDS: HEPARIN SOD,PORK IN 0.45% NACL 25,000 UNITS/500 ML INFUS.BAG IVPB SCH (20:50)
[2018-06-18] MEDS ORDERED: SODIUM CHLORIDE 0.45% 1,000 ML IV SCH (23:00)
[2018-06-18] MEDS: INSULIN SLIDING SCALE (NOVOLOG) 1 VIAL SQ SCH (23:03)
[2018-06-19] MEDS: HEPARIN NA (PORCINE) 5,000 UNITS/ML 1ML VIAL IVPUSH PRN ×2 (03:44→09:34)
[2018-06-19] MEDS: HEPARIN SOD,PORK IN 0.45% NACL 25,000 UNITS/500 ML INFUS.BAG IVPB SCH ×2 (03:45→20:00)
[2018-06-19] MEDS: INSULIN SLIDING SCALE (NOVOLOG) 1 VIAL SQ SCH ×4 (06:20→21:53)
[2018-06-19 07:42] LABS: BASO % 0.6 % (0-2.0); EOS % 4.4 % (0-4.5); HEMATOCRIT 33.3 % (35.4-49); HEMOGLOBIN 10.8 GM/dL (11.7-16.9); LYMPH % 12.5 % (8-40); MCH 26.5 pg (25.7-33.7); MCHC 32.3 g/dl (32.0-35.9); MEAN CELL VOLUME 82.1 fl (80-96); MEAN PLT VOLUME 7.9 fl (7.5-11.1); NEUT % 73.5 % (42.8-82.8); PLATELET COUNT 237 K/MM3 (134-434); RBC 4.05 M/mm3 (4.00-5.60)
[2018-06-19 08:17] LABS: ALBUMIN 3.1 g/dl (3.4-5.0); ALK PHOS 88 U/L (45-117); ANION GAP 10 MMOL/L (8-16); BILIRUBIN,TOTAL 0.3 mg/dL (0.2-1); BLOOD UREA NITROGEN 72 mg/dL (7-18); CALCIUM 8.2 mg/dL (8.5-10.1); CHLORIDE 119 mmol/L (98-107); CO2 11 mmol/L (21-32); CREATININE 3.3 mg/dL (0.55-1.3); GLUCOSE,RANDOM 163 mg/dL (74-106); MAGNESIUM 2.6 mg/dL (1.8-2.4); PHOSPHOROUS 4.1 mg/dL (2.5-4.9); POTASSIUM 4.1 mmol/L (3.5-5.1); SGOT/AST 17 U/L (15-37); SGPT/ALT 27 U/L (13-61); SODIUM 140 mmol/L (136-145); TOT PROT 6.6 g/dl (6.4-8.2)
[2018-06-19 09:06] LABS: INR 1.08 (0.83-1.09); PROTHROMBIN TIME (PATIENT) 12.8 SEC (9.7-13.0)
[2018-06-19] MEDS ORDERED: PT OWN MED DRAWER 7, Y5N ONE (09:21)
[2018-06-19] MEDS: hydrALAZINE HCL 50 MG TABLET (FP) PO SCH ×2 (09:28→21:53)
[2018-06-19] MEDS: GABAPENTIN 300 MG CAPSULE (FP) PO SCH (09:28)
[2018-06-19] MEDS: ASPIRIN 81 MG CHEWABLE TABLETS PO SCH (09:28)
[2018-06-19] MEDS: CYANOCOBALAMIN 1,000 MCG TABLET (FP) PO SCH (09:28)
[2018-06-19] MEDS: MULTIVITAMINS (DAILY MVI) TABLET (FP) PO SCH (09:28)
[2018-06-19] MEDS: DOXAZOSIN MESYLATE 4 MG TABLET PO SCH (09:28)
[2018-06-19] MEDS: CHOLECALCIFEROL (VITAMIN D3) 1,000 UNIT TABLET (FP) PO SCH (09:28)
--- NOTE | 2018-06-19 10:59 | PN ---
Progress Note, Physician - Current Medication List Current Medications: Active Medications Aspirin (Asa -) 81 mg PO DAILY [facility] Last Admin: 06/19/18 09:28 Dose: 81 mg Atorvastatin Calcium (Lipitor -) 10 mg PO [facility] Cholecalciferol (Vitamin D3 -) 1,000 unit PO DAILY [facility] Last Admin: 06/19/18 09:28 Dose: 1,000 unit Cyanocobalamin (Vitamin B12 -) 1,000 mcg PO DAILY [facility] Last Admin: 06/19/18 09:28 Dose: 1,000 mcg Doxazosin Mesylate (Cardura -) 4 mg PO DAILY [facility] Last Admin: 06/19/18 09:28 Dose: 4 mg Gabapentin (Neurontin -) 300 mg PO DAILY [facility] Last Admin: 06/19/18 09:28 Dose: 300 mg Heparin Sodium (Porcine) (Heparin -) 1,000 unit IVPUSH PRN PRN PRN Reason: Heparin Last Admin: 06/19/18 09:34 Dose: 1,000 unit Heparin Sodium (Porcine) (Heparin -) 5,000 unit IVPUSH PRN PRN PRN Reason: Heparin Hydralazine HCl (Apresoline -) 50 mg PO BID [facility] Last Admin: 06/19/18 09:28 Dose: 50 mg HEPARIN SOD,PORK IN 0.45% NACL (Heparin-1/2ns 25,000 Units/500) 25,000 units in 500 mls @ 20 mls/hr IVPB TITR [facility]; Protocol Last Titration: 06/19/18 09:34 Dose: 1,200 units/hr, 24 mls/hr Insulin Aspart (Novolog Vial Sliding Scale -) 1 vial SQ ACHS [facility]; Protocol Last Admin: 06/19/18 06:20 Dose: 2 units Multivitamins/Minerals/Vitamin C (Tab-A-Vit -) 1 tab PO DAILY [facility] Last Admin: 06/19/18 09:28 Dose: 1 tab - Objective Vital Signs: Vital Signs Temperature 36.8 C 06/19/18 10:00 Pulse Rate 74 06/19/18 10:00 Respiratory Rate 20 06/19/18 10:00 Blood Pressure 145/66 06/19/18 10:00 O2 Sat by Pulse Oximetry (%) 96 06/19/18 09:00 Labs: CBC, BMP 06/19/18 06:05 06/19/18 06:05 INR, PTT INR 1.08 (0.83-1.09) 06/19/18 06:05
--- NOTE | 2018-06-19 13:13 | CON.PULM ---
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 Howard for chest pain/SOB x3 days. Per pt his chest pain is substernal, pleuritic , tight/squeeze, aggravated by breathing/moving/exertion, no alleviating factors , non radiating. He admitted to increased LLE swelling over the last week. He denied travel>5 hours, bed rest>3 days, hx DVT/PE, hemoptysis, active CA <6 months, surgery<4 weeks. He denied fever, chills, cough, nausea, vomiting, diarrhea, abdominal pain. - History Source History Provided By: Patient, Medical Record Limitations to Obtaining History: No Limitations - Past Medical History E TAILER: Yes: CVA Cardio/Vascular: Yes: HTN, Hyperlipdemia Pulmonary: No: COPD, O2 Dependent Gastrointestinal: No: Ascites Hepatobiliary: No: Cirrhosis Renal/: Yes: Renal Inusuff, Other (lucy durand) Heme/Onc: Yes: Anemia Endocrine: Yes: Diabetes Mellitus - Past Surgical History Past Surgical History: Yes: Cystectomy (05/2014) - Alcohol/Substance Use Hx Alcohol Use: No History of Substance Use: reports: None - Smoking History Smoking history: Former smoker Have you smoked in the past 12 months: No If you are a former smoker, when did you quit?: 40 YRS AGO - Social History Usual Living Arrangement: Alone ADL: Independent 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 History of Recent Travel: No Home Medications - Allergies Allergies/Adverse Reactions: Allergies Allergy/AdvReac Type Severity Reaction Status Date / Time shrimp Allergy Intermediate Vomiting Verified 06/18/18 13:30 - Home Medications Home Medications: Ambulatory Orders Atorvastatin Ca [Lipitor] 10 mg PO DAILY 06/07/17 Cholecalciferol (Vitamin D3) [Vitamin D3] 1,000 unit PO DAILY 06/07/17 Cyanocobalamin [Vitamin B12 -] 1,000 mcg PO DAILY 06/07/17 Doxazosin Mesylate [Cardura -] 4 mg PO DAILY 06/07/17 Furosemide [Lasix -] 40 mg PO DAILY 06/07/17 Multivitamin [One Daily] 1 each PO DAILY 06/07/17 hydrALAZINE HCL [Apresoline -] 50 mg PO BID 06/07/17 Insulin Detemir [Levemir Flextouch] 60 unit SQ HS 11/05/17 Insulin Regular, Human [Humulin R U-500 Kwikpen] 0 unit SQ ACBK 11/05/17 Aspirin 81 mg PO DAILY 06/18/18 Gabapentin 300 mg PO DAILY 06/18/18 Family Disease History - Family Disease History Family Disease History: Diabetes: Mother, CA: Father Review of Systems - Review of Systems Constitutional: denies: Chills, Fever Eyes: denies: Blind Spots HENT: denies: Difficult Swallowing Neck: denies: Decreased ROM Cardiovascular: reports: Chest Pain, Edema, Shortness of Breath. denies: Palpitations Respiratory: reports: Exercise Intolerance, SOB, SOB on Exertion. denies: Hemoptysis Gastrointestinal: denies: Abdominal Pain Genitourinary: denies: Burning Breasts: reports: No Symptoms Reported Integumentary: reports: No Symptoms Neurological: reports: No Symptoms Endocrine: reports: No Symptoms Physical Exam Vital Sings: Vital Signs Temperature 98.2 F 06/19/18 10:00 Pulse Rate 74 06/19/18 10:00 Respiratory Rate 20 06/19/18 10:00 Blood Pressure 145/66 06/19/18 10:00 O2 Sat by Pulse Oximetry (%) 96 06/19/18 09:00 Constitutional: Yes: Calm Eyes: Yes: EOM Intact HENT: Yes: Normocephalic Neck: Yes: Trachea Midline Cardiovascular: Yes: Regular Rate and Rhythm, S1, S2 Respiratory: Yes: Diminished Gastrointestinal: Yes: Soft, Abdomen, Obese Edema: LLE: 2+, RLE: 2+ Neurological: Yes: Alert Psychiatric: Yes: Alert Labs: CBC, BMP 06/19/18 06:05 06/19/18 06:05 rest reviewed Imaging - Results Chest X-ray: Report Reviewed, Image Reviewed Ultrasound: Report Reviewed Problem List - Problems (1) Chest pain Code(s): R07.9 - CHEST PAIN, UNSPECIFIED (2) ARF (acute renal failure) Code(s): N17.9 - ACUTE KIDNEY FAILURE, UNSPECIFIED Qualifiers: Acute renal failure type: unspecified Qualified Code(s): N17.9 - Acute kidney failure, unspecified (3) Anemia Code(s): D64.9 - ANEMIA, UNSPECIFIED (4) Bladder cancer Code(s): C67.9 - MALIGNANT NEOPLASM OF BLADDER, UNSPECIFIED (5) CVA (cerebral vascular accident) Code(s): I63.9 - CEREBRAL INFARCTION, UNSPECIFIED (6) Chronic kidney disease Code(s): N18.9 - CHRONIC KIDNEY DISEASE, UNSPECIFIED Qualifiers: Chronic kidney disease stage: stage 4 (severe) Qualified Code(s): N18.4 - Chronic kidney disease, stage 4 (severe) (7) Diabetes Code(s): E11.9 - TYPE 2 DIABETES MELLITUS WITHOUT COMPLICATIONS Qualifiers: Diabetes mellitus type: type 2 Diabetes mellitus mcfp insulin use: with mcfp use Diabetes mellitus complication status: with kidney complications Diabetes mellitus complication detail: with chronic kidney disease Chronic kidney disease stage: stage 4 (severe) Qualified Code(s): E11.22 - Type 2 diabetes mellitus with diabetic chronic kidney disease; N18.4 - Chronic kidney disease, stage 4 (severe); N18.4 - Chronic kidney disease, stage 4 (severe); N18.4 - Chronic kidney disease, stage 4 (severe); N18.4 - Chronic kidney disease, stage 4 (severe); Z79.4 - intermediate (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 of insulin; Z79.4 - intermediate (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 of insulin; 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.4 - 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 of insulin; Z79.4 - intermediate (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 of insulin (8) H/O total cystectomy Code(s): Z98.89 - OTHER SPECIFIED POSTPROCEDURAL STATES * DO NOT USE * (9) HLD (hyperlipidemia) Code(s): E78.5 - HYPERLIPIDEMIA, UNSPECIFIED (10) Hypertension Code(s): I10 - ESSENTIAL (PRIMARY) HYPERTENSION Qualifiers: Hypertension type: essential hypertension Qualified Code(s): I10 - Essential (primary) hypertension (11) Obesity Code(s): E66.9 - OBESITY, UNSPECIFIED Qualifiers: Obesity type: due to excess calories Obesity classification: unspecified obesity classification Serious obesity comorbidity presence: unspecified whether serious comorbidity present Qualified Code(s): E66.09 - Other obesity due to excess calories (12) Urinary tract infection Code(s): N39.0 - URINARY TRACT INFECTION, SITE NOT SPECIFIED Qualifiers: Urinary tract infection type: site unspecified Hematuria presence: with hematuria Qualified Code(s): N39.0 - Urinary tract infection, site not specified; R31.9 - Hematuria, unspecified; R31.9 - Hematuria, unspecified Assessment/Plan MODERATE INDEX OF SUSPICION FOR PE CTA UNABLE TO BE DONE DUE TO WORSENING RENAL FAILURE D-DIMER LIKELY NOT HELPFUL IN THIS SETTING AGREE WITH EMPIRIC IV HEPARIN UNTIL PE CAN BE RULED OUT V/Q SCAN SCHEDULED FOR THURSDAY O2 SUPPLEMENTATION CONTINUE HOME MEDS WILL FOLLOW THANK YOU Tierra DELAROSA MD
--- NOTE | 2018-06-19 14:32 | PN ---
Progress Note, Physician Chief Complaint: Mr Isaacs says he is still having shortness of breath and pleuritic type chest pain. No n/v. - Current Medication List Current Medications: Active Medications Aspirin (Asa -) 81 mg PO DAILY [facility] Last Admin: 06/19/18 09:28 Dose: 81 mg Atorvastatin Calcium (Lipitor -) 10 mg PO [facility] Cholecalciferol (Vitamin D3 -) 1,000 unit PO DAILY [facility] Last Admin: 06/19/18 09:28 Dose: 1,000 unit Cyanocobalamin (Vitamin B12 -) 1,000 mcg PO DAILY [facility] Last Admin: 06/19/18 09:28 Dose: 1,000 mcg Doxazosin Mesylate (Cardura -) 4 mg PO DAILY [facility] Last Admin: 06/19/18 09:28 Dose: 4 mg Gabapentin (Neurontin -) 300 mg PO DAILY [facility] Last Admin: 06/19/18 09:28 Dose: 300 mg Heparin Sodium (Porcine) (Heparin -) 1,000 unit IVPUSH PRN PRN PRN Reason: Heparin Last Admin: 06/19/18 03:44 Dose: 1,000 unit Heparin Sodium (Porcine) (Heparin -) 5,000 unit IVPUSH PRN PRN PRN Reason: Heparin Hydralazine HCl (Apresoline -) 50 mg PO BID [facility] Last Admin: 06/19/18 09:28 Dose: 50 mg HEPARIN SOD,PORK IN 0.45% NACL (Heparin-1/2ns 25,000 Units/500) 25,000 units in 500 mls @ 20 mls/hr IVPB TITR [facility]; Protocol Last Titration: 06/19/18 11:56 Dose: 1,050 units/hr, 21 mls/hr Insulin Aspart (Novolog Vial Sliding Scale -) 1 vial SQ ACHS [facility]; Protocol Last Admin: 06/19/18 12:04 Dose: 2 units Multivitamins/Minerals/Vitamin C (Tab-A-Vit -) 1 tab PO DAILY [facility] Last Admin: 06/19/18 09:28 Dose: 1 tab - Objective Vital Signs: Vital Signs Temperature 36.8 C 06/19/18 10:00 Pulse Rate 74 06/19/18 10:00 Respiratory Rate 20 06/19/18 10:00 Blood Pressure 145/66 06/19/18 10:00 O2 Sat by Pulse Oximetry (%) 96 06/19/18 09:00 Constitutional: Yes: No Distress, Calm, Obese Cardiovascular: Yes: Regular Rate and Rhythm. No: Gallop, Murmur, Rub Respiratory: Yes: Regular, CTA Bilaterally. No: Rales, Rhonchi, Wheezes Gastrointestinal: Yes: Normal Bowel Sounds, Soft. No: Distention, Tenderness Extremities: Yes: WNL Edema: Yes Edema: LLE: 2+, RLE: 2+ Labs: CBC, BMP 06/19/18 06:05 06/19/18 06:05 INR, PTT INR 1.08 (0.83-1.09) 06/19/18 06:05 Problem List - Problems (1) Chest pain Assessment/Plan: -concern for possible PE -case d/w Dr Jones and appreciate assistance -await ECHO results -continue heparin gtt -plan for V/Q scan Thursday Code(s): R07.9 - CHEST PAIN, UNSPECIFIED (2) ARF (acute renal failure) Assessment/Plan: -has CKD, slightly worsened -on 07/21 NS, will stop as patient is looking fluid overloaded -consult Dr Forbes as is his bright cutter -renal ultrasound reviewed -monitor BMP daily Code(s): N17.9 - ACUTE KIDNEY FAILURE, UNSPECIFIED Qualifiers: Acute renal failure type: unspecified Qualified Code(s): N17.9 - Acute kidney failure, unspecified (3) Anemia Assessment/Plan: -stable -monitor Code(s): D64.9 - ANEMIA, UNSPECIFIED (4) Bladder cancer Assessment/Plan: -suprapubic catheter in place Code(s): C67.9 - MALIGNANT NEOPLASM OF BLADDER, UNSPECIFIED (5) Chronic kidney disease Assessment/Plan: -nephrology consulted Code(s): N18.9 - CHRONIC KIDNEY DISEASE, UNSPECIFIED Qualifiers: Chronic kidney disease stage: stage 4 (severe) Qualified Code(s): N18.4 - Chronic kidney disease, stage 4 (severe) (6) Diabetes Assessment/Plan: -patient generally on high dose of insulin as an outpatient -however patient admits to a poor diet -will place on diabetic diet -monitor glucose levels and cover with SSI -since on diet, will start on levemir as well -normally on levemir 60 units qhs, will start 20 units bid Code(s): E11.9 - TYPE 2 DIABETES MELLITUS WITHOUT COMPLICATIONS Qualifiers: Diabetes mellitus type: type 2 Diabetes mellitus group home insulin use: with intermodal customer service use Diabetes mellitus complication status: with kidney complications Diabetes mellitus complication detail: with chronic kidney disease Chronic kidney disease stage: stage 4 (severe) Qualified Code(s): E11.22 - Type 2 diabetes mellitus with diabetic chronic kidney disease; N18.4 - Chronic kidney disease, stage 4 (severe); N18.4 - Chronic kidney disease, stage 4 (severe); N18.4 - Chronic kidney disease, stage 4 (severe); N18.4 - Chronic kidney disease, stage 4 (severe); Z79.4 - roasterman (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 of insulin; Z79.4 - alf (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 of insulin; Z79.4 - alf (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 of insulin; Z79.4 - roasterman (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 of insulin (7) HLD (hyperlipidemia) Assessment/Plan: -continue statin Code(s): E78.5 - HYPERLIPIDEMIA, UNSPECIFIED (8) Hypertension Assessment/Plan: -slightly elevated -sodium controlled diet -continue cardura and hydralazine -stop IVF Code(s): I10 - ESSENTIAL (PRIMARY) HYPERTENSION Qualifiers: Hypertension type: essential hypertension Qualified Code(s): I10 - Essential (primary) hypertension (9) Metabolic acidosis Assessment/Plan: -was on bicarb supplementation at discharge in October -currently not on ambulatory list -consult nephrology Code(s): E87.2 - ACIDOSIS
--- NOTE | 2018-06-19 17:20 | EKG ---
Test Reason : Blood Pressure : / mmHG Vent. Rate : 102 BPM Atrial Rate : 102 BPM P-R Int : 186 ms QRS Dur : 104 ms QT Int : 360 ms P-R-T Axes : 011 -53 057 degrees QTc Int : 469 ms SINUS TACHYCARDIA POSSIBLE LEFT ATRIAL ENLARGEMENT LEFT AXIS DEVIATION LEFT VENTRICULAR HYPERTROPHY ABNORMAL ECG WHEN COMPARED WITH ECG OF 27-NOV-2017 00:09, PREMATURE VENTRICULAR COMPLEXES ARE NO LONGER PRESENT T WAVE AMPLITUDE HAS INCREASED IN INFERIOR LEADS T WAVE AMPLITUDE HAS INCREASED IN LATERAL LEADS Confirmed by MD MORA, FAITH ([id number]) on 06/19/2018 5:20:06 PM Referred By: Confirmed By:FAITH VELAZCO MD
--- NOTE | 2018-06-19 21:41 | CON.NEP ---
Consult Consult Specialty:: nephrology Referred by:: dr lockett Reason for Consultation:: chronic metabolic acidosis - History of Present Illness Chief Complaint: sob and pleuritic pain History of Present Illness: sob and pleuritic chest pain x 3 days no fever no chills but feels cold from lack of heat in winter has usual leg edemas being ruled out for pe le dopplers neg for dvt - Past Medical History TIGHTENER: Yes: CVA Cardio/Vascular: Yes: HTN, Hyperlipdemia Pulmonary: No: COPD, O2 Dependent Gastrointestinal: No: Ascites Hepatobiliary: No: Cirrhosis Renal/: Yes: Renal Inusuff, Other (lucy durand) Endocrine: Yes: Diabetes Mellitus - Past Surgical History Past Surgical History: Yes: Cystectomy (05/2014) - Alcohol/Substance Use Hx Alcohol Use: No History of Substance Use: reports: None - Smoking History Smoking history: Former smoker Have you smoked in the past 12 months: No If you are a former smoker, when did you quit?: 40 YRS AGO - Social History Usual Living Arrangement: Alone ADL: Independent 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 History of Recent Travel: No Home Medications - Allergies Allergies/Adverse Reactions: Allergies Allergy/AdvReac Type Severity Reaction Status Date / Time shrimp Allergy Intermediate Vomiting Verified 06/18/18 13:30 - Home Medications Home Medications: Ambulatory Orders Atorvastatin Ca [Lipitor] 10 mg PO DAILY 06/07/17 Cholecalciferol (Vitamin D3) [Vitamin D3] 1,000 unit PO DAILY 06/07/17 Cyanocobalamin [Vitamin B12 -] 1,000 mcg PO DAILY 06/07/17 Doxazosin Mesylate [Cardura -] 4 mg PO DAILY 06/07/17 Furosemide [Lasix -] 40 mg PO DAILY 06/07/17 Multivitamin [One Daily] 1 each PO DAILY 06/07/17 hydrALAZINE HCL [Apresoline -] 50 mg PO BID 06/07/17 Insulin Detemir [Levemir Flextouch] 60 unit SQ HS 11/05/17 Insulin Regular, Human [Humulin R U-500 Kwikpen] 0 unit SQ ACBK 11/05/17 Aspirin 81 mg PO DAILY 06/18/18 Gabapentin 300 mg PO DAILY 06/18/18 Family Disease History - Family Disease History Family Disease History: Diabetes: Mother, CA: Father Nephrology Consult - Height Height: 5 ft 7 in - Weight Weight: 278 lb 8 oz - BMI Body Mass Index (BMI): 43.6 - Lab Results CBC,BMP: CBC, BMP 06/19/18 06:05 06/19/18 06:05 Anion Gap: Anion Gap Anion Gap 10 MMOL/L (8-16) 06/19/18 06:05 - Physical Examination Vital Signs: Vital Signs Temperature 97.8 F 06/19/18 18:00 Pulse Rate 81 06/19/18 18:00 Respiratory Rate 20 06/19/18 18:00 Blood Pressure 142/82 06/19/18 18:00 O2 Sat by Pulse Oximetry (%) 96 06/19/18 09:00 Assessment/Plan metabolic acidosis normal anion gap mild worsening azotemia probably prerenal from acute medical problems Underlying CKD not clear that extra fluids are needed at this time he may hydrate enough orally as he stabilizes continue to monitor renal function v/q scan thursday will follow with you
[2018-06-19] MEDS: ATORVASTATIN CA 10 MG TABLET (FP) PO SCH (21:53)
[2018-06-20] MEDS: HEPARIN SOD,PORK IN 0.45% NACL 25,000 UNITS/500 ML INFUS.BAG IVPB SCH ×2 (04:27→19:46)
[2018-06-20] MEDS: INSULIN SLIDING SCALE (NOVOLOG) 1 VIAL SQ SCH ×4 (06:49→22:26)
[2018-06-20 06:51] LABS: HEMATOCRIT 33.9 % (35.4-49); HEMOGLOBIN 10.9 GM/dL (11.7-16.9); MCH 26.4 pg (25.7-33.7); MCHC 32.1 g/dl (32.0-35.9); MEAN CELL VOLUME 82.3 fl (80-96); MEAN PLT VOLUME 8.1 fl (7.5-11.1); PLATELET COUNT 247 K/MM3 (134-434); RBC 4.12 M/mm3 (4.00-5.60); RDW 15.8 % (11.9-15.9); WHITE BLOOD COUNT 7.9 K/mm3 (4.0-10.0)
[2018-06-20 07:50] LABS: ANION GAP 12 MMOL/L (8-16); BLOOD UREA NITROGEN 72 mg/dL (7-18); CALCIUM 8.5 mg/dL (8.5-10.1); CHLORIDE 119 mmol/L (98-107); CO2 9 mmol/L (21-32); CREATININE 3.3 mg/dL (0.55-1.3); GLUCOSE,RANDOM 160 mg/dL (74-106); MAGNESIUM 2.6 mg/dL (1.8-2.4); POTASSIUM 4.3 mmol/L (3.5-5.1); SODIUM 140 mmol/L (136-145)
[2018-06-20] MEDS ORDERED: PT OWN MED DRAWER 7, Y5N ONE (09:08)
[2018-06-20] MEDS: ASPIRIN 81 MG CHEWABLE TABLETS PO SCH (09:33)
[2018-06-20] MEDS: DOXAZOSIN MESYLATE 4 MG TABLET PO SCH (09:33)
[2018-06-20] MEDS: GABAPENTIN 300 MG CAPSULE (FP) PO SCH (09:33)
[2018-06-20] MEDS: MULTIVITAMINS (DAILY MVI) TABLET (FP) PO SCH (09:33)
[2018-06-20] MEDS: hydrALAZINE HCL 50 MG TABLET (FP) PO SCH ×3 (09:33→22:26)
[2018-06-20] MEDS: CYANOCOBALAMIN 1,000 MCG TABLET (FP) PO SCH (09:33)
[2018-06-20] MEDS: CHOLECALCIFEROL (VITAMIN D3) 1,000 UNIT TABLET (FP) PO SCH (09:33)
[2018-06-20] MEDS: INSULIN (LEVEMIR) 100 UNITS/ML UNITS SQ SCH ×2 (09:33→22:28)
--- NOTE | 2018-06-20 10:36 | PN ---
Progress Note, Physician Chief Complaint: Mr Isaacs still feels the chest pain with certain movements and deep breathing. No sob or n/v. - Current Medication List Current Medications: Active Medications Aspirin (Asa -) 81 mg PO DAILY [facility] Last Admin: 06/20/18 09:33 Dose: 81 mg Atorvastatin Calcium (Lipitor -) 10 mg PO HS [facility] Last Admin: 06/19/18 21:53 Dose: 10 mg Cholecalciferol (Vitamin D3 -) 1,000 unit PO DAILY [facility] Last Admin: 06/20/18 09:33 Dose: 1,000 unit Cyanocobalamin (Vitamin B12 -) 1,000 mcg PO DAILY [facility] Last Admin: 06/20/18 09:33 Dose: 1,000 mcg Doxazosin Mesylate (Cardura -) 4 mg PO DAILY [facility] Last Admin: 06/20/18 09:33 Dose: 4 mg Gabapentin (Neurontin -) 300 mg PO DAILY [facility] Last Admin: 06/20/18 09:33 Dose: 300 mg Heparin Sodium (Porcine) (Heparin -) 1,000 unit IVPUSH PRN PRN PRN Reason: Heparin Last Admin: 06/19/18 03:44 Dose: 1,000 unit Heparin Sodium (Porcine) (Heparin -) 5,000 unit IVPUSH PRN PRN PRN Reason: Heparin Hydralazine HCl (Apresoline -) 50 mg PO BID [facility] Last Admin: 06/20/18 09:33 Dose: 50 mg HEPARIN SOD,PORK IN 0.45% NACL (Heparin-1/2ns 25,000 Units/500) 25,000 units in 500 mls @ 20 mls/hr IVPB TITR [facility]; Protocol Last Admin: 06/20/18 04:27 Dose: 1,050 units/hr, 21 mls/hr Insulin Aspart (Novolog Vial Sliding Scale -) 1 vial SQ ACHS [facility]; Protocol Last Admin: 06/20/18 06:49 Dose: 2 units Insulin Detemir (Levemir Vial) 10 units SQ BID@0700,2200 [facility] Last Admin: 06/20/18 09:33 Dose: 10 units Multivitamins/Minerals/Vitamin C (Tab-A-Vit -) 1 tab PO DAILY [facility] Last Admin: 06/20/18 09:33 Dose: 1 tab Sodium Bicarbonate (Sodium Bicarbonate -) 1,300 mg PO TID [facility] - Objective Vital Signs: Vital Signs Temperature 36.7 C 06/20/18 10:00 Pulse Rate 79 06/20/18 10:00 Respiratory Rate 20 06/20/18 10:00 Blood Pressure 160/76 06/20/18 10:00 O2 Sat by Pulse Oximetry (%) 98 06/19/18 21:00 Constitutional: Yes: No Distress, Calm, Obese Cardiovascular: Yes: Regular Rate and Rhythm. No: Gallop, Murmur, Rub Respiratory: Yes: Regular, CTA Bilaterally. No: Rales, Rhonchi, Wheezes Gastrointestinal: Yes: Normal Bowel Sounds, Soft. No: Distention, Tenderness Extremities: Yes: WNL Edema: Yes Edema: LLE: 1+, RLE: 1+ Labs: CBC, BMP 06/20/18 06:00 06/20/18 06:00 INR, PTT INR 1.08 (0.83-1.09) 06/19/18 06:05 Problem List - Problems (1) Chest pain Code(s): R07.9 - CHEST PAIN, UNSPECIFIED (2) ARF (acute renal failure) Code(s): N17.9 - ACUTE KIDNEY FAILURE, UNSPECIFIED Qualifiers: Acute renal failure type: unspecified Qualified Code(s): N17.9 - Acute kidney failure, unspecified (3) Anemia Code(s): D64.9 - ANEMIA, UNSPECIFIED (4) Bladder cancer Code(s): C67.9 - MALIGNANT NEOPLASM OF BLADDER, UNSPECIFIED (5) Chronic kidney disease Code(s): N18.9 - CHRONIC KIDNEY DISEASE, UNSPECIFIED Qualifiers: Chronic kidney disease stage: stage 4 (severe) Qualified Code(s): N18.4 - Chronic kidney disease, stage 4 (severe) (6) Diabetes Code(s): E11.9 - TYPE 2 DIABETES MELLITUS WITHOUT COMPLICATIONS Qualifiers: Diabetes mellitus type: type 2 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: with halfway use Diabetes mellitus complication status: with kidney complications Diabetes mellitus complication detail: with chronic kidney disease Chronic kidney disease stage: stage 4 (severe) Qualified Code(s): E11.22 - Type 2 diabetes mellitus with diabetic chronic kidney disease; N18.4 - Chronic kidney disease, stage 4 (severe); N18.4 - Chronic kidney disease, stage 4 (severe); N18.4 - Chronic kidney disease, stage 4 (severe); N18.4 - Chronic kidney disease, stage 4 (severe); Z79.4 - assisted (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 of insulin; Z79.4 - 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 (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 of insulin; Z79.4 - assisted (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 of insulin; Z79.4 - assisted (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 of insulin (7) HLD (hyperlipidemia) Code(s): E78.5 - HYPERLIPIDEMIA, UNSPECIFIED (8) Hypertension Code(s): I10 - ESSENTIAL (PRIMARY) HYPERTENSION Qualifiers: Hypertension type: essential hypertension Qualified Code(s): I10 - Essential (primary) hypertension (9) Metabolic acidosis Code(s): E87.2 - ACIDOSIS Assessment/Plan (1) Chest pain Assessment/Plan: -pain still present -concern for PE, also considering pericarditis -continue heparin gtt -EKG does not show classic pericarditis findings, will follow up ECHO results -V/Q scan planned for tomorrow -if both negative, pleurisy vs costochondritis -will give short course of steroids (cannot use NSAIDs or colchicine secondary to renal function) Code(s): R07.9 - CHEST PAIN, UNSPECIFIED (2) ARF (acute renal failure) Assessment/Plan -considering hemoglobin A1c, suspect this is new baseline -will continue to monitor -nephrology following Code(s): N17.9 - ACUTE KIDNEY FAILURE, UNSPECIFIED Qualifiers: Acute renal failure type: unspecified Qualified Code(s): N17.9 - Acute kidney failure, unspecified (3) Anemia Assessment/Plan: -stable -monitor Code(s): D64.9 - ANEMIA, UNSPECIFIED (4) Bladder cancer Assessment/Plan: -suprapubic catheter in place Code(s): C67.9 - MALIGNANT NEOPLASM OF BLADDER, UNSPECIFIED (5) Chronic kidney disease Assessment/Plan: -as above Code(s): N18.9 - CHRONIC KIDNEY DISEASE, UNSPECIFIED Qualifiers: Chronic kidney disease stage: stage 4 (severe) Qualified Code(s): N18.4 - Chronic kidney disease, stage 4 (severe) (6) Diabetes Assessment/Plan: -on diabetic diet, patient is much better controlled -observed insulin requirement, used 12 units SSI -will not use levemir 20 units bid, will use 10 units -patient is non-compliant with his diet necessitating higher insulin doses as an outpatient Code(s): E11.9 - TYPE 2 DIABETES MELLITUS WITHOUT COMPLICATIONS Qualifiers: Diabetes mellitus type: type 2 Diabetes mellitus halfway insulin use: with halfway use Diabetes mellitus complication status: with kidney complications Diabetes mellitus complication detail: with chronic kidney disease Chronic kidney disease stage: stage 4 (severe) Qualified Code(s): E11.22 - Type 2 diabetes mellitus with diabetic chronic kidney disease; N18.4 - Chronic kidney disease, stage 4 (severe); N18.4 - Chronic kidney disease, stage 4 (severe); N18.4 - Chronic kidney disease, stage 4 (severe); N18.4 - Chronic kidney disease, stage 4 (severe); Z79.4 - 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 (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 of insulin; Z79.4 - 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 (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 of insulin; Z79.4 - assisted (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 of insulin; Z79.4 - assisted (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 of insulin (7) HLD (hyperlipidemia) Assessment/Plan: -continue statin Code(s): E78.5 - HYPERLIPIDEMIA, UNSPECIFIED (8) Hypertension Assessment/Plan: -remains elevated -possible white coat hypertension, but suspect needs adjustment to his medications -sodium controlled diet -increase hydralazine to tid Code(s): I10 - ESSENTIAL (PRIMARY) HYPERTENSION Qualifiers: Hypertension type: essential hypertension Qualified Code(s): I10 - Essential (primary) hypertension (9) Metabolic acidosis Assessment/Plan: -nephrology consulted -will start sodium bicarbonate 1300mg tid which he was on last admission Code(s): E87.2 - ACIDOSIS
[2018-06-20] MEDS: SODIUM BICARBONATE 650 MG TABLET PO SCH ×2 (13:50→22:25)
--- NOTE | 2018-06-20 14:37 | PN ---
Progress Note (short form) - Note Progress Note: PULMONARY NO OVERALL CHANGE IN EXAM OOB TO CHAIR /MIDSTERNAL PAIN WITH DEEP BREATH AND MOVEMENT REMAINS ON IV HEPARIN AWAITING V/Q SCAN MODERATE INDEX OF SUSPICION FOR PE CTA UNABLE TO BE DONE DUE TO WORSENING RENAL FAILURE D-DIMER LIKELY NOT HELPFUL IN THIS SETTING AGREE WITH EMPIRIC IV HEPARIN UNTIL PE CAN BE RULED OUT V/Q SCAN SCHEDULED FOR THURSDAY O2 SUPPLEMENTATION CONTINUE HOME MEDS CHECK ECHO/ESR ORDERED Tierra DELAROSA MD Problem List - Problems (1) Chest pain Code(s): R07.9 - CHEST PAIN, UNSPECIFIED (2) ARF (acute renal failure) Code(s): N17.9 - ACUTE KIDNEY FAILURE, UNSPECIFIED Qualifiers: Acute renal failure type: unspecified Qualified Code(s): N17.9 - Acute kidney failure, unspecified (3) Anemia Code(s): D64.9 - ANEMIA, UNSPECIFIED (4) Bladder cancer Code(s): C67.9 - MALIGNANT NEOPLASM OF BLADDER, UNSPECIFIED (5) CVA (cerebral vascular accident) Code(s): I63.9 - CEREBRAL INFARCTION, UNSPECIFIED (6) Chronic kidney disease Code(s): N18.9 - CHRONIC KIDNEY DISEASE, UNSPECIFIED Qualifiers: Chronic kidney disease stage: stage 4 (severe) Qualified Code(s): N18.4 - Chronic kidney disease, stage 4 (severe) (7) Diabetes Code(s): E11.9 - TYPE 2 DIABETES MELLITUS WITHOUT COMPLICATIONS Qualifiers: Diabetes mellitus type: type 2 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: with senior living use Diabetes mellitus complication status: with kidney complications Diabetes mellitus complication detail: with chronic kidney disease Chronic kidney disease stage: stage 4 (severe) Qualified Code(s): E11.22 - Type 2 diabetes mellitus with diabetic chronic kidney disease; N18.4 - Chronic kidney disease, stage 4 (severe); N18.4 - Chronic kidney disease, stage 4 (severe); N18.4 - Chronic kidney disease, stage 4 (severe); N18.4 - Chronic kidney disease, stage 4 (severe); Z79.4 - manager intermediate (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 of insulin; Z79.4 - prison (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 of insulin; Z79.4 - prison (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 of insulin; Z79.4 - prison (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 of insulin (8) H/O total cystectomy Code(s): Z98.89 - OTHER SPECIFIED POSTPROCEDURAL STATES * DO NOT USE * (9) HLD (hyperlipidemia) Code(s): E78.5 - HYPERLIPIDEMIA, UNSPECIFIED (10) Hypertension Code(s): I10 - ESSENTIAL (PRIMARY) HYPERTENSION Qualifiers: Hypertension type: essential hypertension Qualified Code(s): I10 - Essential (primary) hypertension (11) Obesity Code(s): E66.9 - OBESITY, UNSPECIFIED Qualifiers: Obesity type: due to excess calories Obesity classification: unspecified obesity classification Serious obesity comorbidity presence: unspecified whether serious comorbidity present Qualified Code(s): E66.09 - Other obesity due to excess calories (12) Urinary tract infection Code(s): N39.0 - URINARY TRACT INFECTION, SITE NOT SPECIFIED Qualifiers: Urinary tract infection type: site unspecified Hematuria presence: with hematuria Qualified Code(s): N39.0 - Urinary tract infection, site not specified; R31.9 - Hematuria, unspecified; R31.9 - Hematuria, unspecified
--- NOTE | 2018-06-20 18:22 | PN ---
Progress Note (short form) - Note Progress Note: CKD Metabolic acidosis normal anion gap mild worsening of azotemia probably prerenal from acute medical problems R/O PE Pleuritic chest Pain Current Medications Aspirin (Asa -) 81 mg PO DAILY [facility] Last Admin: 06/20/18 09:33 Dose: 81 mg Atorvastatin Calcium (Lipitor -) 10 mg PO HS [facility] Last Admin: 06/19/18 21:53 Dose: 10 mg Cholecalciferol (Vitamin D3 -) 1,000 unit PO DAILY [facility] Last Admin: 06/20/18 09:33 Dose: 1,000 unit Cyanocobalamin (Vitamin B12 -) 1,000 mcg PO DAILY [facility] Last Admin: 06/20/18 09:33 Dose: 1,000 mcg Doxazosin Mesylate (Cardura -) 4 mg PO DAILY [facility] Last Admin: 06/20/18 09:33 Dose: 4 mg Gabapentin (Neurontin -) 300 mg PO DAILY [facility] Last Admin: 06/20/18 09:33 Dose: 300 mg Heparin Sodium (Porcine) (Heparin -) 1,000 unit IVPUSH PRN PRN PRN Reason: Heparin Last Admin: 06/19/18 03:44 Dose: 1,000 unit Heparin Sodium (Porcine) (Heparin -) 5,000 unit IVPUSH PRN PRN PRN Reason: Heparin Hydralazine HCl (Apresoline -) 50 mg PO TID [facility] Last Admin: 06/20/18 13:50 Dose: 50 mg HEPARIN SOD,PORK IN 0.45% NACL (Heparin-1/2ns 25,000 Units/500) 25,000 units in 500 mls @ 20 mls/hr IVPB TITR [facility]; Protocol Last Admin: 06/20/18 04:27 Dose: 1,050 units/hr, 21 mls/hr Insulin Aspart (Novolog Vial Sliding Scale -) 1 vial SQ ACHS [facility]; Protocol Last Admin: 06/20/18 16:48 Dose: 2 units Insulin Detemir (Levemir Vial) 10 units SQ BID@0700,2200 [facility] Last Admin: 06/20/18 09:33 Dose: 10 units Multivitamins/Minerals/Vitamin C (Tab-A-Vit -) 1 tab PO DAILY [facility] Last Admin: 06/20/18 09:33 Dose: 1 tab Sodium Bicarbonate (Sodium Bicarbonate -) 1,300 mg PO TID [facility] Last Admin: 06/20/18 13:50 Dose: 1,300 mg Last Vital Signs Temp Pulse Resp BP Pulse Ox 97.9 F 78 20 131/71 98 06/20/18 14:00 06/20/18 14:00 06/20/18 14:00 06/20/18 14:00 06/20/18 09:00 lungs clear Heart reg abd soft ext mild edema CBC, BMP 06/20/18 06:00 06/20/18 06:00 IMP- CKD met acidosis no hyperkalemia He used to be on bicarb replacement agree with resumption at 1300mg Plan- abg on room air
[2018-06-20 19:18] LABS: ALLENS TEST POSITIVE; ARTERIAL BLD GAS O2 SATURATION 97.6 % (90-98.9); ARTERIAL BLOOD GAS PCO2 23.3 mmHg (35-45)
[2018-06-20 19:21] LABS: ARTERIAL BLOOD GAS BASE EXCESS -17.3 meq/l (-2-2); ARTERIAL BLOOD GAS pH 7.21 (7.35-7.45)
[2018-06-20] MEDS: SODIUM BICARBONATE 8.4% - 150 MEQ in DEXTROSE 5%-WATER - 1,000 ML IVPB SCH (22:25)
[2018-06-20] MEDS: ATORVASTATIN CA 10 MG TABLET (FP) PO SCH (22:28)
[2018-06-21] MEDS: HEPARIN SOD,PORK IN 0.45% NACL 25,000 UNITS/500 ML INFUS.BAG IVPB SCH ×2 (01:11→19:49)
[2018-06-21] MEDS: hydrALAZINE HCL 50 MG TABLET (FP) PO SCH ×3 (06:41→21:45)
[2018-06-21] MEDS: SODIUM BICARBONATE 650 MG TABLET PO SCH ×3 (06:41→21:45)
[2018-06-21] MEDS: INSULIN (LEVEMIR) 100 UNITS/ML UNITS SQ SCH ×2 (06:42→21:45)
[2018-06-21] MEDS: INSULIN SLIDING SCALE (NOVOLOG) 1 VIAL SQ SCH ×4 (06:42→21:45)
[2018-06-21 07:12] LABS: HEMATOCRIT 31.6 % (35.4-49); HEMOGLOBIN 10.2 GM/dL (11.7-16.9); MCH 26.6 pg (25.7-33.7); MCHC 32.2 g/dl (32.0-35.9); MEAN CELL VOLUME 82.8 fl (80-96); MEAN PLT VOLUME 8.2 fl (7.5-11.1); PLATELET COUNT 226 K/MM3 (134-434); RBC 3.82 M/mm3 (4.00-5.60); WHITE BLOOD COUNT 6.7 K/mm3 (4.0-10.0)
[2018-06-21 07:27] LABS: ANION GAP 10 MMOL/L (8-16); BLOOD UREA NITROGEN 70 mg/dL (7-18); CHLORIDE 118 mmol/L (98-107); CO2 11 mmol/L (21-32); CREATININE 3.2 mg/dL (0.55-1.3); GLUCOSE,RANDOM 191 mg/dL (74-106); MAGNESIUM 2.5 mg/dL (1.8-2.4); PHOSPHOROUS 3.6 mg/dL (2.5-4.9); POTASSIUM 4.3 mmol/L (3.5-5.1); SODIUM 139 mmol/L (136-145)
[2018-06-21] MEDS ORDERED: PT OWN MED DRAWER 7, Y5N ONE ×6 (09:10→16:02)
[2018-06-21] MEDS: ASPIRIN 81 MG CHEWABLE TABLETS PO SCH (09:49)
[2018-06-21] MEDS: GABAPENTIN 300 MG CAPSULE (FP) PO SCH (09:49)
[2018-06-21] MEDS: CHOLECALCIFEROL (VITAMIN D3) 1,000 UNIT TABLET (FP) PO SCH (09:49)
[2018-06-21] MEDS: CYANOCOBALAMIN 1,000 MCG TABLET (FP) PO SCH (09:49)
[2018-06-21] MEDS: MULTIVITAMINS (DAILY MVI) TABLET (FP) PO SCH (09:49)
--- NOTE | 2018-06-21 10:57 | PN ---
Progress Note, Physician Chief Complaint: Pt sitting in chair in no acute distress. reports chest pain is slightly improved, worse w/ movement/inspiration. Denies any sob, n/v/d - Current Medication List Current Medications: Active Medications Aspirin (Asa -) 81 mg PO DAILY [facility] Last Admin: 06/21/18 09:49 Dose: 81 mg Atorvastatin Calcium (Lipitor -) 10 mg PO HS [facility] Last Admin: 06/20/18 22:28 Dose: 10 mg Cholecalciferol (Vitamin D3 -) 1,000 unit PO DAILY [facility] Last Admin: 06/21/18 09:49 Dose: 1,000 unit Cyanocobalamin (Vitamin B12 -) 1,000 mcg PO DAILY [facility] Last Admin: 06/21/18 09:49 Dose: 1,000 mcg Doxazosin Mesylate (Cardura -) 4 mg PO DAILY [facility] Last Admin: 06/20/18 09:33 Dose: 4 mg Gabapentin (Neurontin -) 300 mg PO DAILY [facility] Last Admin: 06/21/18 09:49 Dose: 300 mg Heparin Sodium (Porcine) (Heparin -) 1,000 unit IVPUSH PRN PRN PRN Reason: Heparin Last Admin: 06/19/18 03:44 Dose: 1,000 unit Heparin Sodium (Porcine) (Heparin -) 5,000 unit IVPUSH PRN PRN PRN Reason: Heparin Hydralazine HCl (Apresoline -) 50 mg PO TID [facility] Last Admin: 06/21/18 06:41 Dose: 50 mg HEPARIN SOD,PORK IN 0.45% NACL (Heparin-1/2ns 25,000 Units/500) 25,000 units in 500 mls @ 20 mls/hr IVPB TITR [facility]; Protocol Last Admin: 06/21/18 01:11 Dose: 1,050 units/hr, 21 mls/hr Sodium Bicarbonate 150 meq/ (Dextrose) 1,150 mls @ 75 mls/hr IVPB Q15H [facility] Last Admin: 06/20/18 22:25 Dose: 75 mls/hr Insulin Aspart (Novolog Vial Sliding Scale -) 1 vial SQ ACHS [facility]; Protocol Last Admin: 06/21/18 06:42 Dose: 4 units Insulin Detemir (Levemir Vial) 10 units SQ BID@0700,2200 [facility] Last Admin: 06/21/18 06:42 Dose: 10 units Multivitamins/Minerals/Vitamin C (Tab-A-Vit -) 1 tab PO DAILY [facility] Last Admin: 06/21/18 09:49 Dose: 1 tab Sodium Bicarbonate (Sodium Bicarbonate -) 1,300 mg PO TID [facility] Last Admin: 06/21/18 06:41 Dose: 1,300 mg - Objective Vital Signs: Vital Signs Temperature 97.9 F 06/21/18 10:00 Pulse Rate 80 06/21/18 10:00 Respiratory Rate 20 06/21/18 10:00 Blood Pressure 138/77 06/21/18 10:00 O2 Sat by Pulse Oximetry (%) 98 06/21/18 09:00 Constitutional: Yes: Well Nourished, No Distress, Calm Cardiovascular: Yes: Regular Rate and Rhythm Respiratory: Yes: Regular, CTA Bilaterally. No: Accessory Muscle Use, SOB, Tachypnea, Wheezes Gastrointestinal: Yes: WNL, Normal Bowel Sounds, Soft. No: Distention, Tenderness Genitourinary: Yes: WNL, Other (suprapubic in place) Edema: Yes Edema: LLE: 1+, RLE: 1+ Neurological: Yes: WNL, Alert, Oriented Psychiatric: Yes: WNL, Alert, Oriented Labs: CBC, BMP 06/21/18 05:50 06/21/18 05:50 INR, PTT INR 1.08 (0.83-1.09) 06/19/18 06:05 Assessment/Plan (1) Chest pain Assessment/Plan: mild improvement, persists, worse w/ movement, breathing and exertion suspect musculoskeletal, will need to r/o PE, pericarditis continue heparin gtt V/Q scan tomorrow am echo without changes pulm following Code(s): R07.9 - CHEST PAIN, UNSPECIFIED (2) ARF (acute renal failure) Assessment/Plan at baseline nephrology following Code(s): N17.9 - ACUTE KIDNEY FAILURE, UNSPECIFIED Qualifiers: Acute renal failure type: unspecified Qualified Code(s): N17.9 - Acute kidney failure, unspecified (3) Anemia Assessment/Plan: stable Code(s): D64.9 - ANEMIA, UNSPECIFIED (4) Bladder cancer Assessment/Plan: suprapubic catheter in place Code(s): C67.9 - MALIGNANT NEOPLASM OF BLADDER, UNSPECIFIED (5) Chronic kidney disease Assessment/Plan: as above Code(s): N18.9 - CHRONIC KIDNEY DISEASE, UNSPECIFIED Qualifiers: Chronic kidney disease stage: stage 4 (severe) Qualified Code(s): N18.4 - Chronic kidney disease, stage 4 (severe) (6) Diabetes Assessment/Plan: stable continue BGM, Insulin sliding scale/levemir Code(s): E11.9 - TYPE 2 DIABETES MELLITUS WITHOUT COMPLICATIONS Qualifiers: Diabetes mellitus type: type 2 Diabetes mellitus usp insulin use: 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 Diabetes mellitus complication status: with kidney complications Diabetes mellitus complication detail: with chronic kidney disease Chronic kidney disease stage: stage 4 (severe) Qualified Code(s): E11.22 - Type 2 diabetes mellitus with diabetic chronic kidney disease; N18.4 - Chronic kidney disease, stage 4 (severe); N18.4 - Chronic kidney disease, stage 4 (severe); N18.4 - Chronic kidney disease, stage 4 (severe); N18.4 - Chronic kidney disease, stage 4 (severe); Z79.4 - USP (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 of insulin; Z79.4 - USP (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 of insulin; Z79.4 - rat exterminator (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 of insulin; Z79.4 - USP (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 of insulin (7) HLD (hyperlipidemia) Assessment/Plan: continue statin Code(s): E78.5 - HYPERLIPIDEMIA, UNSPECIFIED (8) Hypertension Assessment/Plan: improving continue hydralazine low na diet monitor Code(s): I10 - ESSENTIAL (PRIMARY) HYPERTENSION Qualifiers: Hypertension type: essential hypertension Qualified Code(s): I10 - Essential (primary) hypertension (9) Metabolic acidosis Assessment/Plan: abg reviewed- improving continue bicarb drip nephrology following Code(s): E87.2 - ACIDOSIS
[2018-06-21 11:10] LABS: ARTERIAL BLD GAS O2 SATURATION 90.2 % (90-98.9); ARTERIAL BLOOD GAS BASE EXCESS -13.4 meq/l (-2-2); ARTERIAL BLOOD GAS PCO2 27.7 mmHg (35-45); ARTERIAL BLOOD GAS pH 7.26 (7.35-7.45)
--- NOTE | 2018-06-21 11:21 | PN ---
Progress Note (short form) - Note Progress Note: Renal follow up for CKD and metabolic acidosis Pt seen and examined at the bedside continues to have mild sob no N/V/D making urine via urostomy Vital Signs Temperature 97.9 F 06/21/18 10:00 Pulse Rate 80 06/21/18 10:00 Respiratory Rate 20 06/21/18 10:00 Blood Pressure 138/77 06/21/18 10:00 O2 Sat by Pulse Oximetry (%) 98 06/21/18 09:00 Intake & Output 06/18/18 06/19/18 06/20/18 06/21/18 23:59 23:59 23:59 23:59 Intake Total 135 1381 1104 1259.5 Output Total 2400 2750 1800 Balance 135 -1019 -1646 -540.5 Weight 127.732 kg 126.325 kg 126.325 kg 131.088 kg NAD awake and alert neck supple, no JVD RRR, No M/R CTA + edema in LE CBC, BMP 06/21/18 05:50 06/21/18 05:50 Current Medications Aspirin (Asa -) 81 mg PO DAILY [facility] Last Admin: 06/21/18 09:49 Dose: 81 mg Atorvastatin Calcium (Lipitor -) 10 mg PO HS [facility] Last Admin: 06/20/18 22:28 Dose: 10 mg Cholecalciferol (Vitamin D3 -) 1,000 unit PO DAILY [facility] Last Admin: 06/21/18 09:49 Dose: 1,000 unit Cyanocobalamin (Vitamin B12 -) 1,000 mcg PO DAILY [facility] Last Admin: 06/21/18 09:49 Dose: 1,000 mcg Doxazosin Mesylate (Cardura -) 4 mg PO DAILY [facility] Last Admin: 06/20/18 09:33 Dose: 4 mg Gabapentin (Neurontin -) 300 mg PO DAILY [facility] Last Admin: 06/21/18 09:49 Dose: 300 mg Heparin Sodium (Porcine) (Heparin -) 1,000 unit IVPUSH PRN PRN PRN Reason: Heparin Last Admin: 06/19/18 03:44 Dose: 1,000 unit Heparin Sodium (Porcine) (Heparin -) 5,000 unit IVPUSH PRN PRN PRN Reason: Heparin Hydralazine HCl (Apresoline -) 50 mg PO TID [facility] Last Admin: 06/21/18 06:41 Dose: 50 mg HEPARIN SOD,PORK IN 0.45% NACL (Heparin-1/2ns 25,000 Units/500) 25,000 units in 500 mls @ 20 mls/hr IVPB TITR [facility]; Protocol Last Admin: 06/21/18 01:11 Dose: 1,050 units/hr, 21 mls/hr Sodium Bicarbonate 150 meq/ (Dextrose) 1,150 mls @ 75 mls/hr IVPB Q15H [facility] Last Admin: 06/20/18 22:25 Dose: 75 mls/hr Insulin Aspart (Novolog Vial Sliding Scale -) 1 vial SQ ACHS [facility]; Protocol Last Admin: 06/21/18 06:42 Dose: 4 units Insulin Detemir (Levemir Vial) 10 units SQ BID@0700,2200 [facility] Last Admin: 06/21/18 06:42 Dose: 10 units Multivitamins/Minerals/Vitamin C (Tab-A-Vit -) 1 tab PO DAILY [facility] Last Admin: 06/21/18 09:49 Dose: 1 tab Sodium Bicarbonate (Sodium Bicarbonate -) 1,300 mg PO TID [facility] Last Admin: 06/21/18 06:41 Dose: 1,300 mg This is a 67 year old AA gentleman with of CKD stage 4, Hx of bladder Ca now with urostomy formation, COPD, DM, CHF who presented with CP and SOB and found to have high BUN/Cr and metabolic acidosis #CKD stage 4 with progressive rise in BUN/Cr vs subacute injury #Non-anion gap metabolic acidosis in setting of chronic urostomy #COPD #DM Renal function slightly worse then baseline but may show low progressive CKD no acute indication for DIRECTOR OF DESIGN at the present time Continue sodium bicarb 1300mg TID for management of metabolic acidosis caused by urethral diversion can d/c IVF continue oral Lasix once daily Trend renal function and electrolytes daily Freddie Forbes DO
[2018-06-21 11:23] LABS: ALLENS TEST POSITIVE
[2018-06-21] MEDS: DOXAZOSIN MESYLATE 4 MG TABLET PO SCH (11:55)
--- NOTE | 2018-06-21 12:06 | ECHO ---
Name: MONY THOMAS Exam:Adult Echocardiogram Study Date: 06/21/2018 09:10 AM Age: 67 yrs Reason For Study: R/O CHF Height: 67 in Weight: 285 lb BSA: 2.4 m2 MMode/2D Measurements & Calculations IVSd: 1.5 cm Ao root diam: 3.9 cm LVIDd: 4.0 cm LA dimension: 3.2 cm LVIDs: 2.9 cm LVPWd: 1.6 cm EDV(Teich): 68.2 ml ESV(Teich): 33.2 ml Doppler Measurements & Calculations MV E max lobo: 77.1 cm/sec Med Peak E' Lobo: 6.5 cm/sec MV A max lobo: 127.6 cm/sec Med E/e': 11.8 MV E/A: 0.60 Lat Peak E' Lobo: 6.3 cm/sec MV dec time: 0.12 sec Lat E/e': 12.2 Procedure A complete two-dimensional transthoracic echocardiogram was performed (2D, M-mode, Doppler and color flow Doppler). The study was technically good with many images being of high quality. Left Ventricle The left ventricle is normal in size. There is moderate concentric left ventricular hypertrophy. Left ventricular systolic function is normal. Ejection Fraction = 60-65%. TDI reveals mild impaired relaxa tion with normal filling pressure (E/E' 12). No regional wall motion abnormalities noted. Right Ventricle The right ventricle is normal size. The right ventricular systolic function is normal. Atria The left atrial size is normal. Right atrial size is normal. Mitral Valve There is mild mitral annular calcification. There is mild mitral regurgitation. Tricuspid Valve The tricuspid valve is normal in structure and function. There is Trace to mild tricuspid regurgitati on. Aortic Valve The aortic valve is normal in structure and function. No aortic regurgitation is present. Pulmonic Valve The pulmonic valve is not well visualized. Trace pulmonic valvular regurgitation. Great Vessels The aortic root is normal size. Pericardium/Pleura There is no pericardial effusion. Interpretation Summary The left ventricle is normal in size. There is moderate concentric left ventricular hypertrophy. Left ventricular systolic function is normal. No regional wall motion abnormalities noted. Ejection Fraction = 60-65%. TDI reveals mild impaired relaxation with normal filling pressure (E/E' 12) The right ventricular systolic function is normal. The left atrial size is normal. Right atrial size is normal. There is mild mitral annular calcification. There is mild mitral regurgitation. There is Trace to mild tricuspid regurgitation. Trace pulmonic valvular regurgitation. There is no pericardial effusion. When compared to study dated 06/10/17, likely no significant changes Quintin Boyer MD 06/21/2018 12:05 PM
--- NOTE | 2018-06-21 12:44 | PN ---
Progress Note (short form) - Note Progress Note: PULMONARY Still with pleuritic chest pain worse with inspiration and movements. On heparin gtt. Vital Signs Period Temp Pulse Resp BP Sys/Argueta Pulse Ox Last 24 Hr 97.9 F-98.3 F 76-91 18-20 131-155/67-80 97-98 Gen: NAD in chair Heart: RRR Lung: decreased breath sounds at the bases Abd: soft, nontender Ext: no edema CBC, BMP 06/21/18 05:50 06/21/18 05:50 Active Medications Aspirin (Asa -) 81 mg PO DAILY [facility] Last Admin: 06/21/18 09:49 Dose: 81 mg Atorvastatin Calcium (Lipitor -) 10 mg PO HS [facility] Last Admin: 06/20/18 22:28 Dose: 10 mg Cholecalciferol (Vitamin D3 -) 1,000 unit PO DAILY [facility] Last Admin: 06/21/18 09:49 Dose: 1,000 unit Cyanocobalamin (Vitamin B12 -) 1,000 mcg PO DAILY [facility] Last Admin: 06/21/18 09:49 Dose: 1,000 mcg Doxazosin Mesylate (Cardura -) 4 mg PO DAILY [facility] Last Admin: 06/21/18 11:55 Dose: 4 mg Gabapentin (Neurontin -) 300 mg PO DAILY [facility] Last Admin: 06/21/18 09:49 Dose: 300 mg Heparin Sodium (Porcine) (Heparin -) 1,000 unit IVPUSH PRN PRN PRN Reason: Heparin Last Admin: 06/19/18 03:44 Dose: 1,000 unit Heparin Sodium (Porcine) (Heparin -) 5,000 unit IVPUSH PRN PRN PRN Reason: Heparin Hydralazine HCl (Apresoline -) 50 mg PO TID [facility] Last Admin: 06/21/18 06:41 Dose: 50 mg HEPARIN SOD,PORK IN 0.45% NACL (Heparin-1/2ns 25,000 Units/500) 25,000 units in 500 mls @ 20 mls/hr IVPB TITR [facility]; Protocol Last Admin: 06/21/18 01:11 Dose: 1,050 units/hr, 21 mls/hr Sodium Bicarbonate 150 meq/ (Dextrose) 1,150 mls @ 75 mls/hr IVPB Q15H [facility] Last Admin: 06/20/18 22:25 Dose: 75 mls/hr Insulin Aspart (Novolog Vial Sliding Scale -) 1 vial SQ ACHS [facility]; Protocol Last Admin: 06/21/18 12:08 Dose: 4 units Insulin Detemir (Levemir Vial) 10 units SQ BID@0700,2200 [facility] Last Admin: 06/21/18 06:42 Dose: 10 units Multivitamins/Minerals/Vitamin C (Tab-A-Vit -) 1 tab PO DAILY [facility] Last Admin: 06/21/18 09:49 Dose: 1 tab Sodium Bicarbonate (Sodium Bicarbonate -) 1,300 mg PO TID [facility] Last Admin: 06/21/18 06:41 Dose: 1,300 mg A/P Pleuritic Chest Pain r/o PE Acute on Chronic Renal Failure Metabolic Acidosis h/o Bladder Ca HTN DM Hyperlipidemia - continue anticoagulation - for V/Q scan - monitor urine output, creatinine - bicarb - O2 to keep SPo2 >90%
[2018-06-21] MEDS: SODIUM BICARBONATE 8.4% - 150 MEQ in DEXTROSE 5%-WATER - 1,000 ML IVPB SCH (16:04)
[2018-06-21] MEDS: ATORVASTATIN CA 10 MG TABLET (FP) PO SCH (21:44)
[2018-06-22] MEDS: HEPARIN NA (PORCINE) 5,000 UNITS/ML 1ML VIAL IVPUSH PRN (02:55)
[2018-06-22] MEDS: hydrALAZINE HCL 50 MG TABLET (FP) PO SCH ×2 (06:02→14:33)
[2018-06-22] MEDS: SODIUM BICARBONATE 8.4% - 150 MEQ in DEXTROSE 5%-WATER - 1,000 ML IVPB SCH (06:02)
[2018-06-22] MEDS: SODIUM BICARBONATE 650 MG TABLET PO SCH ×2 (06:02→14:33)
[2018-06-22 06:44] LABS: BASO % 0.4 % (0-2.0); EOS % 5.2 % (0-4.5); HEMATOCRIT 30.2 % (35.4-49); HEMOGLOBIN 9.9 GM/dL (11.7-16.9); LYMPH % 12.2 % (8-40); MCH 26.7 pg (25.7-33.7); MCHC 32.9 g/dl (32.0-35.9); MEAN CELL VOLUME 81.2 fl (80-96); MONO % 9.7 % (3.8-10.2); NEUT % 72.5 % (42.8-82.8); PLATELET COUNT 223 K/MM3 (134-434); RBC 3.72 M/mm3 (4.00-5.60); RDW 16.2 % (11.9-15.9); WHITE BLOOD COUNT 7.2 K/mm3 (4.0-10.0)
[2018-06-22] MEDS: INSULIN (LEVEMIR) 100 UNITS/ML UNITS SQ SCH (06:56)
[2018-06-22] MEDS: INSULIN SLIDING SCALE (NOVOLOG) 1 VIAL SQ SCH ×3 (06:57→17:26)
[2018-06-22 07:21] LABS: ANION GAP 10 MMOL/L (8-16); BLOOD UREA NITROGEN 62 mg/dL (7-18); CALCIUM 7.8 mg/dL (8.5-10.1); CHLORIDE 115 mmol/L (98-107); CO2 15 mmol/L (21-32); CREATININE 2.8 mg/dL (0.55-1.3); GLUCOSE,RANDOM 237 mg/dL (74-106); MAGNESIUM 2.3 mg/dL (1.8-2.4); PHOSPHOROUS 3.1 mg/dL (2.5-4.9); SODIUM 139 mmol/L (136-145)
[2018-06-22 08:57] VITALS: TEMP 97.8
[2018-06-22] MEDS ORDERED: PT OWN MED DRAWER 7, Y5N ONE (09:12)
[2018-06-22] MEDS: GABAPENTIN 300 MG CAPSULE (FP) PO SCH (09:15)
[2018-06-22] MEDS: ASPIRIN 81 MG CHEWABLE TABLETS PO SCH (09:15)
[2018-06-22] MEDS: CHOLECALCIFEROL (VITAMIN D3) 1,000 UNIT TABLET (FP) PO SCH (09:15)
[2018-06-22] MEDS: CYANOCOBALAMIN 1,000 MCG TABLET (FP) PO SCH (09:15)
[2018-06-22] MEDS: MULTIVITAMINS (DAILY MVI) TABLET (FP) PO SCH (09:15)
[2018-06-22] MEDS: DOXAZOSIN MESYLATE 4 MG TABLET PO SCH (09:37)
--- NOTE | 2018-06-22 12:14 | PN ---
Progress Note (short form) - Note Progress Note: Renal follow up for CKD and metabolic acidosis pt seen and examined at the bedside no acute complaints no sob, cp, abd pain Vital Signs Temperature 97.8 F 06/22/18 08:55 Pulse Rate 82 06/22/18 08:55 Respiratory Rate 18 06/22/18 08:55 Blood Pressure 157/78 06/22/18 08:55 O2 Sat by Pulse Oximetry (%) 97 06/22/18 08:37 Intake & Output 06/19/18 06/20/18 06/21/18 06/22/18 23:59 23:59 23:59 23:59 Intake Total 1381 1104 3119.5 370 Output Total 2400 2750 3500 Balance -1019 -1646 -380.5 370 Weight 126.325 kg 126.325 kg 131.088 kg NAD awake and alert + edema in LE CBC, BMP 06/22/18 06:00 06/22/18 06:00 Laboratory Tests 06/22/18 06:00 Creat Clearance w eGFR 22.58 Calcium 7.8 L Phosphorus 3.1 Magnesium 2.3 Current Medications Aspirin (Asa -) 81 mg PO DAILY [facility] Last Admin: 06/22/18 09:15 Dose: 81 mg Atorvastatin Calcium (Lipitor -) 10 mg PO HS [facility] Last Admin: 06/21/18 21:44 Dose: 10 mg Cholecalciferol (Vitamin D3 -) 1,000 unit PO DAILY [facility] Last Admin: 06/22/18 09:15 Dose: 1,000 unit Cyanocobalamin (Vitamin B12 -) 1,000 mcg PO DAILY [facility] Last Admin: 06/22/18 09:15 Dose: 1,000 mcg Doxazosin Mesylate (Cardura -) 4 mg PO DAILY [facility] Last Admin: 06/22/18 09:37 Dose: 4 mg Gabapentin (Neurontin -) 300 mg PO DAILY [facility] Last Admin: 06/22/18 09:15 Dose: 300 mg Heparin Sodium (Porcine) (Heparin -) 1,000 unit IVPUSH PRN PRN PRN Reason: Heparin Last Admin: 06/22/18 02:55 Dose: 1,000 unit Heparin Sodium (Porcine) (Heparin -) 5,000 unit IVPUSH PRN PRN PRN Reason: Heparin Hydralazine HCl (Apresoline -) 50 mg PO TID [facility] Last Admin: 06/22/18 06:02 Dose: 50 mg HEPARIN SOD,PORK IN 0.45% NACL (Heparin-1/2ns 25,000 Units/500) 25,000 units in 500 mls @ 20 mls/hr IVPB TITR [facility]; Protocol Last Titration: 06/22/18 02:55 Dose: 1,250 units/hr, 25 mls/hr Insulin Aspart (Novolog Vial Sliding Scale -) 1 vial SQ ACHS [facility]; Protocol Last Admin: 06/22/18 06:57 Dose: 4 units Insulin Detemir (Levemir Vial) 10 units SQ BID@0700,2200 [facility] Last Admin: 06/22/18 06:56 Dose: 10 units Multivitamins/Minerals/Vitamin C (Tab-A-Vit -) 1 tab PO DAILY [facility] Last Admin: 06/22/18 09:15 Dose: 1 tab Sodium Bicarbonate (Sodium Bicarbonate -) 1,300 mg PO TID [facility] Last Admin: 06/22/18 06:02 Dose: 1,300 mg This is a 67 year old AA gentleman with of CKD stage 4, Hx of bladder Ca now with urostomy formation, COPD, DM, CHF who presented with CP and SOB and found to have high BUN/Cr and metabolic acidosis #CKD stage 4 with progressive rise in BUN/Cr vs subacute injury #Non-anion gap metabolic acidosis in setting of chronic urostomy #COPD #DM Renal function improved and at baseline 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
--- NOTE | 2018-06-22 12:14 | PN ---
Progress Note, Physician History of Present Illness: pulmonary alert,no feeling better,cp improving - Current Medication List Current Medications: Active Medications Aspirin (Asa -) 81 mg PO DAILY [facility] Last Admin: 06/22/18 09:15 Dose: 81 mg Atorvastatin Calcium (Lipitor -) 10 mg PO HS [facility] Last Admin: 06/21/18 21:44 Dose: 10 mg Cholecalciferol (Vitamin D3 -) 1,000 unit PO DAILY [facility] Last Admin: 06/22/18 09:15 Dose: 1,000 unit Cyanocobalamin (Vitamin B12 -) 1,000 mcg PO DAILY [facility] Last Admin: 06/22/18 09:15 Dose: 1,000 mcg Doxazosin Mesylate (Cardura -) 4 mg PO DAILY [facility] Last Admin: 06/22/18 09:37 Dose: 4 mg Gabapentin (Neurontin -) 300 mg PO DAILY [facility] Last Admin: 06/22/18 09:15 Dose: 300 mg Heparin Sodium (Porcine) (Heparin -) 1,000 unit IVPUSH PRN PRN PRN Reason: Heparin Last Admin: 06/22/18 02:55 Dose: 1,000 unit Heparin Sodium (Porcine) (Heparin -) 5,000 unit IVPUSH PRN PRN PRN Reason: Heparin Hydralazine HCl (Apresoline -) 50 mg PO TID [facility] Last Admin: 06/22/18 06:02 Dose: 50 mg HEPARIN SOD,PORK IN 0.45% NACL (Heparin-1/2ns 25,000 Units/500) 25,000 units in 500 mls @ 20 mls/hr IVPB TITR [facility]; Protocol Last Titration: 06/22/18 02:55 Dose: 1,250 units/hr, 25 mls/hr Insulin Aspart (Novolog Vial Sliding Scale -) 1 vial SQ ACHS [facility]; Protocol Last Admin: 06/22/18 06:57 Dose: 4 units Insulin Detemir (Levemir Vial) 10 units SQ BID@0700,2200 [facility] Last Admin: 06/22/18 06:56 Dose: 10 units Multivitamins/Minerals/Vitamin C (Tab-A-Vit -) 1 tab PO DAILY [facility] Last Admin: 06/22/18 09:15 Dose: 1 tab Sodium Bicarbonate (Sodium Bicarbonate -) 1,300 mg PO TID [facility] Last Admin: 06/22/18 06:02 Dose: 1,300 mg - Objective Vital Signs: Vital Signs Temperature 97.8 F 06/22/18 08:55 Pulse Rate 82 06/22/18 08:55 Respiratory Rate 18 06/22/18 08:55 Blood Pressure 157/78 06/22/18 08:55 O2 Sat by Pulse Oximetry (%) 97 06/22/18 08:37 Constitutional: Yes: Well Nourished, Calm Eyes: Yes: WNL HENT: Yes: WNL Neck: Yes: WNL Cardiovascular: Yes: Regular Rate and Rhythm, S1, S2 Respiratory: Yes: CTA Bilaterally Gastrointestinal: Yes: Normal Bowel Sounds, Soft Extremities: Yes: WNL Edema: Yes Labs: CBC, BMP 06/22/18 06:00 06/22/18 06:00 INR, PTT INR 1.08 (0.83-1.09) 06/19/18 06:05 Problem List - Problems (1) Chest pain Code(s): R07.9 - CHEST PAIN, UNSPECIFIED (2) ARF (acute renal failure) Code(s): N17.9 - ACUTE KIDNEY FAILURE, UNSPECIFIED Qualifiers: Acute renal failure type: unspecified Qualified Code(s): N17.9 - Acute kidney failure, unspecified (3) CVA (cerebral vascular accident) Code(s): I63.9 - CEREBRAL INFARCTION, UNSPECIFIED (4) Chronic kidney disease Code(s): N18.9 - CHRONIC KIDNEY DISEASE, UNSPECIFIED Qualifiers: Chronic kidney disease stage: stage 4 (severe) Qualified Code(s): N18.4 - Chronic kidney disease, stage 4 (severe) (5) HLD (hyperlipidemia) Code(s): E78.5 - HYPERLIPIDEMIA, UNSPECIFIED (6) Obesity Code(s): E66.9 - OBESITY, UNSPECIFIED Qualifiers: Obesity type: due to excess calories Obesity classification: unspecified obesity classification Serious obesity comorbidity presence: unspecified whether serious comorbidity present Qualified Code(s): E66.09 - Other obesity due to excess calories (7) Acute on chronic kidney failure Code(s): N17.9 - ACUTE KIDNEY FAILURE, UNSPECIFIED; N18.9 - CHRONIC KIDNEY DISEASE, UNSPECIFIED (8) Bladder cancer Code(s): C67.9 - MALIGNANT NEOPLASM OF BLADDER, UNSPECIFIED Assessment/Plan A/P Pleuritic Chest Pain improving r/o PE Acute on Chronic Renal Failure Metabolic Acidosis h/o Bladder Ca HTN DM Hyperlipidemia OSAS - continue anticoagulation - V/Q scan pending - monitor urine output, creatinine - bicarb - O2 to keep SPo2 >90% - sleep screen DR RODNEY
[2018-06-22 12:39] VITALS: BMI 45.2
[2018-06-22 14:27] VITALS: BP 151/79; PULSE 86
--- NOTE | 2018-06-22 16:04 | DS ---
Physical Examination Vital Signs: Vital Signs Temperature 97.8 F 06/22/18 14:26 Pulse Rate 86 06/22/18 14:26 Respiratory Rate 18 06/22/18 14:26 Blood Pressure 151/79 06/22/18 14:26 O2 Sat by Pulse Oximetry (%) 97 06/22/18 08:37 Constitutional: Yes: Well Nourished, No Distress, Calm Cardiovascular: Yes: WNL, Regular Rate and Rhythm. No: Murmur Respiratory: Yes: WNL, Regular, CTA Bilaterally. No: Accessory Muscle Use, SOB , Tachypnea, Wheezes Gastrointestinal: Yes: WNL, Normal Bowel Sounds, Soft. No: Distention, Tenderness Renal/: Yes: Other (urostomy in place) Edema: Yes Edema: LLE: 1+, RLE: 1+ Neurological: Yes: WNL, Alert, Oriented Psychiatric: Yes: WNL, Alert, Oriented Labs: CBC, BMP 06/22/18 06:00 06/22/18 06:00 Discharge Summary Reason For Visit: ACUTE RENAL FAILURE; CHEST PAIN Current Active Problems Acute on chronic kidney failure (Acute) Chest pain (Acute) Hospital Course: 67 year old male admitted for evaluation of chest pain, kiet, and metabolic acidosis. PE/ACS/pericarditis ruled out, vq scan/echo negative for acute findings. Kiet and metabolic acidosis improved. Pt started on po na bicarb, nephrology consult appreciated. BP noted to be trending higher 150s/160s, hydralazine increased to 100mg bid. Otherwise, pt in no acute distress, vitals stable, labs unremarkable. Pt is medically stable for discharge. 32 minutes spent in discharge planning Condition: Good - Instructions Referrals: Freddie Forbes MD [Staff Physician] - 2 Weeks Umang Howard MD [Staff Physician] - 1 Week Mukund Snider MD [Staff Physician] - 2 Weeks Disposition: HOME - Home Medications Comprehensive Discharge Medication List: Ambulatory Orders Atorvastatin Ca [Lipitor] 10 mg PO DAILY 06/07/17 Cholecalciferol (Vitamin D3) [Vitamin D3] 1,000 unit PO DAILY 06/07/17 Cyanocobalamin [Vitamin B12 -] 1,000 mcg PO DAILY 06/07/17 Doxazosin Mesylate [Cardura -] 4 mg PO DAILY 06/07/17 Furosemide [Lasix -] 40 mg PO DAILY 06/07/17 Multivitamin [One Daily] 1 each PO DAILY 06/07/17 Insulin Detemir [Levemir Flextouch] 60 unit SQ HS 11/05/17 Insulin Regular, Human [Humulin R U-500 Kwikpen] 0 unit SQ ACBK 11/05/17 Aspirin 81 mg PO DAILY 06/18/18 Gabapentin 300 mg PO DAILY 06/18/18 Hydralazine HCl 100 mg PO BID #60 tablet 06/22/18 Sodium Bicarbonate - 1,300 mg PO TID #90 tablet 06/22/18
== END 2018-06-22 18:01 | disposition home or self-care (01) | DRG 683 ==
LOC: JER 13:27 → JERBED 17:33 → J4S 20:45
PROVIDERS: ADMIT Internal Medicine; ATTEND Internal Medicine
DX: N17.9 Acute kidney failure, unspecified (principal); I13.0 Hypertensive heart and chronic kidney disease with heart failure and stage 1 through stage 4 chronic kidney disease, or unspecified chronic kidney disease; Z68.42 Body mass index [BMI] 45.0-49.9, adult; E87.2 Acidosis; N18.4 Chronic kidney disease, stage 4 (severe); R07.9 Chest pain, unspecified; E11.22 Type 2 diabetes mellitus with diabetic chronic kidney disease; I50.9 Heart failure, unspecified; Z86.73 Personal history of transient ischemic attack (TIA), and cerebral infarction without residual deficits; J44.9 Chronic obstructive pulmonary disease, unspecified; Z85.51 Personal history of malignant neoplasm of bladder; Z79.4 Long term (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 of insulin; E78.5 Hyperlipidemia, unspecified; Z87.891 Personal history of nicotine dependence; E66.9 Obesity, unspecified; G47.33 Obstructive sleep apnea (adult) (pediatric)
CPT/HCPCS: 36415; 36600; 71045-TC-FY; 71046-TC-FY; 76775-TC; 78582-TC; 80048; 80053; 82272; 82550; 82553; 82803; 82962; 83036; 83735; 83880; 84100; 84484; 85025; 85027; 85610; 85651; 85730; 86850; 86900; 86901; 93005; 93010; 93306-TC; 93970-TC; 99282-25; A9539; A9540; J1644; J7030

== ENCOUNTER 2018-11-03 07:50 | Emergency (ER) | payer OTHER ==
[2018-11-03 08:04] VITALS: BMI 44.6
--- NOTE | 2018-11-03 08:12 | PDOC ---
History of Present Illness - General Chief Complaint: Respiratory Stated Complaint: COUGH Time Seen by Provider: 11/03/18 08:00 History Source: Patient, Old Records Exam Limitations: No Limitations - History of Present Illness Initial Comments: 11/03/18 08:17 CHIEF COMPLAINT: Cough HISTORY OF PRESENT ILLNESS: This is a 67-year-old male with HTN, IDDM, CHF, TIA , COPD (no home O2, recently started on Symbicort/Combivent inhalers), bladder CA (s/p total cystectomy w/ urostomy 2014), and CKD 4 who presents to the ED complaining of one month of cough productive of copious sputum (patient is unsure of the color). He saw his PCP who prescribed a course of ceftin and prednisone, which he completed without improvement in symptoms. He sometimes feels short of breath. He denies associated chest pain, orthopnea, and fevers/ chills. He notes that his legs are more swollen than usual, that he has gained weight, and that his left leg is painful. Vital signs on arrival are notable for P 98 and RR 24. PCP is Dr. Howard. Smoking: Quit >20 yrs ago REVIEW OF SYSTEMS: GENERAL/CONSTITUTIONAL: No fever or chills. No night sweats or weight loss. HEAD, EYES, EARS, NOSE AND THROAT: No change in vision. No ear pain or discharge. No sore throat. CARDIOVASCULAR: No chest pain, shortness of breath in the context of coughing. Dyspnea on exertion, chronic and unchanged. RESPIRATORY: Productive cough x 1 month. No wheezing or hemoptysis. GASTROINTESTINAL: No abdominal pain, nausea, vomiting, diarrhea, or constipation. GENITOURINARY: No dysuria, frequency, or change in urination. MUSCULOSKELETAL: No joint or muscle swelling or pain. No neck or back pain. SKIN: No rash or easy bruising. NEUROLOGIC: No headache, vertigo, loss of consciousness, or change in strength/ sensation. ENDOCRINE: No increased thirst or urination. HEMATOLOGIC/LYMPHATIC: No anemia, easy bleeding, or history of blood clots. ALLERGIC/IMMUNOLOGIC: No hives or skin allergy. PHYSICAL EXAM: GENERAL: Awake, alert, and fully oriented, appears anxious. HEAD: No signs of trauma, normocephalic, atraumatic. EYES: PERRLA, EOMI, sclera anicteric, conjunctiva clear. ENT: Auricles normal inspection, hearing grossly normal, nares patent, oropharynx clear without exudates. Moist mucosa. NECK: Normal ROM, supple, no lymphadenopathy, JVD, or masses. LUNGS: Tachypneic, but speaks full sentences, breath sounds diminished at bases , no adventitious sounds. HEART: Regular rate and rhythm, normal S1 and S2, no murmurs, rubs or gallops, peripheral pulses normal and equal bilaterally. ABDOMEN: Abdomen soft, non-tender, protuberant. EXTREMITIES : 3+ pitting edema bilaterally to level of hips, left calf tenderness. NEUROLOGICAL: Cranial nerves II through XII grossly intact. Normal speech, normal gait with cane, no focal sensorimotor deficits. SKIN: Warm, Dry, normal turgor, no rashes or lesions noted. 11/03/18 12:16 Past History - Past Medical History Allergies/Adverse Reactions: Allergies Allergy/AdvReac Type Severity Reaction Status Date / Time shrimp Allergy Intermediate Vomiting Verified 11/03/18 08:00 Home Medications: Ambulatory Orders Atorvastatin Ca [Lipitor] 10 mg PO DAILY 06/07/17 Cholecalciferol (Vitamin D3) [Vitamin D3] 1,000 unit PO DAILY 06/07/17 Cyanocobalamin [Vitamin B12 -] 1,000 mcg PO DAILY 06/07/17 Doxazosin Mesylate [Cardura -] 4 mg PO DAILY 06/07/17 Furosemide [Lasix -] 40 mg PO DAILY 06/07/17 Multivitamin [One Daily] 1 each PO DAILY 06/07/17 Insulin Detemir [Levemir Flextouch] 60 unit SQ HS 11/05/17 Aspirin 81 mg PO DAILY 06/18/18 Gabapentin 300 mg PO DAILY 06/18/18 Sodium Bicarbonate - 1,300 mg PO TID #90 tablet 06/22/18 Budesonide/Formeterol Fumarate [SYMBICORT 160/4.5mcg -] 1 inh PO BID 11/03/18 Ipratropium/Albuterol Sulfate [Combivent Respimat Inhal [place]] 4 gm IH BID 11/03 Anemia: No Asthma: No Cancer: Yes (BLADDER CA W/REMOVAL AND UROSTOMY) Cardiac Disorders: No (DR. DASH AT [facility]) CVA: Yes (TIA 2013) COPD: Yes CHF: No Dementia: No Diabetes: Yes Dialysis: No GI Disorders: No Disorders: Yes HTN: Yes Hypercholesterolemia: Yes Liver Disease: No Seizures: No Thyroid Disease: No - Surgical History Abdominal Surgery: Yes (BLADDER REMOVED 05/2014 -UROSTOMY) Appendectomy: No Cardiac Surgery: No Cholecystectomy: No Lung Surgery: No Neurologic Surgery: No Orthopedic Surgery: Yes (left knee sx) - Immunization History Immunization Up to Date: Yes (FLU AND PNA UP TO DATE) - Suicide/Smoking/Psychosocial Hx Smoking Status: No Smoking History: Former smoker Have you smoked in the past 12 months: No If you are a former smoker, when did you quit?: "years ago" Information on smoking cessation initiated: No Hx Alcohol Use: No Drug/Substance Use Hx: No Substance Use Type: None Hx Substance Use Treatment: No *Physical Exam - Vital Signs Last Vital Signs Temp Pulse Resp BP Pulse Ox 98.3 F 98 H 18 126/78 98 11/03/18 07:52 11/03/18 07:52 11/03/18 07:52 11/03/18 07:52 11/03/18 07:52 ED Treatment Course - LABORATORY CBC & Chemistry Diagram: 11/03/18 12:51 11/03/18 09:00 Medical Decision Making - Medical Decision Making 11/03/18 08:46 A/P: 67-year-old male with one month of productive cough not improved following Ceftin/prednisone, also with weight gain and worsening LE edema. Differential includes COPD exacerbation, CHF exacerbation, bronchitis, less likely PE. 1. EKG: NSR at 83bpm with left anterior fascicular block, LVH 2. Cardiac labs 3. Doppler LLE 4. Lasix 40mg IVP (on 40mg PO daily at home) 5. Re-assess UA results noted- suspect chronic colonization given priors. 11/03/18 09:34 CXR: Clear lungs. BUN/Cr at baseline, trop neg, BNP WNL. 11/03/18 11:15 U/s neg for DVT 11/03/18 13:32 Patient is feeling well, able to ambulate without being limited by dyspnea. Vital signs repeated and unremarkable. Will rx azithro to cover for atypical organisms that may be causing bronchitis/ PNA and treat cough with Tessalon Perles. Patient agrees to discuss increasing Lasix dose with PCP, who is currently out of office and not reachable per office staff. *DC/Admit/Observation/Transfer Diagnosis at time of Disposition: Cough - Discharge Dispostion Disposition: HOME Condition at time of disposition: Improved Decision to Admit order: No - Referrals Referrals: Umang Howard MD [Primary Care Provider] - Call tomorrow - Patient Instructions Additional Instructions: -Take Azithromycin (antibiotic) as prescribed -Take Tessalon perles as prescribed for cough -Discuss the possibility of increasing your Lasix dose with Dr. Howard -Return here for shortness of breath different from your usual symptoms, chest pain, or any other concerning symptoms - Post Discharge Activity
--- NOTE | 2018-11-03 08:24 | PDOC ---
*Physical Exam - Vital Signs Last Vital Signs Temp Pulse Resp BP Pulse Ox 98.3 F 98 H 18 126/78 98 11/03/18 07:52 11/03/18 07:52 11/03/18 07:52 11/03/18 07:52 11/03/18 07:52 - Physical Exam Comments: 11/03/18 08:23 The patient was examined by [SOLE CONFORMING MACHINE OPERATOR Rubia] under my direct supervision. I personally evaluated the patient. I concur with the above findings and the plan of care. 11/03/18 12:37 Patient 67-year-old male with history of COPD, bladder CA in the past presents with one-month history of intermittently productive cough and worsening lower extremity edema. Patient is completely a course of Ceftin and prednisone prescribed by PMD with limited improvement. In the ER, patient is awake and alert, hemodynamically stable, with oxygen saturation of 99% on room air, chest x-ray reveals mild cardiomegaly but no evidence of infiltrate or effusion. Left lower extremity Doppler ultrasound shows no evidence of DVT. Pitting edema is likely related to mild CHF exacerbation. Patient's previous echocardiogram revealed evidence of diastolic dysfunction. We'll administer IV Lasix. There is no indication for admission. I do not suspect ACS or PE at this time. Patient's dyspnea on exertion is chronic and he repeatedly states that it has not worsened. Will discharge with outpatient follow-up. ED Treatment Course - LABORATORY CBC & Chemistry Diagram: 11/03/18 09:00 11/03/18 09:00 *DC/Admit/Observation/Transfer - Referrals Referrals: Umang Howard MD [Primary Care Provider] - - Patient Instructions - Post Discharge Activity
[2018-11-03 09:05] LABS: EPI CELLS 1.4 /HPF (0-5/HPF); PH,URINE 7.5 (5.0-8.0); URINE APPEARANCE CLOUDY; URINE BACTERIA 3068.1 /hpf (NEGATIVE); URINE BILIRUBIN NEGATIVE (NEGATIVE); URINE CASTS 14 /lpf (0-8); URINE COLOR YELLOW; URINE GLUCOSE (UA) NEGATIVE (NEGATIVE); URINE KETONE NEGATIVE (NEGATIVE); URINE LEUK ESTERASE 3+ (NEGATIVE); URINE NITRITE POSITIVE (NEGATIVE); URINE PROTEIN TRACE (NEGATIVE); URINE RBC 16 /hpf (0-4); URINE UROBILINOGEN 0.2 mg/dL (0.2-1.0); URINE WBC 38 /hpf (0-5)
[2018-11-03 09:33] LABS: INR 0.98 (0.83-1.09); PROTHROMBIN TIME (PATIENT) 11.6 SEC (9.7-13.0)
[2018-11-03] MEDS ORDERED: FUROSEMIDE 40 MG/4 ML INJECTABLE VIAL IVPUSH ONE (09:34)
[2018-11-03 09:47] LABS: ALBUMIN 3.5 g/dl (3.4-5.0); ALK PHOS 80 U/L (45-117); ANION GAP 5 MMOL/L (8-16); BILIRUBIN,TOTAL 0.4 mg/dL (0.2-1); BLOOD UREA NITROGEN 59 mg/dL (7-18); CALCIUM 9.1 mg/dL (8.5-10.1); CHLORIDE 112 mmol/L (98-107); CO2 19 mmol/L (21-32); CREATININE 2.7 mg/dL (0.55-1.3); GLUCOSE,RANDOM 190 mg/dL (74-106); N-TERMINAL BNP 58.9 pg/ml (5-125); POTASSIUM 5.1 mmol/L (3.5-5.1); SGOT/AST 33 U/L (15-37); SGPT/ALT 37 U/L (13-61); SODIUM 136 mmol/L (136-145); TOT PROT 7.7 g/dl (6.4-8.2)
[2018-11-03 10:12] LABS: URINE CRYSTALS NONE SEEN /hpf
[2018-11-03] MEDS ORDERED: FUROSEMIDE 40 MG/4 ML INJECTABLE VIAL ONE (10:30)
[2018-11-03 11:36] VITALS: BP 142/83; PULSE 78; TEMP 98
--- NOTE | 2018-11-03 12:26 | EKG ---
Test Reason : Blood Pressure : / mmHG Vent. Rate : 083 BPM Atrial Rate : 083 BPM P-R Int : 192 ms QRS Dur : 112 ms QT Int : 366 ms P-R-T Axes : 028 -53 031 degrees QTc Int : 430 ms NORMAL SINUS RHYTHM POSSIBLE LEFT ATRIAL ENLARGEMENT LEFT ANTERIOR FASCICULAR BLOCK LEFT VENTRICULAR HYPERTROPHY NONSPECIFIC T WAVE ABNORMALITY ABNORMAL ECG WHEN COMPARED WITH ECG OF 18-JUN-2018 13:37, T WAVE AMPLITUDE HAS DECREASED IN INFERIOR LEADS Confirmed by KERRY MANSFIELD MD ([id number]) on 11/03/2018 12:26:20 PM Referred By: Confirmed By:KERRY MANSFIELD MD
[2018-11-03 13:12] LABS: BASO % 0.5 % (0-2.0); EOS % 4.1 % (0-4.5); HEMATOCRIT 39.1 % (35.4-49); HEMOGLOBIN 13.2 GM/dL (11.7-16.9); LYMPH % 10.5 % (8-40); MCH 27.8 pg (25.7-33.7); MCHC 33.8 g/dl (32.0-35.9); MEAN CELL VOLUME 82.3 fl (80-96); MEAN PLT VOLUME 8.3 fl (7.5-11.1); MONO % 7.9 % (3.8-10.2); PLATELET COUNT 238 K/MM3 (134-434); RBC 4.75 M/mm3 (4.00-5.60); RDW 15.7 % (11.9-15.9); WHITE BLOOD COUNT 9.3 K/mm3 (4.0-10.0)
== END 2018-11-03 13:46 | disposition home or self-care (01) ==
LOC: JER 07:50
PROC: 3E033GC Introduction of Other Therapeutic Substance into Peripheral Vein, Percutaneous Approach (ICD-10-PCS; principal; 2018-11-03)
DX: R05 Cough (principal); J44.9 Chronic obstructive pulmonary disease, unspecified; E11.9 Type 2 diabetes mellitus without complications; I10 Essential (primary) hypertension; E78.00 Pure hypercholesterolemia, unspecified; Z86.73 Personal history of transient ischemic attack (TIA), and cerebral infarction without residual deficits
CPT/HCPCS: 36415; 71046-TC-FY; 80053; 81003; 82550; 82553; 83880; 84484; 85025; 85610; 93005; 93010; 93971-TC; 96374; 99284-25

== ENCOUNTER 2019-04-07 20:53 | Inpatient (IN) | payer OTHER ==
[2019-04-07 21:12] VITALS: BMI 43.8
--- NOTE | 2019-04-07 21:13 | PDOC ---
Rapid Medical Evaluation Time Seen by Provider: 04/07/19 21:07 Medical Evaluation: Allergies Allergy/AdvReac Type Severity Reaction Status Date / Time shrimp Allergy Intermediate Vomiting Verified 11/03/18 08:00 04/07/19 21:07 Pt presents to the ER for R flank pain for two days. He states the pain has been increasing and hit hurts to move. He notes he has a ileal conduit urinary diversion procedure. Exam: (+) R CVAT Orders: Lab, urine Pt to proceed to the ER for further evaluation Discharge Disposition - Diagnosis Flank pain - Referrals Referrals: Umang Howard MD [Primary Care Provider] - - Patient Instructions - Post Discharge Activity
[2019-04-07 21:50] LABS: BASO % 0.7 % (0-2.0); EOS % 3.3 % (0-4.5); HEMATOCRIT 37.6 % (35.4-49); HEMOGLOBIN 12.8 GM/dL (11.7-16.9); LYMPH % 12.4 % (8-40); MEAN CELL VOLUME 82.1 fl (80-96); MEAN PLT VOLUME 8.2 fl (7.5-11.1); MONO % 8.3 % (3.8-10.2); NEUT % 75.3 % (42.8-82.8); PLATELET COUNT 225 K/MM3 (134-434); RBC 4.57 M/mm3 (4.00-5.60); RDW 15.9 % (11.9-15.9); WHITE BLOOD COUNT 8.7 K/mm3 (4.0-10.0)
[2019-04-07 21:54] LABS: EPI CELLS 2.4 /HPF (0-5/HPF); HYALINE CASTS 85 /lpf (0-8); PH,URINE 7.5 (5.0-8.0); URINE APPEARANCE CLOUDY; URINE BACTERIA 2737.2 /hpf (NEGATIVE); URINE BILIRUBIN NEGATIVE (NEGATIVE); URINE COLOR YELLOW; URINE GLUCOSE (UA) NEGATIVE (NEGATIVE); URINE KETONE NEGATIVE (NEGATIVE); URINE LEUK ESTERASE 3+ (NEGATIVE); URINE NITRITE NEGATIVE (NEGATIVE); URINE PROTEIN 2+ (NEGATIVE); URINE RBC 8 /hpf (0-4); URINE UROBILINOGEN 0.2 mg/dL (0.2-1.0); URINE WBC 66 /hpf (0-5)
[2019-04-07 22:19] LABS: INR 1.02 (0.83-1.09)
[2019-04-07 22:22] LABS: ALBUMIN 3.6 g/dl (3.4-5.0); BILIRUBIN,TOTAL 0.3 mg/dL (0.2-1); BLOOD UREA NITROGEN 57.2 mg/dL (7-18); CALCIUM 9.1 mg/dL (8.5-10.1); CREATININE 3.1 mg/dL (0.55-1.3); POTASSIUM 4.5 mmol/L (3.5-5.1); TOT PROT 7.1 g/dl (6.4-8.2)
--- NOTE | 2019-04-07 22:33 | PDOC ---
History of Present Illness - History of Present Illness Initial Comments: 04/07/19 22:30 CHIEF COMPLAINT: R flank pain HISTORY OF PRESENT ILLNESS: 68 yo M with x of HTN, IDDM (on Levemir and Novolog) , CHF, TIA, COPD, bladder CA (s/p total cystectomy w/ urostomy 2014), and CKD 4 who presents to the ED with R flank pain x 2 days. He reports 10/10 pain and that the pain is worsened with movement and that he can "barely stand up." Patient denies any fever, chills, nausea, vomiting, or diarrhea. Patient is followed by chemical process engineer MD Mariangel Forman. No recent travel or sick contacts. PAST MEDICAL HISTORY: HTN, IDDM, CHF, TIA, COPD, bladder CA, CKD FAMILY HISTORY: Denies SOCIAL HISTORY: Denies tobacco, alcohol, illicit drug use. SURGICAL HISTORY: Denies ALLERGIES: shrimp REVIEW OF SYSTEMS General/Constitutional: Denies fever or chills. Denies weakness, weight change. HEENT: Denies change in vision. Denies ear pain or discharge. Denies sore throat. Cardiovascular: Denies chest pain or shortness of breath. Respiratory: Denies cough, wheezing, or hemoptysis. Gastrointestinal: Denies nausea, vomiting, diarrhea or constipation. Denies rectal bleeding. Genitourinary: Denies dysuria, frequency, or change in urination. Musculoskeletal: R flank pain. Denies joint or muscle swelling or pain. Denies neck or back pain. Skin and breasts: Denies rash or easy bruising. Neurologic: Denies headache, vertigo, loss of consciousness, or loss of sensation. Psychiatric: Denies depression or anxiety. PHYSICAL EXAM General Appearance: Morbidly obese. No apparent distress, no intoxication. HEENT: EOMI, PERRLA, normal ENT inspection, normal voice, TMs normal, pharynx normal. No conjunctival pallor. No photophobia, scleral icterus. Neck: Supple. Trachea midline. No tenderness, rigidity, carotid bruit, stridor , lymphadenopathy, or thyromegaly. Respiratory/Chest: Lungs CTAB. No shortness of breath, chest tenderness, respiratory distress, accessory muscle use. No crackles, rales, rhonchi, stridor , wheezing, dullness Cardiovascular: RRR. S1, S2. No JVD, murmur, bradycardia, tachycardia. Vascular Pulses: Dorsalis-Pedis (R): 2+, Dorsalis-Pedis (L): 2+ Gastrointestinal/Abdominal: Normal bowel sounds. Abdomen soft, non-distended. No tenderness or rebound tenderness. No organomegaly, pulsatile mass, guarding , hernia, hepatomegaly, splenomegaly. Lymphatic: No adenopathy, tenderness. Musculoskeletal/Extremities: Marked R CVAT. Normal inspection. FROM of all extremities, normal capillary refill. Pelvis Stable. No tenderness to extremities, pedal edema, swelling, erythema or deformity. Integumentary: Appropriate color, dry, warm. No cyanosis, erythema, jaundice or rash Neurologic: labor delivery specialist II-XII intact. Fully oriented, alert. Appropriate mood/affect. Motor strength 5/5. No appreciable EOM palsy, facial droop or sensory deficit. <Karen Gonzalez - Last Filed: 04/08/19 02:04> <Leonardo Govea - Last Filed: 04/08/19 04:23> - General Chief Complaint: Pain, Acute Stated Complaint: RIGHT SIDE PAIN Time Seen by Provider: 04/07/19 21:07 Past History - Past Medical History Anemia: No Asthma: No Cancer: Yes (BLADDER CA W/REMOVAL AND UROSTOMY) Cardiac Disorders: No (DR. DASH AT [facility]) CVA: Yes (2013) COPD: Yes CHF: No Dementia: No Diabetes: Yes Dialysis: No GI Disorders: No Disorders: Yes HTN: Yes Hypercholesterolemia: Yes Liver Disease: No Seizures: No Thyroid Disease: No - Surgical History Abdominal Surgery: Yes (BLADDER REMOVED 05/2014 -UROSTOMY) Appendectomy: No Cardiac Surgery: No Cholecystectomy: No Lung Surgery: No Neurologic Surgery: No Orthopedic Surgery: Yes (left knee sx) - Immunization History Immunization Up to Date: Yes (FLU AND PNA UP TO DATE) - Suicide/Smoking/Psychosocial Hx Smoking Status: No Smoking History: Never smoked Have you smoked in the past 12 months: No If you are a former smoker, when did you quit?: "years ago" Hx Alcohol Use: No Drug/Substance Use Hx: No Substance Use Type: None Hx Substance Use Treatment: No <Karen Gonzalez - Last Filed: 04/08/19 02:04> <Leonardo Govea - Last Filed: 04/08/19 04:23> - Past Medical History Allergies/Adverse Reactions: Allergies Allergy/AdvReac Type Severity Reaction Status Date / Time shrimp Allergy Intermediate Vomiting Verified 04/07/19 21:08 Home Medications: Ambulatory Orders Atorvastatin Ca [Lipitor] 10 mg PO DAILY 06/07/17 Cholecalciferol (Vitamin D3) [Vitamin D3] 1,000 unit PO DAILY 06/07/17 Cyanocobalamin [Vitamin B12 -] 1,000 mcg PO DAILY 06/07/17 Doxazosin Mesylate [Cardura -] 4 mg PO DAILY 06/07/17 Furosemide [Lasix -] 40 mg PO DAILY 06/07/17 Multivitamin [One Daily] 1 each PO DAILY 06/07/17 Insulin Detemir [Levemir Flextouch] 60 unit SQ HS 11/05/17 Aspirin 81 mg PO DAILY 06/18/18 Gabapentin 300 mg PO DAILY 06/18/18 Sodium Bicarbonate - 1,300 mg PO TID #90 tablet 06/22/18 Azithromycin [Zithromax 250mg Tablets -] 250 mg PO UTDICT #6 tab 11/03/18 Benzonatate [Tessalon Pearls -] 100 mg PO TID PRN #21 capsule 11/03/18 Budesonide/Formeterol Fumarate [SYMBICORT 160/4.5mcg -] 1 inh PO BID 11/03/18 Ipratropium/Albuterol Sulfate [Combivent Respimat Inhal Olivia] 4 gm IH BID 11/03 Ampicillin Trihydrate 500 mg PO QID #28 capsule 04/08/19 *Physical Exam - Vital Signs Last Vital Signs Temp Pulse Resp BP Pulse Ox 99.1 F 78 20 157/82 97 04/07/19 21:08 04/07/19 21:08 04/07/19 21:08 04/07/19 21:08 04/07/19 21:08 <Karen Gonzalez - Last Filed: 04/08/19 02:04> - Vital Signs Last Vital Signs Temp Pulse Resp BP Pulse Ox 98 F 76 16 137/66 98 04/08/19 02:50 04/08/19 02:50 04/08/19 02:50 04/08/19 02:50 04/08/19 02:50 <Leonardo Govea - Last Filed: 04/08/19 04:23> ED Treatment Course - LABORATORY CBC & Chemistry Diagram: 04/07/19 21:28 04/07/19 21:28 - ADDITIONAL ORDERS Additional order review: Laboratory Results 04/07/19 04/07/19 04/07/19 21:28 21:28 21:28 PT with INR 12.00 INR 1.02 Sodium 135 L Potassium 4.5 Chloride 108 H Carbon Dioxide 18 L Anion Gap 9 BUN 57.2 H Creatinine 3.1 H Est GFR (CKD-EPI)AfAm 22.41 Est GFR (CKD-EPI)NonAf 19.33 Random Glucose 378 H Calcium 9.1 Total Bilirubin 0.3 AST 16 ALT 33 Alkaline Phosphatase 90 Total Protein 7.1 Albumin 3.6 Urine Color Yellow Urine Appearance Cloudy Urine pH 7.5 Ur Specific [place] 1.013 Urine Protein 2+ H Urine Glucose (UA) Negative Urine Ketones Negative Urine Blood 1+ H Urine Nitrite Negative Urine Bilirubin Negative Urine Urobilinogen 0.2 Ur Leukocyte Esterase 3+ H Urine WBC (Auto) 66 Urine RBC (Auto) 8 Urine Casts (Auto) 85 U Epithel Cells (Auto) 2.4 Urine Bacteria (Auto) 2737.2 04/07/19 21:28 RBC 4.57 MCV 82.1 MCHC 34.0 RDW 15.9 MPV 8.2 Neutrophils % 75.3 Lymphocytes % 12.4 Monocytes % 8.3 Eosinophils % 3.3 Basophils % 0.7 D <Karen Gonzalez - Last Filed: 04/08/19 02:04> - LABORATORY CBC & Chemistry Diagram: 04/07/19 21:28 04/07/19 21:28 - ADDITIONAL ORDERS Additional order review: Laboratory Results 04/07/19 04/07/19 04/07/19 21:28 21:28 21:28 PT with INR 12.00 INR 1.02 Sodium 135 L Potassium 4.5 Chloride 108 H Carbon Dioxide 18 L Anion Gap 9 BUN 57.2 H Creatinine 3.1 H Est GFR (CKD-EPI)AfAm 22.41 Est GFR (CKD-EPI)NonAf 19.33 Random Glucose 378 H Calcium 9.1 Total Bilirubin 0.3 AST 16 ALT 33 Alkaline Phosphatase 90 Total Protein 7.1 Albumin 3.6 Urine Color Yellow Urine Appearance Cloudy Urine pH 7.5 Ur Specific [place] 1.013 Urine Protein 2+ H Urine Glucose (UA) Negative Urine Ketones Negative Urine Blood 1+ H Urine Nitrite Negative Urine Bilirubin Negative Urine Urobilinogen 0.2 Ur Leukocyte Esterase 3+ H Urine WBC (Auto) 66 Urine RBC (Auto) 8 Urine Casts (Auto) 85 U Pathogenic Cast Auto None seen U Epithel Cells (Auto) 2.4 Urine Crystals (Auto) Amorphous phosphates Urine Bacteria (Auto) 2737.2 04/07/19 21:28 RBC 4.57 MCV 82.1 MCHC 34.0 RDW 15.9 MPV 8.2 Neutrophils % 75.3 Lymphocytes % 12.4 Monocytes % 8.3 Eosinophils % 3.3 Basophils % 0.7 D - Medications Given in the ED: ED Medications Discontinued Medications Generic Name Dose Route Start Last Admin Trade Name Freq PRN Reason Stop Dose Admin Acetaminophen 1,000 mg 04/08/19 00:31 04/08/19 01:25 Ofirmev Injection - IVPB 04/08/19 00:32 1,000 mg ONCE ONE Administration Insulin Aspart 5 units 04/07/19 22:39 04/07/19 23:05 Novolog Vial SQ 04/07/19 22:40 5 units ONCE ONE Administration Protocol Morphine Sulfate 4 mg 04/08/19 02:06 04/08/19 02:22 Morphine Injection - IVPUSH 04/08/19 02:07 4 mg ONCE ONE Administration <Leonardo Govea - Last Filed: 04/08/19 04:23> Medical Decision Making - Medical Decision Making 04/07/19 22:33 68 yo M with x of HTN, IDDM (on Levemir and Novolog), CHF, TIA, COPD, bladder CA (s/p total cystectomy w/ urostomy 2014), and CKD 4 who presents to the ED with R flank pain x 2 days. -labs, urine -tylenol for pain control 04/08/19 02:04 Laboratory Tests 04/07/19 04/07/19 21:28 21:28 Sodium 135 L Chloride 108 H Carbon Dioxide 18 L BUN 57.2 H Creatinine 3.1 H Random Glucose 378 H Urine Protein 2+ H Urine Blood 1+ H Ur Leukocyte Esterase 3+ H Urine WBC (Auto) 66 Urine RBC (Auto) 8 Urine Casts (Auto) 85 Pt glucose 378, insulin given. CTAP, eval for pyelo/stone. CT without evidence of pyelo or obstructing stone. Patient continues to c/o of significant pain. Morphine 4 mg given, will reassess. Sign out given to Dr. Govea. <Karen Gonzalez - Last Filed: 04/08/19 02:04> *DC/Admit/Observation/Transfer <Karen Gonzalez - Last Filed: 04/08/19 02:04> - Discharge Dispostion Decision to Admit order: Yes <Leonardo Govea - Last Filed: 04/08/19 04:23> Diagnosis at time of Disposition: Urinary tract infection Qualifiers: Urinary tract infection type: site unspecified Hematuria presence: without hematuria Qualified Code(s): N39.0 - Urinary tract infection, site not specified - Discharge Dispostion Condition at time of disposition: Stable - Prescriptions Prescriptions: Ampicillin Trihydrate 500 mg PO QID #28 capsule - Referrals Referrals: Umang Howard MD [Primary Care Provider] - - Patient Instructions Printed Discharge Instructions: DI for Urinary Tract Infection (UTI) Additional Instructions: Please take medications as prescribed. Follow up with Dr. Howard within the next 3 days for continued monitoring of your symptoms. If you develop any fever, chills, nausea, vomiting, diarrhea, or any new or worsening symptoms, please return to the ER. - Post Discharge Activity
[2019-04-07] MEDS ORDERED: INSULIN (NOVOLOG) ASPART 100 UNITS/ML 10ML VIAL SQ ONE (22:39)
[2019-04-07 23:02] LABS: URINE CRYSTALS AMORPHOUS PHOSPHATES /hpf
[2019-04-08] MEDS ORDERED: ACETAMINOPHEN 1000 MG/100 ML VIAL (NON FORMULARY) IVPB ONE (00:31)
[2019-04-08] MEDS ORDERED: ACETAMINOPHEN INJECTION 100 ML IVPB ONE (00:52)
[2019-04-08] MEDS ORDERED: morphine CARPU-JECT 4 MG/1 ML DISP.SYRIN IVPUSH ONE (02:06)
[2019-04-08] MEDS ORDERED: morphine SULFATE 4 MG/ML VIAL ONE (02:15)
[2019-04-08] MEDS ORDERED: PIPERACILLIN/TAZOB 3.375 GM 3.375 GM in DEXTROSE 5%-WATER - 50 ML IVPB ONE (04:21)
[2019-04-08] MEDS ORDERED: PIPERACILLIN/TAZOB 3.375 GM 3.375 GM/50 ML BAG IVPB ONE (04:42)
[2019-04-08] MEDS ORDERED: MORPHINE SULFATE 2 MG/ML VIAL IVPUSH PRN (04:59)
[2019-04-08] MEDS ORDERED: ACETAMINOPHEN 325 MG TABLET (FP) PO PRN (04:59)
[2019-04-08] MEDS ORDERED: CYCLOBENZAPRINE HCL 5 MG TABLET PO PRN (05:00)
[2019-04-08] MEDS ORDERED: METHOCARBAMOL 500 MG TABLET PO ONE (05:06)
--- NOTE | 2019-04-08 05:14 | PN ---
Teaching Attending Note Name of Resident: Luis Eduardo Richmond ATTENDING PHYSICIAN STATEMENT I saw and evaluated the patient. I reviewed the resident's note and discussed the case with the resident. I agree with the resident's findings and plan as documented. SUBJECTIVE: 68 yo M with x of HTN, IDDM (on Levemir and Novolog), CHF, TIA, COPD, bladder CA (s/p total cystectomy w/ urostomy 2014), and CKD 4 who presents to the with R flank pain x 2 days. Pain started suddenly, worsened and patient cannot walk. No history of trauma. OBJECTIVE: Last Vital Signs Temp Pulse Resp BP Pulse Ox 98 F 76 16 137/66 98 04/08/19 02:50 04/08/19 02:50 04/08/19 02:50 04/08/19 02:50 04/08/19 02:50 gen- appears in pain, morbidly obese heent - at, nc neck supple cv-s1+s2+rrr chest clear abd -right right ileal conduit pouch, exquisit right flank pain to palpation ext -2+ pedal edema skin -no rashes appreciated Abnormal Lab Results 04/07/19 04/07/19 21:28 21:28 Sodium 135 L Chloride 108 H Carbon Dioxide 18 L BUN 57.2 H Creatinine 3.1 H Random Glucose 378 H Urine Protein 2+ H Urine Blood 1+ H Ur Leukocyte Esterase 3+ H ct scan - negative for renal stones, pyelo ASSESSMENT AND PLAN: right flank pain - uncertain etiology. Doubt pyelo since no fevers , leukocytosis. Possibly musculoskeletal- muscle spasm? No rash to suggest zoster. -med/surg -trial of Robaxin -avoid NSAIDs due to CKD -morphine prn for pain control -can give empirically ceftriaxone for now -c/w meds for chronic medical issues -dvt ppx
[2019-04-08] MEDS: HEPARIN NA (PORCINE) 5,000 UNITS/ML 1ML VIAL SQ SCH ×3 (05:55→22:02)
[2019-04-08] MEDS ORDERED: CYCLOBENZAPRINE HCL 10 MG TABLET (FP) PO PRN (06:12)
[2019-04-08] MEDS ORDERED: HEPARIN NA (PORCINE) 5,000 UNITS/ML 1ML VIAL ONE (06:19)
[2019-04-08] MEDS ORDERED: METHOCARBAMOL 500 MG TABLET ONE (06:19)
--- NOTE | 2019-04-08 07:20 | HP ---
CHIEF COMPLAINT: Right flank pain for the past 2 days PCP: Dr. Howard HISTORY OF PRESENT ILLNESS: This is a 68 year old male with PMH significant for Bladder CA s/p cystectomy with ileal diversion, HTN, DM, CHF, TIA, and COPD. He presented to the ER from home with complaints of gradually worsening right flank pain for the past 2 days , which was sudden in onset, 10/10 in intensity, and sharp as well as constant in nature, aggravated by moving and alleviated by lying flat. He endorses chills but no fevers, with no associated changes in the smell, volume, or color of the urine in his bag. He reports last having a UTI last year for which he was hospitalized. There are no other recent illnesses, exposure to sick contacts , or changes in medicine. ER course was notable for: (1) CT AP prelim read: no evidence of pyelonephritis, left renal stone (pain on right), and inguinal lymphadenopathy (2) Zosyn 3.375mg (WBC normal, no fever) (3) 5 units Novolog (Glucose 378) Recent Travel: None PAST MEDICAL HISTORY: Bladder CA s/p cystectomy with ileal diversion HTN CHF TIA COPD DM: Appears to be poorly controlled, normal ranges in 300s, checks it twice daily takes Levemir 50 units and Novolog 50 units in morning and at night PAST SURGICAL HISTORY: Bladder CA s/p cystectomy with ileal diversion Right knee surgery Social History: Smoking: Quit 20 years ago, 1/2 ppd for 10 years, for 10 years Alcohol: denies Drugs: denies Allergies shrimp Allergy (Intermediate, Verified 04/07/19 21:08) Vomiting HOME MEDICATIONS: Home Medications Medication Instructions Recorded Atorvastatin Ca [Lipitor] 10 mg PO DAILY 06/07/17 Cholecalciferol (Vitamin D3) 1,000 unit PO DAILY 06/07/17 [Vitamin D3] Cyanocobalamin [Vitamin B12 -] 1,000 mcg PO DAILY 06/07/17 Doxazosin Mesylate [Cardura -] 4 mg PO DAILY 06/07/17 Furosemide [Lasix -] 40 mg PO DAILY 06/07/17 Multivitamin [One Daily] 1 each PO DAILY 06/07/17 Insulin Detemir [Levemir Flextouch] 60 unit SQ HS 11/05/17 Aspirin 81 mg PO DAILY 06/18/18 Gabapentin 300 mg PO DAILY 06/18/18 Sodium Bicarbonate - 1,300 mg PO TID #90 tablet 06/22/18 Azithromycin [Zithromax 250mg 250 mg PO UTDICT #6 tab 11/03/18 Tablets -] Benzonatate [Tessalon Pearls -] 100 mg PO TID PRN #21 capsule 11/03/18 Budesonide/Formeterol Fumarate 1 inh PO BID 11/03/18 [SYMBICORT 160/4.5mcg -] Ipratropium/Albuterol Sulfate 4 gm IH BID 11/03/18 [Combivent Respimat Inhal [place]] Ampicillin Trihydrate 500 mg PO QID #28 capsule 04/08/19 REVIEW OF SYSTEMS CONSTITUTIONAL: Absent: fever, chills, diaphoresis, generalized weakness, malaise, loss of appetite, weight change HEENT: Absent: rhinorrhea, nasal congestion, throat pain, throat swelling, difficulty swallowing, mouth swelling, ear pain, eye pain, visual changes CARDIOVASCULAR: Absent: chest pain, syncope, palpitations, irregular heart rate, lightheadedness , peripheral edema RESPIRATORY: Absent: cough, shortness of breath, dyspnea with exertion, orthopnea, wheezing, stridor, hemoptysis GASTROINTESTINAL: abdominal pain Absent: abdominal pain, abdominal distension, nausea, vomiting, diarrhea, constipation, melena, hematochezia GENITOURINARY: Absent: dysuria, frequency, urgency, hesitancy, hematuria, flank pain, genital pain MUSCULOSKELETAL: Absent: myalgia, arthralgia, joint swelling, back pain, neck pain SKIN: Absent: rash, itching, pallor HEMATOLOGIC/IMMUNOLOGIC: Absent: easy bleeding, easy bruising, lymphadenopathy, frequent infections ENDOCRINE: Absent: unexplained weight gain, unexplained weight loss, heat intolerance, cold intolerance NEUROLOGIC: Absent: headache, focal weakness or paresthesias, dizziness, unsteady gait, seizure, mental status changes, bladder or bowel incontinence PSYCHIATRIC: Absent: anxiety, depression, suicidal or homicidal ideation, hallucinations. PHYSICAL EXAMINATION Vital Signs - 24 hr 04/07/19 04/08/19 04/08/19 21:08 02:50 06:56 Temperature 99.1 F 98 F 97.5 F L Pulse Rate 78 Pulse Rate [ 76 72 Left Radial] Respiratory 20 16 18 Rate Blood Pressure 157/82 Blood Pressure 137/66 144/72 [Left Arm] O2 Sat by Pulse 97 98 98 Oximetry (%) GENERAL: Awake, alert, and fully oriented, in no acute distress. HEAD: Normal with no signs of trauma. EYES: Pupils equal, round and reactive to light, extraocular movements intact, sclera anicteric, conjunctiva clear. No lid lag. EARS, NOSE, THROAT: Ears normal, nares patent, oropharynx clear without exudates. Moist mucous membranes. NECK: Normal range of motion, supple without lymphadenopathy, JVD, or masses. LUNGS: Breath sounds equal, clear to auscultation bilaterally. No wheezes, and no crackles. No accessory muscle use. HEART: Regular rate and rhythm, normal S1 and S2 without murmur, rub or gallop. ABDOMEN: Soft, marked tenderness in RUQ and RLQ, Right sided CVA tenderness, not distended, normoactive bowel sounds, no masses MUSCULOSKELETAL: Limited range of motion at all joints due to body habitus UPPER EXTREMITIES: 2+ pulses, warm, well-perfused. No cyanosis. No clubbing. No peripheral edema. LOWER EXTREMITIES: D2+ non pitting edema NEUROLOGICAL: Cranial nerves II-XII intact. Normal speech. Normal gait. PSYCHIATRIC: Cooperative. Good eye contact. Appropriate mood and affect. SKIN: Warm, dry, normal turgor, no rashes or lesions noted, normal capillary refill. Laboratory Results - last 24 hr 04/07/19 04/07/19 04/07/19 21:28 21:28 21:28 WBC 8.7 RBC 4.57 Hgb 12.8 Hct 37.6 MCV 82.1 MCH 28.0 MCHC 34.0 RDW 15.9 Plt Count 225 MPV 8.2 Absolute Neuts (auto) 6.6 Neutrophils % 75.3 Lymphocytes % 12.4 Monocytes % 8.3 Eosinophils % 3.3 Basophils % 0.7 D Nucleated RBC % 0 PT with INR 12.00 INR 1.02 Sodium 135 L Potassium 4.5 Chloride 108 H Carbon Dioxide 18 L Anion Gap 9 BUN 57.2 H Creatinine 3.1 H Est GFR (CKD-EPI)AfAm 22.41 Est GFR (CKD-EPI)NonAf 19.33 Random Glucose 378 H Calcium 9.1 Total Bilirubin 0.3 AST 16 ALT 33 Alkaline Phosphatase 90 Total Protein 7.1 Albumin 3.6 Urine Color Urine Appearance Urine pH Ur Specific [place] Urine Protein Urine Glucose (UA) Urine Ketones Urine Blood Urine Nitrite Urine Bilirubin Urine Urobilinogen Ur Leukocyte Esterase Urine WBC (Auto) Urine RBC (Auto) Urine Casts (Auto) U Pathogenic Cast Auto U Epithel Cells (Auto) Urine Crystals (Auto) Urine Bacteria (Auto) 04/07/19 21:28 WBC RBC Hgb Hct MCV MCH MCHC RDW Plt Count MPV Absolute Neuts (auto) Neutrophils % Lymphocytes % Monocytes % Eosinophils % Basophils % Nucleated RBC % PT with INR INR Sodium Potassium Chloride Carbon Dioxide Anion Gap BUN Creatinine Est GFR (CKD-EPI)AfAm Est GFR (CKD-EPI)NonAf Random Glucose Calcium Total Bilirubin AST ALT Alkaline Phosphatase Total Protein Albumin Urine Color Yellow Urine Appearance Cloudy Urine pH 7.5 Ur Specific [place] 1.013 Urine Protein 2+ H Urine Glucose (UA) Negative Urine Ketones Negative Urine Blood 1+ H Urine Nitrite Negative Urine Bilirubin Negative Urine Urobilinogen 0.2 Ur Leukocyte Esterase 3+ H Urine WBC (Auto) 66 Urine RBC (Auto) 8 Urine Casts (Auto) 85 U Pathogenic Cast Auto None seen U Epithel Cells (Auto) 2.4 Urine Crystals (Auto) Amorphous phosphates Urine Bacteria (Auto) 2737.2 ASSESSMENT/PLAN: This is a 68 year old male with PMH significant for Bladder CA s/p cystectomy with ileal diversion, HTN, DM, CHF, TIA, and COPD. He presented to the ER from home with complaints of gradually worsening right flank pain for the past 2 days. #Flank pain - Unlikely to be Pyelo due to lack of radiographic evidence or fever, white count. Superficial infection also unlikely due to lack of erythema/rash, no dermatome distribution of pain so herpes unlikely. May be muscular in origin - UA showed 3+ LE with 66WBC and 2.7K bacteria, but taken from bag - Flexeril 10mg PO TID - Robaxin 1000mg PO once - Morphine 2mg Q4H PRN #ESRD - Avoid nephrotoxic agents (NSAIDs etc) - Is currently discussing HD with Philosophy Instructor # DVT PE - 5000 SQ TID Visit type - Emergency Visit Emergency Visit: Yes ED Registration Date: 04/08/19 Care time: The patient presented to the Emergency Department on the above date and was hospitalized for further evaluation of their emergent condition. - New Patient This patient is new to me today: Yes Date on this admission: 04/08/19 - Critical Care Critical Care patient: No ATTENDING PHYSICIAN STATEMENT I saw and evaluated the patient. I reviewed the resident's note and discussed the case with the resident. I agree with the resident's findings and plan as documented. SUBJECTIVE: OBJECTIVE: ASSESSMENT AND PLAN:
[2019-04-08] MEDS ORDERED: MORPHINE SULFATE 2 MG/ML VIAL ONE (07:32)
[2019-04-08 09:47] LABS: BASO % 0.7 % (0-2.0); EOS % 3.8 % (0-4.5); HEMATOCRIT 38.6 % (35.4-49); HEMOGLOBIN 12.9 GM/dL (11.7-16.9); LYMPH % 11.3 % (8-40); MCH 27.9 pg (25.7-33.7); MCHC 33.5 g/dl (32.0-35.9); MEAN CELL VOLUME 83.3 fl (80-96); MEAN PLT VOLUME 8.1 fl (7.5-11.1); MONO % 7.2 % (3.8-10.2); PLATELET COUNT 223 K/MM3 (134-434); RBC 4.63 M/mm3 (4.00-5.60); WHITE BLOOD COUNT 7.5 K/mm3 (4.0-10.0)
[2019-04-08 10:21] LABS: ALBUMIN 3.5 g/dl (3.4-5.0); BILIRUBIN,TOTAL 0.5 mg/dL (0.2-1); BLOOD UREA NITROGEN 56.5 mg/dL (7-18); MAGNESIUM 2.1 mg/dL (1.8-2.4); POTASSIUM 4.3 mmol/L (3.5-5.1)
--- NOTE | 2019-04-08 13:52 | CON.ID ---
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 History of Recent Travel: No Home Medications - Allergies Allergies/Adverse Reactions: Allergies Allergy/AdvReac Type Severity Reaction Status Date / Time shrimp Allergy Intermediate Vomiting Verified 04/07/19 21:08 - Home Medications Home Medications: Ambulatory Orders Atorvastatin Ca [Lipitor] 10 mg PO DAILY 06/07/17 Cholecalciferol (Vitamin D3) [Vitamin D3] 1,000 unit PO DAILY 06/07/17 Cyanocobalamin [Vitamin B12 -] 1,000 mcg PO DAILY 06/07/17 Doxazosin Mesylate [Cardura -] 4 mg PO DAILY 06/07/17 Furosemide [Lasix -] 40 mg PO DAILY 06/07/17 Multivitamin [One Daily] 1 each PO DAILY 06/07/17 Insulin Detemir [Levemir Flextouch] 50 unit SQ HS 11/05/17 Aspirin 81 mg PO DAILY 06/18/18 Gabapentin 300 mg PO DAILY 06/18/18 Budesonide/Formeterol Fumarate [SYMBICORT 160/4.5mcg -] 1 inh PO BID 11/03/18 Ipratropium/Albuterol Sulfate [Combivent Respimat 20-100 Mcg] 4 gm IH BID Cyclobenzaprine HCl 10 mg PO TID PRN #9 tablet 04/08/19 Insulin (Novolog) [Novolog -] 50 units SQ AM 04/08/19 Sodium Bicarbonate - 650 mg PO BID 04/08/19 Physical Exam Vital Signs: Vital Signs Temperature 97.5 F L 04/08/19 06:56 Pulse Rate 72 04/08/19 06:56 Respiratory Rate 18 04/08/19 06:56 Blood Pressure 144/72 04/08/19 06:56 O2 Sat by Pulse Oximetry (%) 98 09/20/19 06:56 Labs: CBC, BMP 04/08/19 09:26 04/08/19 09:26
[2019-04-08] MEDS ORDERED: PIPERACILLIN/TAZOB 2.25 GM 2.25 GM/50 ML BAG IVPB ONE (14:04)
[2019-04-08] MEDS: PIPERACILLIN/TAZOB 2.25 GM 2.25 GM in DEXTROSE 5%-WATER - 50 ML IVPB SCH ×2 (14:13→19:37)
[2019-04-08] MEDS: CYCLOBENZAPRINE HCL 10 MG TABLET (FP) PO SCH ×2 (14:13→22:02)
--- NOTE | 2019-04-08 14:18 | EKG ---
Test Reason : Blood Pressure : / mmHG Vent. Rate : 067 BPM Atrial Rate : 067 BPM P-R Int : 196 ms QRS Dur : 104 ms QT Int : 402 ms P-R-T Axes : 024 -53 -14 degrees QTc Int : 424 ms POOR DATA QUALITY, INTERPRETATION MAY BE ADVERSELY AFFECTED NORMAL SINUS RHYTHM LEFT ANTERIOR FASCICULAR BLOCK VOLTAGE CRITERIA FOR LEFT VENTRICULAR HYPERTROPHY NONSPECIFIC T WAVE ABNORMALITY ABNORMAL ECG Confirmed by DARYL LANE, PADMINI ([id number]) on 04/08/2019 2:17:45 PM Referred By: Confirmed By:PADMINI BRITO MD
--- NOTE | 2019-04-08 16:10 | PN ---
<Shan Moody - Last Filed: 04/08/19 16:05> Physical Exam: SUBJECTIVE: Patient seen and examined at bedside. OBJECTIVE: Vital Signs Period Temp Pulse Resp BP Sys/Argueta Pulse Ox Last 24 Hr 97.5 F-99.1 F 72-78 16-20 137-157/66-82 97-98 GEN: AAOx3, NAD HEENT: NCAT, EOMI Neck: supple, no jvd Cardio: s1s2, rrr, no mrg noted Pulm: cta b/l Abd: obese, nontender, ileostomy for diversion s/p cystectomy present and draining urine. TTP R flank Laboratory Results - last 24 hr 04/07/19 04/07/19 04/07/19 21:28 21:28 21:28 WBC 8.7 RBC 4.57 Hgb 12.8 Hct 37.6 MCV 82.1 MCH 28.0 MCHC 34.0 RDW 15.9 Plt Count 225 MPV 8.2 Absolute Neuts (auto) 6.6 Neutrophils % 75.3 Lymphocytes % 12.4 Monocytes % 8.3 Eosinophils % 3.3 Basophils % 0.7 D Nucleated RBC % 0 PT with INR 12.00 INR 1.02 Sodium 135 L Potassium 4.5 Chloride 108 H Carbon Dioxide 18 L Anion Gap 9 BUN 57.2 H Creatinine 3.1 H Est GFR (CKD-EPI)AfAm 22.41 Est GFR (CKD-EPI)NonAf 19.33 POC Glucometer Random Glucose 378 H Calcium 9.1 Phosphorus Magnesium Total Bilirubin 0.3 AST 16 ALT 33 Alkaline Phosphatase 90 Total Protein 7.1 Albumin 3.6 Urine Color Urine Appearance Urine pH Ur Specific [place] Urine Protein Urine Glucose (UA) Urine Ketones Urine Blood Urine Nitrite Urine Bilirubin Urine Urobilinogen Ur Leukocyte Esterase Urine WBC (Auto) Urine RBC (Auto) Urine Casts (Auto) U Pathogenic Cast Auto U Epithel Cells (Auto) Urine Crystals (Auto) Urine Bacteria (Auto) 04/07/19 04/08/19 04/08/19 21:28 09:26 09:26 WBC 7.5 RBC 4.63 Hgb 12.9 Hct 38.6 MCV 83.3 MCH 27.9 MCHC 33.5 RDW 16.0 H Plt Count 223 MPV 8.1 Absolute Neuts (auto) 5.7 Neutrophils % 77.0 Lymphocytes % 11.3 Monocytes % 7.2 Eosinophils % 3.8 Basophils % 0.7 Nucleated RBC % 0 PT with INR INR Sodium 136 Potassium 4.3 Chloride 110 H Carbon Dioxide 18 L Anion Gap 8 BUN 56.5 H Creatinine 3.0 H Est GFR (CKD-EPI)AfAm 23.31 Est GFR (CKD-EPI)NonAf 20.11 POC Glucometer Random Glucose 290 H Calcium 9.0 Phosphorus 3.0 Magnesium 2.1 Total Bilirubin 0.5 AST 17 ALT 31 Alkaline Phosphatase 85 Total Protein 7.0 Albumin 3.5 Urine Color Yellow Urine Appearance Cloudy Urine pH 7.5 Ur Specific [place] 1.013 Urine Protein 2+ H Urine Glucose (UA) Negative Urine Ketones Negative Urine Blood 1+ H Urine Nitrite Negative Urine Bilirubin Negative Urine Urobilinogen 0.2 Ur Leukocyte Esterase 3+ H Urine WBC (Auto) 66 Urine RBC (Auto) 8 Urine Casts (Auto) 85 U Pathogenic Cast Auto None seen U Epithel Cells (Auto) 2.4 Urine Crystals (Auto) Amorphous phosphates Urine Bacteria (Auto) 2737.2 04/08/19 09:32 WBC RBC Hgb Hct MCV MCH MCHC RDW Plt Count MPV Absolute Neuts (auto) Neutrophils % Lymphocytes % Monocytes % Eosinophils % Basophils % Nucleated RBC % PT with INR INR Sodium Potassium Chloride Carbon Dioxide Anion Gap BUN Creatinine Est GFR (CKD-EPI)AfAm Est GFR (CKD-EPI)NonAf POC Glucometer 261 Random Glucose Calcium Phosphorus Magnesium Total Bilirubin AST ALT Alkaline Phosphatase Total Protein Albumin Urine Color Urine Appearance Urine pH Ur Specific [place] Urine Protein Urine Glucose (UA) Urine Ketones Urine Blood Urine Nitrite Urine Bilirubin Urine Urobilinogen Ur Leukocyte Esterase Urine WBC (Auto) Urine RBC (Auto) Urine Casts (Auto) U Pathogenic Cast Auto U Epithel Cells (Auto) Urine Crystals (Auto) Urine Bacteria (Auto) Active Medications Generic Name Dose Route Start Last Admin Trade Name Freq PRN Reason Stop Dose Admin Acetaminophen 650 mg 04/08/19 04:59 Tylenol - PO Q6H PRN FEVER Cyclobenzaprine HCl 10 mg 04/08/19 14:00 04/08/19 14:13 Flexeril - PO 10 mg TID SHANEL Administration Heparin Sodium (Porcine) 5,000 unit 04/08/19 06:15 04/08/19 14:13 Heparin - SQ 5,000 unit TID SHANEL Administration Piperacillin Sod/Tazobactam 50 mls @ 100 mls/hr 04/08/19 14:00 04/08/19 14:13 Sod 2.25 gm/ Dextrose IVPB 100 mls/hr Q8H-IV SHANEL Administration Protocol Morphine Sulfate 2 mg 04/08/19 04:59 04/08/19 07:35 Morphine Sulfate IVPUSH 2 mg Q4H PRN Administration PAIN LEVEL 7 - 10 ASSESSMENT/PLAN: This is a 68 year old male with PMH significant for Bladder CA s/p cystectomy with ileal diversion, HTN, DM, CHF, TIA, and COPD. He presented to the ER from home with complaints of gradually worsening right flank pain for the past 2 days. #Flank pain - DDX includes pyelo, msk, early zoster - UA showed 3+ LE with 66WBC and 2.7K bacteria, but taken from bag - Flexeril - Morphine -Zosyn per ID -acetaminophen #ESRD - Avoid nephrotoxic agents (NSAIDs etc) - Is currently discussing HD with Folding Machine Tender # DVT PE - 5000 SQ TID Visit type - Emergency Visit Emergency Visit: Yes ED Registration Date: 04/08/19 Care time: The patient presented to the Emergency Department on the above date and was hospitalized for further evaluation of their emergent condition. - New Patient This patient is new to me today: Yes Date on this admission: 04/08/19 - Critical Care Critical Care patient: No ATTENDING PHYSICIAN STATEMENT I saw and evaluated the patient. I reviewed the resident's note and discussed the case with the resident. I agree with the resident's findings and plan as documented. SUBJECTIVE: OBJECTIVE: ASSESSMENT AND PLAN: <Markus Cota - Last Filed: 04/09/19 10:08> Physical Exam: Seen and examined; agree with resident note aside from as supplemented by myself. Verified all price components of history and physical exam. ATTENDING PHYSICIAN STATEMENT I saw and evaluated the patient. I reviewed the resident's note and discussed the case with the resident. I agree with the resident's findings and plan as documented. SUBJECTIVE: OBJECTIVE: ASSESSMENT AND PLAN:
[2019-04-08] MEDS ORDERED: PIPERACILLIN/TAZOBACTAM 2.25 GM VIAL IVPB ONE (19:23)
[2019-04-08] MEDS ORDERED: DEXTROSE 5%-WATER - 50 ML IVPB ONE (19:23)
[2019-04-08] MEDS: INSULIN SLIDING SCALE (NOVOLOG) 1 VIAL SQ SCH (23:31)
[2019-04-09] MEDS ORDERED: PIPERACILLIN/TAZOBACTAM 2.25 GM VIAL IVPB ONE ×3 (01:42→16:46)
[2019-04-09] MEDS ORDERED: DEXTROSE 5%-WATER - 50 ML IVPB ONE ×3 (01:42→16:46)
[2019-04-09] MEDS: PIPERACILLIN/TAZOB 2.25 GM 2.25 GM in DEXTROSE 5%-WATER - 50 ML IVPB SCH ×3 (02:54→17:40)
[2019-04-09] MEDS ORDERED: INSULIN SLIDING SCALE (NOVOLOG) 1 VIAL SQ SCH (07:00)
[2019-04-09] MEDS: HEPARIN NA (PORCINE) 5,000 UNITS/ML 1ML VIAL SQ SCH ×3 (07:01→21:47)
[2019-04-09] MEDS: CYCLOBENZAPRINE HCL 10 MG TABLET (FP) PO SCH ×3 (07:02→21:46)
[2019-04-09] MEDS: INSULIN SLIDING SCALE (NOVOLOG) 1 VIAL SQ SCH ×4 (07:02→22:14)
[2019-04-09 07:06] LABS: HEMATOCRIT 37.4 % (35.4-49); HEMOGLOBIN 12.5 GM/dL (11.7-16.9); MCH 27.9 pg (25.7-33.7); MCHC 33.4 g/dl (32.0-35.9); MEAN CELL VOLUME 83.5 fl (80-96); MEAN PLT VOLUME 8.1 fl (7.5-11.1); PLATELET COUNT 214 K/MM3 (134-434); RBC 4.48 M/mm3 (4.00-5.60); RDW 16.3 % (11.9-15.9); WHITE BLOOD COUNT 6.5 K/mm3 (4.0-10.0)
[2019-04-09 07:13] LABS: BLOOD UREA NITROGEN 60.3 mg/dL (7-18); CALCIUM 8.8 mg/dL (8.5-10.1); CREATININE 3.1 mg/dL (0.55-1.3)
--- NOTE | 2019-04-09 07:44 | PN ---
Physical Exam: SUBJECTIVE: Patient seen and examined; meds not reconciled though requested. Will investigate and discuss. Patient had uncontrolled glucose overnight; his home levemir was being held for unknown reasons. Restarting and adjusting SSI. Holding AM humalog as he is on SSI. No DKA or HONK with labs. Pain is improved; I personally called his pharmacy and was on hold over 20 minutes. Verified it is a 24 hour [facility]. Pain is improved this AM. Culture is stated to be contaminated and repeat requested; will order and discuss with Dr. aBires. 10 sys ROS done and negative aside from HPI OBJECTIVE: Vital Signs Period Temp Pulse Resp BP Sys/Argueta Pulse Ox Last 24 Hr 96.6 F-98.7 F 69-79 16-20 151-174/86-96 97-100 GENERAL: The patient is awake, alert, and fully oriented, in no acute distress. HEAD: Normal with no signs of trauma. EYES: PERRL, extraocular movements intact, sclera anicteric, conjunctiva clear. No ptosis. ENT: Ears normal, nares patent, oropharynx clear without exudates, moist mucous membranes. NECK: Trachea midline, full range of motion, supple. LUNGS: Breath sounds equal, clear to auscultation bilaterally, no wheezes, no crackles, no accessory muscle use. HEART: Regular rate and rhythm, S1, S2 without murmur, rub or gallop. ABDOMEN: Soft, nontender, nondistended, normoactive bowel sounds, urostomy bag full EXTREMITIES: 2+ pulses, warm, well-perfused, no edema. NEUROLOGICAL: Cranial nerves II through XII grossly intact. Normal speech, gait not observed. PSYCH: Normal mood, normal affect. SKIN: Warm, dry, normal turgor, no rashes or lesions noted Laboratory Results - last 24 hr 04/08/19 04/08/19 04/08/19 09:26 09:26 09:32 WBC 7.5 RBC 4.63 Hgb 12.9 Hct 38.6 MCV 83.3 MCH 27.9 MCHC 33.5 RDW 16.0 H Plt Count 223 MPV 8.1 Absolute Neuts (auto) 5.7 Neutrophils % 77.0 Lymphocytes % 11.3 Monocytes % 7.2 Eosinophils % 3.8 Basophils % 0.7 Nucleated RBC % 0 Sodium 136 Potassium 4.3 Chloride 110 H Carbon Dioxide 18 L Anion Gap 8 BUN 56.5 H Creatinine 3.0 H Est GFR (CKD-EPI)AfAm 23.31 Est GFR (CKD-EPI)NonAf 20.11 POC Glucometer 261 Random Glucose 290 H Calcium 9.0 Phosphorus 3.0 Magnesium 2.1 Total Bilirubin 0.5 AST 17 ALT 31 Alkaline Phosphatase 85 Total Protein 7.0 Albumin 3.5 04/08/19 04/09/19 04/09/19 22:01 06:30 06:54 WBC RBC Hgb Hct MCV MCH MCHC RDW Plt Count MPV Absolute Neuts (auto) Neutrophils % Lymphocytes % Monocytes % Eosinophils % Basophils % Nucleated RBC % Sodium 137 Potassium 5.0 Chloride 112 H Carbon Dioxide 17 L Anion Gap 8 BUN 60.3 H Creatinine 3.1 H Est GFR (CKD-EPI)AfAm 22.41 Est GFR (CKD-EPI)NonAf 19.33 POC Glucometer 358 292 Random Glucose 288 H Calcium 8.8 Phosphorus Magnesium Total Bilirubin AST ALT Alkaline Phosphatase Total Protein Albumin Active Medications Generic Name Dose Route Start Last Admin Trade Name Freq PRN Reason Stop Dose Admin Acetaminophen 650 mg 04/08/19 04:59 Tylenol - PO Q6H PRN FEVER Cyclobenzaprine HCl 10 mg 04/08/19 14:00 04/09/19 07:02 Flexeril - PO 10 mg TID SHANEL Administration Heparin Sodium (Porcine) 5,000 unit 04/08/19 06:15 04/09/19 07:01 Heparin - SQ 5,000 unit TID SHANEL Administration Piperacillin Sod/Tazobactam 50 mls @ 100 mls/hr 04/08/19 14:00 04/09/19 02:54 Sod 2.25 gm/ Dextrose IVPB 100 mls/hr Q8H-IV SHANEL Administration Protocol Insulin Aspart 1 vial 04/08/19 23:22 04/09/19 07:02 Novolog Vial Sliding Scale - SQ 6 unit ACHS SHANEL Administration Protocol Morphine Sulfate 2 mg 04/08/19 04:59 04/08/19 07:35 Morphine Sulfate IVPUSH 2 mg Q4H PRN Administration PAIN LEVEL 7 - 10 ASSESSMENT/PLAN: Patient presents for back pain with likely pyelonephritis. He is being followed by Dr. Baires from [place]; BMI is 47 and he will need MARLON screening so involving Dr. Snider and ordered MARLON screen. He is hemodynamically stable and afebrile. Contaminated culture reordered. Restarding his home long-acting insulin. Monitoring on the floor with consulting services. Also calling his Exercise Instruct Dr. Forbes. Probelms include: -Acute pyelonephritis in the setting of urostomy (ID following, on IV zosyn, repeating cx as contam, follow closely) -Uncontrolled DM (Restarting home insulin, adjusted SSI and will hold AM humalog as SSI inpatient. Adjust QD and follow AC+HS glucose checks) -HTN (Restarting home doxazosin, monitoring) -CKD-IV (Patient of Dr. Forbes; consulting. Continue TID bicarb replacement and monitor UOP and QD BMP, avoid nephrotoxins. Restarting PO Lasix 40mg QD) -Status post chronic urostomy with subsequent acid base shifts seen, per prior visits -Morbid Obesity (Will discuss bariatric referral, MARLON study ordered) -COPD hx (restarted home inhalers, consutling Dr. Snider) Full Code Visit type - Emergency Visit Emergency Visit: No - New Patient This patient is new to me today: No - Critical Care Critical Care patient: No
[2019-04-09] MEDS ORDERED: INSULIN (LEVEMIR) 100 UNITS/ML UNITS SQ ONE (10:43)
[2019-04-09] MEDS ORDERED: FUROSEMIDE 40 MG TABLET (FP) PO SCH (10:45)
--- NOTE | 2019-04-09 10:51 | PN ---
Progress Note (short form) - Note Progress Note: PULMONARY CONSULTATION DICTATED 04/09/19 IMP COPD OSAS NOT ON CPAP MORBID OBESITY R FLANK PAIN PYELONEPHRITIS NEPHROLITHIASIS DM HTN H/O BLADDER CA S/P CYSTECTOMY,ILEAL DIVERSION CKD H/O TIA PLAN ABX O2 NEEDED INHALED BRONCHODILATORS REPEAT SLEEP SCREEN CONSIDER BARIATRIC SURGERY EVALUATION MONITOR LYTES,RENAL FUNCTION CHEST X-RAY DR RODNEY Problem List - Problems (1) Acute on chronic kidney failure Code(s): N17.9 - ACUTE KIDNEY FAILURE, UNSPECIFIED; N18.9 - CHRONIC KIDNEY DISEASE, UNSPECIFIED Qualifiers: Acute renal failure type: unspecified Chronic kidney disease stage: stage 4 (severe) Qualified Code(s): N17.9 - Acute kidney failure, unspecified; N18.4 - Chronic kidney disease, stage 4 (severe) (2) Urinary tract infection Code(s): N39.0 - URINARY TRACT INFECTION, SITE NOT SPECIFIED Qualifiers: Urinary tract infection type: site unspecified Hematuria presence: without hematuria Qualified Code(s): N39.0 - Urinary tract infection, site not specified (3) Anemia Code(s): D64.9 - ANEMIA, UNSPECIFIED (4) Bladder cancer Code(s): C67.9 - MALIGNANT NEOPLASM OF BLADDER, UNSPECIFIED (5) Chronic kidney disease Code(s): N18.9 - CHRONIC KIDNEY DISEASE, UNSPECIFIED Qualifiers: Chronic kidney disease stage: stage 4 (severe) Qualified Code(s): N18.4 - Chronic kidney disease, stage 4 (severe) (6) H/O total cystectomy Code(s): Z98.89 - OTHER SPECIFIED POSTPROCEDURAL STATES * DO NOT USE * (7) HLD (hyperlipidemia) Code(s): E78.5 - HYPERLIPIDEMIA, UNSPECIFIED (8) Hyperglycemia Code(s): R73.9 - HYPERGLYCEMIA, UNSPECIFIED (9) Hypertension Code(s): I10 - ESSENTIAL (PRIMARY) HYPERTENSION Qualifiers: Hypertension type: essential hypertension Qualified Code(s): I10 - Essential (primary) hypertension (10) Obesity Code(s): E66.9 - OBESITY, UNSPECIFIED Qualifiers: Obesity type: due to excess calories Obesity classification: unspecified obesity classification Serious obesity comorbidity presence: unspecified whether serious comorbidity present Qualified Code(s): E66.09 - Other obesity due to excess calories (11) Pyelitis or pyelonephritis in diseases classified elsewhere Code(s): N16 - RENAL TUBULO-INTERSTITIAL DISORD IN DISEASES CLASSD ELSWHR (12) Sleep apnea Code(s): G47.30 - SLEEP APNEA, UNSPECIFIED
[2019-04-09] MEDS: GABAPENTIN 300 MG CAPSULE (FP) PO SCH (11:19)
[2019-04-09] MEDS: SODIUM BICARBONATE 650 MG TABLET PO SCH ×2 (11:19→21:47)
[2019-04-09] MEDS: DOXAZOSIN MESYLATE 4 MG TABLET PO SCH (11:19)
[2019-04-09] MEDS: ASPIRIN 81 MG CHEWABLE TABLETS PO SCH (11:19)
[2019-04-09] MEDS: BUDESONIDE/FORMETEROL FUMARATE 160/4.5 mcg INHALER IH SCH ×2 (11:20→21:47)
--- NOTE | 2019-04-09 12:12 | PN ---
Progress Note, Physician History of Present Illness: feels much better flank pain better - Current Medication List Current Medications: Active Medications Acetaminophen (Tylenol -) 650 mg PO Q6H PRN PRN Reason: FEVER Aspirin (Asa -) 81 mg PO DAILY [facility] Last Admin: 04/09/19 11:19 Dose: 81 mg Atorvastatin Calcium (Lipitor -) 10 mg PO HS [facility] Budesonide/Formoterol Fumarate (Symbicort 160/4.5mcg -) 1 puff IH BID [facility] Last Admin: 04/09/19 11:20 Dose: 1 puff Cyclobenzaprine HCl (Flexeril -) 10 mg PO TID [facility] Last Admin: 04/09/19 07:02 Dose: 10 mg Doxazosin Mesylate (Cardura -) 4 mg PO DAILY [facility] Last Admin: 04/09/19 11:19 Dose: 4 mg Furosemide (Lasix -) 40 mg PO DAILY [facility] Last Admin: 04/09/19 11:19 Dose: 40 mg Gabapentin (Neurontin -) 300 mg PO DAILY [facility] Last Admin: 04/09/19 11:19 Dose: 300 mg Heparin Sodium (Porcine) (Heparin -) 5,000 unit SQ TID [facility] Last Admin: 04/09/19 07:01 Dose: 5,000 unit Piperacillin Sod/Tazobactam (Sod 2.25 gm/ Dextrose) 50 mls @ 100 mls/hr IVPB Q8H-IV [facility]; Protocol Last Admin: 04/09/19 11:31 Dose: 100 mls/hr Insulin Aspart (Novolog Vial Sliding Scale -) 1 vial SQ ACHS [facility]; Protocol Last Admin: 04/09/19 11:22 Dose: 10 units Morphine Sulfate (Morphine Sulfate) 2 mg IVPUSH Q4H PRN PRN Reason: PAIN LEVEL 7 - 10 Last Admin: 04/08/19 07:35 Dose: 2 mg Non-Formulary Medication (Ipratropium/Albuterol Sulfate [Combivent Respimat 20- 100 Mcg]) 4 gm IH BID [facility] Sodium Bicarbonate (Sodium Bicarbonate -) 650 mg PO BID [facility] Last Admin: 04/09/19 11:19 Dose: 650 mg - Objective Vital Signs: Vital Signs Temperature 96.6 F L 04/09/19 06:00 Pulse Rate 78 04/09/19 06:00 Respiratory Rate 20 04/09/19 06:00 Blood Pressure 151/88 04/09/19 06:00 O2 Sat by Pulse Oximetry (%) 97 04/08/19 20:00 Constitutional: Yes: No Distress, Calm Cardiovascular: Yes: S1, S2 Respiratory: Yes: Regular, CTA Bilaterally Gastrointestinal: Yes: Normal Bowel Sounds, Soft, Other (ileal conduit) Musculoskeletal: Yes: WNL Extremities: Yes: WNL Neurological: Yes: Alert, Oriented Psychiatric: Yes: Alert, Oriented Labs: CBC, BMP 04/09/19 06:30 04/09/19 06:30 INR, PTT INR 1.02 (0.83-1.09) 04/07/19 21:28 Assessment/Plan copd obesity rt flank pain uti dm htn ckd tia plan continue current mgmt abx monitor rest as per the team
--- NOTE | 2019-04-09 13:03 | CONS ---
DATE OF CONSULTATION: 04/09/2019 REFERRING PHYSICIAN: Markus Cota MD The patient is a 68-year-old male with past medical history of bladder cancer status post cystectomy with ileal diversion, TIA, congestive heart failure, COPD, diabetes, hypertension, obstructive sleep apnea, not using CPAP. Apparently had sleep studies a few years ago. CPAP did not help him. History of tobacco use, quit approximately 20 years ago, admitted to [facility] on April 08 with complaint of worsening right flank pain over 2 days' duration. Patient apparently started developing pain 2 days prior to admission, progressively got worse, suddenly became 10/10 in intensity, sharp, constant in nature, increasing with movement. Patient had fevers but no chills. Denied any chest pain or shortness of breath or cough or hemoptysis. Patient underwent a CT of the abdomen and pelvis in the ER, was noted to have a left renal stone, no evidence of acute pyelonephritis. He also had some inguinal adenopathy. He was placed on broad-spectrum antibiotics by ID for possible pyelonephritis. Patient does complain of shortness of breath with exertion. He denies any chronic cough or hemoptysis. PAST MEDICAL HISTORY: Again includes COPD, morbid obesity, congestive heart failure, TIA, diabetes, hypertension, chronic kidney disease, bladder cancer status post cystectomy with ileal diversion, and obstructive sleep apnea. SOCIAL HISTORY: History of tobacco use, quit greater than 20 years ago. 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 CURRENT MEDICATIONS: Include Symbicort, Combivent, sodium bicarbonate, Cardura, Tylenol, piperacillin, heparin subcutaneous, Neurontin, Flexeril, Lipitor, NovoLog, Lasix, aspirin, and morphine sulfate. PHYSICAL EXAMINATION: General: The patient is a morbidly obese male, wide awake, alert, in no acute distress, sitting out of bed in chair. Vital Signs: He is currently afebrile. Heart rate is 76. Respiratory rate is 20. O2 saturation is 97% on room air. Blood pressure is 151/88. HEENT: Exam is normocephalic, atraumatic. Neck: Supple. Heart: Regular, S1, S2. Chest: Diminished breath sounds bilaterally. Abdomen: Soft. Bowel sounds are positive. Extremities: Lower extremity edema. LABORATORY: UA 2+ protein, 1+ heme, 3+ leukocyte esterase, negative nitrites. WBC is 6.5, hemoglobin 12.5, hematocrit 37.4, with a platelet count of 214,000. Chemistries: BUN is 60, creatinine 3.1. Chest x-ray not performed. CT of the abdomen and pelvis: Wide-mouthed ventral hernia approximately 11 mm. Parasternal hernia is noted. There is no hydronephrosis. There was nonobstructing 4-mm nephrolithiasis on the left side. There was cystoprostatectomy and ileal pouch drainage to right lower quadrant. IMPRESSION: 1. Chronic obstructive pulmonary disease, currently stable. 2. Obstructive sleep apnea, currently not on continuous positive airway pressure. 3. Morbid obesity. 4. Right flank pain, possible pyelonephritis, possible renal stones. 5. Diabetes. 6. Hypertension. 7. History of bladder cancer status post cystectomy with ileal conduit. 8. Chronic kidney disease. PLAN: Antibiotics as per Infectious Disease, supplemental O2, monitor renal function, inhaled bronchodilators, repeat sleep screen, consider bariatric surgery evaluation. Monitor electrolytes, CBC. BOBO RODNEY M.D. [id number]
--- NOTE | 2019-04-09 13:43 | CONSULT ---
Consult Consult Specialty:: Nephrology Reason for Consultation:: CKD/flank pain - History of Present Illness Chief Complaint: right flank pain History of Present Illness: Pt is a 68 year old male with pmhx of htn, DM, CHF, TIA, bladder ca s/p cystectomy and urostomy, and CKD who presents to the ER with right flank pain. He was found to have a uti and admitted for treatment. He denies fevers or chills. He complains of lower ext edema. He denies shortness of breath. He does have CKD and follows with Dr Cain. - History Source History Provided By: Patient, Medical Record - Past Medical History CORE PASTER: Yes: CVA Cardio/Vascular: Yes: HTN, Hyperlipdemia Renal/: Yes: Renal Inusuff, Other (lucy durand) Endocrine: Yes: Diabetes Mellitus - Past Surgical History Past Surgical History: Yes: Cystectomy (05/2014) - Alcohol/Substance Use Hx Alcohol Use: No History of Substance Use: reports: None - Smoking History Smoking history: Former smoker Have you smoked in the past 12 months: No If you are a former smoker, when did you quit?: "years ago" - Social History Usual Living Arrangement: Alone ADL: Independent 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 History of Recent Travel: No Home Medications - Allergies Allergies/Adverse Reactions: Allergies Allergy/AdvReac Type Severity Reaction Status Date / Time shrimp Allergy Intermediate Vomiting Verified 04/07/19 21:08 - Home Medications Home Medications: Ambulatory Orders Atorvastatin Ca [Lipitor] 10 mg PO DAILY 06/07/17 Cholecalciferol (Vitamin D3) [Vitamin D3] 1,000 unit PO DAILY 06/07/17 Cyanocobalamin [Vitamin B12 -] 1,000 mcg PO DAILY 06/07/17 Doxazosin Mesylate [Cardura -] 4 mg PO DAILY 06/07/17 Furosemide [Lasix -] 40 mg PO DAILY 06/07/17 Multivitamin [One Daily] 1 each PO DAILY 06/07/17 Insulin Detemir [Levemir Flextouch] 50 unit SQ HS 11/05/17 Aspirin 81 mg PO DAILY 06/18/18 Gabapentin 300 mg PO DAILY 06/18/18 Budesonide/Formeterol Fumarate [SYMBICORT 160/4.5mcg -] 1 inh PO BID 11/03/18 Ipratropium/Albuterol Sulfate [Combivent Respimat 20-100 Mcg] 4 gm IH BID Cyclobenzaprine HCl 10 mg PO TID PRN #9 tablet 04/08/19 Insulin (Novolog) [Novolog -] 50 units SQ AM 04/08/19 Sodium Bicarbonate - 650 mg PO BID 04/08/19 Family Medical History Family History: Denies Review of Systems - Review of Systems Constitutional: reports: Malaise Eyes: reports: No Symptoms HENT: reports: No Symptoms Neck: reports: No Symptoms Cardiovascular: reports: Edema Respiratory: reports: SOB on Exertion Genitourinary: reports: Flank Pain Musculoskeletal: reports: No Symptoms Neurological: reports: No Symptoms Endocrine: reports: No Symptoms Hematology/Lymphatic: reports: No Symptoms Psychiatric: reports: No Symptoms Physical Exam Vital Signs: Vital Signs Temperature 97.7 F 04/09/19 10:00 Pulse Rate 72 04/09/19 10:00 Respiratory Rate 20 04/09/19 10:00 Blood Pressure 175/93 H 04/09/19 10:00 O2 Sat by Pulse Oximetry (%) 99 04/09/19 09:00 Constitutional: Yes: Calm Eyes: Yes: Conjunctiva Clear HENT: Yes: Atraumatic Neck: Yes: Supple Cardiovascular: Yes: S1, S2 Respiratory: Yes: CTA Bilaterally Gastrointestinal: Yes: Soft, Abdomen, Obese Renal/: Yes: Other (urostomy) Musculoskeletal: Yes: WNL Edema: Yes Edema: LLE: 2+, RLE: 2+ Integumentary: Yes: WNL Neurological: Yes: Oriented Psychiatric: Yes: Oriented Labs: CBC, BMP 04/09/19 06:30 04/09/19 06:30 Laboratory Tests 08/30/18 11/03/18 12/08/18 08:10 09:00 08:11 Creatinine 3.3 H 2.7 H 3.0 H 02/23/19 04/07/19 04/08/19 08:35 21:28 09:26 Creatinine 3.3 H 3.1 H 3.0 H 04/09/19 06:30 Creatinine 3.1 H Imaging - Results Cat Scan: Report Reviewed Problem List - Problems (1) Urinary tract infection Code(s): N39.0 - URINARY TRACT INFECTION, SITE NOT SPECIFIED Qualifiers: Urinary tract infection type: site unspecified Hematuria presence: without hematuria Qualified Code(s): N39.0 - Urinary tract infection, site not specified (2) Chronic kidney disease Code(s): N18.9 - CHRONIC KIDNEY DISEASE, UNSPECIFIED Qualifiers: Chronic kidney disease stage: stage 4 (severe) Qualified Code(s): N18.4 - Chronic kidney disease, stage 4 (severe) Assessment/Plan Current Medications Generic Name Dose Route Start Last Admin Trade Name Freq PRN Reason Stop Dose Admin Acetaminophen 650 mg 04/08/19 04:59 Tylenol - PO Q6H PRN FEVER Aspirin 81 mg 04/09/19 10:15 04/09/19 11:19 Asa - PO 81 mg DAILY [facility] Administration Atorvastatin Calcium 10 mg 04/09/19 22:00 Lipitor - PO HS [facility] Budesonide/Formoterol Fumarate 1 puff 04/09/19 10:15 04/09/19 11:20 Symbicort 160/4.5mcg - IH 1 puff BID [facility] Administration Cyclobenzaprine HCl 10 mg 04/08/19 14:00 04/09/19 07:02 Flexeril - PO 10 mg TID [facility] Administration Doxazosin Mesylate 4 mg 04/09/19 10:45 04/09/19 11:19 Cardura - PO 4 mg DAILY [facility] Administration Furosemide 40 mg 04/09/19 10:45 04/09/19 11:19 Lasix - PO 40 mg DAILY [facility] Administration Gabapentin 300 mg 04/09/19 10:45 04/09/19 11:19 Neurontin - PO 300 mg DAILY [facility] Administration Heparin Sodium (Porcine) 5,000 unit 04/08/19 06:15 04/09/19 07:01 Heparin - SQ 5,000 unit TID [facility] Administration Piperacillin Sod/Tazobactam 50 mls @ 100 mls/hr 04/08/19 14:00 04/09/19 11:31 Sod 2.25 gm/ Dextrose IVPB 100 mls/hr Q8H-IV [facility] Administration Protocol Insulin Aspart 1 vial 04/09/19 10:09 04/09/19 11:22 Novolog Vial Sliding Scale - SQ 10 units ACHS [facility] Administration Protocol Morphine Sulfate 2 mg 04/08/19 04:59 04/08/19 07:35 Morphine Sulfate IVPUSH 2 mg Q4H PRN Administration PAIN LEVEL 7 - 10 Non-Formulary Medication 4 gm 04/09/19 22:00 Ipratropium/Albuterol Sulfate [Combivent Respimat 20-100 Mcg] IH BID [facility] Sodium Bicarbonate 650 mg 04/09/19 10:15 04/09/19 11:19 Sodium Bicarbonate - PO 650 mg BID [facility] Administration Impression 1. CKD 2. UTI 3. bladder ca with urostomy 4. chf on lasix 5. copd 6. DM Plan - renal function stable - cont po bicarb - resume lasix, may need to increase dose - bp is not controlled, can add low dose hydralazine - repeat labs in am - follow cultures - abx per ID
[2019-04-09] MEDS: hydrALAZINE HCL 10 MG TABLET PO SCH ×2 (14:06→21:47)
[2019-04-09] MEDS: ATORVASTATIN CA 10 MG TABLET (FP) PO SCH (21:47)
[2019-04-09] MEDS ORDERED: PATIENT'S OWN MEDICATION (NON-FORMULARY) (Ipratropium/Albuterol Sulfate [Combivent Respima IH SCH (22:00)
[2019-04-09] MEDS ORDERED: PATIENT'S OWN MEDICATION (NON-FORMULARY) (Insulin Detemir [Levemir Flextouch] 50 UNIT) SQ SCH (22:00)
[2019-04-10] MEDS ORDERED: PIPERACILLIN/TAZOBACTAM 2.25 GM VIAL IVPB ONE ×3 (00:41→16:22)
[2019-04-10] MEDS ORDERED: DEXTROSE 5%-WATER - 50 ML IVPB ONE ×3 (00:41→16:22)
[2019-04-10] MEDS: PIPERACILLIN/TAZOB 2.25 GM 2.25 GM in DEXTROSE 5%-WATER - 50 ML IVPB SCH ×3 (01:07→17:24)
[2019-04-10] MEDS: CYCLOBENZAPRINE HCL 10 MG TABLET (FP) PO SCH ×3 (05:52→21:07)
[2019-04-10] MEDS: HEPARIN NA (PORCINE) 5,000 UNITS/ML 1ML VIAL SQ SCH ×3 (05:53→21:07)
[2019-04-10] MEDS: INSULIN SLIDING SCALE (NOVOLOG) 1 VIAL SQ SCH ×5 (06:07→21:07)
--- NOTE | 2019-04-10 08:44 | PN ---
Physical Exam: SUBJECTIVE: Patient seen and examined; no issues reported overnight. 25U BID resumed; increased Lasix to 60mg PO QD and checking renal function pannel now and Phos, Mg, etc. tomorrow. Discussed with Dr. Snider regarding MARLON evaluation, etc. He is in agreement with current plan and we will plan to follow through with his recommendations. Appreciate expert guidance. ID following; appreciate abx recs. Pending further final culture results. Repeat culture ordered by myself yesterday uncollected; will inquire. 10 sys ROS done and negative aside from HPI OBJECTIVE: Vital Signs Period Temp Pulse Resp BP Sys/Argueta Pulse Ox Last 24 Hr 97.7 F-98.2 F 72-88 18-20 154-175/72-93 98-99 GENERAL: The patient is awake, alert, and fully oriented, in no acute distress. HEAD: Normal with no signs of trauma. EYES: PERRL, extraocular movements intact, sclera anicteric, conjunctiva clear. No ptosis. ENT: Ears normal, nares patent, oropharynx clear without exudates, moist mucous membranes. NECK: Trachea midline, full range of motion, supple. LUNGS: Breath sounds equal, clear to auscultation bilaterally, no wheezes, no crackles, no accessory muscle use. HEART: Regular rate and rhythm, S1, S2 without murmur, rub or gallop. ABDOMEN: Soft, nontender, nondistended, normoactive bowel sounds, urostomy functioning with clear urine in bag. EXTREMITIES: 2+ pulses, warm, well-perfused, no edema. NEUROLOGICAL: Cranial nerves II through XII grossly intact. Normal speech, gait not observed. PSYCH: Normal mood, normal affect. SKIN: Warm, dry, normal turgor, no rashes or lesions noted Laboratory Results - last 24 hr 04/09/19 04/09/19 04/09/19 11:16 16:49 21:45 POC Glucometer 315 277 361 04/10/19 05:50 POC Glucometer 275 Active Medications Generic Name Dose Route Start Last Admin Trade Name Freq PRN Reason Stop Dose Admin Acetaminophen 650 mg 04/08/19 04:59 Tylenol - PO Q6H PRN FEVER Aspirin 81 mg 04/09/19 10:15 04/09/19 11:19 Asa - PO 81 mg DAILY [facility] Administration Atorvastatin Calcium 10 mg 04/09/19 22:00 04/09/19 21:47 Lipitor - PO 10 mg HS [facility] Administration Budesonide/Formoterol Fumarate 1 puff 04/09/19 10:15 04/09/19 21:47 Symbicort 160/4.5mcg - IH 1 puff BID [facility] Administration Cyclobenzaprine HCl 10 mg 04/08/19 14:00 04/10/19 05:52 Flexeril - PO 10 mg TID [facility] Administration Doxazosin Mesylate 4 mg 04/09/19 10:45 04/09/19 11:19 Cardura - PO 4 mg DAILY [facility] Administration Furosemide 60 mg 04/10/19 08:33 Lasix - PO DAILY [facility] Gabapentin 300 mg 04/09/19 10:45 04/09/19 11:19 Neurontin - PO 300 mg DAILY [facility] Administration Heparin Sodium (Porcine) 5,000 unit 04/08/19 06:15 04/10/19 05:53 Heparin - SQ 5,000 unit TID [facility] Administration Hydralazine HCl 10 mg 04/09/19 14:00 04/09/19 21:47 Apresoline - PO 10 mg BID [facility] Administration Piperacillin Sod/Tazobactam 50 mls @ 100 mls/hr 04/08/19 14:00 04/10/19 01:07 Sod 2.25 gm/ Dextrose IVPB 100 mls/hr Q8H-IV [facility] Administration Protocol Insulin Aspart 1 vial 04/09/19 10:09 04/10/19 06:07 Novolog Vial Sliding Scale - SQ 8 units ACHS [facility] Administration Protocol Insulin Detemir 25 units 04/10/19 10:00 Levemir Vial SQ BID [facility] Morphine Sulfate 2 mg 04/08/19 04:59 04/08/19 07:35 Morphine Sulfate IVPUSH 2 mg Q4H PRN Administration PAIN LEVEL 7 - 10 Sodium Bicarbonate 650 mg 04/09/19 10:15 04/09/19 21:47 Sodium Bicarbonate - PO 650 mg BID [facility] Administration ASSESSMENT/PLAN: Patient presents for back pain with likely pyelonephritis. He is being followed by Dr. Baires from ID; BMI is 47 and he will need MARLON screening so involving Dr. Snider and ordered MARLON screen. He is hemodynamically stable and afebrile. Contaminated culture reordered. Restarding his home long-acting insulin. Monitoring on the floor with consulting services. Also calling his [employer] Dr. Forbes. Probelms include: -Acute pyelonephritis in the setting of urostomy (ID following, on IV zosyn, repeating cx as contam, follow closely. Deescalate abx per ID. Repeat cx not yet obtained; will discuss.) -Uncontrolled DM (Restarting home insulin 25 BID, adjusted SSI and will hold AM humalog as SSI inpatient. Adjust QD and follow AC+HS glucose checks. I was informed that 50 was considered 'dangerous dose' range??? so this is why it was fractionated) -HTN (Restarting home doxazosin, monitoring) -CKD-IV (Patient of Dr. Forbes; consulting. Continue TID bicarb replacement and monitor UOP and QD BMP, avoid nephrotoxins. Increased Lasix to 60 and checking renal function today and tomorrow with Mg and Phos tomorrow) -Status post chronic urostomy with subsequent acid base shifts seen, per prior visits -Morbid Obesity (Will discuss bariatric referral, MARLON study ordered) -COPD hx (restarted home inhalers, consutling Dr. Snider) Full Code Visit type - Emergency Visit Emergency Visit: No - New Patient This patient is new to me today: No - Critical Care Critical Care patient: No
[2019-04-10 09:55] LABS: ALBUMIN 3.4 g/dl (3.4-5.0); BLOOD UREA NITROGEN 64.1 mg/dL (7-18); CALCIUM 9.1 mg/dL (8.5-10.1); CREATININE 3.4 mg/dL (0.55-1.3); POTASSIUM 4.9 mmol/L (3.5-5.1)
--- NOTE | 2019-04-10 09:57 | PN ---
Progress Note, Physician History of Present Illness: PULMONARY ALERT,FEELING BETTER LESS FLANK PAIN - Current Medication List Current Medications: Active Medications Acetaminophen (Tylenol -) 650 mg PO Q6H PRN PRN Reason: FEVER Aspirin (Asa -) 81 mg PO DAILY [facility] Last Admin: 04/09/19 11:19 Dose: 81 mg Atorvastatin Calcium (Lipitor -) 10 mg PO HS [facility] Last Admin: 04/09/19 21:47 Dose: 10 mg Budesonide/Formoterol Fumarate (Symbicort 160/4.5mcg -) 1 puff IH BID [facility] Last Admin: 04/09/19 21:47 Dose: 1 puff Cyclobenzaprine HCl (Flexeril -) 10 mg PO TID [facility] Last Admin: 04/10/19 05:52 Dose: 10 mg Doxazosin Mesylate (Cardura -) 4 mg PO DAILY [facility] Last Admin: 04/09/19 11:19 Dose: 4 mg Furosemide (Lasix -) 60 mg PO DAILY [facility] Gabapentin (Neurontin -) 300 mg PO DAILY [facility] Last Admin: 04/09/19 11:19 Dose: 300 mg Heparin Sodium (Porcine) (Heparin -) 5,000 unit SQ TID [facility] Last Admin: 04/10/19 05:53 Dose: 5,000 unit Hydralazine HCl (Apresoline -) 10 mg PO BID [facility] Last Admin: 04/09/19 21:47 Dose: 10 mg Piperacillin Sod/Tazobactam (Sod 2.25 gm/ Dextrose) 50 mls @ 100 mls/hr IVPB Q8H-IV [facility]; Protocol Last Admin: 04/10/19 01:07 Dose: 100 mls/hr Insulin Aspart (Novolog Vial Sliding Scale -) 1 vial SQ ACHS [facility]; Protocol Last Admin: 04/10/19 06:07 Dose: 8 units Insulin Detemir (Levemir Vial) 25 units SQ BID [facility] Morphine Sulfate (Morphine Sulfate) 2 mg IVPUSH Q4H PRN PRN Reason: PAIN LEVEL 7 - 10 Last Admin: 04/08/19 07:35 Dose: 2 mg Sodium Bicarbonate (Sodium Bicarbonate -) 650 mg PO BID [facility] Last Admin: 04/09/19 21:47 Dose: 650 mg - Objective Vital Signs: Vital Signs Temperature 98.1 F 04/10/19 06:00 Pulse Rate 88 04/10/19 06:00 Respiratory Rate 20 04/10/19 06:00 Blood Pressure 169/85 04/10/19 06:00 O2 Sat by Pulse Oximetry (%) 98 04/09/19 20:54 Constitutional: Yes: Calm, Obese Eyes: Yes: WNL HENT: Yes: WNL Neck: Yes: WNL Cardiovascular: Yes: Regular Rate and Rhythm, S1, S2 Respiratory: Yes: Diminished Gastrointestinal: Yes: Normal Bowel Sounds, Soft Extremities: Yes: WNL Edema: Yes Labs: CBC, BMP 04/10/19 09:30 INR, PTT INR 1.02 (0.83-1.09) 04/07/19 21:28 Problem List - Problems (1) Acute on chronic kidney failure Code(s): N17.9 - ACUTE KIDNEY FAILURE, UNSPECIFIED; N18.9 - CHRONIC KIDNEY DISEASE, UNSPECIFIED Qualifiers: Acute renal failure type: unspecified Chronic kidney disease stage: stage 4 (severe) Qualified Code(s): N17.9 - Acute kidney failure, unspecified; N18.4 - Chronic kidney disease, stage 4 (severe) (2) Urinary tract infection Code(s): N39.0 - URINARY TRACT INFECTION, SITE NOT SPECIFIED Qualifiers: Urinary tract infection type: site unspecified Hematuria presence: without hematuria Qualified Code(s): N39.0 - Urinary tract infection, site not specified (3) Anemia Code(s): D64.9 - ANEMIA, UNSPECIFIED (4) Bladder cancer Code(s): C67.9 - MALIGNANT NEOPLASM OF BLADDER, UNSPECIFIED (5) Chronic kidney disease Code(s): N18.9 - CHRONIC KIDNEY DISEASE, UNSPECIFIED Qualifiers: Chronic kidney disease stage: stage 4 (severe) Qualified Code(s): N18.4 - Chronic kidney disease, stage 4 (severe) (6) H/O total cystectomy Code(s): Z98.89 - OTHER SPECIFIED POSTPROCEDURAL STATES * DO NOT USE * (7) HLD (hyperlipidemia) Code(s): E78.5 - HYPERLIPIDEMIA, UNSPECIFIED (8) Hyperglycemia Code(s): R73.9 - HYPERGLYCEMIA, UNSPECIFIED (9) Hypertension Code(s): I10 - ESSENTIAL (PRIMARY) HYPERTENSION Qualifiers: Hypertension type: essential hypertension Qualified Code(s): I10 - Essential (primary) hypertension (10) Obesity Code(s): E66.9 - OBESITY, UNSPECIFIED Qualifiers: Obesity type: due to excess calories Obesity classification: unspecified obesity classification Serious obesity comorbidity presence: unspecified whether serious comorbidity present Qualified Code(s): E66.09 - Other obesity due to excess calories (11) Pyelitis or pyelonephritis in diseases classified elsewhere Code(s): N16 - RENAL TUBULO-INTERSTITIAL DISORD IN DISEASES CLASSD ELSWHR (12) Sleep apnea Code(s): G47.30 - SLEEP APNEA, UNSPECIFIED Assessment/Plan IMP COPD OSAS NOT ON CPAP MORBID OBESITY R FLANK PAIN PYELONEPHRITIS NEPHROLITHIASIS DM HTN H/O BLADDER CA S/P CYSTECTOMY,ILEAL DIVERSION CKD H/O TIA PLAN ABX PER ID O2 NEEDED INHALED BRONCHODILATORS REPEAT SLEEP SCREEN CONSIDER BARIATRIC SURGERY EVALUATION MONITOR LYTES,RENAL FUNCTION DR RODNEY Problem List - Problems (1) Acute on chronic kidney failure Code(s): N17.9 - ACUTE KIDNEY FAILURE, UNSPECIFIED; N18.9 - CHRONIC KIDNEY DISEASE, UNSPECIFIED Qualifiers: Acute renal failure type: unspecified Chronic kidney disease stage: stage 4 (severe) Qualified Code(s): N17.9 - Acute kidney failure, unspecified; N18.4 - Chronic kidney disease, stage 4 (severe) (2) Urinary tract infection Code(s): N39.0 - URINARY TRACT INFECTION, SITE NOT SPECIFIED Qualifiers: Urinary tract infection type: site unspecified Hematuria presence: without hematuria Qualified Code(s): N39.0 - Urinary tract infection, site not specified (3) Anemia Code(s): D64.9 - ANEMIA, UNSPECIFIED (4) Bladder cancer Code(s): C67.9 - MALIGNANT NEOPLASM OF BLADDER, UNSPECIFIED (5) Chronic kidney disease Code(s): N18.9 - CHRONIC KIDNEY DISEASE, UNSPECIFIED Qualifiers: Chronic kidney disease stage: stage 4 (severe) Qualified Code(s): N18.4 - Chronic kidney disease, stage 4 (severe) (6) H/O total cystectomy Code(s): Z98.89 - OTHER SPECIFIED POSTPROCEDURAL STATES * DO NOT USE * (7) HLD (hyperlipidemia) Code(s): E78.5 - HYPERLIPIDEMIA, UNSPECIFIED (8) Hyperglycemia Code(s): R73.9 - HYPERGLYCEMIA, UNSPECIFIED (9) Hypertension Code(s): I10 - ESSENTIAL (PRIMARY) HYPERTENSION Qualifiers: Hypertension type: essential hypertension Qualified Code(s): I10 - Essential (primary) hypertension (10) Obesity Code(s): E66.9 - OBESITY, UNSPECIFIED Qualifiers: Obesity type: due to excess calories Obesity classification: unspecified obesity classification Serious obesity comorbidity presence: unspecified whether serious comorbidity present Qualified Code(s): E66.09 - Other obesity due to excess calories (11) Pyelitis or pyelonephritis in diseases classified elsewhere Code(s): N16 - RENAL TUBULO-INTERSTITIAL DISORD IN DISEASES CLASSD ELSWHR (12) Sleep apnea Code(s): G47.30 - SLEEP APNEA, UNSPECIFIED
[2019-04-10] MEDS: GABAPENTIN 300 MG CAPSULE (FP) PO SCH (10:06)
[2019-04-10] MEDS: SODIUM BICARBONATE 650 MG TABLET PO SCH ×2 (10:06→21:08)
[2019-04-10] MEDS: DOXAZOSIN MESYLATE 4 MG TABLET PO SCH (10:06)
[2019-04-10] MEDS: ASPIRIN 81 MG CHEWABLE TABLETS PO SCH (10:06)
[2019-04-10] MEDS: hydrALAZINE HCL 10 MG TABLET PO SCH ×2 (10:06→21:07)
[2019-04-10] MEDS: INSULIN (LEVEMIR) 100 UNITS/ML UNITS SQ SCH ×2 (10:06→21:07)
[2019-04-10] MEDS: FUROSEMIDE 20 MG TABLET (FP) PO SCH (10:06)
[2019-04-10] MEDS: BUDESONIDE/FORMETEROL FUMARATE 160/4.5 mcg INHALER IH SCH ×2 (10:07→21:08)
--- NOTE | 2019-04-10 12:25 | PN ---
Progress Note, Physician History of Present Illness: stable doing well - Current Medication List Current Medications: Active Medications Acetaminophen (Tylenol -) 650 mg PO Q6H PRN PRN Reason: FEVER Aspirin (Asa -) 81 mg PO DAILY [facility] Last Admin: 04/10/19 10:06 Dose: 81 mg Atorvastatin Calcium (Lipitor -) 10 mg PO HS [facility] Last Admin: 04/09/19 21:47 Dose: 10 mg Budesonide/Formoterol Fumarate (Symbicort 160/4.5mcg -) 1 puff IH BID [facility] Last Admin: 04/10/19 10:07 Dose: 1 puff Cyclobenzaprine HCl (Flexeril -) 10 mg PO TID [facility] Last Admin: 04/10/19 05:52 Dose: 10 mg Doxazosin Mesylate (Cardura -) 4 mg PO DAILY [facility] Last Admin: 04/10/19 10:06 Dose: 4 mg Furosemide (Lasix -) 60 mg PO DAILY [facility] Last Admin: 04/10/19 10:06 Dose: 60 mg Gabapentin (Neurontin -) 300 mg PO DAILY [facility] Last Admin: 04/10/19 10:06 Dose: 300 mg Heparin Sodium (Porcine) (Heparin -) 5,000 unit SQ TID [facility] Last Admin: 04/10/19 05:53 Dose: 5,000 unit Hydralazine HCl (Apresoline -) 10 mg PO BID [facility] Last Admin: 04/10/19 10:06 Dose: 10 mg Piperacillin Sod/Tazobactam (Sod 2.25 gm/ Dextrose) 50 mls @ 100 mls/hr IVPB Q8H-IV [facility]; Protocol Last Admin: 04/10/19 10:07 Dose: 100 mls/hr Insulin Aspart (Novolog Vial Sliding Scale -) 1 vial SQ ACHS [facility]; Protocol Last Admin: 04/10/19 11:53 Dose: 10 units Insulin Detemir (Levemir Vial) 25 units SQ BID [facility] Last Admin: 04/10/19 10:06 Dose: 25 units Morphine Sulfate (Morphine Sulfate) 2 mg IVPUSH Q4H PRN PRN Reason: PAIN LEVEL 7 - 10 Last Admin: 04/08/19 07:35 Dose: 2 mg Sodium Bicarbonate (Sodium Bicarbonate -) 650 mg PO BID [facility] Last Admin: 04/10/19 10:06 Dose: 650 mg - Objective Vital Signs: Vital Signs Temperature 98 F 04/10/19 09:59 Pulse Rate 86 04/10/19 09:59 Respiratory Rate 18 04/10/19 09:59 Blood Pressure 138/89 04/10/19 09:59 O2 Sat by Pulse Oximetry (%) 98 04/09/19 20:54 Constitutional: Yes: No Distress, Calm, Obese Cardiovascular: Yes: S1, S2 Respiratory: Yes: Regular, CTA Bilaterally Gastrointestinal: Yes: Normal Bowel Sounds, Soft Musculoskeletal: Yes: WNL Extremities: Yes: WNL Neurological: Yes: Alert, Oriented Psychiatric: Yes: Alert, Oriented Labs: CBC, BMP 04/09/19 06:30 04/10/19 09:30 INR, PTT INR 1.02 (0.83-1.09) 04/07/19 21:28 Assessment/Plan copd obesity rt flank pain uti dm htn ckd tia plan continue current mgmt abx monitor rest as per the team
--- NOTE | 2019-04-10 15:24 | PN ---
Progress Note, Physician History of Present Illness: Pt seen and examined at bedside. He is awake and alert. He denies shortness of breath. He feels that the lower ext edema is improving. - Current Medication List Current Medications: Active Medications Acetaminophen (Tylenol -) 650 mg PO Q6H PRN PRN Reason: FEVER Aspirin (Asa -) 81 mg PO DAILY [facility] Last Admin: 04/10/19 10:06 Dose: 81 mg Atorvastatin Calcium (Lipitor -) 10 mg PO HS [facility] Last Admin: 04/09/19 21:47 Dose: 10 mg Budesonide/Formoterol Fumarate (Symbicort 160/4.5mcg -) 1 puff IH BID [facility] Last Admin: 04/10/19 10:07 Dose: 1 puff Cyclobenzaprine HCl (Flexeril -) 10 mg PO TID [facility] Last Admin: 04/10/19 13:01 Dose: 10 mg Doxazosin Mesylate (Cardura -) 4 mg PO DAILY [facility] Last Admin: 04/10/19 10:06 Dose: 4 mg Furosemide (Lasix -) 60 mg PO DAILY [facility] Last Admin: 04/10/19 10:06 Dose: 60 mg Gabapentin (Neurontin -) 300 mg PO DAILY [facility] Last Admin: 04/10/19 10:06 Dose: 300 mg Heparin Sodium (Porcine) (Heparin -) 5,000 unit SQ TID [facility] Last Admin: 04/10/19 13:01 Dose: 5,000 unit Hydralazine HCl (Apresoline -) 10 mg PO BID [facility] Last Admin: 04/10/19 10:06 Dose: 10 mg Piperacillin Sod/Tazobactam (Sod 2.25 gm/ Dextrose) 50 mls @ 100 mls/hr IVPB Q8H-IV [facility]; Protocol Last Admin: 04/10/19 10:07 Dose: 100 mls/hr Insulin Aspart (Novolog Vial Sliding Scale -) 1 vial SQ ACHS [facility]; Protocol Last Admin: 04/10/19 12:58 Dose: 10 units Insulin Detemir (Levemir Vial) 25 units SQ BID [facility] Last Admin: 04/10/19 10:06 Dose: 25 units Morphine Sulfate (Morphine Sulfate) 2 mg IVPUSH Q4H PRN PRN Reason: PAIN LEVEL 7 - 10 Last Admin: 04/08/19 07:35 Dose: 2 mg Sodium Bicarbonate (Sodium Bicarbonate -) 650 mg PO BID [facility] Last Admin: 04/10/19 10:06 Dose: 650 mg - Objective Vital Signs: Vital Signs Temperature 97.9 F 04/10/19 13:20 Pulse Rate 76 04/10/19 13:20 Respiratory Rate 18 04/10/19 13:20 Blood Pressure 159/77 04/10/19 13:20 O2 Sat by Pulse Oximetry (%) 97 04/10/19 09:00 Constitutional: Yes: Calm Eyes: Yes: Conjunctiva Clear HENT: Yes: Atraumatic Neck: Yes: Supple Cardiovascular: Yes: S1, S2 Respiratory: Yes: CTA Bilaterally Gastrointestinal: Yes: Normal Bowel Sounds, Soft Genitourinary: Yes: Other (ileal conduit) Musculoskeletal: Yes: WNL Edema: Yes Edema: LLE: 2+, RLE: 2+ Integumentary: Yes: WNL Neurological: Yes: Oriented Psychiatric: Yes: Oriented Labs: CBC, BMP 04/09/19 06:30 04/10/19 09:30 INR, PTT INR 1.02 (0.83-1.09) 04/07/19 21:28 Problem List - Problems (1) Urinary tract infection Code(s): N39.0 - URINARY TRACT INFECTION, SITE NOT SPECIFIED Qualifiers: Urinary tract infection type: site unspecified Hematuria presence: without hematuria Qualified Code(s): N39.0 - Urinary tract infection, site not specified (2) Chronic kidney disease Code(s): N18.9 - CHRONIC KIDNEY DISEASE, UNSPECIFIED Qualifiers: Chronic kidney disease stage: stage 4 (severe) Qualified Code(s): N18.4 - Chronic kidney disease, stage 4 (severe) Assessment/Plan Current Medications Generic Name Dose Route Start Last Admin Trade Name Freq PRN Reason Stop Dose Admin Acetaminophen 650 mg 04/08/19 04:59 Tylenol - PO Q6H PRN FEVER Aspirin 81 mg 04/09/19 10:15 04/10/19 10:06 Asa - PO 81 mg DAILY [facility] Administration Atorvastatin Calcium 10 mg 04/09/19 22:00 04/09/19 21:47 Lipitor - PO 10 mg HS [facility] Administration Budesonide/Formoterol Fumarate 1 puff 04/09/19 10:15 04/10/19 10:07 Symbicort 160/4.5mcg - IH 1 puff BID [facility] Administration Cyclobenzaprine HCl 10 mg 04/08/19 14:00 04/10/19 13:01 Flexeril - PO 10 mg TID [facility] Administration Doxazosin Mesylate 4 mg 04/09/19 10:45 04/10/19 10:06 Cardura - PO 4 mg DAILY [facility] Administration Furosemide 60 mg 04/10/19 10:00 04/10/19 10:06 Lasix - PO 60 mg DAILY [facility] Administration Gabapentin 300 mg 04/09/19 10:45 04/10/19 10:06 Neurontin - PO 300 mg DAILY [facility] Administration Heparin Sodium (Porcine) 5,000 unit 04/08/19 06:15 04/10/19 13:01 Heparin - SQ 5,000 unit TID [facility] Administration Hydralazine HCl 10 mg 04/09/19 14:00 04/10/19 10:06 Apresoline - PO 10 mg BID [facility] Administration Piperacillin Sod/Tazobactam 50 mls @ 100 mls/hr 04/08/19 14:00 04/10/19 10:07 Sod 2.25 gm/ Dextrose IVPB 100 mls/hr Q8H-IV [facility] Administration Protocol Insulin Aspart 1 vial 04/09/19 10:09 04/10/19 12:58 Novolog Vial Sliding Scale - SQ 10 units ACHS [facility] Administration Protocol Insulin Detemir 25 units 04/10/19 10:00 04/10/19 10:06 Levemir Vial SQ 25 units BID [facility] Administration Morphine Sulfate 2 mg 04/08/19 04:59 04/08/19 07:35 Morphine Sulfate IVPUSH 2 mg Q4H PRN Administration PAIN LEVEL 7 - 10 Sodium Bicarbonate 650 mg 04/09/19 10:15 04/10/19 10:06 Sodium Bicarbonate - PO 650 mg BID [facility] Administration Impression 1. CKD 2. UTI 3. bladder ca with urostomy 4. chf on lasix 5. copd 6. DM Plan - cont lasix - cont bicarb - monitor renal function - monitor bp on hydralazine and titrate up as needed - follow cultures - abx per ID
[2019-04-10] MEDS: ATORVASTATIN CA 10 MG TABLET (FP) PO SCH (21:07)
[2019-04-11] MEDS ORDERED: PIPERACILLIN/TAZOBACTAM 2.25 GM VIAL IVPB ONE ×3 (01:44→16:27)
[2019-04-11] MEDS ORDERED: DEXTROSE 5%-WATER - 50 ML IVPB ONE ×3 (01:44→16:27)
[2019-04-11] MEDS: PIPERACILLIN/TAZOB 2.25 GM 2.25 GM in DEXTROSE 5%-WATER - 50 ML IVPB SCH ×3 (01:55→17:01)
[2019-04-11 05:59] LABS: BASO % 0.5 % (0-2.0); EOS % 5.7 % (0-4.5); HEMATOCRIT 36.9 % (35.4-49); HEMOGLOBIN 12.3 GM/dL (11.7-16.9); MCH 27.9 pg (25.7-33.7); MCHC 33.4 g/dl (32.0-35.9); MEAN CELL VOLUME 83.5 fl (80-96); MEAN PLT VOLUME 8.2 fl (7.5-11.1); MONO % 9.7 % (3.8-10.2); NEUT % 67.1 % (42.8-82.8); PLATELET COUNT 222 K/MM3 (134-434); RBC 4.42 M/mm3 (4.00-5.60); RDW 15.8 % (11.9-15.9); WHITE BLOOD COUNT 6.2 K/mm3 (4.0-10.0)
[2019-04-11] MEDS: INSULIN SLIDING SCALE (NOVOLOG) 1 VIAL SQ SCH ×3 (06:02→17:16)
[2019-04-11] MEDS: HEPARIN NA (PORCINE) 5,000 UNITS/ML 1ML VIAL SQ SCH ×2 (06:02→13:29)
[2019-04-11] MEDS: CYCLOBENZAPRINE HCL 10 MG TABLET (FP) PO SCH ×2 (06:02→13:29)
[2019-04-11 06:26] LABS: ALBUMIN 3.2 g/dl (3.4-5.0); BILIRUBIN,TOTAL 0.3 mg/dL (0.2-1); BLOOD UREA NITROGEN 66.3 mg/dL (7-18); CALCIUM 8.9 mg/dL (8.5-10.1); CREATININE 3.6 mg/dL (0.55-1.3); MAGNESIUM 2.2 mg/dL (1.8-2.4); PHOSPHOROUS 4.1 mg/dL (2.5-4.9); POTASSIUM 4.7 mmol/L (3.5-5.1); TOT PROT 6.5 g/dl (6.4-8.2)
[2019-04-11 07:01] LABS: ERYTHROCYTE SEDIMENTATION RATE 33 mm/hr (0-20)
--- NOTE | 2019-04-11 09:56 | DS ---
Physical Exam: SUBJECTIVE: Patient seen and examined OBJECTIVE: Vital Signs Period Temp Pulse Resp BP Sys/Argueta Pulse Ox Last 24 Hr 97.0 F-98.5 F 75-86 18-20 121-161/62-89 97 PHYSICAL EXAM GENERAL: The patient is awake, alert, and fully oriented, in no acute distress. HEAD: Normal with no signs of trauma. EYES: PERRL, extraocular movements intact, sclera anicteric, conjunctiva clear. ENT: Ears normal, nares patent, oropharynx clear without exudates, moist mucous membranes. NECK: Trachea midline, full range of motion, supple. LUNGS: Breath sounds equal, clear to auscultation bilaterally, no wheezes, no crackles, no accessory muscle use. HEART: Regular rate and rhythm, S1, S2 without murmur, rub or gallop. ABDOMEN: Soft, nontender, nondistended, normoactive bowel sounds, no guarding, no rebound, no hepatosplenomegaly, no masses. EXTREMITIES: 2+ pulses, warm, well-perfused, no edema. NEUROLOGICAL: Cranial nerves II through XII grossly intact. Normal speech, gait not observed. PSYCH: Normal mood, normal affect. SKIN: Warm, dry, normal turgor, no rashes or lesions noted. LABS Laboratory Results - last 24 hr 04/10/19 04/10/19 04/10/19 11:50 12:45 16:56 WBC RBC Hgb Hct MCV MCH MCHC RDW Plt Count MPV Absolute Neuts (auto) Neutrophils % Lymphocytes % Monocytes % Eosinophils % Basophils % Nucleated RBC % ESR Sodium Potassium Chloride Carbon Dioxide Anion Gap BUN Creatinine Est GFR (CKD-EPI)AfAm Est GFR (CKD-EPI)NonAf POC Glucometer 372 338 300 Random Glucose Calcium Phosphorus Magnesium Total Bilirubin AST ALT Alkaline Phosphatase C-Reactive Protein Total Protein Albumin 04/10/19 04/11/19 04/11/19 20:42 05:10 05:10 WBC 6.2 RBC 4.42 Hgb 12.3 Hct 36.9 MCV 83.5 MCH 27.9 MCHC 33.4 RDW 15.8 Plt Count 222 MPV 8.2 Absolute Neuts (auto) 4.1 Neutrophils % 67.1 Lymphocytes % 17.0 D Monocytes % 9.7 Eosinophils % 5.7 H Basophils % 0.5 Nucleated RBC % 0 ESR 33 H Sodium 136 Potassium 4.7 Chloride 109 H Carbon Dioxide 18 L Anion Gap 10 BUN 66.3 H Creatinine 3.6 H Est GFR (CKD-EPI)AfAm 18.70 Est GFR (CKD-EPI)NonAf 16.14 POC Glucometer 320 Random Glucose 284 H Calcium 8.9 Phosphorus 4.1 Magnesium 2.2 Total Bilirubin 0.3 AST 17 ALT 32 Alkaline Phosphatase 75 C-Reactive Protein 2.2 H Total Protein 6.5 Albumin 3.2 L 04/11/19 05:30 WBC RBC Hgb Hct MCV MCH MCHC RDW Plt Count MPV Absolute Neuts (auto) Neutrophils % Lymphocytes % Monocytes % Eosinophils % Basophils % Nucleated RBC % ESR Sodium Potassium Chloride Carbon Dioxide Anion Gap BUN Creatinine Est GFR (CKD-EPI)AfAm Est GFR (CKD-EPI)NonAf POC Glucometer 280 Random Glucose Calcium Phosphorus Magnesium Total Bilirubin AST ALT Alkaline Phosphatase C-Reactive Protein Total Protein Albumin HOSPITAL COURSE: Date of Admission:04/08/19 Date of Discharge: 04/11/19 Discharge Summary Reason For Visit: UTI DUE TO EXTENDED SPECTRUM BETA LACTAMASE (ESBL) Current Active Problems Acute on chronic kidney failure (Acute) Pyelitis or pyelonephritis in diseases classified elsewhere (Acute) Sleep apnea (Acute) Urinary tract infection (Acute) Condition: Stable - Instructions Diet, Activity, Other Instructions: You were in the hospital because of back pain. You need to follow up with your primary doctor, Dr. Howard in 3-5 days. You need to follow up with Dr. Baires in 1 week. You are being sent home with the following medications: Gabapentin 300mg once daily at night Cyclobenzaprine 10 mg three times daily for 3 days If you develop a new rash on your back, or if your develop worsening or new symptoms, call your doctor or come to the emergency department. Referrals: Elizabeth Baires MD [Staff Physician] - 1 Week Umang Howard MD [Primary Care Provider] - 04/11/19 Disposition: HOME - Home Medications Comprehensive Discharge Medication List: Ambulatory Orders Atorvastatin Ca [Lipitor] 10 mg PO DAILY 06/07/17 Cholecalciferol (Vitamin D3) [Vitamin D3] 1,000 unit PO DAILY 06/07/17 Cyanocobalamin [Vitamin B12 -] 1,000 mcg PO DAILY 06/07/17 Doxazosin Mesylate [Cardura -] 4 mg PO DAILY 06/07/17 Furosemide [Lasix -] 40 mg PO DAILY 06/07/17 Multivitamin [One Daily] 1 each PO DAILY 06/07/17 Insulin Detemir [Levemir Flextouch] 50 unit SQ HS 11/05/17 Aspirin 81 mg PO DAILY 06/18/18 Gabapentin 300 mg PO DAILY 06/18/18 Budesonide/Formeterol Fumarate [SYMBICORT 160/4.5mcg -] 1 inh PO BID 11/03/18 Ipratropium/Albuterol Sulfate [Combivent Respimat 20-100 Mcg] 4 gm IH BID Cyclobenzaprine HCl 10 mg PO TID PRN #9 tablet 04/08/19 Insulin (Novolog) [Novolog -] 50 units SQ AM 04/08/19 Sodium Bicarbonate - 650 mg PO BID 04/08/19
[2019-04-11] MEDS: GABAPENTIN 300 MG CAPSULE (FP) PO SCH (10:47)
[2019-04-11] MEDS: DOXAZOSIN MESYLATE 4 MG TABLET PO SCH (10:47)
[2019-04-11] MEDS: hydrALAZINE HCL 10 MG TABLET PO SCH (10:47)
[2019-04-11] MEDS: ASPIRIN 81 MG CHEWABLE TABLETS PO SCH (10:48)
[2019-04-11] MEDS: FUROSEMIDE 20 MG TABLET (FP) PO SCH (10:48)
[2019-04-11] MEDS: SODIUM BICARBONATE 650 MG TABLET PO SCH (10:50)
[2019-04-11] MEDS: INSULIN (LEVEMIR) 100 UNITS/ML UNITS SQ SCH (10:50)
[2019-04-11] MEDS: BUDESONIDE/FORMETEROL FUMARATE 160/4.5 mcg INHALER IH SCH (10:51)
--- NOTE | 2019-04-11 11:14 | PN ---
Progress Note, Physician - Current Medication List Current Medications: Active Medications Acetaminophen (Tylenol -) 650 mg PO Q6H PRN PRN Reason: FEVER Aspirin (Asa -) 81 mg PO DAILY [facility] Last Admin: 04/11/19 10:48 Dose: 81 mg Atorvastatin Calcium (Lipitor -) 10 mg PO HS [facility] Last Admin: 04/10/19 21:07 Dose: 10 mg Budesonide/Formoterol Fumarate (Symbicort 160/4.5mcg -) 1 puff IH BID [facility] Last Admin: 04/11/19 10:51 Dose: 1 puff Cyclobenzaprine HCl (Flexeril -) 10 mg PO TID [facility] Last Admin: 04/11/19 06:02 Dose: 10 mg Doxazosin Mesylate (Cardura -) 4 mg PO DAILY [facility] Last Admin: 04/11/19 10:47 Dose: 4 mg Furosemide (Lasix -) 60 mg PO DAILY [facility] Last Admin: 04/11/19 10:48 Dose: 60 mg Gabapentin (Neurontin -) 300 mg PO DAILY [facility] Last Admin: 04/11/19 10:47 Dose: 300 mg Heparin Sodium (Porcine) (Heparin -) 5,000 unit SQ TID [facility] Last Admin: 04/11/19 06:02 Dose: 5,000 unit Hydralazine HCl (Apresoline -) 10 mg PO BID [facility] Last Admin: 04/11/19 10:47 Dose: 10 mg Piperacillin Sod/Tazobactam (Sod 2.25 gm/ Dextrose) 50 mls @ 100 mls/hr IVPB Q8H-IV [facility]; Protocol Last Admin: 04/11/19 10:51 Dose: 100 mls/hr Insulin Aspart (Novolog Vial Sliding Scale -) 1 vial SQ ACHS [facility]; Protocol Last Admin: 04/11/19 06:02 Dose: 8 units Insulin Detemir (Levemir Vial) 25 units SQ BID [facility] Last Admin: 04/11/19 10:50 Dose: 25 units Morphine Sulfate (Morphine Sulfate) 2 mg IVPUSH Q4H PRN PRN Reason: PAIN LEVEL 7 - 10 Last Admin: 04/08/19 07:35 Dose: 2 mg Sodium Bicarbonate (Sodium Bicarbonate -) 650 mg PO BID [facility] Last Admin: 04/11/19 10:50 Dose: 650 mg - Objective Vital Signs: Vital Signs Temperature 98.0 F 04/11/19 08:45 Pulse Rate 83 04/11/19 08:45 Respiratory Rate 18 04/11/19 08:45 Blood Pressure 130/62 04/11/19 08:45 O2 Sat by Pulse Oximetry (%) 97 04/10/19 21:00 Labs: CBC, BMP 04/11/19 05:10 04/11/19 05:10 INR, PTT INR 1.02 (0.83-1.09) 04/07/19 21:28 Problem List - Problems (1) Acute on chronic kidney failure Code(s): N17.9 - ACUTE KIDNEY FAILURE, UNSPECIFIED; N18.9 - CHRONIC KIDNEY DISEASE, UNSPECIFIED Qualifiers: Acute renal failure type: unspecified Chronic kidney disease stage: stage 4 (severe) Qualified Code(s): N17.9 - Acute kidney failure, unspecified; N18.4 - Chronic kidney disease, stage 4 (severe) (2) Urinary tract infection Code(s): N39.0 - URINARY TRACT INFECTION, SITE NOT SPECIFIED Qualifiers: Urinary tract infection type: site unspecified Hematuria presence: without hematuria Qualified Code(s): N39.0 - Urinary tract infection, site not specified (3) Anemia Code(s): D64.9 - ANEMIA, UNSPECIFIED (4) Bladder cancer Code(s): C67.9 - MALIGNANT NEOPLASM OF BLADDER, UNSPECIFIED (5) Chronic kidney disease Code(s): N18.9 - CHRONIC KIDNEY DISEASE, UNSPECIFIED Qualifiers: Chronic kidney disease stage: stage 4 (severe) Qualified Code(s): N18.4 - Chronic kidney disease, stage 4 (severe) (6) H/O total cystectomy Code(s): Z98.89 - OTHER SPECIFIED POSTPROCEDURAL STATES * DO NOT USE * (7) HLD (hyperlipidemia) Code(s): E78.5 - HYPERLIPIDEMIA, UNSPECIFIED (8) Hyperglycemia Code(s): R73.9 - HYPERGLYCEMIA, UNSPECIFIED (9) Hypertension Code(s): I10 - ESSENTIAL (PRIMARY) HYPERTENSION Qualifiers: Hypertension type: essential hypertension Qualified Code(s): I10 - Essential (primary) hypertension (10) Obesity Code(s): E66.9 - OBESITY, UNSPECIFIED Qualifiers: Obesity type: due to excess calories Obesity classification: unspecified obesity classification Serious obesity comorbidity presence: unspecified whether serious comorbidity present Qualified Code(s): E66.09 - Other obesity due to excess calories (11) Pyelitis or pyelonephritis in diseases classified elsewhere Code(s): N16 - RENAL TUBULO-INTERSTITIAL DISORD IN DISEASES CLASSD ELSWHR (12) Sleep apnea Code(s): G47.30 - SLEEP APNEA, UNSPECIFIED Assessment/Plan IMP COPD OSAS NOT ON CPAP MORBID OBESITY R FLANK PAIN PYELONEPHRITIS NEPHROLITHIASIS DM HTN H/O BLADDER CA S/P CYSTECTOMY,ILEAL DIVERSION CKD H/O TIA PLAN ABX PER ID O2 NEEDED INHALED BRONCHODILATORS REPEAT SLEEP SCREEN CONSIDER BARIATRIC SURGERY EVALUATION MONITOR LYTES,RENAL FUNCTION DR RODNEY Problem List - Problems (1) Acute on chronic kidney failure Code(s): N17.9 - ACUTE KIDNEY FAILURE, UNSPECIFIED; N18.9 - CHRONIC KIDNEY DISEASE, UNSPECIFIED Qualifiers: Acute renal failure type: unspecified Chronic kidney disease stage: stage 4 (severe) Qualified Code(s): N17.9 - Acute kidney failure, unspecified; N18.4 - Chronic kidney disease, stage 4 (severe) (2) Urinary tract infection Code(s): N39.0 - URINARY TRACT INFECTION, SITE NOT SPECIFIED Qualifiers: Urinary tract infection type: site unspecified Hematuria presence: without hematuria Qualified Code(s): N39.0 - Urinary tract infection, site not specified (3) Anemia Code(s): D64.9 - ANEMIA, UNSPECIFIED (4) Bladder cancer Code(s): C67.9 - MALIGNANT NEOPLASM OF BLADDER, UNSPECIFIED (5) Chronic kidney disease Code(s): N18.9 - CHRONIC KIDNEY DISEASE, UNSPECIFIED Qualifiers: Chronic kidney disease stage: stage 4 (severe) Qualified Code(s): N18.4 - Chronic kidney disease, stage 4 (severe) (6) H/O total cystectomy Code(s): Z98.89 - OTHER SPECIFIED POSTPROCEDURAL STATES * DO NOT USE * (7) HLD (hyperlipidemia) Code(s): E78.5 - HYPERLIPIDEMIA, UNSPECIFIED (8) Hyperglycemia Code(s): R73.9 - HYPERGLYCEMIA, UNSPECIFIED (9) Hypertension Code(s): I10 - ESSENTIAL (PRIMARY) HYPERTENSION Qualifiers: Hypertension type: essential hypertension Qualified Code(s): I10 - Essential (primary) hypertension (10) Obesity Code(s): E66.9 - OBESITY, UNSPECIFIED Qualifiers: Obesity type: due to excess calories Obesity classification: unspecified obesity classification Serious obesity comorbidity presence: unspecified whether serious comorbidity present Qualified Code(s): E66.09 - Other obesity due to excess calories (11) Pyelitis or pyelonephritis in diseases classified elsewhere Code(s): N16 - RENAL TUBULO-INTERSTITIAL DISORD IN DISEASES CLASSD ELSWHR (12) Sleep apnea Code(s): G47.30 - SLEEP APNEA, UNSPECIFIED
--- NOTE | 2019-04-11 12:21 | PN ---
Progress Note (short form) - Note Progress Note: Renal follow up for CKD Seen and examined at the bedside awake and alert feels better, flank pain now resolved no fever, chills denies any sob, cp, abd pain making clear urine Vital Signs Temperature 98.0 F 04/11/19 08:45 Pulse Rate 83 04/11/19 08:45 Respiratory Rate 18 04/11/19 08:45 Blood Pressure 130/62 04/11/19 08:45 O2 Sat by Pulse Oximetry (%) 97 04/10/19 21:00 Intake & Output 04/08/19 04/09/19 04/10/19 04/11/19 23:59 23:59 23:59 23:59 Intake Total 190 990 420 550 Output Total 500 3100 3300 800 Balance -310 -0600 -2880 -250 Weight 136.758 kg 134.445 kg 132.993 kg NAD awake and alert RRR CTA soft NT/ND + edema in LE CBC, BMP 04/11/19 05:10 04/11/19 05:10 Current Medications Acetaminophen (Tylenol -) 650 mg PO Q6H PRN PRN Reason: FEVER Aspirin (Asa -) 81 mg PO DAILY [facility] Last Admin: 04/11/19 10:48 Dose: 81 mg Atorvastatin Calcium (Lipitor -) 10 mg PO HS [facility] Last Admin: 04/10/19 21:07 Dose: 10 mg Budesonide/Formoterol Fumarate (Symbicort 160/4.5mcg -) 1 puff IH BID [facility] Last Admin: 04/11/19 10:51 Dose: 1 puff Cyclobenzaprine HCl (Flexeril -) 10 mg PO TID [facility] Last Admin: 04/11/19 06:02 Dose: 10 mg Doxazosin Mesylate (Cardura -) 4 mg PO DAILY [facility] Last Admin: 04/11/19 10:47 Dose: 4 mg Furosemide (Lasix -) 60 mg PO DAILY [facility] Last Admin: 04/11/19 10:48 Dose: 60 mg Gabapentin (Neurontin -) 300 mg PO DAILY [facility] Last Admin: 04/11/19 10:47 Dose: 300 mg Heparin Sodium (Porcine) (Heparin -) 5,000 unit SQ TID [facility] Last Admin: 04/11/19 06:02 Dose: 5,000 unit Hydralazine HCl (Apresoline -) 10 mg PO BID [facility] Last Admin: 04/11/19 10:47 Dose: 10 mg Piperacillin Sod/Tazobactam (Sod 2.25 gm/ Dextrose) 50 mls @ 100 mls/hr IVPB Q8H-IV [facility]; Protocol Last Admin: 04/11/19 10:51 Dose: 100 mls/hr Insulin Aspart (Novolog Vial Sliding Scale -) 1 vial SQ ACHS [facility]; Protocol Last Admin: 04/11/19 11:51 Dose: 10 units Insulin Detemir (Levemir Vial) 25 units SQ BID [facility] Last Admin: 04/11/19 10:50 Dose: 25 units Morphine Sulfate (Morphine Sulfate) 2 mg IVPUSH Q4H PRN PRN Reason: PAIN LEVEL 7 - 10 Last Admin: 04/08/19 07:35 Dose: 2 mg Sodium Bicarbonate (Sodium Bicarbonate -) 650 mg PO BID [facility] Last Admin: 04/11/19 10:50 Dose: 650 mg 68 year old male with pmhx of htn, DM, CHF, TIA, bladder ca s/p cystectomy and urostomy, and CKD presented with flank pain and admitted for UTI. 1. CKD stage 4 2. Complicated UTI 3. Chronic metabolic acidosis 4. Edema/fluid overload Renal function up from baseline but stable. No acute need for dialysis. Continue antibiotics as per primary team for complicated UTI. Increase sodium bicab to 650mg TID. Will give extra dose of Lasix 60mg this afternoon as edema is pronounced Thank you Freddie Forbes DO
[2019-04-11 13:42] VITALS: BP 140/93; PULSE 84; TEMP 97.9
[2019-04-11] MEDS ORDERED: SODIUM BICARBONATE 650 MG TABLET PO SCH (14:00)
[2019-04-11] MEDS ORDERED: FUROSEMIDE 20 MG TABLET (FP) PO ONE (14:00)
--- NOTE | 2019-04-11 15:10 | CONSULT ---
Consult - text type - Consultation Consultation Note: Asked to see this pleasant, 68 y.o. gentleman admitted for right flank pain. Pt with history of DM,COPD, Sleep Apnea, Renal insufficiency, and Bladder cancer with subsequent cystectomy and diverting urinary ileosomy. Pt states pain now resolved, sitting OOB in chair. I explained to pt that I was consulted to discuss option of Bariatric Surgery with pt. pt understood and was sgreeable P/E- Abd- + obesity umbilical hernia noted and reducible right diverting urinary ileostomy noted adjacent to umbilicus ileostomy pink in color I- Morbid Obesity DM COPD Sleep Apnea Diverting urinary ileostomy secondary to Bladder Cancer Chronic Renal Dysfunction Rec- Pt to be discharged today I explained to pt that because of proximity of diverting urinary ileostomy to umbilicus, Bariatric surgery would represent a significant risk to the function and viability of the urinary ileostomy. The pt mentioned that a previous surgeon exressed similar sentiments when consulte regarding umbilical hernia repair. Thank you for the opportunity to consult on this patient.
--- NOTE | 2019-04-12 10:10 | PN ---
Progress Note, Physician History of Present Illness: stable no new issues minimal pain - Objective Vital Signs: Vital Signs Temperature 97.9 F 04/11/19 13:41 Pulse Rate 84 04/11/19 13:41 Respiratory Rate 16 04/11/19 13:41 Blood Pressure 140/93 04/11/19 13:41 O2 Sat by Pulse Oximetry (%) 98 04/11/19 09:00 Constitutional: Yes: No Distress, Calm Cardiovascular: Yes: S1, S2 Respiratory: Yes: Regular, CTA Bilaterally Gastrointestinal: Yes: Normal Bowel Sounds, Soft, Other Genitourinary: Yes: Other Extremities: Yes: WNL Neurological: Yes: Alert, Oriented Psychiatric: Yes: Alert, Oriented Labs: CBC, BMP 04/11/19 05:10 04/11/19 05:10 INR, PTT INR 1.02 (0.83-1.09) 04/07/19 21:28 Assessment/Plan copd obesity rt flank pain uti dm htn ckd tia plan continue current mgmt can change to levaquin d/w he team res as per the team
== END 2019-04-11 18:34 | disposition home or self-care (01) | DRG 690 ==
LOC: JER 20:53 → JERBED 04-08 04:23 → J4S 04-08 18:05
PROVIDERS: ADMIT Internal Medicine; ATTEND Internal Medicine
DX: N10 Acute pyelonephritis (principal); I13.0 Hypertensive heart and chronic kidney disease with heart failure and stage 1 through stage 4 chronic kidney disease, or unspecified chronic kidney disease; I13.2 Hypertensive heart and chronic kidney disease with heart failure and with stage 5 chronic kidney disease, or end stage renal disease; Z68.42 Body mass index [BMI] 45.0-49.9, adult; E87.2 Acidosis; N18.6 End stage renal disease; J44.9 Chronic obstructive pulmonary disease, unspecified; Z85.51 Personal history of malignant neoplasm of bladder; E11.22 Type 2 diabetes mellitus with diabetic chronic kidney disease; I50.9 Heart failure, unspecified; Z86.73 Personal history of transient ischemic attack (TIA), and cerebral infarction without residual deficits; Z79.4 Long term (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 of insulin; Z87.891 Personal history of nicotine dependence; E11.65 Type 2 diabetes mellitus with hyperglycemia; E66.01 Morbid (severe) obesity due to excess calories; G47.33 Obstructive sleep apnea (adult) (pediatric); E78.5 Hyperlipidemia, unspecified; D64.9 Anemia, unspecified; N17.9 Acute kidney failure, unspecified
CPT/HCPCS: 36415; 71045-TC-FY; 74176-TC; 80048; 80053; 80069; 81003; 82962; 83735; 84100; 85025; 85027; 85610; 85651; 86140; 87086; 87186; 93005; 93010; 97116-GP; 97161-GP; 99284-25; J0131; J1644

== ENCOUNTER 2019-07-18 08:04 | Inpatient (IN) | payer OTHER ==
[2019-07-18] MEDS ORDERED: SODIUM CHLORIDE 1,000 ML IV STA ×2 (09:03→10:30)
[2019-07-18] MEDS ORDERED: ACETAMINOPHEN 1000 MG/100 ML VIAL (NON FORMULARY) IVPB ONE (09:03)
[2019-07-18] MEDS ORDERED: ACETAMINOPHEN INJECTION 100 ML IVPB ONE (09:12)
[2019-07-18 10:07] LABS: BASO % 0.2 % (0-2.0); EOS % 1.7 % (0-4.5); HEMATOCRIT 33.8 % (35.4-49); HEMOGLOBIN 11.1 GM/dL (11.7-16.9); LYMPH % 4.1 % (8-40); MCH 27.1 pg (25.7-33.7); MCHC 32.9 g/dl (32.0-35.9); MEAN CELL VOLUME 82.6 fl (80-96); MEAN PLT VOLUME 8.4 fl (7.5-11.1); MONO % 7.3 % (3.8-10.2); NEUT % 86.7 % (42.8-82.8); PLATELET COUNT 190 K/MM3 (134-434); RBC 4.09 M/mm3 (4.00-5.60); RDW 15.9 % (11.9-15.9); WHITE BLOOD COUNT 13.6 K/mm3 (4.0-10.0)
[2019-07-18 10:12] LABS: VENOUS PC02 27.9 mmHg (38-52); VENOUS PO2 64.5 mmHg (28-48)
--- NOTE | 2019-07-18 10:12 | PDOC ---
History of Present Illness - General Chief Complaint: Rash Stated Complaint: LT. HIP RASH Time Seen by Provider: 07/18/19 08:48 History Source: Patient Exam Limitations: No Limitations - History of Present Illness Initial Comments: 07/18/19 09:07 68-year-old male presents to the emergency room with complaints of Pain to his left buttock for the past 3 days worsening in severity causing him difficulty sitting. Patient states no recent constipation or diarrhea but states has mild weakness. Patient states is also a diabetic and BGM yesterday was 190. Patient also with urostomy bag secondary to bladder CA. Patient denies any drainage but states area is tender to touch and feels a bump Is this a multiple visit Asthma Patient?: No Timing/Duration: getting worse Severity: moderate Associated Symptoms: reports: weakness Past History - Travel Traveled outside of the country in the last 30 days: No Close contact w/someone who was outside of country & ill: No - Past Medical History Allergies/Adverse Reactions: Allergies Allergy/AdvReac Type Severity Reaction Status Date / Time shrimp Allergy Intermediate Vomiting Verified 07/18/19 08:18 Home Medications: Ambulatory Orders Atorvastatin Ca [Lipitor] 10 mg PO DAILY 06/07/17 Cholecalciferol (Vitamin D3) [Vitamin D3] 1,000 unit PO DAILY 06/07/17 Cyanocobalamin [Vitamin B12 -] 1,000 mcg PO DAILY 06/07/17 Doxazosin Mesylate [Cardura -] 4 mg PO DAILY 06/07/17 Multivitamin [One Daily] 1 each PO DAILY 06/07/17 Insulin Detemir [Levemir Flextouch] 50 unit SQ HS 11/05/17 Aspirin 81 mg PO DAILY 06/18/18 Gabapentin 300 mg PO DAILY 06/18/18 Budesonide/Formeterol Fumarate [SYMBICORT 160/4.5mcg -] 1 inh PO BID 11/03/18 Ipratropium/Albuterol Sulfate [Combivent Respimat 20-100 Mcg] 4 gm IH BID Cyclobenzaprine HCl 10 mg PO TID PRN #9 tablet 04/08/19 Insulin (Novolog) [Novolog -] 50 units SQ AM 04/08/19 Sodium Bicarbonate - 650 mg PO BID 04/08/19 Furosemide 80 mg PO DAILY 30 Days #30 tablet 04/11/19 hydrALAZINE HCL [Apresoline -] 10 mg PO BID 30 Days tablet 04/11/19 levoFLOXacin [Levaquin -] 250 mg PO Q48H #5 tablet 04/11/19 Anemia: No Asthma: No Cancer: Yes (BLADDER CA W/REMOVAL AND UROSTOMY) Cardiac Disorders: No ([facility]) CVA: Yes (2013) COPD: Yes CHF: No Dementia: No Diabetes: Yes Dialysis: No GI Disorders: No Disorders: Yes HTN: Yes Hypercholesterolemia: Yes Liver Disease: No Seizures: No Thyroid Disease: No - Surgical History Abdominal Surgery: Yes (BLADDER REMOVED 05/2014 -UROSTOMY) Appendectomy: No Cardiac Surgery: No Cholecystectomy: No Lung Surgery: No Neurologic Surgery: No Orthopedic Surgery: Yes (left knee sx) - Immunization History Immunization Up to Date: Yes (FLU AND PNA UP TO DATE) - Psycho Social/Smoking Cessation Hx Smoking Status: No Smoking History: Never smoked Have you smoked in the past 12 months: No If you are a former smoker, when did you quit?: "years ago" Hx Alcohol Use: No Drug/Substance Use Hx: No Substance Use Type: None Hx Substance Use Treatment: No Patient Lives Alone: Yes Lives with/in: lives alone Review of Systems - Review of Systems Able to Perform ROS?: No Is the patient limited Maltese proficient: No Constitutional: Yes: Weakness HEENTM: No: Symptoms Reported Respiratory: No: Symptoms reported Cardiac (ROS): No: Symptoms Reported ABD/GI: No: Symptoms Reported : No: Symptoms Reported Musculoskeletal: Yes: Muscle Pain (left buttock) Integumentary: Yes: Lumps Neurological: No: Symptoms reported Endocrine: No: Symptoms Reported Hematologic/Lymphatic: No: Symptoms Reported *Physical Exam - Vital Signs Last Vital Signs Temp Pulse Resp BP Pulse Ox 98.0 F 114 H 16 105/61 100 07/18/19 08:08 07/18/19 08:08 07/18/19 08:08 07/18/19 08:08 07/18/19 08:08 - Physical Exam General Appearance: Yes: Nourished, Appropriately Dressed. No: Apparent Distress HEENT: negative: Pale Conjunctivae Respiratory/Chest: positive: Lungs Clear, Normal Breath Sounds. negative: Respiratory Distress, Accessory Muscle Use Cardiovascular: positive: Regular Rhythm, Tachycardia. negative: Murmur Gastrointestinal/Abdominal: positive: Soft. negative: Tenderness Rectal Exam: positive: other (Noted tender warm to touch firm mass measuring approximately 4 cm in diameter with no drainage to the left lateral aspect of rectum anus) Extremity: positive: Normal Inspection Integumentary: positive: Other Neurologic: positive: Motor Strength 5/5 (Ambulatory with cane) Heart Score/ECG Review - ECG Intrepretation Rhythm: Regular Rhythm (sinus rhythm with occas premature ventricular complexes) ED Treatment Course - LABORATORY CBC & Chemistry Diagram: 07/18/19 09:25 07/18/19 09:25 - RADIOLOGY Radiology Studies Ordered: Category Date Time Status PELVIS CT WITHOUT CONTRAST [CT] Stat CT Scan 07/18/19 09:04 Ordered Medical Decision Making - Medical Decision Making 07/18/19 09:43 Chief complaint: Patient with painful left buttock abscess for the past 2 days worsening in severity. Patient states BGM 190. Patient with history of bladder CA but denies any other complaints exam: Tachycardic tender left buttock abscess Plan: septic work-up with CT of the pelvis to rule out perirectal involvement patient also had a prescription ordered by Dr. Snider for CT of the chest without contrast. 07/18/19 10:44 Laboratory Tests 04/10/19 04/11/19 06/06/19 09:30 05:10 09:45 WBC Hgb Hct Plt Count Absolute Neuts (auto) Neutrophils % Lymphocytes % VBG pH POC VBG pCO2 POC VBG pO2 VBG HCO3 VBG O2 Sat (Meredith) VBG Base Excess Sodium Potassium Chloride Carbon Dioxide Anion Gap BUN Creatinine 3.4 H 3.6 H 2.5 H Random Glucose Calcium Total Bilirubin AST ALT Alkaline Phosphatase Total Protein Albumin 07/18/19 07/18/19 07/18/19 09:25 09:25 09:25 WBC 13.6 H Hgb 11.1 L Hct 33.8 L Plt Count 190 D Absolute Neuts (auto) 11.8 H Neutrophils % 86.7 H Lymphocytes % 4.1 L D VBG pH 7.15 L* POC VBG pCO2 27.9 L POC VBG pO2 64.5 H VBG HCO3 9.3 L VBG O2 Sat (Meredith) 88.6 H VBG Base Excess -18.3 L Sodium 138 Potassium 4.2 Chloride 117 H Carbon Dioxide 10 L Anion Gap 11 BUN Pending Creatinine 5.3 H Random Glucose 245 H Calcium 8.7 Total Bilirubin 0.4 AST 15 ALT 25 Alkaline Phosphatase 77 Total Protein 6.9 Albumin 3.2 L VBG demonstrates patient is acidotic. Second liter of fluid ordered. Elevated creatinine. Lactic acid pending 07/18/19 10:44 07/18/19 10:50 Laboratory Tests 07/18/19 09:25 BUN 122.4 H* Pt ordered for vanco/zosyn Discharge - Discharge Information Problems reviewed: Yes Clinical Impression/Diagnosis: Acute renal insufficiency, Abscess of buttock, left, Acidosis - Admission Yes - Follow up/Referral - Patient Discharge Instructions - Post Discharge Activity
[2019-07-18 10:29] LABS: VENOUS PH 7.15 (7.31-7.41)
[2019-07-18 10:36] LABS: ALBUMIN 3.2 g/dl (3.4-5.0); BILIRUBIN,TOTAL 0.4 mg/dL (0.2-1); CALCIUM 8.7 mg/dL (8.5-10.1); CREATININE 5.3 mg/dL (0.55-1.3); POTASSIUM 4.2 mmol/L (3.5-5.1); TOT PROT 6.9 g/dl (6.4-8.2)
[2019-07-18 10:47] LABS: BLOOD UREA NITROGEN 122.4 mg/dL (7-18)
[2019-07-18] MEDS ORDERED: VANCOMYCIN 1 GM in D5W (PRE-DOCKED) 1,000 MG/250 ML IVPB ONE (10:49)
[2019-07-18] MEDS ORDERED: PIPERACILLIN/TAZOB 3.375 GM 3.375 GM in DEXTROSE 5%-WATER - 50 ML IVPB ONE (10:49)
--- NOTE | 2019-07-18 11:00 | EKG ---
Test Reason : Blood Pressure : / mmHG Vent. Rate : 095 BPM Atrial Rate : 095 BPM P-R Int : 202 ms QRS Dur : 106 ms QT Int : 368 ms P-R-T Axes : 028 -52 074 degrees QTc Int : 462 ms SINUS RHYTHM WITH OCCASIONAL PREMATURE VENTRICULAR COMPLEXES LEFT AXIS DEVIATION VOLTAGE CRITERIA FOR LEFT VENTRICULAR HYPERTROPHY ABNORMAL ECG WHEN COMPARED WITH ECG OF 08-APR-2019 08:51, PREMATURE VENTRICULAR COMPLEXES ARE NOW PRESENT NON-SPECIFIC CHANGE IN ST SEGMENT IN LATERAL LEADS T WAVE INVERSION NO LONGER EVIDENT IN INFERIOR LEADS T WAVE INVERSION NOW EVIDENT IN LATERAL LEADS Confirmed by GIGI MORALES MD ([id number]) on 07/18/2019 11:00:01 AM Referred By: Confirmed By:GIGI MORALES MD
[2019-07-18] MEDS ORDERED: PIPERACILLIN/TAZOB 3.375 GM 3.375 GM/50 ML BAG IVPB ONE (11:34)
--- NOTE | 2019-07-18 11:58 | PDOC ---
*Physical Exam - Vital Signs Last Vital Signs Temp Pulse Resp BP Pulse Ox 98.0 F 114 H 16 105/61 100 07/18/19 08:08 07/18/19 08:08 07/18/19 08:08 07/18/19 08:08 07/18/19 08:08 - Physical Exam 07/18/19 11:56 Afebrile, slight tachycardia Abdomen soft/nondistended. Urostomy bag in place. Buttock abscess as outlined. Heart Score/ECG Review #1 ECG reviewed & interpreted by me at: 09:14 General ECG Interpretation: Sinus Rhythm (single PVC noted), Normal Rate (95), Normal Intervals (qtc 462, LVH, LAFB), No acute ischemic changes (TWI I/AVL) ED Treatment Course - LABORATORY CBC & Chemistry Diagram: 07/24/19 06:25 07/24/19 06:00 - ADDITIONAL ORDERS Additional order review: Laboratory Results 07/18/19 07/18/19 07/18/19 09:25 09:25 09:25 VBG pH 7.15 L* POC VBG pCO2 27.9 L POC VBG pO2 64.5 H VBG HCO3 9.3 L VBG O2 Sat (Meredith) 88.6 H VBG Base Excess -18.3 L Sodium 138 Potassium 4.2 Chloride 117 H Carbon Dioxide 10 L Anion Gap 11 BUN 122.4 H* Creatinine 5.3 H Est GFR (CKD-EPI)AfAm 11.72 Est GFR (CKD-EPI)NonAf 10.11 Random Glucose 245 H Lactic Acid 1.0 Calcium 8.7 Total Bilirubin 0.4 AST 15 ALT 25 Alkaline Phosphatase 77 Total Protein 6.9 Albumin 3.2 L 07/18/19 09:25 RBC 4.09 MCV 82.6 MCHC 32.9 RDW 15.9 MPV 8.4 Neutrophils % 86.7 H Lymphocytes % 4.1 L D Monocytes % 7.3 Eosinophils % 1.7 Basophils % 0.2 - Medications Given in the ED: ED Medications Discontinued Medications Generic Name Dose Route Start Last Admin Trade Name Freq PRN Reason Stop Dose Admin Acetaminophen 1,000 mg 07/18/19 09:03 07/18/19 09:15 Ofirmev Injection - IVPB 07/18/19 09:04 1,000 mg ONCE ONE Administration Sodium Chloride 1,000 mls @ 1,000 mls/hr 07/18/19 09:03 07/18/19 09:15 Normal Saline - IV 07/18/19 10:02 1,000 mls/hr ASDIR STA Administration Sodium Chloride 1,000 mls @ 1,000 mls/hr 07/18/19 10:30 07/18/19 10:42 Normal Saline - IV 07/18/19 11:29 1,000 mls/hr ASDIR STA Administration Medical Decision Making - Critical Care Time Total Critical Care Time (minutes): 40 Critical Care Statement: The care of this patient involved high complexity decision making to prevent further life threatening deterioration of the patient 's condition and/or to evaluate & treat vital organ system(s) failure or risk of failure. - Medical Decision Making 07/18/19 11:56 Patient seen and evaluated with the nurse practitioner. I agree with the overall evaluation, assessment, and management with the following summary of visit: 68-year-old male with history of bladder CA status post urostomy, diabetes, baseline renal insufficiency presents for evaluation of buttock abscess, hyperglycemia at home. DKA protocol initiated, revealed acidemia with acute on chronic renal failure and uremia Imaging of abscess, will require drainage Cultures sent, IV antibiotics Admission Discharge - Discharge Information Problems reviewed: Yes Clinical Impression/Diagnosis: Acute renal insufficiency, Abscess of buttock, left, Acidosis - Follow up/Referral - Patient Discharge Instructions - Post Discharge Activity
[2019-07-18] MEDS ORDERED: VANCOMYCIN 1 GRAM (PRE-DOCKED) 1,000 MG/250 ML BAG IVPB ONE (12:33)
[2019-07-18] MEDS ORDERED: ALBUTEROL SO4 2.5/IPRATROPIUM 0.5 INH SOL 3 ML VIAL.NEB. NEB PRN (15:19)
--- NOTE | 2019-07-18 15:35 | CONSULT ---
Consult - text type - Consultation Consultation Note: Renal consult for MEKA on CKD This is a 68 year old gentleman with history of CKD stage 4, urethral diverison with ileual conduit, COPD, hypertension, hyperlipideima who presented from home with perirectal abcess with MEKA on CKD. Seen and examined in the ER. Awake and alert. Reports having pain in his buttock for the past 3 days. Denies any fevers. Reports normal oral intake. No N/V. Reports decreased output from his ostomy. No chest pain, shortness of breath, abdominal pain. No skin rash. Last saw Dr. Kirkland in the office about 1 month ago. Cr 1 month ago was 2.5. PMhx: as per HPI Family hx: NC Social Hx: No T/A/D ROS: as per HPI, all other pertinent ros negative Home Medications Medication Instructions Recorded Atorvastatin Ca [Lipitor] 10 mg PO DAILY 06/07/17 Cholecalciferol (Vitamin D3) 1,000 unit PO DAILY 06/07/17 [Vitamin D3] Cyanocobalamin [Vitamin B12 -] 1,000 mcg PO DAILY 06/07/17 Doxazosin Mesylate [Cardura -] 4 mg PO DAILY 06/07/17 Multivitamin [One Daily] 1 each PO DAILY 06/07/17 Insulin Detemir [Levemir Flextouch] 50 unit SQ HS 11/05/17 Aspirin 81 mg PO DAILY 06/18/18 Gabapentin 300 mg PO DAILY 06/18/18 Budesonide/Formeterol Fumarate 1 inh PO BID 11/03/18 [SYMBICORT 160/4.5mcg -] Ipratropium/Albuterol Sulfate 4 gm IH BID 11/03/18 [Combivent Respimat 20-100 Mcg] Cyclobenzaprine HCl 10 mg PO TID PRN #9 tablet 04/08/19 Insulin (Novolog) [Novolog -] 50 units SQ AM 04/08/19 Sodium Bicarbonate - 650 mg PO BID 04/08/19 Furosemide 80 mg PO DAILY 30 Days #30 tablet 04/11/19 hydrALAZINE HCL [Apresoline -] 10 mg PO BID 30 Days tablet 04/11/19 levoFLOXacin [Levaquin -] 250 mg PO Q48H #5 tablet 04/11/19 Vital Signs Temperature 98.0 F 07/18/19 08:08 Pulse Rate 114 H 12/30/19 08:08 Respiratory Rate 16 07/18/19 08:08 Blood Pressure 105/61 07/18/19 08:08 O2 Sat by Pulse Oximetry (%) 100 07/18/19 08:08 Intake & Output 07/15/19 07/16/19 07/17/19 07/18/19 23:59 23:59 23:59 23:59 Weight 134.263 kg NAD awake and alert neck supple RRR CTA no rales or wheeze soft, obese, NT/ND + trace to mild edema in LE no CVA tenderness CBC, BMP 07/18/19 09:25 07/18/19 09:25 Current Medications Albuterol/Ipratropium (Duoneb -) 1 amp NEB Q6H PRN PRN Reason: SHORTNESS OF BREATH Aspirin (Ecotrin -) 81 mg PO DAILY [facility] Atorvastatin Calcium (Lipitor -) 10 mg PO HS [facility] Budesonide/Formoterol Fumarate (Symbicort 160/4.5mcg -) 1 puff IH BID [facility] Cholecalciferol (Vitamin D3 -) 1,000 unit PO DAILY [facility] Cyanocobalamin (Vitamin B12 -) 1,000 mcg PO DAILY [facility] Doxazosin Mesylate (Cardura -) 4 mg PO DAILY [facility] Gabapentin (Neurontin -) 300 mg PO DAILY [facility] Heparin Sodium (Porcine) (Heparin -) 5,000 unit SQ TID [facility] Hydralazine HCl (Apresoline -) 10 mg PO BID [facility] Sodium Bicarbonate 150 meq/ (Dextrose) 1,150 mls @ 100 mls/hr IV .Q10H [facility] Insulin Aspart (Novolog) 25 units SQ BID@0700,1630 [facility] Insulin Detemir (Levemir Vial) 30 units SQ HS [facility] 68 year old gentleman with history of CKD stage 4, urethral diverison with ileual conduit, COPD, hypertension, hyperlipideima who presented from home with perirectal abcess with MEKA on CKD. 1. Acute on chronic renal insufficiency 2. CKD stage 4 3. Acute on Chronic metabolic acidosis 4. Anemia 5. Perirectal abcess Suspect that acute kidney injury likely volume depletion in setting of sepsis and volume depeltion Check urine studies for FeNa, FeUrea, UA s/p 2L of IVF in the ER. Start D5W with 150 meq of soidum bicarbonate at 100cc per hour trend renal function and electrolytes BID Keep MAP > 65 avoid МАРИНА/ARB, NSAIDs and IV contrast no emergent indication for renal replacement therapy Thank you Freddie Forbes DO
[2019-07-18 15:36] LABS: EPI CELLS 3.1 /HPF (0-5/HPF); HYALINE CASTS 64 /lpf (0-8); PH,URINE 6.5 (5.0-8.0); URINE APPEARANCE CLOUDY; URINE BACTERIA 1853.2 /hpf (NEGATIVE); URINE BILIRUBIN NEGATIVE (NEGATIVE); URINE COLOR YELLOW; URINE GLUCOSE (UA) NEGATIVE (NEGATIVE); URINE KETONE NEGATIVE (NEGATIVE); URINE LEUK ESTERASE 2+ (NEGATIVE); URINE NITRITE NEGATIVE (NEGATIVE); URINE PROTEIN 1+ (NEGATIVE); URINE RBC 8 /hpf (0-4); URINE UROBILINOGEN 0.2 mg/dL (0.2-1.0); URINE WBC 88 /hpf (0-5)
--- NOTE | 2019-07-18 16:19 | HP ---
CHIEF COMPLAINT: L buttock pain HISTORY OF PRESENT ILLNESS: 68 M h/o morbid obesity, CKD 5, bladder ca s/p ilealconduit, T2DM, HTN, HLD, MARLON presents with complains of L buttock pain that started on Thursday and evolved over the weekend. Patient endorses L buttock pain started on Thursday as discomfort in the region, but slowly evolved to warmth, pain, to the point where he cannot sit on that side. Denies fever or chills. Endorses decreased amount of urine draining from ileal conduit bag, over the past 2 weeks. Was told by his outpatient [facility] Dr. Cain his GFR was around 14-15, and no plan for HD was given at that time. Currently denies: SOB, altered taste sensation, N/V/D, LOC/chest pain. Endorses chronic cough which is non- productive. Was recently admitted in 03/2019 for treatment of UTI where HD was not initiated. Recent Travel: PAST MEDICAL HISTORY: bladder ca s/p ileal conduit, CKD 5, HTN, obesity, MARLON, T2DM, HLD, obesity, CAD PAST SURGICAL HISTORY: ileal conduit Social History: Smoking: denies Alcohol: denies Drugs: denies Allergies shrimp Allergy (Intermediate, Verified 07/18/19 08:18) Vomiting HOME MEDICATIONS: Home Medications Medication Instructions Recorded Atorvastatin Ca [Lipitor] 10 mg PO DAILY 06/07/17 Cholecalciferol (Vitamin D3) 1,000 unit PO DAILY 06/07/17 [Vitamin D3] Cyanocobalamin [Vitamin B12 -] 1,000 mcg PO DAILY 06/07/17 Doxazosin Mesylate [Cardura -] 4 mg PO DAILY 06/07/17 Multivitamin [One Daily] 1 each PO DAILY 06/07/17 Insulin Detemir [Levemir Flextouch] 50 unit SQ HS 11/05/17 Aspirin 81 mg PO DAILY 06/18/18 Gabapentin 300 mg PO DAILY 06/18/18 Budesonide/Formeterol Fumarate 1 inh PO BID 11/03/18 [SYMBICORT 160/4.5mcg -] Ipratropium/Albuterol Sulfate 4 gm IH BID 11/03/18 [Combivent Respimat 20-100 Mcg] Cyclobenzaprine HCl 10 mg PO TID PRN #9 tablet 04/08/19 Insulin (Novolog) [Novolog -] 50 units SQ AM 04/08/19 Sodium Bicarbonate - 650 mg PO BID 04/08/19 Furosemide 80 mg PO DAILY 30 Days #30 tablet 04/11/19 hydrALAZINE HCL [Apresoline -] 10 mg PO BID 30 Days tablet 04/11/19 levoFLOXacin [Levaquin -] 250 mg PO Q48H #5 tablet 04/11/19 REVIEW OF SYSTEMS CONSTITUTIONAL: Absent: fever, chills, diaphoresis, generalized weakness, malaise, loss of appetite, weight change HEENT: Absent: rhinorrhea, nasal congestion, throat pain, throat swelling, difficulty swallowing, mouth swelling, ear pain, eye pain, visual changes CARDIOVASCULAR: Absent: chest pain, syncope, palpitations, irregular heart rate, lightheadedness , peripheral edema RESPIRATORY: Absent: cough, shortness of breath, dyspnea with exertion, orthopnea, wheezing, stridor, hemoptysis GASTROINTESTINAL: Absent: abdominal pain, abdominal distension, nausea, vomiting, diarrhea, constipation, melena, hematochezia GENITOURINARY: Absent: dysuria, frequency, urgency, hesitancy, hematuria, flank pain, genital pain MUSCULOSKELETAL: Absent: myalgia, arthralgia, joint swelling, back pain, neck pain SKIN: Absent: rash, itching, pallor HEMATOLOGIC/IMMUNOLOGIC: Absent: easy bleeding, easy bruising, lymphadenopathy, frequent infections ENDOCRINE: Absent: unexplained weight gain, unexplained weight loss, heat intolerance, cold intolerance NEUROLOGIC: Absent: headache, focal weakness or paresthesias, dizziness, unsteady gait, seizure, mental status changes, bladder or bowel incontinence PSYCHIATRIC: Absent: anxiety, depression, suicidal or homicidal ideation, hallucinations. PHYSICAL EXAMINATION Vital Signs - 24 hr 07/18/19 08:08 Temperature 98.0 F Pulse Rate 114 H Respiratory 16 Rate Blood Pressure 105/61 O2 Sat by Pulse 100 Oximetry (%) GENERAL: Awake, alert, and fully oriented, in no acute distress. HEAD: Normal with no signs of trauma. EYES: Pupils equal, round and reactive to light, extraocular movements intact, sclera anicteric, conjunctiva clear. No lid lag. EARS, NOSE, THROAT: Ears normal, nares patent, oropharynx clear without exudates. Moist mucous membranes. NECK: Normal range of motion, supple without lymphadenopathy, JVD, or masses. LUNGS: Breath sounds equal, clear to auscultation bilaterally. No wheezes, and no crackles. No accessory muscle use. HEART: Regular rate and rhythm, normal S1 and S2 without murmur, rub or gallop. ABDOMEN: Soft, nontender, not distended, normoactive bowel sounds, no guarding, no rebound, no masses. No hepatomegaly or splenomegaly. MUSCULOSKELETAL: Normal range of motion at all joints. No bony deformities or tenderness. No CVA tenderness. UPPER EXTREMITIES: 2+ pulses, warm, well-perfused. No cyanosis. No clubbing. No peripheral edema. LOWER EXTREMITIES: 2+ pulses, warm, well-perfused. No calf tenderness. No peripheral edema. NEUROLOGICAL: Cranial nerves II-XII intact. Normal speech. Normal gait. PSYCHIATRIC: Cooperative. Good eye contact. Appropriate mood and affect. SKIN: Warm, dry, normal turgor, no rashes or lesions noted, normal capillary refill. Laboratory Results - last 24 hr 07/18/19 07/18/19 07/18/19 09:25 09:25 09:25 WBC 13.6 H RBC 4.09 Hgb 11.1 L Hct 33.8 L MCV 82.6 MCH 27.1 MCHC 32.9 RDW 15.9 Plt Count 190 D MPV 8.4 Absolute Neuts (auto) 11.8 H Neutrophils % 86.7 H Lymphocytes % 4.1 L D Monocytes % 7.3 Eosinophils % 1.7 Basophils % 0.2 Nucleated RBC % 0 VBG pH POC VBG pCO2 POC VBG pO2 VBG HCO3 VBG O2 Sat (Meredith) VBG Base Excess Sodium 138 Potassium 4.2 Chloride 117 H Carbon Dioxide 10 L Anion Gap 11 BUN 122.4 H* Creatinine 5.3 H Est GFR (CKD-EPI)AfAm 11.72 Est GFR (CKD-EPI)NonAf 10.11 Random Glucose 245 H Lactic Acid 1.0 Calcium 8.7 Total Bilirubin 0.4 AST 15 ALT 25 Alkaline Phosphatase 77 Total Protein 6.9 Albumin 3.2 L Beta-Hydroxybutyrate 4.3 H Urine Color Urine Appearance Urine pH Ur Specific [place] Urine Protein Urine Glucose (UA) Urine Ketones Urine Blood Urine Nitrite Urine Bilirubin Urine Urobilinogen Ur Leukocyte Esterase Urine WBC (Auto) Urine RBC (Auto) Urine Casts (Auto) U Epithel Cells (Auto) Urine Bacteria (Auto) Blood Type Antibody Screen 1207/18/19 07/18/19 09:25 09:25 13:03 WBC RBC Hgb Hct MCV MCH MCHC RDW Plt Count MPV Absolute Neuts (auto) Neutrophils % Lymphocytes % Monocytes % Eosinophils % Basophils % Nucleated RBC % VBG pH 7.15 L* POC VBG pCO2 27.9 L POC VBG pO2 64.5 H VBG HCO3 9.3 L VBG O2 Sat (Meredith) 88.6 H VBG Base Excess -18.3 L Sodium Potassium Chloride Carbon Dioxide Anion Gap BUN Creatinine Est GFR (CKD-EPI)AfAm Est GFR (CKD-EPI)NonAf Random Glucose Lactic Acid Calcium Total Bilirubin AST ALT Alkaline Phosphatase Total Protein Albumin Beta-Hydroxybutyrate Urine Color Yellow Urine Appearance Cloudy Urine pH 6.5 Ur Specific [place] 1.012 Urine Protein 1+ H Urine Glucose (UA) Negative Urine Ketones Negative Urine Blood 1+ H Urine Nitrite Negative Urine Bilirubin Negative Urine Urobilinogen 0.2 Ur Leukocyte Esterase 2+ H Urine WBC (Auto) 88 Urine RBC (Auto) 8 Urine Casts (Auto) 64 U Epithel Cells (Auto) 3.1 Urine Bacteria (Auto) 1853.2 Blood Type A POSITIVE Antibody Screen Negative Home Medications Medication Instructions Recorded Atorvastatin Ca [Lipitor] 10 mg PO DAILY 06/07/17 Cholecalciferol (Vitamin D3) 1,000 unit PO DAILY 06/07/17 [Vitamin D3] Cyanocobalamin [Vitamin B12 -] 1,000 mcg PO DAILY 06/07/17 Doxazosin Mesylate [Cardura -] 4 mg PO DAILY 06/07/17 Multivitamin [One Daily] 1 each PO DAILY 06/07/17 Insulin Detemir [Levemir Flextouch] 50 unit SQ HS 11/05/17 Aspirin 81 mg PO DAILY 06/18/18 Gabapentin 300 mg PO DAILY 06/18/18 Budesonide/Formeterol Fumarate 1 inh PO BID 11/03/18 [SYMBICORT 160/4.5mcg -] Ipratropium/Albuterol Sulfate 4 gm IH BID 11/03/18 [Combivent Respimat 20-100 Mcg] Cyclobenzaprine HCl 10 mg PO TID PRN #9 tablet 04/08/19 Insulin (Novolog) [Novolog -] 50 units SQ AM 04/08/19 Sodium Bicarbonate - 650 mg PO BID 04/08/19 Furosemide 80 mg PO DAILY 30 Days #30 tablet 04/11/19 hydrALAZINE HCL [Apresoline -] 10 mg PO BID 30 Days tablet 04/11/19 levoFLOXacin [Levaquin -] 250 mg PO Q48H #5 tablet 04/11/19 Current Medications Generic Name Dose Route Start Last Admin Trade Name Freq PRN Reason Stop Dose Admin Albuterol/Ipratropium 1 amp 07/18/19 15:19 Duoneb - NEB Q6H PRN SHORTNESS OF BREATH Aspirin 81 mg 07/19/19 10:00 Ecotrin - PO DAILY [facility] Atorvastatin Calcium 10 mg 07/18/19 22:00 Lipitor - PO HS [facility] Budesonide/Formoterol Fumarate 1 puff 07/18/19 22:00 Symbicort 160/4.5mcg - IH BID [facility] Cholecalciferol 1,000 unit 07/19/19 10:00 Vitamin D3 - PO DAILY [facility] Cyanocobalamin 1,000 mcg 07/19/19 10:00 Vitamin B12 - PO DAILY [facility] Doxazosin Mesylate 4 mg 07/19/19 10:00 Cardura - PO DAILY [facility] Gabapentin 300 mg 07/19/19 10:00 Neurontin - PO DAILY [facility] Heparin Sodium (Porcine) 5,000 unit 07/18/19 22:00 Heparin - SQ TID [facility] Hydralazine HCl 10 mg 07/18/19 22:00 Apresoline - PO BID [facility] Sodium Bicarbonate 150 meq/ 1,150 mls @ 100 mls/hr 07/18/19 15:15 Dextrose IV .Q10H [facility] Insulin Aspart 25 units 07/18/19 16:30 Novolog SQ BID@0700,1630 [facility] Insulin Detemir 30 units 07/18/19 22:00 Levemir Vial SQ HS [facility] ASSESSMENT/PLAN: 68 y.o. AA Male, h/o CKD stage 5, urethral diversion with ileual conduit, COPD, HTN, HLD, MARLON, morbid obesity who presented from home with lynn-rectal abscess with concurrent MEKA on CKD 5. Acute on chronic renal insufficiency with CKD 5 no urgent need for HD as there are no signs of refractory symptoms, pH corrected is around 7.2, will start Bicarb drip as per renal recommendations MEKA likely pre-renal, patient received 2L fluid bolus in ED will hold off on further hydration and check BMP Will hold Lasix for now in view of MEKA Renal consult: Dr. Forbes Lynn-rectal L buttock abscess Vanco and Zosyn started in ED Soft tissue ultrasound to evaluate for fluid pocket ID consult: Dr Baires Surgery evaluation: Dr. Hill T2DM with hyperglycemia in view of declining renal function will lower home dose of Levemir to 30u QHS, and split Novolog to 25u BID supplement with sliding scale Diabetic diet COPD not in acute exacerbation duonebs PRN restart home meds HTN controlled, restart home BP meds HLD Cont. statin MARLON on CPAP patient recently underwent CPAP titration study, restart CPAP at pressure of 13cm of h2o Morbid obesity counseled on diet, exercise and weight loss Renal, diabetic diet Anemia secondary to underlying CKD iron repletion DVT ppx: Heparin SC FEN: D5W with HCO3, BID chem, DM/renal diet Visit type - Emergency Visit Emergency Visit: Yes ED Registration Date: 07/18/19 Care time: The patient presented to the Emergency Department on the above date and was hospitalized for further evaluation of their emergent condition. - New Patient This patient is new to me today: Yes Date on this admission: 07/18/19 - Critical Care Critical Care patient: No
[2019-07-18 17:24] LABS: URINE CRYSTALS FEW /hpf
[2019-07-18] MEDS: Insulin (LOG) Aspart 100 UNITS/ML VIAL SQ SCH (17:37)
[2019-07-18 18:00] LABS: CALCIUM 8.2 mg/dL (8.5-10.1); CREATININE 4.8 mg/dL (0.55-1.3); POTASSIUM 4.4 mmol/L (3.5-5.1)
[2019-07-18 18:02] LABS: BLOOD UREA NITROGEN 113.8 mg/dL (7-18)
[2019-07-18] MEDS: SODIUM BICARBONATE 8.4% - 150 MEQ in DEXTROSE 5%-WATER - 1,000 ML IV SCH (19:58)
[2019-07-18] MEDS: INSULIN SLIDING SCALE (NOVOLOG) 1 VIAL SQ SCH (23:05)
[2019-07-19] MEDS: ATORVASTATIN CA 10 MG TABLET (FP) PO SCH ×2 (00:09→22:26)
[2019-07-19] MEDS: INSULIN (LEVEMIR) 100 UNITS/ML UNITS SQ SCH ×2 (00:09→22:31)
[2019-07-19] MEDS: HEPARIN NA (PORCINE) 5,000 UNITS/ML 1ML VIAL SQ SCH ×4 (00:09→22:25)
[2019-07-19] MEDS: hydrALAZINE HCL 10 MG TABLET PO SCH ×3 (00:10→22:25)
[2019-07-19] MEDS: BUDESONIDE/FORMETEROL FUMARATE 160/4.5 mcg INHALER IH SCH ×3 (00:10→22:32)
[2019-07-19] MEDS: SODIUM BICARBONATE 8.4% - 150 MEQ in DEXTROSE 5%-WATER - 1,000 ML IV SCH ×3 (02:45→11:51)
[2019-07-19] MEDS: INSULIN SLIDING SCALE (NOVOLOG) 1 VIAL SQ SCH ×4 (06:01→22:33)
[2019-07-19] MEDS: Insulin (LOG) Aspart 100 UNITS/ML VIAL SQ SCH ×2 (06:01→17:51)
[2019-07-19 07:00] LABS: MAGNESIUM 2.5 mg/dL (1.8-2.4); PHOSPHOROUS 5.1 mg/dL (2.5-4.9)
[2019-07-19] MEDS ORDERED: oxyCODONE HCL 5 MG TABLET PO PRN ×2 (08:42→09:27)
[2019-07-19] MEDS ORDERED: ONDANSETRON 4 MG/2 ML VIAL IVPUSH PRN (08:44)
[2019-07-19] MEDS ORDERED: PT OWN MED DRAWER 7, Y5N ONE (09:11)
[2019-07-19] MEDS: ASPIRIN COATED 81 MG TABLET.EC PO SCH (09:13)
[2019-07-19] MEDS: GABAPENTIN 300 MG CAPSULE (FP) PO SCH (09:14)
[2019-07-19] MEDS: CHOLECALCIFEROL (VIT D3) 1,000 UNIT (25 MCG) TABLET PO SCH (09:15)
--- NOTE | 2019-07-19 09:15 | PN ---
Physical Exam: SUBJECTIVE: Patient seen and examined in tele reports severe pain from left buttocks abscess, now draining more cultures sent noticed the abscess/pain since Thursday, has not been able to sit down due to pain He consents to HIV test. OBJECTIVE: Patient is a 68 year old male who presents with left lower buttocks abscess. Past medical hisotry includes bladder CA status post urostomy, diabetes, baseline renal insufficiency, hyperglycemia. imaging: pelvic ct: stable ventral hernias, no perirectal abscess seen Vital Signs Period Temp Pulse Resp BP Sys/Argueta Pulse Ox Last 24 Hr 97.9 F-98.5 F 81-104 16-24 109-170/65-88 98-100 GENERAL: The patient is awake, alert, and fully oriented, in no acute distress. HEAD: Normal with no signs of trauma. EYES: PERRL, extraocular movements intact, sclera anicteric, conjunctiva clear. No ptosis. ENT: Ears normal, nares patent, oropharynx clear without exudates, moist mucous membranes. NECK: Trachea midline, full range of motion, supple. LUNGS: Breath sounds diminished bilaterally HEART: Regular rate and rhythm ABDOMEN: Soft, nontender, mildly distended, normoactive bowel sounds - urine stoma pink on right lower quadrant EXTREMITIES: no edema. NEUROLOGICAL: Normal speech, gait not observed. ambulates with a cane PSYCH: Normal mood, normal affect. SKIN: left lower buttocks abscess, drainage, painful to palpation Laboratory Results - last 24 hr 07/18/19 07/18/19 07/18/19 09:25 09:25 09:25 WBC 13.6 H RBC 4.09 Hgb 11.1 L Hct 33.8 L MCV 82.6 MCH 27.1 MCHC 32.9 RDW 15.9 Plt Count 190 D MPV 8.4 Absolute Neuts (auto) 11.8 H Neutrophils % 86.7 H Lymphocytes % 4.1 L D Monocytes % 7.3 Eosinophils % 1.7 Basophils % 0.2 Nucleated RBC % 0 VBG pH POC VBG pCO2 POC VBG pO2 VBG HCO3 VBG O2 Sat (Meredith) VBG Base Excess Sodium 138 Potassium 4.2 Chloride 117 H Carbon Dioxide 10 L Anion Gap 11 BUN 122.4 H* Creatinine 5.3 H Est GFR (CKD-EPI)AfAm 11.72 Est GFR (CKD-EPI)NonAf 10.11 POC Glucometer Random Glucose 245 H Lactic Acid 1.0 Calcium 8.7 Phosphorus Magnesium Total Bilirubin 0.4 AST 15 ALT 25 Alkaline Phosphatase 77 Total Protein 6.9 Albumin 3.2 L Beta-Hydroxybutyrate 4.3 H Urine Color Urine Appearance Urine pH Ur Specific [place] Urine Protein Urine Glucose (UA) Urine Ketones Urine Blood Urine Nitrite Urine Bilirubin Urine Urobilinogen Ur Leukocyte Esterase Urine WBC (Auto) Urine RBC (Auto) Urine Casts (Auto) U Pathogenic Cast Auto U Epithel Cells (Auto) Urine Crystals (Auto) Urine Bacteria (Auto) Ur Random Creatinine Ur Random Sodium Ur Random Potassium Ur Random Chloride Ur Random Urea Nitrogn Blood Type Antibody Screen 07/18/19 07/18/19 07/18/19 09:25 09:25 13:03 WBC RBC Hgb Hct MCV MCH MCHC RDW Plt Count MPV Absolute Neuts (auto) Neutrophils % Lymphocytes % Monocytes % Eosinophils % Basophils % Nucleated RBC % VBG pH 7.15 L* POC VBG pCO2 27.9 L POC VBG pO2 64.5 H VBG HCO3 9.3 L VBG O2 Sat (Meredith) 88.6 H VBG Base Excess -18.3 L Sodium Potassium Chloride Carbon Dioxide Anion Gap BUN Creatinine Est GFR (CKD-EPI)AfAm Est GFR (CKD-EPI)NonAf POC Glucometer Random Glucose Lactic Acid Calcium Phosphorus Magnesium Total Bilirubin AST ALT Alkaline Phosphatase Total Protein Albumin Beta-Hydroxybutyrate Urine Color Yellow Urine Appearance Cloudy Urine pH 6.5 Ur Specific [place] 1.012 Urine Protein 1+ H Urine Glucose (UA) Negative Urine Ketones Negative Urine Blood 1+ H Urine Nitrite Negative Urine Bilirubin Negative Urine Urobilinogen 0.2 Ur Leukocyte Esterase 2+ H Urine WBC (Auto) 88 Urine RBC (Auto) 8 Urine Casts (Auto) 64 U Pathogenic Cast Auto Negative U Epithel Cells (Auto) 3.1 Urine Crystals (Auto) Few Urine Bacteria (Auto) 1853.2 Ur Random Creatinine Ur Random Sodium Ur Random Potassium Ur Random Chloride Ur Random Urea Nitrogn Blood Type A POSITIVE Antibody Screen Negative 07/18/19 07/18/19 07/18/19 17:00 17:00 17:00 WBC RBC Hgb Hct MCV MCH MCHC RDW Plt Count MPV Absolute Neuts (auto) Neutrophils % Lymphocytes % Monocytes % Eosinophils % Basophils % Nucleated RBC % VBG pH POC VBG pCO2 POC VBG pO2 VBG HCO3 VBG O2 Sat (Meredith) VBG Base Excess Sodium Potassium Chloride Carbon Dioxide Anion Gap BUN Creatinine Est GFR (CKD-EPI)AfAm Est GFR (CKD-EPI)NonAf POC Glucometer Random Glucose Lactic Acid Calcium Phosphorus Magnesium Total Bilirubin AST ALT Alkaline Phosphatase Total Protein Albumin Beta-Hydroxybutyrate Urine Color Urine Appearance Urine pH Ur Specific [place] Urine Protein Urine Glucose (UA) Urine Ketones Urine Blood Urine Nitrite Urine Bilirubin Urine Urobilinogen Ur Leukocyte Esterase Urine WBC (Auto) Urine RBC (Auto) Urine Casts (Auto) U Pathogenic Cast Auto U Epithel Cells (Auto) Urine Crystals (Auto) Urine Bacteria (Auto) Ur Random Creatinine 69.0 Cancelled Ur Random Sodium Cancelled 37 L Ur Random Potassium 14.0 L Ur Random Chloride 23 L Ur Random Urea Nitrogn 583 Blood Type Antibody Screen 07/18/19 07/18/19 07/18/19 17:00 17:15 22:58 WBC RBC Hgb Hct MCV MCH MCHC RDW Plt Count MPV Absolute Neuts (auto) Neutrophils % Lymphocytes % Monocytes % Eosinophils % Basophils % Nucleated RBC % VBG pH POC VBG pCO2 POC VBG pO2 VBG HCO3 VBG O2 Sat (Meredith) VBG Base Excess Sodium 140 Potassium 4.4 Chloride 116 H Carbon Dioxide 11 L Anion Gap 13 BUN 113.8 H* Creatinine 4.8 H Est GFR (CKD-EPI)AfAm 13.21 Est GFR (CKD-EPI)NonAf 11.40 POC Glucometer 139 Random Glucose 261 H Lactic Acid Calcium 8.2 L Phosphorus Magnesium Total Bilirubin AST ALT Alkaline Phosphatase Total Protein Albumin Beta-Hydroxybutyrate Urine Color Urine Appearance Urine pH Ur Specific [place] Urine Protein Urine Glucose (UA) Urine Ketones Urine Blood Urine Nitrite Urine Bilirubin Urine Urobilinogen Ur Leukocyte Esterase Urine WBC (Auto) Urine RBC (Auto) Urine Casts (Auto) U Pathogenic Cast Auto U Epithel Cells (Auto) Urine Crystals (Auto) Urine Bacteria (Auto) Ur Random Creatinine Ur Random Sodium Ur Random Potassium Ur Random Chloride Ur Random Urea Nitrogn Cancelled Blood Type Antibody Screen 07/19/19 07/19/19 05:30 05:48 WBC RBC Hgb Hct MCV MCH MCHC RDW Plt Count MPV Absolute Neuts (auto) Neutrophils % Lymphocytes % Monocytes % Eosinophils % Basophils % Nucleated RBC % VBG pH POC VBG pCO2 POC VBG pO2 VBG HCO3 VBG O2 Sat (Mereidth) VBG Base Excess Sodium Potassium Chloride Carbon Dioxide Anion Gap BUN Creatinine Est GFR (CKD-EPI)AfAm Est GFR (CKD-EPI)NonAf POC Glucometer 192 Random Glucose Lactic Acid Calcium Phosphorus 5.1 H Magnesium 2.5 H Total Bilirubin AST ALT Alkaline Phosphatase Total Protein Albumin Beta-Hydroxybutyrate Urine Color Urine Appearance Urine pH Ur Specific [place] Urine Protein Urine Glucose (UA) Urine Ketones Urine Blood Urine Nitrite Urine Bilirubin Urine Urobilinogen Ur Leukocyte Esterase Urine WBC (Auto) Urine RBC (Auto) Urine Casts (Auto) U Pathogenic Cast Auto U Epithel Cells (Auto) Urine Crystals (Auto) Urine Bacteria (Auto) Ur Random Creatinine Ur Random Sodium Ur Random Potassium Ur Random Chloride Ur Random Urea Nitrogn Blood Type Antibody Screen Active Medications Generic Name Dose Route Start Last Admin Trade Name Freq PRN Reason Stop Dose Admin Albuterol/Ipratropium 1 amp 07/18/19 15:19 Duoneb - NEB Q6H PRN SHORTNESS OF BREATH Aspirin 81 mg 07/19/19 10:00 Ecotrin - PO DAILY [facility] Atorvastatin Calcium 10 mg 07/18/19 22:00 07/19/19 00:09 Lipitor - PO 10 mg HS SHANEL Administration Budesonide/Formoterol Fumarate 1 puff 07/18/19 22:00 07/19/19 00:10 Symbicort 160/4.5mcg - IH Not Given BID [facility] Cholecalciferol 1,000 unit 07/19/19 10:00 Vitamin D3 - PO DAILY [facility] Cyanocobalamin 1,000 mcg 07/19/19 10:00 Vitamin B12 - PO DAILY [facility] Doxazosin Mesylate 4 mg 07/19/19 10:00 Cardura - PO DAILY [facility] Gabapentin 300 mg 07/19/19 10:00 Neurontin - PO DAILY [facility] Heparin Sodium (Porcine) 5,000 unit 07/18/19 22:00 07/19/19 05:51 Heparin - SQ 5,000 unit TID SHANEL Administration Hydralazine HCl 10 mg 07/18/19 22:00 07/19/19 00:10 Apresoline - PO 10 mg BID SHANEL Administration Sodium Bicarbonate 150 meq/ 1,150 mls @ 100 mls/hr 07/18/19 15:15 07/19/19 02 :45 Dextrose IV Not Given Q10H [facility] Insulin Aspart 25 units 07/18/19 16:30 07/19/19 06:01 Novolog SQ 25 units BID@0700,1630 [facility] Administration Insulin Aspart 1 vial 07/18/19 22:00 07/19/19 06:01 Novolog Vial Sliding Scale - SQ Not Given ACHS [facility] Protocol Insulin Detemir 30 units 07/18/19 22:00 07/19/19 00:09 Levemir Vial SQ 30 units HS SHANEL Administration Ondansetron HCl 4 mg 07/19/19 08:44 Zofran Injection IVPUSH Q6H PRN NAUSEA Oxycodone HCl 5 mg 07/19/19 08:42 Roxicodone - PO Q6H PRN PAIN LEVEL 7 - 10 ASSESSMENT/PLAN: Problem List - Problems (1) Abscess of buttock, left Assessment/Plan: left buttock abscess on zosyn surgery evaluation tighter control of blood sugars pain control with oxycodone will hiv test monitor culture id consulted Code(s): L02.31 - CUTANEOUS ABSCESS OF BUTTOCK (2) Acute renal insufficiency Assessment/Plan: seen by renal renal dose meds on bicarb drip Code(s): N28.9 - DISORDER OF KIDNEY AND URETER, UNSPECIFIED (3) Morbid obesity Assessment/Plan: outpatient follow up once acute issues are resolved Code(s): E66.01 - MORBID (SEVERE) OBESITY DUE TO EXCESS CALORIES (4) ARF (acute renal failure) Code(s): N17.9 - ACUTE KIDNEY FAILURE, UNSPECIFIED Qualifiers: Acute renal failure type: unspecified Qualified Code(s): N17.9 - Acute kidney failure, unspecified (5) Acute on chronic kidney failure Code(s): N17.9 - ACUTE KIDNEY FAILURE, UNSPECIFIED; N18.9 - CHRONIC KIDNEY DISEASE, UNSPECIFIED Qualifiers: Acute renal failure type: unspecified Chronic kidney disease stage: stage 4 (severe) Qualified Code(s): N17.9 - Acute kidney failure, unspecified; N18.4 - Chronic kidney disease, stage 4 (severe) (6) COPD (chronic obstructive pulmonary disease) Assessment/Plan: not in acute exacerbation tolerating room air continue home medications Code(s): J44.9 - CHRONIC OBSTRUCTIVE PULMONARY DISEASE, UNSPECIFIED (7) Diabetes Assessment/Plan: [id number] in a.m. novolog and levemir Code(s): E11.9 - TYPE 2 DIABETES MELLITUS WITHOUT COMPLICATIONS (8) DVT prophylaxis Assessment/Plan: heparin tid Code(s): Z29.9 - ENCOUNTER FOR PROPHYLACTIC MEASURES, UNSPECIFIED Visit type - Emergency Visit Emergency Visit: Yes ED Registration Date: 07/18/19 Care time: The patient presented to the Emergency Department on the above date and was hospitalized for further evaluation of their emergent condition. - New Patient This patient is new to me today: Yes Date on this admission: 07/19/19 - Critical Care Critical Care patient: No - Discharge Referral Referred to [facility] Med P.C.: No
[2019-07-19] MEDS ORDERED: PIPERACILLIN/TAZOB 2.25 GM 2.25 GM in DEXTROSE 5%-WATER - 50 ML IVPB ONE (09:30)
[2019-07-19] MEDS: CYANOCOBALAMIN 1,000 MCG TABLET (FP) PO SCH (10:34)
[2019-07-19] MEDS: DOXAZOSIN MESYLATE 4 MG TABLET PO SCH (10:34)
[2019-07-19] MEDS ORDERED: DEXTROSE 5%-WATER - 50 ML IVPB ONE ×2 (10:36→17:39)
[2019-07-19] MEDS ORDERED: PIPERACILLIN/TAZOBACTAM 2.25 GM VIAL IVPB ONE ×2 (10:36→17:39)
--- NOTE | 2019-07-19 11:34 | CON.PULM ---
Consult Consult Specialty:: PULM/CCM Referred by:: Hospitalist Reason for Consultation:: COPD / OSAS - History of Present Illness History of Present Illness: 68 M, morbid obesity, CKD 5, bladder CA s/p ileal conduit, DM, HTN, HLD, and Severe OSAS: RDI 88.2 events per hour and severe oxygen desaturation to 62%. Has not been set up with his CPAP device as yet. Admitted via the ER due to Left buttock pain that started on Thursday. Breathing has been stable. He does have some occasional dry cough. No sputum production, Shortness of Breath, or hemoptysis, etc. No recent travel history or sick contacts. 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 History of Recent Travel: No Home Medications - Allergies Allergies/Adverse Reactions: Allergies Allergy/AdvReac Type Severity Reaction Status Date / Time shrimp Allergy Intermediate Vomiting Verified 07/18/19 08:18 - Home Medications Home Medications: Ambulatory Orders Atorvastatin Ca [Lipitor] 10 mg PO DAILY 06/07/17 Cholecalciferol (Vitamin D3) [Vitamin D3] 1,000 unit PO DAILY 06/07/17 Cyanocobalamin [Vitamin B12 -] 1,000 mcg PO DAILY 06/07/17 Doxazosin Mesylate [Cardura -] 4 mg PO DAILY 06/07/17 Multivitamin [One Daily] 1 each PO DAILY 06/07/17 Insulin Detemir [Levemir Flextouch] 50 unit SQ HS 11/05/17 Aspirin 81 mg PO DAILY 06/18/18 Gabapentin 300 mg PO DAILY 06/18/18 Budesonide/Formeterol Fumarate [SYMBICORT 160/4.5mcg -] 1 inh PO BID 11/03/18 Ipratropium/Albuterol Sulfate [Combivent Respimat 20-100 Mcg] 4 gm IH BID Cyclobenzaprine HCl 10 mg PO TID PRN #9 tablet 04/08/19 Insulin (Novolog) [Novolog -] 50 units SQ AM 04/08/19 Sodium Bicarbonate - 650 mg PO BID 04/08/19 Furosemide 80 mg PO DAILY 30 Days #30 tablet 04/11/19 hydrALAZINE HCL [Apresoline -] 10 mg PO BID 30 Days tablet 04/11/19 levoFLOXacin [Levaquin -] 250 mg PO Q48H #5 tablet 04/11/19 Review of Systems - Review of Systems Constitutional: denies: Chills, Fever, Malaise, Night Sweats, Unintentional Wgt. Loss, Weakness Eyes: reports: No Symptoms HENT: reports: No Symptoms Neck: reports: No Symptoms Cardiovascular: denies: Chest Pain, Edema, Palpitations, Shortness of Breath Respiratory: reports: Cough, Snoring, SOB, SOB on Exertion, Wheezing. denies: Hemoptysis, Orthopnea, PND Gastrointestinal: reports: No Symptoms Genitourinary: reports: No Symptoms Breasts: reports: No Symptoms Reported Musculoskeletal: reports: Other (Left Buttock Pain) Integumentary: reports: No Symptoms Neurological: reports: No Symptoms Endocrine: reports: No Symptoms Hematology/Lymphatic: reports: No Symptoms Psychiatric: reports: No Symptoms Physical Exam Vital Sings: Vital Signs Temperature 97.1 F L 07/19/19 10:50 Pulse Rate 92 H 07/19/19 08:18 Respiratory Rate 22 H 07/19/19 08:18 Blood Pressure 144/67 07/19/19 08:18 O2 Sat by Pulse Oximetry (%) 100 07/19/19 09:00 Constitutional: Yes: No Distress, Calm Eyes: Yes: Conjunctiva Clear, EOM Intact HENT: Yes: Atraumatic, Normocephalic Neck: Yes: Supple, Trachea Midline Cardiovascular: Yes: Regular Rate and Rhythm Respiratory: Yes: CTA Bilaterally, Diminished. No: Accessory Muscle Use, Rales , Rhonchi, SOB, SOB on Exertion, Stridor, Tachypnea, Wheezes ...Inspection: Yes: WNL ...Clubbing: No Gastrointestinal: Yes: Normal Bowel Sounds, Soft, Abdomen, Obese Renal/: Yes: WNL Musculoskeletal: Yes: Other (Let buttock Abscess ) Extremities: Yes: WNL Edema: No Peripheral Pulses WNL: Yes Integumentary: Yes: Other (left buttock ) Neurological: Yes: WNL, Alert, Oriented ...Motor Strength: WNL Psychiatric: Yes: WNL, Alert, Oriented Labs: CBC, BMP 07/18/19 09:25 07/18/19 17:15 Imaging - Results Cat Scan: Report Reviewed, Image Reviewed Problem List - Problems (1) Morbid obesity Code(s): E66.01 - MORBID (SEVERE) OBESITY DUE TO EXCESS CALORIES (2) Abscess of buttock, left Code(s): L02.31 - CUTANEOUS ABSCESS OF BUTTOCK (3) Anemia Code(s): D64.9 - ANEMIA, UNSPECIFIED (4) Chronic kidney disease Code(s): N18.9 - CHRONIC KIDNEY DISEASE, UNSPECIFIED Qualifiers: Chronic kidney disease stage: stage 4 (severe) Qualified Code(s): N18.4 - Chronic kidney disease, stage 4 (severe) (5) Cough Code(s): R05 - COUGH (6) Diabetes Code(s): E11.9 - TYPE 2 DIABETES MELLITUS WITHOUT COMPLICATIONS Qualifiers: Diabetes mellitus type: type 2 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: with correction use Diabetes mellitus complication status: with kidney complications Diabetes mellitus complication detail: with chronic kidney disease Chronic kidney disease stage: stage 4 (severe) Qualified Code(s): E11.22 - Type 2 diabetes mellitus with diabetic chronic kidney disease; N18.4 - Chronic kidney disease, stage 4 (severe); Z79.4 - intermediate (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 Assessment/Plan Will order CPAP @ 13 cm H2O Weight loss to ideal body weight O2 as needed ABX per ID Local wound care VTE prophylaxis BD TX PRN No smoking counseled Will follow Thank you Dr Rios
--- NOTE | 2019-07-19 15:05 | PN ---
Progress Note (short form) - Note Progress Note: Renal follow up for MEKA on CKD Seen and examined at the bedside awake and alert offers no acute complaints denies any chest pain, abdominal pain, fever or chills making urine no loose stools Vital Signs Temperature 98.1 F 07/19/19 14:00 Pulse Rate 71 07/19/19 14:00 Respiratory Rate 17 07/19/19 14:00 Blood Pressure 151/68 07/19/19 14:00 O2 Sat by Pulse Oximetry (%) 100 07/19/19 09:00 Intake & Output 07/16/19 07/17/19 07/18/19 07/19/19 23:59 23:59 23:59 23:59 Intake Total 2250 300 Output Total 850 2400 Balance 1400 -2100 Weight 131.496 kg NAD RRR CTA no rales or wheeze soft, obese, NT/ND + trace to mild edema in LE no CVA tenderness CBC, BMP 07/18/19 09:25 07/18/19 17:15 Current Medications Albuterol/Ipratropium (Duoneb -) 1 amp NEB Q6H PRN PRN Reason: SHORTNESS OF BREATH Aspirin (Ecotrin -) 81 mg PO DAILY [facility] Last Admin: 07/19/19 09:13 Dose: 81 mg Atorvastatin Calcium (Lipitor -) 10 mg PO HS [facility] Last Admin: 07/19/19 00:09 Dose: 10 mg Budesonide/Formoterol Fumarate (Symbicort 160/4.5mcg -) 1 puff IH BID [facility] Last Admin: 07/19/19 11:46 Dose: 1 puff Cholecalciferol (Vitamin D3 -) 1,000 unit PO DAILY [facility] Last Admin: 07/19/19 09:15 Dose: 1,000 unit Cyanocobalamin (Vitamin B12 -) 1,000 mcg PO DAILY [facility] Last Admin: 07/19/19 10:34 Dose: 1,000 mcg Doxazosin Mesylate (Cardura -) 4 mg PO DAILY [facility] Last Admin: 07/19/19 10:34 Dose: 4 mg Gabapentin (Neurontin -) 300 mg PO DAILY [facility] Last Admin: 07/19/19 09:14 Dose: 300 mg Heparin Sodium (Porcine) (Heparin -) 5,000 unit SQ TID [facility] Last Admin: 07/19/19 14:05 Dose: 5,000 unit Hydralazine HCl (Apresoline -) 10 mg PO BID [facility] Last Admin: 07/19/19 09:12 Dose: 10 mg Sodium Bicarbonate 150 meq/ (Dextrose) 1,150 mls @ 100 mls/hr IV Q10H [facility] Last Admin: 07/19/19 11:51 Dose: 100 mls/hr Insulin Aspart (Novolog) 25 units SQ BID@0700,1630 [facility] Last Admin: 07/19/19 06:01 Dose: 25 units Insulin Aspart (Novolog Vial Sliding Scale -) 1 vial SQ ACHS [facility]; Protocol Last Admin: 07/19/19 11:48 Dose: 2 units Insulin Detemir (Levemir Vial) 30 units SQ HS [facility] Last Admin: 07/19/19 00:09 Dose: 30 units Ondansetron HCl (Zofran Injection) 4 mg IVPUSH Q6H PRN PRN Reason: NAUSEA Last Admin: 07/19/19 09:16 Dose: 4 mg Oxycodone HCl (Roxicodone -) 5 mg PO Q6H PRN PRN Reason: PAIN LEVEL 4 - 6 Oxycodone HCl (Roxicodone -) 10 mg PO Q6H PRN PRN Reason: PAIN LEVEL 7 - 10 68 year old gentleman with history of CKD stage 4, urethral diverison with ileual conduit, COPD, hypertension, hyperlipideima who presented from home with perirectal abcess with MEKA on CKD. 1. Acute on chronic renal insufficiency 2. CKD stage 4 3. Acute on Chronic metabolic acidosis 4. Anemia 5. Perirectal abcess Renal function with slight improvement as of yesterday evening. No new BMP to review from this am, added BMP on to already collected labs. Continue IV with bicarbonate for now pending repeat labs. no emergent indication for dialysis at this time. Was on zosyn, continued abx as per primary/ID. Trend H/H Continue Cardura for hypertensoin Thank you Freddie Forbes DO
--- NOTE | 2019-07-19 15:21 | CON.ID ---
Consult Consult Specialty:: infectious diseases Referred by:: karyna Reason for Consultation:: abscess of the left gluteal region - History of Present Illness Chief Complaint: pain left buttock region History of Present Illness: 68 M h/o morbid obesity, CKD , bladder ca s/p ilealconduit, T2DM, HTN, HLD, MARLON presents with complains of L buttock pain that started on Thursday and evolved over the weekend. Patient endorses L buttock pain started on Thursday as discomfort in the region, but slowly evolved to warmth, pain, to the point where he cannot sit on that side. 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 History of Recent Travel: No Home Medications - Allergies Allergies/Adverse Reactions: Allergies Allergy/AdvReac Type Severity Reaction Status Date / Time shrimp Allergy Intermediate Vomiting Verified 07/18/19 08:18 - Home Medications Home Medications: Ambulatory Orders Atorvastatin Ca [Lipitor] 10 mg PO DAILY 06/07/17 Cholecalciferol (Vitamin D3) [Vitamin D3] 1,000 unit PO DAILY 06/07/17 Cyanocobalamin [Vitamin B12 -] 1,000 mcg PO DAILY 06/07/17 Doxazosin Mesylate [Cardura -] 4 mg PO DAILY 06/07/17 Multivitamin [One Daily] 1 each PO DAILY 06/07/17 Insulin Detemir [Levemir Flextouch] 50 unit SQ HS 11/05/17 Aspirin 81 mg PO DAILY 06/18/18 Gabapentin 300 mg PO DAILY 06/18/18 Budesonide/Formeterol Fumarate [SYMBICORT 160/4.5mcg -] 1 inh PO BID 11/03/18 Ipratropium/Albuterol Sulfate [Combivent Respimat 20-100 Mcg] 4 gm IH BID Cyclobenzaprine HCl 10 mg PO TID PRN #9 tablet 04/08/19 Insulin (Novolog) [Novolog -] 50 units SQ AM 04/08/19 Sodium Bicarbonate - 650 mg PO BID 04/08/19 Furosemide 80 mg PO DAILY 30 Days #30 tablet 04/11/19 hydrALAZINE HCL [Apresoline -] 10 mg PO BID 30 Days tablet 04/11/19 levoFLOXacin [Levaquin -] 250 mg PO Q48H #5 tablet 04/11/19 Review of Systems - Review of Systems Constitutional: reports: No Symptoms Eyes: reports: No Symptoms HENT: reports: No Symptoms Neck: reports: No Symptoms Cardiovascular: reports: No Symptoms Respiratory: reports: Cough, SOB, SOB on Exertion Gastrointestinal: reports: No Symptoms Genitourinary: reports: Other (decreased urine output) Musculoskeletal: reports: No Symptoms Integumentary: reports: Wound Neurological: reports: No Symptoms Endocrine: reports: No Symptoms Hematology/Lymphatic: reports: No Symptoms Psychiatric: reports: No Symptoms Physical Exam Vital Signs: Vital Signs Temperature 98.1 F 07/19/19 14:00 Pulse Rate 71 07/19/19 14:00 Respiratory Rate 17 07/19/19 14:00 Blood Pressure 151/68 07/19/19 14:00 O2 Sat by Pulse Oximetry (%) 100 07/19/19 09:00 Constitutional: Yes: Well Nourished, Calm, Mild Distress Neck: Yes: Supple, Trachea Midline Cardiovascular: Yes: Regular Rate and Rhythm Respiratory: Yes: Regular, CTA Bilaterally Gastrointestinal: Yes: Normal Bowel Sounds, Soft Musculoskeletal: Yes: WNL Extremities: Yes: WNL Wound/Incision: Yes: Open to air, Other (dry intact) Neurological: Yes: Alert, Oriented Psychiatric: Yes: Alert, Oriented Labs: CBC, BMP 07/18/19 09:25 07/18/19 17:15 Imaging - Results Cat Scan: Report Reviewed, Image Reviewed Assessment/Plan 68 year old gentleman with history of CKD stage 4, urethral diverison with ileual conduit, COPD, hypertension, hyperlipideima who presented from home with perirectal abcess with MEKA on CKD. 1. Acute on chronic renal insufficiency 2. CKD stage 4 3. Acute on Chronic metabolic acidosis 4. Anemia 5. Perirectal abcess site looks clean and dry plan we will continue abx await for wound cx rest as per the team
[2019-07-19 16:12] LABS: BASO % 0.5 % (0-2.0); EOS % 2.8 % (0-4.5); HEMATOCRIT 30.2 % (35.4-49); LYMPH % 5.7 % (8-40); MCH 27.5 pg (25.7-33.7); MCHC 33.2 g/dl (32.0-35.9); MEAN CELL VOLUME 82.8 fl (80-96); MEAN PLT VOLUME 7.9 fl (7.5-11.1); MONO % 6.7 % (3.8-10.2); NEUT % 84.3 % (42.8-82.8); PLATELET COUNT 173 K/MM3 (134-434); RBC 3.65 M/mm3 (4.00-5.60); RDW 15.8 % (11.9-15.9); WHITE BLOOD COUNT 10.1 K/mm3 (4.0-10.0)
[2019-07-19 16:40] LABS: ALBUMIN 2.5 g/dl (3.4-5.0); BILIRUBIN,TOTAL 0.4 mg/dL (0.2-1); BLOOD UREA NITROGEN 92.7 mg/dL (7-18); CALCIUM 8.1 mg/dL (8.5-10.1); CREATININE 3.5 mg/dL (0.55-1.3); MAGNESIUM 2.4 mg/dL (1.8-2.4); POTASSIUM 3.7 mmol/L (3.5-5.1); TOT PROT 5.7 g/dl (6.4-8.2)
[2019-07-19] MEDS: oxyCODONE HCL 5 MG TABLET PO PRN (17:40)
[2019-07-19] MEDS: PIPERACILLIN/TAZOB 2.25 GM 2.25 GM in DEXTROSE 5%-WATER - 50 ML IVPB SCH (17:43)
[2019-07-20] MEDS: SODIUM BICARBONATE 8.4% - 150 MEQ in DEXTROSE 5%-WATER - 1,000 ML IV SCH ×2 (00:06→14:34)
[2019-07-20] MEDS ORDERED: DEXTROSE 5%-WATER - 50 ML IVPB ONE ×3 (00:58→16:48)
[2019-07-20] MEDS ORDERED: PIPERACILLIN/TAZOBACTAM 2.25 GM VIAL IVPB ONE ×3 (00:58→16:48)
[2019-07-20] MEDS: PIPERACILLIN/TAZOB 2.25 GM 2.25 GM in DEXTROSE 5%-WATER - 50 ML IVPB SCH ×3 (01:13→18:49)
[2019-07-20] MEDS: HEPARIN NA (PORCINE) 5,000 UNITS/ML 1ML VIAL SQ SCH ×3 (06:31→21:08)
[2019-07-20] MEDS: Insulin (LOG) Aspart 100 UNITS/ML VIAL SQ SCH ×2 (06:46→16:51)
[2019-07-20] MEDS: INSULIN SLIDING SCALE (NOVOLOG) 1 VIAL SQ SCH ×4 (06:47→21:08)
[2019-07-20 06:59] LABS: BASO % 0.6 % (0-2.0); EOS % 3.1 % (0-4.5); HEMATOCRIT 34.7 % (35.4-49); HEMOGLOBIN 11.7 GM/dL (11.7-16.9); LYMPH % 5.9 % (8-40); MCH 27.6 pg (25.7-33.7); MCHC 33.6 g/dl (32.0-35.9); MEAN PLT VOLUME 8.1 fl (7.5-11.1); MONO % 5.1 % (3.8-10.2); NEUT % 85.3 % (42.8-82.8); PLATELET COUNT 203 K/MM3 (134-434); RBC 4.23 M/mm3 (4.00-5.60); RDW 15.8 % (11.9-15.9); WHITE BLOOD COUNT 11.1 K/mm3 (4.0-10.0)
[2019-07-20 08:06] LABS: ALBUMIN 3.1 g/dl (3.4-5.0); BILIRUBIN,TOTAL 0.6 mg/dL (0.2-1); BLOOD UREA NITROGEN 78.8 mg/dL (7-18); CALCIUM 8.6 mg/dL (8.5-10.1); CREATININE 3.6 mg/dL (0.55-1.3); MAGNESIUM 2.2 mg/dL (1.8-2.4); PHOSPHOROUS 2.7 mg/dL (2.5-4.9); POTASSIUM 3.7 mmol/L (3.5-5.1)
[2019-07-20] MEDS ORDERED: PT OWN MED DRAWER 7, Y5N ONE ×2 (09:27→10:56)
--- NOTE | 2019-07-20 09:35 | PN ---
Physical Exam: SUBJECTIVE: Patient seen and examined at the bedside. no acute events overnight. feels like he is having chills today. OBJECTIVE: Patient is a 68 year old male who presents to the ED on 07/18/2019 with left lower buttocks abscess. His past medical history includes bladder CA status post urostomy 2 years ago, diabetes, baseline renal insufficiency, hyperglycemia. Patient also has history of stroke, once in 2013 and again on 2014 when ASA was held for procedure. Vital Signs Period Temp Pulse Resp BP Sys/Argueta Pulse Ox Last 24 Hr 97.1 F-98.1 F 71-79 14-21 134-165/58-77 97-98 GENERAL: The patient is awake, alert, and fully oriented, in no acute distress. HEAD: Normal with no signs of trauma. EYES: PERRL, extraocular movements intact, sclera anicteric, conjunctiva clear. No ptosis. ENT: Ears normal, nares patent, oropharynx clear without exudates, moist mucous membranes. NECK: Trachea midline, full range of motion, supple. LUNGS: Breath sounds diminished bilaterally HEART: Regular rate and rhythm ABDOMEN: Soft, nontender, mildly distended, normoactive bowel sounds - urine stoma pink on right lower quadrant EXTREMITIES: no edema. NEUROLOGICAL: Normal speech, gait not observed. ambulates with a cane PSYCH: Normal mood, normal affect. SKIN: left lower buttocks abscess, drainage, painful to palpation Laboratory Results - last 24 hr 07/19/19 07/19/19 07/19/19 11:41 15:55 15:55 WBC 10.1 H RBC 3.65 L Hgb 10.0 L Hct 30.2 L MCV 82.8 MCH 27.5 MCHC 33.2 RDW 15.8 Plt Count 173 MPV 7.9 Absolute Neuts (auto) 8.5 H Neutrophils % 84.3 H Lymphocytes % 5.7 L D Monocytes % 6.7 Eosinophils % 2.8 Basophils % 0.5 Nucleated RBC % 0 Sodium 143 Potassium 3.7 Chloride 120 H Carbon Dioxide 16 L Anion Gap 8 BUN 92.7 H Creatinine 3.5 H Est GFR (CKD-EPI)AfAm 19.35 Est GFR (CKD-EPI)NonAf 16.69 POC Glucometer 173 Random Glucose 254 H Calcium 8.1 L Phosphorus Magnesium 2.4 Total Bilirubin 0.4 AST 10 L ALT 18 Alkaline Phosphatase 62 Total Protein 5.7 L Albumin 2.5 L 07/19/19 07/19/19 07/20/19 17:31 22:08 06:25 WBC 11.1 H RBC 4.23 Hgb 11.7 Hct 34.7 L MCV 82.0 MCH 27.6 MCHC 33.6 RDW 15.8 Plt Count 203 MPV 8.1 Absolute Neuts (auto) 9.5 H Neutrophils % 85.3 H Lymphocytes % 5.9 L Monocytes % 5.1 Eosinophils % 3.1 Basophils % 0.6 Nucleated RBC % 0 Sodium Potassium Chloride Carbon Dioxide Anion Gap BUN Creatinine Est GFR (CKD-EPI)AfAm Est GFR (CKD-EPI)NonAf POC Glucometer 297 143 Random Glucose Calcium Phosphorus Magnesium Total Bilirubin AST ALT Alkaline Phosphatase Total Protein Albumin 07/20/19 07/20/19 06:25 06:41 WBC RBC Hgb Hct MCV MCH MCHC RDW Plt Count MPV Absolute Neuts (auto) Neutrophils % Lymphocytes % Monocytes % Eosinophils % Basophils % Nucleated RBC % Sodium 143 Potassium 3.7 Chloride 117 H Carbon Dioxide 16 L Anion Gap 10 BUN 78.8 H Creatinine 3.6 H Est GFR (CKD-EPI)AfAm 18.70 Est GFR (CKD-EPI)NonAf 16.14 POC Glucometer 234 Random Glucose 239 H Calcium 8.6 Phosphorus 2.7 Magnesium 2.2 Total Bilirubin 0.6 AST 14 L ALT 22 Alkaline Phosphatase 76 Total Protein 7.0 Albumin 3.1 L Active Medications Generic Name Dose Route Start Last Admin Trade Name Freq PRN Reason Stop Dose Admin Albuterol/Ipratropium 1 amp 07/18/19 15:19 Duoneb - NEB Q6H PRN SHORTNESS OF BREATH Aspirin 81 mg 07/19/19 10:00 07/19/19 09:13 Ecotrin - PO 81 mg DAILY [facility]EL Administration Atorvastatin Calcium 10 mg 07/18/19 22:00 07/19/19 22:26 Lipitor - PO 10 mg HS [facility]ANEL Administration Budesonide/Formoterol Fumarate 1 puff 07/18/19 22:00 07/19/19 22:32 Symbicort 160/4.5mcg - IH 1 puff BID [facility]ANEL Administration Cholecalciferol 1,000 unit 07/19/19 10:00 07/19/19 09:15 Vitamin D3 - PO 1,000 unit DAILY [facility]ANEL Administration Cyanocobalamin 1,000 mcg 07/19/19 10:00 07/19/19 10:34 Vitamin B12 - PO 1,000 mcg DAILY [facility]ANEL Administration Doxazosin Mesylate 4 mg 07/19/19 10:00 07/19/19 10:34 Cardura - PO 4 mg DAILY [facility]EL Administration Gabapentin 300 mg 07/19/19 10:00 07/19/19 09:14 Neurontin - PO 300 mg DAILY [facility] Administration Heparin Sodium (Porcine) 5,000 unit 07/18/19 22:00 07/20/19 06:31 Heparin - SQ 5,000 unit TID [facility]ANEL Administration Hydralazine HCl 10 mg 07/18/19 22:00 07/19/19 22:25 Apresoline - PO 10 mg BID [facility]EL Administration Sodium Bicarbonate 150 meq/ 1,150 mls @ 100 mls/hr 07/18/19 15:15 07/20/19 00 :06 Dextrose IV 100 mls/hr Q10H [facility] Administration Piperacillin Sod/Tazobactam 50 mls @ 100 mls/hr 07/19/19 18:00 07/20/19 01:13 Sod 2.25 gm/ Dextrose IVPB 100 mls/hr Q8H-IV [facility]EL Administration Protocol Insulin Aspart 25 units 07/18/19 16:30 07/20/19 06:46 Novolog SQ 25 units BID@0700,1630 [facility] Administration Insulin Aspart 1 vial 07/19/19 09:33 07/20/19 06:47 Novolog Vial Sliding Scale - SQ 4 units ACHS [facility]EL Administration Protocol Insulin Detemir 30 units 07/18/19 22:00 07/19/19 22:31 Levemir Vial SQ 30 units HS [facility] Administration Ondansetron HCl 4 mg 07/19/19 08:44 07/19/19 09:16 Zofran Injection IVPUSH 4 mg Q6H PRN Administration NAUSEA Oxycodone HCl 5 mg 07/19/19 09:27 07/20/19 01:40 Roxicodone - PO 5 mg Q6H PRN Administration PAIN LEVEL 4 - 6 Oxycodone HCl 10 mg 07/19/19 09:28 07/19/19 17:40 Roxicodone - PO 10 mg Q6H PRN Administration PAIN LEVEL 7 - 10 ASSESSMENT/PLAN: Problem List - Problems (1) Abscess of buttock, left Assessment/Plan: left buttock abscess surgical evaluation requested will send for soft tissue ultrasound to further evaluate extent of abscess. culture of abscess sent and pending. On Zosyn day #2 tighter control of blood sugars pain control with oxycodone prn with bowel regimen HIV test pending id following Code(s): L02.31 - CUTANEOUS ABSCESS OF BUTTOCK (2) Acute renal insufficiency Assessment/Plan: seen by renal renal dose meds on bicarb drip Code(s): N28.9 - DISORDER OF KIDNEY AND URETER, UNSPECIFIED (3) Morbid obesity Assessment/Plan: outpatient follow up once acute issues are resolved Code(s): E66.01 - MORBID (SEVERE) OBESITY DUE TO EXCESS CALORIES (4) ARF (acute renal failure) Code(s): N17.9 - ACUTE KIDNEY FAILURE, UNSPECIFIED Qualifiers: Acute renal failure type: unspecified Qualified Code(s): N17.9 - Acute kidney failure, unspecified (5) Acute on chronic kidney failure Code(s): N17.9 - ACUTE KIDNEY FAILURE, UNSPECIFIED; N18.9 - CHRONIC KIDNEY DISEASE, UNSPECIFIED Qualifiers: Acute renal failure type: unspecified Chronic kidney disease stage: stage 4 (severe) Qualified Code(s): N17.9 - Acute kidney failure, unspecified; N18.4 - Chronic kidney disease, stage 4 (severe) (6) COPD (chronic obstructive pulmonary disease) Assessment/Plan: not in acute exacerbation, patient told in past that he may or may not have copd tolerating room air per ct imaging, no COPD seen or any other acute pathology cpap for marlon Code(s): J44.9 - CHRONIC OBSTRUCTIVE PULMONARY DISEASE, UNSPECIFIED (7) Diabetes Assessment/Plan: [id number] pending novolog 25 bid, novolog ac/hs based on bgms and levemir 30 hs goal is to keep bgms <180 fasting diabetic diet Code(s): E11.9 - TYPE 2 DIABETES MELLITUS WITHOUT COMPLICATIONS (8) Morbid obesity Assessment/Plan: outpatient follow up once acute issues are resolved Code(s): E66.01 - MORBID (SEVERE) OBESITY DUE TO EXCESS CALORIES (9) History of CVA (cerebrovascular accident) Assessment/Plan: cva 2013 and 2014 on asa and lipitor lipid panel pending Code(s): Z86.73 - PRSNL HX OF TIA (TIA), AND CEREB INFRC W/O RESID DEFICITS (10) MARLON (obstructive sleep apnea) Assessment/Plan: on cpap at night, but refused to wear overnight encouraged to use Code(s): G47.33 - OBSTRUCTIVE SLEEP APNEA (ADULT) (PEDIATRIC) (11) Prophylactic measure Assessment/Plan: physical therapy protonix heparin bowel regimen: colace incentive spriometer full code Code(s): Z29.9 - ENCOUNTER FOR PROPHYLACTIC MEASURES, UNSPECIFIED (12) DVT prophylaxis Assessment/Plan: heparin tid Code(s): Z29.9 - ENCOUNTER FOR PROPHYLACTIC MEASURES, UNSPECIFIED Visit type - Emergency Visit Emergency Visit: Yes ED Registration Date: 07/18/19 Care time: The patient presented to the Emergency Department on the above date and was hospitalized for further evaluation of their emergent condition. - New Patient This patient is new to me today: No - Critical Care Critical Care patient: No - Discharge Referral Referred to [facility] No
[2019-07-20] MEDS: CYANOCOBALAMIN 1,000 MCG TABLET (FP) PO SCH (09:37)
[2019-07-20] MEDS: hydrALAZINE HCL 10 MG TABLET PO SCH ×2 (09:37→21:08)
[2019-07-20] MEDS: ASPIRIN COATED 81 MG TABLET.EC PO SCH (09:38)
[2019-07-20] MEDS: DOXAZOSIN MESYLATE 4 MG TABLET PO SCH (09:38)
[2019-07-20] MEDS: CHOLECALCIFEROL (VIT D3) 1,000 UNIT (25 MCG) TABLET PO SCH (09:39)
[2019-07-20] MEDS: GABAPENTIN 300 MG CAPSULE (FP) PO SCH (09:39)
[2019-07-20] MEDS: oxyCODONE HCL 5 MG TABLET PO PRN (09:46)
--- NOTE | 2019-07-20 10:26 | PN ---
Progress Note (short form) - Note Progress Note: Breathing feels OK. Minimal use of CPAP overnight. Going for US. Intake & Output 07/17/19 07/18/19 07/19/19 07/20/19 23:59 23:59 23:59 23:59 Intake Total 2250 2500 700 Output Total 850 3400 1375 Balance 1400 -900 -675 Weight 289 lb 14.4 oz Last Vital Signs Temp Pulse Resp BP Pulse Ox 98.1 F 78 20 149/74 97 07/20/19 06:00 07/20/19 06:00 07/20/19 06:00 07/20/19 06:00 07/20/19 08:12 Active Medications Albuterol/Ipratropium (Duoneb -) 1 amp NEB Q6H PRN PRN Reason: SHORTNESS OF BREATH Aspirin (Ecotrin -) 81 mg PO DAILY [facility] Last Admin: 07/20/19 09:38 Dose: 81 mg Atorvastatin Calcium (Lipitor -) 10 mg PO HS [facility] Last Admin: 07/19/19 22:26 Dose: 10 mg Budesonide/Formoterol Fumarate (Symbicort 160/4.5mcg -) 1 puff IH BID [facility] Last Admin: 07/19/19 22:32 Dose: 1 puff Cholecalciferol (Vitamin D3 -) 1,000 unit PO DAILY [facility] Last Admin: 07/20/19 09:39 Dose: 1,000 unit Cyanocobalamin (Vitamin B12 -) 1,000 mcg PO DAILY [facility] Last Admin: 07/20/19 09:37 Dose: 1,000 mcg Docusate Sodium (Colace -) 100 mg PO TID [facility] Doxazosin Mesylate (Cardura -) 4 mg PO DAILY [facility] Last Admin: 07/20/19 09:38 Dose: 4 mg Gabapentin (Neurontin -) 300 mg PO DAILY [facility] Last Admin: 07/20/19 09:39 Dose: 300 mg Heparin Sodium (Porcine) (Heparin -) 5,000 unit SQ TID [facility] Last Admin: 07/20/19 06:31 Dose: 5,000 unit Hydralazine HCl (Apresoline -) 10 mg PO BID [facility] Last Admin: 07/20/19 09:37 Dose: 10 mg Sodium Bicarbonate 150 meq/ (Dextrose) 1,150 mls @ 100 mls/hr IV Q10H [facility] Last Admin: 07/20/19 00:06 Dose: 100 mls/hr Piperacillin Sod/Tazobactam (Sod 2.25 gm/ Dextrose) 50 mls @ 100 mls/hr IVPB Q8H-IV [facility]; Protocol Last Admin: 07/20/19 09:40 Dose: 100 mls/hr Insulin Aspart (Novolog) 25 units SQ BID@0700,1630 [facility] Last Admin: 07/20/19 06:46 Dose: 25 units Insulin Aspart (Novolog Vial Sliding Scale -) 1 vial SQ ACHS [facility]; Protocol Last Admin: 07/20/19 06:47 Dose: 4 units Insulin Detemir (Levemir Vial) 30 units SQ HS [facility] Last Admin: 07/19/19 22:31 Dose: 30 units Ondansetron HCl (Zofran Injection) 4 mg IVPUSH Q6H PRN PRN Reason: NAUSEA Last Admin: 07/19/19 09:16 Dose: 4 mg Oxycodone HCl (Roxicodone -) 5 mg PO Q6H PRN PRN Reason: PAIN LEVEL 4 - 6 Last Admin: 07/20/19 01:40 Dose: 5 mg Oxycodone HCl (Roxicodone -) 10 mg PO Q6H PRN PRN Reason: PAIN LEVEL 7 - 10 Last Admin: 07/20/19 09:46 Dose: 10 mg Pantoprazole Sodium (Protonix -) 40 mg PO DAILY [facility] Polyethylene Glycol (Miralax (For Daily Use) -) 17 gm PO DAILY [facility] Senna (Senna -) 1 tab PO [facility] Constitutional: Yes: No Distress, Calm Eyes: Yes: Conjunctiva Clear, EOM Intact HENT: Yes: Atraumatic, Normocephalic Neck: Yes: Supple, Trachea Midline Cardiovascular: Yes: Regular Rate and Rhythm Respiratory: Yes: CTA Bilaterally, Diminished. No: Accessory Muscle Use, Rales , Rhonchi, SOB, SOB on Exertion, Stridor, Tachypnea, Wheezes ...Inspection: Yes: WNL ...Clubbing: No Gastrointestinal: Yes: Normal Bowel Sounds, Soft, Abdomen, Obese Renal/: Yes: WNL Musculoskeletal: Yes: Other (Let buttock Abscess ) Extremities: Yes: WNL Edema: No Peripheral Pulses WNL: Yes Integumentary: Yes: Other (left buttock ) Neurological: Yes: WNL, Alert, Oriented ...Motor Strength: WNL Psychiatric: Yes: WNL, Alert, Oriented Labs: Laboratory Results - last 24 hr 07/19/19 07/19/19 07/19/19 11:41 15:55 15:55 WBC 10.1 H RBC 3.65 L Hgb 10.0 L Hct 30.2 L MCV 82.8 MCH 27.5 MCHC 33.2 RDW 15.8 Plt Count 173 MPV 7.9 Absolute Neuts (auto) 8.5 H Neutrophils % 84.3 H Lymphocytes % 5.7 L D Monocytes % 6.7 Eosinophils % 2.8 Basophils % 0.5 Nucleated RBC % 0 Sodium 143 Potassium 3.7 Chloride 120 H Carbon Dioxide 16 L Anion Gap 8 BUN 92.7 H Creatinine 3.5 H Est GFR (CKD-EPI)AfAm 19.35 Est GFR (CKD-EPI)NonAf 16.69 POC Glucometer 173 Random Glucose 254 H Calcium 8.1 L Phosphorus Magnesium 2.4 Total Bilirubin 0.4 AST 10 L ALT 18 Alkaline Phosphatase 62 Total Protein 5.7 L Albumin 2.5 L 07/19/19 07/19/19 07/20/19 17:31 22:08 06:25 WBC 11.1 H RBC 4.23 Hgb 11.7 Hct 34.7 L MCV 82.0 MCH 27.6 MCHC 33.6 RDW 15.8 Plt Count 203 MPV 8.1 Absolute Neuts (auto) 9.5 H Neutrophils % 85.3 H Lymphocytes % 5.9 L Monocytes % 5.1 Eosinophils % 3.1 Basophils % 0.6 Nucleated RBC % 0 Sodium Potassium Chloride Carbon Dioxide Anion Gap BUN Creatinine Est GFR (CKD-EPI)AfAm Est GFR (CKD-EPI)NonAf POC Glucometer 297 143 Random Glucose Calcium Phosphorus Magnesium Total Bilirubin AST ALT Alkaline Phosphatase Total Protein Albumin 07/20/19 07/20/19 06:25 06:41 WBC RBC Hgb Hct MCV MCH MCHC RDW Plt Count MPV Absolute Neuts (auto) Neutrophils % Lymphocytes % Monocytes % Eosinophils % Basophils % Nucleated RBC % Sodium 143 Potassium 3.7 Chloride 117 H Carbon Dioxide 16 L Anion Gap 10 BUN 78.8 H Creatinine 3.6 H Est GFR (CKD-EPI)AfAm 18.70 Est GFR (CKD-EPI)NonAf 16.14 POC Glucometer 234 Random Glucose 239 H Calcium 8.6 Phosphorus 2.7 Magnesium 2.2 Total Bilirubin 0.6 AST 14 L ALT 22 Alkaline Phosphatase 76 Total Protein 7.0 Albumin 3.1 L Problem List - Problems (1) Morbid obesity Code(s): E66.01 - MORBID (SEVERE) OBESITY DUE TO EXCESS CALORIES (2) Abscess of buttock, left Code(s): L02.31 - CUTANEOUS ABSCESS OF BUTTOCK (3) Anemia Code(s): D64.9 - ANEMIA, UNSPECIFIED (4) Chronic kidney disease Code(s): N18.9 - CHRONIC KIDNEY DISEASE, UNSPECIFIED Qualifiers: Chronic kidney disease stage: stage 4 (severe) Qualified Code(s): N18.4 - Chronic kidney disease, stage 4 (severe) (5) Cough Code(s): R05 - COUGH (6) Diabetes Code(s): E11.9 - TYPE 2 DIABETES MELLITUS WITHOUT COMPLICATIONS Qualifiers: Diabetes mellitus type: type 2 Diabetes mellitus intermission coordinator insulin use: with prison use Diabetes mellitus complication status: with kidney complications Diabetes mellitus complication detail: with chronic kidney disease Chronic kidney disease stage: stage 4 (severe) Qualified Code(s): E11.22 - Type 2 diabetes mellitus with diabetic chronic kidney disease; N18.4 - Chronic kidney disease, stage 4 (severe); Z79.4 - [facility] (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 Assessment/Plan Encouraged use of CPAP @ 13 cm H2O O2 as needed ABX per ID Local wound care VTE prophylaxis BD TX PRN Dr Rios Problem List - Problems (1) Morbid obesity Code(s): E66.01 - MORBID (SEVERE) OBESITY DUE TO EXCESS CALORIES (2) Abscess of buttock, left Code(s): L02.31 - CUTANEOUS ABSCESS OF BUTTOCK (3) Anemia Code(s): D64.9 - ANEMIA, UNSPECIFIED (4) Chronic kidney disease Code(s): N18.9 - CHRONIC KIDNEY DISEASE, UNSPECIFIED Qualifiers: Chronic kidney disease stage: stage 4 (severe) Qualified Code(s): N18.4 - Chronic kidney disease, stage 4 (severe) (5) Cough Code(s): R05 - COUGH (6) Diabetes Code(s): E11.9 - TYPE 2 DIABETES MELLITUS WITHOUT COMPLICATIONS Qualifiers: Diabetes mellitus type: type 2 Diabetes mellitus intermission coordinator insulin use: with intermission coordinator use Diabetes mellitus complication status: with kidney complications Diabetes mellitus complication detail: with chronic kidney disease Chronic kidney disease stage: stage 4 (severe) Qualified Code(s): E11.22 - Type 2 diabetes mellitus with diabetic chronic kidney disease; N18.4 - Chronic kidney disease, stage 4 (severe); Z79.4 - [facility] (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
--- NOTE | 2019-07-20 10:52 | PN ---
Progress Note (short form) - Note Progress Note: Renal follow up for MEKA on CKD Seen and examined at the bedside awake and alert feels better still has discomfort on buttock no chest pain denies any shortness of breath Vital Signs Temperature 98.1 F 07/20/19 06:00 Pulse Rate 78 07/20/19 06:00 Respiratory Rate 20 07/20/19 06:00 Blood Pressure 149/74 07/20/19 06:00 O2 Sat by Pulse Oximetry (%) 97 07/20/19 08:12 Intake & Output 07/17/19 07/18/19 07/19/19 07/20/19 23:59 23:59 23:59 23:59 Intake Total 2250 2500 700 Output Total 850 3400 1375 Balance 1400 -900 -675 Weight 131.496 kg NAD RRR CTA no rales or wheeze soft, obese, NT/ND + trace to mild edema in LE no CVA tenderness 07/20/19 06:25 07/20/19 06:25 Current Medications Albuterol/Ipratropium (Duoneb -) 1 amp NEB Q6H PRN PRN Reason: SHORTNESS OF BREATH Aspirin (Ecotrin -) 81 mg PO DAILY [facility] Last Admin: 07/20/19 09:38 Dose: 81 mg Atorvastatin Calcium (Lipitor -) 10 mg PO HS [facility] Last Admin: 07/19/19 22:26 Dose: 10 mg Budesonide/Formoterol Fumarate (Symbicort 160/4.5mcg -) 1 puff IH BID [facility] Last Admin: 07/19/19 22:32 Dose: 1 puff Cholecalciferol (Vitamin D3 -) 1,000 unit PO DAILY [facility] Last Admin: 07/20/19 09:39 Dose: 1,000 unit Cyanocobalamin (Vitamin B12 -) 1,000 mcg PO DAILY [facility] Last Admin: 07/20/19 09:37 Dose: 1,000 mcg Docusate Sodium (Colace -) 100 mg PO TID [facility] Doxazosin Mesylate (Cardura -) 4 mg PO DAILY [facility] Last Admin: 07/20/19 09:38 Dose: 4 mg Gabapentin (Neurontin -) 300 mg PO DAILY [facility] Last Admin: 07/20/19 09:39 Dose: 300 mg Heparin Sodium (Porcine) (Heparin -) 5,000 unit SQ TID [facility] Last Admin: 07/20/19 06:31 Dose: 5,000 unit Hydralazine HCl (Apresoline -) 10 mg PO BID [facility] Last Admin: 07/20/19 09:37 Dose: 10 mg Sodium Bicarbonate 150 meq/ (Dextrose) 1,150 mls @ 100 mls/hr IV Q10H [facility] Last Admin: 07/20/19 00:06 Dose: 100 mls/hr Piperacillin Sod/Tazobactam (Sod 2.25 gm/ Dextrose) 50 mls @ 100 mls/hr IVPB Q8H-IV [facility]; Protocol Last Admin: 07/20/19 09:40 Dose: 100 mls/hr Insulin Aspart (Novolog) 25 units SQ BID@0700,1630 [facility] Last Admin: 07/20/19 06:46 Dose: 25 units Insulin Aspart (Novolog Vial Sliding Scale -) 1 vial SQ ACHS [facility]; Protocol Last Admin: 07/20/19 06:47 Dose: 4 units Insulin Detemir (Levemir Vial) 30 units SQ HS [facility] Last Admin: 07/19/19 22:31 Dose: 30 units Ondansetron HCl (Zofran Injection) 4 mg IVPUSH Q6H PRN PRN Reason: NAUSEA Last Admin: 07/19/19 09:16 Dose: 4 mg Oxycodone HCl (Roxicodone -) 5 mg PO Q6H PRN PRN Reason: PAIN LEVEL 4 - 6 Last Admin: 07/20/19 01:40 Dose: 5 mg Oxycodone HCl (Roxicodone -) 10 mg PO Q6H PRN PRN Reason: PAIN LEVEL 7 - 10 Last Admin: 07/20/19 09:46 Dose: 10 mg Pantoprazole Sodium (Protonix -) 40 mg PO DAILY [facility] Polyethylene Glycol (Miralax (For Daily Use) -) 17 gm PO DAILY [facility] Senna (Senna -) 1 tab PO HS [facility] 68 year old gentleman with history of CKD stage 4, urethral diverison with ileual conduit, COPD, hypertension, hyperlipideima who presented from home with perirectal abcess with MEKA on CKD. 1. Acute on chronic renal insufficiency 2. CKD stage 4 3. Acute on Chronic metabolic acidosis 4. Anemia 5. Perirectal abcess Renal function improving with IV hydration. Acidosis also improved. Will decrease rate of IVF today and start oral bicarbonate in addition to IV. 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
[2019-07-20] MEDS: BUDESONIDE/FORMETEROL FUMARATE 160/4.5 mcg INHALER IH SCH ×2 (14:13→21:09)
[2019-07-20] MEDS: SODIUM BICARBONATE 650 MG TABLET PO SCH ×2 (14:14→21:08)
[2019-07-20] MEDS: DOCUSATE SODIUM 100 MG CAPSULE (FP) PO SCH ×2 (14:14→21:08)
[2019-07-20] MEDS: SENNOSIDES 8.6MG TABLET (FP) PO SCH (21:08)
[2019-07-20] MEDS: ATORVASTATIN CA 10 MG TABLET (FP) PO SCH (21:08)
[2019-07-20] MEDS: INSULIN (LEVEMIR) 100 UNITS/ML UNITS SQ SCH (21:09)
[2019-07-21] MEDS: PIPERACILLIN/TAZOB 2.25 GM 2.25 GM in DEXTROSE 5%-WATER - 50 ML IVPB SCH ×3 (02:55→18:38)
[2019-07-21] MEDS: SODIUM BICARBONATE 8.4% - 150 MEQ in DEXTROSE 5%-WATER - 1,000 ML IV SCH ×2 (02:55→14:28)
[2019-07-21] MEDS: HEPARIN NA (PORCINE) 5,000 UNITS/ML 1ML VIAL SQ SCH ×3 (05:39→21:33)
[2019-07-21] MEDS: DOCUSATE SODIUM 100 MG CAPSULE (FP) PO SCH ×3 (05:39→21:33)
[2019-07-21 06:01] LABS: BASO % 0.5 % (0-2.0); EOS % 4.2 % (0-4.5); HEMOGLOBIN 10.2 GM/dL (11.7-16.9); LYMPH % 8.3 % (8-40); MCH 27.7 pg (25.7-33.7); MEAN CELL VOLUME 81.6 fl (80-96); MEAN PLT VOLUME 8.1 fl (7.5-11.1); MONO % 8.4 % (3.8-10.2); NEUT % 78.6 % (42.8-82.8); PLATELET COUNT 186 K/MM3 (134-434); RBC 3.67 M/mm3 (4.00-5.60); RDW 15.7 % (11.9-15.9); WHITE BLOOD COUNT 8.8 K/mm3 (4.0-10.0)
[2019-07-21] MEDS: INSULIN SLIDING SCALE (NOVOLOG) 1 VIAL SQ SCH ×4 (06:03→23:19)
[2019-07-21 06:51] LABS: ALBUMIN 2.6 g/dl (3.4-5.0); BILIRUBIN,TOTAL 0.4 mg/dL (0.2-1); BLOOD UREA NITROGEN 66.3 mg/dL (7-18); CALCIUM 8.1 mg/dL (8.5-10.1); CREATININE 3.1 mg/dL (0.55-1.3); POTASSIUM 3.5 mmol/L (3.5-5.1); TOT PROT 5.9 g/dl (6.4-8.2)
[2019-07-21] MEDS ORDERED: POLYETHYLENE GLYCOL 3350 119 GM BTL PO SCH (10:00)
[2019-07-21] MEDS ORDERED: PANTOPRAZOLE 40 MG TABLET (FP) PO SCH (10:00)
[2019-07-21] MEDS ORDERED: PIPERACILLIN/TAZOBACTAM 2.25 GM VIAL IVPB ONE ×2 (10:13→18:36)
[2019-07-21] MEDS ORDERED: DEXTROSE 5%-WATER - 50 ML IVPB ONE ×2 (10:14→18:36)
[2019-07-21] MEDS: SODIUM BICARBONATE 650 MG TABLET PO SCH ×2 (10:16→21:33)
[2019-07-21] MEDS: CHOLECALCIFEROL (VIT D3) 1,000 UNIT (25 MCG) TABLET PO SCH (10:16)
[2019-07-21] MEDS: GABAPENTIN 300 MG CAPSULE (FP) PO SCH (10:16)
[2019-07-21] MEDS: ASPIRIN COATED 81 MG TABLET.EC PO SCH (10:17)
[2019-07-21] MEDS: BUDESONIDE/FORMETEROL FUMARATE 160/4.5 mcg INHALER IH SCH ×2 (10:18→23:19)
--- NOTE | 2019-07-21 11:02 | PN ---
Progress Note, Physician History of Present Illness: patient stable but with pain in the buttocks - Current Medication List Current Medications: Active Medications Albuterol/Ipratropium (Duoneb -) 1 amp NEB Q6H PRN PRN Reason: SHORTNESS OF BREATH Aspirin (Ecotrin -) 81 mg PO DAILY [facility] Last Admin: 07/21/19 10:17 Dose: 81 mg Atorvastatin Calcium (Lipitor -) 10 mg PO HS [facility] Last Admin: 07/20/19 21:08 Dose: 10 mg Budesonide/Formoterol Fumarate (Symbicort 160/4.5mcg -) 1 puff IH BID [facility] Last Admin: 07/21/19 10:18 Dose: 1 puff Cholecalciferol (Vitamin D3 -) 1,000 unit PO DAILY [facility] Last Admin: 07/21/19 10:16 Dose: 1,000 unit Cyanocobalamin (Vitamin B12 -) 1,000 mcg PO DAILY [facility] Last Admin: 07/20/19 09:37 Dose: 1,000 mcg Docusate Sodium (Colace -) 100 mg PO TID [facility] Last Admin: 07/21/19 05:39 Dose: 100 mg Doxazosin Mesylate (Cardura -) 4 mg PO DAILY [facility] Last Admin: 07/20/19 09:38 Dose: 4 mg Gabapentin (Neurontin -) 300 mg PO DAILY [facility] Last Admin: 07/21/19 10:16 Dose: 300 mg Heparin Sodium (Porcine) (Heparin -) 5,000 unit SQ TID [facility] Last Admin: 07/21/19 05:39 Dose: 5,000 unit Hydralazine HCl (Apresoline -) 10 mg PO BID [facility] Last Admin: 07/20/19 21:08 Dose: 10 mg Piperacillin Sod/Tazobactam (Sod 2.25 gm/ Dextrose) 50 mls @ 100 mls/hr IVPB Q8H-IV [facility]; Protocol Last Admin: 07/21/19 02:55 Dose: Not Given Sodium Bicarbonate 150 meq/ (Dextrose) 1,150 mls @ 84 mls/hr IV Q13H [facility] Last Admin: 07/21/19 02:55 Dose: Not Given Insulin Aspart (Novolog Vial Sliding Scale -) 1 vial SQ [facility]; Protocol Last Admin: 07/21/19 06:03 Dose: Not Given Insulin Detemir (Levemir Vial) 30 units SQ [facility] Last Admin: 07/20/19 21:09 Dose: 30 units Ondansetron HCl (Zofran Injection) 4 mg IVPUSH Q6H PRN PRN Reason: NAUSEA Last Admin: 07/19/19 09:16 Dose: 4 mg Oxycodone HCl (Roxicodone -) 5 mg PO Q6H PRN PRN Reason: PAIN LEVEL 4 - 6 Last Admin: 07/20/19 01:40 Dose: 5 mg Oxycodone HCl (Roxicodone -) 10 mg PO Q6H PRN PRN Reason: PAIN LEVEL 7 - 10 Last Admin: 07/20/19 09:46 Dose: 10 mg Pantoprazole Sodium (Protonix -) 40 mg PO DAILY [facility] Last Admin: 07/21/19 10:16 Dose: 40 mg Polyethylene Glycol (Miralax (For Daily Use) -) 17 gm PO DAILY [facility] Last Admin: 07/21/19 10:18 Dose: 17 gm Senna (Senna -) 1 tab PO [facility] Last Admin: 07/20/19 21:08 Dose: 1 tab Sodium Bicarbonate (Sodium Bicarbonate -) 650 mg PO BID [facility] Last Admin: 07/21/19 10:16 Dose: 650 mg - Objective Vital Signs: Vital Signs Temperature 98.4 F 07/21/19 09:44 Pulse Rate 71 07/21/19 09:44 Respiratory Rate 18 07/21/19 09:44 Blood Pressure 162/82 07/21/19 09:44 O2 Sat by Pulse Oximetry (%) 99 07/21/19 09:00 Constitutional: Yes: No Distress, Calm HENT: Yes: Atraumatic, Normocephalic Cardiovascular: Yes: S1, S2 Respiratory: Yes: Regular, CTA Bilaterally Gastrointestinal: Yes: Normal Bowel Sounds, Soft Musculoskeletal: Yes: WNL Extremities: Yes: WNL Neurological: Yes: Alert, Oriented Psychiatric: Yes: Alert, Oriented Labs: CBC, BMP 07/21/19 05:06 07/21/19 05:06 Assessment/Plan 68 year old gentleman with history of CKD stage 4, urethral diverison with ileual conduit, COPD, hypertension, hyperlipideima who presented from home with perirectal abcess with MEKA on CKD. 1. Acute on chronic renal insufficiency 2. CKD stage 4 3. Acute on Chronic metabolic acidosis 4. Anemia 5. Perirectal abcess site looks clean and dry plan we will continue abx await for wound cx rest as per the team
[2019-07-21] MEDS ORDERED: PT OWN MED DRAWER 7, Y5N ONE ×2 (11:30→21:28)
[2019-07-21] MEDS ORDERED: INSULIN (NOVOLOG) ASPART 100 UNITS/ML 10ML VIAL ONE (12:23)
[2019-07-21] MEDS: DOXAZOSIN MESYLATE 4 MG TABLET PO SCH (12:45)
[2019-07-21] MEDS: CYANOCOBALAMIN 1,000 MCG TABLET (FP) PO SCH (12:45)
[2019-07-21] MEDS: hydrALAZINE HCL 10 MG TABLET PO SCH ×2 (12:45→21:34)
--- NOTE | 2019-07-21 13:34 | PN ---
Progress Note (short form) - Note Progress Note: Renal follow up for MEKA on CKD Seen and examined at the bedside awake and alert feels better still has pain in buttock lost IV access Vital Signs Temperature 98.4 F 07/21/19 09:44 Pulse Rate 71 07/21/19 09:44 Respiratory Rate 18 07/21/19 09:44 Blood Pressure 162/82 07/21/19 09:44 O2 Sat by Pulse Oximetry (%) 97 07/21/19 12:01 Intake & Output 07/18/19 07/19/19 07/20/19 07/21/19 23:59 23:59 23:59 23:59 Intake Total 2250 2500 2300 100 Output Total 850 3400 2425 Balance 1400 -900 -125 100 Weight 131.496 kg NAD RRR CTA no rales or wheeze soft, obese, NT/ND + trace to mild edema in LE no CVA tenderness CBC, BMP 07/21/19 05:06 07/21/19 05:06 Current Medications Albuterol/Ipratropium (Duoneb -) 1 amp NEB Q6H PRN PRN Reason: SHORTNESS OF BREATH Aspirin (Ecotrin -) [address] [facility] Last Admin: 07/21/19 10:17 Dose: 81 mg Atorvastatin Calcium (Lipitor -) [address] [facility] Last Admin: 07/20/19 21:08 Dose: 10 mg Budesonide/Formoterol Fumarate (Symbicort 160/4.5mcg -) [address] [facility] Last Admin: 07/21/19 10:18 Dose: 1 puff Cholecalciferol (Vitamin D3 -) 1,[address] [facility] Last Admin: 07/21/19 10:16 Dose: 1,000 unit Cyanocobalamin (Vitamin B12 -) 1,[address] [facility] Last Admin: 07/21/19 12:45 Dose: 1,000 mcg Docusate Sodium (Colace -) [address] [facility] Last Admin: 07/21/19 05:39 Dose: 100 mg Doxazosin Mesylate (Cardura -) [address] [facility] Last Admin: 07/21/19 12:45 Dose: 4 mg Gabapentin (Neurontin -) [address] [facility] Last Admin: 07/21/19 10:16 Dose: 300 mg Heparin Sodium (Porcine) (Heparin -) 5,[address] [facility] Last Admin: 07/21/19 05:39 Dose: 5,000 unit Hydralazine HCl (Apresoline -) [address] [facility] Last Admin: 07/21/19 12:45 Dose: 10 mg Piperacillin Sod/Tazobactam (Sod 2.25 gm/ Dextrose) 50 mls @ 100 mls/hr IVPB Q8H-IV [facility]; Protocol Last Admin: 07/21/19 12:37 Dose: 100 mls/hr Sodium Bicarbonate 150 meq/ (Dextrose) 1,150 mls @ 84 mls/hr IV Q13H [facility] Last Admin: 07/21/19 02:55 Dose: Not Given Insulin Aspart (Novolog Vial Sliding Scale -) [address] [facility]; Protocol Last Admin: 07/21/19 12:17 Dose: 4 unit Insulin Detemir (Levemir Vial) [address] [facility] Last Admin: 07/20/19 21:09 Dose: 30 units Ondansetron HCl (Zofran Injection) 4 mg IVPUSH Q6H PRN PRN Reason: NAUSEA Last Admin: 07/19/19 09:16 Dose: 4 mg Oxycodone HCl (Roxicodone -) 5 mg PO Q6H PRN PRN Reason: PAIN LEVEL 4 - 6 Last Admin: 07/20/19 01:40 Dose: 5 mg Oxycodone HCl (Roxicodone -) 10 mg PO Q6H PRN PRN Reason: PAIN LEVEL 7 - 10 Last Admin: 07/20/19 09:46 Dose: 10 mg Pantoprazole Sodium (Protonix -) [address] [facility] Last Admin: 07/21/19 10:16 Dose: 40 mg Polyethylene Glycol (Miralax (For Daily Use) -) [address] [facility] Last Admin: 07/21/19 10:18 Dose: 17 gm Senna (Senna -) 1 tab PO [facility] Last Admin: 07/20/19 21:08 Dose: 1 tab Sodium Bicarbonate (Sodium Bicarbonate -) [address] [facility] Last Admin: 07/21/19 10:16 Dose: 650 mg 68 year old gentleman with history of CKD stage 4, urethral diverison with ileual conduit, COPD, hypertension, hyperlipideima who presented from home with perirectal abcess with MEKA on CKD. 1. Acute on chronic renal insufficiency 2. CKD stage 4 3. Acute on Chronic metabolic acidosis 4. Anemia 5. Perirectal abcess Renal function now improved to near baseline can d/c IVF Increase sodium bicarb to 650mg TID. can plan to give diuretics in next 24-48 hours if edema persists. 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
--- NOTE | 2019-07-21 14:31 | PN ---
Progress Note (short form) - Note Progress Note: Used CPAP overnight for a short period of time. Machine too loud. No CP. [place] SOB this AM but better now. Constitutional: Yes: No Distress, Calm Eyes: Yes: Conjunctiva Clear, EOM Intact HENT: Yes: Atraumatic, Normocephalic Neck: Yes: Supple, Trachea Midline Cardiovascular: Yes: Regular Rate and Rhythm Respiratory: Yes: CTA Bilaterally, Diminished. No: Accessory Muscle Use, Rales , Rhonchi, SOB, SOB on Exertion, Stridor, Tachypnea, Wheezes ...Inspection: Yes: WNL ...Clubbing: No Gastrointestinal: Yes: Normal Bowel Sounds, Soft, Abdomen, Obese Renal/: Yes: WNL Musculoskeletal: Yes: Other (Let buttock Abscess ) Extremities: Yes: WNL Edema: No Peripheral Pulses WNL: Yes Integumentary: Yes: Other (left buttock ) Neurological: Yes: WNL, Alert, Oriented ...Motor Strength: WNL Psychiatric: Yes: WNL, Alert, Oriented Labs: Laboratory Results - last 24 hr 07/19/19 07/19/19 07/19/19 11:41 15:55 15:55 WBC 10.1 H RBC 3.65 L Hgb 10.0 L Hct 30.2 L MCV 82.8 MCH 27.5 MCHC 33.2 RDW 15.8 Plt Count 173 MPV 7.9 Absolute Neuts (auto) 8.5 H Neutrophils % 84.3 H Lymphocytes % 5.7 L D Monocytes % 6.7 Eosinophils % 2.8 Basophils % 0.5 Nucleated RBC % 0 Sodium 143 Potassium 3.7 Chloride 120 H Carbon Dioxide 16 L Anion Gap 8 BUN 92.7 H Creatinine 3.5 H Est GFR (CKD-EPI)AfAm 19.35 Est GFR (CKD-EPI)NonAf 16.69 POC Glucometer 173 Random Glucose 254 H Calcium 8.1 L Phosphorus Magnesium 2.4 Total Bilirubin 0.4 AST 10 L ALT 18 Alkaline Phosphatase 62 Total Protein 5.7 L Albumin 2.5 L 07/19/19 07/19/19 07/20/19 17:31 22:08 06:25 WBC 11.1 H RBC 4.23 Hgb 11.7 Hct 34.7 L MCV 82.0 MCH 27.6 MCHC 33.6 RDW 15.8 Plt Count 203 MPV 8.1 Absolute Neuts (auto) 9.5 H Neutrophils % 85.3 H Lymphocytes % 5.9 L Monocytes % 5.1 Eosinophils % 3.1 Basophils % 0.6 Nucleated RBC % 0 Sodium Potassium Chloride Carbon Dioxide Anion Gap BUN Creatinine Est GFR (CKD-EPI)AfAm Est GFR (CKD-EPI)NonAf POC Glucometer 297 143 Random Glucose Calcium Phosphorus Magnesium Total Bilirubin AST ALT Alkaline Phosphatase Total Protein Albumin 07/20/19 07/20/19 06:25 06:41 WBC RBC Hgb Hct MCV MCH MCHC RDW Plt Count MPV Absolute Neuts (auto) Neutrophils % Lymphocytes % Monocytes % Eosinophils % Basophils % Nucleated RBC % Sodium 143 Potassium 3.7 Chloride 117 H Carbon Dioxide 16 L Anion Gap 10 BUN 78.8 H Creatinine 3.6 H Est GFR (CKD-EPI)AfAm 18.70 Est GFR (CKD-EPI)NonAf 16.14 POC Glucometer 234 Random Glucose 239 H Calcium 8.6 Phosphorus 2.7 Magnesium 2.2 Total Bilirubin 0.6 AST 14 L ALT 22 Alkaline Phosphatase 76 Total Protein 7.0 Albumin 3.1 L Problem List - Problems (1) Morbid obesity Code(s): E66.01 - MORBID (SEVERE) OBESITY DUE TO EXCESS CALORIES (2) Abscess of buttock, left Code(s): L02.31 - CUTANEOUS ABSCESS OF BUTTOCK (3) Anemia Code(s): D64.9 - ANEMIA, UNSPECIFIED (4) Chronic kidney disease Code(s): N18.9 - CHRONIC KIDNEY DISEASE, UNSPECIFIED Qualifiers: Chronic kidney disease stage: stage 4 (severe) Qualified Code(s): N18.4 - Chronic kidney disease, stage 4 (severe) (5) Cough Code(s): R05 - COUGH (6) Diabetes Code(s): E11.9 - TYPE 2 DIABETES MELLITUS WITHOUT COMPLICATIONS Qualifiers: Diabetes mellitus 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 Diabetes mellitus complication status: with kidney complications Diabetes mellitus complication detail: with chronic kidney disease Chronic kidney disease stage: stage 4 (severe) Qualified Code(s): E11.22 - Type 2 diabetes mellitus with diabetic chronic kidney disease; N18.4 - Chronic kidney disease, stage 4 (severe); Z79.4 - correction (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 Assessment/Plan Encouraged use of CPAP @ 13 cm H2O O2 as needed ABX per ID Local wound care VTE prophylaxis BD TX PRN Dr Rios Problem List - Problems (1) Morbid obesity Code(s): E66.01 - MORBID (SEVERE) OBESITY DUE TO EXCESS CALORIES (2) Abscess of buttock, left Code(s): L02.31 - CUTANEOUS ABSCESS OF BUTTOCK (3) Anemia Code(s): D64.9 - ANEMIA, UNSPECIFIED (4) Chronic kidney disease Code(s): N18.9 - CHRONIC KIDNEY DISEASE, UNSPECIFIED Qualifiers: Chronic kidney disease stage: stage 4 (severe) Qualified Code(s): N18.4 - Chronic kidney disease, stage 4 (severe) (5) Cough Code(s): R05 - COUGH (6) Diabetes Code(s): E11.9 - TYPE 2 DIABETES MELLITUS WITHOUT COMPLICATIONS Qualifiers: Diabetes mellitus type: type 2 Diabetes mellitus prison insulin use: with prison use Diabetes mellitus complication status: with kidney complications Diabetes mellitus complication detail: with chronic kidney disease Chronic kidney disease stage: stage 4 (severe) Qualified Code(s): E11.22 - Type 2 diabetes mellitus with diabetic chronic kidney disease; N18.4 - Chronic kidney disease, stage 4 (severe); Z79.4 - correction (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
--- NOTE | 2019-07-21 16:30 | PN ---
Physical Exam: SUBJECTIVE: Patient seen and examined at the bedside. states his pain is improving. OBJECTIVE: Patient is a 68 year old male who presents to the ED on 07/18/2019 with left lower buttocks abscess. His past medical history includes bladder CA status post urostomy 2 years ago, diabetes, baseline renal insufficiency, hyperglycemia. Patient also has history of stroke, once in 2013 and again on 2014 when ASA was held for procedure. Vital Signs Period Temp Pulse Resp BP Sys/Argueta Pulse Ox Last 24 Hr 98.3 F-98.6 F 71-80 17-21 135-176/70-93 97-99 GENERAL: The patient is awake, alert, and fully oriented, in no acute distress. HEAD: Normal with no signs of trauma. EYES: PERRL, extraocular movements intact, sclera anicteric, conjunctiva clear. No ptosis. ENT: Ears normal, nares patent, oropharynx clear without exudates, moist mucous membranes. NECK: Trachea midline, full range of motion, supple. LUNGS: Breath sounds diminished bilaterally HEART: Regular rate and rhythm ABDOMEN: Soft, nontender, mildly distended, normoactive bowel sounds - urine stoma pink on right lower quadrant EXTREMITIES: no edema. NEUROLOGICAL: Normal speech, gait not observed. ambulates with a cane PSYCH: Normal mood, normal affect. SKIN: left lower buttocks abscess drainage, painful to palpation Laboratory Results - last 24 hr 07/20/19 07/20/19 07/20/19 06:25 16:44 20:46 WBC RBC Hgb Hct MCV MCH MCHC RDW Plt Count MPV Absolute Neuts (auto) Neutrophils % Lymphocytes % Monocytes % Eosinophils % Basophils % Nucleated RBC % Sodium Potassium Chloride Carbon Dioxide Anion Gap BUN Creatinine Est GFR (CKD-EPI)AfAm Est GFR (CKD-EPI)NonAf POC Glucometer 137 197 Random Glucose Calcium Magnesium Total Bilirubin AST ALT Alkaline Phosphatase Total Protein Albumin HIV 1&2 Ag/Ab, 4th Gen Non reactive 07/21/19 07/21/19 07/21/19 05:06 05:06 05:32 WBC 8.8 RBC 3.67 L Hgb 10.2 L Hct 30.0 L MCV 81.6 MCH 27.7 MCHC 34.0 RDW 15.7 Plt Count 186 MPV 8.1 Absolute Neuts (auto) 7.0 Neutrophils % 78.6 Lymphocytes % 8.3 D Monocytes % 8.4 Eosinophils % 4.2 Basophils % 0.5 Nucleated RBC % 0 Sodium 145 Potassium 3.5 Chloride 117 H Carbon Dioxide 19 L Anion Gap 10 BUN 66.3 H Creatinine 3.1 H Est GFR (CKD-EPI)AfAm 22.41 Est GFR (CKD-EPI)NonAf 19.33 POC Glucometer 119 Random Glucose 127 H Calcium 8.1 L Magnesium 2.0 Total Bilirubin 0.4 AST 13 L ALT 19 Alkaline Phosphatase 65 Total Protein 5.9 L Albumin 2.6 L HIV 1&2 Ag/Ab, 4th Gen 07/21/19 10:28 WBC RBC Hgb Hct MCV MCH MCHC RDW Plt Count MPV Absolute Neuts (auto) Neutrophils % Lymphocytes % Monocytes % Eosinophils % Basophils % Nucleated RBC % Sodium Potassium Chloride Carbon Dioxide Anion Gap BUN Creatinine Est GFR (CKD-EPI)AfAm Est GFR (CKD-EPI)NonAf POC Glucometer 152 Random Glucose Calcium Magnesium Total Bilirubin AST ALT Alkaline Phosphatase Total Protein Albumin HIV 1&2 Ag/Ab, 4th Gen Active Medications Generic Name Dose Route Start Last Admin Trade Name Freq PRN Reason Stop Dose Admin Albuterol/Ipratropium 1 amp 07/18/19 15:19 Duoneb - NEB Q6H PRN SHORTNESS OF BREATH Aspirin 81 mg 07/19/19 10:00 07/21/19 10:17 Ecotrin - PO 81 mg DAILY SHANEL Administration Atorvastatin Calcium 10 mg 07/18/19 22:00 07/20/19 21:08 Lipitor - PO 10 mg HS SHANEL Administration Budesonide/Formoterol Fumarate 1 puff 07/18/19 22:00 07/21/19 10:18 Symbicort 160/4.5mcg - IH 1 puff BID SHANEL Administration Cholecalciferol 1,000 unit 07/19/19 10:00 07/21/19 10:16 Vitamin D3 - PO 1,000 unit DAILY SHANEL Administration Cyanocobalamin 1,000 mcg 07/19/19 10:00 07/21/19 12:45 Vitamin B12 - PO 1,000 mcg DAILY SHANEL Administration Docusate Sodium 100 mg 07/20/19 14:00 07/21/19 14:29 Colace - PO 100 mg TID SHANEL Administration Doxazosin Mesylate 4 mg 07/19/19 10:00 07/21/19 12:45 Cardura - PO 4 mg DAILY SHANEL Administration Gabapentin 300 mg 07/19/19 10:00 07/21/19 10:16 Neurontin - PO 300 mg DAILY SHANEL Administration Heparin Sodium (Porcine) 5,000 unit 07/18/19 22:00 07/21/19 14:29 Heparin - SQ 5,000 unit TID SHANEL Administration Hydralazine HCl 10 mg 07/18/19 22:00 07/21/19 12:45 Apresoline - PO 10 mg BID SHANEL Administration Piperacillin Sod/Tazobactam 50 mls @ 100 mls/hr 07/19/19 18:00 07/21/19 12:37 Sod 2.25 gm/ Dextrose IVPB 100 mls/hr Q8H-IV SHANEL Administration Protocol Sodium Bicarbonate 150 meq/ 1,150 mls @ 84 mls/hr 07/20/19 11:30 07/21/19 14: 28 Dextrose IV Not Given Q13H SHANEL Insulin Aspart 1 vial 07/20/19 22:00 07/21/19 12:17 Novolog Vial Sliding Scale - SQ 4 unit ACHS SHANEL Administration Protocol Insulin Detemir 30 units 07/18/19 22:00 07/20/19 21:09 Levemir Vial SQ 30 units HS SHANEL Administration Ondansetron HCl 4 mg 07/19/19 08:44 07/19/19 09:16 Zofran Injection IVPUSH 4 mg Q6H PRN Administration NAUSEA Oxycodone HCl 5 mg 07/19/19 09:27 07/20/19 01:40 Roxicodone - PO 5 mg Q6H PRN Administration PAIN LEVEL 4 - 6 Oxycodone HCl 10 mg 07/19/19 09:28 07/20/19 09:46 Roxicodone - PO 10 mg Q6H PRN Administration PAIN LEVEL 7 - 10 Pantoprazole Sodium 40 mg 07/21/19 10:00 07/21/19 10:16 Protonix - PO 40 mg DAILY SHANEL Administration Polyethylene Glycol 17 gm 07/21/19 10:00 07/21/19 10:18 Miralax (For Daily Use) - PO 17 gm DAILY SHANEL Administration Senna 1 tab 07/20/19 22:00 07/20/19 21:08 Senna - PO 1 tab HS SHANEL Administration Sodium Bicarbonate 650 mg 07/20/19 11:30 07/21/19 10:16 Sodium Bicarbonate - PO 650 mg BID SHANEL Administration ASSESSMENT/PLAN: Problem List - Problems (1) Abscess of buttock, left Assessment/Plan: left buttock abscess IR evaluation requested to possibly drain wound soft tissue ultrasound shows no fluid collection, however, wound continues to drain sero sang drainage On Zosyn per ID pain control with oxycodone prn with bowel regimen HIV test pending id following Code(s): L02.31 - CUTANEOUS ABSCESS OF BUTTOCK (2) Acute renal insufficiency Assessment/Plan: seen by renal renal dose meds on bicarb drip Code(s): N28.9 - DISORDER OF KIDNEY AND URETER, UNSPECIFIED (3) Morbid obesity Assessment/Plan: outpatient follow up once acute issues are resolved Code(s): E66.01 - MORBID (SEVERE) OBESITY DUE TO EXCESS CALORIES (4) ARF (acute renal failure) Assessment/Plan: renal following Code(s): N17.9 - ACUTE KIDNEY FAILURE, UNSPECIFIED Qualifiers: Acute renal failure type: unspecified Qualified Code(s): N17.9 - Acute kidney failure, unspecified (5) Acute on chronic kidney failure Code(s): N17.9 - ACUTE KIDNEY FAILURE, UNSPECIFIED; N18.9 - CHRONIC KIDNEY DISEASE, UNSPECIFIED Qualifiers: Acute renal failure type: unspecified Chronic kidney disease stage: stage 4 (severe) Qualified Code(s): N17.9 - Acute kidney failure, unspecified; N18.4 - Chronic kidney disease, stage 4 (severe) (6) COPD (chronic obstructive pulmonary disease) Assessment/Plan: not in acute exacerbation, patient told in past that he may or may not have copd tolerating room air per ct imaging, no COPD seen or any other acute pathology cpap for marlon Code(s): J44.9 - CHRONIC OBSTRUCTIVE PULMONARY DISEASE, UNSPECIFIED (7) Diabetes Assessment/Plan: [id number] pending novolog 25 bid, novolog ac/hs based on bgms and levemir 30 hs goal is to keep bgms <180 fasting diabetic diet Code(s): E11.9 - TYPE 2 DIABETES MELLITUS WITHOUT COMPLICATIONS (8) Morbid obesity Assessment/Plan: outpatient follow up once acute issues are resolved Code(s): E66.01 - MORBID (SEVERE) OBESITY DUE TO EXCESS CALORIES (9) History of CVA (cerebrovascular accident) Assessment/Plan: cva 2013 and 2014 on asa and lipitor lipid panel pending Code(s): Z86.73 - PRSNL HX OF TIA (TIA), AND CEREB INFRC W/O RESID DEFICITS (10) MARLON (obstructive sleep apnea) Assessment/Plan: on cpap at night, but refused to wear overnight encouraged to use Code(s): G47.33 - OBSTRUCTIVE SLEEP APNEA (ADULT) (PEDIATRIC) (11) Prophylactic measure Assessment/Plan: physical therapy protonix heparin bowel regimen: colace incentive spriometer full code Code(s): Z29.9 - ENCOUNTER FOR PROPHYLACTIC MEASURES, UNSPECIFIED (12) DVT prophylaxis Assessment/Plan: heparin tid Code(s): Z29.9 - ENCOUNTER FOR PROPHYLACTIC MEASURES, UNSPECIFIED Visit type - Emergency Visit Emergency Visit: Yes ED Registration Date: 07/18/19 Care time: The patient presented to the Emergency Department on the above date and was hospitalized for further evaluation of their emergent condition. - New Patient This patient is new to me today: No - Critical Care Critical Care patient: No - Discharge Referral Referred to [facility] Med P.C.: No
[2019-07-21] MEDS ORDERED: BISACODYL 10 MG SUPP.RECT RC ONE (16:53)
--- NOTE | 2019-07-21 19:14 | CONSULT ---
Consult Consult Specialty:: Surgery Reason for Consultation:: perianal pain and swelling - History of Present Illness Chief Complaint: perianal pain History of Present Illness: 68 M h/o morbid obesity, CKD , bladder ca s/p ilealconduit, T2DM, HTN, HLD, MARLON presents with complains of L perianal pain that started on Thursday and evolved over the weekend. Patient endorses L perianal pain started on Thursday as discomfort in the region, but slowly evolved to warmth, pain, to the point where he cannot sit on that side. 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 History of Recent Travel: No Home Medications - Allergies Allergies/Adverse Reactions: Allergies Allergy/AdvReac Type Severity Reaction Status Date / Time shrimp Allergy Intermediate Vomiting Verified 07/18/19 08:18 - Home Medications Home Medications: Ambulatory Orders Atorvastatin Ca [Lipitor] 10 mg PO DAILY 06/07/17 Cholecalciferol (Vitamin D3) [Vitamin D3] 1,000 unit PO DAILY 06/07/17 Cyanocobalamin [Vitamin B12 -] 1,000 mcg PO DAILY 06/07/17 Doxazosin Mesylate [Cardura -] 4 mg PO DAILY 06/07/17 Multivitamin [One Daily] 1 each PO DAILY 06/07/17 Insulin Detemir [Levemir Flextouch] 50 unit SQ HS 11/05/17 Aspirin 81 mg PO DAILY 06/18/18 Gabapentin 300 mg PO DAILY 06/18/18 Budesonide/Formeterol Fumarate [SYMBICORT 160/4.5mcg -] 1 inh PO BID 11/03/18 Ipratropium/Albuterol Sulfate [Combivent Respimat 20-100 Mcg] 4 gm IH BID Cyclobenzaprine HCl 10 mg PO TID PRN #9 tablet 04/08/19 Insulin (Novolog) [Novolog -] 50 units SQ AM 04/08/19 Sodium Bicarbonate - 650 mg PO BID 04/08/19 Furosemide 80 mg PO DAILY 30 Days #30 tablet 04/11/19 hydrALAZINE HCL [Apresoline -] 10 mg PO BID 30 Days tablet 04/11/19 levoFLOXacin [Levaquin -] 250 mg PO Q48H #5 tablet 04/11/19 Review of Systems - Review of Systems Constitutional: reports: No Symptoms Cardiovascular: reports: No Symptoms Respiratory: reports: No Symptoms Gastrointestinal: reports: Other (left perianal pain) Physical Exam Vital Signs: Vital Signs Temperature 98.6 F 07/21/19 14:00 Pulse Rate 72 07/21/19 18:00 Respiratory Rate 13 07/21/19 18:00 Blood Pressure 151/86 07/21/19 18:00 O2 Sat by Pulse Oximetry (%) 97 07/21/19 12:01 Constitutional: Yes: Obese Eyes: Yes: Conjunctiva Clear Neck: Yes: Supple Cardiovascular: Yes: Regular Rate and Rhythm Respiratory: Yes: CTA Bilaterally ...Rectal Exam: Yes: Other (4x3 cm tender fluctuant mass at left perianal area with scanty seropurulent discharge) Labs: CBC, BMP 07/21/19 05:06 07/21/19 05:06 Imaging - Results Cat Scan: Report Reviewed, Image Reviewed Ultrasound: Report Reviewed, Image Reviewed Problem List - Problems (1) Perianal abscess Assessment/Plan: I & D of perianal abscess in am NPO after MN except meds continue antibiotics Code(s): K61.0 - ANAL ABSCESS
[2019-07-21] MEDS: SENNOSIDES 8.6MG TABLET (FP) PO SCH (21:33)
[2019-07-21] MEDS: ATORVASTATIN CA 10 MG TABLET (FP) PO SCH (21:34)
[2019-07-21] MEDS: INSULIN (LEVEMIR) 100 UNITS/ML UNITS SQ SCH (22:30)
[2019-07-21] MEDS ORDERED: MAG HYDROX/AL HYDROX/SIMETH 30 ML UNIT-DOSE CUP PO ONE (23:26)
[2019-07-22] MEDS ORDERED: DEXTROSE 5%-WATER - 50 ML IVPB ONE ×3 (04:27→17:00)
[2019-07-22] MEDS ORDERED: PIPERACILLIN/TAZOBACTAM 2.25 GM VIAL IVPB ONE ×3 (04:27→16:59)
[2019-07-22] MEDS: PIPERACILLIN/TAZOB 2.25 GM 2.25 GM in DEXTROSE 5%-WATER - 50 ML IVPB SCH ×2 (04:35→17:16)
[2019-07-22] MEDS: DOCUSATE SODIUM 100 MG CAPSULE (FP) PO SCH ×3 (05:28→21:14)
[2019-07-22] MEDS: INSULIN SLIDING SCALE (NOVOLOG) 1 VIAL SQ SCH ×4 (06:28→21:15)
[2019-07-22 06:40] LABS: BASO % 0.3 % (0-2.0); HEMATOCRIT 29.8 % (35.4-49); HEMOGLOBIN 10.1 GM/dL (11.7-16.9); LYMPH % 9.1 % (8-40); MCH 27.6 pg (25.7-33.7); MEAN CELL VOLUME 81.4 fl (80-96); MEAN PLT VOLUME 7.9 fl (7.5-11.1); MONO % 7.6 % (3.8-10.2); PLATELET COUNT 206 K/MM3 (134-434); RBC 3.66 M/mm3 (4.00-5.60); RDW 15.8 % (11.9-15.9); WHITE BLOOD COUNT 7.5 K/mm3 (4.0-10.0)
[2019-07-22] MEDS: HEPARIN NA (PORCINE) 5,000 UNITS/ML 1ML VIAL SQ SCH ×3 (06:42→21:14)
[2019-07-22 07:26] LABS: ALBUMIN 2.5 g/dl (3.4-5.0); BILIRUBIN,TOTAL 0.4 mg/dL (0.2-1); BLOOD UREA NITROGEN 60.2 mg/dL (7-18); CALCIUM 8.8 mg/dL (8.5-10.1); CREATININE 2.9 mg/dL (0.55-1.3); MAGNESIUM 2.1 mg/dL (1.8-2.4); PHOSPHOROUS 2.7 mg/dL (2.5-4.9); POTASSIUM 3.5 mmol/L (3.5-5.1); TOT PROT 5.9 g/dl (6.4-8.2)
--- NOTE | 2019-07-22 07:38 | PN ---
Progress Note, Physician Chief Complaint: Feels much relief after procedure-no pain. History of Present Illness: Patient is a 68 year old male who presents to the ED on 07/18/2019 with left lower buttocks abscess. His past medical history includes bladder CA status post urostomy 2 years ago, diabetes, baseline renal insufficiency, hyperglycemia. Patient also has history of stroke, once in 2013 and again on 2014 when ASA was held for procedure. - Current Medication List Current Medications: Active Medications Albuterol/Ipratropium (Duoneb -) 1 amp NEB Q6H PRN PRN Reason: SHORTNESS OF BREATH Aspirin (Ecotrin -) 81 mg PO DAILY [facility] Last Admin: 07/21/19 10:17 Dose: 81 mg Atorvastatin Calcium (Lipitor -) 10 mg PO HS [facility] Last Admin: 07/21/19 21:34 Dose: 10 mg Budesonide/Formoterol Fumarate (Symbicort 160/4.5mcg -) 1 puff IH BID [facility] Last Admin: 07/21/19 23:19 Dose: 1 puff Cholecalciferol (Vitamin D3 -) 1,000 unit PO DAILY [facility] Last Admin: 07/21/19 10:16 Dose: 1,000 unit Cyanocobalamin (Vitamin B12 -) 1,000 mcg PO DAILY [facility] Last Admin: 07/21/19 12:45 Dose: 1,000 mcg Docusate Sodium (Colace -) 100 mg PO TID [facility] Last Admin: 07/22/19 05:28 Dose: Not Given Doxazosin Mesylate (Cardura -) 4 mg PO DAILY [facility] Last Admin: 07/21/19 12:45 Dose: 4 mg Gabapentin (Neurontin -) 300 mg PO DAILY [facility] Last Admin: 07/21/19 10:16 Dose: 300 mg Heparin Sodium (Porcine) (Heparin -) 5,000 unit SQ TID [facility] Last Admin: 07/22/19 06:42 Dose: 5,000 unit Hydralazine HCl (Apresoline -) 10 mg PO BID [facility] Last Admin: 07/21/19 21:34 Dose: 10 mg Piperacillin Sod/Tazobactam (Sod 2.25 gm/ Dextrose) 50 mls @ 100 mls/hr IVPB Q8H-IV SHANEL; Protocol Last Admin: 07/22/19 04:35 Dose: 100 mls/hr Insulin Aspart (Novolog Vial Sliding Scale -) 1 vial SQ [facility]; Protocol Last Admin: 07/22/19 06:28 Dose: Not Given Insulin Detemir (Levemir Vial) 30 units SQ [facility] Last Admin: 07/21/19 22:30 Dose: 30 units Ondansetron HCl (Zofran Injection) 4 mg IVPUSH Q6H PRN PRN Reason: NAUSEA Last Admin: 07/19/19 09:16 Dose: 4 mg Oxycodone HCl (Roxicodone -) 5 mg PO Q6H PRN PRN Reason: PAIN LEVEL 4 - 6 Last Admin: 07/20/19 01:40 Dose: 5 mg Oxycodone HCl (Roxicodone -) 10 mg PO Q6H PRN PRN Reason: PAIN LEVEL 7 - 10 Last Admin: 07/20/19 09:46 Dose: 10 mg Pantoprazole Sodium (Protonix -) 40 mg PO DAILY [facility] Last Admin: 07/21/19 10:16 Dose: 40 mg Polyethylene Glycol (Miralax (For Daily Use) -) 17 gm PO DAILY [facility] Last Admin: 07/21/19 10:18 Dose: 17 gm Senna (Senna -) 1 tab PO [facility] Last Admin: 07/21/19 21:33 Dose: 1 tab Sodium Bicarbonate (Sodium Bicarbonate -) 650 mg PO BID [facility] Last Admin: 07/21/19 21:33 Dose: 650 mg - Objective Vital Signs: Vital Signs Temperature 98.3 F 07/21/19 22:00 Pulse Rate 64 07/22/19 06:00 Respiratory Rate 20 07/22/19 06:00 Blood Pressure 159/64 07/22/19 06:00 O2 Sat by Pulse Oximetry (%) 98 07/21/19 21:00 Constitutional: Yes: Obese Eyes: Yes: WNL, Conjunctiva Clear HENT: Yes: WNL, Atraumatic, Normocephalic Neck: Yes: WNL, Supple, Trachea Midline Cardiovascular: Yes: WNL, Regular Rate and Rhythm Respiratory: Yes: WNL, Regular, CTA Bilaterally Gastrointestinal: Yes: Normal Bowel Sounds, Soft, Abdomen, Obese ...Rectal Exam: Yes: Deferred Genitourinary: Yes: WNL Breast(s): Yes: WNL Musculoskeletal: Yes: WNL Extremities: Yes: WNL Edema: No Peripheral Pulses WNL: Yes Peripheral Pulses: Left Radial: 2+, Right Radial: 2+, Left Doralis Pedis: 2+, Right Dorsalis Pedis: 2+, Left Femoral: 2+, Right Femoral: 2+ Integumentary: Yes: Erythema (left lower buttock with dressing intact) Wound/Incision: Yes: Dressing Dry and Intact Neurological: Yes: WNL, Alert, Oriented ...Motor Strength: WNL Psychiatric: Yes: WNL Labs: CBC, BMP 07/22/19 05:55 07/22/19 05:55 Problem List - Problems (1) Acute kidney injury Assessment/Plan: Cr 2.9 near baseline avoid nephrotoxic agents renal following c/w sodium josh will assess new for resuming diuretics tmrw Code(s): N17.9 - ACUTE KIDNEY FAILURE, UNSPECIFIED (2) Abscess of buttock, left Assessment/Plan: S/P ID of left bettock intro-op cx sent and will follow c/w zosyn ID following Code(s): L02.31 - CUTANEOUS ABSCESS OF BUTTOCK (3) COPD (chronic obstructive pulmonary disease) Assessment/Plan: c/w duonebs supplemental O2 prn Code(s): J44.9 - CHRONIC OBSTRUCTIVE PULMONARY DISEASE, UNSPECIFIED (4) History of CVA (cerebrovascular accident) Assessment/Plan: history of, no active issues Code(s): Z86.73 - PRSNL HX OF TIA (TIA), AND CEREB INFRC W/O RESID DEFICITS (5) Morbid obesity Assessment/Plan: counseled on weight loss Code(s): E66.01 - MORBID (SEVERE) OBESITY DUE TO EXCESS CALORIES (6) MARLON (obstructive sleep apnea) Assessment/Plan: uses CPAP at home, IPAP 12, FIO2 30% Code(s): G47.33 - OBSTRUCTIVE SLEEP APNEA (ADULT) (PEDIATRIC) (7) MARLON (obstructive sleep apnea) Code(s): G47.33 - OBSTRUCTIVE SLEEP APNEA (ADULT) (PEDIATRIC) (8) Prophylactic measure Assessment/Plan: FEN adequate PO intake diabetic diet monitor electrolytes DVT heaprin sq Dispo maintain on tele full code discharge planning to home pending IV Abx course Code(s): Z29.9 - ENCOUNTER FOR PROPHYLACTIC MEASURES, UNSPECIFIED (9) History of urostomy Assessment/Plan: s/p Bladder Ca urine with esbl most likely colinization Code(s): Z98.890 - OTHER SPECIFIED POSTPROCEDURAL STATES Visit type - Emergency Visit Emergency Visit: Yes ED Registration Date: 07/18/19 Care time: The patient presented to the Emergency Department on the above date and was hospitalized for further evaluation of their emergent condition. - New Patient This patient is new to me today: Yes Date on this admission: 07/22/19 - Critical Care Critical Care patient: No - Discharge Referral Referred to [facility] Med P.C.: No
[2019-07-22] MEDS ORDERED: SODIUM BICARBONATE 650 MG TABLET PO SCH (08:43)
[2019-07-22] MEDS ORDERED: MIDAZOLAM HCL 2 MG/2 ML SINGLE DOSE VIAL ONE ×2 (08:48)
[2019-07-22] MEDS ORDERED: LIDOCAINE 1%-EPI 1:100,000 30 ML MDV IJ ONE (09:06)
[2019-07-22] MEDS ORDERED: PROPOFOL 20 ML ONE (09:34)
[2019-07-22] MEDS ORDERED: LIDOCAINE 1%/EPI 1:100000 (50 ML MULTI DOSE VIAL) NR ONE (09:34)
[2019-07-22] MEDS ORDERED: ROCURONIUM BROMIDE 50 MG/5 ML SYRINGE ONE (09:35)
--- NOTE | 2019-07-22 10:17 | OP ---
Operative Note - Note: Operative Date: 07/22/19 Pre-Operative Diagnosis: PERIANAL ABSCESS Operation: I & D PERIANAL ABSCESS Findings: 4 X 3 CM LEFT PERIANAL ABSCESS 15 CC PURULENT FLUID DRAINED Post-Operative Diagnosis: Same as Pre-op Surgeon: [place] Anesthesia: Spinal Specimens Removed: WOUND C/S Estimated Blood Loss (mls): 5 Operative Report Dictated: Yes
[2019-07-22] MEDS ORDERED: ONDANSETRON 4 MG/2 ML VIAL IVPUSH PRN (10:29)
[2019-07-22] MEDS ORDERED: ALBUTEROL SO4 2.5/IPRATROPIUM 0.5 INH SOL 3 ML VIAL.NEB. NEB PRN (10:29)
--- NOTE | 2019-07-22 10:46 | OP ---
DATE OF OPERATION: 07/22/2019 PROCEDURE: Incision and drainage of perianal abscess. PREOPERATIVE DIAGNOSIS: Perianal abscess. POSTOPERATIVE DIAGNOSIS: Perianal abscess. SURGEON: Clifton Hill MD ANESTHESIA: Spinal. DESCRIPTION OF PROCEDURE: This is a 68-year-old male who presents with [id number] of left perianal pain associated with bulging of the area and exquisite tenderness on light palpation. Patient was admitted for antibiotics, and CT scan and ultrasound showed no drainable fluid collection. However, the pain persisted, and on physical exam the patient has a 4 x 3-cm fluctuant mass of the left perianal area from 1 o'clock to 5 o'clock position so patient was advised incision and drainage of the perianal abscess, and consent was obtained after discussing the risks, benefits, and alternatives to the procedure. Patient was brought to the operating room and placed in sitting position. Spinal anesthesia was administered. Patient was then placed in lithotomy position. The perineum was prepped and draped in the usual sterile fashion using sterile saline, 10 mL of lidocaine with epinephrine was injected subcutaneously for hemostasis. A 4-cm perianal vertical incision was made from 1 o'clock to 5 o'clock position 2 cm from the anal verge using scalpel blade No. 10 with dissection carried down to subcutaneous tissue. About 15 mL of purulent fluid was drained. A sample was sent for culture and sensitivity studies. Small amount of necrotic subcutaneous fat was excised, and the cavity was explored digitally to take down loculations. Cavity was copiously irrigated with sterile normal saline until it returned clear. The wound was packed with 1-inch iodoform strips and covered with pressure dressing. Patient was placed back in supine position and transferred to the post anesthesia care unit in satisfactory condition. Estimated blood loss was about 5 mL. Wound class dirty. Patient was already on IV antibiotics since admission. Renetta [id number]
--- NOTE | 2019-07-22 12:41 | PN ---
Progress Note, Physician History of Present Illness: stable feels much better post op now - Current Medication List Current Medications: Active Medications Albuterol/Ipratropium (Duoneb -) 1 amp NEB Q6H PRN PRN Reason: SHORTNESS OF BREATH Aspirin (Ecotrin -) 81 mg PO DAILY [facility] Atorvastatin Calcium (Lipitor -) 10 mg PO HS [facility] Budesonide/Formoterol Fumarate (Symbicort 160/4.5mcg -) 1 puff IH BID [facility] Chlorhexidine Gluconate (Hibiclens For Decolonization -) 1 applic TP HS [facility] Cholecalciferol (Vitamin D3 -) 1,000 unit PO DAILY [facility] Cyanocobalamin (Vitamin B12 -) 1,000 mcg PO DAILY [facility] Docusate Sodium (Colace -) 100 mg PO TID [facility] Doxazosin Mesylate (Cardura -) 4 mg PO DAILY [facility] Fentanyl (Sublimaze Injection -) 25 mcg IVPUSH [id number] PRN PRN Reason: PAIN-PACU ORDER X 4 DOSES ONLY Gabapentin (Neurontin -) 300 mg PO DAILY [facility] Heparin Sodium (Porcine) (Heparin -) 5,000 unit SQ TID [facility] Hydralazine HCl (Apresoline -) 10 mg PO BID [facility] Piperacillin Sod/Tazobactam (Sod 2.25 gm/ Dextrose) 50 mls @ 100 mls/hr IVPB Q8H-IV [facility]; Protocol Insulin Aspart (Novolog Vial Sliding Scale -) 1 vial SQ ACHS [facility]; Protocol Last Admin: 07/22/19 11:55 Dose: Not Given Insulin Detemir (Levemir Vial) 30 units SQ HS [facility] Mupirocin (Bactroban Ointment (For Decolonization) -) 1 applic NS BID [facility] Stop: 07/27/19 21:59 Ondansetron HCl (Zofran Injection) 4 mg IVPUSH Q6H PRN PRN Reason: NAUSEA Oxycodone HCl (Roxicodone -) 10 mg PO Q6H PRN PRN Reason: PAIN LEVEL 7 - 10 Pantoprazole Sodium (Protonix -) 40 mg PO DAILY [facility] Polyethylene Glycol (Miralax (For Daily Use) -) 17 gm PO DAILY [facility] Senna (Senna -) 1 tab PO HS [facility] Sodium Bicarbonate (Sodium Bicarbonate -) 1,300 mg PO BID [facility] - Objective Vital Signs: Vital Signs Temperature 97.6 F 07/22/19 12:12 Pulse Rate 62 07/22/19 12:12 Respiratory Rate 13 07/22/19 12:12 Blood Pressure 162/92 07/22/19 12:12 O2 Sat by Pulse Oximetry (%) 98 07/22/19 11:50 Constitutional: Yes: No Distress, Calm Cardiovascular: Yes: S1, S2 Respiratory: Yes: Regular, CTA Bilaterally Gastrointestinal: Yes: Normal Bowel Sounds, Soft Musculoskeletal: Yes: WNL Extremities: Yes: WNL Wound/Incision: Yes: Dressing Dry and Intact Neurological: Yes: Alert, Oriented Labs: CBC, BMP 07/22/19 05:55 07/22/19 05:55 Assessment/Plan 68 year old gentleman with history of CKD stage 4, urethral diverison with ileual conduit, COPD, hypertension, hyperlipideima who presented from home with perirectal abcess with MEKA on CKD. 1. Acute on chronic renal insufficiency 2. CKD stage 4 3. Acute on Chronic metabolic acidosis 4. Anemia 5. Perirectal abcess site looks clean and dry plan we will continue abx await for post op wound cx rest as per the team stable
--- NOTE | 2019-07-22 13:29 | PN ---
Progress Note (short form) - Note Progress Note: S/P I&D of a perianal abscess. Did not use CPAP overnight. No CP or SOB. Intake & Output 07/19/19 07/20/19 07/21/19 07/22/19 23:59 23:59 23:59 23:59 Intake Total 2500 2300 550 600 Output Total 3400 2425 2750 1685 Balance -900 -125 -2200 -1085 Weight 288 lb 12.889 oz Last Vital Signs Temp Pulse Resp BP Pulse Ox 97.6 F 62 13 162/92 98 07/22/19 12:12 07/22/19 12:12 07/22/19 12:12 07/22/19 12:12 07/22/19 11:50 Active Medications Albuterol/Ipratropium (Duoneb -) 1 amp NEB Q6H PRN PRN Reason: SHORTNESS OF BREATH Aspirin (Ecotrin -) 81 mg PO DAILY [facility] Atorvastatin Calcium (Lipitor -) 10 mg PO HS [facility] Budesonide/Formoterol Fumarate (Symbicort 160/4.5mcg -) 1 puff IH BID [facility] Chlorhexidine Gluconate (Hibiclens For Decolonization -) 1 applic TP HS [facility] Cholecalciferol (Vitamin D3 -) 1,000 unit PO DAILY [facility] Cyanocobalamin (Vitamin B12 -) 1,000 mcg PO DAILY [facility] Docusate Sodium (Colace -) 100 mg PO TID [facility] Doxazosin Mesylate (Cardura -) 4 mg PO DAILY [facility] Fentanyl (Sublimaze Injection -) 25 mcg IVPUSH [id number] PRN PRN Reason: PAIN-PACU ORDER X 4 DOSES ONLY Gabapentin (Neurontin -) 300 mg PO DAILY [facility] Heparin Sodium (Porcine) (Heparin -) 5,000 unit SQ TID [facility] Hydralazine HCl (Apresoline -) 10 mg PO BID [facility] Piperacillin Sod/Tazobactam (Sod 2.25 gm/ Dextrose) 50 mls @ 100 mls/hr IVPB Q8H-IV [facility]; Protocol Insulin Aspart (Novolog Vial Sliding Scale -) 1 vial SQ ACHS [facility]; Protocol Last Admin: 07/22/19 11:55 Dose: Not Given Insulin Detemir (Levemir Vial) 30 units SQ HS [facility] Mupirocin (Bactroban Ointment (For Decolonization) -) 1 applic NS BID [facility] Stop: 07/27/19 21:59 Ondansetron HCl (Zofran Injection) 4 mg IVPUSH Q6H PRN PRN Reason: NAUSEA Oxycodone HCl (Roxicodone -) 10 mg PO Q6H PRN PRN Reason: PAIN LEVEL 7 - 10 Pantoprazole Sodium (Protonix -) 40 mg PO DAILY [facility] Polyethylene Glycol (Miralax (For Daily Use) -) 17 gm PO DAILY [facility] Senna (Senna -) 1 tab PO HS [facility] Sodium Bicarbonate (Sodium Bicarbonate -) 1,300 mg PO BID [facility] Constitutional: Yes: No Distress, Calm Eyes: Yes: Conjunctiva Clear, EOM Intact HENT: Yes: Atraumatic, Normocephalic Neck: Yes: Supple, Trachea Midline Cardiovascular: Yes: Regular Rate and Rhythm Respiratory: Yes: CTA Bilaterally, Diminished. No: Accessory Muscle Use, Rales , Rhonchi, SOB, SOB on Exertion, Stridor, Tachypnea, Wheezes ...Inspection: Yes: WNL ...Clubbing: No Gastrointestinal: Yes: Normal Bowel Sounds, Soft, Abdomen, Obese Renal/: Yes: WNL Musculoskeletal: Yes: Dressing Extremities: Yes: WNL Edema: No Peripheral Pulses WNL: Yes Integumentary: Yes: Other (left buttock ) Neurological: Yes: WNL, Alert, Oriented ...Motor Strength: WNL Psychiatric: Yes: WNL, Alert, Oriented Labs: Laboratory Results - last 24 hr 07/21/19 07/21/19 07/22/19 17:09 21:35 05:55 WBC 7.5 RBC 3.66 L Hgb 10.1 L Hct 29.8 L MCV 81.4 MCH 27.6 MCHC 34.0 RDW 15.8 Plt Count 206 MPV 7.9 Absolute Neuts (auto) 5.9 Neutrophils % 78.0 Lymphocytes % 9.1 Monocytes % 7.6 Eosinophils % 5.0 H Basophils % 0.3 Nucleated RBC % 0 Sodium Potassium Chloride Carbon Dioxide Anion Gap BUN Creatinine Est GFR (CKD-EPI)AfAm Est GFR (CKD-EPI)NonAf POC Glucometer 123 164 Random Glucose Hemoglobin A1c % Calcium Phosphorus Magnesium Total Bilirubin AST ALT Alkaline Phosphatase Total Protein Albumin 07/22/19 07/22/19 07/22/19 05:55 05:55 06:17 WBC RBC Hgb Hct MCV MCH MCHC RDW Plt Count MPV Absolute Neuts (auto) Neutrophils % Lymphocytes % Monocytes % Eosinophils % Basophils % Nucleated RBC % Sodium 144 Potassium 3.5 Chloride 118 H Carbon Dioxide 17 L Anion Gap 8 BUN 60.2 H Creatinine 2.9 H Est GFR (CKD-EPI)AfAm 24.29 Est GFR (CKD-EPI)NonAf 20.96 POC Glucometer 149 Random Glucose 151 H Hemoglobin A1c % 10.8 H Calcium 8.8 Phosphorus 2.7 Magnesium 2.1 Total Bilirubin 0.4 AST 18 ALT 22 Alkaline Phosphatase 63 Total Protein 5.9 L Albumin 2.5 L 07/22/19 11:33 WBC RBC Hgb Hct MCV MCH MCHC RDW Plt Count MPV Absolute Neuts (auto) Neutrophils % Lymphocytes % Monocytes % Eosinophils % Basophils % Nucleated RBC % Sodium Potassium Chloride Carbon Dioxide Anion Gap BUN Creatinine Est GFR (CKD-EPI)AfAm Est GFR (CKD-EPI)NonAf POC Glucometer 137 Random Glucose Hemoglobin A1c % Calcium Phosphorus Magnesium Total Bilirubin AST ALT Alkaline Phosphatase Total Protein Albumin Problem List - Problems (1) Morbid obesity Code(s): E66.01 - MORBID (SEVERE) OBESITY DUE TO EXCESS CALORIES (2) Abscess of buttock, left Code(s): L02.31 - CUTANEOUS ABSCESS OF BUTTOCK (3) Anemia Code(s): D64.9 - ANEMIA, UNSPECIFIED (4) Chronic kidney disease Code(s): N18.9 - CHRONIC KIDNEY DISEASE, UNSPECIFIED Qualifiers: Chronic kidney disease stage: stage 4 (severe) Qualified Code(s): N18.4 - Chronic kidney disease, stage 4 (severe) (5) Cough Code(s): R05 - COUGH (6) Diabetes Code(s): E11.9 - TYPE 2 DIABETES MELLITUS WITHOUT COMPLICATIONS Qualifiers: Diabetes mellitus type: type 2 Diabetes mellitus salvage determiner insulin use: with prison use Diabetes mellitus complication status: with kidney complications Diabetes mellitus complication detail: with chronic kidney disease Chronic kidney disease stage: stage 4 (severe) Qualified Code(s): E11.22 - Type 2 diabetes mellitus with diabetic chronic kidney disease; N18.4 - Chronic kidney disease, stage 4 (severe); Z79.4 - exterminator helper (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 Assessment/Plan Encouraged use of CPAP @ 13 cm H2O O2 as needed ABX per ID Local wound care VTE prophylaxis BD TX PRN Dr Rios Problem List - Problems (1) Morbid obesity Code(s): E66.01 - MORBID (SEVERE) OBESITY DUE TO EXCESS CALORIES (2) Abscess of buttock, left Code(s): L02.31 - CUTANEOUS ABSCESS OF BUTTOCK (3) Anemia Code(s): D64.9 - ANEMIA, UNSPECIFIED (4) Chronic kidney disease Code(s): N18.9 - CHRONIC KIDNEY DISEASE, UNSPECIFIED Qualifiers: Chronic kidney disease stage: stage 4 (severe) Qualified Code(s): N18.4 - Chronic kidney disease, stage 4 (severe) (5) Cough Code(s): R05 - COUGH (6) Diabetes Code(s): E11.9 - TYPE 2 DIABETES MELLITUS WITHOUT COMPLICATIONS Qualifiers: Diabetes mellitus type: type 2 Diabetes mellitus prison insulin use: with salvage determiner use Diabetes mellitus complication status: with kidney complications Diabetes mellitus complication detail: with chronic kidney disease Chronic kidney disease stage: stage 4 (severe) Qualified Code(s): E11.22 - Type 2 diabetes mellitus with diabetic chronic kidney disease; N18.4 - Chronic kidney disease, stage 4 (severe); Z79.4 - senior care (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
[2019-07-22] MEDS: oxyCODONE HCL 5 MG TABLET PO PRN (14:51)
[2019-07-22] MEDS ORDERED: PT OWN MED DRAWER 7, Y5N ONE ×2 (17:42→21:04)
[2019-07-22] MEDS: SODIUM BICARBONATE 650 MG TABLET PO SCH (21:00)
[2019-07-22] MEDS: hydrALAZINE HCL 10 MG TABLET PO SCH (21:13)
[2019-07-22] MEDS: SENNOSIDES 8.6MG TABLET (FP) PO SCH (21:14)
[2019-07-22] MEDS: ATORVASTATIN CA 10 MG TABLET (FP) PO SCH (21:14)
[2019-07-22] MEDS: BUDESONIDE/FORMETEROL FUMARATE 160/4.5 mcg INHALER IH SCH (21:16)
[2019-07-22] MEDS: INSULIN (LEVEMIR) 100 UNITS/ML UNITS SQ SCH (21:21)
[2019-07-22] MEDS: CHLORHEXIDINE GLUCONATE 4% CLEANSER FOR DECOLONIZATION TP SCH (21:21)
[2019-07-22] MEDS: MUPIROCIN 2% TOPICAL OINTMENT FOR DECOLONIZATION NS SCH (21:22)
[2019-07-22] MEDS ORDERED: hydrALAZINE HCL 10 MG TABLET PO SCH (22:00)
[2019-07-23] MEDS ORDERED: PIPERACILLIN/TAZOBACTAM 2.25 GM VIAL IVPB ONE ×3 (00:53→18:02)
[2019-07-23] MEDS ORDERED: DEXTROSE 5%-WATER - 50 ML IVPB ONE ×3 (00:53→18:03)
[2019-07-23] MEDS: PIPERACILLIN/TAZOB 2.25 GM 2.25 GM in DEXTROSE 5%-WATER - 50 ML IVPB SCH ×3 (01:05→18:07)
[2019-07-23] MEDS: HEPARIN NA (PORCINE) 5,000 UNITS/ML 1ML VIAL SQ SCH ×3 (06:24→21:59)
[2019-07-23] MEDS: INSULIN SLIDING SCALE (NOVOLOG) 1 VIAL SQ SCH ×3 (06:24→22:56)
[2019-07-23] MEDS: DOCUSATE SODIUM 100 MG CAPSULE (FP) PO SCH ×3 (06:24→21:59)
[2019-07-23 07:10] LABS: BASO % 0.9 % (0-2.0); EOS % 6.3 % (0-4.5); HEMATOCRIT 30.6 % (35.4-49); HEMOGLOBIN 10.2 GM/dL (11.7-16.9); LYMPH % 9.6 % (8-40); MCH 27.4 pg (25.7-33.7); MCHC 33.3 g/dl (32.0-35.9); MEAN CELL VOLUME 82.4 fl (80-96); MEAN PLT VOLUME 8.2 fl (7.5-11.1); NEUT % 76.2 % (42.8-82.8); PLATELET COUNT 228 K/MM3 (134-434); RBC 3.72 M/mm3 (4.00-5.60); RDW 15.3 % (11.9-15.9)
--- NOTE | 2019-07-23 07:28 | PN ---
Progress Note, Physician Chief Complaint: POD #1 I& D History of Present Illness: Patient is a 68 year old male who presents to the ED on 07/18/2019 with left lower buttocks abscess. His past medical history includes bladder CA status post urostomy 2 years ago, diabetes, baseline renal insufficiency, hyperglycemia. Patient also has history of stroke, once in 2013 and again on 2014 when ASA was held for procedure. - Current Medication List Current Medications: Active Medications Albuterol/Ipratropium (Duoneb -) 1 amp NEB Q6H PRN PRN Reason: SHORTNESS OF BREATH Aspirin (Ecotrin -) 81 mg PO DAILY [facility] Atorvastatin Calcium (Lipitor -) 10 mg PO HS [facility] Last Admin: 07/22/19 21:14 Dose: 10 mg Budesonide/Formoterol Fumarate (Symbicort 160/4.5mcg -) 1 puff IH BID [facility] Last Admin: 07/22/19 21:16 Dose: 1 puff Chlorhexidine Gluconate (Hibiclens For Decolonization -) 1 applic TP [facility] Last Admin: 07/22/19 21:21 Dose: 1 applic Cholecalciferol (Vitamin D3 -) 1,000 unit PO DAILY [facility] Cyanocobalamin (Vitamin B12 -) 1,000 mcg PO DAILY [facility] Docusate Sodium (Colace -) 100 mg PO TID [facility] Last Admin: 07/23/19 06:24 Dose: 100 mg Doxazosin Mesylate (Cardura -) 4 mg PO DAILY [facility] Fentanyl (Sublimaze Injection -) 25 mcg IVPUSH [id number] PRN PRN Reason: PAIN-PACU ORDER X 4 DOSES ONLY Gabapentin (Neurontin -) 300 mg PO DAILY [facility] Heparin Sodium (Porcine) (Heparin -) 5,000 unit SQ TID [facility] Last Admin: 07/23/19 06:24 Dose: 5,000 unit Hydralazine HCl (Apresoline -) 10 mg PO BID [facility] Last Admin: 07/22/19 21:13 Dose: 10 mg Piperacillin Sod/Tazobactam (Sod 2.25 gm/ Dextrose) 50 mls @ 100 mls/hr IVPB Q8H-IV [facility]; Protocol Last Admin: 07/23/19 01:05 Dose: 100 mls/hr Insulin Aspart (Novolog Vial Sliding Scale -) 1 vial SQ ACHS [facility]; Protocol Last Admin: 07/23/19 06:24 Dose: Not Given Insulin Detemir (Levemir Vial) 30 units SQ HS [facility] Last Admin: 07/22/19 21:21 Dose: 30 units Mupirocin (Bactroban Ointment (For Decolonization) -) 1 applic NS BID [facility] Stop: 07/27/19 21:59 Last Admin: 07/22/19 21:22 Dose: 1 applic Ondansetron HCl (Zofran Injection) 4 mg IVPUSH Q6H PRN PRN Reason: NAUSEA Oxycodone HCl (Roxicodone -) 10 mg PO Q6H PRN PRN Reason: PAIN LEVEL 7 - 10 Last Admin: 07/22/19 14:51 Dose: 10 mg Pantoprazole Sodium (Protonix -) 40 mg PO DAILY [facility] Polyethylene Glycol (Miralax (For Daily Use) -) 17 gm PO DAILY [facility] Senna (Senna -) 1 tab PO [facility] Last Admin: 07/22/19 21:14 Dose: 1 tab Sodium Bicarbonate (Sodium Bicarbonate -) 1,300 mg PO BID [facility] Last Admin: 07/22/19 21:00 Dose: 1,300 mg - Objective Vital Signs: Vital Signs Temperature 98.9 F 07/23/19 06:36 Pulse Rate 65 07/23/19 06:36 Respiratory Rate 17 07/23/19 06:36 Blood Pressure 160/88 07/23/19 06:36 O2 Sat by Pulse Oximetry (%) 98 07/22/19 20:16 Constitutional: Yes: Well Nourished, No Distress, Calm Eyes: Yes: WNL, Conjunctiva Clear HENT: Yes: WNL, Atraumatic, Normocephalic Neck: Yes: WNL, Supple, Trachea Midline Cardiovascular: Yes: WNL, Regular Rate and Rhythm Respiratory: Yes: WNL, Regular, CTA Bilaterally Gastrointestinal: Yes: WNL, Normal Bowel Sounds ...Rectal Exam: Yes: Deferred Genitourinary: Yes: Other (urostomy noted) Breast(s): Yes: WNL Musculoskeletal: Yes: WNL Edema: Yes Edema: LLE: Trace, RLE: Trace Peripheral Pulses WNL: Yes Peripheral Pulses: Left Radial: 2+, Right Radial: 2+, Left Doralis Pedis: 2+, Right Dorsalis Pedis: 2+, Left Femoral: 2+, Right Femoral: 2+ Integumentary: Yes: WNL Wound/Incision: Yes: Clean/Dry (left buttock) Neurological: Yes: WNL, Alert, Oriented ...Motor Strength: WNL Psychiatric: Yes: WNL Labs: CBC, BMP 07/23/19 06:30 Problem List - Problems (1) Acute kidney injury Assessment/Plan: Cr 3.0 near baseline avoid nephrotoxic agents renal following c/w sodium josh lasix restarted Code(s): N17.9 - ACUTE KIDNEY FAILURE, UNSPECIFIED (2) Abscess of buttock, left Assessment/Plan: S/P ID of left buttock packing removed by Dr Sergio hwang as needed intro-op cx sent and will follow c/w zosyn ID following Code(s): L02.31 - CUTANEOUS ABSCESS OF BUTTOCK (3) COPD (chronic obstructive pulmonary disease) Assessment/Plan: c/w duonebs supplemental O2 prn Cpap as needed Code(s): J44.9 - CHRONIC OBSTRUCTIVE PULMONARY DISEASE, UNSPECIFIED (4) History of CVA (cerebrovascular accident) Assessment/Plan: history of, no active issues Code(s): Z86.73 - PRSNL HX OF TIA (TIA), AND CEREB INFRC W/O RESID DEFICITS (5) Morbid obesity Assessment/Plan: counseled on weight loss Code(s): E66.01 - MORBID (SEVERE) OBESITY DUE TO EXCESS CALORIES (6) MARLON (obstructive sleep apnea) Assessment/Plan: uses CPAP at home, IPAP 12, FIO2 30% Code(s): G47.33 - OBSTRUCTIVE SLEEP APNEA (ADULT) (PEDIATRIC) (7) Prophylactic measure Assessment/Plan: FEN adequate PO intake diabetic diet monitor electrolytes DVT heaprin sq Dispo maintain on tele full code discharge planning to home pending IV Abx course Code(s): Z29.9 - ENCOUNTER FOR PROPHYLACTIC MEASURES, UNSPECIFIED (8) History of urostomy Assessment/Plan: s/p Bladder Ca urine with esbl most likely colinization Code(s): Z98.890 - OTHER SPECIFIED POSTPROCEDURAL STATES Visit type - Emergency Visit Emergency Visit: Yes ED Registration Date: 07/18/19 Care time: The patient presented to the Emergency Department on the above date and was hospitalized for further evaluation of their emergent condition. - New Patient This patient is new to me today: No - Critical Care Critical Care patient: No - Discharge Referral Referred to [facility] Med [facility].C.: No
[2019-07-23 07:33] LABS: ALBUMIN 2.6 g/dl (3.4-5.0); BILIRUBIN,TOTAL 0.3 mg/dL (0.2-1); BLOOD UREA NITROGEN 53.4 mg/dL (7-18); CALCIUM 8.4 mg/dL (8.5-10.1); POTASSIUM 3.7 mmol/L (3.5-5.1); TOT PROT 5.9 g/dl (6.4-8.2)
--- NOTE | 2019-07-23 08:50 | PN ---
Progress Note (short form) - Note Progress Note: 68 M s/p spinal for rectal abscess ID. pt feels well. no comps. good result of anesthetic care.
--- NOTE | 2019-07-23 09:27 | PN ---
Progress Note (short form) - Note Progress Note: Renal follow up for MEKA on CKD Seen and examined at the bedside awake and alert reports passing a lot of gas denies any abdominal pain no chest pain or shortness of breath making urine Vital Signs Temperature 98.9 F 07/23/19 06:36 Pulse Rate 65 07/23/19 06:36 Respiratory Rate 17 07/23/19 06:36 Blood Pressure 160/88 07/23/19 06:36 O2 Sat by Pulse Oximetry (%) 99 07/23/19 08:14 Intake & Output 07/20/19 07/21/19 07/22/19 07/23/19 23:59 23:59 23:59 23:59 Intake Total 2300 550 1140 170 Output Total 2425 2750 3285 900 Balance -125 -2200 -2145 -730 Weight 131 kg NAD RRR CTA no rales or wheeze soft, obese, NT/ND + trace to mild edema in LE CBC, BMP 07/23/19 06:30 07/23/19 06:30 Current Medications Albuterol/Ipratropium (Duoneb -) 1 amp NEB Q6H PRN PRN Reason: SHORTNESS OF BREATH Aspirin (Ecotrin -) 81 mg PO DAILY [facility] Atorvastatin Calcium (Lipitor -) 10 mg PO HS [facility] Last Admin: 07/22/19 21:14 Dose: 10 mg Budesonide/Formoterol Fumarate (Symbicort 160/4.5mcg -) 1 puff IH BID [facility] Last Admin: 07/22/19 21:16 Dose: 1 puff Chlorhexidine Gluconate (Hibiclens For Decolonization -) 1 applic TP HS [facility] Last Admin: 07/22/19 21:21 Dose: 1 applic Cholecalciferol (Vitamin D3 -) 1,000 unit PO DAILY [facility] Cyanocobalamin (Vitamin B12 -) 1,000 mcg PO DAILY [facility] Docusate Sodium (Colace -) 100 mg PO TID [facility] Last Admin: 07/23/19 06:24 Dose: 100 mg Doxazosin Mesylate (Cardura -) 4 mg PO DAILY [facility] Fentanyl (Sublimaze Injection -) 25 mcg IVPUSH [id number] PRN PRN Reason: PAIN-PACU ORDER X 4 DOSES ONLY Gabapentin (Neurontin -) 300 mg PO DAILY [facility] Heparin Sodium (Porcine) (Heparin -) 5,000 unit SQ TID [facility] Last Admin: 07/23/19 06:24 Dose: 5,000 unit Hydralazine HCl (Apresoline -) 10 mg PO BID [facility] Last Admin: 07/22/19 21:13 Dose: 10 mg Piperacillin Sod/Tazobactam (Sod 2.25 gm/ Dextrose) 50 mls @ 100 mls/hr IVPB Q8H-IV [facility]; Protocol Last Admin: 07/23/19 01:05 Dose: 100 mls/hr Insulin Aspart (Novolog Vial Sliding Scale -) 1 vial SQ ACHS [facility]; Protocol Last Admin: 07/23/19 06:24 Dose: Not Given Insulin Detemir (Levemir Vial) 30 units SQ HS [facility] Last Admin: 07/22/19 21:21 Dose: 30 units Mupirocin (Bactroban Ointment (For Decolonization) -) 1 applic NS BID [facility] Stop: 07/27/19 21:59 Last Admin: 07/22/19 21:22 Dose: 1 applic Ondansetron HCl (Zofran Injection) 4 mg IVPUSH Q6H PRN PRN Reason: NAUSEA Oxycodone HCl (Roxicodone -) 10 mg PO Q6H PRN PRN Reason: PAIN LEVEL 7 - 10 Last Admin: 07/22/19 14:51 Dose: 10 mg Pantoprazole Sodium (Protonix -) 40 mg PO DAILY [facility] Polyethylene Glycol (Miralax (For Daily Use) -) 17 gm PO DAILY [facility] Senna (Senna -) 1 tab PO HS [facility] Last Admin: 07/22/19 21:14 Dose: 1 tab Sodium Bicarbonate (Sodium Bicarbonate -) 1,300 mg PO BID [facility] Last Admin: 07/22/19 21:00 Dose: 1,300 mg 68 year old gentleman with history of CKD stage 4, urethral diverison with ileual conduit, COPD, hypertension, hyperlipideima who presented from home with perirectal abcess with MEKA on CKD. 1. Acute on chronic renal insufficiency 2. CKD stage 4 3. Acute on Chronic metabolic acidosis 4. Anemia 5. Perirectal abcess Renal function improved and stable Serum bicarb is at goal, continue oral bicarbonate BP is above goal, restart Lasix 80mg PO daily. IF BP remains above [place] can add calcium channel sharon. Thank you Freddie Forbes DO
[2019-07-23] MEDS ORDERED: PT OWN MED DRAWER 7, Y5N ONE (09:58)
[2019-07-23] MEDS ORDERED: DOXAZOSIN MESYLATE 4 MG TABLET PO SCH (10:00)
[2019-07-23] MEDS: BUDESONIDE/FORMETEROL FUMARATE 160/4.5 mcg INHALER IH SCH ×2 (10:00→23:18)
[2019-07-23] MEDS: MUPIROCIN 2% TOPICAL OINTMENT FOR DECOLONIZATION NS SCH ×2 (10:00→23:17)
[2019-07-23] MEDS: POLYETHYLENE GLYCOL 3350 119 GM BTL PO SCH (10:10)
[2019-07-23] MEDS: SODIUM BICARBONATE 650 MG TABLET PO SCH ×2 (10:12→21:58)
[2019-07-23] MEDS: FUROSEMIDE 40 MG TABLET (FP) PO SCH (10:12)
--- NOTE | 2019-07-23 10:12 | PN ---
Progress Note (short form) - Note Progress Note: Feels overall better today. Used CPAP for 1 hour overnight. No CP or SOB. Intake & Output 07/20/19 07/21/19 07/22/19 07/23/19 23:59 23:59 23:59 23:59 Intake Total 2300 550 1140 170 Output Total 2425 2750 3285 900 Balance -125 -2200 -2145 -730 Weight 288 lb 12.889 oz Last Vital Signs Temp Pulse Resp BP Pulse Ox 98.9 F 65 17 160/88 99 07/23/19 06:36 07/23/19 06:36 07/23/19 06:36 07/23/19 06:36 07/23/19 08:14 Active Medications Albuterol/Ipratropium (Duoneb -) 1 amp NEB Q6H PRN PRN Reason: SHORTNESS OF BREATH Aspirin (Ecotrin -) 81 mg PO DAILY [facility] Atorvastatin Calcium (Lipitor -) 10 mg PO HS [facility] Last Admin: 07/22/19 21:14 Dose: 10 mg Budesonide/Formoterol Fumarate (Symbicort 160/4.5mcg -) 1 puff IH BID [facility] Last Admin: 07/22/19 21:16 Dose: 1 puff Chlorhexidine Gluconate (Hibiclens For Decolonization -) 1 applic TP HS [facility] Last Admin: 07/22/19 21:21 Dose: 1 applic Cholecalciferol (Vitamin D3 -) 1,000 unit PO DAILY [facility] Cyanocobalamin (Vitamin B12 -) 1,000 mcg PO DAILY [facility] Docusate Sodium (Colace -) 100 mg PO TID [facility] Last Admin: 07/23/19 06:24 Dose: 100 mg Doxazosin Mesylate (Cardura -) 4 mg PO DAILY [facility] Fentanyl (Sublimaze Injection -) 25 mcg IVPUSH [id number] PRN PRN Reason: PAIN-PACU ORDER X 4 DOSES ONLY Furosemide (Lasix -) 80 mg PO DAILY [facility] Gabapentin (Neurontin -) 300 mg PO DAILY [facility] Heparin Sodium (Porcine) (Heparin -) 5,000 unit SQ TID [facility] Last Admin: 07/23/19 06:24 Dose: 5,000 unit Hydralazine HCl (Apresoline -) 10 mg PO BID [facility] Last Admin: 07/22/19 21:13 Dose: 10 mg Piperacillin Sod/Tazobactam (Sod 2.25 gm/ Dextrose) 50 mls @ 100 mls/hr IVPB Q8H-IV [facility]; Protocol Last Admin: 07/23/19 01:05 Dose: 100 mls/hr Insulin Aspart (Novolog Vial Sliding Scale -) [address] [facility]; Protocol Last Admin: 07/23/19 06:24 Dose: Not Given Insulin Detemir (Levemir Vial) 30 units SQ [facility] Last Admin: 07/22/19 21:21 Dose: 30 units Mupirocin (Bactroban Ointment (For Decolonization) -) 1 applic NS BID [facility] Stop: 07/27/19 21:59 Last Admin: 07/22/19 21:22 Dose: 1 applic Ondansetron HCl (Zofran Injection) 4 mg IVPUSH Q6H PRN PRN Reason: NAUSEA Oxycodone HCl (Roxicodone -) 10 mg PO Q6H PRN PRN Reason: PAIN LEVEL 7 - 10 Last Admin: 07/22/19 14:51 Dose: 10 mg Pantoprazole Sodium (Protonix -) 40 mg PO DAILY [facility] Polyethylene Glycol (Miralax (For Daily Use) -) 17 gm PO DAILY [facility] Senna (Senna -) 1 tab PO [facility] Last Admin: 07/22/19 21:14 Dose: 1 tab Sodium Bicarbonate (Sodium Bicarbonate -) 1,300 mg PO BID [facility] Last Admin: 07/22/19 21:00 Dose: 1,300 mg Constitutional: Yes: No Distress, Calm Eyes: Yes: Conjunctiva Clear, EOM Intact HENT: Yes: Atraumatic, Normocephalic Neck: Yes: Supple, Trachea Midline Cardiovascular: Yes: Regular Rate and Rhythm Respiratory: Yes: CTA Bilaterally, Diminished. No: Accessory Muscle Use, Rales , Rhonchi, SOB, SOB on Exertion, Stridor, Tachypnea, Wheezes ...Inspection: Yes: WNL ...Clubbing: No Gastrointestinal: Yes: Normal Bowel Sounds, Soft, Abdomen, Obese Renal/: Yes: WNL Musculoskeletal: Yes: Dressing Extremities: Yes: WNL Edema: No Peripheral Pulses WNL: Yes Integumentary: Yes: Other (left buttock ) Neurological: Yes: WNL, Alert, Oriented ...Motor Strength: WNL Psychiatric: Yes: WNL, Alert, Oriented Labs: Laboratory Results - last 24 hr 07/22/19 07/22/19 07/22/19 11:33 16:08 21:12 WBC RBC Hgb Hct MCV MCH MCHC RDW Plt Count MPV Absolute Neuts (auto) Neutrophils % Lymphocytes % Monocytes % Eosinophils % Basophils % Nucleated RBC % Sodium Potassium Chloride Carbon Dioxide Anion Gap BUN Creatinine Est GFR (CKD-EPI)AfAm Est GFR (CKD-EPI)NonAf POC Glucometer 137 188 137 Random Glucose Calcium Magnesium Total Bilirubin AST ALT Alkaline Phosphatase Total Protein Albumin 07/23/19 07/23/19 07/23/19 06:13 06:30 06:30 WBC 7.0 RBC 3.72 L Hgb 10.2 L Hct 30.6 L MCV 82.4 MCH 27.4 MCHC 33.3 RDW 15.3 Plt Count 228 MPV 8.2 Absolute Neuts (auto) 5.4 Neutrophils % 76.2 Lymphocytes % 9.6 Monocytes % 7.0 Eosinophils % 6.3 H Basophils % 0.9 Nucleated RBC % 0 Sodium 144 Potassium 3.7 Chloride 116 H Carbon Dioxide 21 Anion Gap 8 BUN 53.4 H Creatinine 3.0 H Est GFR (CKD-EPI)AfAm 23.31 Est GFR (CKD-EPI)NonAf 20.11 POC Glucometer 131 Random Glucose 121 H Calcium 8.4 L Magnesium 2.0 Total Bilirubin 0.3 AST 24 ALT 32 Alkaline Phosphatase 59 Total Protein 5.9 L Albumin 2.6 L Problem List - Problems (1) Morbid obesity Code(s): E66.01 - MORBID (SEVERE) OBESITY DUE TO EXCESS CALORIES (2) Abscess of buttock, left Code(s): L02.31 - CUTANEOUS ABSCESS OF BUTTOCK (3) Anemia Code(s): D64.9 - ANEMIA, UNSPECIFIED (4) Chronic kidney disease Code(s): N18.9 - CHRONIC KIDNEY DISEASE, UNSPECIFIED Qualifiers: Chronic kidney disease stage: stage 4 (severe) Qualified Code(s): N18.4 - Chronic kidney disease, stage 4 (severe) (5) Cough Code(s): R05 - COUGH (6) Diabetes Code(s): E11.9 - TYPE 2 DIABETES MELLITUS WITHOUT COMPLICATIONS Qualifiers: Diabetes mellitus type: type 2 Diabetes mellitus jail insulin use: 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 Diabetes mellitus complication status: with kidney complications Diabetes mellitus complication detail: with chronic kidney disease Chronic kidney disease stage: stage 4 (severe) Qualified Code(s): E11.22 - Type 2 diabetes mellitus with diabetic chronic kidney disease; N18.4 - Chronic kidney disease, stage 4 (severe); 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 Assessment/Plan Encouraged use of CPAP @ 13 cm H2O O2 as needed ABX per ID Local wound care VTE prophylaxis BD TX PRN Dr Rios Problem List - Problems (1) Morbid obesity Code(s): E66.01 - MORBID (SEVERE) OBESITY DUE TO EXCESS CALORIES (2) Abscess of buttock, left Code(s): L02.31 - CUTANEOUS ABSCESS OF BUTTOCK (3) Anemia Code(s): D64.9 - ANEMIA, UNSPECIFIED (4) Chronic kidney disease Code(s): N18.9 - CHRONIC KIDNEY DISEASE, UNSPECIFIED Qualifiers: Chronic kidney disease stage: stage 4 (severe) Qualified Code(s): N18.4 - Chronic kidney disease, stage 4 (severe) (5) Cough Code(s): R05 - COUGH (6) Diabetes Code(s): E11.9 - TYPE 2 DIABETES MELLITUS WITHOUT COMPLICATIONS Qualifiers: Diabetes mellitus type: type 2 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: 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 Diabetes mellitus complication status: with kidney complications Diabetes mellitus complication detail: with chronic kidney disease Chronic kidney disease stage: stage 4 (severe) Qualified Code(s): E11.22 - Type 2 diabetes mellitus with diabetic chronic kidney disease; N18.4 - Chronic kidney disease, stage 4 (severe); 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
[2019-07-23] MEDS: ASPIRIN COATED 81 MG TABLET.EC PO SCH (10:13)
[2019-07-23] MEDS: PANTOPRAZOLE 40 MG TABLET (FP) PO SCH (10:13)
[2019-07-23] MEDS: GABAPENTIN 300 MG CAPSULE (FP) PO SCH (10:14)
[2019-07-23] MEDS: CHOLECALCIFEROL (VIT D3) 1,000 UNIT (25 MCG) TABLET PO SCH (10:14)
[2019-07-23] MEDS: hydrALAZINE HCL 10 MG TABLET PO SCH ×2 (10:15→23:16)
[2019-07-23] MEDS: DOXAZOSIN MESYLATE 4 MG TABLET PO SCH (10:15)
[2019-07-23] MEDS: CYANOCOBALAMIN 1,000 MCG TABLET (FP) PO SCH (10:15)
--- NOTE | 2019-07-23 11:35 | PN ---
Progress Note, Physician Chief Complaint: left buttock abscess History of Present Illness: s/p I & D left perianal abscess c/o incisional pain denies wound bleeding - Current Medication List Current Medications: Active Medications Albuterol/Ipratropium (Duoneb -) 1 amp NEB Q6H PRN PRN Reason: SHORTNESS OF BREATH Aspirin (Ecotrin -) 81 mg PO DAILY [facility] Last Admin: 07/23/19 10:13 Dose: 81 mg Atorvastatin Calcium (Lipitor -) 10 mg PO HS [facility] Last Admin: 07/22/19 21:14 Dose: 10 mg Budesonide/Formoterol Fumarate (Symbicort 160/4.5mcg -) 1 puff IH BID [facility] Last Admin: 07/22/19 21:16 Dose: 1 puff Chlorhexidine Gluconate (Hibiclens For Decolonization -) 1 applic TP [facility] Last Admin: 07/22/19 21:21 Dose: 1 applic Cholecalciferol (Vitamin D3 -) 1,000 unit PO DAILY [facility] Last Admin: 07/23/19 10:14 Dose: 1,000 unit Cyanocobalamin (Vitamin B12 -) 1,000 mcg PO DAILY [facility] Last Admin: 07/23/19 10:15 Dose: 1,000 mcg Docusate Sodium (Colace -) 100 mg PO TID [facility] Last Admin: 07/23/19 06:24 Dose: 100 mg Doxazosin Mesylate (Cardura -) 4 mg PO DAILY [facility] Last Admin: 07/23/19 10:15 Dose: 4 mg Fentanyl (Sublimaze Injection -) 25 mcg IVPUSH [id number] PRN PRN Reason: PAIN-PACU ORDER X 4 DOSES ONLY Furosemide (Lasix -) 80 mg PO DAILY [facility] Last Admin: 07/23/19 10:12 Dose: 80 mg Gabapentin (Neurontin -) 300 mg PO DAILY [facility] Last Admin: 07/23/19 10:14 Dose: 300 mg Heparin Sodium (Porcine) (Heparin -) 5,000 unit SQ TID [facility] Last Admin: 07/23/19 06:24 Dose: 5,000 unit Hydralazine HCl (Apresoline -) 10 mg PO BID [facility] Last Admin: 07/23/19 10:15 Dose: 10 mg Piperacillin Sod/Tazobactam (Sod 2.25 gm/ Dextrose) 50 mls @ 100 mls/hr IVPB Q8H-IV [facility]; Protocol Last Admin: 07/23/19 10:11 Dose: 100 mls/hr Insulin Aspart (Novolog Vial Sliding Scale -) 1 vial SQ [facility]; Protocol Last Admin: 07/23/19 06:24 Dose: Not Given Insulin Detemir (Levemir Vial) 30 units SQ [facility] Last Admin: 07/22/19 21:21 Dose: 30 units Mupirocin (Bactroban Ointment (For Decolonization) -) 1 applic NS BID [facility] Stop: 07/27/19 21:59 Last Admin: 07/22/19 21:22 Dose: 1 applic Ondansetron HCl (Zofran Injection) 4 mg IVPUSH Q6H PRN PRN Reason: NAUSEA Oxycodone HCl (Roxicodone -) 10 mg PO Q6H PRN PRN Reason: PAIN LEVEL 7 - 10 Last Admin: 07/22/19 14:51 Dose: 10 mg Pantoprazole Sodium (Protonix -) 40 mg PO DAILY [facility] Last Admin: 07/23/19 10:13 Dose: 40 mg Polyethylene Glycol (Miralax (For Daily Use) -) 17 gm PO DAILY [facility] Last Admin: 07/23/19 10:10 Dose: 17 gm Senna (Senna -) 1 tab PO [facility] Last Admin: 07/22/19 21:14 Dose: 1 tab Sodium Bicarbonate (Sodium Bicarbonate -) 1,300 mg PO BID [facility] Last Admin: 07/23/19 10:12 Dose: 1,300 mg - Objective Vital Signs: Vital Signs Temperature 98.9 F 07/23/19 06:36 Pulse Rate 65 07/23/19 06:36 Respiratory Rate 17 07/23/19 06:36 Blood Pressure 160/88 07/23/19 06:36 O2 Sat by Pulse Oximetry (%) 99 07/23/19 08:14 ...Rectal Exam: Yes: Other (wound dry, no bleeding or purulent discharge) Labs: CBC, BMP 07/23/19 06:30 07/23/19 06:30 Problem List - Problems (1) Perianal abscess Assessment/Plan: Doing well D/C packing - done sitz baths TID ANTIBIOTIC RX per ID Code(s): K61.0 - ANAL ABSCESS
--- NOTE | 2019-07-23 18:50 | PN ---
Progress Note, Physician History of Present Illness: Pt states he feels better. Has some soreness at incisional site. No other specific complaints. Remains afebrile. Wound care being done. - Current Medication List Current Medications: Active Medications Albuterol/Ipratropium (Duoneb -) 1 amp NEB Q6H PRN PRN Reason: SHORTNESS OF BREATH Aspirin (Ecotrin -) 81 mg PO DAILY [facility] Last Admin: 07/23/19 10:13 Dose: 81 mg Atorvastatin Calcium (Lipitor -) 10 mg PO HS [facility] Last Admin: 07/22/19 21:14 Dose: 10 mg Budesonide/Formoterol Fumarate (Symbicort 160/4.5mcg -) 1 puff IH BID [facility] Last Admin: 07/23/19 10:00 Dose: 1 puff Chlorhexidine Gluconate (Hibiclens For Decolonization -) 1 applic TP [facility] Last Admin: 07/22/19 21:21 Dose: 1 applic Cholecalciferol (Vitamin D3 -) 1,000 unit PO DAILY [facility] Last Admin: 07/23/19 10:14 Dose: 1,000 unit Cyanocobalamin (Vitamin B12 -) 1,000 mcg PO DAILY [facility] Last Admin: 07/23/19 10:15 Dose: 1,000 mcg Docusate Sodium (Colace -) 100 mg PO TID [facility] Last Admin: 07/23/19 14:20 Dose: 100 mg Doxazosin Mesylate (Cardura -) 4 mg PO DAILY [facility] Last Admin: 07/23/19 10:15 Dose: 4 mg Fentanyl (Sublimaze Injection -) 25 mcg IVPUSH [id number] PRN PRN Reason: PAIN-PACU ORDER X 4 DOSES ONLY Furosemide (Lasix -) 80 mg PO DAILY [facility] Last Admin: 07/23/19 10:12 Dose: 80 mg Gabapentin (Neurontin -) 300 mg PO DAILY [facility] Last Admin: 07/23/19 10:14 Dose: 300 mg Heparin Sodium (Porcine) (Heparin -) 5,000 unit SQ TID [facility] Last Admin: 07/23/19 14:20 Dose: 5,000 unit Hydralazine HCl (Apresoline -) 10 mg PO BID [facility] Last Admin: 07/23/19 10:15 Dose: 10 mg Piperacillin Sod/Tazobactam (Sod 2.25 gm/ Dextrose) 50 mls @ 100 mls/hr IVPB Q8H-IV [facility]; Protocol Last Admin: 07/23/19 18:07 Dose: 100 mls/hr Insulin Aspart (Novolog Vial Sliding Scale -) 1 vial SQ ACHS [facility]; Protocol Last Admin: 07/23/19 12:00 Dose: 4 unit Insulin Detemir (Levemir Vial) 30 units SQ [facility] Last Admin: 07/22/19 21:21 Dose: 30 units Mupirocin (Bactroban Ointment (For Decolonization) -) 1 applic NS BID [facility] Stop: 07/27/19 21:59 Last Admin: 07/23/19 10:00 Dose: 1 applic Ondansetron HCl (Zofran Injection) 4 mg IVPUSH Q6H PRN PRN Reason: NAUSEA Oxycodone HCl (Roxicodone -) 10 mg PO Q6H PRN PRN Reason: PAIN LEVEL 7 - 10 Last Admin: 07/22/19 14:51 Dose: 10 mg Pantoprazole Sodium (Protonix -) 40 mg PO DAILY [facility] Last Admin: 07/23/19 10:13 Dose: 40 mg Polyethylene Glycol (Miralax (For Daily Use) -) 17 gm PO DAILY [facility] Last Admin: 07/23/19 10:10 Dose: 17 gm Senna (Senna -) 1 tab PO [facility] Last Admin: 07/22/19 21:14 Dose: 1 tab Sodium Bicarbonate (Sodium Bicarbonate -) 1,300 mg PO BID [facility] Last Admin: 07/23/19 10:12 Dose: 1,300 mg - Objective Vital Signs: Vital Signs Temperature 98.2 F 07/23/19 14:00 Pulse Rate 69 07/23/19 14:00 Respiratory Rate 17 07/23/19 14:00 Blood Pressure 156/80 07/23/19 14:00 O2 Sat by Pulse Oximetry (%) 97 07/23/19 16:43 Constitutional: Yes: No Distress, Calm Cardiovascular: Yes: Regular Rate and Rhythm Respiratory: Yes: Regular Gastrointestinal: Yes: Normal Bowel Sounds, Soft, Abdomen, Obese Extremities: Yes: WNL Integumentary: Yes: WNL Wound/Incision: Yes: Dressing Dry and Intact Neurological: Yes: Alert, Oriented Labs: CBC, BMP 07/23/19 06:30 07/23/19 06:30 Microbiology 07/18/19 11:00 Blood - Peripheral Venous Blood Culture - Final NO GROWTH AFTER 5 DAYS INCUBATION 07/18/19 11:30 Blood - Peripheral Venous Blood Culture - Final NO GROWTH AFTER 5 DAYS INCUBATION 07/22/19 09:37 Abscess Gram Stain - Final 07/22/19 09:37 Abscess Wound Culture - Preliminary Lactose Fermenting Neg Bacilli 07/19/19 13:20 Urine - Urostomy Bag Urine Culture - Final Escherichia Coli Esbl Bander Hand Enterococcus Faecalis Enterococcus Faecium 07/18/19 09:00 Buttock - Left Gram Stain - Final 07/18/19 09:00 Buttock - Left Wound Culture - Final Escherichia Coli Staphylococcus Coagulase Neg Diphtheroid/Corynebacterium Enterococcus Faecium 07/18/19 13:03 Urine - Urine Clean Catch Urine Culture - Final Contaminated: Please Repeat - ....Imaging Cat Scan: Report Reviewed Problem List - Problems (1) COPD (chronic obstructive pulmonary disease) Code(s): J44.9 - CHRONIC OBSTRUCTIVE PULMONARY DISEASE, UNSPECIFIED (2) Diabetes Code(s): E11.9 - TYPE 2 DIABETES MELLITUS WITHOUT COMPLICATIONS (3) History of CVA (cerebrovascular accident) Code(s): Z86.73 - PRSNL HX OF TIA (TIA), AND CEREB INFRC W/O RESID DEFICITS (4) MARLNO (obstructive sleep apnea) Code(s): G47.33 - OBSTRUCTIVE SLEEP APNEA (ADULT) (PEDIATRIC) (5) Perianal abscess Code(s): K61.0 - ANAL ABSCESS (6) Acute on chronic kidney failure Code(s): N17.9 - ACUTE KIDNEY FAILURE, UNSPECIFIED; N18.9 - CHRONIC KIDNEY DISEASE, UNSPECIFIED Qualifiers: Acute renal failure type: unspecified Chronic kidney disease stage: stage 4 (severe) Qualified Code(s): N17.9 - Acute kidney failure, unspecified; N18.4 - Chronic kidney disease, stage 4 (severe) (7) H/O total cystectomy Code(s): Z98.89 - OTHER SPECIFIED POSTPROCEDURAL STATES * DO NOT USE * Assessment/Plan Perianal abscess s/p I+D Leukocytosis -- wound cultures pending -- continue Zosyn for now -- leukocytosis resoved, pt is afebrile -- continue wound care
[2019-07-23] MEDS: ATORVASTATIN CA 10 MG TABLET (FP) PO SCH (21:59)
[2019-07-23] MEDS: SENNOSIDES 8.6MG TABLET (FP) PO SCH (21:59)
[2019-07-23] MEDS: INSULIN (LEVEMIR) 100 UNITS/ML UNITS SQ SCH (22:54)
[2019-07-23] MEDS: CHLORHEXIDINE GLUCONATE 4% CLEANSER FOR DECOLONIZATION TP SCH (22:59)
[2019-07-24] MEDS ORDERED: PIPERACILLIN/TAZOBACTAM 2.25 GM VIAL IVPB ONE ×3 (01:30→18:24)
[2019-07-24] MEDS ORDERED: DEXTROSE 5%-WATER - 50 ML IVPB ONE ×3 (01:30→18:24)
[2019-07-24] MEDS: PIPERACILLIN/TAZOB 2.25 GM 2.25 GM in DEXTROSE 5%-WATER - 50 ML IVPB SCH ×3 (01:48→18:30)
[2019-07-24] MEDS: HEPARIN NA (PORCINE) 5,000 UNITS/ML 1ML VIAL SQ SCH ×3 (06:57→21:53)
[2019-07-24] MEDS: DOCUSATE SODIUM 100 MG CAPSULE (FP) PO SCH ×3 (06:57→21:51)
[2019-07-24 07:39] LABS: BASO % 0.5 % (0-2.0); EOS % 5.9 % (0-4.5); HEMATOCRIT 35.6 % (35.4-49); LYMPH % 13.6 % (8-40); MCH 27.9 pg (25.7-33.7); MCHC 33.8 g/dl (32.0-35.9); MEAN CELL VOLUME 82.4 fl (80-96); MEAN PLT VOLUME 8.3 fl (7.5-11.1); MONO % 6.3 % (3.8-10.2); NEUT % 73.7 % (42.8-82.8); PLATELET COUNT 273 K/MM3 (134-434); RBC 4.32 M/mm3 (4.00-5.60); RDW 15.7 % (11.9-15.9); WHITE BLOOD COUNT 7.8 K/mm3 (4.0-10.0)
--- NOTE | 2019-07-24 07:42 | PN ---
Progress Note, Physician Chief Complaint: POD #2 I& D c/o constipation History of Present Illness: Patient is a 68 year old male who presents to the ED on 07/18/2019 with left lower buttocks abscess. His past medical history includes bladder CA status post urostomy 2 years ago, diabetes, baseline renal insufficiency, hyperglycemia. Patient also has history of stroke, once in 2013 and again on 2014 when ASA was held for procedure. - Current Medication List Current Medications: Active Medications Albuterol/Ipratropium (Duoneb -) 1 amp NEB Q6H PRN PRN Reason: SHORTNESS OF BREATH Aspirin (Ecotrin -) 81 mg PO DAILY [facility] Last Admin: 07/23/19 10:13 Dose: 81 mg Atorvastatin Calcium (Lipitor -) 10 mg PO HS [facility] Last Admin: 07/23/19 21:59 Dose: 10 mg Budesonide/Formoterol Fumarate (Symbicort 160/4.5mcg -) 1 puff IH BID [facility] Last Admin: 07/23/19 23:18 Dose: 1 puff Chlorhexidine Gluconate (Hibiclens For Decolonization -) 1 applic TP HS [facility] Last Admin: 07/23/19 22:59 Dose: 1 applic Cholecalciferol (Vitamin D3 -) 1,000 unit PO DAILY [facility] Last Admin: 07/23/19 10:14 Dose: 1,000 unit Cyanocobalamin (Vitamin B12 -) 1,000 mcg PO DAILY [facility] Last Admin: 07/23/19 10:15 Dose: 1,000 mcg Docusate Sodium (Colace -) 100 mg PO TID [facility] Last Admin: 07/24/19 06:57 Dose: 100 mg Doxazosin Mesylate (Cardura -) 4 mg PO DAILY [facility] Last Admin: 07/23/19 10:15 Dose: 4 mg Fentanyl (Sublimaze Injection -) 25 mcg IVPUSH [id number] PRN PRN Reason: PAIN-PACU ORDER X 4 DOSES ONLY Furosemide (Lasix -) 80 mg PO DAILY [facility] Last Admin: 07/23/19 10:12 Dose: 80 mg Gabapentin (Neurontin -) 300 mg PO DAILY [facility] Last Admin: 07/23/19 10:14 Dose: 300 mg Heparin Sodium (Porcine) (Heparin -) 5,000 unit SQ TID [facility] Last Admin: 07/24/19 06:57 Dose: 5,000 unit Hydralazine HCl (Apresoline -) 10 mg PO BID [facility] Last Admin: 07/23/19 23:16 Dose: 10 mg Piperacillin Sod/Tazobactam (Sod 2.25 gm/ Dextrose) 50 mls @ 100 mls/hr IVPB Q8H-IV [facility]; Protocol Last Admin: 07/24/19 01:48 Dose: 100 mls/hr Insulin Aspart (Novolog Vial Sliding Scale -) 1 vial SQ ACHS [facility]; Protocol Last Admin: 07/23/19 22:56 Dose: 6 unit Insulin Detemir (Levemir Vial) [address] [facility] Last Admin: 07/23/19 22:54 Dose: 30 units Mupirocin (Bactroban Ointment (For Decolonization) -) 1 applic NS BID [facility] Stop: 07/27/19 21:59 Last Admin: 07/23/19 23:17 Dose: 1 applic Ondansetron HCl (Zofran Injection) 4 mg IVPUSH Q6H PRN PRN Reason: NAUSEA Oxycodone HCl (Roxicodone -) 10 mg PO Q6H PRN PRN Reason: PAIN LEVEL 7 - 10 Last Admin: 07/22/19 14:51 Dose: 10 mg Pantoprazole Sodium (Protonix -) 40 mg PO DAILY [facility] Last Admin: 07/23/19 10:13 Dose: 40 mg Polyethylene Glycol (Miralax (For Daily Use) -) 17 gm PO DAILY [facility] Last Admin: 07/23/19 10:10 Dose: 17 gm Senna (Senna -) [address] [facility] Last Admin: 07/23/19 21:59 Dose: 1 tab Sodium Bicarbonate (Sodium Bicarbonate -) 1,300 mg PO BID [facility] Last Admin: 07/23/19 21:58 Dose: 1,300 mg - Objective Vital Signs: Vital Signs Temperature 98.1 F 07/24/19 06:00 Pulse Rate 61 07/24/19 06:00 Respiratory Rate 18 07/24/19 06:00 Blood Pressure 158/81 07/24/19 06:00 O2 Sat by Pulse Oximetry (%) 97 07/23/19 20:22 Additional Findings/Remarks: Constitutional: Yes: Well Nourished, No Distress, Calm Eyes: Yes: WNL, Conjunctiva Clear HENT: Yes: WNL, Atraumatic, Normocephalic Neck: Yes: WNL, Supple, Trachea Midline Cardiovascular: Yes: WNL, Regular Rate and Rhythm Respiratory: Yes: WNL, Regular, CTA Bilaterally Gastrointestinal: Yes: WNL, Normal Bowel Sounds ...Rectal Exam: Yes: Deferred Genitourinary: Yes: Other (urostomy noted) Breast(s): Yes: WNL Musculoskeletal: Yes: WNL Edema: Yes Edema: LLE: Trace, RLE: Trace Peripheral Pulses WNL: Yes Peripheral Pulses: Left Radial: 2+, Right Radial: 2+, Left Doralis Pedis: 2+, Right Dorsalis Pedis: 2+, Left Femoral: 2+, Right Femoral: 2+ Integumentary: Yes: WNL Wound/Incision: Yes: Clean/Dry (left buttock) Neurological: Yes: WNL, Alert, Oriented ...Motor Strength: WNL Psychiatric: Yes: WNL Problem List - Problems (1) Acute kidney injury Assessment/Plan: Cr 3.2 avoid nephrotoxic agents renal following c/w sodium josh c/w lasix Code(s): N17.9 - ACUTE KIDNEY FAILURE, UNSPECIFIED (2) Abscess of buttock, left Assessment/Plan: S/P ID of left buttock packing removed by Dr Sergio hwang as needed intro-op cx sent -growing Ecoli-sensitivities pending c/w zosyn ID following Code(s): L02.31 - CUTANEOUS ABSCESS OF BUTTOCK (3) COPD (chronic obstructive pulmonary disease) Assessment/Plan: c/w duonebs supplemental O2 prn Cpap as needed Code(s): J44.9 - CHRONIC OBSTRUCTIVE PULMONARY DISEASE, UNSPECIFIED (4) History of CVA (cerebrovascular accident) Assessment/Plan: history of, no active issues Code(s): Z86.73 - PRSNL HX OF TIA (TIA), AND CEREB INFRC W/O RESID DEFICITS (5) Morbid obesity Assessment/Plan: counseled on weight loss Code(s): E66.01 - MORBID (SEVERE) OBESITY DUE TO EXCESS CALORIES (6) MARLON (obstructive sleep apnea) Assessment/Plan: uses CPAP at home, IPAP 12, FIO2 30% Code(s): G47.33 - OBSTRUCTIVE SLEEP APNEA (ADULT) (PEDIATRIC) (7) Prophylactic measure Assessment/Plan: FEN adequate PO intake diabetic diet monitor electrolytes DVT heaprin sq Dispo maintain on tele full code discharge planning to home pending IV Abx course Code(s): Z29.9 - ENCOUNTER FOR PROPHYLACTIC MEASURES, UNSPECIFIED (8) History of urostomy Assessment/Plan: s/p Bladder Ca urine with esbl most likely colinization Code(s): Z98.890 - OTHER SPECIFIED POSTPROCEDURAL STATES (9) Hypertension Assessment/Plan: BP remains elevated start norvasc 5 mg c/w hydralazine Code(s): I10 - ESSENTIAL (PRIMARY) HYPERTENSION Qualifiers: Hypertension type: essential hypertension Qualified Code(s): I10 - Essential (primary) hypertension Visit type - Emergency Visit Emergency Visit: Yes ED Registration Date: 07/18/19 Care time: The patient presented to the Emergency Department on the above date and was hospitalized for further evaluation of their emergent condition. - New Patient This patient is new to me today: No - Critical Care Critical Care patient: No - Discharge Referral Referred to [facility] No
[2019-07-24 08:10] LABS: ALBUMIN 3.2 g/dl (3.4-5.0); BILIRUBIN,TOTAL 0.9 mg/dL (0.2-1); BLOOD UREA NITROGEN 50.1 mg/dL (7-18); CALCIUM 9.4 mg/dL (8.5-10.1); CREATININE 3.2 mg/dL (0.55-1.3); MAGNESIUM 2.1 mg/dL (1.8-2.4); TOT PROT 7.3 g/dl (6.4-8.2)
[2019-07-24] MEDS: CHOLECALCIFEROL (VIT D3) 1,000 UNIT (25 MCG) TABLET PO SCH (10:18)
[2019-07-24] MEDS: FUROSEMIDE 40 MG TABLET (FP) PO SCH (10:18)
[2019-07-24] MEDS: GABAPENTIN 300 MG CAPSULE (FP) PO SCH (10:18)
[2019-07-24] MEDS: hydrALAZINE HCL 10 MG TABLET PO SCH ×2 (10:18→22:45)
[2019-07-24] MEDS: PANTOPRAZOLE 40 MG TABLET (FP) PO SCH (10:18)
[2019-07-24] MEDS: CYANOCOBALAMIN 1,000 MCG TABLET (FP) PO SCH (10:19)
[2019-07-24] MEDS: DOXAZOSIN MESYLATE 4 MG TABLET PO SCH (10:19)
[2019-07-24] MEDS: SODIUM BICARBONATE 650 MG TABLET PO SCH ×2 (10:19→21:51)
[2019-07-24] MEDS: POLYETHYLENE GLYCOL 3350 119 GM BTL PO SCH (10:20)
[2019-07-24] MEDS: BUDESONIDE/FORMETEROL FUMARATE 160/4.5 mcg INHALER IH SCH ×2 (10:20→21:52)
[2019-07-24] MEDS: ASPIRIN COATED 81 MG TABLET.EC PO SCH (10:20)
[2019-07-24] MEDS: oxyCODONE HCL 5 MG TABLET PO PRN (10:34)
--- NOTE | 2019-07-24 11:09 | PN ---
Progress Note (short form) - Note Progress Note: Feels OK today. Feels constipated. Did not use CPAP overnight. Intake & Output 07/21/19 07/22/19 07/23/19 07/24/19 23:59 23:59 23:59 23:59 Intake Total 550 1140 1220 400 Output Total 2750 3285 3200 2250 Balance -2200 -2145 -1980 -1850 Weight 288 lb 12.889 oz Last Vital Signs Temp Pulse Resp BP Pulse Ox 98.1 F 75 18 176/87 H 96 07/24/19 10:00 07/24/19 10:00 07/24/19 10:00 07/24/19 10:00 07/24/19 08:17 Active Medications Albuterol/Ipratropium (Duoneb -) 1 amp NEB Q6H PRN PRN Reason: SHORTNESS OF BREATH Aspirin (Ecotrin -) 81 mg PO DAILY [facility] Last Admin: 07/24/19 10:20 Dose: 81 mg Atorvastatin Calcium (Lipitor -) 10 mg PO HS [facility] Last Admin: 07/23/19 21:59 Dose: 10 mg Budesonide/Formoterol Fumarate (Symbicort 160/4.5mcg -) 1 puff IH BID [facility] Last Admin: 07/24/19 10:20 Dose: 1 puff Chlorhexidine Gluconate (Hibiclens For Decolonization -) 1 applic TP HS [facility] Last Admin: 07/23/19 22:59 Dose: 1 applic Cholecalciferol (Vitamin D3 -) 1,000 unit PO DAILY [facility] Last Admin: 07/24/19 10:18 Dose: 1,000 unit Cyanocobalamin (Vitamin B12 -) 1,000 mcg PO DAILY [facility] Last Admin: 07/24/19 10:19 Dose: 1,000 mcg Docusate Sodium (Colace -) 100 mg PO TID [facility] Last Admin: 07/24/19 06:57 Dose: 100 mg Doxazosin Mesylate (Cardura -) 4 mg PO DAILY [facility] Last Admin: 07/24/19 10:19 Dose: 4 mg Fentanyl (Sublimaze Injection -) 25 mcg IVPUSH [id number] PRN PRN Reason: PAIN-PACU ORDER X 4 DOSES ONLY Furosemide (Lasix -) 80 mg PO DAILY [facility] Last Admin: 01/05/20 10:18 Dose: 80 mg Gabapentin (Neurontin -) 300 mg PO DAILY [facility] Last Admin: 07/24/19 10:18 Dose: 300 mg Heparin Sodium (Porcine) (Heparin -) 5,000 unit SQ TID [facility] Last Admin: 07/24/19 06:57 Dose: 5,000 unit Hydralazine HCl (Apresoline -) 10 mg PO BID [facility] Last Admin: 07/24/19 10:18 Dose: 10 mg Piperacillin Sod/Tazobactam (Sod 2.25 gm/ Dextrose) 50 mls @ 100 mls/hr IVPB Q8H-IV [facility]; Protocol Last Admin: 07/24/19 10:17 Dose: 100 mls/hr Insulin Aspart (Novolog Vial Sliding Scale -) 1 vial SQ ACHS [facility]; Protocol Last Admin: 07/23/19 22:56 Dose: 6 unit Insulin Detemir (Levemir Vial) 30 units SQ HS [facility] Last Admin: 07/23/19 22:54 Dose: 30 units Mupirocin (Bactroban Ointment (For Decolonization) -) 1 applic NS BID [facility] Stop: 07/27/19 21:59 Last Admin: 07/23/19 23:17 Dose: 1 applic Ondansetron HCl (Zofran Injection) 4 mg IVPUSH Q6H PRN PRN Reason: NAUSEA Oxycodone HCl (Roxicodone -) 10 mg PO Q6H PRN PRN Reason: PAIN LEVEL 7 - 10 Last Admin: 07/22/19 14:51 Dose: 10 mg Pantoprazole Sodium (Protonix -) 40 mg PO DAILY [facility] Last Admin: 07/24/19 10:18 Dose: 40 mg Polyethylene Glycol (Miralax (For Daily Use) -) 17 gm PO DAILY [facility] Last Admin: 07/24/19 10:20 Dose: 17 gm Senna (Senna -) 1 tab PO HS [facility] Last Admin: 07/23/19 21:59 Dose: 1 tab Sodium Bicarbonate (Sodium Bicarbonate -) 1,300 mg PO BID [facility] Last Admin: 07/24/19 10:19 Dose: 1,300 mg Constitutional: Yes: No Distress, Calm Eyes: Yes: Conjunctiva Clear, EOM Intact HENT: Yes: Atraumatic, Normocephalic Neck: Yes: Supple, Trachea Midline Cardiovascular: Yes: Regular Rate and Rhythm Respiratory: Yes: CTA Bilaterally, Diminished. No: Accessory Muscle Use, Rales , Rhonchi, SOB, SOB on Exertion, Stridor, Tachypnea, Wheezes ...Inspection: Yes: WNL ...Clubbing: No Gastrointestinal: Yes: Normal Bowel Sounds, Soft, Abdomen, Obese Renal/: Yes: WNL Musculoskeletal: Yes: Dressing Extremities: Yes: WNL Edema: No Peripheral Pulses WNL: Yes Integumentary: Yes: Other (left buttock ) Neurological: Yes: WNL, Alert, Oriented ...Motor Strength: WNL Psychiatric: Yes: WNL, Alert, Oriented Labs: Laboratory Results - last 24 hr 07/23/19 07/23/19 07/23/19 12:06 18:11 21:56 WBC RBC Hgb Hct MCV MCH MCHC RDW Plt Count MPV Absolute Neuts (auto) Neutrophils % Lymphocytes % Monocytes % Eosinophils % Basophils % Nucleated RBC % Sodium Potassium Chloride Carbon Dioxide Anion Gap BUN Creatinine Est GFR (CKD-EPI)AfAm Est GFR (CKD-EPI)NonAf POC Glucometer 151 116 212 Random Glucose Calcium Magnesium Total Bilirubin AST ALT Alkaline Phosphatase Total Protein Albumin 07/24/19 07/24/19 07/24/19 06:00 06:25 06:43 WBC 7.8 RBC 4.32 Hgb 12.0 Hct 35.6 D MCV 82.4 MCH 27.9 MCHC 33.8 RDW 15.7 Plt Count 273 MPV 8.3 Absolute Neuts (auto) 5.8 Neutrophils % 73.7 Lymphocytes % 13.6 D Monocytes % 6.3 Eosinophils % 5.9 H Basophils % 0.5 Nucleated RBC % 0 Sodium 142 Potassium 4.0 Chloride 112 H Carbon Dioxide 20 L Anion Gap 10 BUN 50.1 H Creatinine 3.2 H Est GFR (CKD-EPI)AfAm 21.56 Est GFR (CKD-EPI)NonAf 18.60 POC Glucometer 146 Random Glucose 161 H Calcium 9.4 Magnesium 2.1 Total Bilirubin 0.9 AST 34 ALT 46 Alkaline Phosphatase 75 Total Protein 7.3 Albumin 3.2 L Problem List - Problems (1) Morbid obesity Code(s): E66.01 - MORBID (SEVERE) OBESITY DUE TO EXCESS CALORIES (2) Abscess of buttock, left Code(s): L02.31 - CUTANEOUS ABSCESS OF BUTTOCK (3) Anemia Code(s): D64.9 - ANEMIA, UNSPECIFIED (4) Chronic kidney disease Code(s): N18.9 - CHRONIC KIDNEY DISEASE, UNSPECIFIED Qualifiers: Chronic kidney disease stage: stage 4 (severe) Qualified Code(s): N18.4 - Chronic kidney disease, stage 4 (severe) (5) Cough Code(s): R05 - COUGH (6) Diabetes Code(s): E11.9 - TYPE 2 DIABETES MELLITUS WITHOUT COMPLICATIONS Qualifiers: Diabetes mellitus type: type 2 Diabetes mellitus snf insulin use: with snf use Diabetes mellitus complication status: with kidney complications Diabetes mellitus complication detail: with chronic kidney disease Chronic kidney disease stage: stage 4 (severe) Qualified Code(s): E11.22 - Type 2 diabetes mellitus with diabetic chronic kidney disease; N18.4 - Chronic kidney disease, stage 4 (severe); Z79.4 - long term care pharmacist (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 Assessment/Plan Encouraged use of CPAP @ 13 cm H2O O2 as needed ABX per ID Local wound care VTE prophylaxis BD TX PRN Dr Rios Problem List - Problems (1) Morbid obesity Code(s): E66.01 - MORBID (SEVERE) OBESITY DUE TO EXCESS CALORIES (2) Abscess of buttock, left Code(s): L02.31 - CUTANEOUS ABSCESS OF BUTTOCK (3) Anemia Code(s): D64.9 - ANEMIA, UNSPECIFIED (4) Chronic kidney disease Code(s): N18.9 - CHRONIC KIDNEY DISEASE, UNSPECIFIED Qualifiers: Chronic kidney disease stage: stage 4 (severe) Qualified Code(s): N18.4 - Chronic kidney disease, stage 4 (severe) (5) Cough Code(s): R05 - COUGH (6) Diabetes Code(s): E11.9 - TYPE 2 DIABETES MELLITUS WITHOUT COMPLICATIONS Qualifiers: Diabetes mellitus type: type 2 Diabetes mellitus snf insulin use: with snf use Diabetes mellitus complication status: with kidney complications Diabetes mellitus complication detail: with chronic kidney disease Chronic kidney disease stage: stage 4 (severe) Qualified Code(s): E11.22 - Type 2 diabetes mellitus with diabetic chronic kidney disease; N18.4 - Chronic kidney disease, stage 4 (severe); Z79.4 - long term care pharmacist (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
[2019-07-24] MEDS ORDERED: MAGNESIUM CITRATE 300 ML BOTTLE PO ONE (12:11)
[2019-07-24] MEDS: amLODIPine BESYLATE 5 MG TABLET (FP) PO SCH (12:43)
[2019-07-24] MEDS: MUPIROCIN 2% TOPICAL OINTMENT FOR DECOLONIZATION NS SCH ×2 (12:44→21:51)
[2019-07-24] MEDS: INSULIN SLIDING SCALE (NOVOLOG) 1 VIAL SQ SCH ×5 (12:44→21:54)
--- NOTE | 2019-07-24 15:04 | PN ---
Progress Note, Physician History of Present Illness: Pt is alert, afebrile. c/o abd discomfort/constipation. Last BM 3 days ago. No n /v. No other specific complaints. - Current Medication List Current Medications: Active Medications Albuterol/Ipratropium (Duoneb -) 1 amp NEB Q6H PRN PRN Reason: SHORTNESS OF BREATH Amlodipine Besylate (Norvasc -) 5 mg PO DAILY [facility] Last Admin: 07/24/19 12:43 Dose: 5 mg Aspirin (Ecotrin -) 81 mg PO DAILY [facility] Last Admin: 07/24/19 10:20 Dose: 81 mg Atorvastatin Calcium (Lipitor -) 10 mg PO HS [facility] Last Admin: 07/23/19 21:59 Dose: 10 mg Budesonide/Formoterol Fumarate (Symbicort 160/4.5mcg -) 1 puff IH BID [facility] Last Admin: 07/24/19 10:20 Dose: 1 puff Chlorhexidine Gluconate (Hibiclens For Decolonization -) 1 applic TP HS [facility] Last Admin: 07/23/19 22:59 Dose: 1 applic Cholecalciferol (Vitamin D3 -) 1,000 unit PO DAILY [facility] Last Admin: 07/24/19 10:18 Dose: 1,000 unit Cyanocobalamin (Vitamin B12 -) 1,000 mcg PO DAILY [facility] Last Admin: 07/24/19 10:19 Dose: 1,000 mcg Docusate Sodium (Colace -) 100 mg PO TID [facility] Last Admin: 07/24/19 06:57 Dose: 100 mg Doxazosin Mesylate (Cardura -) 4 mg PO DAILY [facility] Last Admin: 07/24/19 10:19 Dose: 4 mg Fentanyl (Sublimaze Injection -) 25 mcg IVPUSH [id number] PRN PRN Reason: PAIN-PACU ORDER X 4 DOSES ONLY Furosemide (Lasix -) 80 mg PO DAILY [facility] Last Admin: 07/24/19 10:18 Dose: 80 mg Gabapentin (Neurontin -) 300 mg PO DAILY [facility] Last Admin: 07/24/19 10:18 Dose: 300 mg Heparin Sodium (Porcine) (Heparin -) 5,000 unit SQ TID [facility] Last Admin: 07/24/19 06:57 Dose: 5,000 unit Hydralazine HCl (Apresoline -) 10 mg PO BID [facility] Last Admin: 07/24/19 10:18 Dose: 10 mg Piperacillin Sod/Tazobactam (Sod 2.25 gm/ Dextrose) 50 mls @ 100 mls/hr IVPB Q8H-IV [facility]; Protocol Last Admin: 07/24/19 10:17 Dose: 100 mls/hr Insulin Aspart (Novolog Vial Sliding Scale -) 1 vial SQ [facility]; Protocol Last Admin: 07/24/19 12:44 Dose: 4 unit Insulin Detemir (Levemir Vial) 30 units SQ [facility] Last Admin: 07/23/19 22:54 Dose: 30 units Mupirocin (Bactroban Ointment (For Decolonization) -) 1 applic NS BID [facility] Stop: 07/27/19 21:59 Last Admin: 07/24/19 12:44 Dose: Not Given Ondansetron HCl (Zofran Injection) 4 mg IVPUSH Q6H PRN PRN Reason: NAUSEA Oxycodone HCl (Roxicodone -) 10 mg PO Q6H PRN PRN Reason: PAIN LEVEL 7 - 10 Last Admin: 07/22/19 14:51 Dose: 10 mg Pantoprazole Sodium (Protonix -) 40 mg PO DAILY [facility] Last Admin: 07/24/19 10:18 Dose: 40 mg Polyethylene Glycol (Miralax (For Daily Use) -) 17 gm PO DAILY [facility] Last Admin: 07/24/19 10:20 Dose: 17 gm Senna (Senna -) 1 tab PO [facility] Last Admin: 07/23/19 21:59 Dose: 1 tab Sodium Bicarbonate (Sodium Bicarbonate -) 1,300 mg PO BID [facility] Last Admin: 07/24/19 10:19 Dose: 1,300 mg - Objective Vital Signs: Vital Signs Temperature 98.1 F 07/24/19 10:00 Pulse Rate 72 07/24/19 13:10 Respiratory Rate 18 07/24/19 13:10 Blood Pressure 156/78 07/24/19 13:10 O2 Sat by Pulse Oximetry (%) 96 07/24/19 08:17 Constitutional: Yes: No Distress, Calm Cardiovascular: Yes: Regular Rate and Rhythm Respiratory: Yes: Regular Gastrointestinal: Yes: Normal Bowel Sounds, Soft, Abdomen, Obese Extremities: Yes: WNL Integumentary: Yes: WNL Wound/Incision: Yes: Other (Dressing intact) Neurological: Yes: Alert, Oriented Labs: CBC, BMP 07/24/19 06:25 07/24/19 06:00 Microbiology 07/22/19 09:37 Abscess Gram Stain - Final 07/22/19 09:37 Abscess Wound Culture - Final Escherichia Coli 07/18/19 11:00 Blood - Peripheral Venous Blood Culture - Final NO GROWTH AFTER 5 DAYS INCUBATION 07/18/19 11:30 Blood - Peripheral Venous Blood Culture - Final NO GROWTH AFTER 5 DAYS INCUBATION 07/19/19 13:20 Urine - Urostomy Bag Urine Culture - Final Escherichia Coli [facility] Enterococcus Faecalis Enterococcus Faecium 07/18/19 09:00 Buttock - Left Gram Stain - Final 07/18/19 09:00 Buttock - Left Wound Culture - Final Escherichia Coli Staphylococcus Coagulase Neg Diphtheroid/Corynebacterium Enterococcus Faecium 07/18/19 13:03 Urine - Urine Clean Catch Urine Culture - Final Contaminated: Please Repeat Problem List - Problems (1) COPD (chronic obstructive pulmonary disease) Code(s): J44.9 - CHRONIC OBSTRUCTIVE PULMONARY DISEASE, UNSPECIFIED (2) Diabetes Code(s): E11.9 - TYPE 2 DIABETES MELLITUS WITHOUT COMPLICATIONS (3) History of CVA (cerebrovascular accident) Code(s): Z86.73 - PRSNL HX OF TIA (TIA), AND CEREB INFRC W/O RESID DEFICITS (4) MARLON (obstructive sleep apnea) Code(s): G47.33 - OBSTRUCTIVE SLEEP APNEA (ADULT) (PEDIATRIC) (5) Perianal abscess Code(s): K61.0 - ANAL ABSCESS (6) Acute on chronic kidney failure Code(s): N17.9 - ACUTE KIDNEY FAILURE, UNSPECIFIED; N18.9 - CHRONIC KIDNEY DISEASE, UNSPECIFIED Qualifiers: Acute renal failure type: unspecified Chronic kidney disease stage: stage 4 (severe) Qualified Code(s): N17.9 - Acute kidney failure, unspecified; N18.4 - Chronic kidney disease, stage 4 (severe) (7) H/O total cystectomy Code(s): Z98.89 - OTHER SPECIFIED POSTPROCEDURAL STATES * DO NOT USE * Assessment/Plan Perianal abscess s/p I+D Leukocytosis -- wound culture results noted -- continue Zosyn for now, will de-escalate if continues to improve -- wbc normal, pt afebrile -- continue wound care
[2019-07-24] MEDS ORDERED: PT OWN MED DRAWER 7, Y5N ONE (21:49)
[2019-07-24] MEDS: SENNOSIDES 8.6MG TABLET (FP) PO SCH (21:51)
[2019-07-24] MEDS: ATORVASTATIN CA 10 MG TABLET (FP) PO SCH (21:53)
[2019-07-24] MEDS: INSULIN (LEVEMIR) 100 UNITS/ML UNITS SQ SCH (21:53)
[2019-07-24] MEDS: CHLORHEXIDINE GLUCONATE 4% CLEANSER FOR DECOLONIZATION TP SCH (21:53)
[2019-07-24] MEDS ORDERED: ONDANSETRON 4 MG/2 ML VIAL IVPUSH PRN (23:22)
[2019-07-24] MEDS ORDERED: oxyCODONE HCL 5 MG TABLET PO PRN (23:22)
[2019-07-24] MEDS ORDERED: ALBUTEROL SO4 2.5/IPRATROPIUM 0.5 INH SOL 3 ML VIAL.NEB. NEB PRN (23:22)
[2019-07-25] MEDS ORDERED: DEXTROSE 5%-WATER - 50 ML IVPB ONE ×2 (01:46→10:07)
[2019-07-25] MEDS ORDERED: PIPERACILLIN/TAZOBACTAM 2.25 GM VIAL IVPB ONE ×2 (01:46→10:06)
[2019-07-25] MEDS: PIPERACILLIN/TAZOB 2.25 GM 2.25 GM in DEXTROSE 5%-WATER - 50 ML IVPB SCH ×2 (02:12→10:12)
[2019-07-25] MEDS: HEPARIN NA (PORCINE) 5,000 UNITS/ML 1ML VIAL SQ SCH ×3 (06:47→21:56)
[2019-07-25] MEDS: INSULIN SLIDING SCALE (NOVOLOG) 1 VIAL SQ SCH ×4 (06:47→21:54)
[2019-07-25 07:03] LABS: BASO % 0.8 % (0-2.0); EOS % 4.7 % (0-4.5); HEMATOCRIT 34.5 % (35.4-49); HEMOGLOBIN 11.6 GM/dL (11.7-16.9); LYMPH % 13.4 % (8-40); MCH 27.5 pg (25.7-33.7); MCHC 33.6 g/dl (32.0-35.9); MEAN CELL VOLUME 81.9 fl (80-96); MEAN PLT VOLUME 8.2 fl (7.5-11.1); MONO % 5.6 % (3.8-10.2); NEUT % 75.5 % (42.8-82.8); PLATELET COUNT 313 K/MM3 (134-434); RBC 4.21 M/mm3 (4.00-5.60); WHITE BLOOD COUNT 7.6 K/mm3 (4.0-10.0)
[2019-07-25] MEDS: DOCUSATE SODIUM 100 MG CAPSULE (FP) PO SCH ×3 (07:41→21:53)
[2019-07-25 07:49] LABS: ALBUMIN 3.2 g/dl (3.4-5.0); BILIRUBIN,TOTAL 0.3 mg/dL (0.2-1); BLOOD UREA NITROGEN 49.7 mg/dL (7-18); CALCIUM 9.5 mg/dL (8.5-10.1); CREATININE 3.4 mg/dL (0.55-1.3); MAGNESIUM 2.3 mg/dL (1.8-2.4); POTASSIUM 3.9 mmol/L (3.5-5.1); TOT PROT 7.2 g/dl (6.4-8.2)
--- NOTE | 2019-07-25 08:59 | PN ---
Progress Note, Physician Chief Complaint: POD #3 I& D c/o "rash" on back. I& D site tender to touch, minimal drainage History of Present Illness: Patient is a 68 year old male who presents to the ED on 07/18/2019 with left lower buttocks abscess. His past medical history includes bladder CA status post urostomy 2 years ago, diabetes, baseline renal insufficiency, hyperglycemia. Patient also has history of stroke, once in 2013 and again on 2014 when ASA was held for procedure. - Current Medication List Current Medications: Active Medications Albuterol/Ipratropium (Duoneb -) 1 amp NEB Q6H PRN PRN Reason: SHORTNESS OF BREATH Amlodipine Besylate (Norvasc -) 5 mg PO DAILY [facility] Last Admin: 07/24/19 12:43 Dose: 5 mg Aspirin (Ecotrin -) 81 mg PO DAILY [facility] Atorvastatin Calcium (Lipitor -) 10 mg PO HS [facility] Budesonide/Formoterol Fumarate (Symbicort 160/4.5mcg -) 1 puff IH BID [facility] Cholecalciferol (Vitamin D3 -) 1,000 unit PO DAILY [facility] Cyanocobalamin (Vitamin B12 -) 1,000 mcg PO DAILY [facility] Docusate Sodium (Colace -) 100 mg PO TID [facility] Last Admin: 07/25/19 07:41 Dose: Not Given Doxazosin Mesylate (Cardura -) 4 mg PO DAILY [facility] Furosemide (Lasix -) 80 mg PO DAILY [facility] Gabapentin (Neurontin -) 300 mg PO DAILY [facility] Heparin Sodium (Porcine) (Heparin -) 5,000 unit SQ TID [facility] Last Admin: 07/25/19 06:47 Dose: 5,000 unit Hydralazine HCl (Apresoline -) 10 mg PO BID [facility] Piperacillin Sod/Tazobactam (Sod 2.25 gm/ Dextrose) 50 mls @ 100 mls/hr IVPB Q8H-IV [facility]; Protocol Last Admin: 07/25/19 02:12 Dose: 100 mls/hr Insulin Aspart (Novolog Vial Sliding Scale -) 1 vial SQ ACHS [facility]; Protocol Last Admin: 07/25/19 06:47 Dose: 6 units Insulin Detemir (Levemir Vial) 30 units SQ HS [facility] Ondansetron HCl (Zofran Injection) 4 mg IVPUSH Q6H PRN PRN Reason: NAUSEA Oxycodone HCl (Roxicodone -) 10 mg PO Q6H PRN PRN Reason: PAIN LEVEL 7 - 10 Pantoprazole Sodium (Protonix -) 40 mg PO DAILY [facility] Polyethylene Glycol (Miralax (For Daily Use) -) 17 gm PO DAILY [facility] Senna (Senna -) 1 tab PO HS [facility] Sodium Bicarbonate (Sodium Bicarbonate -) 1,300 mg PO BID [facility] - Objective Vital Signs: Vital Signs Temperature 97.6 F 07/25/19 06:00 Pulse Rate 89 07/25/19 06:00 Respiratory Rate 24 H 07/25/19 06:00 Blood Pressure 149/75 07/25/19 06:00 O2 Sat by Pulse Oximetry (%) 95 07/25/19 08:06 Additional Findings/Remarks: Constitutional: Yes: Well Nourished, No Distress, Calm Eyes: Yes: WNL, Conjunctiva Clear HENT: Yes: WNL, Atraumatic, Normocephalic Neck: Yes: WNL, Supple, Trachea Midline Cardiovascular: Yes: WNL, Regular Rate and Rhythm Respiratory: Yes: WNL, Regular, CTA Bilaterally Gastrointestinal: Yes: WNL, Normal Bowel Sounds ...Rectal Exam: Yes: Deferred Genitourinary: Yes: Other (urostomy noted) Breast(s): Yes: WNL Musculoskeletal: Yes: WNL Edema: Yes Edema: LLE: Trace, RLE: Trace Peripheral Pulses WNL: Yes Peripheral Pulses: Left Radial: 2+, Right Radial: 2+, Left Doralis Pedis: 2+, Right Dorsalis Pedis: 2+, Left Femoral: 2+, Right Femoral: 2+ Integumentary: Yes: WNL Wound/Incision: Yes: Clean/Dry (left buttock) Minimal drainage overnight Neurological: Yes: WNL, Alert, Oriented ...Motor Strength: WNL Psychiatric: Yes: WNL Labs: CBC, BMP 07/25/19 06:15 07/25/19 06:15 Problem List - Problems (1) Acute kidney injury Assessment/Plan: Cr 3.5-slightly higher avoid nephrotoxic agents renal following c/w sodium josh c/w lasix @ 80mg Code(s): N17.9 - ACUTE KIDNEY FAILURE, UNSPECIFIED (2) Abscess of buttock, left Assessment/Plan: S/P ID of left buttock packing removed by Dr Sergio hwang as needed intro-op cx sent -growing Ecoli-sensitivities pending completed course zosyn will monitor off ID following Code(s): L02.31 - CUTANEOUS ABSCESS OF BUTTOCK (3) COPD (chronic obstructive pulmonary disease) Assessment/Plan: c/w duonebs supplemental O2 prn Cpap as needed-states he doesnt like the machine here and will use his machine when he returns to home Code(s): J44.9 - CHRONIC OBSTRUCTIVE PULMONARY DISEASE, UNSPECIFIED (4) History of CVA (cerebrovascular accident) Assessment/Plan: history of, no active issues Code(s): Z86.73 - PRSNL HX OF TIA (TIA), AND CEREB INFRC W/O RESID DEFICITS (5) Morbid obesity Assessment/Plan: counseled on weight loss Code(s): E66.01 - MORBID (SEVERE) OBESITY DUE TO EXCESS CALORIES (6) MARLON (obstructive sleep apnea) Assessment/Plan: uses CPAP at home, IPAP 12, FIO2 30% Code(s): G47.33 - OBSTRUCTIVE SLEEP APNEA (ADULT) (PEDIATRIC) (7) Prophylactic measure Assessment/Plan: FEN adequate PO intake diabetic diet monitor electrolytes DVT heaprin sq Dispo maintain on tele full code discharge planning-if Cr trends down possible dc tomorrow now off abx Code(s): Z29.9 - ENCOUNTER FOR PROPHYLACTIC MEASURES, UNSPECIFIED (8) History of urostomy Assessment/Plan: s/p Bladder Ca urine with esbl most likely colinization Code(s): Z98.890 - OTHER SPECIFIED POSTPROCEDURAL STATES (9) Hypertension Assessment/Plan: BP better controlled with addition of norvasc c/w norvasc 5 mg c/w hydralazine Code(s): I10 - ESSENTIAL (PRIMARY) HYPERTENSION Qualifiers: Hypertension type: essential hypertension Qualified Code(s): I10 - Essential (primary) hypertension Visit type - Emergency Visit Emergency Visit: Yes ED Registration Date: 07/18/19 Care time: The patient presented to the Emergency Department on the above date and was hospitalized for further evaluation of their emergent condition. - New Patient This patient is new to me today: No - Critical Care Critical Care patient: No - Discharge Referral Referred to [facility] No
[2019-07-25] MEDS ORDERED: MUPIROCIN 2% TOPICAL OINTMENT FOR DECOLONIZATION NS SCH (10:00)
[2019-07-25] MEDS ORDERED: FUROSEMIDE 40 MG TABLET (FP) PO SCH (10:00)
[2019-07-25] MEDS: amLODIPine BESYLATE 5 MG TABLET (FP) PO SCH (10:10)
[2019-07-25] MEDS: GABAPENTIN 300 MG CAPSULE (FP) PO SCH (10:10)
[2019-07-25] MEDS: SODIUM BICARBONATE 650 MG TABLET PO SCH ×2 (10:10→21:54)
[2019-07-25] MEDS: POLYETHYLENE GLYCOL 3350 119 GM BTL PO SCH (10:11)
[2019-07-25] MEDS: CYANOCOBALAMIN 1,000 MCG TABLET (FP) PO SCH (10:11)
[2019-07-25] MEDS: ASPIRIN COATED 81 MG TABLET.EC PO SCH (10:11)
[2019-07-25] MEDS: CHOLECALCIFEROL (VIT D3) 1,000 UNIT (25 MCG) TABLET PO SCH (10:11)
[2019-07-25] MEDS: PANTOPRAZOLE 40 MG TABLET (FP) PO SCH (10:11)
[2019-07-25] MEDS: BUDESONIDE/FORMETEROL FUMARATE 160/4.5 mcg INHALER IH SCH ×2 (10:12→21:58)
[2019-07-25] MEDS ORDERED: PT OWN MED DRAWER 7, Y5N ONE ×2 (10:15→20:32)
[2019-07-25] MEDS: hydrALAZINE HCL 10 MG TABLET PO SCH ×2 (10:18→21:56)
[2019-07-25] MEDS: DOXAZOSIN MESYLATE 4 MG TABLET PO SCH (10:19)
--- NOTE | 2019-07-25 10:22 | PN ---
Progress Note (short form) - Note Progress Note: Feels OK today. Did not use CPAP overnight. Intake & Output 07/22/19 07/23/19 07/24/19 07/25/19 23:59 23:59 23:59 23:59 Intake Total 1140 1220 1000 50 Output Total 3285 3200 3650 300 Balance -2145 -1980 -2650 -250 Last Vital Signs Temp Pulse Resp BP Pulse Ox 97.6 F 89 24 H 149/75 95 07/25/19 06:00 07/25/19 06:00 07/25/19 06:00 07/25/19 06:00 07/25/19 08:06 Active Medications Albuterol/Ipratropium (Duoneb -) 1 amp NEB Q6H PRN PRN Reason: SHORTNESS OF BREATH Amlodipine Besylate (Norvasc -) 5 mg PO DAILY [facility] Last Admin: 07/25/19 10:10 Dose: 5 mg Aspirin (Ecotrin -) 81 mg PO DAILY [facility] Last Admin: 07/25/19 10:11 Dose: 81 mg Atorvastatin Calcium (Lipitor -) 10 mg PO [facility] Budesonide/Formoterol Fumarate (Symbicort 160/4.5mcg -) 1 puff IH BID [facility] Last Admin: 07/25/19 10:12 Dose: 1 puff Cholecalciferol (Vitamin D3 -) 1,000 unit PO DAILY [facility] Last Admin: 07/25/19 10:11 Dose: 1,000 unit Cyanocobalamin (Vitamin B12 -) 1,000 mcg PO DAILY [facility] Last Admin: 07/25/19 10:11 Dose: 1,000 mcg Docusate Sodium (Colace -) 100 mg PO TID [facility] Last Admin: 07/25/19 07:41 Dose: Not Given Doxazosin Mesylate (Cardura -) 4 mg PO DAILY [facility] Last Admin: 07/25/19 10:19 Dose: 4 mg Furosemide (Lasix -) 80 mg PO DAILY [facility] Gabapentin (Neurontin -) 300 mg PO DAILY [facility] Last Admin: 07/25/19 10:10 Dose: 300 mg Heparin Sodium (Porcine) (Heparin -) 5,000 unit SQ TID [facility] Last Admin: 07/25/19 06:47 Dose: 5,000 unit Hydralazine HCl (Apresoline -) 10 mg PO BID [facility] Last Admin: 07/25/19 10:18 Dose: 10 mg Piperacillin Sod/Tazobactam (Sod 2.25 gm/ Dextrose) 50 mls @ 100 mls/hr IVPB Q8H-IV [facility]; Protocol Last Admin: 07/25/19 10:12 Dose: 100 mls/hr Insulin Aspart (Novolog Vial Sliding Scale -) 1 vial SQ [facility]; Protocol Last Admin: 07/25/19 06:47 Dose: 6 units Insulin Detemir (Levemir Vial) 30 units SQ [facility] Ondansetron HCl (Zofran Injection) 4 mg IVPUSH Q6H PRN PRN Reason: NAUSEA Oxycodone HCl (Roxicodone -) 10 mg PO Q6H PRN PRN Reason: PAIN LEVEL 7 - 10 Pantoprazole Sodium (Protonix -) 40 mg PO DAILY [facility] Last Admin: 07/25/19 10:11 Dose: 40 mg Polyethylene Glycol (Miralax (For Daily Use) -) 17 gm PO DAILY [facility] Last Admin: 07/25/19 10:11 Dose: 17 gm Senna (Senna -) 1 tab PO [facility] Sodium Bicarbonate (Sodium Bicarbonate -) 1,300 mg PO BID [facility] Last Admin: 07/25/19 10:10 Dose: 1,300 mg Constitutional: Yes: No Distress, Calm Eyes: Yes: Conjunctiva Clear, EOM Intact HENT: Yes: Atraumatic, Normocephalic Neck: Yes: Supple, Trachea Midline Cardiovascular: Yes: Regular Rate and Rhythm Respiratory: Yes: CTA Bilaterally, Diminished. No: Accessory Muscle Use, Rales , Rhonchi, SOB, SOB on Exertion, Stridor, Tachypnea, Wheezes ...Inspection: Yes: WNL ...Clubbing: No Gastrointestinal: Yes: Normal Bowel Sounds, Soft, Abdomen, Obese Renal/: Yes: WNL Musculoskeletal: Yes: Dressing Extremities: Yes: WNL Edema: No Peripheral Pulses WNL: Yes Integumentary: Yes: Other (left buttock ) Neurological: Yes: WNL, Alert, Oriented ...Motor Strength: WNL Psychiatric: Yes: WNL, Alert, Oriented Labs: Laboratory Results - last 24 hr 07/24/19 07/24/19 07/24/19 12:35 17:42 21:34 WBC RBC Hgb Hct MCV MCH MCHC RDW Plt Count MPV Absolute Neuts (auto) Neutrophils % Lymphocytes % Monocytes % Eosinophils % Basophils % Nucleated RBC % Sodium Potassium Chloride Carbon Dioxide Anion Gap BUN Creatinine Est GFR (CKD-EPI)AfAm Est GFR (CKD-EPI)NonAf POC Glucometer 160 233 167 Random Glucose Calcium Magnesium Total Bilirubin AST ALT Alkaline Phosphatase Total Protein Albumin 07/25/19 07/25/19 07/25/19 06:15 06:15 06:45 WBC 7.6 RBC 4.21 Hgb 11.6 L Hct 34.5 L MCV 81.9 MCH 27.5 MCHC 33.6 RDW 16.0 H Plt Count 313 MPV 8.2 Absolute Neuts (auto) 5.7 Neutrophils % 75.5 Lymphocytes % 13.4 Monocytes % 5.6 Eosinophils % 4.7 H Basophils % 0.8 Nucleated RBC % 0 Sodium 141 Potassium 3.9 Chloride 111 H Carbon Dioxide 19 L Anion Gap 12 BUN 49.7 H Creatinine 3.4 H Est GFR (CKD-EPI)AfAm 20.04 Est GFR (CKD-EPI)NonAf 17.29 POC Glucometer 212 Random Glucose 178 H Calcium 9.5 Magnesium 2.3 Total Bilirubin 0.3 AST 30 ALT 50 Alkaline Phosphatase 74 Total Protein 7.2 Albumin 3.2 L Problem List - Problems (1) Morbid obesity Code(s): E66.01 - MORBID (SEVERE) OBESITY DUE TO EXCESS CALORIES (2) Abscess of buttock, left Code(s): L02.31 - CUTANEOUS ABSCESS OF BUTTOCK (3) Anemia Code(s): D64.9 - ANEMIA, UNSPECIFIED (4) Chronic kidney disease Code(s): N18.9 - CHRONIC KIDNEY DISEASE, UNSPECIFIED Qualifiers: Chronic kidney disease stage: stage 4 (severe) Qualified Code(s): N18.4 - Chronic kidney disease, stage 4 (severe) (5) Cough Code(s): R05 - COUGH (6) Diabetes Code(s): E11.9 - TYPE 2 DIABETES MELLITUS WITHOUT COMPLICATIONS Qualifiers: Diabetes mellitus type: type 2 Diabetes mellitus usp insulin use: with termite control technician use Diabetes mellitus complication status: with kidney complications Diabetes mellitus complication detail: with chronic kidney disease Chronic kidney disease stage: stage 4 (severe) Qualified Code(s): E11.22 - Type 2 diabetes mellitus with diabetic chronic kidney disease; N18.4 - Chronic kidney disease, stage 4 (severe); Z79.4 - termite helper (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 Assessment/Plan Patient requesting to DC PAP. A home device: set at CPAP @ 13 cm H2O will be arranged. O2 as needed ABX per ID Local wound care VTE prophylaxis BD [place] PRN Dr Rios Problem List - Problems (1) Morbid obesity Code(s): E66.01 - MORBID (SEVERE) OBESITY DUE TO EXCESS CALORIES (2) Abscess of buttock, left Code(s): L02.31 - CUTANEOUS ABSCESS OF BUTTOCK (3) Anemia Code(s): D64.9 - ANEMIA, UNSPECIFIED (4) Chronic kidney disease Code(s): N18.9 - CHRONIC KIDNEY DISEASE, UNSPECIFIED Qualifiers: Chronic kidney disease stage: stage 4 (severe) Qualified Code(s): N18.4 - Chronic kidney disease, stage 4 (severe) (5) Cough Code(s): R05 - COUGH (6) Diabetes Code(s): E11.9 - TYPE 2 DIABETES MELLITUS WITHOUT COMPLICATIONS Qualifiers: Diabetes mellitus type: type 2 Diabetes mellitus termite control technician insulin use: with termite control technician use Diabetes mellitus complication status: with kidney complications Diabetes mellitus complication detail: with chronic kidney disease Chronic kidney disease stage: stage 4 (severe) Qualified Code(s): E11.22 - Type 2 diabetes mellitus with diabetic chronic kidney disease; N18.4 - Chronic kidney disease, stage 4 (severe); Z79.4 - termite helper (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
--- NOTE | 2019-07-25 11:25 | PN ---
Progress Note, Physician History of Present Illness: stable no new issues c/o of dirrhoea - Current Medication List Current Medications: Active Medications Albuterol/Ipratropium (Duoneb -) 1 amp NEB Q6H PRN PRN Reason: SHORTNESS OF BREATH Amlodipine Besylate (Norvasc -) 5 mg PO DAILY [facility] Last Admin: 07/25/19 10:10 Dose: 5 mg Aspirin (Ecotrin -) 81 mg PO DAILY [facility] Last Admin: 07/25/19 10:11 Dose: 81 mg Atorvastatin Calcium (Lipitor -) 10 mg PO [facility] Budesonide/Formoterol Fumarate (Symbicort 160/4.5mcg -) 1 puff IH BID [facility] Last Admin: 07/25/19 10:12 Dose: 1 puff Cholecalciferol (Vitamin D3 -) 1,000 unit PO DAILY [facility] Last Admin: 07/25/19 10:11 Dose: 1,000 unit Cyanocobalamin (Vitamin B12 -) 1,000 mcg PO DAILY [facility] Last Admin: 07/25/19 10:11 Dose: 1,000 mcg Docusate Sodium (Colace -) 100 mg PO TID [facility] Last Admin: 07/25/19 07:41 Dose: Not Given Doxazosin Mesylate (Cardura -) 4 mg PO DAILY [facility] Last Admin: 07/25/19 10:19 Dose: 4 mg Furosemide (Lasix -) 80 mg PO DAILY [facility] Gabapentin (Neurontin -) 300 mg PO DAILY [facility] Last Admin: 07/25/19 10:10 Dose: 300 mg Heparin Sodium (Porcine) (Heparin -) 5,000 unit SQ TID [facility] Last Admin: 07/25/19 06:47 Dose: 5,000 unit Hydralazine HCl (Apresoline -) 10 mg PO BID [facility] Last Admin: 07/25/19 10:18 Dose: 10 mg Piperacillin Sod/Tazobactam (Sod 2.25 gm/ Dextrose) 50 mls @ 100 mls/hr IVPB Q8H-IV [facility]; Protocol Last Admin: 07/25/19 10:12 Dose: 100 mls/hr Insulin Aspart (Novolog Vial Sliding Scale -) 1 vial SQ [facility]; Protocol Last Admin: 07/25/19 06:47 Dose: 6 units Insulin Detemir (Levemir Vial) 30 units SQ [facility] Ondansetron HCl (Zofran Injection) 4 mg IVPUSH Q6H PRN PRN Reason: NAUSEA Oxycodone HCl (Roxicodone -) 10 mg PO Q6H PRN PRN Reason: PAIN LEVEL 7 - 10 Pantoprazole Sodium (Protonix -) 40 mg PO DAILY [facility] Last Admin: 07/25/19 10:11 Dose: 40 mg Polyethylene Glycol (Miralax (For Daily Use) -) 17 gm PO DAILY [facility] Last Admin: 07/25/19 10:11 Dose: 17 gm Senna (Senna -) 1 tab PO [facility] Sodium Bicarbonate (Sodium Bicarbonate -) 1,300 mg PO BID [facility] Last Admin: 07/25/19 10:10 Dose: 1,300 mg - Objective Vital Signs: Vital Signs Temperature 98 F 07/25/19 10:00 Pulse Rate 90 07/25/19 10:00 Respiratory Rate 18 07/25/19 10:00 Blood Pressure 141/70 07/25/19 10:00 O2 Sat by Pulse Oximetry (%) 95 07/25/19 08:06 Constitutional: Yes: No Distress, Calm Cardiovascular: Yes: S1, S2 Respiratory: Yes: Regular, CTA Bilaterally Gastrointestinal: Yes: Normal Bowel Sounds, Soft Musculoskeletal: Yes: WNL Extremities: Yes: Other Neurological: Yes: Alert, Oriented Psychiatric: Yes: Alert, Oriented Labs: CBC, BMP 07/25/19 06:15 07/25/19 06:15 Assessment/Plan 68 year old gentleman with history of CKD stage 4, urethral diverison with ileual conduit, COPD, hypertension, hyperlipideima who presented from home with perirectal abcess with MEKA on CKD. 1. Acute on chronic renal insufficiency 2. CKD stage 4 3. Acute on Chronic metabolic acidosis 4. Anemia 5. Perirectal abcess site looks clean and dry plan will stop abx rest as per the team
--- NOTE | 2019-07-25 12:58 | PN ---
Progress Note (short form) - Note Progress Note: Renal follow up for MEKA on CKD seen and examined at the bedside reports mild HOLLY no chest pain or shortness of breath at rest no abd pain making urine no diarrhea no fever or chills Vital Signs Temperature 98.7 F 07/25/19 14:43 Pulse Rate 80 07/25/19 14:43 Respiratory Rate 20 07/25/19 14:43 Blood Pressure 121/66 07/25/19 14:43 O2 Sat by Pulse Oximetry (%) 95 07/25/19 08:06 Intake & Output 07/22/19 07/23/19 07/24/19 07/25/19 23:59 23:59 23:59 23:59 Intake Total 1140 1220 1000 550 Output Total 3285 3200 3650 600 Balance -2145 -1980 -2650 -50 NAD RRR CTA no rales or wheeze soft, obese, NT/ND + trace to mild edema in LE CBC, BMP 07/25/19 06:15 07/25/19 06:15 Current Medications Albuterol/Ipratropium (Duoneb -) 1 amp NEB Q6H PRN PRN Reason: SHORTNESS OF BREATH Amlodipine Besylate (Norvasc -) 5 mg PO DAILY [facility] Last Admin: 07/25/19 10:10 Dose: 5 mg Aspirin (Ecotrin -) 81 mg PO DAILY [facility] Last Admin: 07/25/19 10:11 Dose: 81 mg Atorvastatin Calcium (Lipitor -) 10 mg PO [facility] Budesonide/Formoterol Fumarate (Symbicort 160/4.5mcg -) 1 puff IH BID [facility] Last Admin: 07/25/19 10:12 Dose: 1 puff Cholecalciferol (Vitamin D3 -) 1,000 unit PO DAILY [facility] Last Admin: 07/25/19 10:11 Dose: 1,000 unit Cyanocobalamin (Vitamin B12 -) 1,000 mcg PO DAILY [facility] Last Admin: 07/25/19 10:11 Dose: 1,000 mcg Docusate Sodium (Colace -) 100 mg PO TID [facility] Last Admin: 07/25/19 14:41 Dose: 100 mg Doxazosin Mesylate (Cardura -) 4 mg PO DAILY [facility] Last Admin: 07/25/19 10:19 Dose: 4 mg Furosemide (Lasix -) 80 mg PO DAILY [facility] Gabapentin (Neurontin -) 300 mg PO DAILY [facility] Last Admin: 07/25/19 10:10 Dose: 300 mg Heparin Sodium (Porcine) (Heparin -) 5,000 unit SQ TID [facility] Last Admin: 07/25/19 14:42 Dose: 5,000 unit Hydralazine HCl (Apresoline -) 10 mg PO BID [facility] Last Admin: 07/25/19 10:18 Dose: 10 mg Insulin Aspart (Novolog Vial Sliding Scale -) 1 vial SQ [facility]; Protocol Last Admin: 07/25/19 16:40 Dose: 6 units Insulin Detemir (Levemir Vial) 30 units SQ HS [facility] Ondansetron HCl (Zofran Injection) 4 mg IVPUSH Q6H PRN PRN Reason: NAUSEA Oxycodone HCl (Roxicodone -) 10 mg PO Q6H PRN PRN Reason: PAIN LEVEL 7 - 10 Pantoprazole Sodium (Protonix -) 40 mg PO DAILY [facility] Last Admin: 07/25/19 10:11 Dose: 40 mg Polyethylene Glycol (Miralax (For Daily Use) -) 17 gm PO DAILY [facility] Last Admin: 07/25/19 10:11 Dose: 17 gm Senna (Senna -) 1 tab PO [facility] Sodium Bicarbonate (Sodium Bicarbonate -) 1,300 mg PO BID [facility] Last Admin: 07/25/19 10:10 Dose: 1,300 mg 68 year old gentleman with history of CKD stage 4, urethral diverison with ileual conduit, COPD, hypertension, hyperlipideima who presented from home with perirectal abcess with MEKA on CKD. 1. Acute on chronic renal insufficiency 2. CKD stage 4 3. Acute on Chronic metabolic acidosis 4. Anemia 5. Perirectal abcess Renal function improved overall. Noted slight rise in Cr form 3 to 3.5. Would continue daily diuretics for now as pt has signs of volume overload continue oral sodium bicarbonate Trend renal function and electrolytes daily Thank you Freddie Forbes DO
[2019-07-25] MEDS ORDERED: FUROSEMIDE 40 MG TABLET (FP) PO ONE (17:17)
[2019-07-25] MEDS ORDERED: INSULIN (NOVOLOG) ASPART 100 UNITS/ML 10ML VIAL ONE (20:33)
[2019-07-25] MEDS ORDERED: INSULIN (LEVEMIR) 100 UNITS/ML UNITS SQ SCH (22:00)
[2019-07-25] MEDS ORDERED: CHLORHEXIDINE GLUCONATE 4% CLEANSER FOR DECOLONIZATION TP SCH (22:00)
[2019-07-25] MEDS ORDERED: ATORVASTATIN CA 10 MG TABLET (FP) PO SCH (22:00)
[2019-07-25] MEDS ORDERED: SENNOSIDES 8.6MG TABLET (FP) PO SCH (22:00)
[2019-07-26] MEDS: DOCUSATE SODIUM 100 MG CAPSULE (FP) PO SCH ×3 (01:04→13:05)
[2019-07-26] MEDS: HEPARIN NA (PORCINE) 5,000 UNITS/ML 1ML VIAL SQ SCH ×2 (06:37→13:05)
[2019-07-26] MEDS: INSULIN SLIDING SCALE (NOVOLOG) 1 VIAL SQ SCH ×2 (06:40→11:19)
[2019-07-26 07:26] LABS: BASO % 0.6 % (0-2.0); HEMATOCRIT 31.1 % (35.4-49); HEMOGLOBIN 10.4 GM/dL (11.7-16.9); LYMPH % 11.6 % (8-40); MCH 27.3 pg (25.7-33.7); MCHC 33.3 g/dl (32.0-35.9); MEAN PLT VOLUME 7.8 fl (7.5-11.1); MONO % 8.2 % (3.8-10.2); NEUT % 74.6 % (42.8-82.8); PLATELET COUNT 282 K/MM3 (134-434); RBC 3.79 M/mm3 (4.00-5.60); RDW 15.8 % (11.9-15.9); WHITE BLOOD COUNT 6.7 K/mm3 (4.0-10.0)
[2019-07-26 07:43] LABS: ALBUMIN 2.8 g/dl (3.4-5.0); BILIRUBIN,TOTAL 0.3 mg/dL (0.2-1); BLOOD UREA NITROGEN 53.1 mg/dL (7-18); CALCIUM 9.1 mg/dL (8.5-10.1); CREATININE 3.3 mg/dL (0.55-1.3); MAGNESIUM 2.5 mg/dL (1.8-2.4); POTASSIUM 3.7 mmol/L (3.5-5.1); TOT PROT 6.2 g/dl (6.4-8.2)
[2019-07-26] MEDS ORDERED: PT OWN MED DRAWER 7, Y5N ONE (08:48)
[2019-07-26] MEDS ORDERED: FUROSEMIDE 40 MG TABLET (FP) PO SCH (10:00)
[2019-07-26] MEDS: CYANOCOBALAMIN 1,000 MCG TABLET (FP) PO SCH (10:11)
[2019-07-26] MEDS: amLODIPine BESYLATE 5 MG TABLET (FP) PO SCH (10:11)
[2019-07-26] MEDS: PANTOPRAZOLE 40 MG TABLET (FP) PO SCH (10:11)
[2019-07-26] MEDS: POLYETHYLENE GLYCOL 3350 119 GM BTL PO SCH (10:11)
[2019-07-26] MEDS: GABAPENTIN 300 MG CAPSULE (FP) PO SCH (10:11)
[2019-07-26] MEDS: CHOLECALCIFEROL (VIT D3) 1,000 UNIT (25 MCG) TABLET PO SCH (10:11)
[2019-07-26] MEDS: SODIUM BICARBONATE 650 MG TABLET PO SCH (10:12)
[2019-07-26] MEDS: DOXAZOSIN MESYLATE 4 MG TABLET PO SCH (10:12)
[2019-07-26] MEDS: hydrALAZINE HCL 10 MG TABLET PO SCH (10:12)
[2019-07-26] MEDS: BUDESONIDE/FORMETEROL FUMARATE 160/4.5 mcg INHALER IH SCH (10:12)
[2019-07-26] MEDS: ASPIRIN COATED 81 MG TABLET.EC PO SCH (10:12)
--- NOTE | 2019-07-26 10:28 | PN ---
Progress Note (short form) - Note Progress Note: OOB to chair. Breathing feels better today. No acute events overnight. Intake & Output 07/23/19 07/24/19 07/25/19 07/26/19 23:59 23:59 23:59 23:59 Intake Total 1220 1000 650 280 Output Total 3200 3650 1100 1100 Balance -1980 -2650 -450 -820 Last Vital Signs Temp Pulse Resp BP Pulse Ox 97.9 F 74 17 128/77 99 07/26/19 06:00 07/26/19 06:00 07/26/19 06:00 07/26/19 06:00 07/25/19 21:00 Active Medications Albuterol/Ipratropium (Duoneb -) 1 amp NEB Q6H PRN PRN Reason: SHORTNESS OF BREATH Amlodipine Besylate (Norvasc -) 5 mg PO DAILY [facility] Last Admin: 07/26/19 10:11 Dose: 5 mg Aspirin (Ecotrin -) 81 mg PO DAILY [facility] Last Admin: 07/26/19 10:12 Dose: 81 mg Atorvastatin Calcium (Lipitor -) 10 mg PO HS [facility] Last Admin: 07/25/19 21:54 Dose: 10 mg Budesonide/Formoterol Fumarate (Symbicort 160/4.5mcg -) 1 puff IH BID [facility] Last Admin: 07/26/19 10:12 Dose: 1 puff Cholecalciferol (Vitamin D3 -) 1,000 unit PO DAILY [facility] Last Admin: 07/26/19 10:11 Dose: 1,000 unit Cyanocobalamin (Vitamin B12 -) 1,000 mcg PO DAILY [facility] Last Admin: 07/26/19 10:11 Dose: 1,000 mcg Docusate Sodium (Colace -) 100 mg PO TID [facility] Last Admin: 07/26/19 06:36 Dose: Not Given Doxazosin Mesylate (Cardura -) 4 mg PO DAILY [facility] Last Admin: 07/26/19 10:12 Dose: 4 mg Furosemide (Lasix -) 80 mg PO DAILY [facility] Last Admin: 07/26/19 10:11 Dose: 80 mg Gabapentin (Neurontin -) 300 mg PO DAILY [facility] Last Admin: 07/26/19 10:11 Dose: 300 mg Heparin Sodium (Porcine) (Heparin -) 5,000 unit SQ TID [facility] Last Admin: 07/26/19 06:37 Dose: 5,000 unit Hydralazine HCl (Apresoline -) 10 mg PO BID [facility] Last Admin: 07/26/19 10:12 Dose: 10 mg Insulin Aspart (Novolog Vial Sliding Scale -) 1 vial SQ [facility]; Protocol Last Admin: 07/26/19 06:40 Dose: 4 units Insulin Detemir (Levemir Vial) 30 units SQ HS [facility] Last Admin: 07/25/19 21:55 Dose: 30 units Ondansetron HCl (Zofran Injection) 4 mg IVPUSH Q6H PRN PRN Reason: NAUSEA Oxycodone HCl (Roxicodone -) 10 mg PO Q6H PRN PRN Reason: PAIN LEVEL 7 - 10 Pantoprazole Sodium (Protonix -) 40 mg PO DAILY [facility] Last Admin: 07/26/19 10:11 Dose: 40 mg Polyethylene Glycol (Miralax (For Daily Use) -) 17 gm PO DAILY [facility] Last Admin: 07/26/19 10:11 Dose: Not Given Senna (Senna -) 1 tab PO [facility] Last Admin: 07/25/19 21:53 Dose: 1 tab Sodium Bicarbonate (Sodium Bicarbonate -) 1,300 mg PO BID [facility] Last Admin: 07/26/19 10:12 Dose: 1,300 mg Constitutional: Yes: No Distress, Calm Eyes: Yes: Conjunctiva Clear, EOM Intact HENT: Yes: Atraumatic, Normocephalic Neck: Yes: Supple, Trachea Midline Cardiovascular: Yes: Regular Rate and Rhythm Respiratory: Yes: CTA Bilaterally, Diminished. No: Accessory Muscle Use, Rales , Rhonchi, SOB, SOB on Exertion, Stridor, Tachypnea, Wheezes ...Inspection: Yes: WNL ...Clubbing: No Gastrointestinal: Yes: Normal Bowel Sounds, Soft, Abdomen, Obese Renal/: Yes: WNL Musculoskeletal: Yes: Dressing Extremities: Yes: WNL Edema: No Peripheral Pulses WNL: Yes Integumentary: Yes: Other (left buttock ) Neurological: Yes: WNL, Alert, Oriented ...Motor Strength: WNL Psychiatric: Yes: WNL, Alert, Oriented Labs: Laboratory Results - last 24 hr 07/25/19 07/25/19 07/25/19 12:10 16:28 21:49 WBC RBC Hgb Hct MCV MCH MCHC RDW Plt Count MPV Absolute Neuts (auto) Neutrophils % Lymphocytes % Monocytes % Eosinophils % Basophils % Nucleated RBC % Sodium Potassium Chloride Carbon Dioxide Anion Gap BUN Creatinine Est GFR (CKD-EPI)AfAm Est GFR (CKD-EPI)NonAf POC Glucometer 165 219 213 Random Glucose Calcium Magnesium Total Bilirubin AST ALT Alkaline Phosphatase Total Protein Albumin 07/26/19 07/26/19 07/26/19 06:00 06:39 06:50 WBC 6.7 RBC 3.79 L Hgb 10.4 L Hct 31.1 L MCV 82.0 MCH 27.3 MCHC 33.3 RDW 15.8 Plt Count 282 MPV 7.8 Absolute Neuts (auto) 5.0 Neutrophils % 74.6 Lymphocytes % 11.6 Monocytes % 8.2 Eosinophils % 5.0 H Basophils % 0.6 Nucleated RBC % 0 Sodium 138 Potassium 3.7 Chloride 111 H Carbon Dioxide 19 L Anion Gap 8 BUN 53.1 H Creatinine 3.3 H Est GFR (CKD-EPI)AfAm 20.77 Est GFR (CKD-EPI)NonAf 17.92 POC Glucometer 180 Random Glucose 187 H Calcium 9.1 Magnesium 2.5 H Total Bilirubin 0.3 AST 31 ALT 48 Alkaline Phosphatase 63 Total Protein 6.2 L Albumin 2.8 L Problem List - Problems (1) Morbid obesity Code(s): E66.01 - MORBID (SEVERE) OBESITY DUE TO EXCESS CALORIES (2) Abscess of buttock, left Code(s): L02.31 - CUTANEOUS ABSCESS OF BUTTOCK (3) Anemia Code(s): D64.9 - ANEMIA, UNSPECIFIED (4) Chronic kidney disease Code(s): N18.9 - CHRONIC KIDNEY DISEASE, UNSPECIFIED Qualifiers: Chronic kidney disease stage: stage 4 (severe) Qualified Code(s): N18.4 - Chronic kidney disease, stage 4 (severe) (5) Cough Code(s): R05 - COUGH (6) Diabetes Code(s): E11.9 - TYPE 2 DIABETES MELLITUS WITHOUT COMPLICATIONS Qualifiers: Diabetes mellitus type: type 2 Diabetes mellitus jail insulin use: with watermelon harvesting supervisor use Diabetes mellitus complication status: with kidney complications Diabetes mellitus complication detail: with chronic kidney disease Chronic kidney disease stage: stage 4 (severe) Qualified Code(s): E11.22 - Type 2 diabetes mellitus with diabetic chronic kidney disease; N18.4 - Chronic kidney disease, stage 4 (severe); Z79.4 - [facility] (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 Assessment/Plan Arrangements being made for a CPAP device @ 13 cm H2O. O2 as needed ABX per ID Local wound care VTE prophylaxis BD [place] PRN Dr Rios Problem List - Problems (1) Morbid obesity Code(s): E66.01 - MORBID (SEVERE) OBESITY DUE TO EXCESS CALORIES (2) Abscess of buttock, left Code(s): L02.31 - CUTANEOUS ABSCESS OF BUTTOCK (3) Anemia Code(s): D64.9 - ANEMIA, UNSPECIFIED (4) Chronic kidney disease Code(s): N18.9 - CHRONIC KIDNEY DISEASE, UNSPECIFIED Qualifiers: Chronic kidney disease stage: stage 4 (severe) Qualified Code(s): N18.4 - Chronic kidney disease, stage 4 (severe) (5) Cough Code(s): R05 - COUGH (6) Diabetes Code(s): E11.9 - TYPE 2 DIABETES MELLITUS WITHOUT COMPLICATIONS Qualifiers: Diabetes mellitus type: type 2 Diabetes mellitus jail insulin use: with watermelon harvesting supervisor use Diabetes mellitus complication status: with kidney complications Diabetes mellitus complication detail: with chronic kidney disease Chronic kidney disease stage: stage 4 (severe) Qualified Code(s): E11.22 - Type 2 diabetes mellitus with diabetic chronic kidney disease; N18.4 - Chronic kidney disease, stage 4 (severe); Z79.4 - termite control representative (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
[2019-07-26 10:36] VITALS: TEMP 98.3
[2019-07-26 11:55] VITALS: BMI 45.1
--- NOTE | 2019-07-26 12:02 | PN ---
Progress Note, Physician History of Present Illness: stable no new issues - Current Medication List Current Medications: Active Medications Albuterol/Ipratropium (Duoneb -) 1 amp NEB Q6H PRN PRN Reason: SHORTNESS OF BREATH Amlodipine Besylate (Norvasc -) 5 mg PO DAILY [facility] Last Admin: 07/26/19 10:11 Dose: 5 mg Aspirin (Ecotrin -) 81 mg PO DAILY [facility] Last Admin: 07/26/19 10:12 Dose: 81 mg Atorvastatin Calcium (Lipitor -) 10 mg PO HS [facility] Last Admin: 07/25/19 21:54 Dose: 10 mg Budesonide/Formoterol Fumarate (Symbicort 160/4.5mcg -) 1 puff IH BID [facility] Last Admin: 07/26/19 10:12 Dose: 1 puff Cholecalciferol (Vitamin D3 -) 1,000 unit PO DAILY [facility] Last Admin: 07/26/19 10:11 Dose: 1,000 unit Cyanocobalamin (Vitamin B12 -) 1,000 mcg PO DAILY [facility] Last Admin: 07/26/19 10:11 Dose: 1,000 mcg Docusate Sodium (Colace -) 100 mg PO TID [facility] Last Admin: 07/26/19 06:36 Dose: Not Given Doxazosin Mesylate (Cardura -) 4 mg PO DAILY [facility] Last Admin: 07/26/19 10:12 Dose: 4 mg Furosemide (Lasix -) 80 mg PO DAILY [facility] Last Admin: 07/26/19 10:11 Dose: 80 mg Gabapentin (Neurontin -) 300 mg PO DAILY [facility] Last Admin: 07/26/19 10:11 Dose: 300 mg Heparin Sodium (Porcine) (Heparin -) 5,000 unit SQ TID [facility] Last Admin: 07/26/19 06:37 Dose: 5,000 unit Hydralazine HCl (Apresoline -) 10 mg PO BID [facility] Last Admin: 07/26/19 10:12 Dose: 10 mg Insulin Aspart (Novolog Vial Sliding Scale -) 1 vial SQ [facility]; Protocol Last Admin: 07/26/19 11:19 Dose: 4 units Insulin Detemir (Levemir Vial) 30 units SQ [facility] Last Admin: 07/25/19 21:55 Dose: 30 units Ondansetron HCl (Zofran Injection) 4 mg IVPUSH Q6H PRN PRN Reason: NAUSEA Oxycodone HCl (Roxicodone -) 10 mg PO Q6H PRN PRN Reason: PAIN LEVEL 7 - 10 Pantoprazole Sodium (Protonix -) 40 mg PO DAILY [facility] Last Admin: 07/26/19 10:11 Dose: 40 mg Polyethylene Glycol (Miralax (For Daily Use) -) 17 gm PO DAILY [facility] Last Admin: 07/26/19 10:11 Dose: Not Given Senna (Senna -) 1 tab PO HS [facility] Last Admin: 07/25/19 21:53 Dose: 1 tab Sodium Bicarbonate (Sodium Bicarbonate -) 1,300 mg PO BID [facility] Last Admin: 07/26/19 10:12 Dose: 1,300 mg - Objective Vital Signs: Vital Signs Temperature 98.3 F 07/26/19 10:00 Pulse Rate 85 07/26/19 10:00 Respiratory Rate 20 07/26/19 10:00 Blood Pressure 147/88 07/26/19 10:00 O2 Sat by Pulse Oximetry (%) 98 07/26/19 09:00 Constitutional: Yes: No Distress, Calm Cardiovascular: Yes: S1, S2 Respiratory: Yes: Regular, CTA Bilaterally Gastrointestinal: Yes: Normal Bowel Sounds, Soft Musculoskeletal: Yes: WNL Extremities: Yes: Other Neurological: Yes: Alert, Oriented Psychiatric: Yes: Alert Labs: CBC, BMP 07/26/19 06:50 07/26/19 06:00 Assessment/Plan 68 year old gentleman with history of CKD stage 4, urethral diverison with ileual conduit, COPD, hypertension, hyperlipideima who presented from home with perirectal abcess with MEKA on CKD. 1. Acute on chronic renal insufficiency 2. CKD stage 4 3. Acute on Chronic metabolic acidosis 4. Anemia 5. Perirectal abcess site looks clean and dry plan continue current mgmt rest as per the team
[2019-07-26 14:12] VITALS: BP 127/71; PULSE 77
--- NOTE | 2019-07-26 14:50 | PN ---
Physical Exam: SUBJECTIVE: Patient seen and examined OBJECTIVE: Vital Signs Period Temp Pulse Resp BP Sys/Argueta Pulse Ox Last 24 Hr 97.9 F-98.7 F 68-88 17-20 127-150/71-88 98-99 GENERAL: The patient is awake, alert, and fully oriented, in no acute distress. HEAD: Normal with no signs of trauma. EYES: PERRL, extraocular movements intact, sclera anicteric, conjunctiva clear. No ptosis. ENT: Ears normal, nares patent, oropharynx clear without exudates, moist mucous membranes. NECK: Trachea midline, full range of motion, supple. LUNGS: Breath sounds equal, clear to auscultation bilaterally, no wheezes, no crackles, no accessory muscle use. HEART: Regular rate and rhythm, S1, S2 without murmur, rub or gallop. ABDOMEN: Soft, nontender, nondistended, normoactive bowel sounds, no guarding, no rebound, no hepatosplenomegaly, no masses. EXTREMITIES: 2+ pulses, warm, well-perfused, no edema. NEUROLOGICAL: Cranial nerves II through XII grossly intact. Normal speech, gait not observed. PSYCH: Normal mood, normal affect. SKIN: Warm, dry, normal turgor, no rashes or lesions noted Laboratory Results - last 24 hr 07/25/19 07/25/19 07/26/19 16:28 21:49 06:00 WBC RBC Hgb Hct MCV MCH MCHC RDW Plt Count MPV Absolute Neuts (auto) Neutrophils % Lymphocytes % Monocytes % Eosinophils % Basophils % Nucleated RBC % Sodium 138 Potassium 3.7 Chloride 111 H Carbon Dioxide 19 L Anion Gap 8 BUN 53.1 H Creatinine 3.3 H Est GFR (CKD-EPI)AfAm 20.77 Est GFR (CKD-EPI)NonAf 17.92 POC Glucometer 219 213 Random Glucose 187 H Calcium 9.1 Magnesium 2.5 H Total Bilirubin 0.3 AST 31 ALT 48 Alkaline Phosphatase 63 Total Protein 6.2 L Albumin 2.8 L 07/26/19 07/26/19 07/26/19 06:39 06:50 11:18 WBC 6.7 RBC 3.79 L Hgb 10.4 L Hct 31.1 L MCV 82.0 MCH 27.3 MCHC 33.3 RDW 15.8 Plt Count 282 MPV 7.8 Absolute Neuts (auto) 5.0 Neutrophils % 74.6 Lymphocytes % 11.6 Monocytes % 8.2 Eosinophils % 5.0 H Basophils % 0.6 Nucleated RBC % 0 Sodium Potassium Chloride Carbon Dioxide Anion Gap BUN Creatinine Est GFR (CKD-EPI)AfAm Est GFR (CKD-EPI)NonAf POC Glucometer 180 168 Random Glucose Calcium Magnesium Total Bilirubin AST ALT Alkaline Phosphatase Total Protein Albumin Active Medications Generic Name Dose Route Start Last Admin Trade Name Freq PRN Reason Stop Dose Admin Albuterol/Ipratropium 1 amp 07/24/19 23:22 Duoneb - NEB Q6H PRN SHORTNESS OF BREATH Amlodipine Besylate 5 mg 07/24/19 11:45 07/26/19 10:11 Norvasc - PO 5 mg DAILY [facility] Administration Aspirin 81 mg 07/25/19 10:00 07/26/19 10:12 Ecotrin - PO 81 mg DAILY [facility] Administration Atorvastatin Calcium 10 mg 07/25/19 22:00 07/25/19 21:54 Lipitor - PO 10 mg HS [facility] Administration Budesonide/Formoterol Fumarate 1 puff 07/25/19 10:00 07/26/19 10:12 Symbicort 160/4.5mcg - IH 1 puff BID [facility] Administration Cholecalciferol 1,000 unit 07/25/19 10:00 07/26/19 10:11 Vitamin D3 - PO 1,000 unit DAILY [facility] Administration Cyanocobalamin 1,000 mcg 07/25/19 10:00 07/26/19 10:11 Vitamin B12 - PO 1,000 mcg DAILY [facility] Administration Docusate Sodium 100 mg 07/25/19 06:00 07/26/19 13:05 Colace - PO Not Given TID [facility] Doxazosin Mesylate 4 mg 07/25/19 10:00 07/26/19 10:12 Cardura - PO 4 mg DAILY [facility] Administration Furosemide 80 mg 07/26/19 10:00 07/26/19 10:11 Lasix - PO 80 mg DAILY [facility] Administration Gabapentin 300 mg 07/25/19 10:00 07/26/19 10:11 Neurontin - PO 300 mg DAILY [facility] Administration Heparin Sodium (Porcine) 5,000 unit 07/25/19 06:00 07/26/19 13:05 Heparin - SQ 5,000 unit TID [facility] Administration Hydralazine HCl 10 mg 07/25/19 10:00 07/26/19 10:12 Apresoline - PO 10 mg BID [facility] Administration Insulin Aspart 1 vial 07/25/19 07:00 07/26/19 11:19 Novolog Vial Sliding Scale - SQ 4 units ACHS [facility] Administration Protocol Insulin Detemir 30 units 07/25/19 22:00 07/25/19 21:55 Levemir Vial SQ 30 units HS [facility] Administration Ondansetron HCl 4 mg 07/24/19 23:22 Zofran Injection IVPUSH Q6H PRN NAUSEA Oxycodone HCl 10 mg 07/24/19 23:22 Roxicodone - PO Q6H PRN PAIN LEVEL 7 - 10 Pantoprazole Sodium 40 mg 07/25/19 10:00 07/26/19 10:11 Protonix - PO 40 mg DAILY [facility] Administration Polyethylene Glycol 17 gm 07/25/19 10:00 07/26/19 10:11 Miralax (For Daily Use) - PO Not Given DAILY [facility] Senna 1 tab 07/25/19 22:00 07/25/19 21:53 Senna - PO 1 tab HS [facility] Administration Sodium Bicarbonate 1,300 mg 07/25/19 10:00 07/26/19 10:12 Sodium Bicarbonate - PO 1,300 mg BID [facility] Administration ASSESSMENT/PLAN: Problem List - Problems (1) Abscess of buttock, left Code(s): L02.31 - CUTANEOUS ABSCESS OF BUTTOCK (2) Acute renal insufficiency Code(s): N28.9 - DISORDER OF KIDNEY AND URETER, UNSPECIFIED (3) Morbid obesity Code(s): E66.01 - MORBID (SEVERE) OBESITY DUE TO EXCESS CALORIES (4) ARF (acute renal failure) Code(s): N17.9 - ACUTE KIDNEY FAILURE, UNSPECIFIED Qualifiers: Acute renal failure type: unspecified Qualified Code(s): N17.9 - Acute kidney failure, unspecified (5) Acute on chronic kidney failure Code(s): N17.9 - ACUTE KIDNEY FAILURE, UNSPECIFIED; N18.9 - CHRONIC KIDNEY DISEASE, UNSPECIFIED Qualifiers: Acute renal failure type: unspecified Chronic kidney disease stage: stage 4 (severe) Qualified Code(s): N17.9 - Acute kidney failure, unspecified; N18.4 - Chronic kidney disease, stage 4 (severe) (6) COPD (chronic obstructive pulmonary disease) Code(s): J44.9 - CHRONIC OBSTRUCTIVE PULMONARY DISEASE, UNSPECIFIED (7) Diabetes Code(s): E11.9 - TYPE 2 DIABETES MELLITUS WITHOUT COMPLICATIONS (8) Morbid obesity Code(s): E66.01 - MORBID (SEVERE) OBESITY DUE TO EXCESS CALORIES (9) History of CVA (cerebrovascular accident) Code(s): Z86.73 - PRSNL HX OF TIA (TIA), AND CEREB INFRC W/O RESID DEFICITS (10) MARLON (obstructive sleep apnea) Code(s): G47.33 - OBSTRUCTIVE SLEEP APNEA (ADULT) (PEDIATRIC) (11) Prophylactic measure Code(s): Z29.9 - ENCOUNTER FOR PROPHYLACTIC MEASURES, UNSPECIFIED (12) DVT prophylaxis Code(s): Z29.9 - ENCOUNTER FOR PROPHYLACTIC MEASURES, UNSPECIFIED
--- NOTE | 2019-07-26 16:01 | DS ---
Physical Exam: SUBJECTIVE: Patient seen and examined at the bedside. in no acute distress. feels well and wants to go home. since he is not home bound, not eligible for vns. patient to manage his wound at home. sitz baths recommended. primary RN to teach patient how to manage wound by keeping it covered with alleyvn and keep any fecal matter from entering wound. patient to follow up with Dr. Hlil for post op care/appt. he will have cpap delivered to his home. OBJECTIVE: Patient is a 68 year old male who presents to the ED on 07/18/2019 with left lower buttocks abscess. His past medical history includes bladder CA status post urostomy 2 years ago, diabetes, baseline renal insufficiency, hyperglycemia. Patient also has history of stroke, once in 2013 and again on 2014 when ASA was held for procedure. SEE PROBLEM LIST BELOW: Vital Signs Period Temp Pulse Resp BP Sys/Argueta Pulse Ox Last 24 Hr 97.9 F-98.7 F 68-88 17-20 127-150/71-88 98-99 PHYSICAL EXAM GENERAL: The patient is awake, alert, and fully oriented, in no acute distress. HEAD: Normal with no signs of trauma. EYES: PERRL, extraocular movements intact, sclera anicteric, conjunctiva clear. No ptosis. ENT: Ears normal, nares patent, oropharynx clear without exudates, moist mucous membranes. NECK: Trachea midline, full range of motion, supple. LUNGS: Breath sounds diminished bilaterally HEART: Regular rate and rhythm ABDOMEN: Soft, nontender, mildly distended, normoactive bowel sounds - urine stoma pink on right lower quadrant EXTREMITIES: no edema. NEUROLOGICAL: Normal speech, gait not observed. ambulates with a cane PSYCH: Normal mood, normal affect. SKIN: clean wound s/p debridement LABS Laboratory Results - last 24 hr 07/25/19 07/25/19 07/26/19 16:28 21:49 06:00 WBC RBC Hgb Hct MCV MCH MCHC RDW Plt Count MPV Absolute Neuts (auto) Neutrophils % Lymphocytes % Monocytes % Eosinophils % Basophils % Nucleated RBC % Sodium 138 Potassium 3.7 Chloride 111 H Carbon Dioxide 19 L Anion Gap 8 BUN 53.1 H Creatinine 3.3 H Est GFR (CKD-EPI)AfAm 20.77 Est GFR (CKD-EPI)NonAf 17.92 POC Glucometer 219 213 Random Glucose 187 H Calcium 9.1 Magnesium 2.5 H Total Bilirubin 0.3 AST 31 ALT 48 Alkaline Phosphatase 63 Total Protein 6.2 L Albumin 2.8 L 07/26/19 07/26/19 07/26/19 06:39 06:50 11:18 WBC 6.7 RBC 3.79 L Hgb 10.4 L Hct 31.1 L MCV 82.0 MCH 27.3 MCHC 33.3 RDW 15.8 Plt Count 282 MPV 7.8 Absolute Neuts (auto) 5.0 Neutrophils % 74.6 Lymphocytes % 11.6 Monocytes % 8.2 Eosinophils % 5.0 H Basophils % 0.6 Nucleated RBC % 0 Sodium Potassium Chloride Carbon Dioxide Anion Gap BUN Creatinine Est GFR (CKD-EPI)AfAm Est GFR (CKD-EPI)NonAf POC Glucometer 180 168 Random Glucose Calcium Magnesium Total Bilirubin AST ALT Alkaline Phosphatase Total Protein Albumin HOSPITAL COURSE: Date of Admission:07/18/19 Date of Discharge: 07/26/19 Minutes to complete discharge: 45 Discharge Summary Problems reviewed: Yes Reason For Visit: ACUTE RENAL INSUFFICIENCY Current Active Problems Abscess of buttock, left (Acute) Acidosis (Acute) Acute kidney injury (Acute) Acute renal insufficiency (Acute) COPD (chronic obstructive pulmonary disease) (Acute) DVT prophylaxis (Acute) Diabetes (Acute) History of CVA (cerebrovascular accident) (Acute) History of urostomy (Acute) Morbid obesity (Acute) Morbid obesity (Acute) MARLON (obstructive sleep apnea) (Acute) MARLON (obstructive sleep apnea) (Acute) Perianal abscess (Acute) Prophylactic measure (Acute) Condition: Improved - Instructions Diet, Activity, Other Instructions: Mr. Isaacs: You were admitted for an infection in your left buttocks and you have had this wound debrided. You have completed the antibiotics for this wound. Please keep this wound covered with an allevyn dressing and wash it with a sitz bath. A Sitz bath can be purchased over the counter. This will help keep the wound clean. It is important that you keep it covered or it can become infected if stool enters the wound. We will be sending you home with a visiting nurse so the wound can be monitored. Continue all your home medications as outlined in your discharge instructions. Please note that we added Norvasc 5mg once per day to better control your blood pressure. Please follow up with your PCP. Thank you for allowing us to care for you. Referrals: Freddie Forbes MD [Staff Physician] - 2 Weeks Umang Howard MD [Staff Physician] - Disposition: HOME - Home Medications Comprehensive Discharge Medication List: Ambulatory Orders Atorvastatin Ca [Lipitor] 10 mg PO DAILY 06/07/17 Cholecalciferol (Vitamin D3) [Vitamin D3] 1,000 unit PO DAILY 06/07/17 Cyanocobalamin [Vitamin B12 -] 1,000 mcg PO DAILY 06/07/17 Doxazosin Mesylate [Cardura -] 4 mg PO DAILY 06/07/17 Multivitamin [One Daily] 1 each PO DAILY 06/07/17 Insulin Detemir [Levemir Flextouch] 50 unit SQ HS 11/05/17 Aspirin 81 mg PO DAILY 06/18/18 Gabapentin 300 mg PO DAILY 06/18/18 Budesonide/Formeterol Fumarate [SYMBICORT 160/4.5mcg -] 1 inh PO BID 11/03/18 Ipratropium/Albuterol Sulfate [Combivent Respimat 20-100 Mcg] 4 gm IH BID Cyclobenzaprine HCl 10 mg PO TID PRN #9 tablet 04/08/19 Insulin (Novolog) [Novolog -] 50 units SQ AM 04/08/19 Sodium Bicarbonate - 650 mg PO BID 04/08/19 hydrALAZINE HCL [Apresoline -] 10 mg PO BID 30 Days tablet 04/11/19 Amlodipine Besylate [Norvasc -] 5 mg PO DAILY #90 tablet 07/26/19 Budesonide/Formeterol Fumarate [SYMBICORT 160/4.5mcg -] 1 puff IH BID #1 inhaler 07/26/19 Furosemide [Lasix -] 80 mg PO DAILY #100 tablet 07/26/19 Problem List - Problems (1) Abscess of buttock, left Assessment/Plan: left buttock abscess s/p I & D left perianal abscess on 07/23/2018 c/o incisional pain denies wound bleeding patient to manage his wound at home with allevyn dressing, taught by primary RN to keep wound clean and dry. will follow up with surgery as an outpatient. Code(s): L02.31 - CUTANEOUS ABSCESS OF BUTTOCK (2) Acute renal insufficiency Assessment/Plan: seen by renal renal dose meds on bicarb PO Code(s): N28.9 - DISORDER OF KIDNEY AND URETER, UNSPECIFIED (3) Morbid obesity Code(s): E66.01 - MORBID (SEVERE) OBESITY DUE TO EXCESS CALORIES (4) ARF (acute renal failure) Assessment/Plan: renal follow up outpatient lasix 80mg daily to continue as an outpatient per renal Code(s): N17.9 - ACUTE KIDNEY FAILURE, UNSPECIFIED Qualifiers: Acute renal failure type: unspecified Qualified Code(s): N17.9 - Acute kidney failure, unspecified (5) Acute on chronic kidney failure Code(s): N17.9 - ACUTE KIDNEY FAILURE, UNSPECIFIED; N18.9 - CHRONIC KIDNEY DISEASE, UNSPECIFIED Qualifiers: Acute renal failure type: unspecified Chronic kidney disease stage: stage 4 (severe) Qualified Code(s): N17.9 - Acute kidney failure, unspecified; N18.4 - Chronic kidney disease, stage 4 (severe) (6) COPD (chronic obstructive pulmonary disease) Assessment/Plan: not in acute exacerbation, patient told in past that he may or may not have copd tolerating room air per ct imaging, no COPD seen or any other acute pathology cpap to be delivered to his home pending insurance approval. per pulm, can be d/c today pending cpap machine delivery to his home. Code(s): J44.9 - CHRONIC OBSTRUCTIVE PULMONARY DISEASE, UNSPECIFIED (7) Diabetes Assessment/Plan: continue home medications and follow up with primary Code(s): E11.9 - TYPE 2 DIABETES MELLITUS WITHOUT COMPLICATIONS (8) Morbid obesity Code(s): E66.01 - MORBID (SEVERE) OBESITY DUE TO EXCESS CALORIES (9) History of CVA (cerebrovascular accident) Assessment/Plan: cva 2013 and 2015 on asa and lipitor lipid panel pending Code(s): Z86.73 - PRSNL HX OF TIA (TIA), AND CEREB INFRC W/O RESID DEFICITS (10) MARLON (obstructive sleep apnea) Assessment/Plan: on cpap at night Code(s): G47.33 - OBSTRUCTIVE SLEEP APNEA (ADULT) (PEDIATRIC) (11) Prophylactic measure Assessment/Plan: discharge home Code(s): Z29.9 - ENCOUNTER FOR PROPHYLACTIC MEASURES, UNSPECIFIED (12) DVT prophylaxis Code(s): Z29.9 - ENCOUNTER FOR PROPHYLACTIC MEASURES, UNSPECIFIED This patient is new to me today: No Emergency Visit: Yes ED Registration Date: 07/18/19 Care time: The patient presented to the Emergency Department on the above date and was hospitalized for further evaluation of their emergent condition. Critical Care patient: No - Discharge Referral Referred to [facility] Med P.C.: No
--- NOTE | 2019-07-26 16:34 | PN ---
Progress Note (short form) - Note Progress Note: Renal follow up for MEKA on CKD seen and examined at the bedside no acute complaints feels much better making urine no shortness of breath Vital Signs Temperature 98.3 F 07/26/19 14:10 Pulse Rate 77 07/26/19 14:10 Respiratory Rate 20 07/26/19 14:10 Blood Pressure 127/71 07/26/19 14:10 O2 Sat by Pulse Oximetry (%) 98 07/26/19 09:00 Intake & Output 07/23/19 07/24/19 07/25/19 07/26/19 23:59 23:59 23:59 23:59 Intake Total 1220 8841 604 6912 Output Total 3200 3650 1100 2400 Balance -1980 -2650 -450 -1320 NAD RRR CTA no rales or wheeze soft, obese, NT/ND + trace to mild edema in LE CBC, BMP 07/26/19 06:50 07/26/19 06:00 Current Medications Albuterol/Ipratropium (Duoneb -) 1 amp NEB Q6H PRN PRN Reason: SHORTNESS OF BREATH Amlodipine Besylate (Norvasc -) 5 mg PO DAILY [facility] Last Admin: 07/26/19 10:11 Dose: 5 mg Aspirin (Ecotrin -) 81 mg PO DAILY [facility] Last Admin: 07/26/19 10:12 Dose: 81 mg Atorvastatin Calcium (Lipitor -) 10 mg PO HS [facility] Last Admin: 07/25/19 21:54 Dose: 10 mg Budesonide/Formoterol Fumarate (Symbicort 160/4.5mcg -) 1 puff IH BID [facility] Last Admin: 07/26/19 10:12 Dose: 1 puff Cholecalciferol (Vitamin D3 -) 1,000 unit PO DAILY [facility] Last Admin: 07/26/19 10:11 Dose: 1,000 unit Cyanocobalamin (Vitamin B12 -) 1,000 mcg PO DAILY [facility] Last Admin: 07/26/19 10:11 Dose: 1,000 mcg Docusate Sodium (Colace -) 100 mg PO TID [facility] Last Admin: 07/26/19 13:05 Dose: Not Given Doxazosin Mesylate (Cardura -) 4 mg PO DAILY [facility] Last Admin: 07/26/19 10:12 Dose: 4 mg Furosemide (Lasix -) 80 mg PO DAILY [facility] Last Admin: 07/26/19 10:11 Dose: 80 mg Gabapentin (Neurontin -) 300 mg PO DAILY [facility] Last Admin: 07/26/19 10:11 Dose: 300 mg Heparin Sodium (Porcine) (Heparin -) 5,000 unit SQ TID [facility] Last Admin: 07/26/19 13:05 Dose: 5,000 unit Hydralazine HCl (Apresoline -) 10 mg PO BID [facility] Last Admin: 07/26/19 10:12 Dose: 10 mg Insulin Aspart (Novolog Vial Sliding Scale -) 1 vial SQ [facility]; Protocol Last Admin: 07/26/19 11:19 Dose: 4 units Insulin Detemir (Levemir Vial) 30 units SQ HS [facility] Last Admin: 07/25/19 21:55 Dose: 30 units Ondansetron HCl (Zofran Injection) 4 mg IVPUSH Q6H PRN PRN Reason: NAUSEA Oxycodone HCl (Roxicodone -) 10 mg PO Q6H PRN PRN Reason: PAIN LEVEL 7 - 10 Pantoprazole Sodium (Protonix -) 40 mg PO DAILY [facility] Last Admin: 07/26/19 10:11 Dose: 40 mg Polyethylene Glycol (Miralax (For Daily Use) -) 17 gm PO DAILY [facility] Last Admin: 07/26/19 10:11 Dose: Not Given Senna (Senna -) 1 tab PO [facility] Last Admin: 07/25/19 21:53 Dose: 1 tab Sodium Bicarbonate (Sodium Bicarbonate -) 1,300 mg PO BID [facility] Last Admin: 07/26/19 10:12 Dose: 1,300 mg 68 year old gentleman with history of CKD stage 4, urethral diverison with ileual conduit, COPD, hypertension, hyperlipideima who presented from home with perirectal abcess with MEKA on CKD. 1. Acute on chronic renal insufficiency 2. CKD stage 4 3. Acute on Chronic metabolic acidosis 4. Anemia 5. Perirectal abcess Renal function stable. Serum Bicarbonate improved. Continue Lasix 80mg daily once discharged. stable for discharge from renal perspective to follow up in our office in 2-3 weeks. Thank you Freddie Forbes DO
== END 2019-07-26 16:41 | disposition home or self-care (01) | DRG 348 ==
LOC: JER 08:04 → JERBED 13:38 → J2W 23:21 → J7W 07-24 23:17
PROVIDERS: ATTEND Nurse Practitioner Family
PROC: 0D9Q0ZZ Drainage of Anus, Open Approach (ICD-10-PCS; principal; 2019-07-22 12:00)
DX: K61.0 Anal abscess (principal); L02.31 Cutaneous abscess of buttock; E87.2 Acidosis; Z68.41 Body mass index [BMI] 40.0-44.9, adult; N18.5 Chronic kidney disease, stage 5; N17.9 Acute kidney failure, unspecified; E66.01 Morbid (severe) obesity due to excess calories; D64.9 Anemia, unspecified; E11.65 Type 2 diabetes mellitus with hyperglycemia; G47.33 Obstructive sleep apnea (adult) (pediatric); J44.9 Chronic obstructive pulmonary disease, unspecified; E78.5 Hyperlipidemia, unspecified; K59.00 Constipation, unspecified; D72.829 Elevated white blood cell count, unspecified
CPT/HCPCS: 36415; 71250-TC; 72192-TC; 76882-TC-RT-FY; 80048; 80053; 80061; 81003; 82010; 82436; 82565; 82803; 82962; 83036; 83605; 83721; 83735; 84100; 84133; 84300; 84540; 85025; 86850; 86900; 86901; 87040; 87070; 87077; 87086; 87186; 87205; 87389; 93005; 93010; 94010; 94660; 94760; 99284-25; J0131; J1644; J7030

== ENCOUNTER 2020-03-19 17:48 | Inpatient (IN) | payer OTHER ==
--- NOTE | 2020-03-19 18:04 | PDOC ---
Rapid Medical Evaluation Time Seen by Provider: 03/19/20 18:00 Medical Evaluation: Allergies Allergy/AdvReac Type Severity Reaction Status Date / Time shrimp Allergy Intermediate Vomiting Verified 03/19/20 18:00 03/19/20 18:01 CC: SOB x 2 weeks, not seen by his pcp, no other complaints, nonsmoker Exam: vss, Plan: labs, cxr, ekg Discharge Disposition - Diagnosis Shortness of breath - Referrals - Patient Instructions - Post Discharge Activity
--- NOTE | 2020-03-19 19:00 | PDOC ---
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 For the last 2 weeks patient has been feeling worsening SOB and angina specific ally with movement, reports a pressure like left-sided chest pain when trying to walk with progressively worsening HOLLY. Also having pain to both of his lower extremities that he has never had before, worse when walking and painful to touch. Denies any fever, chills, nausea, vomiting, abd pain, diarrhea. PO intake good, has not eaten since yesterday. Has a urostomy bag s/p bladder resection, output good. Has appt to see Dr. Howard tomorrow but unable to wait due to worsening symptoms today. If not standing or walking completely asymptomatic. Last cards with Leonela a few years ago, EF 55-60%. Worsening renal function, sees Mariangel Cain. Renal: Mariangel Cain Cards: Leonela PMD: Lee Past History - Medical History Allergies/Adverse Reactions: Allergies Allergy/AdvReac Type Severity Reaction Status Date / Time shrimp Allergy Intermediate Vomiting Verified 03/19/20 18:00 Home Medications: Ambulatory Orders Atorvastatin Ca [Lipitor] 10 mg PO DAILY 06/07/17 Cholecalciferol (Vitamin D3) [Vitamin D3] 1,000 unit PO DAILY 06/07/17 Cyanocobalamin [Vitamin B12 -] 1,000 mcg PO DAILY 06/07/17 Doxazosin Mesylate [Cardura -] 4 mg PO DAILY 06/07/17 Multivitamin [One Daily] 1 each PO DAILY 06/07/17 Insulin Detemir [Levemir Flextouch] 50 unit SQ HS 11/05/17 Aspirin 81 mg PO DAILY 06/18/18 Gabapentin 300 mg PO DAILY 06/18/18 Budesonide/Formeterol Fumarate [SYMBICORT 160/4.5mcg -] 1 inh PO BID 11/03/18 Ipratropium/Albuterol Sulfate [Combivent Respimat 20-100 Mcg] 4 gm IH BID 11/03/18 Cyclobenzaprine HCl 10 mg PO TID PRN #9 tablet 04/08/19 Insulin (Novolog) [Novolog -] 50 units SQ AM 04/08/19 hydrALAZINE HCL [Apresoline -] 10 mg PO BID 30 Days tablet 04/11/19 Amlodipine Besylate [Norvasc -] 5 mg PO DAILY #90 tablet 07/26/19 Budesonide/Formeterol Fumarate [SYMBICORT 160/4.5mcg -] 1 puff IH BID #1 inhaler 07/26/19 Furosemide [Lasix -] 80 mg PO DAILY #60 tablet 10/26/19 Sodium Bicarbonate - 1,300 mg PO BID #120 tablet 10/26/19 Anemia: No Asthma: No Cancer: Yes (BLADDER CA W/REMOVAL AND UROSTOMY) Cardiac Disorders: No (DR. DASH AT [facility]) CVA: Yes (2013) COPD: No CHF: No Dementia: No Diabetes: Yes Dialysis: No GI Disorders: No Disorders: Yes HTN: Yes Hypercholesterolemia: Yes Liver Disease: No Seizures: No Thyroid Disease: No - Surgical History Abdominal Surgery: Yes (BLADDER REMOVED 05/2014 -UROSTOMY) Appendectomy: No Cardiac Surgery: No Cholecystectomy: No Lung Surgery: No Neurologic Surgery: No Orthopedic Surgery: Yes (left knee sx) - Immunization History Immunization Up to Date: Yes (FLU AND PNA UP TO DATE) - Psycho-Social/Smoking History Smoking Status: No Smoking History: Never smoked Have you smoked in the past 12 months: No If you are a former smoker, when did you quit?: "years ago" - Substance Abuse Hx (Audit-C & DAST Scrn) How often the patient has a drink containing alcohol: Never Score: In Men: 4 or > Positive; In Women: 3 or > Positive: 0 Screen Result (Pos requires Nsg. Audit-10AR): Negative In the last yr the pt used illegal drug/Rx for NonMed reason: No Score: Yes response is considered Positive: 0 Screen Result (Positive result requires Nsg. DAST-10): Negative Review of Systems - Review of Systems Able to Perform ROS?: Yes Constitutional: No: Symptoms Reported HEENTM: No: Symptoms Reported Respiratory: Yes: Shortness of Breath, SOB with Exertion. No: Cough, Wheezing, Productive cough Cardiac (ROS): Yes: Chest Pain. No: Edema, Irregular Heart Rate, Lightheadedness, Palpitations, Syncope ABD/GI: No: Constipated, Diarrhea, Nausea, Poor Appetite, Poor Fluid Intake, Vomiting, Abdominal cramping : No: Burning, Discharge, Flank Pain, Hematuria Musculoskeletal: Yes: Muscle Pain Integumentary: No: Symptoms Reported Neurological: No: Symptoms reported Endocrine: No: Symptoms Reported Hematologic/Lymphatic: No: Symptoms Reported All Other Systems: Reviewed and Negative *Physical Exam - Vital Signs Last Vital Signs Temp Pulse Resp BP Pulse Ox 97.7 F 98 H 22 H 103/65 100 03/19/20 18:01 03/19/20 18:01 03/19/20 18:01 03/19/20 18:03/19/20 18:01 - Physical Exam General Appearance: Yes: Nourished, Appropriately Dressed, Obese, Other (resting comfortaqbly in bed, breathing well on RA, in NAD). No: Apparent Distress HEENT: positive: EOMI, JENNIE, Normal Voice, Symmetrical, Pharynx Normal, Hearing Grossly Normal. negative: Scleral Icterus (R), Scleral Icterus (L), Pharyngeal Erythema, Tonsillar Exudate, Tonsillar Erythema Neck: positive: Trachea midline, Normal Thyroid, Supple. negative: Tender, Rigid, Lymphadenopathy (L), Tender lateral, Tender midline Respiratory/Chest: positive: Lungs Clear, Normal Breath Sounds. negative: Chest Tender, Respiratory Distress, Accessory Muscle Use, Labored Respiration, Rapid RR, Crackles, Rales, Rhonchi, Stridor, Wheezing Cardiovascular: positive: Regular Rhythm, Regular Rate. negative: Murmur Gastrointestinal/Abdominal: positive: Normal Bowel Sounds, Soft, Protuberent, Other (has urostomy bag in place with clear yellow urine, beefy red stoma, non- tender). negative: Tender, Organomegaly, Pulsatile Mass, Guarding, Rebound, Tenderness Musculoskeletal: positive: Normal Inspection. negative: CVA Tenderness, CVA Tenderness (R), CVA Tenderness (L), Vertebral Tenderness Extremity: positive: Normal Capillary Refill, Normal Inspection, Normal Range of Motion, Tender (tender to palpation to BLE, no bruising or evidence of injury, no bony deformity, pulses intact), Calf Tenderness. negative: Cyanosis, Pedal Edema, Swelling Integumentary: positive: Normal Color, Dry, Warm Neurologic: positive: Fully Oriented, Alert, Normal Mood/Affect, Normal Response, Motor Strength 55 ED Treatment Course - LABORATORY CBC & Chemistry Diagram: 03/19/20 19:01 03/19/20 19:00 Medical Decision Making - Medical Decision Making 03/19/20 18:58 Patient has known history of CKD, CHF, DM, presenting with symptoms consistent with stable angina with SOB and pain to BLE. Possible DM-related changes to BLE, but concerned for fluid overload vs. DVT given PMH. No crackles or wheezing on exam, no gross evidence of overload to BLE. Satting well on RA. Evaluating broadly for ACS/COPD/CHF with CBC/CMP/CP/ECG/CXR/Coags, as well as BLE Duplex for eval DVT. Will likely need covid-19 testing and admission to tele for further evaluation. 03/19/20 20:15 Labs notable for: - CBC WNL - VBG pH 6.989 - Na 132 - K 5.4, consistent with CKD - BUN 156.2, tripled from prior - Cr 5.9, up from ~3 last month - Mag 2.9 - BNP 286.6 03/19/20 21:08 US read no DVT. Patient has urostomy bag, will try to obtain sample for UA testing. 03/19/20 21:54 Patient will ultimately require admission for worsening renal function and angina. Contacting Dr. Forbes alteration tailor for Dr. Mariangel Cain for worsening renal function. 03/19/20 22:14 Dr. Forbes knows patient well, has known history of metabolic acidosis due to chronic GI losses from the urostomy. MEKA and acidosis responds well to IVF, recommends D5 with 150 bicarb running at 100-125cc/hr, will help relieve metabolic changes overnight. Contacted pharmacy, recommends ordering 1000cc D5 with 150mEq bicarb IVPB. 03/19/20 22:36 Discussed case with admitting team, accepts for admission under Dr. Damon to telemetry. Discharge - Discharge Information Problems reviewed: Yes Clinical Impression/Diagnosis: Shortness of breath, Swelling of both lower extremities, Angina pectoris, un specified Acute on chronic kidney failure Qualifiers: Acute renal failure type: unspecified Chronic kidney disease stage: unspecified stage Qualified Code(s): N17.9 - Acute kidney failure, unspecified Condition: Stable - Admission Yes - Follow up/Referral Referrals: Umang Howard MD [Primary Care Provider] - - Patient Discharge Instructions - Post Discharge Activity
--- NOTE | 2020-03-19 19:25 | PDOC ---
Documentation entered by Loly Louie SCRIBE, acting as scribe for Itzel June MD. Itzel June MD: This documentation has been prepared by the Jacy jimenez Brenda, SCRIBE, under my direction and personally reviewed by me in its entirety. I confirm that the documentation accurately reflects all work, treatment, procedures, and medical decision making performed by me. Attending Attestation - Resident Resident Name: TerratheresaAlvaro - ED Attending Attestation I have performed the following: I have examined & evaluated the patient, The case was reviewed & discussed with the resident, I agree w/resident's findings & plan, Exceptions are as noted - HPI HPI: 03/19/20 19:19 69 yo male who has had 2 weeks of shortness of breath and now noted his calves were painful 03/19/20 23:29 - Physicial Exam PE: 03/19/20 23:28 head ncat neck supple lungs no rles cvs [id number] abdomen protuberant, ileal conduit with urine extremities no erythema, no pitting edema skin warm and dry neuro axox3 ,ambulatory - Medical Decision Making 03/19/20 19:21 this morbidly obese has PMH CHF,COPD ,HTN,CKD,IDDM,bladder CA s/p bladder resection and ileal conduit 03/19/20 19:23 Dr Burks was his cards echo in 2018 showed ER 60-65% and moderate LVH concern for chf,will do duplex to r/o dvt 03/19/20 22:15 -Discussed case with Dr Forbes and this pt has had a chronic metabloic acidosis since his ileal conduit s/p bladder resection 03/20/20 01:22 pt admitted for CKI,metabolic acidosis Discharge - Discharge Information Problems reviewed: Yes Clinical Impression/Diagnosis: Shortness of breath, Swelling of both lower extremities, Angina pectoris, un specified Acute on chronic kidney failure Qualifiers: Acute renal failure type: unspecified Chronic kidney disease stage: unspecified stage Qualified Code(s): N17.9 - Acute kidney failure, unspecified Condition: Stable - Admission Yes - Follow up/Referral - Patient Discharge Instructions - Post Discharge Activity
[2020-03-19 20:00] LABS: BASO % 0.2 % (0-2.0); HEMATOCRIT 39.3 % (35.4-49); HEMOGLOBIN 13.1 GM/dL (11.7-16.9); MCH 27.6 pg (25.7-33.7); MCHC 33.3 g/dl (32.0-35.9); MEAN CELL VOLUME 83.1 fl (80-96); MEAN PLT VOLUME 8.2 fl (7.5-11.1); MONO % 7.7 % (3.8-10.2); NEUT % 85.1 % (42.8-82.8); PLATELET COUNT 238 K/MM3 (134-434); RBC 4.73 M/mm3 (4.00-5.60); RDW 14.6 % (11.9-15.9); WHITE BLOOD COUNT 10.2 K/mm3 (4.0-10.0)
[2020-03-19 20:04] LABS: INR 0.97 (0.83-1.09); PROTHROMBIN TIME (PATIENT) 11.4 SEC (9.7-13.0)
[2020-03-19 20:06] LABS: ACTIVATED PTT 29.4 SECONDS (25.2-36.5); VENOUS BASE EXCESS -23.4 mmol/L (-2-2); VENOUS O2 SATURATION 50.8 % (70-80); VENOUS PCO2 30.7 mmHg (38-52)
[2020-03-19 20:07] LABS: VENOUS PH 6.989 (7.310-7.410)
[2020-03-19 20:11] LABS: ALBUMIN 3.7 g/dl (3.4-5.0); ALK PHOS 77 U/L (45-117); ANION GAP 13 MMOL/L (8-16); BILIRUBIN,TOTAL 0.3 mg/dL (0.2-1); CALCIUM 8.8 mg/dL (8.5-10.1); CHLORIDE 111 mmol/L (98-107); CO2 8 mmol/L (21-32); CREATININE 5.9 mg/dL (0.55-1.3); GLUCOSE,RANDOM 289 mg/dL (74-106); MAGNESIUM 2.9 mg/dL (1.8-2.4); POTASSIUM 5.4 mmol/L (3.5-5.1); SGOT/AST 9 U/L (15-37); SGPT/ALT 20 U/L (13-61); SODIUM 132 mmol/L (136-145)
[2020-03-19 20:12] LABS: BLOOD UREA NITROGEN 156.2 mg/dL (7-18)
--- NOTE | 2020-03-19 22:02 | PN ---
Teaching Attending Note Name of Resident: Marie Bruce ATTENDING PHYSICIAN STATEMENT I saw and evaluated the patient. I reviewed the resident's note and discussed the case with the resident. I agree with the resident's findings and plan as documented. SUBJECTIVE: Patient is a 69 year old man with a PMH of Obesity, HTN, HLD, NIDDM, CVA (2013 & 2014, with residual ataxia), COPD (on home O2), CKD IV and Bladder cancer (s/p urethral diversion/ileal conduit and urostomy - 05/2014) presenting with SOB and BLE edema for 2 weeks. Reports worsening SOB and angina specifically with movement. Reports a pressure-like left-sided chest pain when trying to walk with progressively worsening HOLLY. Also having pain to both of his lower extremities that he has never had before, worse when walking and painful to touch. Says appetite is good. Denies any fever, chills, nausea, vomiting, abdominal pain or diarrhea. Urostomy bag output has not changed. Patient denies headache, palpitations, dizziness, dysuria, frequency, urgency, melena, hematochezia or hematuria. Denies alcohol, tobacco or illicit drug use. No sick contacts or recent travels. Family history of DM in both parents. OBJECTIVE: Alert Vital Signs Period Temp Pulse Resp BP Sys/Argueta Pulse Ox Last 24 Hr 97.7 F 98 22 103/65 100 HEENT: No Jaundice, eye redness or discharge, PERRLA, EOMI. Normocephalic, atraumatic. External ears are normal and hearing is grossly intact. No nasal discharge. Neck: Supple, nontender. No palpable adenopathy or thyromegaly. No JVD Chest: Good effort. Clear to auscultation and percussion. Heart: Regular. No S3, rub or murmur Abdomen: Protuberant abdomen; urostomy intact, soft, nontender and no HSM. No rebound or guarding. Normal bowel sounds. Ext: Peripheral pulses intact. No leg edema. Skin: Warm and dry. No petechiae, rash or ecchymosis. Neuro: Alert. Oriented x3. CN 2-12 grossly intact. Sensation grossly intact in all four extremities and DTR are symmetric. Psych: Appropriate mood and affect. Good insight. Home Medications Medication Instructions Recorded Atorvastatin Ca [Lipitor] 10 mg PO DAILY 06/07/17 Cholecalciferol (Vitamin D3) 1,000 unit PO DAILY 06/07/17 [Vitamin D3] Cyanocobalamin [Vitamin B12 -] 1,000 mcg PO DAILY 06/07/17 Doxazosin Mesylate [Cardura -] 4 mg PO DAILY 06/07/17 Multivitamin [One Daily] 1 each PO DAILY 06/07/17 Insulin Detemir [Levemir Flextouch] 50 unit SQ HS 11/05/17 Aspirin 81 mg PO DAILY 06/18/18 Gabapentin 300 mg PO DAILY 06/18/18 Budesonide/Formeterol Fumarate 1 inh PO BID 11/03/18 [SYMBICORT 160/4.5mcg -] Ipratropium/Albuterol Sulfate 4 gm IH BID 11/03/18 [Combivent Respimat 20-100 Mcg] Cyclobenzaprine HCl 10 mg PO TID PRN #9 tablet 04/08/19 Insulin (Novolog) [Novolog -] 50 units SQ AM 04/08/19 hydrALAZINE HCL [Apresoline -] 10 mg PO BID 30 Days tablet 04/11/19 Amlodipine Besylate [Norvasc -] 5 mg PO DAILY #90 tablet 07/26/19 Budesonide/Formeterol Fumarate 1 puff IH BID #1 inhaler 07/26/19 [SYMBICORT 160/4.5mcg -] Furosemide [Lasix -] 80 mg PO DAILY #60 tablet 10/26/19 Sodium Bicarbonate - 1,300 mg PO BID #120 tablet 10/26/19 Abnormal Lab Results 03/19/20 03/19/20 03/19/20 19:00 19:00 19:00 WBC Absolute Neuts (auto) Neutrophils % Lymphocytes % VBG pH 6.989 L* POC VBG pCO2 30.7 L VBG HCO3 7.2 L VBG O2 Sat (Meredith) 50.8 L VBG Base Excess -23.4 L Sodium 132 L Potassium 5.4 H Chloride 111 H Carbon Dioxide 8 L BUN 156.2 H* Creatinine 5.9 H Random Glucose 289 H Magnesium 2.9 H AST 9 L B-Natriuretic Peptide 286.6 H 03/19/20 19:01 WBC 10.2 H Absolute Neuts (auto) 8.7 H Neutrophils % 85.1 H Lymphocytes % 6.0 L D VBG pH POC VBG pCO2 VBG HCO3 VBG O2 Sat (Meredith) VBG Base Excess Sodium Potassium Chloride Carbon Dioxide BUN Creatinine Random Glucose Magnesium AST B-Natriuretic Peptide Current Medications Generic Name Dose Route Start Last Admin Trade Name Osvaldo PRN Reason Stop Dose Admin Dextrose 1,000 mls @ 100 mls/hr 03/19/20 22:30 D5w - IV .Q10H SHANEL ASSESSMENT AND PLAN: 1. MEKA on CKD/Volume overload/?CHF exacerbation/Pneumonia - No obvious cause of MEKA. May represent worsening CKD with fluid retention exacerbating LV function. ECHO from 2018 showed LVEF of 60-65%. Nephrology consulted for hemodialysis in view of severe metabolic acidosis, hyperkalemia and volume overload. No EKG evidence of toxic hyperkalemia. Pending hemodialysis, will treat hyperkalemia with D50W/insulin, Lokelma and calcium gluconate. Will get kidney sonogram, PTH, phosphate and monitor urine output. Avoid nephrotoxic agents such as NSAIDS, aminoglycosides, contrast dyes and certain Alternative medicine products. CXR shows cardiomegaly with possible RLL infiltrate, increased interstitial markings/pulmonary vascular congestion. Vacsular study didnot show leg DVT. EKG shows NSR at 95/minute, 1o AV block, LAD, LAE, LVH and QTc [address]-T wave changes. Not significantly changed compared to prior EKG. No old EKG available for comparison. Initial troponin is negative. Will avoid drugs that may prolong QTc. Viral testing for COVID-19 ordered and patient placed on airborne, droplet and contact isolation. Started on supplemental oxygen via nasal cannula. Will admit to telemetry, trend troponin, repeat EKG, get ECHO, urinalysis, restrict dietary salt intake, monitor renal function, get daily weight and consult Cardiology. Treat Pneumonia with IV Ceftriaxone and Azithromycin. Will continue comprehensive care for all of patients comorbid conditions including Symbicort and Duoneb for COPD. 2. Morbid obesity Counseled on the risks associated with obesity. Will provide patient all the necessary assistance, counseling and positive reinforcement to facilitate weight loss. Consult water quality assistant. 3. Hypertension BP is low. Will restart suitable outpatient antihypertensive drugs when clinically appropriate. Subsequently, will revise regimen to ensure [id number] excellent BP control. Patient counseled on the injurious effects of uncontrolled hypertension. Nonpharmacologic measures to control hypertension like weight loss, salt restriction and exercise stressed. Importance of adherence to treatment regimen and attainment of normotension emphasized. 4. DM For now, we will hold the home diabetes drugs and implement sliding scale insulin regimen. Provide comprehensive diabetes care with patient teaching and counseling about the importance of adherence to prescribed diabetes regimen, euglycemia, eye care and foot care. 5. DVT prophylaxis - Heparin 5000u sq tid. 6. Advance directives - Full code
[2020-03-19] MEDS ORDERED: SODIUM BICARBONATE 8.4% 50 MEQ/50 ML VIAL IVPB ONE (22:21)
[2020-03-19] MEDS ORDERED: DEXTROSE 5%-WATER - 1,000 ML IV SCH (22:30)
--- NOTE | 2020-03-20 00:51 | HP ---
CHIEF COMPLAINT: I can't walk to the bathroom anymore and my legs really hurt PCP: Dr. Lee Gipson - his shoe laster Dr. Mariangel Forman - his prosthetic assistant (seen by Dr. Forbes at previous admissions) HISTORY OF PRESENT ILLNESS: 69yo M with PMHx of HTN, HLD, DM, CVA x2 with residual ataxia, MARLON, COPD on home O2, CKD, bladder carcinoma s/p cystectomy with urostomy who presents with SOB, HOLLY, and bilateral lower leg pain. Patient explained that he recently gained ~77lbs and has been feeling progressively worse when trying to ambulate. He quickly becomes short of breath and he then feels dizzy and like the room is spinning. His leg pain is "pretty bad" and the patient experiences the pain every time he tries to walk. He also has intermittent "stinging" CP without radiation, which is located in his central chest - this pain does not occur every time he tries to walk, only sometimes. He also noticed a dry cough. All the symptoms go away when the patient lies down and rests - he is able to lie down flat without becoming short of breath. Patient said his symptoms started weeks ago and have gotten progressively worse. He feels he should have come in a long time ago, his brother brought him in today. Denied other symptoms such as headaches, fevers, NVD, constipation. ER course was notable for: (1) Na 132, K 5.4, BUN 156.2, Cr 5.9, glucose 289, Mg 2.9, BNP 286.6 (2) CK and troponin unremarkable (3) CXR: right perihilar congestion vs infiltration, (cardiomegaly) (4) bilateral leg duplex: negative for DVTs (5) EKG: sinus rhythm with 1st degree AV block, possible LA enlargement, L axis deviation, QTc 457 Recent Travel: denied PAST MEDICAL HISTORY: as per HPI PAST SURGICAL HISTORY: knee surgery cystectomy with urethral diversion/ileal conduit and urostomy Family History: both father and mother had diabetes no other contributory FamHx - no history of cancers, HTN, or other chronic diseases Social History: Smoking: remote brief hx - 1p/month for ~5 years Alcohol: denied Drugs: denied 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 Home: lives alone, brother lives close by Allergies shrimp Allergy (Intermediate, Verified 08/31/20 18:00) Vomiting HOME MEDICATIONS: Home Medications Medication Instructions Recorded Atorvastatin Ca [Lipitor] 10 mg PO DAILY 06/07/17 Cholecalciferol (Vitamin D3) 1,000 unit PO DAILY 06/07/17 [Vitamin D3] Cyanocobalamin [Vitamin B12 -] 1,000 mcg PO DAILY 06/07/17 Doxazosin Mesylate [Cardura -] 4 mg PO DAILY 06/07/17 Multivitamin [One Daily] 1 each PO DAILY 06/07/17 Insulin Detemir [Levemir Flextouch] 50 unit SQ HS 11/05/17 Aspirin 81 mg PO DAILY 06/18/18 Gabapentin 300 mg PO DAILY 06/18/18 Budesonide/Formeterol Fumarate 1 inh PO BID 11/03/18 [SYMBICORT 160/4.5mcg -] Ipratropium/Albuterol Sulfate 4 gm IH BID 11/03/18 [Combivent Respimat 20-100 Mcg] Cyclobenzaprine HCl 10 mg PO TID PRN #9 tablet 04/08/19 Insulin (Novolog) [Novolog -] 50 units SQ AM 04/08/19 hydrALAZINE HCL [Apresoline -] 10 mg PO BID 30 Days tablet 04/11/19 Amlodipine Besylate [Norvasc -] 5 mg PO DAILY #90 tablet 07/26/19 Budesonide/Formeterol Fumarate 1 puff IH BID #1 inhaler 07/26/19 [SYMBICORT 160/4.5mcg -] Furosemide [Lasix -] 80 mg PO DAILY #60 tablet 10/26/19 Sodium Bicarbonate - 1,300 mg PO BID #120 tablet 10/26/19 REVIEW OF SYSTEMS as per HPI PHYSICAL EXAMINATION Vital Signs - 24 hr 03/19/20 18:01 Temperature 97.7 F Pulse Rate 98 H Respiratory 22 H Rate Blood Pressure 103/65 O2 Sat by Pulse 100 Oximetry (%) GENERAL: Awake, alert, and fully oriented, in no acute distress. HEAD: Normal with no signs of trauma. EYES: Pupils equal, round and reactive to light, extraocular movements intact, sclera anicteric, conjunctiva clear. No lid lag. EARS, NOSE, THROAT: Ears normal, nares patent, oropharynx clear without exudates. Moist mucous membranes. NECK: Normal range of motion, supple without lymphadenopathy, JVD, or masses. LUNGS: Breath sounds equal, clear to auscultation bilaterally. No wheezes, and no crackles. No accessory muscle use. HEART: Regular rate and rhythm, normal S1 and S2 without murmur, rub or gallop. ABDOMEN: Soft, nontender, not distended, normoactive bowel sounds, no guarding, no rebound, no masses. No hepatomegaly or splenomegaly. MUSCULOSKELETAL: Normal range of motion at all joints. No bony deformities or tenderness. No CVA tenderness. UPPER EXTREMITIES: 2+ pulses, warm, well-perfused. No cyanosis. No clubbing. No peripheral edema. LOWER EXTREMITIES: 2+ pulses, warm, well-perfused. No calf tenderness. No peripheral edema. NEUROLOGICAL: Cranial nerves II-XII intact. Normal speech. Normal gait. PSYCHIATRIC: Cooperative. Good eye contact. Appropriate mood and affect. SKIN: Warm, dry, normal turgor, no rashes or lesions noted, normal capillary refill. Laboratory Results - last 24 hr 03/19/20 03/19/20 03/19/20 19: 19:00 19:00 WBC RBC Hgb Hct MCV MCH MCHC RDW Plt Count MPV Absolute Neuts (auto) Neutrophils % Lymphocytes % Monocytes % Eosinophils % Basophils % Nucleated RBC % PT with INR 11.40 INR 0.97 PTT (Actin FS) 29.4 VBG pH POC VBG pCO2 POC VBG pO2 VBG HCO3 VBG O2 Sat (Meredith) VBG Base Excess Sodium 132 L Potassium 5.4 H Chloride 111 H Carbon Dioxide 8 L Anion Gap 13 BUN 156.2 H* Creatinine 5.9 H Est GFR (CKD-EPI)AfAm 10.22 Est GFR (CKD-EPI)NonAf 8.82 Random Glucose 289 H Calcium 8.8 Magnesium 2.9 H Total Bilirubin 0.3 AST 9 L ALT 20 Alkaline Phosphatase 77 Creatine Kinase 109 Troponin I < 0.02 B-Natriuretic Peptide 286.6 H Total Protein 8.0 Albumin 3.7 03/19/20 03/19/20 19:00 19:01 WBC 10.2 H RBC 4.73 Hgb 13.1 Hct 39.3 MCV 83.1 MCH 27.6 MCHC 33.3 RDW 14.6 Plt Count 238 MPV 8.2 Absolute Neuts (auto) 8.7 H Neutrophils % 85.1 H Lymphocytes % 6.0 L D Monocytes % 7.7 Eosinophils % 1.0 D Basophils % 0.2 Nucleated RBC % 0 PT with INR INR PTT (Actin FS) VBG pH 6.989 L* POC VBG pCO2 30.7 L POC VBG pO2 40.0 VBG HCO3 7.2 L VBG O2 Sat (Meredith) 50.8 L VBG Base Excess -23.4 L Sodium Potassium Chloride Carbon Dioxide Anion Gap BUN Creatinine Est GFR (CKD-EPI)AfAm Est GFR (CKD-EPI)NonAf Random Glucose Calcium Magnesium Total Bilirubin AST ALT Alkaline Phosphatase Creatine Kinase Troponin I B-Natriuretic Peptide Total Protein Albumin ASSESSMENT/PLAN: 69yo M with PMHx of HTN, HLD, DM, CVA x2 with residual ataxia, MARLON, COPD on home O2, CKD, bladder carcinoma s/p cystectomy with urostomy who presents with SOB, HOLLY, and bilateral lower leg pain. ED workup was remarkable for Na 132, K 5.4, BUN 156.2, Cr 5.9, glucose 289, Mg 2.9, BNP 286.6, CXR showing right perihilar congestion vs infiltration, bilateral leg duplex which was negative for DVTs, and EKG with sinus rhythm with 1st degree AV block, possible LA enlargement, L axis deviation, QTc 457. Patient admitted for further management of MEKA on CKD, possible PNA, electrolyte dysregulation, and bilateral leg pain. COVID pending. MEKA on CKD ?in setting of fluid overload vs ?PNA electrolyte dysregulation chronic metabolic acidosis nephro consult placed - per Dr. Forbes: 1L D5 with 150mEq sodium bicarbonate IVBP - re-evaluate in am - ?hemodialysis in am - kidney US - PTH, phos - I/O - avoid nephrotoxic agents - UA CXR showing perihilar congestion vs infiltration - possible RLL PNA - started ceftriaxone and azithromycin hyperkalemia - may treat with calcium gluconate 1g, insulin 10 units , D50, and Lokelma - patient may receive hemodialysis in am - Calcium products given in combination with Ceftriaxone may form insoluble precipitate leg pain bilateral LE US - no evidence of DVT ?CHF - trend troponin - repeat EKG - ECHO - restrict dietary salt intake COPD - continue home Symbicort and Duoneb HTN - current low BP - will restart home antihypertensives when clinically indicated DM - hold home meds - ACHS BGM ISS PPX - DVT: heparin FEN - no standing fluids - replete lytes PRN - sodium restricted/diabetic diet Dispo: telemetry Family Medical History Family History: As Documented Visit type - Medication Review Med list reviewed for High Risk Meds patients 65 and older: Yes - Emergency Visit Emergency Visit: Yes ED Registration Date: 03/19/20 Care time: The patient presented to the Emergency Department on the above date and was hospitalized for further evaluation of their emergent condition. - New Patient This patient is new to me today: Yes Date on this admission: 03/20/20 - Critical Care Critical Care patient: No ATTENDING PHYSICIAN STATEMENT I saw and evaluated the patient. I reviewed the resident's note and discussed the case with the resident. I agree with the resident's findings and plan as documented. SUBJECTIVE: OBJECTIVE: ASSESSMENT AND PLAN:
[2020-03-20] MEDS: SODIUM BICARBONATE 8.4% - 150 MEQ in DEXTROSE 5%-WATER - 1,000 ML IV SCH (03:45)
[2020-03-20] MEDS ORDERED: HEPARIN NA (PORCINE) 5,000 UNITS/ML 1ML VIAL ONE ×3 (06:33→21:26)
[2020-03-20] MEDS: HEPARIN NA (PORCINE) 5,000 UNITS/ML 1ML VIAL SQ SCH ×3 (06:43→21:34)
[2020-03-20 07:15] LABS: EPI CELLS 18 /uL (0-25.1); HYALINE CASTS 8 /uL (0-3.1); URINE APPEARANCE TURBID; URINE BACTERIA >9,000 /uL (0-1359); URINE BILIRUBIN NEGATIVE (NEGATIVE); URINE COLOR YELLOW; URINE GLUCOSE (UA) NEGATIVE (NEGATIVE); URINE KETONE NEGATIVE (NEGATIVE); URINE LEUK ESTERASE 3+ (NEGATIVE); URINE NITRITE NEGATIVE (NEGATIVE); URINE PROTEIN 2+ (NEGATIVE); URINE RBC 149 /uL (0-23.9); URINE UROBILINOGEN 0.2 mg/dL (0.2-1.0); URINE WBC 1510 /uL (0-25.8)
[2020-03-20 08:21] LABS: EOS % 1.3 % (0-4.5); HEMATOCRIT 36.3 % (35.4-49); HEMOGLOBIN 12.3 GM/dL (11.7-16.9); LYMPH % 6.4 % (8-40); MCH 28.3 pg (25.7-33.7); MCHC 33.9 g/dl (32.0-35.9); MEAN CELL VOLUME 83.6 fl (80-96); MONO % 9.4 % (3.8-10.2); NEUT % 82.9 % (42.8-82.8); PLATELET COUNT 213 K/MM3 (134-434); RBC 4.34 M/mm3 (4.00-5.60); RDW 14.4 % (11.9-15.9); WHITE BLOOD COUNT 8.7 K/mm3 (4.0-10.0)
[2020-03-20 08:54] LABS: URINE CRYSTALS NON SEEN /hpf
[2020-03-20] MEDS: INSULIN SLIDING SCALE (NOVOLOG) 1 VIAL SQ SCH ×4 (09:01→21:34)
[2020-03-20 09:03] LABS: ALBUMIN 3.4 g/dl (3.4-5.0); ALK PHOS 67 U/L (45-117); ANION GAP 10 MMOL/L (8-16); BILIRUBIN,TOTAL 0.3 mg/dL (0.2-1); CALCIUM 8.5 mg/dL (8.5-10.1); CHLORIDE 110 mmol/L (98-107); CO2 11 mmol/L (21-32); CREATININE 5.8 mg/dL (0.55-1.3); GLUCOSE,RANDOM 397 mg/dL (74-106); PHOSPHOROUS 5.2 mg/dL (2.5-4.9); POTASSIUM 5.2 mmol/L (3.5-5.1); SGOT/AST 12 U/L (15-37); SGPT/ALT 18 U/L (13-61); SODIUM 131 mmol/L (136-145)
[2020-03-20 09:20] LABS: BLOOD UREA NITROGEN 153.4 mg/dL (7-18)
[2020-03-20] MEDS: CEFTRIAXONE 1 GM in DEXTROSE 5%-WATER - 50 ML IVPB SCH (10:00)
[2020-03-20] MEDS ORDERED: CEFTRIAXONE 1 GM/50 ML BAG ONE (10:34)
[2020-03-20] MEDS ORDERED: AZITHROMYCIN IVPB 500 MG/250 ML BAG IVPB ONE (10:35)
--- NOTE | 2020-03-20 10:37 | EKG ---
Test Reason : Blood Pressure : / mmHG Vent. Rate : 095 BPM Atrial Rate : 095 BPM P-R Int : 216 ms QRS Dur : 104 ms QT Int : 364 ms P-R-T Axes : 032 -51 082 degrees QTc Int : 457 ms SINUS RHYTHM WITH 1ST DEGREE A-V BLOCK POSSIBLE LEFT ATRIAL ENLARGEMENT LEFT AXIS DEVIATION LEFT VENTRICULAR HYPERTROPHY ABNORMAL ECG WHEN COMPARED WITH ECG OF 21-OCT-2019 13:22, NO SIGNIFICANT CHANGE WAS FOUND Confirmed by Torrey Zaman MD ([id number]) on 03/20/2020 10:36:43 AM Referred By: Confirmed By:Torrey Zaman MD
[2020-03-20] MEDS: AZITHROMYCIN IVPB 500 MG/250 ML BAG IVPB SCH (10:46)
[2020-03-20 10:58] LABS: ARTERIAL BLD GAS O2 SATURATION 97.4 mmHg (95-98); ARTERIAL BLOOD GAS BASE EXCESS -20.2 mmol/L (-2-2); ARTERIAL BLOOD GAS PO2 123.7 mmHg (80-100)
[2020-03-20 10:59] LABS: ALLENS TEST POSITIVE
[2020-03-20] MEDS ORDERED: SODIUM BICARBONATE 8.4% 50 MEQ/50 ML DISP.SYRIN IVPUSH ONE ×2 (11:04→15:43)
--- NOTE | 2020-03-20 11:14 | ECHO ---
Version: 1 Name: RAN THOMAS Exam: Adult Echocardiogram Study Date: 03/20/2020, 8:41 AM Age: 69 Years MMode/2D Measurements & Calculations IVSd: 1.35 cm LVIDs: 2.38 cm LVIDd: 3.6 cm LVPWd: 1.52 cm ACS: 1.89 cm Ao root diam: 3.5 cm LVOT diam: 2.23 cm LA dimension: 3.3 cm Doppler Measurements & Calculations MV E max kathy: 55.3 cm/sec MV A max kathy: 112.0 cm/sec MV E/A: 0.49 Ao max P.3 mmHg Ao V2 max: 168.3 cm/sec Left Ventricle The left ventricle is normal in size. There is moderate concentric left ventricular hypertrophy. Eje ction Fraction = 65%. The left ventricular ejection fraction is normal. The transmitral spectral Doppler f low pattern is suggestive of restrictive physiology. The left ventricular wall motion is normal. Right Ventricle The right ventricle is normal in size and function. Atria Normal left and right atrial size and function. Mitral Valve The mitral valve is normal in structure and function. Evaluation of regurgitation is inadequate. Tricuspid Valve The tricuspid valve is normal in structure and function. There is trace tricuspid regurgitation. The re was insufficient TR detected to calculate RV systolic pressure. Aortic Valve The aortic valve is normal in structure and function. Pulmonic Valve The pulmonic valve is normal in structure and function. Great Vessels Mild aortic root dilatation. Mildly dilated ascending aorta. Pericardium/Pleura There is no pericardial effusion. There is no pleural effusion. Tech Comments tds patient supine...with oxygen, difficulty breathing. Summary Statements The left ventricle is normal in size. There is moderate concentric left ventricular hypertrophy. The left ventricular ejection fraction is normal. Ejection Fraction = 65%. There is trace tricuspid regurgitation. Mild aortic root dilatation. Mildly dilated ascending aorta. MD Torrey Zaman 03/20/2020, 11:13 AM Ordering Physician: Chacho Bruce Referring Physician: chacho bruce Performed By: Natalie Munguia
[2020-03-20 11:17] LABS: ANISOCYTOSIS 1+; MACROCYTOSIS 0; PLATELET ESTIMATE NORMAL
[2020-03-20] MEDS ORDERED: SODIUM BICARBONATE 8.4% - 50 ML ONE ×2 (12:16→16:00)
--- NOTE | 2020-03-20 15:52 | CONSULT ---
Consult Consult Specialty:: Nephrology Reason for Consultation:: MEKA - History of Present Illness Chief Complaint: fatigue and weakness History of Present Illness: Coverage for Dr Forbes Pt is a 69 year old gentleman with pmhx of htn, ckd, hld, meka, cva, dm, copd, bladder cancer s/p cystectomy who presents with fatigue, weakness and progressive lower ext pain. He says that he has been feeling week. He denies shortness of breath. He is making urine from the urostomy. He was found to be in renal failure. He has ckd and follows with Dr Forman. He has had MEKA in the past. He denies fevers or chills. He says he would like to avoid dialysis. He is awake and alert. He has appetite and denies nausea or vomiting. 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 Cardio/Vascular: Yes: HTN, Hyperlipdemia Pulmonary: Yes: Bronchitis, COPD, Sleep Apnea Renal/: Yes: Renal Inusuff, Other (lucy durand) Endocrine: Yes: Diabetes Mellitus - Past Surgical History Past Surgical History: Yes: Cystectomy (05/2014) - Alcohol/Substance Use Hx Alcohol Use: No History of Substance Use: reports: None - Smoking History Smoking history: Never smoked Have you smoked in the past 12 months: No If you are a former smoker, when did you quit?: "years ago" - Social History Usual Living Arrangement: Alone ADL: Independent 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 History of Recent Travel: No Home Medications - Allergies Allergies/Adverse Reactions: Allergies Allergy/AdvReac Type Severity Reaction Status Date / Time shrimp Allergy Intermediate Vomiting Verified 03/19/20 18:00 - Home Medications Home Medications: Ambulatory Orders Atorvastatin Ca [Lipitor] 10 mg PO DAILY 06/07/17 Cyanocobalamin [Vitamin B12 -] 1,000 mcg PO DAILY 06/07/17 Doxazosin Mesylate [Cardura -] 4 mg PO DAILY 06/07/17 Insulin Detemir [Levemir Flextouch] 50 unit SQ BID 11/05/17 Aspirin 81 mg PO DAILY 06/18/18 Gabapentin 300 mg PO TID 06/18/18 Insulin (Novolog) [Novolog -] 50 units SQ TID 04/08/19 Losartan 50Mg/Hctz 12.5MG [Hyzaar -] 1 tab PO DAILY 03/20/20 Sodium Bicarbonate - 650 mg PO BID 03/20/20 Family Medical History Family History: Denies Review of Systems - Review of Systems Constitutional: reports: Malaise, Weakness. denies: Chills, Fever Eyes: reports: No Symptoms HENT: reports: No Symptoms Neck: reports: No Symptoms Cardiovascular: reports: No Symptoms Respiratory: reports: No Symptoms Gastrointestinal: reports: No Symptoms Genitourinary: reports: No Symptoms Musculoskeletal: reports: No Symptoms Neurological: reports: No Symptoms Endocrine: reports: No Symptoms Hematology/Lymphatic: reports: No Symptoms Psychiatric: reports: No Symptoms Physical Exam Vital Signs: Vital Signs Temperature 97.7 F 03/20/20 13:00 Pulse Rate 92 H 03/20/20 13:00 Respiratory Rate 18 03/20/20 13:00 Blood Pressure 137/62 03/20/20 13:00 O2 Sat by Pulse Oximetry (%) 100 03/20/20 13:00 Constitutional: Yes: Calm Eyes: Yes: Conjunctiva Clear HENT: Yes: Atraumatic Cardiovascular: Yes: S1, S2 Gastrointestinal: Yes: Soft Renal/: Yes: Other (ileal conduit) Musculoskeletal: Yes: WNL Edema: Yes Edema: LLE: 1+, RLE: 1+ Neurological: Yes: Oriented Psychiatric: Yes: Oriented Labs: CBC, BMP 03/20/20 08:00 03/20/20 08:00 Laboratory Tests 03/19/20 03/20/20 19:00 08:00 Potassium 5.4 H 5.2 H Carbon Dioxide 8 L 11 L Creatinine 5.9 H 5.8 H Imaging - Results Chest X-ray: Report Reviewed Ultrasound: Report Reviewed Problem List - Problems (1) Acute on chronic kidney failure Code(s): N17.9 - ACUTE KIDNEY FAILURE, UNSPECIFIED; N18.9 - CHRONIC KIDNEY DISEASE, UNSPECIFIED Qualifiers: Acute renal failure type: unspecified Chronic kidney disease stage: un specified stage Qualified Code(s): N17.9 - Acute kidney failure, unspecified; N18.9 - Chronic kidney disease, unspecified Assessment/Plan Current Medications Generic Name Dose Route Start Last Admin Trade Name Freq PRN Reason Stop Dose Admin Heparin Sodium (Porcine) 5,000 unit 03/20/20 06:00 03/20/20 14:21 Heparin - SQ 5,000 unit TID SHANEL Administration Azithromycin 500 mg in 250 mls @ 250 mls/hr 03/20/20 10:00 03/20/20 10:46 Zithromax 500mg Ivpb (Pre-Docked) IVPB 03/23/20 09:59 250 mls/hr DAILY SHANEL Administration Ceftriaxone Sodium 1 gm/ 50 mls @ 100 mls/hr 03/20/20 10:00 03/20/20 10:00 Dextrose IVPB 03/23/20 09:59 100 mls/hr DAILY SHANEL Administration Sodium Bicarbonate 150 meq/ 1,150 mls @ 100 mls/hr 03/20/20 03:00 03/20/20 03:45 Dextrose IV 100 mls/hr ASDIR SHANEL Administration Insulin Aspart 1 vial 03/20/20 07:00 03/20/20 12:00 Novolog Vial Sliding Scale - SQ 10 units ACHS SHANEL Administration Protocol Sodium Zirconium Cyclosilicate 10 gm 03/20/20 15:45 Lokelma PO 03/21/20 10:01 DAILY SHANEL Impression 1. CKD 2. meka 3. metabolic acidosis 4. bladder ca with ileal conduit 5. hyperkalemia 6. dm 7. htn 8. copd 9. 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 Cont to monitor response to fluids - will give 2 doses of lokelma
--- NOTE | 2020-03-20 16:18 | EKG ---
Test Reason : Blood Pressure : / mmHG Vent. Rate : 085 BPM Atrial Rate : 085 BPM P-R Int : 228 ms QRS Dur : 104 ms QT Int : 376 ms P-R-T Axes : 030 -49 067 degrees QTc Int : 447 ms SINUS RHYTHM WITH 1ST DEGREE A-V BLOCK LEFT AXIS DEVIATION MINIMAL VOLTAGE CRITERIA FOR LVH, MAY BE NORMAL VARIANT ABNORMAL ECG WHEN COMPARED WITH ECG OF 19-MAR-2020 21:51, NO SIGNIFICANT CHANGE WAS FOUND Confirmed by MD HENDERSON MOYSES ([id number]) on 03/20/2020 4:18:20 PM Referred By: Linda SMITH Confirmed By:KAY HENDERSON MD
--- NOTE | 2020-03-20 16:20 | PN ---
Physical Exam: SUBJECTIVE: Patient seen and examined at bedside. Patient states that he does not want to start dialysis. No other concerns or complaints at this time. OBJECTIVE: Vital Signs Period Temp Pulse Resp BP Sys/Argueta Pulse Ox Last 24 Hr 97.7 F-97.8 F 90-98 18-22 103-145/57-70 100-100 GENERAL: AAOx3, appears fatigued HEENT: NCAT, PERRLA, EOMI, sclera anicteric, conjunctiva clear, oropharynx clear w/o exudates. MMM. NECK: Normal ROM, supple, no lymphadenopathy, JVD, or masses LUNGS: CTABL no wheezes/ rhonchi/ rales. No distress, speaks in full sentences. No increased work of breathing. HEART: RRR, normal S1 S2, no M/R/G, peripheral pulses 2+ and equal b/l ABDOMEN: Soft, NTND, + BS. No guarding or rebound. No hepatomegaly or splenomegaly. MSK: ROM WNL EXTREMITIES: Normal inspection. No peripheral edema. No clubbing or cyanosis. NEUROLOGICAL: CN II-XII intact. Normal speech, normal gait, no focal sensorimotor deficits. SKIN: Warm, Dry, normal turgor, no rashes or lesions noted Laboratory Results - last 24 hr CBC, BMP 03/20/20 08:00 03/20/20 08:00 03/19/20 03/19/20 03/19/20 19:00 19:00 19:00 WBC RBC Hgb Hct MCV MCH MCHC RDW Plt Count MPV Absolute Neuts (auto) Neutrophils % Neutrophils % (Manual) Band Neutrophils % Lymphocytes % Lymphocytes % (Manual) Monocytes % Monocytes % (Manual) Eosinophils % Eosinophils % (Manual) Basophils % Basophils % (Manual) Myelocytes % (Man) Promyelocytes % (Man) Blast Cells % (Manual) Nucleated RBC % Metamyelocytes Hypochromia Platelet Estimate Polychromasia Poikilocytosis Anisocytosis Microcytosis Macrocytosis PT with INR 11.40 INR 0.97 PTT (Actin FS) 29.4 Anticoagulation Therapy Puncture Site Patient Temperature ABG pH ABG pCO2 ABG pO2 ABG HCO3 ABG O2 Sat (Measured) ABG O2 Content ABG Base Excess Ron Test VBG pH POC VBG pCO2 POC VBG pO2 VBG HCO3 VBG O2 Sat (Meredith) VBG Base Excess Patient On Oxygen O2 Delivery Device Oxygen Flow Rate Vent Mode Vent Rate Mechanical Rate PEEP Pressure Support Vent Sodium 132 L Potassium 5.4 H Chloride 111 H Carbon Dioxide 8 L Anion Gap 13 BUN 156.2 H* Creatinine 5.9 H Est GFR (CKD-EPI)AfAm 10.22 Est GFR (CKD-EPI)NonAf 8.82 POC Glucometer Random Glucose 289 H Calcium 8.8 Phosphorus Magnesium 2.9 H Total Bilirubin 0.3 AST 9 L ALT 20 Alkaline Phosphatase 77 Creatine Kinase 109 Troponin I < 0.02 B-Natriuretic Peptide 286.6 H Total Protein 8.0 Albumin 3.7 Urine Color Urine Appearance Urine pH Ur Specific [place] Urine Protein Urine Glucose (UA) Urine Ketones Urine Blood Urine Nitrite Urine Bilirubin Urine Urobilinogen Ur Leukocyte Esterase Urine WBC (Auto) Urine RBC (Auto) Urine Casts (Auto) U Epithel Cells (Auto) Urine Crystals (Auto) Urine Bacteria (Auto) 03/19/20 03/19/20 03/20/20 19:00 19:01 03:55 WBC 10.2 H RBC 4.73 Hgb 13.1 Hct 39.3 MCV 83.1 MCH 27.6 MCHC 33.3 RDW 14.6 Plt Count 238 MPV 8.2 Absolute Neuts (auto) 8.7 H Neutrophils % 85.1 H Neutrophils % (Manual) Band Neutrophils % Lymphocytes % 6.0 L D Lymphocytes % (Manual) Monocytes % 7.7 Monocytes % (Manual) Eosinophils % 1.0 D Eosinophils % (Manual) Basophils % 0.2 Basophils % (Manual) Myelocytes % (Man) Promyelocytes % (Man) Blast Cells % (Manual) Nucleated RBC % 0 Metamyelocytes Hypochromia Platelet Estimate Polychromasia Poikilocytosis Anisocytosis Microcytosis Macrocytosis PT with INR INR PTT (Actin FS) Anticoagulation Therapy Puncture Site Patient Temperature ABG pH ABG pCO2 ABG pO2 ABG HCO3 ABG O2 Sat (Measured) ABG O2 Content ABG Base Excess Ron Test VBG pH 6.989 L* POC VBG pCO2 30.7 L POC VBG pO2 40.0 VBG HCO3 7.2 L VBG O2 Sat (Meredith) 50.8 L VBG Base Excess -23.4 L Patient On Oxygen O2 Delivery Device Oxygen Flow Rate Vent Mode Vent Rate Mechanical Rate PEEP Pressure Support Vent Sodium Potassium Chloride Carbon Dioxide Anion Gap BUN Creatinine Est GFR (CKD-EPI)AfAm Est GFR (CKD-EPI)NonAf POC Glucometer Random Glucose Calcium Phosphorus Magnesium Total Bilirubin AST ALT Alkaline Phosphatase Creatine Kinase Troponin I B-Natriuretic Peptide Total Protein Albumin Urine Color Yellow Urine Appearance Turbid Urine pH 7.0 Ur Specific [place] 1.012 Urine Protein 2+ H Urine Glucose (UA) Negative Urine Ketones Negative Urine Blood 1+ H Urine Nitrite Negative Urine Bilirubin Negative Urine Urobilinogen 0.2 Ur Leukocyte Esterase 3+ H Urine WBC (Auto) 1510 Urine RBC (Auto) 149 Urine Casts (Auto) 8 U Epithel Cells (Auto) 18 Urine Crystals (Auto) Non seen Urine Bacteria (Auto) >9,000 03/20/20 03/20/20 03/20/20 08:00 08:00 08:58 WBC 8.7 RBC 4.34 Hgb 12.3 Hct 36.3 MCV 83.6 MCH 28.3 MCHC 33.9 RDW 14.4 Plt Count 213 MPV 8.0 Absolute Neuts (auto) 7.2 Neutrophils % 82.9 H Neutrophils % (Manual) 86.5 H D Band Neutrophils % 2.1 Lymphocytes % 6.4 L Lymphocytes % (Manual) 7.3 L D Monocytes % 9.4 Monocytes % (Manual) 3 L Eosinophils % 1.3 Eosinophils % (Manual) 0.0 D Basophils % 0.0 Basophils % (Manual) 0.0 Myelocytes % (Man) 0 Promyelocytes % (Man) 0 Blast Cells % (Manual) 0 Nucleated RBC % 0 Metamyelocytes 0 D Hypochromia 0 Platelet Estimate Normal Polychromasia 0 Poikilocytosis 0 Anisocytosis 1+ Microcytosis 1+ Macrocytosis 0 PT with INR INR PTT (Actin FS) Anticoagulation Therapy Puncture Site Patient Temperature ABG pH ABG pCO2 ABG pO2 ABG HCO3 ABG O2 Sat (Measured) ABG O2 Content ABG Base Excess Ron Test VBG pH POC VBG pCO2 POC VBG pO2 VBG HCO3 VBG O2 Sat (Meredith) VBG Base Excess Patient On Oxygen O2 Delivery Device Oxygen Flow Rate Vent Mode Vent Rate Mechanical Rate PEEP Pressure Support Vent Sodium 131 L Potassium 5.2 H Chloride 110 H Carbon Dioxide 11 L Anion Gap 10 BUN 153.4 H* Creatinine 5.8 H Est GFR (CKD-EPI)AfAm 10.43 Est GFR (CKD-EPI)NonAf 9.00 POC Glucometer 111 Random Glucose 397 H Calcium 8.5 Phosphorus 5.2 H Magnesium 3.0 H Total Bilirubin 0.3 AST 12 L ALT 18 Alkaline Phosphatase 67 Creatine Kinase Troponin I < 0.02 B-Natriuretic Peptide Total Protein 7.0 Albumin 3.4 Urine Color Urine Appearance Urine pH Ur Specific [place] Urine Protein Urine Glucose (UA) Urine Ketones Urine Blood Urine Nitrite Urine Bilirubin Urine Urobilinogen Ur Leukocyte Esterase Urine WBC (Auto) Urine RBC (Auto) Urine Casts (Auto) U Epithel Cells (Auto) Urine Crystals (Auto) Urine Bacteria (Auto) 03/20/20 03/20/20 10:48 11:56 WBC RBC Hgb Hct MCV MCH MCHC RDW Plt Count MPV Absolute Neuts (auto) Neutrophils % Neutrophils % (Manual) Band Neutrophils % Lymphocytes % Lymphocytes % (Manual) Monocytes % Monocytes % (Manual) Eosinophils % Eosinophils % (Manual) Basophils % Basophils % (Manual) Myelocytes % (Man) Promyelocytes % (Man) Blast Cells % (Manual) Nucleated RBC % Metamyelocytes Hypochromia Platelet Estimate Polychromasia Poikilocytosis Anisocytosis Microcytosis Macrocytosis PT with INR INR PTT (Actin FS) Anticoagulation Therapy No Result Required. Puncture Site Left radial Patient Temperature No Result Required. ABG pH 7.130 L* ABG pCO2 22.10 L ABG pO2 123.7 H ABG HCO3 7.2 L ABG O2 Sat (Measured) 97.4 ABG O2 Content No Result Required. ABG Base Excess -20.2 L Ron Test Positive VBG pH POC VBG pCO2 POC VBG pO2 VBG HCO3 VBG O2 Sat (Meredith) VBG Base Excess Patient On Oxygen Yes O2 Delivery Device N/c Oxygen Flow Rate No Result Required. Vent Mode No Result Required. Vent Rate No Result Required. Mechanical Rate No Result Required. PEEP No Result Required. Pressure Support Vent No Result Required. Sodium Potassium Chloride Carbon Dioxide Anion Gap BUN Creatinine Est GFR (CKD-EPI)AfAm Est GFR (CKD-EPI)NonAf POC Glucometer 371 Random Glucose Calcium Phosphorus Magnesium Total Bilirubin AST ALT Alkaline Phosphatase Creatine Kinase Troponin I B-Natriuretic Peptide Total Protein Albumin Urine Color Urine Appearance Urine pH Ur Specific [place] Urine Protein Urine Glucose (UA) Urine Ketones Urine Blood Urine Nitrite Urine Bilirubin Urine Urobilinogen Ur Leukocyte Esterase Urine WBC (Auto) Urine RBC (Auto) Urine Casts (Auto) U Epithel Cells (Auto) Urine Crystals (Auto) Urine Bacteria (Auto) Active Medications Generic Name Dose Route Start Last Admin Trade Name Osvaldo PRN Reason Stop Dose Admin Heparin Sodium (Porcine) 5,000 unit 03/20/20 06:00 03/20/20 14:21 Heparin - SQ 5,000 unit TID SHANEL Administration Azithromycin 500 mg in 250 mls @ 250 mls/hr 03/20/20 10:00 03/20/20 10:46 Zithromax 500mg Ivpb (Pre-Docked) IVPB 03/23/20 09:59 250 mls/hr DAILY SHANEL Administration Ceftriaxone Sodium 1 gm/ 50 mls @ 100 mls/hr 03/20/20 10:00 03/20/20 10:00 Dextrose IVPB 03/23/20 09:59 100 mls/hr DAILY SHANEL Administration Sodium Bicarbonate 150 meq/ 1,150 mls @ 100 mls/hr 03/20/20 03:00 03/20/20 03:45 Dextrose IV 100 mls/hr ASDIR SHANEL Administration Insulin Aspart 1 vial 03/20/20 07:00 03/20/20 12:00 Novolog Vial Sliding Scale - SQ 10 units ACHS SHANEL Administration Protocol Sodium Zirconium Cyclosilicate 10 gm 03/20/20 15:45 Lokelma PO 03/21/20 10:01 DAILY SHANEL ASSESSMENT/PLAN: 69yo M with PMHx of HTN, HLD, DM, CVA x2 with residual ataxia, MARLON, COPD on home O2, CKD, bladder carcinoma s/p cystectomy with urostomy who presents with SOB, HOLLY, and bilateral lower leg pain. Patient admitted for further management of MEKA on CKD, possible PNA, electrolyte dysregulation, and bilateral leg pain. #Leg Pain -bilateral LE US - no evidence of DVT -most likely due to fluid overload #Shortness of Breath -CXR-perihilar congestion vs infiltration - possible RLL PNA - abx: ceftriaxone and azithromycin #MEKA on CKD -chronic metabolic acidosis; on bicarb at home -nephro: Dr. Guevara- monitor fluids and give bicarb as needed. not recommending dialysis at this time as he thinks patient will respond to fluids and bicarb. -Pt. does not want dialysis. - kidney US- Significantly limited exam. Within the limitations of the exam no gross abnormality seen in the right or left kidneys although subtle underlying abnormalities cannot be excluded. - PTH, phos - I/O - avoid nephrotoxic agents - UA ordered #hyperkalemia - Lokelma given - BMP ordered for the AM #Rule out CHF - continue trend troponin - repeat EKG- sinus rhythm w 1st degree AV block; LAD; minimal voltage criteria for LVH - ECHO- left ventricle is normal in size, moderate concentric LVH, EF=65%, trace tricuspid regurgitation; mild aortic root dilation; mildly dilated ascending aorta #COPD - continue home Symbicort and Duoneb #HTN - will restart home antihypertensives when clinically indicated -restricted salt diet #Diabetes Mellitus - hold home meds - ACHS BGM ISS #FEN - no standing fluids - replete lytes and bicarb PRN - sodium restricted/diabetic diet #Prophylaxis - DVT: heparin SQ Dispo: telemetry Visit type - Emergency Visit Emergency Visit: No - New Patient This patient is new to me today: Yes Date on this admission: 03/20/20 - Critical Care Critical Care patient: No - Medication Review Med list reviewed for High Risk Meds patients 65 and older: Yes ATTENDING PHYSICIAN STATEMENT I saw and evaluated the patient. I reviewed the resident's note and discussed the case with the resident. I agree with the resident's findings and plan as documented. SUBJECTIVE: OBJECTIVE: ASSESSMENT AND PLAN:
[2020-03-20] MEDS: SODIUM ZIRCONIUM CYCLOSILICATE (LOKELMA) 5 GM PACKET PO SCH (16:47)
[2020-03-20 23:43] VITALS: BMI 41.3
[2020-03-21] MEDS: SODIUM BICARBONATE 8.4% - 150 MEQ in DEXTROSE 5%-WATER - 1,000 ML IV SCH ×4 (00:56→17:09)
[2020-03-21] MEDS: HEPARIN NA (PORCINE) 5,000 UNITS/ML 1ML VIAL SQ SCH ×3 (06:43→21:12)
[2020-03-21] MEDS: INSULIN SLIDING SCALE (NOVOLOG) 1 VIAL SQ SCH ×4 (06:43→21:11)
[2020-03-21 08:10] LABS: BASO % 0.5 % (0-2.0); EOS % 4.3 % (0-4.5); HEMATOCRIT 31.5 % (35.4-49); HEMOGLOBIN 10.8 GM/dL (11.7-16.9); LYMPH % 9.6 % (8-40); MCH 27.8 pg (25.7-33.7); MCHC 34.3 g/dl (32.0-35.9); MEAN PLT VOLUME 8.1 fl (7.5-11.1); MONO % 10.1 % (3.8-10.2); NEUT % 75.5 % (42.8-82.8); PLATELET COUNT 209 K/MM3 (134-434); RBC 3.88 M/mm3 (4.00-5.60); WHITE BLOOD COUNT 7.1 K/mm3 (4.0-10.0)
[2020-03-21 08:41] LABS: CALCIUM 8.5 mg/dL (8.5-10.1); CREATININE 4.5 mg/dL (0.55-1.3); POTASSIUM 3.7 mmol/L (3.5-5.1)
[2020-03-21] MEDS ORDERED: PT OWN MED DRAWER 7, Y5N ONE ×4 (09:29→12:36)
[2020-03-21] MEDS ORDERED: DEXTROSE 5%-WATER - 50 ML IVPB ONE (09:30)
[2020-03-21] MEDS ORDERED: cefTRIAXone SODIUM 1 GM VIAL ONE (09:30)
[2020-03-21] MEDS: CEFTRIAXONE 1 GM in DEXTROSE 5%-WATER - 50 ML IVPB SCH (09:35)
[2020-03-21] MEDS: AZITHROMYCIN IVPB 500 MG/250 ML BAG IVPB SCH (09:35)
[2020-03-21 11:13] LABS: BLOOD UREA NITROGEN 144.7 mg/dL (7-18)
[2020-03-21] MEDS: SODIUM ZIRCONIUM CYCLOSILICATE (LOKELMA) 5 GM PACKET PO SCH (12:37)
--- NOTE | 2020-03-21 13:45 | PN ---
Physical Exam: SUBJECTIVE: Patient seen and examined at bedside. No acute events reported overnight. This morning, patient states he feels the same as yesterday. Patient still does not want to start dialysis. No concerns or complaints at this time. OBJECTIVE: Vital Signs Period Temp Pulse Resp BP Sys/Argueta Pulse Ox Last 24 Hr 97.6 F-98.2 F 84-113 18-24 104-157/64-89 99-100 GENERAL: AAOx3, appears fatigued HEENT: NCAT, PERRLA, EOMI, sclera anicteric, conjunctiva clear, oropharynx clear w/o exudates. MMM. NECK: Normal ROM, supple, no lymphadenopathy, JVD, or masses LUNGS: CTABL no wheezes/ rhonchi/ rales. No distress, speaks in full sentences. No increased work of breathing. HEART: RRR, normal S1 S2, no M/R/G, peripheral pulses 2+ and equal b/l ABDOMEN: Soft, NTND, + BS. No guarding or rebound. No hepatomegaly or splenomegaly. MSK: ROM WNL EXTREMITIES: Normal inspection. No peripheral edema. No clubbing or cyanosis. NEUROLOGICAL: CN II-XII intact. Normal speech, normal gait, no focal sensorimotor deficits. SKIN: Warm, Dry, normal turgor, no rashes or lesions noted Laboratory Results - last 24 hr CBC, BMP 03/21/20 07:25 03/21/20 07:25 03/20/20 03/20/20 03/20/20 03:55 16:40 21:30 WBC RBC Hgb Hct MCV MCH MCHC RDW Plt Count MPV Absolute Neuts (auto) Neutrophils % Lymphocytes % Monocytes % Eosinophils % Basophils % Nucleated RBC % Sodium Potassium Chloride Carbon Dioxide Anion Gap BUN Creatinine Est GFR (CKD-EPI)AfAm Est GFR (CKD-EPI)NonAf POC Glucometer 302 303 Random Glucose Calcium COVID-19 (NOAH) Not detected 03/21/20 03/21/20 03/21/20 07:25 07:25 11:23 WBC 7.1 RBC 3.88 L Hgb 10.8 L Hct 31.5 L MCV 81.0 MCH 27.8 MCHC 34.3 RDW 14.0 Plt Count 209 MPV 8.1 Absolute Neuts (auto) 5.4 Neutrophils % 75.5 Lymphocytes % 9.6 D Monocytes % 10.1 Eosinophils % 4.3 D Basophils % 0.5 D Nucleated RBC % 0 Sodium 136 Potassium 3.7 Chloride 112 H Carbon Dioxide 14 L Anion Gap 11 BUN 144.7 H* Creatinine 4.5 H Est GFR (CKD-EPI)AfAm 14.18 Est GFR (CKD-EPI)NonAf 12.23 POC Glucometer 357 Random Glucose 254 H Calcium 8.5 COVID-19 (NOAH) Active Medications Generic Name Dose Route Start Last Admin Trade Name Freestela PRN Reason Stop Dose Admin Heparin Sodium (Porcine) 5,000 unit 03/20/20 06:00 03/21/20 06:43 Heparin - SQ 5,000 unit TID SHANEL Administration Azithromycin 500 mg in 250 mls @ 250 mls/hr 03/20/20 10:00 03/21/20 09:35 Zithromax 500mg Ivpb (Pre-Docked) IVPB 03/23/20 09:59 250 mls/hr DAILY SHANEL Administration Ceftriaxone Sodium 1 gm/ 50 mls @ 100 mls/hr 03/20/20 10:00 03/21/20 09:35 Dextrose IVPB 03/23/20 09:59 100 mls/hr DAILY SHANEL Administration Sodium Bicarbonate 150 meq/ 1,150 mls @ 125 mls/hr 03/21/20 08:51 03/21/20 10:50 Dextrose IV 125 mls/hr Q9H SHANEL Administration Insulin Aspart 1 vial 03/20/20 07:00 03/21/20 11:50 Novolog Vial Sliding Scale - SQ 10 units ACHS SHANEL Administration Protocol ASSESSMENT/PLAN: 69yo M with PMHx of HTN, HLD, DM, CVA x2 with residual ataxia, MARLON, COPD on home O2, CKD, bladder carcinoma s/p cystectomy with urostomy who presents with SOB, HOLLY, and bilateral lower leg pain. Patient admitted for further management of MEKA on CKD, possible PNA, electrolyte dysregulation, and bilateral leg pain. #Leg Pain -bilateral LE US - no evidence of DVT -most likely secondary from the patient's CKD #Shortness of Breath -CXR-perihilar congestion vs infiltration - possible RLL PNA - abx: ceftriaxone and azithromycin #MEKA on CKD -chronic metabolic acidosis; on bicarb at home -nephro: Dr. Guevara- monitor fluids. patient is currently on a bicarb drip but give bicarb amp as needed. not recommending dialysis at this time as he thinks patient will respond to fluids and bicarb. -Pt. does not want dialysis. - kidney US- Significantly limited exam. Within the limitations of the exam no gross abnormality seen in the right or left kidneys although subtle underlying abnormalities cannot be excluded. - minitor I/O - avoid nephrotoxic agents - UA- was contaminated repeat UA ordered today -repeat BMP ordered for this evening; will endorse to night team #hyperkalemia - resolved -continue to monitor K #COPD - continue home Symbicort and Duoneb #HTN - will restart home antihypertensives when clinically indicated -restricted salt diet #Diabetes Mellitus - hold home meds - ACHS BGM ISS #FEN - no standing fluids - replete lytes and bicarb PRN - sodium restricted/diabetic diet #Prophylaxis - DVT: heparin SQ Dispo: continue to monitor in tele Visit type - Emergency Visit Emergency Visit: No - New Patient This patient is new to me today: No - Critical Care Critical Care patient: No - Medication Review Med list reviewed for High Risk Meds patients 65 and older: Yes ATTENDING PHYSICIAN STATEMENT I saw and evaluated the patient. I reviewed the resident's note and discussed the case with the resident. I agree with the resident's findings and plan as documented. SUBJECTIVE: OBJECTIVE: ASSESSMENT AND PLAN:
--- NOTE | 2020-03-21 14:28 | PN ---
Teaching Attending Note Name of Resident: Godwin Vallejo ATTENDING PHYSICIAN STATEMENT I saw and evaluated the patient. I reviewed the resident's note and discussed the case with the resident. I agree with the resident's findings and plan as documented. SUBJECTIVE: Patient clinically improved, still short of breath OBJECTIVE: Vital Signs Period Temp Pulse Resp BP Sys/Argueta Pulse Ox Last 24 Hr 97.6 F-98.2 F 84-113 18-24 104-157/64-89 99-100 GENERAL: Awake, alert, in no acute distress. HEAD: Normal with no signs of trauma. EYES: Pupils equal, round and reactive to light, extraocular movements intact, sclera anicteric, conjunctiva clear. EARS, NOSE, THROAT: Ears normal, nares patent, Moist mucous membranes. NECK: Normal range of motion, unable to assess JVD LUNGS:crackles bilaterally HEART: Regular rate and rhythm, normal S1 and S2 without murmur, rub or gallop. ABDOMEN: Soft, nontender, not distended, normoactive bowel sounds, no guarding, no rebound, obese MUSCULOSKELETAL: Normal range of motion at all joints. No bony deformities or tenderness. No CVA tenderness. EXTREMITIES: b/l LE edema to mid thigh NEUROLOGICAL: Cranial nerves II-XII intact. Normal speech. PSYCHIATRIC: Cooperative. Good eye contact. Appropriate mood and affect. SKIN: Warm, dry, normal turgor, no rashes or lesions noted. ASSESSMENT AND PLAN: 69 y/o M with Hx of Obesity, HTN, HLD, NIDDM, CVA, COPD, CKD, Bladder CA who presents with SOB and Lower Extremity edema SOB/LE edema in setting of Renal failure Ideally, patient should have HD however, patient would like to manage without at this time Will continue Bicarb Gtt at this time Encourage elevation/compression stockings Defer Diuretics to Renal recs Continue to monitor fluid status/Acidemia Baseline Cr around 2.5-3 avoid nephrotoxic meds Hyperkalemia: Resolved Continue to monitor
[2020-03-21 18:10] LABS: EPI CELLS 14 /uL (0-25.1); HYALINE CASTS 11 /uL (0-3.1); PH,URINE 7.5 (5.0-8.0); URINE APPEARANCE CLOUDY; URINE BACTERIA >9,000 /uL (0-1359); URINE BILIRUBIN NEGATIVE (NEGATIVE); URINE COLOR YELLOW; URINE GLUCOSE (UA) NEGATIVE (NEGATIVE); URINE KETONE NEGATIVE (NEGATIVE); URINE LEUK ESTERASE 2+ (NEGATIVE); URINE NITRITE POSITIVE (NEGATIVE); URINE PROTEIN 1+ (NEGATIVE); URINE RBC 36 /uL (0-23.9); URINE UROBILINOGEN 0.2 mg/dL (0.2-1.0); URINE WBC 329 /uL (0-25.8)
--- NOTE | 2020-03-21 19:40 | PN ---
Progress Note, Physician Chief Complaint: Leg pain and weakness History of Present Illness: Seen and examined at the bedside awake and alert reports feeling better denies any shortness of breath, chest pain or abdominal pain still has tenderness of the lower extremity denies any diarrhea denies flank pain tolerating diet - Current Medication List Current Medications: Active Medications Heparin Sodium (Porcine) (Heparin -) 5,000 unit SQ TID [facility] Last Admin: 03/21/20 13:41 Dose: 5,000 unit Documented by: Azithromycin (Zithromax 500mg Ivpb (Pre-Docked)) 500 mg in 250 mls @ 250 mls/hr IVPB DAILY [facility] Stop: 03/23/20 09:59 Last Admin: 03/21/20 09:35 Dose: 250 mls/hr Documented by: Ceftriaxone Sodium 1 gm/ (Dextrose) 50 mls @ 100 mls/hr IVPB DAILY [facility] Stop: 03/23/20 09:59 Last Admin: 03/21/20 09:35 Dose: 100 mls/hr Documented by: Sodium Bicarbonate 150 meq/ (Dextrose) 1,150 mls @ 125 mls/hr IV Q9H [facility] Last Admin: 03/21/20 17:09 Dose: Not Given Documented by: Insulin Aspart (Novolog Vial Sliding Scale -) 1 vial SQ ACHS [facility]; Protocol Last Admin: 03/21/20 17:08 Dose: 6 units Documented by: - Objective Vital Signs: Vital Signs Temperature 98.1 F 03/21/20 18:00 Pulse Rate 87 03/21/20 18:00 Respiratory Rate 18 03/21/20 18:00 Blood Pressure 154/73 03/21/20 18:00 O2 Sat by Pulse Oximetry (%) 99 03/21/20 18:00 Constitutional: Yes: No Distress, Calm Neck: Yes: Supple Cardiovascular: Yes: Regular Rate and Rhythm Respiratory: Yes: Regular, CTA Bilaterally Gastrointestinal: Yes: Soft, Abdomen, Obese. No: Tenderness Genitourinary: Yes: Other (cystectomy) Edema: Yes Edema: LLE: Trace, RLE: Trace Neurological: Yes: Alert, Oriented Labs: CBC, BMP 03/21/20 07:25 03/21/20 07:25 INR, PTT INR 0.97 (0.83-1.09) 03/19/20 19:00 Assessment/Plan 69 year old gentleman with pmhx of htn, ckd, hld, lana, cva, dm, copd, bladder cancer s/p cystectomy who presents with fatigue, weakness and progressive lower ext pain. 1. Acute kidney injury on CKD 2. CKD stage 4 3. Metabolic acidosis from renal failure +Ileal conduit 4. Hyperkalemia 5. Anemia in CKD 6. Hypertension 7. Dyspnea w/o evidence of PNA/CHF Renal function improving with IVF/Bicarbonate There is no acute indication for renal replacement therapy. Continue D5W with 150meq of sodium bicarb at 125cc per hour. Baseline Cr ~3 (last was 3.1 in early February) Can d/c Lokelma if K < 4.5 No МАРИНА/ARB give low eGFR Check blood culture to r/o occult infection Trend BP if remains consistently > 150 systolic start CCB Trend renal function and electrolytes daily Thank you Freddie Forbes DO
[2020-03-22] MEDS ORDERED: AMIODARONE HCL 150 MG/3 ML VIAL IVPUSH ONE ×3 (02:09→02:31)
[2020-03-22] MEDS ORDERED: AMIODARONE HCL INJECTION 150 MG in DEXTROSE 5%-WATER - 100 ML IVPB ONE (02:23)
[2020-03-22] MEDS ORDERED: AMIODARONE IN DEXTROSE,ISO-OSM 360 MG/200 ML BAG IVPB ONE (02:23)
[2020-03-22] MEDS ORDERED: PROPOFOL 200 MG/20 ML VIAL IVPUSH ONE (02:28)
[2020-03-22] MEDS ORDERED: PROPOFOL 1,000,000 MCG/100 ML VIAL IVPB SCH (02:30)
[2020-03-22 03:06] LABS: HEMATOCRIT 25.4 % (35.4-49); HEMOGLOBIN 7.6 GM/dL (11.7-16.9); MCH 28.4 pg (25.7-33.7); MCHC 30.1 g/dl (32.0-35.9); MEAN CELL VOLUME 94.4 fl (80-96); MEAN PLT VOLUME 8.1 fl (7.5-11.1); PLATELET COUNT 138 K/MM3 (134-434); RBC 2.69 M/mm3 (4.00-5.60); RDW 15.2 % (11.9-15.9); WHITE BLOOD COUNT 5.2 K/mm3 (4.0-10.0)
[2020-03-22 03:11] LABS: ARTERIAL BLD GAS O2 SATURATION 99.8 mmHg (95-98); ARTERIAL BLOOD GAS BASE EXCESS -11.6 mmol/L (-2-2); ARTERIAL BLOOD GAS PO2 436.9 mmHg (80-100); ARTERIAL BLOOD GAS pH 7.254 (7.350-7.450)
[2020-03-22 03:13] LABS: ALLENS TEST POSITIVE
[2020-03-22 03:14] LABS: VENT MODE A/C; VENT RATE 18
[2020-03-22] MEDS ORDERED: MAGNESIUM SULFATE IN WATER 2 GM/50 ML IVPB IVPB ONE (03:34)
[2020-03-22] MEDS ORDERED: FENTANYL NS IVPB 500 MCG/100 ML BAG IVPB ONE (04:08)
--- NOTE | 2020-03-22 04:12 | CONSULT ---
Consultation: REQUESTING PROVIDER: Dr. Moody CONSULT REQUEST: We have been asked to medically evaluate this patient for ICU admission HISTORY OF PRESENT ILLNESS: 69 year old male with PMH of HTN, HLD, DM, CVA, MARLON, COPD on home O2, CKD, bladder carcinoma s/p cystectomy with urostomy presented to the ER with SOB and BL leg pain, associated with intermittent chest pain and a dry cough. Was seen by nephro and diagnosed with MEKA on CKD stage 4, pt refused HD and was being managed with IVF and Bicarb drip. Code 99 was called at -- AM, patient was found to be in pulseless VFib. ACLS protocol was initiated, pt was defibrillated x1, intubated, ROSC was achieved, and pt was transferred to ICU. He was also found to be hypotensive and was started on Vasopressin. REVIEW OF SYSTEMS: Pt sedated and intubated PHYSICAL EXAMINATION Vital Signs - 24 hr 03/21/20 03/21/20 03/21/20 06:00 09:00 10:00 Temperature 98.1 F 98.2 F Pulse Rate 86 89 Respiratory 20 20 Rate Blood Pressure 140/76 157/89 O2 Sat by Pulse 99 100 100 Oximetry (%) 03/21/20 03/21/20 03/21/20 13:32 16:00 18:00 Temperature 98 F 98.1 F Pulse Rate 84 87 Respiratory 18 19 18 Rate Blood Pressure 137/72 154/73 O2 Sat by Pulse 100 99 Oximetry (%) 03/21/20 03/21/20 03/22/20 21:00 22:00 01:53 Temperature 98.1 F 98.5 F Pulse Rate 78 82 Respiratory 20 18 Rate Blood Pressure 136/84 126/65 O2 Sat by Pulse 98 98 99 Oximetry (%) 03/22/20 02:45 Temperature Pulse Rate Respiratory 22 H Rate Blood Pressure O2 Sat by Pulse 100 Oximetry (%) GENERAL: Intubated and sedated LUNGS: Vented breath sounds B/L HEART: Regular rate and rhythm, normal S1 and S2 without murmur, rub or gallop. ABDOMEN: Soft, nontender, non distended LOWER EXTREMITIES: 2+ pulses, warm, well-perfused. No calf tenderness. No peripheral edema. NEUROLOGICAL: Sedated SKIN: Warm, dry, normal turgor, no rashes or lesions noted. Laboratory Results - last 24 hr 03/20/20 03/20/20 03/21/20 03:55 08:00 07:25 WBC 7.1 RBC 3.88 L Hgb 10.8 L Hct 31.5 L MCV 81.0 MCH 27.8 MCHC 34.3 RDW 14.0 Plt Count 209 MPV 8.1 Absolute Neuts (auto) 5.4 Neutrophils % 75.5 Lymphocytes % 9.6 D Monocytes % 10.1 Eosinophils % 4.3 D Basophils % 0.5 D Nucleated RBC % 0 Anticoagulation Therapy Puncture Site Patient Temperature ABG pH ABG pCO2 ABG pO2 ABG HCO3 ABG O2 Sat (Measured) ABG O2 Content ABG Base Excess Ron Test Patient On Oxygen O2 Delivery Device Oxygen Flow Rate Vent Mode Vent Rate Mechanical Rate PEEP Pressure Support Vent Sodium Potassium Chloride Carbon Dioxide Anion Gap BUN Creatinine Est GFR (CKD-EPI)AfAm Est GFR (CKD-EPI)NonAf POC Glucometer Random Glucose Calcium Phosphorus Magnesium AST ALT PTH Intact 75 H Urine Color Urine Appearance Urine pH Ur Specific [place] Urine Protein Urine Glucose (UA) Urine Ketones Urine Blood Urine Nitrite Urine Bilirubin Urine Urobilinogen Ur Leukocyte Esterase Urine WBC (Auto) Urine RBC (Auto) Urine Casts (Auto) U Epithel Cells (Auto) Urine Bacteria (Auto) COVID-19 (NOAH) Not detected 03/21/20 03/21/20 03/21/20 07:25 11:23 13:50 WBC RBC Hgb Hct MCV MCH MCHC RDW Plt Count MPV Absolute Neuts (auto) Neutrophils % Lymphocytes % Monocytes % Eosinophils % Basophils % Nucleated RBC % Anticoagulation Therapy Puncture Site Patient Temperature ABG pH ABG pCO2 ABG pO2 ABG HCO3 ABG O2 Sat (Measured) ABG O2 Content ABG Base Excess Ron Test Patient On Oxygen O2 Delivery Device Oxygen Flow Rate Vent Mode Vent Rate Mechanical Rate PEEP Pressure Support Vent Sodium 136 Potassium 3.7 Chloride 112 H Carbon Dioxide 14 L Anion Gap 11 BUN 144.7 H* Creatinine 4.5 H Est GFR (CKD-EPI)AfAm 14.18 Est GFR (CKD-EPI)NonAf 12.23 POC Glucometer 357 Random Glucose 254 H Calcium 8.5 Phosphorus Magnesium AST ALT PTH Intact Urine Color Yellow Urine Appearance Cloudy Urine pH 7.5 Ur Specific [place] 1.010 Urine Protein 1+ H Urine Glucose (UA) Negative Urine Ketones Negative Urine Blood Trace Urine Nitrite Positive H Urine Bilirubin Negative Urine Urobilinogen 0.2 Ur Leukocyte Esterase 2+ H Urine WBC (Auto) 329 Urine RBC (Auto) 36 Urine Casts (Auto) 11 U Epithel Cells (Auto) 14 Urine Bacteria (Auto) >9,000 COVID-19 (NOAH) 03/21/20 03/21/20 03/22/20 16:11 21:11 02:45 WBC 5.2 RBC 2.69 L Hgb 7.6 L Hct 25.4 L D MCV 94.4 D MCH 28.4 MCHC 30.1 L RDW 15.2 Plt Count 138 D MPV 8.1 Absolute Neuts (auto) Neutrophils % Lymphocytes % Monocytes % Eosinophils % Basophils % Nucleated RBC % Anticoagulation Therapy Puncture Site Patient Temperature ABG pH ABG pCO2 ABG pO2 ABG HCO3 ABG O2 Sat (Measured) ABG O2 Content ABG Base Excess Orn Test Patient On Oxygen O2 Delivery Device Oxygen Flow Rate Vent Mode Vent Rate Mechanical Rate PEEP Pressure Support Vent Sodium Potassium Chloride Carbon Dioxide Anion Gap BUN Creatinine Est GFR (CKD-EPI)AfAm Est GFR (CKD-EPI)NonAf POC Glucometer 281 307 Random Glucose Calcium Phosphorus Magnesium AST ALT PTH Intact Urine Color Urine Appearance Urine pH Ur Specific [place] Urine Protein Urine Glucose (UA) Urine Ketones Urine Blood Urine Nitrite Urine Bilirubin Urine Urobilinogen Ur Leukocyte Esterase Urine WBC (Auto) Urine RBC (Auto) Urine Casts (Auto) U Epithel Cells (Auto) Urine Bacteria (Auto) COVID-19 (NOAH) 03/22/20 03/22/20 02:45 02:45 WBC RBC Hgb Hct MCV MCH MCHC RDW Plt Count MPV Absolute Neuts (auto) Neutrophils % Lymphocytes % Monocytes % Eosinophils % Basophils % Nucleated RBC % Anticoagulation Therapy No Result Required. Puncture Site Right radial Patient Temperature No Result Required. ABG pH 7.254 L ABG pCO2 33.60 L ABG pO2 436.9 H ABG HCO3 14.5 L ABG O2 Sat (Measured) 99.8 H ABG O2 Content No Result Required. ABG Base Excess -11.6 L Ron Test Positive Patient On Oxygen Yes O2 Delivery Device Vent Oxygen Flow Rate 100% Vent Mode A/c Vent Rate 18 Mechanical Rate Yes PEEP 5.0 Pressure Support Vent 450 Sodium Potassium Chloride Carbon Dioxide 7 L Anion Gap BUN Creatinine 2.5 H Est GFR (CKD-EPI)AfAm 28.86 Est GFR (CKD-EPI)NonAf 24.90 POC Glucometer Random Glucose Calcium Phosphorus 1.8 L Magnesium 1.3 L AST 20 ALT 18 PTH Intact Urine Color Urine Appearance Urine pH Ur Specific [place] Urine Protein Urine Glucose (UA) Urine Ketones Urine Blood Urine Nitrite Urine Bilirubin Urine Urobilinogen Ur Leukocyte Esterase Urine WBC (Auto) Urine RBC (Auto) Urine Casts (Auto) U Epithel Cells (Auto) Urine Bacteria (Auto) COVID-19 (NOAH) Active Medications Generic Name Dose Route Start Last Admin Trade Name Freq PRN Reason Stop Dose Admin Chlorhexidine Gluconate 1 applic 03/22/20 22:00 Hibiclens For Decolonization - TP HS SHANEL Heparin Sodium (Porcine) 5,000 unit 03/20/20 06:00 03/21/20 21:12 Heparin - SQ 5,000 unit TID SHANEL Administration Azithromycin 500 mg in 250 mls @ 250 mls/hr 03/20/20 10:00 03/21/20 09:35 Zithromax 500mg Ivpb (Pre-Docked) IVPB 03/23/20 09:59 250 mls/hr DAILY SHANEL Administration Ceftriaxone Sodium 1 gm/ 50 mls @ 100 mls/hr 03/20/20 10:00 03/21/20 09:35 Dextrose IVPB 03/23/20 09:59 100 mls/hr DAILY SHANEL Administration Sodium Bicarbonate 150 meq/ 1,150 mls @ 125 mls/hr 03/21/20 08:51 03/21/20 17:09 Dextrose IV Not Given Q9H SHANEL Amiodarone HCl/Dextrose 360 mg in 200 mls @ 16.667 mls/hr 03/22/20 08:00 Nexterone 360 Mg/200 Ml Bag IVPB ASDIR SHANEL 0.5 MG/MIN Amiodarone HCl/Dextrose 360 mg in 200 mls @ 33.333 mls/hr 03/22/20 02:23 Nexterone 360 Mg/200 Ml Bag IVPB 03/22/20 08:22 TITR ONE Protocol 1 MG/MIN Propofol 1,000,000 mcg in 100 mls @ 3.592 mls/hr 03/22/20 02:30 Diprivan - IVPB TITR SHANEL Protocol 5 MCG/KG/MIN Midazolam HCl 100 mg/ Sodium 100 mls @ 1 mls/hr 03/22/20 03:30 Chloride IVPB TITR SHANEL Protocol 1 MG/HR Vasopressin 40 units/ Sodium 100 mls @ 5 mls/hr 03/22/20 03:30 Chloride IVPB ASDIR SHANEL Protocol 2 UNITS/HR Magnesium Sulfate 2 gm in 50 mls @ 50 mls/hr 03/22/20 03:34 Magnesium Sulf 2 G/50 Ml Bag IVPB 03/22/20 04:33 ONCE ONE Fentanyl 500 mcg in 100 mls @ 23.95 mls/hr 03/22/20 04:00 Sublimaze Ivpb IVPB TITR SHANEL 1 MCG/KG/HR Insulin Aspart 1 vial 03/20/20 07:00 03/21/20 21:11 Novolog Vial Sliding Scale - SQ 8 units ACHS SHANEL Administration Protocol Mupirocin 1 applic 03/22/20 10:00 Bactroban Ointment (For Decolonization) - NS 03/27/20 09:59 BID SHANEL ASSESSMENT/PLAN: 69M with PMH of HTN, HLD, DM, CVA, MARLON, COPD on home O2, CKD, bladder carcinoma s/p cystectomy with urostomy presented to the ER with SOB and BL leg pain, found to have MEKA on CKD pt refused HD and was being managed with IVF and Bicarb drip. Pt went into VFib earlier today, ROSC was achieved, pt was intubated and transferred to the ICU for further monitoring. #CHANNELER OUTSOLE - Sedated on Midazolam, Fentanyl #CVS - Started on Amiodarone drip after pulseless VFib - On Vasopressin for hypotension #Resp - CXR shows perihilar congestion/infiltration - On Ceftriaxone and Azithromycin for possible RLL PNA #Renal - Cr 4.5 -> 2.5 today - CKD stage 4, refusing HD - On Bicarb drip @ 125/HR - Nephro on board #ID - Ceftriaxone, Azithromycin for possible PNA - UA with 2+ LE, >9k bacteria - Urine cx contaminated, blood cx pending #Heme - Hg 10.8 -> 7.6 today - FOBT ordered #Endo - BGM, ISS #FEN - Mag 1.3, repleted with 2gm - Phos 1.8 #Prophylaxis - Protonix IV - Heparin on hold due to Hg drop #Dispo - Continue to monitor in the ICU ATTENDING PHYSICIAN STATEMENT I saw and evaluated the patient. I reviewed the resident's note and discussed the case with the resident. I agree with the resident's findings and plan as documented. SUBJECTIVE: OBJECTIVE: ASSESSMENT AND PLAN:
--- NOTE | 2020-03-22 04:23 | RAPID ---
Physical Examination Vital Signs: Vital Signs Temperature 98.5 F 03/22/20 01:53 Pulse Rate 82 03/22/20 01:53 Respiratory Rate 22 H 03/22/20 02:45 Blood Pressure 126/65 03/22/20 01:53 O2 Sat by Pulse Oximetry (%) 100 03/22/20 02:45 Findings/Remarks: Code 99 called. Pt found to be pulseless. Briefly displaying signs of agonal breathing Labs: CBC, BMP 03/22/20 02:45 03/22/20 02:45 Rapid Response - Rapid Response Assessment: ACLS initiated for pulselessness. Rhythm showed Vfib. Shock delivered. ROSC achieved. Rhythm displayed irregularity and PVCs which devolved to Vfib. ACLS re-initiated. Epi IVP given. Shock delivered. Amiodarone IVP given. ROSC achieved. Pt intubated to protect airway. Amiodarone gtt started. See code sheet for further details.
[2020-03-22] MEDS: SODIUM BICARBONATE 8.4% - 150 MEQ in DEXTROSE 5%-WATER - 1,000 ML IV SCH ×3 (04:29→22:13)
[2020-03-22] MEDS: VASOPRESSIN 40 UNITS in SODIUM CHLORIDE 98 ML IVPB SCH (04:30)
[2020-03-22] MEDS: FENTANYL IVPB 500 MCG/100 ML BAG IVPB SCH ×3 (04:30→08:37)
[2020-03-22] MEDS: MIDAZOLAM 100 MG in SODIUM CHLORIDE 100 ML IVPB SCH (04:30)
[2020-03-22 07:22] LABS: BASO % 0.4 % (0-2.0); EOS % 1.7 % (0-4.5); HEMATOCRIT 29.3 % (35.4-49); MCH 27.8 pg (25.7-33.7); MCHC 34.3 g/dl (32.0-35.9); MEAN PLT VOLUME 8.4 fl (7.5-11.1); MONO % 8.9 % (3.8-10.2); PLATELET COUNT 194 K/MM3 (134-434); RBC 3.61 M/mm3 (4.00-5.60); RDW 13.8 % (11.9-15.9); WHITE BLOOD COUNT 8.6 K/mm3 (4.0-10.0)
[2020-03-22] MEDS ORDERED: DEXTROSE 5%-WATER - 50 ML IVPB ONE (07:49)
[2020-03-22] MEDS ORDERED: cefTRIAXone SODIUM 1 GM VIAL ONE (07:49)
[2020-03-22] MEDS ORDERED: AMIODARONE IN DEXTROSE,ISO-OSM 360 MG/200 ML BAG IVPB SCH ×2 (08:00→08:15)
[2020-03-22 08:11] LABS: ALBUMIN 2.8 g/dl (3.4-5.0); BILIRUBIN,TOTAL 0.3 mg/dL (0.2-1); CALCIUM 7.9 mg/dL (8.5-10.1); CREATININE 3.7 mg/dL (0.55-1.3); MAGNESIUM 3.4 mg/dL (1.8-2.4); PHOSPHOROUS 4.1 mg/dL (2.5-4.9); POTASSIUM 3.4 mmol/L (3.5-5.1)
[2020-03-22 08:18] LABS: TOT PROT 5.9 g/dl (6.4-8.2)
[2020-03-22 08:37] LABS: BLOOD UREA NITROGEN 115.9 mg/dL (7-18)
[2020-03-22] MEDS: KCL 10 MEQ IVPB 10 MEQ/100 ML INFUS.BAG IVPB SCH ×2 (08:50→12:12)
[2020-03-22] MEDS: PANTOPRAZOLE SODIUM 40 MG VIAL IVPUSH SCH (09:46)
[2020-03-22] MEDS ORDERED: AZITHROMYCIN IVPB 500 MG/250 ML BAG IVPB SCH (10:00)
[2020-03-22] MEDS ORDERED: CEFTRIAXONE 1 GM in DEXTROSE 5%-WATER - 50 ML IVPB SCH (10:00)
[2020-03-22] MEDS: MUPIROCIN 2% TOPICAL OINTMENT FOR DECOLONIZATION NS SCH ×2 (10:55→22:13)
[2020-03-22 11:06] LABS: ARTERIAL BLD GAS O2 SATURATION 99.3 mmHg (95-98); ARTERIAL BLOOD GAS BASE EXCESS -5.7 mmol/L (-2-2); ARTERIAL BLOOD GAS PO2 180.2 mmHg (80-100); ARTERIAL BLOOD GAS pH 7.416 (7.350-7.450)
[2020-03-22 11:10] LABS: ALLENS TEST POSITIVE
[2020-03-22 11:11] LABS: VENT MODE A/C; VENT RATE 20
[2020-03-22] MEDS: INSULIN SLIDING SCALE (NOVOLOG) 1 VIAL SQ SCH ×3 (12:28→22:24)
--- NOTE | 2020-03-22 12:54 | PN ---
Progress Note, Physician Chief Complaint: Leg pain and weakness History of Present Illness: Seen and examined in the ICU Yesterdays events reviewed pt now extubated feels cold denies any shortness of breath, chest pain or abdominal pain - Current Medication List Current Medications: Active Medications Chlorhexidine Gluconate (Hibiclens For Decolonization -) 1 applic TP HS SHANEL Heparin Sodium (Porcine) (Heparin -) 5,000 unit SQ TID [facility] Midazolam HCl 100 mg/ Sodium (Chloride) 100 mls @ 1 mls/hr IVPB TITR [facility]; Protocol Last Admin: 03/22/20 04:30 Dose: 1 mg/hr, 1 mls/hr Documented by: Vasopressin 40 units/ Sodium (Chloride) 100 mls @ 5 mls/hr IVPB ASDIR [facility]; Protocol Last Admin: 03/22/20 04:30 Dose: 2 units/hr, 5 mls/hr Documented by: Fentanyl (Sublimaze Ivpb) 500 mcg in 100 mls @ 23.95 mls/hr IVPB TITR [facility]; Protocol Last Admin: 03/22/20 08:37 Dose: 0.42 mcg/kg/hr, 10 mls/hr Documented by: Ceftriaxone Sodium 1 gm/ (Dextrose) 50 mls @ 100 mls/hr IVPB DAILY [facility] Stop: 03/23/20 09:59 Last Admin: 03/22/20 09:46 Dose: 100 mls/hr Documented by: Azithromycin (Zithromax 500mg Ivpb (Pre-Docked)) 500 mg in 250 mls @ 250 mls/hr IVPB DAILY [facility] Stop: 03/23/20 09:59 Last Admin: 03/22/20 09:46 Dose: 250 mls/hr Documented by: Sodium Bicarbonate 150 meq/ (Dextrose) 1,150 mls @ 140.244 mls/hr IV Q8H [facility] Last Admin: 03/22/20 12:13 Dose: 140.244 mls/hr Documented by: Insulin Aspart (Novolog Vial Sliding Scale -) 1 vial SQ ACHS [facility]; Protocol Last Admin: 03/22/20 12:28 Dose: 10 units Documented by: Mupirocin (Bactroban Ointment (For Decolonization) -) 1 applic NS BID [facility] Stop: 03/27/20 09:59 Last Admin: 03/22/20 10:55 Dose: 1 applic Documented by: Pantoprazole Sodium (Protonix Iv) 40 mg IVPUSH DAILY [facility] Last Admin: 03/22/20 09:46 Dose: 40 mg Documented by: Sodium Bicarbonate (Sodium Bicarbonate -) 1,300 mg PO BID [facility] - Objective Vital Signs: Vital Signs Temperature 98.6 F 03/22/20 10:00 Pulse Rate 70 03/22/20 11:27 Respiratory Rate 20 03/22/20 11:27 Blood Pressure 146/76 03/22/20 11:27 O2 Sat by Pulse Oximetry (%) 100 03/22/20 09:05 Constitutional: Yes: No Distress, Calm HENT: Yes: Atraumatic Neck: Yes: Supple Cardiovascular: Yes: Regular Rate and Rhythm Respiratory: Yes: Regular Gastrointestinal: Yes: Soft. No: Tenderness Extremities: No: Cyanosis Edema: Yes Neurological: Yes: Alert Labs: CBC, BMP 03/22/20 05:45 03/22/20 05:45 INR, PTT INR 0.97 (0.83-1.09) 03/19/20 19:00 Assessment/Plan 69 year old gentleman with pmhx of htn, ckd, hld, lana, cva, dm, copd, bladder cancer s/p cystectomy who presents with fatigue, weakness and progressive lower ext pain. 1. Acute kidney injury on CKD 2. CKD stage 4 3. Metabolic acidosis from renal failure +Ileal conduit 4. Hyperkalemia 5. Anemia in CKD 6. Hypertension 7. Dyspnea w/o evidence of PNA/CHF 8. V-fib arrest Yesterdays events may have been percipitated by his acidosis. Currently bicarb is much improved and ABG ph is >7.4 Renal function also continues to improve There is no acute indication for renal replacement therapy. Continue D5W with 150meq of sodium bicarb at 125cc per hour. Baseline Cr ~3 (last was 3.1 in early February) Can d/c Lokelma No МАРИНА/ARB give low eGFR Follow up blood culture to r/o occult infection Trend BP if remains consistently > 150 systolic start CCB Trend renal function and electrolytes daily Thank you Freddie Forbes DO
[2020-03-22] MEDS: HEPARIN NA (PORCINE) 5,000 UNITS/ML 1ML VIAL SQ SCH ×2 (13:00→22:12)
--- NOTE | 2020-03-22 13:19 | PN ---
Teaching Attending Note Name of Resident: Markus Howard ATTENDING PHYSICIAN STATEMENT I saw and evaluated the patient. I reviewed the resident's note and discussed the case with the resident. I agree with the resident's findings and plan as documented. SUBJECTIVE: Pt seen and examined in the ICU. No further arrhythmias noted. No pressors. Arousable off sedation following commands, placed on CPAP/PS witih good respiratory effort and RSBI so subsequently extubated. OBJECTIVE: Vital Signs Period Temp Pulse Resp BP Sys/Argueta Pulse Ox Last 24 Hr 98 F-98.6 F 66-87 18-22 104-154/59-84 98-100 Intake & Output 03/19/20 03/20/20 03/21/20 03/22/20 23:59 23:59 23:59 23:59 Intake Total 100 3535 652 Output Total 2080 1150 2300 Balance -1979 9865 -1648 Weight 124.284 kg 119.748 kg 119.748 kg Gen: extubated Heart: RRR Lung: decreased breath sounds at the bases Abd: soft, nontender Ext: no edema CBC, BMP 03/22/20 05:45 03/22/20 05:45 Active Medications Chlorhexidine Gluconate (Hibiclens For Decolonization -) 1 applic TP HS SHANEL Heparin Sodium (Porcine) (Heparin -) 5,000 unit SQ TID [facility] Last Admin: 03/22/20 13:00 Dose: 5,000 unit Documented by: Midazolam HCl 100 mg/ Sodium (Chloride) 100 mls @ 1 mls/hr IVPB TITR [facility]; Protocol Last Admin: 03/22/20 04:30 Dose: 1 mg/hr, 1 mls/hr Documented by: Vasopressin 40 units/ Sodium (Chloride) 100 mls @ 5 mls/hr IVPB ASDIR HSANEL; Protocol Last Admin: 03/22/20 04:30 Dose: 2 units/hr, 5 mls/hr Documented by: Fentanyl (Sublimaze Ivpb) 500 mcg in 100 mls @ 23.95 mls/hr IVPB TITR [facility]; Protocol Last Admin: 03/22/20 08:37 Dose: 0.42 mcg/kg/hr, 10 mls/hr Documented by: Ceftriaxone Sodium 1 gm/ (Dextrose) 50 mls @ 100 mls/hr IVPB DAILY [facility] Stop: 03/23/20 09:59 Last Admin: 03/22/20 09:46 Dose: 100 mls/hr Documented by: Azithromycin (Zithromax 500mg Ivpb (Pre-Docked)) 500 mg in 250 mls @ 250 mls/hr IVPB DAILY [facility] Stop: 03/23/20 09:59 Last Admin: 03/22/20 09:46 Dose: 250 mls/hr Documented by: Sodium Bicarbonate 150 meq/ (Dextrose) 1,150 mls @ 140.244 mls/hr IV Q8H [facility] Last Admin: 03/22/20 12:13 Dose: 140.244 mls/hr Documented by: Insulin Aspart (Novolog Vial Sliding Scale -) 1 vial SQ ACHS [facility]; Protocol Last Admin: 03/22/20 12:28 Dose: 10 units Documented by: Mupirocin (Bactroban Ointment (For Decolonization) -) 1 applic NS BID [facility] Stop: 03/27/20 09:59 Last Admin: 03/22/20 10:55 Dose: 1 applic Documented by: Pantoprazole Sodium (Protonix Iv) 40 mg IVPUSH DAILY [facility] Last Admin: 03/22/20 09:46 Dose: 40 mg Documented by: Sodium Bicarbonate (Sodium Bicarbonate -) 1,300 mg PO BID [facility] ASSESSMENT AND PLAN: s/p Cardiopulmonary Arrest Ventricular Fibrillation s/p Defibrillation +Troponins likely Demand Ischemia Acute on Chronic Renal Failure Metabolic Acidosis COPD Chronic Hypoxic Respiratory Failure HTN DM Hyperlipidemia h/o CVA h/o Bladder Ca s/p Cystectomy/Ileoconduit - pt extubated - continue bicarb - monitor lytes - monitor urine output, creatinine - on empiric antibiotics - f/u cultures - O2 to keep SpO2>90% - DVT prophylaxis critical care time spent in reviewing chart, evaluating patient and formulating plan 35 min
--- NOTE | 2020-03-22 15:27 | EKG ---
Test Reason : Blood Pressure : / mmHG Vent. Rate : 067 BPM Atrial Rate : 067 BPM P-R Int : 234 ms QRS Dur : 132 ms QT Int : 440 ms P-R-T Axes : 037 -54 002 degrees QTc Int : 464 ms SINUS RHYTHM WITH 1ST DEGREE A-V BLOCK LEFT AXIS DEVIATION LEFT VENTRICULAR HYPERTROPHY WITH QRS WIDENING ABNORMAL ECG WHEN COMPARED WITH ECG OF 20-MAR-2020 14:45, QRS DURATION HAS INCREASED T WAVE INVERSION NOW EVIDENT IN INFERIOR LEADS T WAVE INVERSION NO LONGER EVIDENT IN LATERAL LEADS Confirmed by GRACE CAMPBELL MD ([id number]) on 03/22/2020 3:26:55 PM Referred By: Confirmed By:GRACE CAMPBELL MD
--- NOTE | 2020-03-22 15:28 | EKG ---
Test Reason : Blood Pressure : / mmHG Vent. Rate : 067 BPM Atrial Rate : 067 BPM P-R Int : 246 ms QRS Dur : 130 ms QT Int : 430 ms P-R-T Axes : 023 -48 -15 degrees QTc Int : 454 ms SINUS RHYTHM WITH 1ST DEGREE A-V BLOCK LEFT AXIS DEVIATION NON-SPECIFIC INTRA-VENTRICULAR CONDUCTION BLOCK CANNOT RULE OUT ANTERIOR INFARCT , AGE UNDETERMINED ABNORMAL ECG WHEN COMPARED WITH ECG OF 20-MAR-2020 14:45, SIGNIFICANT CHANGES HAVE OCCURRED Confirmed by GRACE CAMPBELL MD ([id number]) on 03/22/2020 3:28:17 PM Referred By: Confirmed By:GRACE CAMPBELL MD
--- NOTE | 2020-03-22 19:55 | PN ---
Physical Exam: SUBJECTIVE: Patient seen and examined OBJECTIVE: Vital Signs Period Temp Pulse Resp BP Sys/Argueta Pulse Ox Last 24 Hr 98.1 F-98.6 F 65-100 16-22 104-149/59-90 98-100 GENERAL: The patient is awake, alert, and fully oriented, in no acute distress. HEAD: Normal with no signs of trauma. EYES: PERRL, extraocular movements intact, sclera anicteric, conjunctiva clear. No ptosis. ENT: Ears normal, nares patent, oropharynx clear without exudates, moist mucous membranes. NECK: Trachea midline, full range of motion, supple. LUNGS: Breath sounds equal, clear to auscultation bilaterally, no wheezes, no crackles, no accessory muscle use. HEART: Regular rate and rhythm, S1, S2 without murmur, rub or gallop. ABDOMEN: Soft, nontender, nondistended, normoactive bowel sounds, no guarding, no rebound, no hepatosplenomegaly, no masses. EXTREMITIES: 2+ pulses, warm, well-perfused, no edema. NEUROLOGICAL: Cranial nerves II through XII grossly intact. Normal speech, gait not observed. PSYCH: Normal mood, normal affect. SKIN: Warm, dry, normal turgor, no rashes or lesions noted Laboratory Results - last 24 hr 03/21/20 03/22/20 03/22/20 21:11 02:06 02:45 WBC 5.2 RBC 2.69 L Hgb 7.6 L Hct 25.4 L D MCV 94.4 D MCH 28.4 MCHC 30.1 L RDW 15.2 Plt Count 138 D MPV 8.1 Absolute Neuts (auto) Neutrophils % Lymphocytes % Monocytes % Eosinophils % Basophils % Nucleated RBC % Anticoagulation Therapy Puncture Site Patient Temperature ABG pH ABG pCO2 ABG pO2 ABG HCO3 ABG O2 Sat (Measured) ABG O2 Content ABG Base Excess Ron Test Patient On Oxygen O2 Delivery Device Oxygen Flow Rate Vent Mode Vent Rate Mechanical Rate PEEP Pressure Support Vent Sodium Potassium Chloride Carbon Dioxide Anion Gap BUN Creatinine Est GFR (CKD-EPI)AfAm Est GFR (CKD-EPI)NonAf POC Glucometer 307 Random Glucose Lactic Acid Cancelled Calcium Phosphorus Magnesium Total Bilirubin AST ALT Alkaline Phosphatase Creatine Kinase Troponin I Total Protein Albumin 03/22/20 03/22/20 03/22/20 02:45 02:45 05:45 WBC RBC Hgb Hct MCV MCH MCHC RDW Plt Count MPV Absolute Neuts (auto) Neutrophils % Lymphocytes % Monocytes % Eosinophils % Basophils % Nucleated RBC % Anticoagulation Therapy No Result Required. Puncture Site Right radial Patient Temperature No Result Required. ABG pH 7.254 L ABG pCO2 33.60 L ABG pO2 436.9 H ABG HCO3 14.5 L ABG O2 Sat (Measured) 99.8 H ABG O2 Content No Result Required. ABG Base Excess -11.6 L Ron Test Positive Patient On Oxygen Yes O2 Delivery Device Vent Oxygen Flow Rate 100% Vent Mode A/c Vent Rate 18 Mechanical Rate Yes PEEP 5.0 Pressure Support Vent 450 Sodium Cancelled 138 Potassium Cancelled 3.4 L Chloride Cancelled 107 Carbon Dioxide Cancelled 18 L Anion Gap Cancelled 13 BUN Cancelled 115.9 H* Creatinine Cancelled 3.7 H Est GFR (CKD-EPI)AfAm Cancelled 17.96 Est GFR (CKD-EPI)NonAf Cancelled 15.50 POC Glucometer Random Glucose Cancelled 348 H Lactic Acid Calcium Cancelled 7.9 L Phosphorus Cancelled 4.1 Magnesium Cancelled 3.4 H Total Bilirubin Cancelled 0.3 AST Cancelled 41 H ALT Cancelled 38 Alkaline Phosphatase Cancelled 56 Creatine Kinase 90 Troponin I 0.43 H Total Protein Cancelled 5.9 L Albumin Cancelled 2.8 L 03/22/20 03/22/20 03/22/20 05:45 05:50 10:53 WBC 8.6 RBC 3.61 L Hgb 10.0 L Hct 29.3 L D MCV 81.0 D MCH 27.8 MCHC 34.3 RDW 13.8 Plt Count 194 D MPV 8.4 Absolute Neuts (auto) 7.2 Neutrophils % 83.0 H Lymphocytes % 6.0 L D Monocytes % 8.9 Eosinophils % 1.7 Basophils % 0.4 Nucleated RBC % 1 H Anticoagulation Therapy Cancelled No Result Required. Puncture Site Cancelled Left radial Patient Temperature Cancelled No Result Required. ABG pH Cancelled 7.416 ABG pCO2 Cancelled 28.30 L ABG pO2 Cancelled 180.2 H ABG HCO3 Cancelled 17.8 L ABG O2 Sat (Measured) Cancelled 99.3 H ABG O2 Content Cancelled No Result Required. ABG Base Excess Cancelled -5.7 L Ron Test Cancelled Positive Patient On Oxygen Cancelled Yes O2 Delivery Device Cancelled Vent Oxygen Flow Rate Cancelled 40% Vent Mode Cancelled A/c Vent Rate Cancelled 20 Mechanical Rate Cancelled Yes PEEP Cancelled 5.0 Pressure Support Vent Cancelled 450 Sodium Potassium Chloride Carbon Dioxide Anion Gap BUN Creatinine Est GFR (CKD-EPI)AfAm Est GFR (CKD-EPI)NonAf POC Glucometer Random Glucose Lactic Acid Calcium Phosphorus Magnesium Total Bilirubin AST ALT Alkaline Phosphatase Creatine Kinase Troponin I Total Protein Albumin 03/22/20 03/22/20 03/22/20 12:08 12:26 16:15 WBC RBC Hgb Hct MCV MCH MCHC RDW Plt Count MPV Absolute Neuts (auto) Neutrophils % Lymphocytes % Monocytes % Eosinophils % Basophils % Nucleated RBC % Anticoagulation Therapy Puncture Site Patient Temperature ABG pH ABG pCO2 ABG pO2 ABG HCO3 ABG O2 Sat (Measured) ABG O2 Content ABG Base Excess Ron Test Patient On Oxygen O2 Delivery Device Oxygen Flow Rate Vent Mode Vent Rate Mechanical Rate PEEP Pressure Support Vent Sodium Potassium Chloride Carbon Dioxide Anion Gap BUN Creatinine Est GFR (CKD-EPI)AfAm Est GFR (CKD-EPI)NonAf POC Glucometer 399 Random Glucose Lactic Acid 1.8 Calcium Phosphorus Magnesium Total Bilirubin AST ALT Alkaline Phosphatase Creatine Kinase Troponin I 0.82 H* Total Protein Albumin 03/22/20 17:17 WBC RBC Hgb Hct MCV MCH MCHC RDW Plt Count MPV Absolute Neuts (auto) Neutrophils % Lymphocytes % Monocytes % Eosinophils % Basophils % Nucleated RBC % Anticoagulation Therapy Puncture Site Patient Temperature ABG pH ABG pCO2 ABG pO2 ABG HCO3 ABG O2 Sat (Measured) ABG O2 Content ABG Base Excess Ron Test Patient On Oxygen O2 Delivery Device Oxygen Flow Rate Vent Mode Vent Rate Mechanical Rate PEEP Pressure Support Vent Sodium Potassium Chloride Carbon Dioxide Anion Gap BUN Creatinine Est GFR (CKD-EPI)AfAm Est GFR (CKD-EPI)NonAf POC Glucometer 368 Random Glucose Lactic Acid Calcium Phosphorus Magnesium Total Bilirubin AST ALT Alkaline Phosphatase Creatine Kinase Troponin I Total Protein Albumin Active Medications Generic Name Dose Route Start Last Admin Trade Name Freq PRN Reason Stop Dose Admin Chlorhexidine Gluconate 1 applic 03/22/20 22:00 Hibiclens For Decolonization - TP HS SHANEL Heparin Sodium (Porcine) 5,000 unit 03/22/20 14:00 03/22/20 13:00 Heparin - SQ 5,000 unit TID SHANEL Administration Midazolam HCl 100 mg/ Sodium 100 mls @ 1 mls/hr 03/22/20 03:30 03/22/20 04:30 Chloride IVPB 1 mg/hr TITR SHANEL 1 mls/hr Administration Protocol 1 MG/HR Vasopressin 40 units/ Sodium 100 mls @ 5 mls/hr 03/22/20 03:30 03/22/20 04:30 Chloride IVPB 2 units/hr ASDIR SHANEL 5 mls/hr Administration Protocol 2 UNITS/HR Fentanyl 500 mcg in 100 mls @ 23.95 mls/hr 03/22/20 04:00 03/22/20 08:37 Sublimaze Ivpb IVPB 0.42 mcg/kg/hr TITR SHANEL 10 mls/hr Administration Protocol 1 MCG/KG/HR Ceftriaxone Sodium 1 gm/ 50 mls @ 100 mls/hr 03/22/20 10:00 03/22/20 09:46 Dextrose IVPB 03/23/20 09:59 100 mls/hr DAILY SHANEL Administration Azithromycin 500 mg in 250 mls @ 250 mls/hr 03/22/20 10:00 03/22/20 09:46 Zithromax 500mg Ivpb (Pre-Docked) IVPB 03/23/20 09:59 250 mls/hr DAILY SHANLE Administration Sodium Bicarbonate 150 meq/ 1,150 mls @ 140.244 mls/hr 03/22/20 11:51 03/22/20 12:13 Dextrose IV 140.244 mls/hr Q8H SHANEL Administration Insulin Aspart 1 vial 03/22/20 11:00 03/22/20 17:28 Novolog Vial Sliding Scale - SQ 10 units ACHS SHANEL Administration Protocol Mupirocin 1 applic 03/22/20 10:00 03/22/20 10:55 Bactroban Ointment (For Decolonization) - NS 03/27/20 09:59 1 applic BID SHANEL Administration Pantoprazole Sodium 40 mg 03/22/20 10:00 03/22/20 09:46 Protonix Iv IVPUSH 40 mg DAILY SHANEL Administration Sodium Bicarbonate 1,300 mg 03/22/20 22:00 Sodium Bicarbonate - PO BID SHANEL ASSESSMENT/PLAN: ATTENDING PHYSICIAN STATEMENT I saw and evaluated the patient. I reviewed the resident's note and discussed the case with the resident. I agree with the resident's findings and plan as documented. SUBJECTIVE: OBJECTIVE: ASSESSMENT AND PLAN:
[2020-03-22] MEDS ORDERED: CHLORHEXIDINE GLUCONATE 4% CLEANSER FOR DECOLONIZATION TP SCH (22:00)
[2020-03-22] MEDS: SODIUM BICARBONATE 650 MG TABLET PO SCH (22:12)
[2020-03-23] MEDS: SODIUM BICARBONATE 8.4% - 150 MEQ in DEXTROSE 5%-WATER - 1,000 ML IV SCH (03:27)
[2020-03-23] MEDS: VASOPRESSIN 40 UNITS in SODIUM CHLORIDE 98 ML IVPB SCH (05:42)
[2020-03-23] MEDS: MIDAZOLAM 100 MG in SODIUM CHLORIDE 100 ML IVPB SCH (05:43)
[2020-03-23] MEDS: FENTANYL IVPB 500 MCG/100 ML BAG IVPB SCH (05:44)
[2020-03-23] MEDS: HEPARIN NA (PORCINE) 5,000 UNITS/ML 1ML VIAL SQ SCH ×3 (06:55→21:01)
[2020-03-23] MEDS: INSULIN SLIDING SCALE (NOVOLOG) 1 VIAL SQ SCH ×4 (06:55→21:05)
[2020-03-23 07:24] LABS: HEMATOCRIT 29.9 % (35.4-49); HEMOGLOBIN 10.4 GM/dL (11.7-16.9); MCH 27.9 pg (25.7-33.7); MCHC 34.6 g/dl (32.0-35.9); MEAN CELL VOLUME 80.5 fl (80-96); PLATELET COUNT 195 K/MM3 (134-434); RBC 3.71 M/mm3 (4.00-5.60); RDW 13.9 % (11.9-15.9); WHITE BLOOD COUNT 7.1 K/mm3 (4.0-10.0)
[2020-03-23 07:41] LABS: ALBUMIN 2.8 g/dl (3.4-5.0); BILIRUBIN,TOTAL 0.3 mg/dL (0.2-1); CALCIUM 8.7 mg/dL (8.5-10.1); CREATININE 3.2 mg/dL (0.55-1.3); POTASSIUM 3.2 mmol/L (3.5-5.1)
[2020-03-23 07:48] LABS: BLOOD UREA NITROGEN 90.3 mg/dL (7-18)
[2020-03-23] MEDS ORDERED: SODIUM CHLORIDE 0.45% 1,000 ML IV SCH ×2 (08:30→14:29)
[2020-03-23] MEDS: PANTOPRAZOLE SODIUM 40 MG VIAL IVPUSH SCH (09:15)
[2020-03-23] MEDS: SODIUM BICARBONATE 650 MG TABLET PO SCH ×2 (09:15→21:02)
[2020-03-23] MEDS: KCL 10 MEQ IVPB 10 MEQ/100 ML INFUS.BAG IVPB SCH ×4 (09:15→14:33)
[2020-03-23 09:29] LABS: CREATININE 3.6 mg/dL (0.55-1.3); POTASSIUM 5.6 mmol/L (3.5-5.1)
[2020-03-23 10:09] LABS: BLOOD UREA NITROGEN 105.8 mg/dL (7-18)
--- NOTE | 2020-03-23 11:43 | PN ---
Teaching Attending Note Name of Resident: Asif Shah ATTENDING PHYSICIAN STATEMENT I saw and evaluated the patient. I reviewed the resident's note and discussed the case with the resident. I agree with the resident's findings and plan as documented. SUBJECTIVE: Pt seen and examined in the ICU. No overnight events. No fevers recorded. No significant arrhythmias. OBJECTIVE: Vital Signs Period Temp Pulse Resp BP Sys/Argueta Pulse Ox Last 24 Hr 98.4 F-98.8 F 0-100 16-24 121-161/64-90 99-100 Intake & Output 03/20/20 03/21/20 03/22/20 03/23/20 23:59 23:59 23:59 23:59 Intake Total 100 3535 1201 Output Total 2080 1150 3200 2500 -1979 Weight 119.748 kg 119.748 kg 119.748 kg Gen: NAD at rest Heart: RRR Lung: decreased breath sounds at the bases Abd: soft, nontender Ext: no edema CBC, BMP 03/23/20 06:30 03/23/20 06:30 Active Medications Chlorhexidine Gluconate (Hibiclens For Decolonization -) 1 applic TP HS SHANEL Last Admin: 03/22/20 22:12 Dose: 1 applic Documented by: Heparin Sodium (Porcine) (Heparin -) 5,000 unit SQ TID SHANEL Last Admin: 03/23/20 06:55 Dose: 5,000 unit Documented by: Midazolam HCl 100 mg/ Sodium (Chloride) 100 mls @ 1 mls/hr IVPB TITR SHANEL; Protocol Last Admin: 03/23/20 05:43 Dose: Not Given Documented by: Vasopressin 40 units/ Sodium (Chloride) 100 mls @ 5 mls/hr IVPB ASDIR SHANEL; Protocol Last Admin: 03/23/20 05:42 Dose: Not Given Documented by: Fentanyl (Sublimaze Ivpb) 500 mcg in 100 mls @ 23.95 mls/hr IVPB TITR SHANEL; Protocol Last Admin: 03/23/20 05:44 Dose: Not Given Documented by: Sodium Chloride (1/2 Normal Saline) 1,000 mls @ 75 mls/hr IV ASDIR SHANEL Last Admin: 03/23/20 09:14 Dose: 75 mls/hr Documented by: Potassium Chloride (Potassium Chloride 10 Meq Premix Ivpb -) 10 meq in 100 mls @ 100 mls/hr IVPB Q60M [facility] Stop: 03/23/20 11:44 Last Admin: 03/23/20 11:22 Dose: 100 mls/hr Documented by: Insulin Aspart (Novolog Vial Sliding Scale -) 1 vial SQ ACHS [facility]; Protocol Last Admin: 03/23/20 06:55 Dose: 4 units Documented by: Mupirocin (Bactroban Ointment (For Decolonization) -) 1 applic NS BID [facility] Stop: 03/27/20 09:59 Last Admin: 03/22/20 22:13 Dose: 1 applic Documented by: Pantoprazole Sodium (Protonix Iv) 40 mg IVPUSH DAILY [facility] Last Admin: 03/23/20 09:15 Dose: 40 mg Documented by: Sodium Bicarbonate (Sodium Bicarbonate -) 1,300 mg PO BID [facility] Last Admin: 03/23/20 09:15 Dose: 1,300 mg Documented by: ASSESSMENT AND PLAN: s/p Cardiopulmonary Arrest Ventricular Fibrillation s/p Defibrillation +Troponins likely Demand Ischemia Acute on Chronic Renal Failure Metabolic Acidosis COPD Chronic Hypoxic Respiratory Failure HTN DM Hyperlipidemia h/o CVA h/o Bladder Ca s/p Cystectomy/Ileoconduit - continue bicarb - monitor lytes - monitor urine output, creatinine - O2 to keep SpO2>90% - DVT prophylaxis - can monitor on telemetry
[2020-03-23] MEDS ORDERED: INSULIN (NOVOLOG) ASPART 100 UNITS/ML 10ML VIAL ONE ×3 (11:44→17:15)
[2020-03-23] MEDS ORDERED: POTASSIUM CHLORIDE TABS 20 MEQ TABLET.ER (FP) PO ONE (11:47)
--- NOTE | 2020-03-23 11:57 | PN ---
Progress Note (short form) - Note Progress Note: 69 yo male with pmh of 69 year old male with PMH of HTN, HLD, DM, CVA, MARLON, COPD on home O2, CKD, bladder carcinoma s/p cystectomy with urostomy presented to the ER with SOB and BL leg pain, associated with intermittent chest pain and a dry cough. Pt came to ICU due to cardiac arrest. Pt was extubated yesterday and now is stable to be transferred to telemetry unit where pt will hopefully start dialysis PE: GENERAL: Awake, alert, and fully oriented, in no acute distress HEAD: No signs of trauma, normocephalic, atraumatic EYES: PERRLA, EOMI, sclera anicteric, conjunctiva clear ENT: Auricles normal inspection, hearing grossly normal, nares patent, oropharynx clear without exudates. Moist mucosa NECK: Normal ROM, supple, no lymphadenopathy, JVD, or masses LUNGS: No distress, speaks full sentences, clear to auscultation bilaterally HEART: Regular rate and rhythm, normal S1 and S2, no murmurs, rubs or gallops, peripheral pulses normal and equal bilaterally. ABDOMEN: Soft, nontender, normoactive bowel sounds, cystostomy bag filled with urine . Ext: lower ext edema NEUROLOGICAL: Cranial nerves II through XII grossly intact. SKIN: Warm, Dry, normal turgor, no rashes or lesions noted
--- NOTE | 2020-03-23 12:22 | PN ---
Progress Note (short form) - Note Progress Note: 69yo M with PMHx of HTN, HLD, DM, CVA x2 with residual ataxia, MARLON, COPD on home O2, CKD, bladder carcinoma s/p cystectomy with urostomy who presented with SOB, HOLLY, and bilateral lower leg pain who subsequently suffered from a cardiac arrest (rhythm found to be v-tach possibly 2/2 acidosis) patient is now s/p extubation (since yesterday) not on any pressors no arrythmias noted on tele monitoring. patient states he had been feeling weak for around 2 weeks before finally coming into the hospital; today patient has no complaints states he is feeling well, has some slight dyspnea however improved ; denies any CP/N/V cough or cold symptoms vitals: HR 62 BP 137/66 saturating 100 % on RA gen: NAD; AOX3 Lungs: slight decreased breath sounds at the bases no rales/rhonchi or wheezing Cardio: RRR s1 s2 no MRG Abd: soft; NT ND +BS extremities: 2+ pitting edema b/l ;warm; well-perfused Patient is vitally and hemodynamically stable to be downgraded to telemetry CV: HTN HLD has not required pressors in 24 hours monitor hemodynamics; can restart BP meds if hemodynamics permit DM BGMS ACHS ISS ACHS CKD stage 4 CR 3.2 (downtrending) on bicarb gtt hypokalmia; repleted will repeat BMP nephro on board f/e/n IVF hypokalemia- repleted sodium diet dvt ppx: heparin sq Problem List - Problems (1) Acute on chronic kidney failure Code(s): N17.9 - ACUTE KIDNEY FAILURE, UNSPECIFIED; N18.9 - CHRONIC KIDNEY DISEASE, UNSPECIFIED Qualifiers: Acute renal failure type: unspecified Chronic kidney disease stage: unspecified stage Qualified Code(s): N17.9 - Acute kidney failure, unspecified; N18.9 - Chronic kidney disease, unspecified (2) Shortness of breath Code(s): R06.02 - SHORTNESS OF BREATH (3) Swelling of both lower extremities Code(s): M79.89 - OTHER SPECIFIED SOFT TISSUE DISORDERS (4) ARF (acute renal failure) Code(s): N17.9 - ACUTE KIDNEY FAILURE, UNSPECIFIED Qualifiers: Acute renal failure type: unspecified Qualified Code(s): N17.9 - Acute kidney failure, unspecified
[2020-03-23] MEDS ORDERED: GABAPENTIN 100 MG CAPSULE PO SCH (14:00)
[2020-03-23] MEDS: GABAPENTIN 100 MG CAPSULE PO SCH ×2 (15:55→21:01)
[2020-03-23 18:17] LABS: BLOOD UREA NITROGEN 81.9 mg/dL (7-18); CALCIUM 8.2 mg/dL (8.5-10.1); POTASSIUM 3.6 mmol/L (3.5-5.1)
--- NOTE | 2020-03-23 18:56 | PN ---
Progress Note, Physician Chief Complaint: Leg pain and weakness History of Present Illness: Seen and examined in the ICU awake and alert offers no acute complaints denies any sob, cp, fever, chills, abd pain making urine via cystostomy - Current Medication List Current Medications: Active Medications Atorvastatin Calcium (Lipitor -) 10 mg PO HS SHANEL Gabapentin (Neurontin -) 100 mg PO TID [facility] Last Admin: 03/23/20 15:55 Dose: 100 mg Documented by: Heparin Sodium (Porcine) (Heparin -) 5,000 unit SQ TID SHANEL Sodium Chloride (1/2 Normal Saline) 1,000 mls @ 75 mls/hr IV ASDIR [facility] Last Admin: 03/23/20 15:55 Dose: 75 mls/hr Documented by: Insulin Aspart (Novolog Vial Sliding Scale -) 1 vial SQ ACHS [facility]; Protocol Last Admin: 03/23/20 17:16 Dose: 4 units Documented by: Pantoprazole Sodium (Protonix Iv) 40 mg IVPUSH DAILY [facility] Sodium Bicarbonate (Sodium Bicarbonate -) 1,300 mg PO BID [facility] - Objective Vital Signs: Vital Signs Temperature 98 F 03/23/20 18:00 Pulse Rate 80 03/23/20 18:00 Respiratory Rate 16 03/23/20 18:00 Blood Pressure 98/79 03/23/20 18:00 O2 Sat by Pulse Oximetry (%) 99 03/23/20 08:55 Constitutional: Yes: No Distress, Calm Eyes: Yes: Conjunctiva Clear HENT: Yes: Atraumatic Neck: Yes: Supple Cardiovascular: Yes: Regular Rate and Rhythm Respiratory: Yes: Regular, Diminished. No: Rales, Rhonchi Gastrointestinal: Yes: Soft, Abdomen, Obese. No: Tenderness Extremities: No: Cyanosis Edema: Yes Edema: LLE: Trace, RLE: Trace Neurological: Yes: Alert, Oriented Labs: CBC, BMP 03/23/20 06:30 03/23/20 17:32 INR, PTT INR 0.97 (0.83-1.09) 03/19/20 19:00 Assessment/Plan 69 year old gentleman with pmhx of htn, ckd, hld, lana, cva, dm, copd, bladder cancer s/p cystectomy who presents with fatigue, weakness and progressive lower ext pain. 1. Acute kidney injury on CKD 2. CKD stage 4 3. Metabolic acidosis from renal failure +Ileal conduit 4. Hyperkalemia 5. Anemia in CKD 6. Hypertension 7. Dyspnea w/o evidence of PNA/CHF 8. V-fib arrest Acidosis now significantly improved, discontinue bicarb gtt. Start 1/2 NS for continued volume repletion. Continue oral sodium bicarb daily. There is no acute indication for renal replacement therapy. Renal function now near baseline, BUN remains elevated. Baseline Cr ~3 (last was 3.1 in early February) No МАРИНА/ARB give low eGFR Follow up blood culture to r/o occult infection Started amlodipine 5mg daily. Trend renal function and electrolytes daily Thank you Freddie Forbes DO
[2020-03-23] MEDS: MUPIROCIN 2% TOPICAL OINTMENT FOR DECOLONIZATION NS SCH (20:08)
[2020-03-23] MEDS: amLODIPine BESYLATE 5 MG TABLET (FP) PO SCH (21:01)
[2020-03-23] MEDS: ATORVASTATIN CA 10 MG TABLET (FP) PO SCH (21:01)
[2020-03-24] MEDS: GABAPENTIN 100 MG CAPSULE PO SCH ×3 (06:04→21:14)
[2020-03-24] MEDS: HEPARIN NA (PORCINE) 5,000 UNITS/ML 1ML VIAL SQ SCH ×3 (06:04→21:13)
[2020-03-24] MEDS: INSULIN SLIDING SCALE (NOVOLOG) 1 VIAL SQ SCH ×4 (06:27→21:27)
[2020-03-24 07:04] LABS: HEMATOCRIT 28.7 % (35.4-49); MCH 28.7 pg (25.7-33.7); MCHC 34.9 g/dl (32.0-35.9); MEAN CELL VOLUME 82.2 fl (80-96); MEAN PLT VOLUME 8.9 fl (7.5-11.1); PLATELET COUNT 185 K/MM3 (134-434); RBC 3.49 M/mm3 (4.00-5.60); RDW 14.1 % (11.9-15.9); WHITE BLOOD COUNT 9.7 K/mm3 (4.0-10.0)
[2020-03-24 07:28] LABS: ALBUMIN 2.7 g/dl (3.4-5.0); BILIRUBIN,TOTAL 0.6 mg/dL (0.2-1); CALCIUM 8.3 mg/dL (8.5-10.1); CREATININE 2.7 mg/dL (0.55-1.3); MAGNESIUM 2.4 mg/dL (1.8-2.4); PHOSPHOROUS 2.3 mg/dL (2.5-4.9); POTASSIUM 3.6 mmol/L (3.5-5.1)
[2020-03-24] MEDS: PANTOPRAZOLE SODIUM 40 MG VIAL IVPUSH SCH (10:11)
[2020-03-24] MEDS: SODIUM BICARBONATE 650 MG TABLET PO SCH ×3 (10:11→21:13)
[2020-03-24] MEDS: amLODIPine BESYLATE 5 MG TABLET (FP) PO SCH (10:11)
--- NOTE | 2020-03-24 11:10 | PN ---
Progress Note, Physician Chief Complaint: Leg pain and weakness History of Present Illness: Seen and examined in the ICU awake and alert offers no acute complaints denies any sob, cp, fever, chills, abd pain making urine via cystostomy - Current Medication List Current Medications: Active Medications Amlodipine Besylate (Norvasc -) 5 mg PO DAILY [facility] Last Admin: 03/24/20 10:11 Dose: 5 mg Documented by: Atorvastatin Calcium (Lipitor -) 10 mg PO HS [facility] Last Admin: 03/23/20 21:01 Dose: 10 mg Documented by: Gabapentin (Neurontin -) 100 mg PO TID [facility] Last Admin: 03/24/20 06:04 Dose: 100 mg Documented by: Heparin Sodium (Porcine) (Heparin -) 5,000 unit SQ TID [facility] Last Admin: 03/24/20 06:04 Dose: 5,000 unit Documented by: Sodium Chloride (1/2 Normal Saline) 1,000 mls @ 75 mls/hr IV ASDIR [facility] Last Admin: 03/23/20 15:55 Dose: 75 mls/hr Documented by: Insulin Aspart (Novolog Vial Sliding Scale -) 1 vial SQ [facility]; Protocol Last Admin: 03/24/20 06:27 Dose: 2 units Documented by: Pantoprazole Sodium (Protonix Iv) 40 mg IVPUSH DAILY [facility] Last Admin: 03/24/20 10:11 Dose: 40 mg Documented by: Sodium Bicarbonate (Sodium Bicarbonate -) 1,300 mg PO BID [facility] Last Admin: 03/24/20 10:11 Dose: 1,300 mg Documented by: - Objective Vital Signs: Vital Signs Temperature 98.2 F 03/24/20 06:00 Pulse Rate 68 03/24/20 06:00 Respiratory Rate 14 03/24/20 06:00 Blood Pressure 160/84 03/24/20 06:00 O2 Sat by Pulse Oximetry (%) 100 03/24/20 09:00 Constitutional: Yes: No Distress, Calm Neck: Yes: Supple Cardiovascular: Yes: Regular Rate and Rhythm Respiratory: Yes: Regular Gastrointestinal: Yes: Soft Extremities: No: Cyanosis Edema: Yes Edema: LLE: Trace, RLE: Trace Neurological: Yes: Alert, Oriented Labs: CBC, BMP 03/24/20 05:45 03/24/20 05:45 INR, PTT INR 0.97 (0.83-1.09) 03/19/20 19:00 Assessment/Plan 69 year old gentleman with pmhx of htn, ckd, hld, lana, cva, dm, copd, bladder cancer s/p cystectomy who presents with fatigue, weakness and progressive lower ext pain. 1. Acute kidney injury on CKD 2. CKD stage 4 3. Metabolic acidosis from renal failure +Ileal conduit 4. Hyperkalemia 5. Anemia in CKD 6. Hypertension 7. Dyspnea w/o evidence of PNA/CHF 8. V-fib arrest Acidosis is now resolved. D/C IVF Continue oral sodium bicarb TID There is no acute indication for renal replacement therapy. Renal function now near baseline, BUN remains elevated. Baseline Cr ~3 (last was 3.1 in early February) No МАРИНА/ARB give low eGFR Follow up blood culture to r/o occult infection Started amlodipine 5mg daily, titrate to goal of 130/80 Trend renal function and electrolytes daily Thank you Freddie Forbes DO
[2020-03-24] MEDS ORDERED: PT OWN MED DRAWER 7, Y5N ONE ×2 (11:38→21:05)
--- NOTE | 2020-03-24 15:14 | PN ---
Teaching Attending Note Name of Resident: Lissette Joel ATTENDING PHYSICIAN STATEMENT I saw and evaluated the patient. I reviewed the resident's note and discussed the case with the resident. I agree with the resident's findings and plan as documented. SUBJECTIVE: Feeling better no arrhythmia no chest pain no shortness of breath. Seen by nephrology today. OBJECTIVE: Vital Signs Period Temp Pulse Resp BP Sys/Argueta Pulse Ox Last 24 Hr 98 F-99 F 68-80 14-16 98-179/55-93 99-100 Patient is comfortable HEENT normal Neck supple no JVD Lungs clear no wheezing Abdomen nontender no organomegaly bowel sounds normal Extremities no edema no cyanosis normal pulses Neurologically he is alert awake oriented, nonfocal Skin no rash noted ASSESSMENT AND PLAN: 69M with PMH of HTN, HLD, DM, CVA, MARLON, COPD on home O2, CKD, bladder carcinoma s/p cystectomy with urostomy presented to the ER with SOB and BL leg pain, found to have MEKA on CKD pt refused HD and was being managed with IVF and Bicarb drip. Today he is improved denies any chest pain shortness of breath His acidosis has been resolved his vital signs are stable discussed with channel rougher he is not a candidate for hemodialysis at this time. Continue current medication transferred to telemetry out of ICU. His blood pressure is stable.
--- NOTE | 2020-03-24 15:38 | PN ---
Physical Exam: SUBJECTIVE: Patient seen and examined. Accepted to telemetry from ICU. OBJECTIVE: Vital Signs Period Temp Pulse Resp BP Sys/Argueta Pulse Ox Last 24 Hr 98 F-99 F 68-80 14-16 98-179/55-93 99-100 GENERAL: The patient is awake, alert, and fully oriented, in no acute distress. HEENT: NCAT EOMI PERRLA LUNGS: Breath sounds equal, clear to auscultation bilaterally, no wheezes, no crackles, no accessory muscle use. HEART: Regular rate and rhythm, S1, S2 without murmur, rub or gallop. ABDOMEN: Obese. Soft, nontender, nondistended, normoactive bowel sounds, no guarding EXTREMITIES: 2+ pulses, warm, well-perfused, 1+ b/l LE pitting edema NEUROLOGICAL: Cranial nerves II through XII grossly intact. PSYCH: Normal mood, normal affect. SKIN: no rashes or lesions noted Laboratory Results - last 24 hr 03/23/20 03/23/20 03/23/20 17:10 17:32 21:01 WBC RBC Hgb Hct MCV MCH MCHC RDW Plt Count MPV Sodium 142 Potassium 3.6 Chloride 108 H Carbon Dioxide 27 Anion Gap 6 L BUN 81.9 H Creatinine 3.0 H Est GFR (CKD-EPI)AfAm 23.15 Est GFR (CKD-EPI)NonAf 19.97 POC Glucometer 246 268 Random Glucose 228 H Calcium 8.2 L Phosphorus Magnesium Total Bilirubin AST ALT Alkaline Phosphatase Total Protein Albumin 03/24/20 03/24/20 03/24/20 05:45 05:45 06:24 WBC 9.7 RBC 3.49 L Hgb 10.0 L Hct 28.7 L MCV 82.2 MCH 28.7 MCHC 34.9 RDW 14.1 Plt Count 185 MPV 8.9 D Sodium 142 Potassium 3.6 Chloride 110 H Carbon Dioxide 23 Anion Gap 8 BUN 69.0 H Creatinine 2.7 H Est GFR (CKD-EPI)AfAm 26.29 Est GFR (CKD-EPI)NonAf 22.69 POC Glucometer 164 Random Glucose 197 H Calcium 8.3 L Phosphorus 2.3 L Magnesium 2.4 Total Bilirubin 0.6 AST 24 ALT 30 Alkaline Phosphatase 56 Total Protein 6.0 L Albumin 2.7 L 03/24/20 11:30 WBC RBC Hgb Hct MCV MCH MCHC RDW Plt Count MPV Sodium Potassium Chloride Carbon Dioxide Anion Gap BUN Creatinine Est GFR (CKD-EPI)AfAm Est GFR (CKD-EPI)NonAf POC Glucometer 254 Random Glucose Calcium Phosphorus Magnesium Total Bilirubin AST ALT Alkaline Phosphatase Total Protein Albumin Active Medications Generic Name Dose Route Start Last Admin Trade Name Freq PRN Reason Stop Dose Admin Amlodipine Besylate 5 mg 03/23/20 19:00 03/24/20 10:11 Norvasc - PO 5 mg DAILY SHANEL Administration Atorvastatin Calcium 10 mg 03/23/20 22:00 03/23/20 21:01 Lipitor - PO 10 mg HS SHANEL Administration Gabapentin 100 mg 03/23/20 14:00 03/24/20 06:04 Neurontin - PO 100 mg TID SHANEL Administration Heparin Sodium (Porcine) 5,000 unit 03/23/20 22:00 03/24/20 06:04 Heparin - SQ 5,000 unit TID SHANEL Administration Insulin Aspart 1 vial 03/23/20 16:30 03/24/20 11:44 Novolog Vial Sliding Scale - SQ 6 units ACHS SHANEL Administration Protocol Pantoprazole Sodium 40 mg 03/24/20 10:00 03/24/20 10:11 Protonix Iv IVPUSH 40 mg DAILY SHANEL Administration Sodium Bicarbonate 1,300 mg 03/24/20 14:00 Sodium Bicarbonate - PO TID SHANEL ASSESSMENT/PLAN: 69 y.o .M PMH HTN, HLD, DM, CVA x2 with residual ataxia, MARLON, COPD on home O2, CKD, bladder carcinoma s/p cystectomy with urostomy who presents with SOB, HOLLY, and bilateral lower leg pain. Admitted for acute renal failure and worsening metabolic acidosis, now resolving. Patient is s/p cardiac arrest, shockable rhythm (vfib) & defibrillation on 03/22 w/ ROSC. #Acute metabolic acidosis #MEKA on CKD (stage 4) -acidosis resolving -bicard gtt d/c'd, continue oral NaHco3 therapy (TID) -trend daily renal labs; baseline Cr ~3 (2.7 today) -No indication for TECHNICAL ASSISTANCE CONSULTANT at this time as per renal -avoid nephrotoxic agents -Dr. Forbes (renal) following #Cardiac arrest -03/22/20- found to be in V-fib, s/p defibrillation with ROSC achieved -pt was intubated 03/22, now extubated -previously requiring pressor support however currently off all pressors -cont monitor on telemetry -vital signs have been stable #UTI -s/p 3 days IV rocephin -no complaints of dysuria/ hematuria -observe off abx #LE edema -b/l LE US showing no evidence of DVT -resolving -echo showing no signs of heart failure #COPD -continue home Symbicort and Duoneb #HTN Started amlodipine 5mg daily, titrate to goal of 130/80 #DM -hold home oral meds -ACHS BGM ISS #PPX -DVT: heparin sq #FEN -no standing fluids -hyperkalemia resolved -sodium restricted/diabetic diet #Dispo: cont to monitor on telemetry Visit type - Emergency Visit Emergency Visit: No - New Patient This patient is new to me today: No - Critical Care Critical Care patient: No - Medication Review Med list reviewed for High Risk Meds patients 65 and older: Yes ATTENDING PHYSICIAN STATEMENT I saw and evaluated the patient. I reviewed the resident's note and discussed the case with the resident. I agree with the resident's findings and plan as documented. SUBJECTIVE: OBJECTIVE: ASSESSMENT AND PLAN:
[2020-03-24] MEDS: ATORVASTATIN CA 10 MG TABLET (FP) PO SCH (21:14)
[2020-03-24] MEDS: ACETAMINOPHEN 325 MG TABLET (FP) PO PRN (21:17)
[2020-03-25] MEDS: GABAPENTIN 100 MG CAPSULE PO SCH ×3 (05:30→21:17)
[2020-03-25] MEDS: HEPARIN NA (PORCINE) 5,000 UNITS/ML 1ML VIAL SQ SCH ×3 (05:30→21:16)
[2020-03-25] MEDS: SODIUM BICARBONATE 650 MG TABLET PO SCH ×3 (05:31→21:16)
[2020-03-25] MEDS: INSULIN SLIDING SCALE (NOVOLOG) 1 VIAL SQ SCH ×4 (06:15→21:21)
[2020-03-25 09:55] LABS: HEMATOCRIT 32.1 % (35.4-49); HEMOGLOBIN 10.9 GM/dL (11.7-16.9); MEAN CELL VOLUME 82.3 fl (80-96); MEAN PLT VOLUME 7.9 fl (7.5-11.1); PLATELET COUNT 184 K/MM3 (134-434); RBC 3.89 M/mm3 (4.00-5.60); RDW 14.2 % (11.9-15.9); WHITE BLOOD COUNT 8.4 K/mm3 (4.0-10.0)
--- NOTE | 2020-03-25 10:25 | PN ---
Progress Note, Physician Chief Complaint: Leg pain and weakness History of Present Illness: Seen and examined in the ICU awake and alert offers no acute complaints denies any sob, cp, fever, chills, abd pain making urine via cystostomy - Current Medication List Current Medications: Active Medications Acetaminophen (Tylenol -) 650 mg PO Q4H PRN PRN Reason: PAIN Last Admin: 03/24/20 21:17 Dose: 650 mg Documented by: Amlodipine Besylate (Norvasc -) 10 mg PO DAILY [facility] Atorvastatin Calcium (Lipitor -) 10 mg PO HS [facility] Last Admin: 03/24/20 21:14 Dose: 10 mg Documented by: Gabapentin (Neurontin -) 100 mg PO TID [facility] Last Admin: 03/25/20 05:30 Dose: 100 mg Documented by: Heparin Sodium (Porcine) (Heparin -) 5,000 unit SQ TID [facility] Last Admin: 03/25/20 05:30 Dose: 5,000 unit Documented by: Insulin Aspart (Novolog Vial Sliding Scale -) 1 vial SQ [facility]; Protocol Last Admin: 03/25/20 06:15 Dose: 2 units Documented by: Pantoprazole Sodium (Protonix Iv) 40 mg IVPUSH DAILY [facility] Last Admin: 03/24/20 10:11 Dose: 40 mg Documented by: Sodium Bicarbonate (Sodium Bicarbonate -) 1,300 mg PO TID [facility] Last Admin: 03/25/20 05:31 Dose: 1,300 mg Documented by: - Objective Vital Signs: Vital Signs Temperature 98.8 F 03/25/20 05:13 Pulse Rate 72 03/25/20 05:13 Respiratory Rate 18 03/25/20 05:13 Blood Pressure 150/86 03/25/20 05:13 O2 Sat by Pulse Oximetry (%) 99 03/25/20 05:13 Constitutional: Yes: No Distress HENT: Yes: Atraumatic Neck: Yes: Supple Cardiovascular: Yes: Regular Rate and Rhythm Respiratory: Yes: Regular Gastrointestinal: Yes: Soft. No: Tenderness Edema: Yes Labs: CBC, BMP 03/25/20 09:42 INR, PTT INR 0.97 (0.83-1.09) 03/19/20 19:00 Assessment/Plan 69 year old gentleman with pmhx of htn, ckd, hld, lana, cva, dm, copd, bladder cancer s/p cystectomy who presents with fatigue, weakness and progressive lower ext pain. 1. Acute kidney injury on CKD 2. CKD stage 4 3. Metabolic acidosis from renal failure +Ileal conduit 4. Hyperkalemia 5. Anemia in CKD 6. Hypertension 7. Dyspnea w/o evidence of PNA/CHF 8. V-fib arrest Todays BMP pending Clinically stable. Continue oral sodium bicarb TID There is no acute indication for renal replacement therapy. Renal function now near baseline, BUN remains elevated. Baseline Cr ~3 (last was 3.1 in early February) No МАРИНА/ARB give low eGFR Follow up blood culture to r/o occult infection Increased amlodipine to 10mg daily Trend renal function and electrolytes daily Thank you Freddie Forbes DO
[2020-03-25 10:37] LABS: ALBUMIN 2.8 g/dl (3.4-5.0); BILIRUBIN,TOTAL 0.5 mg/dL (0.2-1); BLOOD UREA NITROGEN 53.5 mg/dL (7-18); CALCIUM 8.9 mg/dL (8.5-10.1); CREATININE 2.5 mg/dL (0.55-1.3); MAGNESIUM 2.1 mg/dL (1.8-2.4); PHOSPHOROUS 1.8 mg/dL (2.5-4.9); POTASSIUM 3.7 mmol/L (3.5-5.1); TOT PROT 6.6 g/dl (6.4-8.2)
[2020-03-25] MEDS: amLODIPine BESYLATE 5 MG TABLET (FP) PO SCH (10:46)
[2020-03-25] MEDS: PANTOPRAZOLE SODIUM 40 MG VIAL IVPUSH SCH (10:46)
--- NOTE | 2020-03-25 12:36 | PN ---
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 OBJECTIVE: Vital Signs Period Temp Pulse Resp BP Sys/Argueta Pulse Ox Last 24 Hr 98 F-98.8 F 66-82 17-18 150-167/77-94 96-100 Patient is comfortable HEENT normal Neck supple no JVD Lungs clear no wheezing Abdomen nontender no organomegaly bowel sounds normal Extremities no edema no cyanosis normal pulses Neurologically he is alert awake oriented, nonfocal Skin no rash noted Heart examination normal Laboratory Results - last 24 hr 03/24/20 03/24/20 03/25/20 17:15 21:25 05:43 WBC RBC Hgb Hct MCV MCH MCHC RDW Plt Count MPV Sodium Potassium Chloride Carbon Dioxide Anion Gap BUN Creatinine Est GFR (CKD-EPI)AfAm Est GFR (CKD-EPI)NonAf POC Glucometer 247 241 182 Random Glucose Calcium Phosphorus Magnesium Total Bilirubin AST ALT Alkaline Phosphatase Total Protein Albumin 03/25/20 03/25/20 09:42 09:42 WBC 8.4 RBC 3.89 L Hgb 10.9 L Hct 32.1 L MCV 82.3 MCH 28.0 MCHC 34.0 RDW 14.2 Plt Count 184 MPV 7.9 D Sodium 137 Potassium 3.7 Chloride 105 Carbon Dioxide 22 Anion Gap 10 BUN 53.5 H Creatinine 2.5 H Est GFR (CKD-EPI)AfAm 28.86 Est GFR (CKD-EPI)NonAf 24.90 POC Glucometer Random Glucose 272 H Calcium 8.9 Phosphorus 1.8 L Magnesium 2.1 Total Bilirubin 0.5 AST 23 ALT 33 Alkaline Phosphatase 60 Total Protein 6.6 Albumin 2.8 L Active Medications Generic Name Dose Route Start Last Admin Trade Name Freq PRN Reason Stop Dose Admin Acetaminophen 650 mg 03/24/20 20:53 03/24/20 21:17 Tylenol - PO 650 mg Q4H PRN Administration PAIN Amlodipine Besylate 10 mg 03/25/20 10:04 Norvasc - PO DAILY SHANEL Atorvastatin Calcium 10 mg 03/23/20 22:00 03/24/20 21:14 Lipitor - PO 10 mg HS SHANEL Administration Gabapentin 100 mg 03/23/20 14:00 03/25/20 05:30 Neurontin - PO 100 mg TID SHANEL Administration Heparin Sodium (Porcine) 5,000 unit 03/23/20 22:00 03/25/20 05:30 Heparin - SQ 5,000 unit TID SHANEL Administration Insulin Aspart 1 vial 03/23/20 16:30 03/25/20 06:15 Novolog Vial Sliding Scale - SQ 2 units ACHS SHANEL Administration Protocol Pantoprazole Sodium 40 mg 03/24/20 10:00 03/25/20 10:46 Protonix Iv IVPUSH 40 mg DAILY SHANEL Administration Sodium Bicarbonate 1,300 mg 03/24/20 14:00 03/25/20 05:31 Sodium Bicarbonate - PO 1,300 mg TID SHANEL Administration ASSESSMENT/PLAN: 69 y.o .M PMH HTN, HLD, DM, CVA x2 with residual ataxia, MARLON, COPD on home O2, CKD, bladder carcinoma s/p cystectomy with urostomy who presents with SOB, HOLLY, and bilateral lower leg pain. Admitted for acute renal failure and worsening metabolic acidosis, now resolving. Patient is s/p cardiac arrest, shockable rhythm (vfib) & defibrillation on 03/22 w/ ROSC. #Acute metabolic acidosis #MEKA on CKD (stage 4) It is resolved now his BUN/creatinine is come to the baseline seen by coper hand today #Cardiac arrest He is stable no arrhythmia will continue to follow on telemetry. #COPD -continue home Symbicort and Duoneb #HTN Increase amlodipine to 10 mg a day #DM -hold home oral meds -ACHS BGM ISS #PPX -DVT: heparin sq #FEN -no standing fluids -hyperkalemia resolved -sodium restricted/diabetic diet #Dispo: cont to monitor on telemetry Ordered physical therapy Visit type - Emergency Visit Emergency Visit: Yes ED Registration Date: 03/19/20 Care time: The patient presented to the Emergency Department on the above date and was hospitalized for further evaluation of their emergent condition. - New Patient This patient is new to me today: No - Critical Care Critical Care patient: No - Discharge Referral Referred to [facility] Med [facility].C[facility] No - Medication Review Med list reviewed for High Risk Meds patients 65 and older: Yes
[2020-03-25] MEDS ORDERED: INSULIN (NOVOLOG) ASPART 100 UNITS/ML 10ML VIAL ONE (14:52)
[2020-03-25] MEDS: ATORVASTATIN CA 10 MG TABLET (FP) PO SCH (21:16)
[2020-03-25] MEDS: ACETAMINOPHEN 325 MG TABLET (FP) PO PRN (21:18)
[2020-03-26] MEDS: GABAPENTIN 100 MG CAPSULE PO SCH ×3 (05:46→22:05)
[2020-03-26] MEDS: HEPARIN NA (PORCINE) 5,000 UNITS/ML 1ML VIAL SQ SCH ×3 (05:46→22:04)
[2020-03-26] MEDS: SODIUM BICARBONATE 650 MG TABLET PO SCH ×3 (05:46→22:06)
[2020-03-26] MEDS: INSULIN SLIDING SCALE (NOVOLOG) 1 VIAL SQ SCH ×4 (06:02→22:06)
[2020-03-26] MEDS: ACETAMINOPHEN 325 MG TABLET (FP) PO PRN (06:03)
[2020-03-26 07:00] LABS: HEMATOCRIT 30.2 % (35.4-49); HEMOGLOBIN 10.4 GM/dL (11.7-16.9); MCHC 34.3 g/dl (32.0-35.9); MEAN CELL VOLUME 81.5 fl (80-96); MEAN PLT VOLUME 8.4 fl (7.5-11.1); PLATELET COUNT 195 K/MM3 (134-434); RDW 14.2 % (11.9-15.9); WHITE BLOOD COUNT 7.5 K/mm3 (4.0-10.0)
[2020-03-26 07:28] LABS: ALBUMIN 2.7 g/dl (3.4-5.0); BILIRUBIN,TOTAL 0.3 mg/dL (0.2-1); BLOOD UREA NITROGEN 52.8 mg/dL (7-18); CALCIUM 8.7 mg/dL (8.5-10.1); CREATININE 2.5 mg/dL (0.55-1.3); PHOSPHOROUS 2.4 mg/dL (2.5-4.9); POTASSIUM 3.9 mmol/L (3.5-5.1); TOT PROT 6.2 g/dl (6.4-8.2)
--- NOTE | 2020-03-26 09:41 | PN ---
Physical Exam: SUBJECTIVE: Patient seen and examined at bedside no acute events overnight patient states he is feeling well; however he has not had PT since thursday and is anxious to get out of the bed; he has been moving his bowels well; he deneis any CP/SOB/N/V ; his only complaint is mild throat pain that hes had since extubation OBJECTIVE: Vital Signs Period Temp Pulse Resp BP Sys/Argueta Pulse Ox Last 24 Hr 98.0 F-98.8 F 61-119 14-24 116-164/61-94 95-100 GENERAL: The patient is awake, alert, and fully oriented, in no acute distress. EYES: PEERLA; EOMI; no sclerla icterus NECK: noJVD; no lymphadenoapthy LUNGS:CTA B/L no rales, rhonchi or wheezing HEART: RRR, S1, S2 without murmur, rub or gallop. ABDOMEN: Soft, NT ND +BS in all 4 quaderants EXTREMITIES: 2+ pulses, warm, well-perfused, trace edema. PSYCH: Normal mood, normal affect. SKIN: Warm, dry, normal turgor, no rashes or lesions noted Laboratory Results - last 24 hr 03/25/20 03/25/20 03/25/20 09:42 09:42 14:21 WBC 8.4 RBC 3.89 L Hgb 10.9 L Hct 32.1 L MCV 82.3 MCH 28.0 MCHC 34.0 RDW 14.2 Plt Count 184 MPV 7.9 D Sodium 137 Potassium 3.7 Chloride 105 Carbon Dioxide 22 Anion Gap 10 BUN 53.5 H Creatinine 2.5 H Est GFR (CKD-EPI)AfAm 28.86 Est GFR (CKD-EPI)NonAf 24.90 POC Glucometer 318 Random Glucose 272 H Calcium 8.9 Phosphorus 1.8 L Magnesium 2.1 Total Bilirubin 0.5 AST 23 ALT 33 Alkaline Phosphatase 60 Total Protein 6.6 Albumin 2.8 L 03/25/20 03/25/20 03/26/20 17:33 21:13 05:43 WBC 7.5 RBC 3.70 L Hgb 10.4 L Hct 30.2 L MCV 81.5 MCH 28.0 MCHC 34.3 RDW 14.2 Plt Count 195 MPV 8.4 Sodium Potassium Chloride Carbon Dioxide Anion Gap BUN Creatinine Est GFR (CKD-EPI)AfAm Est GFR (CKD-EPI)NonAf POC Glucometer 253 239 Random Glucose Calcium Phosphorus Magnesium Total Bilirubin AST ALT Alkaline Phosphatase Total Protein Albumin 03/26/20 03/26/20 05:43 05:51 WBC RBC Hgb Hct MCV MCH MCHC RDW Plt Count MPV Sodium 138 Potassium 3.9 Chloride 107 Carbon Dioxide 21 Anion Gap 10 BUN 52.8 H Creatinine 2.5 H Est GFR (CKD-EPI)AfAm 28.86 Est GFR (CKD-EPI)NonAf 24.90 POC Glucometer 187 Random Glucose 181 H Calcium 8.7 Phosphorus 2.4 L Magnesium Total Bilirubin 0.3 AST 31 ALT 37 Alkaline Phosphatase 55 Total Protein 6.2 L Albumin 2.7 L Active Medications Generic Name Dose Route Start Last Admin Trade Name Freq PRN Reason Stop Dose Admin Acetaminophen 650 mg 03/24/20 20:53 03/26/20 06:03 Tylenol - PO 650 mg Q4H PRN Administration PAIN Amlodipine Besylate 10 mg 03/25/20 10:04 Norvasc - PO DAILY SHANEL Atorvastatin Calcium 10 mg 03/23/20 22:00 03/25/20 21:16 Lipitor - PO 10 mg HS SHANEL Administration Gabapentin 100 mg 03/23/20 14:00 03/26/20 05:46 Neurontin - PO 100 mg TID SHANEL Administration Heparin Sodium (Porcine) 5,000 unit 03/23/20 22:00 03/26/20 05:46 Heparin - SQ 5,000 unit TID SHANEL Administration Insulin Aspart 1 vial 03/23/20 16:30 03/26/20 06:02 Novolog Vial Sliding Scale - SQ 2 units ACHS SHANEL Administration Protocol Pantoprazole Sodium 40 mg 03/24/20 10:00 03/25/20 10:46 Protonix Iv IVPUSH 40 mg DAILY SHANEL Administration Potassium Phos/Sodium Phos 1 packet 03/26/20 10:00 Phos-Nak Packet - PO 03/26/20 22:01 BID SHANEL Sodium Bicarbonate 1,300 mg 03/24/20 14:00 03/26/20 05:46 Sodium Bicarbonate - PO 1,300 mg TID SHANEL Administration ASSESSMENT/PLAN: 69 y.o .M PMH HTN, HLD, DM, CVA x2 with residual ataxia, MARLON, COPD on home O2, CKD, bladder carcinoma s/p cystectomy with urostomy who presents with SOB, HOLLY, and bilateral lower leg pain. Admitted for acute renal failure and worsening metabolic acidosis, now resolving. Patient is s/p cardiac arrest, shockable rhythm (vfib) & defibrillation on 03/22 w/ ROSC. #Acute metabolic acidosis #MEKA on CKD (stage 4) -acidosis resolving -bicard gtt d/c'd, continue oral NaHco3 therapy (TID) -trend daily renal labs; baseline Cr ~3 (2.5 today) -No indication for CIRCULATION MANAGER at this time as per renal -avoid nephrotoxic agents -Dr. Forbes (renal) following #Cardiac arrest -03/22/20- found to be in V-fib, s/p defibrillation with ROSC achieved -pt was intubated 03/22, now extubated -previously requiring pressor support however currently off all pressors -cont monitor on telemetry -vital signs have been stable #UTI -completed IV receophin -no complaints of dysuria/ hematuria -observe off abx #LE edema -b/l LE US showing no evidence of DVT -resolving -echo showing no signs of heart failure #COPD -continue home Symbicort and Duoneb #HTN Started amlodipine 5mg daily, titrate to goal of 130/80 #DM -hold home oral meds -ACHS BGM ISS #PPX -DVT: heparin sq #FEN -no standing fluids -hyperkalemia resolved -sodium restricted/diabetic diet dispo: pending reheab placement Problem List - Problems (1) Acute on chronic kidney failure Code(s): N17.9 - ACUTE KIDNEY FAILURE, UNSPECIFIED; N18.9 - CHRONIC KIDNEY DISEASE, UNSPECIFIED Qualifiers: Acute renal failure type: unspecified Chronic kidney disease stage: unspecified stage Qualified Code(s): N17.9 - Acute kidney failure, unspecified; N18.9 - Chronic kidney disease, unspecified (2) Shortness of breath Code(s): R06.02 - SHORTNESS OF BREATH (3) Swelling of both lower extremities Code(s): M79.89 - OTHER SPECIFIED SOFT TISSUE DISORDERS (4) ARF (acute renal failure) Code(s): N17.9 - ACUTE KIDNEY FAILURE, UNSPECIFIED Qualifiers: Acute renal failure type: unspecified Qualified Code(s): N17.9 - Acute kidney failure, unspecified Visit type - Emergency Visit Emergency Visit: Yes ED Registration Date: 03/19/20 Care time: The patient presented to the Emergency Department on the above date and was hospitalized for further evaluation of their emergent condition. - New Patient This patient is new to me today: Yes Date on this admission: 03/26/20 - Critical Care Critical Care patient: No - Medication Review Med list reviewed for High Risk Meds patients 65 and older: Yes ATTENDING PHYSICIAN STATEMENT I saw and evaluated the patient. I reviewed the resident's note and discussed the case with the resident. I agree with the resident's findings and plan as documented. SUBJECTIVE: OBJECTIVE: ASSESSMENT AND PLAN:
[2020-03-26] MEDS: amLODIPine BESYLATE 10 MG TABLET (FP) PO SCH (10:40)
[2020-03-26] MEDS: NAPH,MB-DB/K PH,MBDB POWDER PACKET PO SCH ×2 (10:40→22:06)
[2020-03-26] MEDS: PANTOPRAZOLE SODIUM 40 MG VIAL IVPUSH SCH (10:40)
--- NOTE | 2020-03-26 11:23 | PN ---
Progress Note, Physician Chief Complaint: Leg pain and weakness History of Present Illness: Seen and examined in the ICU awake and alert complains of right sided neck pain and left head numbness denies any sob, cp, fever, chills, abd pain making urine via cystostomy - Current Medication List Current Medications: Active Medications Acetaminophen (Tylenol -) 650 mg PO Q4H PRN PRN Reason: PAIN Last Admin: 03/26/20 06:03 Dose: 650 mg Documented by: Amlodipine Besylate (Norvasc -) 10 mg PO DAILY [facility] Last Admin: 03/26/20 10:40 Dose: 10 mg Documented by: Atorvastatin Calcium (Lipitor -) 10 mg PO HS [facility] Last Admin: 03/25/20 21:16 Dose: 10 mg Documented by: Gabapentin (Neurontin -) 100 mg PO TID [facility] Last Admin: 03/26/20 05:46 Dose: 100 mg Documented by: Heparin Sodium (Porcine) (Heparin -) 5,000 unit SQ TID [facility] Last Admin: 03/26/20 05:46 Dose: 5,000 unit Documented by: Insulin Aspart (Novolog Vial Sliding Scale -) 1 vial [facility]Q [facility]; Protocol Last Admin: 03/26/20 06:02 Dose: 2 units Documented by: Pantoprazole Sodium (Protonix Iv) 40 mg IVPUSH DAILY [facility] Last Admin: 03/26/20 10:40 Dose: 40 mg Documented by: Potassium Phos/Sodium Phos (Phos-Nak Packet -) 1 packet PO BID [facility] Stop: 03/26/20 22:01 Last Admin: 03/26/20 10:40 Dose: 1 packet Documented by: Sodium Bicarbonate (Sodium Bicarbonate -) 1,300 mg PO TID [facility] Last Admin: 03/26/20 05:46 Dose: 1,300 mg Documented by: - Objective Vital Signs: Vital Signs Temperature 98.0 F 03/26/20 10:00 Pulse Rate 67 03/26/20 10:00 Respiratory Rate 18 03/26/20 10:00 Blood Pressure 171/86 H 03/26/20 10:00 O2 Sat by Pulse Oximetry (%) 100 03/26/20 10:00 Constitutional: Yes: No Distress, Calm HENT: Yes: Atraumatic Neck: Yes: Supple Cardiovascular: Yes: Regular Rate and Rhythm Respiratory: Yes: Regular Gastrointestinal: Yes: Soft, Abdomen, Obese, Other (cystostomy in place). No: Tenderness Extremities: No: Cool, Cyanosis Edema: No Neurological: Yes: Alert Labs: CBC, BMP 03/26/20 05:43 03/26/20 05:43 INR, PTT INR 0.97 (0.83-1.09) 03/19/20 19:00 Assessment/Plan 69 year old gentleman with pmhx of htn, ckd, hld, lana, cva, dm, copd, bladder cancer s/p cystectomy who presents with fatigue, weakness and progressive lower ext pain. 1. Acute kidney injury on CKD 2. CKD stage 4 3. Metabolic acidosis from renal failure +Ileal conduit 4. Hyperkalemia 5. Anemia in CKD 6. Hypertension 7. Dyspnea w/o evidence of PNA/CHF 8. V-fib arrest 9. Neck pain/muscle spasm Renal function and acidosis improved. Clinically stable. Continue oral sodium bicarb TID There is no acute indication for renal replacement therapy. Renal function now near baseline Baseline Cr ~3 (last was 3.1 in early February) blood cultures negative Continue amlodipine to 10mg daily Trend renal function and electrolytes daily warm pack to be applied to neck to see if it can alleviate spastic muscle Thank you Freddie Forbes DO
--- NOTE | 2020-03-26 11:46 | PN ---
Teaching Attending Note Name of Resident: Matiled Loera ATTENDING PHYSICIAN STATEMENT I saw and evaluated the patient. I reviewed the resident's note and discussed the case with the resident. I agree with the resident's findings and plan as documented. SUBJECTIVE: OBJECTIVE: ASSESSMENT AND PLAN: 69 year old male with a PMHx notable for HTN, HLD, DM, CVA x2 with residual ataxia, MARLON, COPD on home O2, CKD, bladder carcinoma s/p cystectomy with urostomy who presents to ED with SOB, HOLLY, and bilateral lower leg pain. Admitted for acute renal failure and worsening metabolic acidosis, now resolved. Patient is s/p cardiac arrest, shockable rhythm (vfib) & defibrillation on 03/22 w/ ROSC. #Acute metabolic acidosis #MEKA on CKD (stage 4) It is resolved now his BUN/creatinine is come to the baseline seen by audit associate today #Cardiac arrest He is stable no arrhythmia will continue to follow on telemetry. #COPD -continue home Symbicort and Duoneb #HTN Increase amlodipine to 10 mg a day #DM -hold home oral meds -ACHS BGM ISS #Prophylaxsis -DVT: heparin sq DISPO : Awaiting placement
[2020-03-26] MEDS: ATORVASTATIN CA 10 MG TABLET (FP) PO SCH (22:05)
[2020-03-27] MEDS: HEPARIN NA (PORCINE) 5,000 UNITS/ML 1ML VIAL SQ SCH ×3 (06:25→21:03)
[2020-03-27] MEDS: SODIUM BICARBONATE 650 MG TABLET PO SCH ×3 (06:26→21:04)
[2020-03-27] MEDS: GABAPENTIN 100 MG CAPSULE PO SCH ×3 (06:26→21:04)
[2020-03-27] MEDS: INSULIN SLIDING SCALE (NOVOLOG) 1 VIAL SQ SCH ×4 (06:37→22:16)
--- NOTE | 2020-03-27 09:17 | PN ---
Teaching Attending Note Name of Resident: Godwin Vallejo ATTENDING PHYSICIAN STATEMENT I saw and evaluated the patient. I reviewed the resident's note and discussed the case with the resident. I agree with the resident's findings and plan as documented. This patient is new to me today 03/27/2020 SUBJECTIVE: Patient feels well, has no new complains. OBJECTIVE: Vital Signs Temperature 98.6 F 03/27/20 06:00 Pulse Rate 76 03/27/20 08:55 Respiratory Rate 18 03/27/20 08:57 Blood Pressure 165/85 03/27/20 08:55 O2 Sat by Pulse Oximetry (%) 100 03/27/20 08:57 PE: per resident's note CBCD WBC 7.5 K/mm3 (4.0-10.0) 03/26/20 05:43 RBC 3.70 M/mm3 (4.00-5.60) L 03/26/20 05:43 Hgb 10.4 GM/dL (11.7-16.9) L 03/26/20 05:43 Hct 30.2 % (35.4-49) L 03/26/20 05:43 MCV 81.5 fl (80-96) 03/26/20 05:43 MCHC 34.3 g/dl (32.0-35.9) 03/26/20 05:43 RDW 14.2 % (11.9-15.9) 03/26/20 05:43 Plt Count 195 K/MM3 (134-434) 03/26/20 05:43 MPV 8.4 fl (7.5-11.1) 03/26/20 05:43 CMP Sodium 138 mmol/L (136-145) 03/26/20 05:43 Potassium 3.9 mmol/L (3.5-5.1) 03/26/20 05:43 Chloride 107 mmol/L (98-107) 03/26/20 05:43 Carbon Dioxide 21 mmol/L (21-32) 03/26/20 05:43 Anion Gap 10 MMOL/L (8-16) 03/26/20 05:43 BUN 52.8 mg/dL (7-18) H 03/26/20 05:43 Creatinine 2.5 mg/dL (0.55-1.3) H 03/26/20 05:43 Random Glucose 181 mg/dL (74-106) H 03/26/20 05:43 Calcium 8.7 mg/dL (8.5-10.1) 03/26/20 05:43 Total Bilirubin 0.3 mg/dL (0.2-1) 03/26/20 05:43 AST 31 U/L (15-37) 03/26/20 05:43 ALT 37 U/L (13-61) 03/26/20 05:43 Alkaline Phosphatase 55 U/L (45-117) 03/26/20 05:43 Total Protein 6.2 g/dl (6.4-8.2) L 03/26/20 05:43 Albumin 2.7 g/dl (3.4-5.0) L 03/26/20 05:43 CARDIAC ENZYMES Creatine Kinase 420 U/L (26-308) H 03/23/20 03:00 Troponin I 0.44 ng/ml (0.00-0.05) H 03/23/20 03:00 Current Medications Generic Name Dose Route Start Last Admin Trade Name Freq PRN Reason Stop Dose Admin Acetaminophen 650 mg 03/24/20 20:53 03/26/20 06:03 Tylenol - PO 650 mg Q4H PRN Administration PAIN Amlodipine Besylate 10 mg 03/25/20 10:04 03/26/20 10:40 Norvasc - PO 10 mg DAILY SHANEL Administration Atorvastatin Calcium 10 mg 03/23/20 22:00 03/26/20 22:05 Lipitor - PO 10 mg HS SHANEL Administration Gabapentin 100 mg 03/23/20 14:00 03/27/20 06:26 Neurontin - PO 100 mg TID SHANEL Administration Heparin Sodium (Porcine) 5,000 unit 03/23/20 22:00 03/27/20 06:25 Heparin - SQ 5,000 unit TID SHANEL Administration Insulin Aspart 1 vial 03/23/20 16:30 03/27/20 06:37 Novolog Vial Sliding Scale - SQ 2 units ACHS SHANEL Administration Protocol Pantoprazole Sodium 40 mg 03/24/20 10:00 03/26/20 10:40 Protonix Iv IVPUSH 40 mg DAILY SHAENL Administration Sodium Bicarbonate 1,300 mg 03/24/20 14:00 03/27/20 06:26 Sodium Bicarbonate - PO 1,300 mg TID SHANEL Administration Home Medications Medication Instructions Recorded Atorvastatin Ca [Lipitor] 10 mg PO HS 06/07/17 Doxazosin Mesylate [Cardura -] 4 mg PO DAILY 06/07/17 Insulin Detemir [Levemir Flextouch] 24 unit SQ BID 11/05/17 Gabapentin 300 mg PO TID 06/18/18 Insulin (Novolog) [Novolog -] 40 units SQ TID 04/08/19 Clotrimazole/Betamethasone Dip 15 gm TP BID 03/20/20 [Clotrimazole-Betamethasone Crm] Losartan 50Mg/Hctz 12.5MG [Hyzaar 1 tab PO DAILY 03/20/20 -] Sodium Bicarbonate - 650 mg PO BID 03/20/20 Torsemide 100 mg PO DAILY 03/20/20 EKn 03/22/2020, Sinus rhythm with 1st degree AV block, LAD, Left ventricular hyprtrophy with QRS widening, QRS duration has increased, T-wave inversion now evident in inferior leads, T-wave inversion no longer evident in lateral leads. Duplex of LEs: No DVT ECHO: left ventricle in Nl in size, moderate concentric LVH, EJF;65% , Trace TR, mild aortic root dilatation, mild dilated Ascending aorta. ASSESSMENT AND PLAN: This patient is a 69yom with PMHx of HTN, HLD, DM, CVA x2 with residual ataxia, MARLON, COPD on home O2, CKD, bladder carcinoma s/p cystectomy with urostomy who presents with SOB, HOLLY, and bilateral lower leg pain is admitted for acute renal failure with worsening metabolic acidosis, now resolving. Patient is s/p cardiac arrest, shockable rhythm (vfib) & defibrillation on 03/22 w/ ROSC. #s/p Extubation due to having Cardiac arrest with intubation on 03/22/2020 due to VFIB with Rosc achieved, s/p defibrillation s/p pressors off all pressors now will get cardio to see the patient. EKG new T wave inversion and widening QRS #Acute metabolic acidosis on po NAHco3, s/p Bicarb drip #MEKA on CKD (stage 4), baseline Cr ~3 (2.5 today), nephro is on the case , Dr Forbes #Acute UTI s/p IV receophin #LE edema : duplex negative for DVT #COPD: stable continue home Symbicort and Duoneb #HTN: on amlodipine 5mg daily, titrate to goal of 130/80 #T2DM: on BGMs with SS scale with coverage DVT PPX: heparin sq going for stress test in AM .MIBI
[2020-03-27] MEDS: PANTOPRAZOLE SODIUM 40 MG VIAL IVPUSH SCH (10:05)
[2020-03-27] MEDS: amLODIPine BESYLATE 10 MG TABLET (FP) PO SCH (10:43)
[2020-03-27 11:25] LABS: HEMATOCRIT 30.6 % (35.4-49); HEMOGLOBIN 10.3 GM/dL (11.7-16.9); MCH 27.8 pg (25.7-33.7); MCHC 33.6 g/dl (32.0-35.9); MEAN CELL VOLUME 82.6 fl (80-96); MEAN PLT VOLUME 9.2 fl (7.5-11.1); PLATELET COUNT 187 K/MM3 (134-434)
[2020-03-27 11:49] LABS: WHITE BLOOD COUNT 16.3 K/mm3 (4.0-10.0)
[2020-03-27 11:53] LABS: BILIRUBIN,TOTAL 0.3 mg/dL (0.2-1); BLOOD UREA NITROGEN 52.1 mg/dL (7-18); CALCIUM 8.8 mg/dL (8.5-10.1); CREATININE 2.6 mg/dL (0.55-1.3); MAGNESIUM 1.9 mg/dL (1.8-2.4); PHOSPHOROUS 2.2 mg/dL (2.5-4.9); POTASSIUM 4.2 mmol/L (3.5-5.1); TOT PROT 6.5 g/dl (6.4-8.2)
--- NOTE | 2020-03-27 12:02 | PN ---
Physical Exam: SUBJECTIVE: Patient seen and examined at bedside. No acute events reported overnight. OBJECTIVE: Vital Signs Period Temp Pulse Resp BP Sys/Argueta Pulse Ox Last 24 Hr 98.0 F-98.6 F 64-78 18-19 140-165/52-85 100-100 GENERAL: AAOx3, appears fatigued HEENT: NCAT, PERRLA, EOMI, sclera anicteric, conjunctiva clear, oropharynx clear w/o exudates. MMM. NECK: Normal ROM, supple, no lymphadenopathy, JVD, or masses LUNGS: CTABL no wheezes/ rhonchi/ rales. No distress, speaks in full sentences. No increased work of breathing. HEART: RRR, normal S1 S2, no M/R/G, peripheral pulses 2+ and equal b/l ABDOMEN: Soft, NTND, + BS. No guarding or rebound. No hepatomegaly or splenomegaly. MSK: ROM WNL EXTREMITIES: Normal inspection. No peripheral edema. No clubbing or cyanosis. NEUROLOGICAL: CN II-XII intact. Normal speech, normal gait, no focal sensorimotor deficits. SKIN: Warm, Dry, normal turgor, no rashes or lesions noted Laboratory Results - last 24 hr Anion Gap CBC, BMP 03/27/20 10:55 03/27/20 10:55 03/26/20 03/26/20 03/27/20 17:11 21:59 06:27 WBC RBC Hgb Hct MCV MCH MCHC RDW Neutrophils % Lymphocytes % Nucleated RBC % Sodium Potassium Chloride Carbon Dioxide Anion Gap BUN Creatinine Est GFR (CKD-EPI)AfAm Est GFR (CKD-EPI)NonAf POC Glucometer 264 202 190 Random Glucose Calcium Phosphorus Magnesium Total Bilirubin AST ALT Alkaline Phosphatase Total Protein Albumin 03/27/20 03/27/20 03/27/20 10:55 10:55 11:02 WBC 16.3 H RBC 3.70 L Hgb 10.3 L Hct 30.6 L MCV 82.6 MCH 27.8 MCHC 33.6 RDW 14.0 Neutrophils % No Result Required. Lymphocytes % No Result Required. Nucleated RBC % 0 Sodium 137 Potassium 4.2 Chloride 106 Carbon Dioxide 23 Anion Gap 8 BUN 52.1 H Creatinine 2.6 H Est GFR (CKD-EPI)AfAm 27.52 Est GFR (CKD-EPI)NonAf 23.75 POC Glucometer 206 Random Glucose 208 H Calcium 8.8 Phosphorus 2.2 L Magnesium 1.9 Total Bilirubin 0.3 AST 41 H ALT 48 Alkaline Phosphatase 55 Total Protein 6.5 Albumin 3.0 L Active Medications Generic Name Dose Route Start Last Admin Trade Name Osvaldo PRN Reason Stop Dose Admin Acetaminophen 650 mg 03/24/20 20:53 03/26/20 06:03 Tylenol - PO 650 mg Q4H PRN Administration PAIN Amlodipine Besylate 10 mg 03/25/20 10:04 03/27/20 10:43 Norvasc - PO 10 mg DAILY SHANEL Administration Atorvastatin Calcium 10 mg 03/23/20 22:00 03/26/20 22:05 Lipitor - PO 10 mg HS SHANEL Administration Gabapentin 100 mg 03/23/20 14:00 03/27/20 06:26 Neurontin - PO 100 mg TID SHANEL Administration Heparin Sodium (Porcine) 5,000 unit 03/23/20 22:00 03/27/20 06:25 Heparin - SQ 5,000 unit TID SHANEL Administration Insulin Aspart 1 vial 03/23/20 16:30 03/27/20 11:04 Novolog Vial Sliding Scale - SQ 4 units ACHS SHANEL Administration Protocol Pantoprazole Sodium 40 mg 03/24/20 10:00 03/27/20 10:05 Protonix Iv IVPUSH 40 mg DAILY SHANEL Administration Sodium Bicarbonate 1,300 mg 03/24/20 14:00 03/27/20 06:26 Sodium Bicarbonate - PO 1,300 mg TID SHANEL Administration ASSESSMENT/PLAN: 69 y.o .M PMH HTN, HLD, DM, CVA x2 with residual ataxia, MARLON, COPD on home O2, CKD, bladder carcinoma s/p cystectomy with urostomy who presents with SOB, HOLLY, and bilateral lower leg pain. Admitted for acute renal failure and worsening metabolic acidosis, now resolving. Patient is s/p cardiac arrest, shockable rhythm (vfib) & defibrillation on 03/22 w/ ROSC. #Acute metabolic acidosis #MEKA on CKD (stage 4) -acidosis resolving -bicard gtt d/c'd, continue oral NaHco3 therapy (TID) -trend daily renal labs; baseline Cr ~3 (2.6 today) -No indication for [employer]ER at this time as per renal -avoid nephrotoxic agents -Dr. Forbes (nephro) following #Cardiac arrest -03/22/20- found to be in V-fib, s/p defibrillation with ROSC achieved -pt was intubated 03/22, now extubated -previously requiring pressor support however currently off all pressors -cont monitor on telemetry -vital signs have been stable -cardiology consulted: cardiac arrest was likely in setting of metabolic acidosis; f/u outpt regarding dilated aortic root and ascending aorta #UTI -completed IV receophin -no complaints of dysuria/ hematuria -observe off abx #LE edema -resolving -b/l LE US showing no evidence of DVT -echo showing no signs of heart failure #COPD -continue home Symbicort and Duoneb #HTN - amlodipine 5mg daily, titrate to goal of 130/80 #DM -hold home oral meds -ACHS BGM ISS #FEN -no standing fluids -monitor lytes; replete PRN -sodium restricted/diabetic diet #Prophylaxis -DVT: heparin sq dispo: continue to monitor in tele Visit type - Emergency Visit Emergency Visit: No - New Patient This patient is new to me today: No - Critical Care Critical Care patient: No - Discharge Referral Referred to [facility] No - Medication Review Med list reviewed for High Risk Meds patients 65 and older: Yes ATTENDING PHYSICIAN STATEMENT I saw and evaluated the patient. I reviewed the resident's note and discussed the case with the resident. I agree with the resident's findings and plan as documented. SUBJECTIVE: OBJECTIVE: ASSESSMENT AND PLAN:
--- NOTE | 2020-03-27 13:20 | CON.CARD ---
Consult Consult Specialty:: Cardiology Referred by:: Medicine Reason for Consultation:: cardiac arrest, Vfib - History of Present Illness Chief Complaint: cardiac arrest History of Present Illness: 69M HTN, HLD, DM, CVA, MARLON, COPD on home o2, bladder carcinoma, CKD p/w dyspnea, bilateral leg pain, chest pain, cough. Had ran out of bicarb tablets at home, has a history of CKD managed by renal, has refused HD. presented 03/19 to ER with acidosis, started on IVF and bicarb gtt. on 03/22 had code called, pulseless vfib on monitor. Defibrillated x 1, intubated with rosc acheived and transferred to ICU on amiodarone and vasopressin gtt. Patient was extubated, amiodarone and pressors dc'ed and has been hemodynamically stable, metabolic acidosis has improved. denies cardiac history. no chest pain, palps, dizziness, dyspnea. 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 History of Recent Travel: No Home Medications - Allergies Allergies/Adverse Reactions: Allergies Allergy/AdvReac Type Severity Reaction Status Date / Time shrimp Allergy Intermediate Vomiting Verified 03/19/20 18:00 - Home Medications Home Medications: Ambulatory Orders Atorvastatin Ca [Lipitor] 10 mg PO HS 06/07/17 Doxazosin Mesylate [Cardura -] 4 mg PO DAILY 06/07/17 Insulin Detemir [Levemir Flextouch] 24 unit SQ BID 11/05/17 Gabapentin 300 mg PO TID 06/18/18 Insulin (Novolog) [Novolog -] 40 units SQ TID 04/08/19 Clotrimazole/Betamethasone Dip [Clotrimazole-Betamethasone Crm] 15 gm TP BID 03/20/20 Losartan 50Mg/Hctz 12.5MG [Hyzaar -] 1 tab PO DAILY 03/20/20 Sodium Bicarbonate - 650 mg PO BID 03/20/20 Torsemide 100 mg PO DAILY 03/20/20 Family Medical History Family History: Denies Review of Systems - Review of Systems Constitutional: reports: No Symptoms Eyes: reports: No Symptoms HENT: reports: No Symptoms Neck: reports: No Symptoms Cardiovascular: reports: No Symptoms Respiratory: reports: No Symptoms Gastrointestinal: reports: No Symptoms Genitourinary: reports: No Symptoms Musculoskeletal: reports: No Symptoms Integumentary: reports: No Symptoms Neurological: reports: No Symptoms Endocrine: reports: No Symptoms Hematology/Lymphatic: reports: No Symptoms Psychiatric: reports: No Symptoms Vital Signs: Vital Signs Temperature 98.6 F 03/27/20 06:00 Pulse Rate 85 03/27/20 12:00 Respiratory Rate 18 03/27/20 12:00 Blood Pressure 128/85 03/27/20 12:00 O2 Sat by Pulse Oximetry (%) 100 03/27/20 12:00 Constitutional: Yes: No Distress, Calm Eyes: Yes: Conjunctiva Clear, EOM Intact HENT: Yes: Atraumatic, Normocephalic Neck: Yes: Supple, Trachea Midline Respiratory: Yes: Regular, CTA Bilaterally Gastrointestinal: Yes: Normal Bowel Sounds, Soft Cardiovascular: Yes: Regular Rate and Rhythm JVD: No Carotid Bruit: No Musculoskeletal: No: Back Pain Extremities: No: Cold Edema: No Integumentary: No: Jaundice Neurological: Yes: Alert, Oriented Psychiatric: No: Agitated - Other Data Labs, Other Data: CBC, BMP 03/27/20 10:55 03/27/20 10:55 INR, PTT INR 0.97 (0.83-1.09) 03/19/20 19:00 Assessment/Plan EKG: sinus, first deg AV block, LAD, LVH, IVCD echo 03/2020 nl LV function, mod conc LVH, EF 65%, mild ao root dilation, mildly dilated ascending aorta tele: sinus 69M h/o HTN, HLD, DM, CVA, COPD on home O2, CKD here with MEKA, metabolic acidosis s/p vfib arrest ventricular fibrillation, cardiac arrest - cardiac arrest on 03/22 - has been off pressors, amiodarone - no further arrhythmia episodes noted on tele - was likely in setting of metabolic acidosis - echo unremarkable - trop on 03/22 mildly elevated may be in setting of CPR, cardiac arrest - will evaluate with mibi MEKA on CKD stage 4, metabolic acidosis - manage per renal UTI - manage per primary COPD - manage per primary HTN - cont current meds DM - manage per primary dilated aortic root, ascending aorta - BP control - outpatient follow up
[2020-03-27 14:05] LABS: ANISOCYTOSIS 0; MACROCYTOSIS 0; PLATELET ESTIMATE NORMAL
[2020-03-27] MEDS: NAPH,MB-DB/K PH,MBDB POWDER PACKET PO SCH ×2 (17:48→21:04)
--- NOTE | 2020-03-27 18:25 | PN ---
Progress Note, Physician Chief Complaint: Leg pain and weakness History of Present Illness: Seen and examined in the ICU awake and alert offers no acute complaints denies any sob, cp, fever, chills, abd pain making urine via cystostomy - Current Medication List Current Medications: Active Medications Acetaminophen (Tylenol -) 650 mg PO Q4H PRN PRN Reason: PAIN Last Admin: 03/26/20 06:03 Dose: 650 mg Documented by: Amlodipine Besylate (Norvasc -) 10 mg PO DAILY [facility] Last Admin: 03/27/20 10:43 Dose: 10 mg Documented by: Atorvastatin Calcium (Lipitor -) 10 mg PO HS [facility] Last Admin: 03/26/20 22:05 Dose: 10 mg Documented by: Gabapentin (Neurontin -) 100 mg PO TID [facility] Last Admin: 03/27/20 13:26 Dose: 100 mg Documented by: Heparin Sodium (Porcine) (Heparin -) 5,000 unit SQ TID [facility] Last Admin: 03/27/20 13:26 Dose: 5,000 unit Documented by: Insulin Aspart (Novolog Vial Sliding Scale -) 1 vial SQ [facility]; Protocol Last Admin: 03/27/20 16:26 Dose: 4 units Documented by: Pantoprazole Sodium (Protonix Iv) 40 mg IVPUSH DAILY [facility] Last Admin: 03/27/20 10:05 Dose: 40 mg Documented by: Potassium Phos/Sodium Phos (Phos-Nak Packet -) 1 packet PO TID [facility] Stop: 03/28/20 06:01 Last Admin: 03/27/20 17:48 Dose: 1 packet Documented by: Sodium Bicarbonate (Sodium Bicarbonate -) 1,300 mg PO TID [facility] Last Admin: 03/27/20 13:26 Dose: 1,300 mg Documented by: - Objective Vital Signs: Vital Signs Temperature 98.6 F 03/27/20 06:00 Pulse Rate 82 03/27/20 17:53 Respiratory Rate 18 03/27/20 17:53 Blood Pressure 158/78 03/27/20 17:53 O2 Sat by Pulse Oximetry (%) 100 03/27/20 17:53 Constitutional: Yes: No Distress, Calm HENT: Yes: Atraumatic Neck: Yes: Supple Cardiovascular: Yes: Regular Rate and Rhythm Respiratory: Yes: Regular, CTA Bilaterally, Diminished. No: Rales, Rhonchi, SOB Gastrointestinal: Yes: Soft, Abdomen, Obese. No: Tenderness Extremities: No: Cold, Cool, Cyanosis Edema: No Neurological: Yes: Alert Labs: CBC, BMP 03/27/20 10:55 03/27/20 10:55 INR, PTT INR 0.97 (0.83-1.09) 03/19/20 19:00 Assessment/Plan 69 year old gentleman with pmhx of htn, ckd, hld, lana, cva, dm, copd, bladder cancer s/p cystectomy who presents with fatigue, weakness and progressive lower ext pain. 1. Acute kidney injury on CKD 2. CKD stage 4 3. Metabolic acidosis from renal failure +Ileal conduit 4. Hyperkalemia 5. Anemia in CKD 6. Hypertension 7. Dyspnea w/o evidence of PNA/CHF 8. V-fib arrest 9. Neck pain/muscle spasm Renal function stable at baseline. Acidosis improved, goal bicarb > 22 Clinically stable. Continue oral sodium bicarb TID There is no acute indication for renal replacement therapy. Renal function now near baseline blood cultures negative Continue amlodipine to 10mg daily Trend renal function and electrolytes daily for stress test tomorrow discharge planning as per primary team. Thank you Freddie Forbes DO
[2020-03-27] MEDS: ATORVASTATIN CA 10 MG TABLET (FP) PO SCH (21:03)
[2020-03-28] MEDS: INSULIN SLIDING SCALE (NOVOLOG) 1 VIAL SQ SCH ×4 (06:15→22:27)
[2020-03-28] MEDS: HEPARIN NA (PORCINE) 5,000 UNITS/ML 1ML VIAL SQ SCH ×3 (06:15→22:27)
[2020-03-28] MEDS: GABAPENTIN 100 MG CAPSULE PO SCH ×3 (06:15→22:27)
[2020-03-28] MEDS: NAPH,MB-DB/K PH,MBDB POWDER PACKET PO SCH (06:15)
[2020-03-28] MEDS: SODIUM BICARBONATE 650 MG TABLET PO SCH ×3 (06:15→22:27)
[2020-03-28 07:27] LABS: BASO % 0.4 % (0-2.0); EOS % 5.8 % (0-4.5); HEMATOCRIT 29.1 % (35.4-49); HEMOGLOBIN 9.8 GM/dL (11.7-16.9); LYMPH % 13.5 % (8-40); MCHC 33.8 g/dl (32.0-35.9); MEAN CELL VOLUME 82.9 fl (80-96); MEAN PLT VOLUME 8.3 fl (7.5-11.1); MONO % 10.6 % (3.8-10.2); NEUT % 69.7 % (42.8-82.8); PLATELET COUNT 189 K/MM3 (134-434); RBC 3.51 M/mm3 (4.00-5.60); RDW 14.3 % (11.9-15.9); WHITE BLOOD COUNT 6.1 K/mm3 (4.0-10.0)
[2020-03-28 07:36] LABS: ALBUMIN 2.8 g/dl (3.4-5.0); BILIRUBIN,TOTAL 0.5 mg/dL (0.2-1); CALCIUM 8.8 mg/dL (8.5-10.1); CREATININE 2.7 mg/dL (0.55-1.3); PHOSPHOROUS 3.1 mg/dL (2.5-4.9); POTASSIUM 4.3 mmol/L (3.5-5.1)
[2020-03-28] MEDS ORDERED: REGADENOSON 0.4 MG/5 ML PRE-FILLED SYRINGE IVPUSH ONE ×2 (09:37→09:45)
[2020-03-28] MEDS: PANTOPRAZOLE SODIUM 40 MG VIAL IVPUSH SCH (12:13)
[2020-03-28] MEDS: amLODIPine BESYLATE 10 MG TABLET (FP) PO SCH (12:13)
--- NOTE | 2020-03-28 13:12 | PN ---
Progress Note, Physician Chief Complaint: Leg pain and weakness History of Present Illness: Seen and examined in the ICU awake and alert offers no acute complaints denies any sob, cp, fever, chills, abd pain making urine via cystostomy s/p stress test this AM - Current Medication List Current Medications: Active Medications Acetaminophen (Tylenol -) 650 mg PO Q4H PRN PRN Reason: PAIN Last Admin: 03/26/20 06:03 Dose: 650 mg Documented by: Amlodipine Besylate (Norvasc -) 10 mg PO DAILY [facility] Last Admin: 03/28/20 12:13 Dose: 10 mg Documented by: Atorvastatin Calcium (Lipitor -) 10 mg PO HS [facility] Last Admin: 03/27/20 21:03 Dose: 10 mg Documented by: Gabapentin (Neurontin -) 100 mg PO TID [facility] Last Admin: 03/28/20 06:15 Dose: Not Given Documented by: Heparin Sodium (Porcine) (Heparin -) 5,000 unit SQ TID [facility] Last Admin: 03/28/20 06:15 Dose: 5,000 unit Documented by: Insulin Aspart (Novolog Vial Sliding Scale -) 1 vial SQ [facility]; Protocol Last Admin: 03/28/20 12:26 Dose: 4 units Documented by: Pantoprazole Sodium (Protonix Iv) 40 mg IVPUSH DAILY [facility] Last Admin: 03/28/20 12:13 Dose: 40 mg Documented by: Sodium Bicarbonate (Sodium Bicarbonate -) 1,300 mg PO TID [facility] Last Admin: 03/28/20 06:15 Dose: Not Given Documented by: - Objective Vital Signs: Vital Signs Temperature 98 F 03/28/20 09:00 Pulse Rate 98 H 03/28/20 09:00 Respiratory Rate 20 03/28/20 09:00 Blood Pressure 153/89 03/28/20 09:00 O2 Sat by Pulse Oximetry (%) 98 03/28/20 09:00 Constitutional: Yes: Calm Neck: Yes: Supple Cardiovascular: Yes: Regular Rate and Rhythm Respiratory: Yes: Regular Gastrointestinal: Yes: Soft. No: Tenderness Extremities: No: Cyanosis Edema: Yes Edema: LLE: Trace, RLE: Trace Neurological: Yes: Alert Labs: CBC, BMP 03/28/20 06:28 03/28/20 06:28 INR, PTT INR 0.97 (0.83-1.09) 03/19/20 19:00 Assessment/Plan 69 year old gentleman with pmhx of htn, ckd, hld, lana, cva, dm, copd, bladder cancer s/p cystectomy who presents with fatigue, weakness and progressive lower ext pain. 1. Acute kidney injury on CKD 2. CKD stage 4 3. Metabolic acidosis from renal failure +Ileal conduit 4. Hyperkalemia 5. Anemia in CKD 6. Hypertension 7. Dyspnea w/o evidence of PNA/CHF 8. V-fib arrest 9. Neck pain/muscle spasm Renal function stable at baseline. Acidosis improved, goal bicarb > 22 Clinically stable. Continue oral sodium bicarb TID There is no acute indication for renal replacement therapy. Renal function now near baseline blood cultures negative Continue amlodipine to 10mg daily Trend renal function and electrolytes daily follow up stress test results. discharge planning as per primary team. upon discharge can follow up with Dr. Mariangel Malcolm. Thank you Freddie Forbes DO
--- NOTE | 2020-03-28 13:16 | PN ---
Physical Exam: SUBJECTIVE: Patient seen and examined at bedside. No acute events reported overnight. This morning patient is continuing to complain of neck pain. OBJECTIVE: Vital Signs Period Temp Pulse Resp BP Sys/Argueta Pulse Ox Last 24 Hr 97.9 F-98.1 F 69-98 17-20 102-161/74-92 98-100 GENERAL: AAOx3. No acute destress HEENT: NCAT, PERRLA, EOMI, sclera anicteric, conjunctiva clear, oropharynx clear w/o exudates. MMM. NECK: Normal ROM, supple, no lymphadenopathy, JVD. Cellulitis on the right posterior neck that. LUNGS: CTABL no wheezes/ rhonchi/ rales. No distress, speaks in full sentences. No increased work of breathing. HEART: RRR, normal S1 S2, no M/R/G, peripheral pulses 2+ and equal b/l ABDOMEN: Soft, NTND, + BS. No guarding or rebound. No hepatomegaly or splenomegaly. MSK: ROM WNL EXTREMITIES: Normal inspection. No peripheral edema. No clubbing or cyanosis. NEUROLOGICAL: CN II-XII intact. Normal speech, normal gait, no focal sensorimotor deficits. SKIN: Warm, Dry, normal turgor, no rashes or lesions noted Laboratory Results - last 24 hr CBC, BMP 03/28/20 06:28 03/28/20 06:28 03/27/20 03/27/20 03/27/20 10:55 16:21 22:01 WBC RBC Hgb Hct MCV MCH MCHC RDW Plt Count 187 MPV 9.2 Absolute Neuts (auto) Neutrophils % Neutrophils % (Manual) 83.8 H Band Neutrophils % 0.0 Lymphocytes % Lymphocytes % (Manual) 6.1 L Monocytes % Monocytes % (Manual) 2 L Eosinophils % Eosinophils % (Manual) 8.1 H D Basophils % Basophils % (Manual) 0.0 Myelocytes % (Man) 0 Promyelocytes % (Man) 0 Blast Cells % (Manual) 0 Nucleated RBC % 1 H Metamyelocytes 0 Hypochromia 0 Platelet Estimate Normal Polychromasia 0 Poikilocytosis 0 Anisocytosis 0 Microcytosis 0 Macrocytosis 0 Sodium Potassium Chloride Carbon Dioxide Anion Gap BUN Creatinine Est GFR (CKD-EPI)AfAm Est GFR (CKD-EPI)NonAf POC Glucometer 225 275 Random Glucose Calcium Phosphorus Magnesium Total Bilirubin AST ALT Alkaline Phosphatase Total Protein Albumin 03/28/20 03/28/20 03/28/20 05:35 06:28 06:28 WBC 6.1 RBC 3.51 L Hgb 9.8 L Hct 29.1 L MCV 82.9 MCH 28.0 MCHC 33.8 RDW 14.3 Plt Count 189 MPV 8.3 Absolute Neuts (auto) 4.2 Neutrophils % 69.7 Neutrophils % (Manual) Band Neutrophils % Lymphocytes % 13.5 D Lymphocytes % (Manual) Monocytes % 10.6 H Monocytes % (Manual) Eosinophils % 5.8 H D Eosinophils % (Manual) Basophils % 0.4 Basophils % (Manual) Myelocytes % (Man) Promyelocytes % (Man) Blast Cells % (Manual) Nucleated RBC % 0 Metamyelocytes Hypochromia Platelet Estimate Polychromasia Poikilocytosis Anisocytosis Microcytosis Macrocytosis Sodium 138 Potassium 4.3 Chloride 108 H Carbon Dioxide 22 Anion Gap 9 BUN 48.0 H Creatinine 2.7 H Est GFR (CKD-EPI)AfAm 26.29 Est GFR (CKD-EPI)NonAf 22.69 POC Glucometer 210 Random Glucose 198 H Calcium 8.8 Phosphorus 3.1 Magnesium 2.0 Total Bilirubin 0.5 AST 40 H ALT 52 Alkaline Phosphatase 54 Total Protein 6.0 L Albumin 2.8 L 03/28/20 12:20 WBC RBC Hgb Hct MCV MCH MCHC RDW Plt Count MPV Absolute Neuts (auto) Neutrophils % Neutrophils % (Manual) Band Neutrophils % Lymphocytes % Lymphocytes % (Manual) Monocytes % Monocytes % (Manual) Eosinophils % Eosinophils % (Manual) Basophils % Basophils % (Manual) Myelocytes % (Man) Promyelocytes % (Man) Blast Cells % (Manual) Nucleated RBC % Metamyelocytes Hypochromia Platelet Estimate Polychromasia Poikilocytosis Anisocytosis Microcytosis Macrocytosis Sodium Potassium Chloride Carbon Dioxide Anion Gap BUN Creatinine Est GFR (CKD-EPI)AfAm Est GFR (CKD-EPI)NonAf POC Glucometer 234 Random Glucose Calcium Phosphorus Magnesium Total Bilirubin AST ALT Alkaline Phosphatase Total Protein Albumin Active Medications Generic Name Dose Route Start Last Admin Trade Name Freq PRN Reason Stop Dose Admin Acetaminophen 650 mg 03/24/20 20:53 03/26/20 06:03 Tylenol - PO 650 mg Q4H PRN Administration PAIN Amlodipine Besylate 10 mg 03/25/20 10:04 03/28/20 12:13 Norvasc - PO 10 mg DAILY SHANEL Administration Atorvastatin Calcium 10 mg 03/23/20 22:00 03/27/20 21:03 Lipitor - PO 10 mg HS SHANEL Administration Gabapentin 100 mg 03/23/20 14:00 03/28/20 06:15 Neurontin - PO Not Given TID SHANEL Heparin Sodium (Porcine) 5,000 unit 03/23/20 22:00 03/28/20 06:15 Heparin - SQ 5,000 unit TID SHANEL Administration Insulin Aspart 1 vial 03/23/20 16:30 03/28/20 12:26 Novolog Vial Sliding Scale - SQ 4 units ACHS SHANEL Administration Protocol Pantoprazole Sodium 40 mg 03/24/20 10:00 03/28/20 12:13 Protonix Iv IVPUSH 40 mg DAILY SHANEL Administration Sodium Bicarbonate 1,300 mg 03/24/20 14:00 03/28/20 06:15 Sodium Bicarbonate - PO Not Given TID SHANEL ASSESSMENT/PLAN: 69 y.o .M PMH HTN, HLD, DM, CVA x2 with residual ataxia, MARLON, COPD on home O2, CKD, bladder carcinoma s/p cystectomy with urostomy who presents with SOB, HOLLY, and bilateral lower leg pain. Admitted for acute renal failure and worsening metabolic acidosis, now resolving. Patient is s/p cardiac arrest, shockable rhythm (vfib) & defibrillation on 03/22 w/ ROSC. #Acute metabolic acidosis (MEKA on CKD (stage 4)) -acidosis resolving -bicard gtt d/c'd, continue oral NaHco3 therapy (TID) -trend daily renal labs; baseline Cr ~3 (2.7 today) -No indication for [employer] at this time as per renal -avoid nephrotoxic agents -Dr. Forbes (nephro) following: acidosis improving, can be f/u with Dr. Malcolm outpt #Cardiac arrest -03/22/20- found to be in V-fib, s/p defibrillation with ROSC achieved -pt was intubated 03/22, now extubated -previously requiring pressor support however currently off all pressors -cont monitor on telemetry -VSS -stress test today --> f/u stress test results -cardiology consulted: cardiac arrest was likely in setting of metabolic acidosis; f/u outpt regarding dilated aortic root and ascending aorta #Neck Cellulitis -ID consult- ordered sonogram of neck -f/u ID reccs -hot packs PRN #UTI -completed IV receophin -no complaints of dysuria/ hematuria -observe off abx #LE edema -resolving -b/l LE US showing no evidence of DVT -echo showing no signs of heart failure #COPD -continue home Symbicort and Duoneb #HTN - amlodipine 10 mg daily #DM -hold home oral meds -ACHS BGM ISS #FEN -no standing fluids -monitor lytes; replete PRN -NPO today for stress test, resume diet after #Prophylaxis -DVT: heparin sq dispo: continue to monitor in tele Visit type - Emergency Visit Emergency Visit: No - New Patient This patient is new to me today: No - Critical Care Critical Care patient: No - Medication Review Med list reviewed for High Risk Meds patients 65 and older: Yes ATTENDING PHYSICIAN STATEMENT I saw and evaluated the patient. I reviewed the resident's note and discussed the case with the resident. I agree with the resident's findings and plan as documented. SUBJECTIVE: OBJECTIVE: ASSESSMENT AND PLAN:
--- NOTE | 2020-03-28 13:44 | PN ---
Progress Note (short form) - Note Progress Note: cc: cardiac arrest s: no chest pain, palps, dizziness, dyspnea Current Medications Generic Name Dose Route Start Last Admin Trade Name Osvaldo PRN Reason Stop Dose Admin Acetaminophen 650 mg 03/24/20 20:53 03/26/20 06:03 Tylenol - PO 650 mg Q4H PRN Administration PAIN Amlodipine Besylate 10 mg 03/25/20 10:04 03/28/20 12:13 Norvasc - PO 10 mg DAILY SHANEL Administration Atorvastatin Calcium 10 mg 03/23/20 22:00 03/27/20 21:03 Lipitor - PO 10 mg HS SHANEL Administration Gabapentin 100 mg 03/23/20 14:00 03/28/20 13:32 Neurontin - PO 100 mg TID SHANEL Administration Heparin Sodium (Porcine) 5,000 unit 03/23/20 22:00 03/28/20 13:32 Heparin - SQ 5,000 unit TID SHANEL Administration Insulin Aspart 1 vial 03/23/20 16:30 03/28/20 12:26 Novolog Vial Sliding Scale - SQ 4 units ACHS SHANEL Administration Protocol Pantoprazole Sodium 40 mg 03/24/20 10:00 03/28/20 12:13 Protonix Iv IVPUSH 40 mg DAILY SHANEL Administration Sodium Bicarbonate 1,300 mg 03/24/20 14:00 03/28/20 13:32 Sodium Bicarbonate - PO 1,300 mg TID SHANEL Administration Vital Signs Period Temp Pulse Resp BP Sys/Argueta Pulse Ox Last 24 Hr 97.9 F-98.1 F 69-98 17-20 102-161/74-92 98-100 Constitutional: Yes: No Distress, Calm Eyes: Yes: Conjunctiva Clear, EOM Intact HENT: Yes: Atraumatic, Normocephalic Neck: Yes: Supple, Trachea Midline Respiratory: Yes: Regular, CTA Bilaterally Gastrointestinal: Yes: Normal Bowel Sounds, Soft Cardiovascular: Yes: Regular Rate and Rhythm JVD: No Carotid Bruit: No Musculoskeletal: No: Back Pain Extremities: No: Cold Edema: No Integumentary: No: Jaundice Neurological: Yes: Alert, Oriented Psychiatric: No: Agitated Assessment/Plan EKG: sinus, first deg AV block, LAD, LVH, IVCD echo 03/2020 nl LV function, mod conc LVH, EF 65%, mild ao root dilation, mildly dilated ascending aorta tele: sinus 69M h/o HTN, HLD, DM, CVA, COPD on home O2, CKD here with MEKA, metabolic acidosis s/p vfib arrest ventricular fibrillation, cardiac arrest - cardiac arrest on 03/22 - has been off pressors, amiodarone - no further arrhythmia episodes noted on tele - was likely in setting of metabolic acidosis - echo unremarkable - trop on 03/22 mildly elevated may be in setting of CPR, cardiac arrest - mibi pending MEKA on CKD stage 4, metabolic acidosis - manage per renal UTI - manage per primary COPD - manage per primary HTN - cont current meds DM - manage per primary dilated aortic root, ascending aorta - BP control - outpatient follow up
--- NOTE | 2020-03-28 13:59 | PN ---
Progress Note (short form) - Note Progress Note: ID consult dictated notes discomfort back of neck- after he was extubated no erythema no drainage no fluctuance wbc normal, no fever reports some gradual improvement get sonogram to r/o collection consider ct scan if symptoms persist suspect discomfort from physical restraint/device no signs cellulitis or abscess Problem List - Problems (1) Neck discomfort Code(s): M54.2 - CERVICALGIA
--- NOTE | 2020-03-28 19:05 | PN ---
Teaching Attending Note Name of Resident: Godwin Vallejo ATTENDING PHYSICIAN STATEMENT I saw and evaluated the patient. I reviewed the resident's note and discussed the case with the resident. I agree with the resident's findings and plan as documented. SUBJECTIVE: Patient is comfortable with NAd OBJECTIVE: Vital Signs Temperature 98.2 F 03/28/20 18:00 Pulse Rate 67 03/28/20 18:00 Respiratory Rate 20 03/28/20 18:00 Blood Pressure 141/69 03/28/20 18:00 O2 Sat by Pulse Oximetry (%) 98 03/28/20 09:00 PE:per resident's note CBCD WBC 6.1 K/mm3 (4.0-10.0) 03/28/20 06:28 RBC 3.51 M/mm3 (4.00-5.60) L 03/28/20 06:28 Hgb 9.8 GM/dL (11.7-16.9) L 03/28/20 06:28 Hct 29.1 % (35.4-49) L 03/28/20 06:28 MCV 82.9 fl (80-96) 03/28/20 06:28 MCHC 33.8 g/dl (32.0-35.9) 03/28/20 06:28 RDW 14.3 % (11.9-15.9) 03/28/20 06:28 Plt Count 189 K/MM3 (134-434) 03/28/20 06:28 MPV 8.3 fl (7.5-11.1) 03/28/20 06:28 CMP Sodium 138 mmol/L (136-145) 03/28/20 06:28 Potassium 4.3 mmol/L (3.5-5.1) 03/28/20 06:28 Chloride 108 mmol/L (98-107) H 03/28/20 06:28 Carbon Dioxide 22 mmol/L (21-32) 03/28/20 06:28 Anion Gap 9 MMOL/L (8-16) 03/28/20 06:28 BUN 48.0 mg/dL (7-18) H 03/28/20 06:28 Creatinine 2.7 mg/dL (0.55-1.3) H 03/28/20 06:28 Random Glucose 198 mg/dL (74-106) H 09/09/20 06:28 Calcium 8.8 mg/dL (8.5-10.1) 03/28/20 06:28 Total Bilirubin 0.5 mg/dL (0.2-1) 03/28/20 06:28 AST 40 U/L (15-37) H 03/28/20 06:28 ALT 52 U/L (13-61) 03/28/20 06:28 Alkaline Phosphatase 54 U/L (45-117) 03/28/20 06:28 Total Protein 6.0 g/dl (6.4-8.2) L 03/28/20 06:28 Albumin 2.8 g/dl (3.4-5.0) L 03/28/20 06:28 CARDIAC ENZYMES Creatine Kinase 420 U/L (26-308) H 03/23/20 03:00 Troponin I 0.44 ng/ml (0.00-0.05) H 03/23/20 03:00 Current Medications Generic Name Dose Route Start Last Admin Trade Name Freq PRN Reason Stop Dose Admin Acetaminophen 650 mg 03/24/20 20:53 03/26/20 06:03 Tylenol - PO 650 mg Q4H PRN Administration PAIN Amlodipine Besylate 10 mg 03/25/20 10:04 03/28/20 12:13 Norvasc - PO 10 mg DAILY SHANEL Administration Atorvastatin Calcium 10 mg 03/23/20 22:00 03/27/20 21:03 Lipitor - PO 10 mg HS SHANEL Administration Gabapentin 100 mg 03/23/20 14:00 03/28/20 13:32 Neurontin - PO 100 mg TID SHANEL Administration Heparin Sodium (Porcine) 5,000 unit 03/23/20 22:00 03/28/20 13:32 Heparin - SQ 5,000 unit TID SHANEL Administration Insulin Aspart 1 vial 03/23/20 16:30 03/28/20 17:14 Novolog Vial Sliding Scale - SQ 4 units ACHS SHANEL Administration Protocol Pantoprazole Sodium 40 mg 03/24/20 10:00 03/28/20 12:13 Protonix Iv IVPUSH 40 mg DAILY SHANEL Administration Sodium Bicarbonate 1,300 mg 03/24/20 14:00 03/28/20 13:32 Sodium Bicarbonate - PO 1,300 mg TID SHANEL Administration Home Medications Medication Instructions Recorded Atorvastatin Ca [Lipitor] 10 mg PO HS 06/07/17 Doxazosin Mesylate [Cardura -] 4 mg PO DAILY 06/07/17 Insulin Detemir [Levemir Flextouch] 24 unit SQ BID 11/05/17 Gabapentin 300 mg PO TID 06/18/18 Insulin (Novolog) [Novolog -] 40 units SQ TID 04/08/19 Clotrimazole/Betamethasone Dip 15 gm TP BID 03/20/20 [Clotrimazole-Betamethasone Crm] Losartan 50Mg/Hctz 12.5MG [Hyzaar 1 tab PO DAILY 03/20/20 -] Sodium Bicarbonate - 650 mg PO BID 03/20/20 Torsemide 100 mg PO DAILY 03/20/20 Microbiology 03/21/20 21:15 Blood - Peripheral Venous Blood Culture - Final NO GROWTH AFTER 5 DAYS INCUBATION 03/21/20 21:00 Blood - Peripheral Venous Blood Culture - Final NO GROWTH AFTER 5 DAYS INCUBATION 03/20/20 12:01 Urine - Urostomy Bag Urine Culture - Final Contaminated: Please Repeat EKn 03/22/2020, Sinus rhythm with 1st degree AV block, LAD, Left ventricular hyprtrophy with QRS widening, QRS duration has increased, T-wave inversion now evident in inferior leads, T-wave inversion no longer evident in lateral leads. Duplex of LEs: No DVT ECHO: left ventricle in Nl in size, moderate concentric LVH, EJF;65% , Trace TR, mild aortic root dilatation, mild dilated Ascending aorta. ASSESSMENT AND PLAN: This patient is a 69yom with PMHx of HTN, HLD, DM, CVA x2 with residual ataxia, MARLON, COPD on home O2, CKD, bladder carcinoma s/p cystectomy with urostomy who presents with SOB, HOLLY, and bilateral lower leg pain is admitted for acute renal failure with worsening metabolic acidosis, now resolving. Patient is s/p cardiac arrest, shockable rhythm (vfib) & defibrillation on 03/22 w/ ROSC. #s/p Extubation due to having Cardiac arrest with intubation on 03/22/2020 due to VFIB with Rosc achieved, s/p defibrillation s/p pressors off all pressors now will get cardio to see the patient. EKG new T wave inversion and widening QRS #Acute metabolic acidosis on po NAHco3, s/p Bicarb drip #MEKA on CKD (stage 4), baseline Cr ~3 (2.7 today), nephro is on the case , Dr Forbes #Acute UTI s/p IV rocephin #LE edema : duplex negative for DVT #COPD: stable continue home Symbicort and Duoneb #HTN: on amlodipine 5mg daily, titrate to goal of 130/80 #T2DM: on BGMs with SS scale with coverage DVT PPX: heparin sq stress test negative, will discuss with cardio in terms of dc planning
--- NOTE | 2020-03-28 19:23 | CONS ---
DATE OF CONSULTATION: DATE OF DICTATION: 03/28/2020 INFECTIOUS DISEASE CONSULTATION HISTORY OF PRESENT ILLNESS: This is a 69-year-old man who was originally admitted on March 19 with shortness of breath and leg swelling, he was found to be in acute renal failure. He has a history of chronic kidney disease stage 4. He subsequently on March 22, he had a cardiac arrest. He was intubated and extubated the same day. He was given Rocephin and Zithromax for about 48 hours, and it was discontinued. He has been afebrile through his entire admission. We are asked to see him, because after he was extubated he noted some discomfort at the back of his head which has continued, and his primary team is concerned he may have a cellulitis. His cardiac arrest per the note was noted to be pulseless from which he was successfully resuscitated. He notes discomfort has been gradually improving over the last several days. PAST MEDICAL HISTORY: Notable for hypertension, hyperlipidemia, CHF, obstructive sleep apnea, COPD. He has had 2 CVAs in the past, and he has stage 4 CKD. He has had a knee replacement in the past, and a cystectomy with urethral diversion ileal conduit as well. FAMILY HISTORY: His parents have had diabetes. SOCIAL HISTORY: He has a remote history of smoking. No alcohol or substance use. 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 He lives alone, and his brother lives nearby. ALLERGIES: He is allergic to SHRIMP. He has now been in the hospital since March 19. MEDICATION: His medications currently include: 1. Norvasc. 2. Lipitor. 3. Neurontin. 4. Subcutaneous heparin. 5. Insulin. 6. Protonix. 7. Sodium bicarbonate. REVIEW OF SYSTEMS: He has no fevers or chills. No chest pain. He is feeling well and the discomfort at the back of his head has improved. PHYSICAL EXAMINATION: HEENT: Normocephalic. Eyes are anicteric. He has in the back of his head what looks like with possibly the strap for his ET tube was causing his back of his head. He has no fluctuance, there is no erythema, there is perhaps some induration. Neck: Supple. Lungs: Clear to auscultation. Heart: Regular rate and rhythm. Abdomen: Soft, nontender. Extremities: Trace edema. LABORATORY: White count is 6.1, hemoglobin 9.8, platelets of 189. His BUN and creatinine are 48 and 2.7. His COVID PCR is negative. Blood cultures done on the 2nd are all negative. IMPRESSION: In summary, this is a 69-year-old man who I suspect has discomfort at the back of his neck after he was extubated. I suspect that this is self- resolving and due to probably physical trauma from some sort of device. His white count is normal. He has no fever. He reports gradual improvement. I would get a sonogram to rule out a collection and would consider a CAT scan if his symptoms persist. MEGHAN MACK M.D. JOSE [id number] NEW
[2020-03-28] MEDS ORDERED: INSULIN (NOVOLOG) ASPART 100 UNITS/ML 10ML VIAL ONE (22:26)
[2020-03-28] MEDS: ATORVASTATIN CA 10 MG TABLET (FP) PO SCH (22:27)
[2020-03-29] MEDS: SODIUM BICARBONATE 650 MG TABLET PO SCH ×2 (06:32→14:18)
[2020-03-29] MEDS: HEPARIN NA (PORCINE) 5,000 UNITS/ML 1ML VIAL SQ SCH ×2 (06:33→14:18)
[2020-03-29] MEDS: GABAPENTIN 100 MG CAPSULE PO SCH ×2 (06:33→14:18)
[2020-03-29] MEDS: INSULIN SLIDING SCALE (NOVOLOG) 1 VIAL SQ SCH ×3 (06:33→16:51)
[2020-03-29] MEDS ORDERED: INSULIN (NOVOLOG) ASPART 100 UNITS/ML 10ML VIAL ONE ×2 (06:38→11:28)
[2020-03-29 07:40] LABS: BASO % 0.5 % (0-2.0); EOS % 4.7 % (0-4.5); HEMATOCRIT 33.2 % (35.4-49); LYMPH % 13.2 % (8-40); MCH 27.7 pg (25.7-33.7); MCHC 33.2 g/dl (32.0-35.9); MEAN CELL VOLUME 83.3 fl (80-96); MEAN PLT VOLUME 8.3 fl (7.5-11.1); MONO % 7.6 % (3.8-10.2); PLATELET COUNT 220 K/MM3 (134-434); RBC 3.99 M/mm3 (4.00-5.60); RDW 14.1 % (11.9-15.9); WHITE BLOOD COUNT 7.6 K/mm3 (4.0-10.0)
[2020-03-29 07:52] LABS: ALBUMIN 3.2 g/dl (3.4-5.0); BILIRUBIN,TOTAL 0.4 mg/dL (0.2-1); BLOOD UREA NITROGEN 45.8 mg/dL (7-18); CALCIUM 8.7 mg/dL (8.5-10.1); CREATININE 2.8 mg/dL (0.55-1.3); MAGNESIUM 1.8 mg/dL (1.8-2.4); PHOSPHOROUS 2.6 mg/dL (2.5-4.9); POTASSIUM 4.6 mmol/L (3.5-5.1)
[2020-03-29] MEDS: amLODIPine BESYLATE 10 MG TABLET (FP) PO SCH (10:01)
[2020-03-29] MEDS: PANTOPRAZOLE SODIUM 40 MG VIAL IVPUSH SCH (10:01)
--- NOTE | 2020-03-29 11:54 | PN ---
Progress Note (short form) - Note Progress Note: cc: cardiac arrest s: no chest pain, palps, dizziness, dyspnea Current Medications Generic Name Dose Route Start Last Admin Trade Name Osvaldo PRN Reason Stop Dose Admin Acetaminophen 650 mg 03/24/20 20:53 03/26/20 06:03 Tylenol - PO 650 mg Q4H PRN Administration PAIN Amlodipine Besylate 10 mg 03/25/20 10:04 03/29/20 10:01 Norvasc - PO 10 mg DAILY SHANEL Administration Atorvastatin Calcium 10 mg 03/23/20 22:00 03/28/20 22:27 Lipitor - PO 10 mg HS SHANEL Administration Gabapentin 100 mg 03/23/20 14:00 03/29/20 06:33 Neurontin - PO 100 mg TID SHANEL Administration Heparin Sodium (Porcine) 5,000 unit 03/23/20 22:00 03/29/20 06:33 Heparin - SQ 5,000 unit TID SHANEL Administration Insulin Aspart 1 vial 03/23/20 16:30 03/29/20 11:33 Novolog Vial Sliding Scale - SQ 4 units ACHS SHANEL Administration Protocol Pantoprazole Sodium 40 mg 03/24/20 10:00 03/29/20 10:01 Protonix Iv IVPUSH 40 mg DAILY SHANEL Administration Sodium Bicarbonate 1,300 mg 03/24/20 14:00 03/29/20 06:32 Sodium Bicarbonate - PO 1,300 mg TID SHANEL Administration Vital Signs Period Temp Pulse Resp BP Sys/Argueta Pulse Ox Last 24 Hr 97.9 F-98.7 F 64-101 20-20 135-151/69-89 97-98 Constitutional: Yes: No Distress, Calm Eyes: Yes: Conjunctiva Clear, EOM Intact HENT: Yes: Atraumatic, Normocephalic Neck: Yes: Supple, Trachea Midline Respiratory: Yes: Regular, CTA Bilaterally Gastrointestinal: Yes: Normal Bowel Sounds, Soft Cardiovascular: Yes: Regular Rate and Rhythm JVD: No Carotid Bruit: No Musculoskeletal: No: Back Pain Extremities: No: Cold Edema: No Integumentary: No: Jaundice Neurological: Yes: Alert, Oriented Psychiatric: No: Agitated CBC, BMP 03/29/20 07:00 03/29/20 06:00 Assessment/Plan EKG: sinus, first deg AV block, LAD, LVH, IVCD echo 03/2020 nl LV function, mod conc LVH, EF 65%, mild ao root dilation, mildly dilated ascending aorta tele: sinus 69M h/o HTN, HLD, DM, CVA, COPD on home O2, CKD here with MEKA, metabolic acidosis s/p vfib arrest ventricular fibrillation, cardiac arrest - cardiac arrest on 03/22 - has been off pressors, amiodarone - no further arrhythmia episodes noted on tele - was likely in setting of metabolic acidosis - trop on 03/22 mildly elevated may be in setting of CPR, cardiac arrest - echo and mibi here both unremarkable MEKA on CKD stage 4, metabolic acidosis - manage per renal UTI - manage per primary COPD - manage per primary HTN - cont current meds DM - manage per primary dilated aortic root, ascending aorta - BP control - outpatient follow up cardiac marie stable for dc
--- NOTE | 2020-03-29 12:46 | PN ---
Progress Note, Physician Chief Complaint: Leg pain and weakness History of Present Illness: Seen and examined in the ICU awake and alert offers no acute complaints denies any sob, cp, fever, chills, abd pain making urine via cystostomy s/p stress test yesterday - Current Medication List Current Medications: Active Medications Acetaminophen (Tylenol -) 650 mg PO Q4H PRN PRN Reason: PAIN Last Admin: 03/26/20 06:03 Dose: 650 mg Documented by: Amlodipine Besylate (Norvasc -) 10 mg PO DAILY [facility] Last Admin: 03/29/20 10:01 Dose: 10 mg Documented by: Atorvastatin Calcium (Lipitor -) 10 mg PO HS [facility] Last Admin: 03/28/20 22:27 Dose: 10 mg Documented by: Gabapentin (Neurontin -) 100 mg PO TID [facility] Last Admin: 03/29/20 06:33 Dose: 100 mg Documented by: Heparin Sodium (Porcine) (Heparin -) 5,000 unit SQ TID [facility] Last Admin: 03/29/20 06:33 Dose: 5,000 unit Documented by: Insulin Aspart (Novolog Vial Sliding Scale -) 1 vial SQ [facility]; Protocol Last Admin: 03/29/20 11:33 Dose: 4 units Documented by: Pantoprazole Sodium (Protonix Iv) 40 mg IVPUSH DAILY [facility] Last Admin: 03/29/20 10:01 Dose: 40 mg Documented by: Sodium Bicarbonate (Sodium Bicarbonate -) 1,300 mg PO TID [facility] Last Admin: 03/29/20 06:32 Dose: 1,300 mg Documented by: - Objective Vital Signs: Vital Signs Temperature 97.9 F 03/29/20 09:58 Pulse Rate 64 03/29/20 09:58 Respiratory Rate 20 03/29/20 09:58 Blood Pressure 143/76 03/29/20 09:58 O2 Sat by Pulse Oximetry (%) 98 03/29/20 09:58 Constitutional: Yes: No Distress, Calm Eyes: Yes: Conjunctiva Clear HENT: Yes: Atraumatic Neck: Yes: Supple Cardiovascular: Yes: Regular Rate and Rhythm Respiratory: Yes: Regular, CTA Bilaterally Gastrointestinal: Yes: Soft. No: Tenderness Extremities: No: Cold, Cool, Cyanosis Edema: Yes Edema: LLE: Trace, RLE: Trace Peripheral Pulses WNL: No Neurological: Yes: Alert Labs: CBC, BMP 03/29/20 07:00 03/29/20 06:00 INR, PTT INR 0.97 (0.83-1.09) 03/19/20 19:00 Assessment/Plan 69 year old gentleman with pmhx of htn, ckd, hld, lana, cva, dm, copd, bladder cancer s/p cystectomy who presents with fatigue, weakness and progressive lower ext pain. 1. Acute kidney injury on CKD 2. CKD stage 4 3. Metabolic acidosis from renal failure +Ileal conduit 4. Hyperkalemia 5. Anemia in CKD 6. Hypertension 7. Dyspnea w/o evidence of PNA/CHF 8. V-fib arrest 9. Neck pain/muscle spasm Renal function stable at baseline. Acidosis improved, goal bicarb > 22 Clinically stable. Continue oral sodium bicarb 1300mg TID There is no acute indication for renal replacement therapy. blood cultures negative Continue amlodipine to 10mg daily Trend renal function and electrolytes daily stress test w/o evidence of acute ischemia discharge planning as per primary team. upon discharge can follow up with Dr. Mariangel Malcolm. Thank you Freddie Forbes DO
--- NOTE | 2020-03-29 13:18 | DS ---
Physical Exam: SUBJECTIVE: Patient seen and examined at bedside. No acute events reported overnight. This morning, patient has no concerns or complaints. OBJECTIVE: Vital Signs Period Temp Pulse Resp BP Sys/Argueta Pulse Ox Last 24 Hr 97.9 F-98.7 F 64-101 20-20 135-151/69-89 97-98 PHYSICAL EXAM GENERAL: AAOx3. No acute destress HEENT: NCAT, PERRLA, EOMI, sclera anicteric, conjunctiva clear, oropharynx clear w/o exudates. MMM. NECK: Normal ROM, supple, no lymphadenopathy, JVD. Cellulitis on the right posterior neck that. LUNGS: CTABL no wheezes/ rhonchi/ rales. No distress, speaks in full sentences. No increased work of breathing. HEART: RRR, normal S1 S2, no M/R/G, peripheral pulses 2+ and equal b/l ABDOMEN: Soft, NTND, + BS. No guarding or rebound. No hepatomegaly or splenome calin. MSK: ROM WNL EXTREMITIES: Normal inspection. No peripheral edema. No clubbing or cyanosis. NEUROLOGICAL: CN II-XII intact. Normal speech, normal gait, no focal sensorimotor deficits. SKIN: Warm, Dry, normal turgor, no rashes or lesions noted LABS Laboratory Results - last 24 hr CBC, BMP 03/29/20 07:00 03/29/20 06:00 03/28/20 03/28/20 03/29/20 16:40 22:24 06:00 WBC RBC Hgb Hct MCV MCH MCHC RDW Plt Count MPV Absolute Neuts (auto) Neutrophils % Lymphocytes % Monocytes % Eosinophils % Basophils % Nucleated RBC % Sodium 138 Potassium 4.6 Chloride 109 H Carbon Dioxide 20 L Anion Gap 8 BUN 45.8 H Creatinine 2.8 H Est GFR (CKD-EPI)AfAm 25.16 Est GFR (CKD-EPI)NonAf 21.71 POC Glucometer 216 266 Random Glucose 219 H Calcium 8.7 Phosphorus 2.6 Magnesium 1.8 Total Bilirubin 0.4 AST 54 H ALT 76 H Alkaline Phosphatase 59 Total Protein 7.0 Albumin 3.2 L 03/29/20 03/29/20 03/29/20 06:30 07:00 11:33 WBC 7.6 RBC 3.99 L Hgb 11.0 L Hct 33.2 L MCV 83.3 MCH 27.7 MCHC 33.2 RDW 14.1 Plt Count 220 MPV 8.3 Absolute Neuts (auto) 5.7 Neutrophils % 74.0 Lymphocytes % 13.2 Monocytes % 7.6 Eosinophils % 4.7 H Basophils % 0.5 Nucleated RBC % 0 Sodium Potassium Chloride Carbon Dioxide Anion Gap BUN Creatinine Est GFR (CKD-EPI)AfAm Est GFR (CKD-EPI)NonAf POC Glucometer 208 249 Random Glucose Calcium Phosphorus Magnesium Total Bilirubin AST ALT Alkaline Phosphatase Total Protein Albumin HOSPITAL COURSE: 69 y.o .M PMH HTN, HLD, DM, CVA x2 with residual ataxia, MARLON, COPD on home O2, CKD, bladder carcinoma s/p cystectomy with urostomy who presents with SOB, HOLLY, and bilateral lower leg pain. Admitted for acute renal failure and worsening metabolic acidosis, now resolving. Patient is s/p cardiac arrest, shockable rhythm (vfib) & defibrillation on 03/22 w/ ROSC. Patient was started on a bicarb drip upon initial admission but eventually was switched to oral 1300 MG NaHCO3 TID once his acidosis improved. Patient refused dialysis so was managed with bicarb throughout his stay. Dr. Forbes followed the patient throughout his stay. Patient had an an episode of cardiac arrest during his stay where he had to be defibrillated and was intubated requiring pressors. He was later extubated and remained off of pressors but remained on telemetry monitoring. Patient was consulted by cardiology and had a stress test done on 03/28/20. Patient also had a UTI during his stay which responded to Rocephin. Patient also initially presented with LE edema which resolved with the bicarb. A b/l LE ultrasound was negative for a DVT. Patient was also started on 10 mg amlodipine for his hypertension by Dr. Forbes. Patient was discharged with renal and cardiology followup recommendations. Date of Admission:03/19/20 03/19/20- CXR-A single view of the chest is been submitted. Since 10/24/2019 the patient is slightly more rotated to the left with a slightly weaker inspiration with resultant large heart and central crowding. An acute chest process is not seen. The left angle is not fully visualized. The right angle is sharp. There are degenerative spine changes. Correlation recommended. 03/19/20-sinus rhythm with 1st degree AV block. Possible left atrial enlargement. LAD. LVH 03/19/20-Duplex Vascular US-No DVT is identified involving either leg. 03/20/20-Renal US-Significantly limited exam. Within the limitations of the exam no gross abnormality seen in the right or left kidneys although subtle underlying abnormalities cannot be excluded. 03/22/2030-YJ[facility]-Sflpse view of the chest has been submitted. Since the earlier study of 03/19/2020 at 2049 hours, an endotracheal tube has been inserted and the tip is well above the linsey. There is a weak inspirat ion with clear right lung and some atelectasis or infiltrate with fluid at the left base. There is a prominent mediastinum. There is rotation to the left with arthritic changes. Correlation and follow- up recommended. 03/28/20-stress test- EXERCISE RESULTS: Baseline ECG:Sinus rhythm with non- specific T wave abnormalities. Stress ECG: No ischemic changes. No arrhythmias. NUCLEAR RESULTS: Normal perfusion. There is no evidence of vasodilator induced myocardial ischemia. LVEF 79%. Date of Discharge: 03/29/20 Minutes to complete discharge: 36 Discharge Summary Problems reviewed: Yes Reason For Visit: SWELLING OF BOTH LOWER EXTREMITIES,ANGINA PECTORIS Current Active Problems Acute on chronic kidney failure (Acute) Angina pectoris, unspecified (Acute) Shortness of breath (Acute) Swelling of both lower extremities (Acute) Condition: Stable - Instructions Diet, Activity, Other Instructions: Your visit: You were admitted to the hospital for leg swelling and shortness of breath. You were found to have abnormal blood tests and that your kidney function was low. You were treated with medications and fluids with improvement of your symptoms. During your visit, you had a cardiac arrest , you were tubed and extubated successfully. Additional Imaging Findings: During your stay, we did an x-ray of your chest which showed arthritic changes. Please follow-up with your Primary Care Provider about this. During your stay, we did an EKG of your heart which showed an abnormal heart rhythm. Please follow up with your technical marketing consultant about this. Medications changes: -PLEASE STOP TAKING LOSARTAN. We discontinued this medication for you because of your kidneys. -Please continue to take oral sodium bicarb tablets (1300mg each) three times per day. -Please take the blood pressure medicine, Amlodipine 10 MG ONCE A DAY. -Continue to take all other home medications as prescribed. Follow up: - Please follow-up with your storage receipt poster, Dr. Kirkland in 1 week. -Please follow-up with your technical marketing consultant, Dr. Burden, in 1 week to follow up on the results of your heart test. - Visit with your Primary Care Provider, Dr. Howard in 2 weeks. Additional Instructions: -You are being discharged to your home. -Please return to the Emergency Department if you experience worsening pain, fevers, chills, shortness of breath, or chest pain, or if you experience any worsening, new or concerning symptoms. Referrals: Izzy Burden MD [Staff Physician] - 1 Week Mariangel Kirkland MD [Staff Physician] - 2 Weeks Umang Howard MD [Primary Care Provider] - 2 Weeks Disposition: HOME - Home Medications Comprehensive Discharge Medication List: Ambulatory Orders Atorvastatin Ca [Lipitor] 10 mg PO HS 06/07/17 Doxazosin Mesylate [Cardura -] 4 mg PO DAILY 06/07/17 Insulin Detemir [Levemir Flextouch] 24 unit SQ BID 11/05/17 Gabapentin 300 mg PO TID 06/18/18 Insulin (Novolog) [Novolog -] 40 units SQ TID 04/08/19 Clotrimazole/Betamethasone Dip [Clotrimazole-Betamethasone Crm] 15 gm TP BID 03/20/20 Torsemide 100 mg PO DAILY 03/20/20 Amlodipine Besylate [Norvasc -] 10 mg PO DAILY #30 tablet 03/29/20 Sodium Bicarbonate - 1,300 mg PO TID 30 Days #90 tablet 03/29/20 This patient is new to me today: No Emergency Visit: No Critical Care patient: No - Discharge Referral Referred to [facility] No ATTENDING PHYSICIAN STATEMENT I saw and evaluated the patient. I reviewed the resident's note and discussed the case with the resident. I agree with the resident's findings and plan as documented. SUBJECTIVE: OBJECTIVE: ASSESSMENT AND PLAN:
--- NOTE | 2020-03-29 15:55 | PN ---
Teaching Attending Note Name of Resident: Godwin Vallejo ATTENDING PHYSICIAN STATEMENT I saw and evaluated the patient. I reviewed the resident's note and discussed the case with the resident. I agree with the resident's findings and plan as documented. SUBJECTIVE: OBJECTIVE: Vital Signs Temperature 98.0 F 03/29/20 15:09 Pulse Rate 73 03/29/20 15:09 Respiratory Rate 20 03/29/20 15:09 Blood Pressure 150/89 03/29/20 15:09 O2 Sat by Pulse Oximetry (%) 98 03/29/20 09:58 PE: per resident's note + chronic urostomy bag CBCD WBC 7.6 K/mm3 (4.0-10.0) 03/29/20 07:00 RBC 3.99 M/mm3 (4.00-5.60) L 03/29/20 07:00 Hgb 11.0 GM/dL (11.7-16.9) L 03/29/20 07:00 Hct 33.2 % (35.4-49) L 03/29/20 07:00 MCV 83.3 fl (80-96) 03/29/20 07:00 MCHC 33.2 g/dl (32.0-35.9) 03/29/20 07:00 RDW 14.1 % (11.9-15.9) 03/29/20 07:00 Plt Count 220 K/MM3 (134-434) 03/29/20 07:00 MPV 8.3 fl (7.5-11.1) 03/29/20 07:00 CMP Sodium 138 mmol/L (136-145) 03/29/20 06:00 Potassium 4.6 mmol/L (3.5-5.1) 03/29/20 06:00 Chloride 109 mmol/L (98-107) H 03/29/20 06:00 Carbon Dioxide 20 mmol/L (21-32) L 03/29/20 06:00 Anion Gap 8 MMOL/L (8-16) 03/29/20 06:00 BUN 45.8 mg/dL (7-18) H 03/29/20 06:00 Creatinine 2.8 mg/dL (0.55-1.3) H 03/29/20 06:00 Random Glucose 219 mg/dL (74-106) H 03/29/20 06:00 Calcium 8.7 mg/dL (8.5-10.1) 03/29/20 06:00 Total Bilirubin 0.4 mg/dL (0.2-1) 03/29/20 06:00 AST 54 U/L (15-37) H 03/29/20 06:00 ALT 76 U/L (13-61) H 03/29/20 06:00 Alkaline Phosphatase 59 U/L (45-117) 03/29/20 06:00 Total Protein 7.0 g/dl (6.4-8.2) 03/29/20 06:00 Albumin 3.2 g/dl (3.4-5.0) L 03/29/20 06:00 CARDIAC ENZYMES Creatine Kinase 420 U/L (26-308) H 03/23/20 03:00 Troponin I 0.44 ng/ml (0.00-0.05) H 03/23/20 03:00 Current Medications Generic Name Dose Route Start Last Admin Trade Name Freq PRN Reason Stop Dose Admin Acetaminophen 650 mg 03/24/20 20:53 03/26/20 06:03 Tylenol - PO 650 mg Q4H PRN Administration PAIN Amlodipine Besylate 10 mg 03/25/20 10:04 03/29/20 10:01 Norvasc - PO 10 mg DAILY SHANEL Administration Atorvastatin Calcium 10 mg 03/23/20 22:00 03/28/20 22:27 Lipitor - PO 10 mg HS SHANEL Administration Gabapentin 100 mg 03/23/20 14:00 03/29/20 14:18 Neurontin - PO 100 mg TID SHANEL Administration Heparin Sodium (Porcine) 5,000 unit 03/23/20 22:00 03/29/20 14:18 Heparin - SQ 5,000 unit TID SHANEL Administration Insulin Aspart 1 vial 03/23/20 16:30 03/29/20 11:33 Novolog Vial Sliding Scale - SQ 4 units ACHS SHANEL Administration Protocol Pantoprazole Sodium 40 mg 03/24/20 10:00 03/29/20 10:01 Protonix Iv IVPUSH 40 mg DAILY SHANEL Administration Sodium Bicarbonate 1,300 mg 03/24/20 14:00 03/29/20 14:18 Sodium Bicarbonate - PO 1,300 mg TID SHANEL Administration Home Medications Medication Instructions Recorded Atorvastatin Ca [Lipitor] 10 mg PO HS 06/07/17 Doxazosin Mesylate [Cardura -] 4 mg PO DAILY 06/07/17 Insulin Detemir [Levemir Flextouch] 24 unit SQ BID 11/05/17 Gabapentin 300 mg PO TID 06/18/18 Insulin (Novolog) [Novolog -] 40 units SQ TID 04/08/19 Clotrimazole/Betamethasone Dip 15 gm TP BID 03/20/20 [Clotrimazole-Betamethasone Crm] Torsemide 100 mg PO DAILY 03/20/20 Amlodipine Besylate [Norvasc -] 10 mg PO DAILY #30 tablet 03/29/20 Sodium Bicarbonate - 1,300 mg PO TID 30 Days #90 tablet 03/29/20 Microbiology 03/21/20 21:15 Blood - Peripheral Venous Blood Culture - Final NO GROWTH AFTER 5 DAYS INCUBATION 03/21/20 21:00 Blood - Peripheral Venous Blood Culture - Final NO GROWTH AFTER 5 DAYS INCUBATION 03/20/20 12:01 Urine - Urostomy Bag Urine Culture - Final Contaminated: Please Repeat EKn 03/22/2020, Sinus rhythm with 1st degree AV block, LAD, Left ventricular hyprtrophy with QRS widening, QRS duration has increased, T-wave inversion now evident in inferior leads, T-wave inversion no longer evident in lateral leads. Duplex of LEs: No DVT ECHO: left ventricle in Nl in size, moderate concentric LVH, EJF;65% , Trace TR, mild aortic root dilatation, mild dilated Ascending aorta. ASSESSMENT AND PLAN: This patient is a 69yom with PMHx of HTN, HLD, DM, CVA x2 with residual ataxia, MARLON, COPD on home O2, CKD, bladder carcinoma s/p cystectomy with urostomy who presents with SOB, HOLLY, and bilateral lower leg pain is admitted for acute renal failure with worsening metabolic acidosis, now resolving. Patient is s/p cardiac arrest, shockable rhythm (vfib) & defibrillation on 03/22 w/ ROSC. #s/p Extubation due to having Cardiac arrest with intubation on 03/22/2020 due to VFIB with Rosc achieved, s/p defibrillation s/p pressors off all pressors now will get cardio to see the patient. EKG new T wave inversion and widening QRS, s/p stress test with negative result. follow up with cardio within a week period #Acute metabolic acidosis on po NAHco3, s/p Bicarb drip #EMKA on CKD (stage 4), baseline Cr ~3 (2.7 today), nephro is on the case , Dr Forbes , follow up with nephro #Acute UTI s/p IV rocephin #LE edema : duplex negative for DVT #COPD: stable continue home Symbicort and Duoneb #HTN: on amlodipine 5mg daily, titrate to goal of 130/80 #T2DM: on BGMs with SS scale with coverage DVT PPX: heparin sq stress test negative, as per cardio patient can be discharged home.
[2020-03-29 18:49] VITALS: BP 147/83; PULSE 72; TEMP 97.9
== END 2020-03-29 20:25 | disposition home or self-care (01) | DRG 682 ==
LOC: JER 17:48 → JERBED 22:37 → J4S 03-20 23:04 → JICU 03-22 05:01 → J4W 03-28 01:19
PROVIDERS: ADMIT Internal Medicine; ATTEND Internal Medicine
PROC: 0BH17EZ Insertion of Endotracheal Airway into Trachea, Via Natural or Artificial Opening (ICD-10-PCS; principal; 2020-03-22)
PROC: 5A1935Z Respiratory Ventilation, Less than 24 Consecutive Hours (ICD-10-PCS; 2020-03-22)
PROC: 5A2204Z Restoration of Cardiac Rhythm, Single (ICD-10-PCS; 2020-03-22)
DX: N17.9 Acute kidney failure, unspecified (principal); I46.9 Cardiac arrest, cause unspecified; I49.01 Ventricular fibrillation; Z68.41 Body mass index [BMI] 40.0-44.9, adult; J98.11 Atelectasis; J96.11 Chronic respiratory failure with hypoxia; I24.8 Other forms of acute ischemic heart disease; E87.2 Acidosis; N39.0 Urinary tract infection, site not specified; R57.9 Shock, unspecified; E78.5 Hyperlipidemia, unspecified; J44.9 Chronic obstructive pulmonary disease, unspecified; I44.0 Atrioventricular block, first degree; G47.33 Obstructive sleep apnea (adult) (pediatric); E87.5 Hyperkalemia; M79.89 Other specified soft tissue disorders; E87.6 Hypokalemia; M54.2 Cervicalgia; I77.819 Aortic ectasia, unspecified site; M62.838 Other muscle spasm; I12.9 Hypertensive chronic kidney disease with stage 1 through stage 4 chronic kidney disease, or unspecified chronic kidney disease; E11.22 Type 2 diabetes mellitus with diabetic chronic kidney disease; N18.4 Chronic kidney disease, stage 4 (severe); D63.8 Anemia in other chronic diseases classified elsewhere; I69.393 Ataxia following cerebral infarction; Z99.81 Dependence on supplemental oxygen; E66.01 Morbid (severe) obesity due to excess calories; Z93.6 Other artificial openings of urinary tract status; Z85.51 Personal history of malignant neoplasm of bladder
CPT/HCPCS: 36415; 36600; 71045-TC-FY; 76536-TC; 76775-TC; 78452-TC; 80048; 80053; 81003; 82550; 82553; 82803; 82962; 83605; 83735; 83880; 83970; 84100; 84484; 85025; 85027; 85610; 85730; 87040; 87086; 93005; 93010; 93017; 93306-TC; 93970-TC; 94002; 97116-GP; 97161-GP; 99285-25; A9502; J1644; J2785; U0003

== ENCOUNTER 2020-04-23 08:41 | Emergency (ER) | payer OTHER ==
[2020-04-23 08:48] VITALS: TEMP 98.5; BMI 43.4
--- NOTE | 2020-04-23 09:06 | PDOC ---
History of Present Illness - General History Source: Patient Exam Limitations: No Limitations <Ashley Sprague - Last Filed: 04/23/20 13:23> <Nathan Womack - Last Filed: 04/23/20 15:44> - General Chief Complaint: Head/Neck problem Stated Complaint: NUMBNESS OF HEAD Time Seen by Provider: 04/23/20 08:53 Past History - Travel History Traveled outside of the country in the last 30 days: No Close contact w/someone who was outside of country & ill: No - Medical History Anemia: No Asthma: No Cancer: Yes (BLADDER CA W/REMOVAL AND UROSTOMY) Cardiac Disorders: No ([facility]ASH AT [facility]) CVA: Yes (TIA 2013) COPD: Yes CHF: No Dementia: No Diabetes: Yes Dialysis: No GI Disorders: No Disorders: Yes HTN: Yes Hypercholesterolemia: Yes Liver Disease: No Seizures: No Thyroid Disease: No - Surgical History Abdominal Surgery: Yes (BLADDER REMOVED 05/2014 -UROSTOMY) Appendectomy: No Cardiac Surgery: No Cholecystectomy: No Lung Surgery: No Neurologic Surgery: No Orthopedic Surgery: Yes (left knee sx) - Immunization History Immunization Up to Date: Yes (FLU AND PNA UP TO DATE) - Psycho-Social/Smoking History Smoking Status: No Smoking History: Former smoker Have you smoked in the past 12 months: No If you are a former smoker, when did you quit?: 30 yrs ago Information on smoking cessation initiated: No - Substance Abuse Hx (Audit-C & DAST Scrn) How often the patient has a drink containing alcohol: Never Score: In Men: 4 or > Positive; In Women: 3 or > Positive: 0 Screen Result (Pos requires Nsg. Audit-10AR): Negative In the last yr the pt used illegal drug/Rx for NonMed reason: No Score: Yes response is considered Positive: 0 Screen Result (Positive result requires Nsg. DAST-10): Negative <Ashley Sprague - Last Filed: 04/23/20 13:23> <Nathan Womack - Last Filed: 04/23/20 15:44> - Medical History Allergies/Adverse Reactions: Allergies Allergy/AdvReac Type Severity Reaction Status Date / Time shrimp Allergy Intermediate Vomiting Verified 04/23/20 08:44 Home Medications: Ambulatory Orders Atorvastatin Ca [Lipitor] 10 mg PO HS 06/07/17 Doxazosin Mesylate [Cardura -] 4 mg PO DAILY 06/07/17 Insulin Detemir [Levemir Flextouch] 24 unit SQ BID 11/05/17 Gabapentin 300 mg PO TID 06/18/18 Insulin (Novolog) [Novolog -] 40 units SQ TID 04/08/19 Clotrimazole/Betamethasone Dip [Clotrimazole-Betamethasone Crm] 15 gm TP BID 03/20/20 Torsemide 100 mg PO DAILY 03/20/20 Amlodipine Besylate [Norvasc -] 10 mg PO DAILY #30 tablet 03/29/20 Sodium Bicarbonate - 1,300 mg PO TID 30 Days #90 tablet 03/29/20 Review of Systems - Review of Systems Able to Perform ROS?: Yes Comments:: 04/23/20 09:04 CONSTITUTIONAL: Absent: fever, chills, diaphoresis, generalized weakness, malaise, loss of appetite HEENT: Absent: rhinorrhea, nasal congestion, throat pain, throat swelling, difficulty swallowing, mouth swelling, ear pain, eye pain, visual Changes CARDIOVASCULAR: Absent: chest pain, loss of consciousness, palpitations, irregular heart rate, peripheral edema RESPIRATORY: Absent: cough, shortness of breath, dyspnea with exertion, orthopnea, wheezing, stridor, hemoptysis GASTROINTESTINAL: Absent: abdominal pain, abdominal distension, nausea, vomiting, diarrhea, constipation, melena, hematochezia GENITOURINARY: Absent: dysuria, frequency, urgency, hesitancy, hematuria, flank pain, genital pain MUSCULOSKELETAL: Absent: myalgia, arthralgia, joint swelling SKIN: Absent: rash, itching, pallor HEMATOLOGIC/IMMUNOLOGIC: Absent: easy bleeding, easy bruising, lymphadenopathy, frequent infections ENDOCRINE: Absent: unexplained weight gain, unexplained weight loss, heat intolerance, cold intolerance NEUROLOGIC: Present: Numbness to right side of face Absent: headache, focal weakness or paresthesias, dizziness, unsteady gait, seizure, mental status changes, bladder or bowel incontinence PSYCHIATRIC: Absent: anxiety, depression, suicidal or homicidal ideation, hallucinations. Is the patient limited Cypriot proficient: No <Ashley Sprague - Last Filed: 04/23/20 13:23> *Physical Exam - Vital Signs Last Vital Signs Temp Pulse Resp BP Pulse Ox 98.5 F 78 18 126/64 100 04/23/20 08:44 04/23/20 08:44 04/23/20 08:44 04/23/20 08:44 04/23/20 08:44 - Physical Exam 04/23/20 09:04 GENERAL: Well developed, well nourished. Awake and alert. No acute distress. HEENT: Normocephalic, atraumatic. PERRLA, EOMI. No conjunctival pallor. Sclera are non- icteric. Moist mucous membranes. Oropharynx is clear. NECK: Supple. Full ROM. No lymphadenopathy. No midline tenderness, (+) spasm felt to the r paraspinous muscles CARDIOVASCULAR: Regular rate and rhythm. Distal pulses are 2+ and symmetric. PULMONARY: No evidence of respiratory distress. Breathing comfortably on RA ABDOMINAL: Soft. Non-tender. Non-distended. No rebound or guarding. No organomegaly. Normoactive bowel sounds. MUSCULOSKELETAL Normal range of motion at all joints. No bony deformities or tenderness. No CVA tenderness. EXTREMITIES: No cyanosis. No clubbing. No edema. No calf tenderness. SKIN: Warm and dry. Normal capillary refill. No rashes. No jaundice. NEUROLOGICAL: Decreased sensation to light touch to the r occipital region approximately 2aan4jo area. Alert, awake, appropriate. Cranial nerves 2-12 intact. No deficits to light touch and temperature in face, upper extremities and lower extremities. No motor deficits in the in face, upper extremities and lower extremities. Normoreflexic in the upper and lower extremities. Normal speech. Toes are down- going bilaterally. Gait is normal without ataxia. PSYCHIATRIC: Cooperative. Good eye contact. Appropriate mood and affect. <Ashley Sprague - Last Filed: 04/23/20 13:23> - Vital Signs Last Vital Signs Temp Pulse Resp BP Pulse Ox 98.5 F 89 22 H 139/89 98 04/23/20 08:44 04/23/20 13:07 04/23/20 13:07 04/23/20 13:07 04/23/20 13:07 <Nathan Womack - Last Filed: 04/23/20 15:44> Medical Decision Making - Medical Decision Making 04/23/20 10:32 Patient is a 69-year-old male with past medical history of obesity, hypertension, hyperlipidemia, DM, CVA x220 with residual ataxia, COPD on home O2, CKD stage IV, bladder CA status post urethral diversion and ileal conduit, cardiac arrest, presents to the ER today with numbness to the back of his head. He states when he was admitted previously back in March, he went into cardiac arrest and was intubated. He states that after that time he had neck pain and numbness to the back of his head. He states that his whole hand was numb at that time. He states that it is progressively been getting better, however, he was concerned that the right side of the back of his head was still little numb so he came to the ER for evaluation. Denies headache, visual changes, dizziness, nausea, lightheadedness, earache and sore throat. He also denies neck pain at this time. A/P: Numbness On exam there is a 4 cm x 4 cm area to the right occipital region that has decreased sensation on exam. Patient is otherwise in no acute distress, breathing normally. Mild spasm to the right sided cervical paraspinous muscles. Neck ultrasound from previous visit unremarkable. We will obtain head CT at this time to rule out bleed however likely residual numbness as a result of past intubation and neck spasm. Reassuring that patient symptoms have been improving over the last 3 weeks. Case discussed with Dr. Womack. 04/23/20 12:02 CT shows new hypodensity in the right frontal lobe with questionable encephalomalacia. Unable to evaluate for swelling on CT. No midline shift Page Dr. Mendoza for consult Dr. Mendoza in the OR per staff. Patient does not want to wait for consult We will have patient AMA. Patient is sober and free from distracting injury. He is able to make medical decisions for himself alert and oriented x3. He understands the risks of chec carson out including worsening clinical condition, headache, and He accepts the risk and signs AMA. 04/23/20 12:38 Call back recieved from Dr. Mendoza Discussed case, given improving clinical picture, no need for emergent MRI. Recommends out patient neuro follow up Pt made aware of consult. <Ashley Sprague - Last Filed: 04/23/20 13:23> - Medical Decision Making 04/23/20 15:44 I reviewed the case of the mid-level practitioner and was available for consultation while in the emergency department <ShantaNathan - Last Filed: 04/23/20 15:44> Discharge - Discharge Information Problems reviewed: Yes - Admission No <Ashley Sprague - Last Filed: 04/23/20 13:23> <Nathan Womack - Last Filed: 04/23/20 15:44> - Discharge Information Clinical Impression/Diagnosis: Numbness Condition: Stable Disposition: AGAINST MEDICAL ADVICE - Follow up/Referral Referrals: Ethan Mendoza MD, [facility] [Staff Physician] - - Patient Discharge Instructions Patient Printed Discharge Instructions: DI for Numbness/Tingling Additional Instructions: You were seen for the numbness on the back of your head. It is reassuring that your numbness has improved however there was an abnormality seen on your CT scan that requires follow-up with a specialist. Please call Dr. Jay's office today for an appointment. Keep the number is on the discharge papers Return to the ER immediately should your symptoms get worse, if you have lightheadedness, dizziness, headache or you have any changes in your symptoms
--- OUTSIDE RECORDS SUMMARY | 2020-04-23 09:20 | XMS ---
:1950 Author Organization [facility] Support Name Relationship Address Phone RE, RETIRED Unavailable Unavailable Unavailable RE Unavailable Unavailable [place] [address] [place] [address] Re-disclosure Warning The records that you are about to access may contain information from federally- assisted alcohol or drug abuse programs. If such information is present, then the following federally mandated warning applies: This information has been disclosed to you from records protected by federal confidentiality rules (42 CFR part 2). The federal rules prohibit you from making any further disclosure of this information unless further disclosure is expressly permitted by the written consent of the person to whom it pertains or as otherwise permitted by 42 CFR part 2. A general authorization for the release of medical or other information is NOT sufficient for this purpose. The Federal rules restrict any use of the information to criminally investigate or prosecute any alcohol or drug abuse patient.The records that you are about to access may contain highly sensitive health information, the redisclosure of which is protected by Article 27-F of the [facility] Public Health law. If you continue you may haveaccess to information: Regarding HIV / AIDS; Provided by facilities licensed or operated by the [facility] Office of Mental Health; or Provided by the [facility] Office for People With Developmental Disabilities. If such information is present, then the following [facility] mandated warning applies: This information has been disclosed to you from confidential records which are protected by state law. State law prohibits you from making any further disclosure of this information without the specific written consent of the person to whom it pertains, or as otherwise permitted by law. Any unauthorized further disclosure in violation of state law may result in a fine or alf sentence or both. A general authorization for the release of medical or other information is NOT sufficient authorization for further disclosure. Insurance Providers Payer name Policy type Policy ID Covered Covered republican's Policy P erik / Coverage republican ID relationship to Daily Inf ormation type daily HEALTH [id number] SP [id number] SOLUTIONS 30 AETNA [id number] SP [id number] MEDICARE [facility] MEDICARE [id number] SP [id number] AETNA [id number] SP [id number] MEDICARE IME MEDICARE [id number] SP [id number] HEALTH [id number] SP [id number] SOLUTIONS HEALTH [id number] SP [id number] SOLUTIONS 3 AETNA [id number] SP [id number] MEDICARE Results ID Date Data Source [id number] 03/20/2020 03:55:00 AM EDT [facility] Name Value Range Interpretation Description Data Sup porting Code Source(s) Document(s ) SARS [facility] coronavirus 2 RNA This lab was ordered by [facility] and reported by [facility]. ID Date Data Source [id number] 10/25/2019 10:35:00 AM EDT [facility] Name Value Range Interpretation Description Data Sup porting Code Source(s) Document(s ) SARS [facility] CORONAVIRUS 2 RNA This lab was ordered by [facility] and reported by [facility]. Procedure
[2020-04-23 13:08] VITALS: BP 139/89; PULSE 89
== END 2020-04-23 13:08 | disposition left against medical advice (07) ==
LOC: JER 08:41
DX: R20.2 Paresthesia of skin (principal)
CPT/HCPCS: 70450-TC; 99284-25

== ENCOUNTER → 2020-06-07 | Day surgery (SDC) | payer OTHER | END | disposition home or self-care (01) | LOC: JRADIR 08:14 | PROVIDERS: ATTEND Internal Medicine Infectious Disease | PROC: 02PY03Z Removal of Infusion Device from Great Vessel, Open Approach (ICD-10-PCS; principal; 2020-06-07) | DX: Z45.2 Encounter for adjustment and management of vascular access device (principal) | CPT/HCPCS: 36589 ==

== ENCOUNTER 2021-09-04 04:36 | Day surgery (SDC) | payer OTHER ==
[2021-09-02 13:59] VITALS: BMI 43.8
[2021-09-04] MEDS ORDERED: DEXTROSE 50%-WATER 25 GM/50 ML DISP.SYRIN IVPUSH ONE (08:37)
[2021-09-04] MEDS ORDERED: DEXTROSE 5%-0.45% SALINE 1,000 ML IV SCH (08:37)
[2021-09-04] MEDS ORDERED: DEXTROSE 50%-WATER 25 GM/50 ML DISP.SYRIN ONE (08:37)
[2021-09-04] MEDS ORDERED: LIDOCAINE HCL 1%, 10 MG/ML (20ML VIAL) ONE ×3 (09:44→10:52)
[2021-09-04] MEDS ORDERED: POVIDONE-IODINE OINTMENT 10% - 28.4 GM TUBE ONE (09:44)
[2021-09-04] MEDS ORDERED: PAPAVERINE HCL 30 MG/1 ML 10 ML VIAL NR ONE ×2 (09:44→10:52)
[2021-09-04] MEDS ORDERED: HEPARIN NA (PORCINE) 5,000 UNITS/ML 1ML VIAL ONE ×2 (09:45→10:52)
[2021-09-04] MEDS ORDERED: LIDOCAINE HCL/PF 1% SDV 5ML VIAL ONE ×2 (09:51→10:53)
[2021-09-04] MEDS ORDERED: PROPOFOL 20 ML ONE ×3 (10:10)
[2021-09-04] MEDS ORDERED: MIDAZOLAM HCL 2 MG/2 ML SINGLE DOSE VIAL ONE (10:10)
[2021-09-04] MEDS ORDERED: ceFAZolin SODIUM 1 GM VIAL IVPB ONE (10:24)
[2021-09-04] MEDS ORDERED: LIDOCAINE HCL 1%, 10 MG/ML (20ML VIAL) NR ONE (10:26)
[2021-09-04] MEDS ORDERED: HEPARIN NA (PORCINE) 5,000 UNITS/ML 1ML VIAL SQ ONE (10:32)
[2021-09-04] MEDS ORDERED: PROMETHAZINE HCL 25 MG/1 ML VIAL IVPUSH PRN (12:05)
[2021-09-04] MEDS ORDERED: oxyCODONE HCL 5 MG TABLET PO PRN (12:05)
[2021-09-04] MEDS ORDERED: ONDANSETRON 4 MG/2 ML VIAL IVPUSH PRN (12:05)
[2021-09-04] MEDS ORDERED: ACETAMINOPHEN 325 MG TABLET (FP) PO ONE (13:18)
[2021-09-04 13:49] VITALS: BP 132/67; PULSE 76; TEMP 97.4
== END 2021-09-04 14:50 | disposition home or self-care (01) ==
LOC: JASU-SURG 04:36
PROVIDERS: ATTEND Surgery
PROC: 031C0ZF Bypass Left Radial Artery to Lower Arm Vein, Open Approach (ICD-10-PCS; principal; 2021-09-04 10:00)
DX: I12.0 Hypertensive chronic kidney disease with stage 5 chronic kidney disease or end stage renal disease (principal); E11.22 Type 2 diabetes mellitus with diabetic chronic kidney disease; N18.5 Chronic kidney disease, stage 5
CPT/HCPCS: 82962; 94760; J1644

== ENCOUNTER 2022-02-03 04:31 | Day surgery (SDC) | payer OTHER ==
[2022-01-30 10:12] VITALS: BMI 45.2
[2022-02-03] MEDS ORDERED: LIDOCAINE HCL 1%, 10 MG/ML (20ML VIAL) ONE ×2 (13:43→14:48)
[2022-02-03] MEDS ORDERED: HEPARIN NA (PORCINE) 5,000 UNITS/ML 1ML VIAL ONE (13:43)
[2022-02-03] MEDS ORDERED: POVIDONE-IODINE OINTMENT 10% - 28.4 GM TUBE ONE (13:43)
[2022-02-03] MEDS ORDERED: ceFAZolin SODIUM 1 GM VIAL IVPB ONE (14:20)
[2022-02-03] MEDS ORDERED: LIDOCAINE HCL 1%, 10 MG/ML (20ML VIAL) ID ONE (15:06)
[2022-02-03] MEDS ORDERED: LIDOCAINE HCL 1%, 10 MG/ML (20ML VIAL) SQ ONE ×2 (15:06)
[2022-02-03] MEDS ORDERED: MIDAZOLAM HCL 2 MG/2 ML SINGLE DOSE VIAL ONE (15:25)
[2022-02-03] MEDS ORDERED: ONDANSETRON 4 MG/2 ML VIAL IVPUSH PRN (17:14)
[2022-02-03] MEDS ORDERED: oxyCODONE HCL 5 MG TABLET PO PRN (17:14)
[2022-02-03 19:20] VITALS: BP 123/62; PULSE 73; TEMP 97.2
== END 2022-02-03 20:08 | disposition home or self-care (01) ==
LOC: JASU-SURG 04:31
PROVIDERS: ATTEND Surgery
PROC: 031 Upper Arteries, Bypass (ICD-10-PCS; principal; 2022-02-03 14:00)
DX: E11.22 Type 2 diabetes mellitus with diabetic chronic kidney disease (principal); I12.0 Hypertensive chronic kidney disease with stage 5 chronic kidney disease or end stage renal disease; N18.6 End stage renal disease; Z79.4 Long term (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 of insulin; Z86.73 Personal history of transient ischemic attack (TIA), and cerebral infarction without residual deficits; E78.5 Hyperlipidemia, unspecified; G47.30 Sleep apnea, unspecified; Z79.82 Long term (current) use of aspirin; J44.9 Chronic obstructive pulmonary disease, unspecified
CPT/HCPCS: 82962; 94760; J1644

== ENCOUNTER 2022-02-18 08:36 | Emergency (ER) | payer OTHER ==
[2022-02-18 08:53] VITALS: TEMP 97.6; BMI 44.9
[2022-02-18 10:16] VITALS: RESP 20
[2022-02-18 10:26] LABS: BASO % 0.4 % (0-2.0); EOS % 5.6 % (0-4.5); HEMATOCRIT 31.4 % (35.4-49); HEMOGLOBIN 10.7 GM/dL (11.7-16.9); LYMPH % 7.2 % (8-40); MCH 27.4 pg (25.7-33.7); MCHC 33.9 g/dl (32.0-35.9); MEAN CELL VOLUME 80.8 fl (80-96); MEAN PLT VOLUME 7.5 fl (7.5-11.1); MONO % 6.4 % (3.8-10.2); NEUT % 80.4 % (42.8-82.8); PLATELET COUNT 256 10^3/uL (134-434); RBC 3.89 M/mm3 (4.00-5.60); RDW 15.7 % (11.9-15.9)
[2022-02-18 10:51] LABS: CHLORIDE 102 mmol/L (98-107); SODIUM 133 mmol/L (136-145)
[2022-02-18] MEDS ORDERED: PIPERACILLIN/TAZOB 3.375 GM 3.375 GM in DEXTROSE 5%-WATER - 50 ML IVPB ONE ×2 (10:51→12:04)
[2022-02-18] MEDS ORDERED: VANCOMYCIN 1 GM in D5W (PRE-DOCKED) 1,000 MG/250 ML IVPB ONE ×2 (10:51→12:04)
[2022-02-18 10:55] LABS: ALBUMIN 3.3 g/dl (3.4-5.0); ANION GAP 13 MMOL/L (8-16); CO2 18 mmol/L (21-32)
[2022-02-18 10:57] LABS: CREATININE 3.8 mg/dL (0.55-1.3); SGPT/ALT 24 U/L (13-61)
[2022-02-18 10:58] LABS: SGOT/AST 15 U/L (15-37)
[2022-02-18 10:59] LABS: BILIRUBIN,TOTAL 0.5 mg/dL (0.2-1); TOT PROT 6.9 g/dl (6.4-8.2)
[2022-02-18 11:00] LABS: ALK PHOS 63 U/L (45-117)
[2022-02-18 11:03] LABS: BLOOD UREA NITROGEN 110.1 mg/dL (7-18); GLUCOSE,RANDOM 401 mg/dL (74-106)
[2022-02-18 11:06] LABS: INR 1.12 (0.83-1.09); PROTHROMBIN TIME (PATIENT) 12.9 SEC (9.7-13.0)
[2022-02-18 11:08] LABS: ACTIVATED PTT 29.8 SECONDS (25.2-36.5)
[2022-02-18] MEDS ORDERED: VANCOMYCIN 500 MG VIAL (RESTRICTED TO ID ONLY) ONE (12:05)
[2022-02-18] MEDS ORDERED: PIPERACILLIN/TAZOB 3.375 GM 3.375 GM/50 ML BAG IVPB ONE (12:06)
[2022-02-18 13:37] VITALS: BP 128/63; PULSE 75
== END 2022-02-18 13:37 | disposition home or self-care (01) ==
LOC: JER 08:36
DX: R22.32 Localized swelling, mass and lump, left upper limb (principal); T82.9XXA Unspecified complication of cardiac and vascular prosthetic device, implant and graft, initial encounter
CPT/HCPCS: 36415; 80053; 85025; 85610; 85730; 86850; 86900; 86901; 87040; 93990-TC; 96374; 96375; 99284-25

== ENCOUNTER 2022-05-16 12:37 | Emergency (ER) | payer OTHER ==
[2022-05-16 12:46] VITALS: BP 154/80; PULSE 85; RESP 18; TEMP 98.2; BMI 44.8
[2022-05-16] MEDS ORDERED: ACETAMINOPHEN 325 MG TABLET (FP) ONE (15:16)
[2022-05-16] MEDS ORDERED: LIDOCAINE 5% TOPICAL PATCH ONE (15:16)
[2022-05-16] MEDS ORDERED: ACETAMINOPHEN 500 MG TABLET (FP) PO ONE (15:18)
[2022-05-16] MEDS ORDERED: LIDOCAINE 5% TOPICAL PATCH TP ONE (15:18)
[2022-05-16 17:07] LABS: BASO % 0.6 % (0-2.0); EOS % 1.1 % (0-4.5); HEMATOCRIT 35.1 % (35.4-49); HEMOGLOBIN 12.2 GM/dL (11.7-16.9); LYMPH % 6.5 % (8-40); MCH 28.3 pg (25.7-33.7); MCHC 34.7 g/dl (32.0-35.9); MEAN CELL VOLUME 81.5 fl (80-96); MEAN PLT VOLUME 7.8 fl (7.5-11.1); MONO % 8.5 % (3.8-10.2); NEUT % 83.3 % (42.8-82.8); PLATELET COUNT 272 10^3/uL (134-434); RBC 4.31 M/mm3 (4.00-5.60); RDW 14.9 % (11.9-15.9); WHITE BLOOD COUNT 9.7 K/mm3 (4.0-10.0)
[2022-05-16 17:29] LABS: CHLORIDE 106 mmol/L (98-107); SODIUM 138 mmol/L (136-145)
[2022-05-16 17:32] LABS: CALCIUM 9.9 mg/dL (8.5-10.1)
[2022-05-16 17:33] LABS: ALBUMIN 3.7 g/dl (3.4-5.0); ANION GAP 14 MMOL/L (8-16); CO2 18 mmol/L (21-32); GLUCOSE,RANDOM 122 mg/dL (74-106)
[2022-05-16 17:36] LABS: CREATININE 3.8 mg/dL (0.55-1.3); SGOT/AST 16 U/L (15-37); SGPT/ALT 28 U/L (13-61)
[2022-05-16 17:38] LABS: BILIRUBIN,TOTAL 0.4 mg/dL (0.2-1); TOT PROT 7.6 g/dl (6.4-8.2)
[2022-05-16 17:39] LABS: ALK PHOS 60 U/L (45-117)
[2022-05-16 17:55] LABS: BLOOD UREA NITROGEN 121.6 mg/dL (7-18)
[2022-05-16 18:03] LABS: ERYTHROCYTE SEDIMENTATION RATE 90 mm/hr (0-20)
[2022-05-16] MEDS ORDERED: oxyCODONE HCL 5 MG TABLET PO ONE (18:19)
[2022-05-16] MEDS ORDERED: oxyCODONE HCL 5 MG TABLET ONE (18:27)
[2022-05-16] MEDS ORDERED: LIDOCAINE PATCH REMOVAL MC SCH (22:00)
== END 2022-05-16 19:30 | disposition home or self-care (01) ==
LOC: JER 12:37
DX: M79.671 Pain in right foot (principal); M25.511 Pain in right shoulder
CPT/HCPCS: 36415; 73030-TC-RT-FY; 73610-TC-RT-FY; 73630-TC-RT-FY; 80053; 85025; 85651; 86140; 99284-25

== ENCOUNTER 2023-11-11 12:49 | Inpatient (IN) | payer OTHER ==
[2023-11-11 16:13] LABS: BASO % 0.4 % (0-2.0); EOS % 3.6 % (0-4.5); HEMATOCRIT 39.9 % (35.4-49); HEMOGLOBIN 13.7 GM/dL (11.7-16.9); LYMPH % 9.9 % (8-40); MCH 28.7 pg (25.7-33.7); MCHC 34.2 g/dl (32.0-35.9); MEAN CELL VOLUME 83.8 fl (80-96); MONO % 8.1 % (3.8-10.2); PLATELET COUNT 218 10^3/uL (134-434); RBC 4.76 M/mm3 (4.00-5.60); RDW 15.4 % (11.9-15.9); WHITE BLOOD COUNT 8.2 K/mm3 (4.0-10.0)
[2023-11-11 16:14] LABS: EPI CELLS 16 /uL (0-25.1); HYALINE CASTS 0 /uL (0-3.1); PH,URINE 7.5 (5.0-8.0); URINE APPEARANCE CLEAR; URINE BACTERIA 3116 /uL (0-1359); URINE BILIRUBIN NEGATIVE (NEGATIVE); URINE COLOR YELLOW; URINE GLUCOSE (UA) NEGATIVE (NEGATIVE); URINE KETONE NEGATIVE (NEGATIVE); URINE LEUK ESTERASE 2+ (NEGATIVE); URINE NITRITE NEGATIVE (NEGATIVE); URINE PROTEIN 1+ (NEGATIVE); URINE RBC 33 /uL (0-23.9); URINE UROBILINOGEN 0.2 mg/dL (0.2-1.0); URINE WBC 45 /uL (0-25.8)
[2023-11-11 16:21] LABS: INR 1.08 (0.83-1.09); PROTHROMBIN TIME (PATIENT) 12.5 SEC (9.7-13.0)
[2023-11-11 16:23] LABS: ACTIVATED PTT 29.8 SECONDS (25.2-36.5)
[2023-11-11 16:39] LABS: POTASSIUM 4.1 mmol/L (3.5-5.1)
[2023-11-11 16:41] LABS: BLOOD UREA NITROGEN 58.4 mg/dL (7-18); CALCIUM 9.8 mg/dL (8.5-10.1)
[2023-11-11 16:42] LABS: ALBUMIN 3.4 g/dl (3.4-5.0)
[2023-11-11 16:45] LABS: CREATININE 2.8 mg/dL (0.55-1.3)
[2023-11-11] MEDS ORDERED: MEROPENEM 1 GM VIAL (RESTRICTED TO ID) IVPB ONE (16:45)
[2023-11-11 16:46] LABS: BILIRUBIN,TOTAL 0.4 mg/dL (0.2-1); TOT PROT 7.2 g/dl (6.4-8.2)
[2023-11-11] MEDS: MEROPENEM 1 GM in DEXTROSE 5%-WATER 100 ML IVPB ONE (16:53)
[2023-11-11 17:32] LABS: URINE CRYSTALS NONE SEEN /hpf
[2023-11-11 19:39] LABS: ANION GAP 9 mmol/L (4-13); BLOOD UREA NITROGEN 57.2 mg/dL (7-18); CALCIUM 9.2 mg/dL (8.5-10.1); CHLORIDE 112 mmol/L (98-107); CO2 16 mmol/L (21-32); CREATININE 2.8 mg/dL (0.55-1.3); GLUCOSE,RANDOM 91 mg/dL (74-106); POTASSIUM 6.9 mmol/L (3.5-5.1); SODIUM 137 mmol/L (136-145)
[2023-11-11 22:12] LABS: POTASSIUM 3.6 mmol/L (3.5-5.1)
[2023-11-11 22:17] LABS: CALCIUM 9.1 mg/dL (8.5-10.1)
[2023-11-11 22:18] LABS: ALBUMIN 3.1 g/dl (3.4-5.0); BLOOD UREA NITROGEN 57.3 mg/dL (7-18)
[2023-11-11 22:23] LABS: BILIRUBIN,TOTAL 0.4 mg/dL (0.2-1); TOT PROT 6.5 g/dl (6.4-8.2)
[2023-11-12] MEDS: HEPARIN NA (PORCINE) 5,000 UNITS/ML 1ML VIAL SQ SCH (06:11)
[2023-11-12] MEDS: GABAPENTIN 100 MG CAPSULE PO SCH (06:11)
[2023-11-12] MEDS: SODIUM BICARBONATE 650 MG TABLET PO SCH (06:11)
[2023-11-12] MEDS: INSULIN ASPART SLIDING SCALE (NOVOLOG) 1 VIAL SQ SCH (07:08)
[2023-11-12 08:59] LABS: HEMATOCRIT 36.1 % (35.4-49); HEMOGLOBIN 12.6 GM/dL (11.7-16.9); MCH 29.1 pg (25.7-33.7); MCHC 34.7 g/dl (32.0-35.9); MEAN CELL VOLUME 83.9 fl (80-96); MEAN PLT VOLUME 8.4 fl (7.5-11.1); PLATELET COUNT 195 10^3/uL (134-434); RBC 4.31 M/mm3 (4.00-5.60); RDW 15.1 % (11.9-15.9)
[2023-11-12 09:19] LABS: POTASSIUM 4.2 mmol/L (3.5-5.1)
[2023-11-12 09:48] LABS: TOT PROT 6.3 g/dl (6.4-8.2)
[2023-11-12 09:49] LABS: ALBUMIN 2.9 g/dl (3.4-5.0); BILIRUBIN,TOTAL 0.5 mg/dL (0.2-1); CALCIUM 9.5 mg/dL (8.5-10.1)
[2023-11-12 09:50] LABS: MAGNESIUM 2.2 mg/dL (1.8-2.4)
[2023-11-12] MEDS: DOXAZOSIN MESYLATE 4 MG TABLET PO SCH (09:50)
[2023-11-12] MEDS: TORSEMIDE 100 MG TABLET PO SCH (09:50)
[2023-11-12] MEDS: INSULIN (LEVEMIR) 100 UNITS/ML UNITS SQ SCH (09:50)
[2023-11-12 09:52] LABS: BLOOD UREA NITROGEN 56.8 mg/dL (7-18)
[2023-11-12 09:59] LABS: CREATININE 2.8 mg/dL (0.55-1.3)
[2023-11-12] MEDS ORDERED: INSULIN (NOVOLOG) ASPART 100 UNITS/ML 10ML VIAL ONE (11:11)
[2023-11-12] MEDS: LOSARTAN 50MG/HCTZ 12.5MG 1 TAB PO SCH (11:14)
[2023-11-12] MEDS: ATORVASTATIN CA 10 MG TABLET (FP) PO SCH (22:22)
[2023-11-13 08:21] LABS: HEMATOCRIT 37.9 % (35.4-49); HEMOGLOBIN 12.9 GM/dL (11.7-16.9); MCH 28.4 pg (25.7-33.7); MEAN CELL VOLUME 83.5 fl (80-96); MEAN PLT VOLUME 8.4 fl (7.5-11.1); PLATELET COUNT 199 10^3/uL (134-434); RBC 4.54 M/mm3 (4.00-5.60); RDW 14.7 % (11.9-15.9); WHITE BLOOD COUNT 7.3 K/mm3 (4.0-10.0)
[2023-11-13 08:26] LABS: POTASSIUM 3.8 mmol/L (3.5-5.1)
[2023-11-13 08:32] LABS: CALCIUM 9.1 mg/dL (8.5-10.1)
[2023-11-13 08:33] LABS: ALBUMIN 2.9 g/dl (3.4-5.0); BLOOD UREA NITROGEN 56.2 mg/dL (7-18)
[2023-11-13 08:38] LABS: BILIRUBIN,TOTAL 0.6 mg/dL (0.2-1); TOT PROT 6.4 g/dl (6.4-8.2)
[2023-11-13 18:37] VITALS: BMI 43.2
[2023-11-13] MEDS ORDERED: INSULIN (NOVOLOG) ASPART 100 UNITS/ML 10ML VIAL ONE (20:59)
[2023-11-13] MEDS ORDERED: LABETALOL HCL 200 MG TABLET (FP) PO SCH (22:00)
[2023-11-13] MEDS: LABETALOL HCL 200 MG TABLET (FP) PO SCH (22:01)
[2023-11-14] MEDS ORDERED: INSULIN (NOVOLOG) ASPART 100 UNITS/ML 10ML VIAL ONE (06:33)
[2023-11-14] MEDS ORDERED: amLODIPine BESYLATE 5 MG TABLET (FP) PO SCH (10:00)
[2023-11-14] MEDS: amLODIPine BESYLATE 10 MG TABLET (FP) PO SCH (11:12)
[2023-11-14 13:04] LABS: POTASSIUM 4.2 mmol/L (3.5-5.1)
[2023-11-14 13:05] LABS: CALCIUM 9.5 mg/dL (8.5-10.1)
[2023-11-14 13:06] LABS: BLOOD UREA NITROGEN 72.8 mg/dL (7-18)
[2023-11-14 13:09] LABS: CREATININE 3.6 mg/dL (0.55-1.3)
[2023-11-14 13:11] LABS: BILIRUBIN,TOTAL 0.7 mg/dL (0.2-1)
[2023-11-15] MEDS ORDERED: INSULIN (NOVOLOG) ASPART 100 UNITS/ML 10ML VIAL ONE ×2 (05:12→11:58)
[2023-11-15] MEDS ORDERED: ACETAMINOPHEN 500 MG TABLET (FP) PO PRN (06:03)
[2023-11-15] MEDS: ACETAMINOPHEN 500 MG TABLET (FP) PO ONE (06:29)
[2023-11-15 22:17] VITALS: RESP 18
[2023-11-16] MEDS ORDERED: INSULIN (NOVOLOG) ASPART 100 UNITS/ML 10ML VIAL ONE (06:45)
[2023-11-16 08:45] LABS: BASO % 0.3 % (0-2.0); EOS % 4.6 % (0-4.5); HEMATOCRIT 35.5 % (35.4-49); HEMOGLOBIN 12.3 GM/dL (11.7-16.9); MCH 28.8 pg (25.7-33.7); MCHC 34.7 g/dl (32.0-35.9); MEAN CELL VOLUME 82.8 fl (80-96); MEAN PLT VOLUME 8.3 fl (7.5-11.1); MONO % 7.3 % (3.8-10.2); NEUT % 79.8 % (42.8-82.8); PLATELET COUNT 220 10^3/uL (134-434); RBC 4.29 M/mm3 (4.00-5.60); RDW 14.9 % (11.9-15.9); WHITE BLOOD COUNT 8.4 K/mm3 (4.0-10.0)
[2023-11-16 08:54] LABS: POTASSIUM 4.9 mmol/L (3.5-5.1)
[2023-11-16 08:57] LABS: CALCIUM 9.4 mg/dL (8.5-10.1)
[2023-11-16 08:58] LABS: ALBUMIN 2.8 g/dl (3.4-5.0); BLOOD UREA NITROGEN 96.6 mg/dL (7-18)
[2023-11-16 09:01] LABS: CREATININE 4.2 mg/dL (0.55-1.3)
[2023-11-16 09:02] LABS: BILIRUBIN,TOTAL 0.6 mg/dL (0.2-1); TOT PROT 6.8 g/dl (6.4-8.2)
[2023-11-16] MEDS: INSULIN (LEVEMIR) 100 UNITS/ML UNITS SQ SCH (11:59)
[2023-11-17] MEDS ORDERED: INSULIN (NOVOLOG) ASPART 100 UNITS/ML 10ML VIAL ONE (11:12)
[2023-11-17 14:28] VITALS: BP 104/59; PULSE 66; TEMP 98.1
== END 2023-11-17 20:01 | DRG 552 ==
LOC: JER 12:49 → JERBED 18:20 → J7W 22:44 → OBSVTOIN 11-12 00:01 → J7W 11-12 02:35
PROVIDERS: ADMIT Internal Medicine; ATTEND Nurse Practitioner
DX: M48.00 Spinal stenosis, site unspecified (principal); Z68.41 Body mass index [BMI] 40.0-44.9, adult; R29.898 Other symptoms and signs involving the musculoskeletal system; N18.30 Chronic kidney disease, stage 3 unspecified; E11.9 Type 2 diabetes mellitus without complications; E66.01 Morbid (severe) obesity due to excess calories; I10 Essential (primary) hypertension; J44.9 Chronic obstructive pulmonary disease, unspecified; I12.9 Hypertensive chronic kidney disease with stage 1 through stage 4 chronic kidney disease, or unspecified chronic kidney disease
CPT/HCPCS: 36415; 70450-TC; 71045-TC-FY; 72125-TC; 72131-TC; 76775-TC; 80048; 80053; 81003; 82550; 82553; 82962; 83036; 83735; 84100; 84484; 85025; 85027; 85610; 85730; 86850; 86900; 86901; 87086; 87186; 93005; 93010; 97116-GP; 97162-GP; 99285-25; G0378; J1644